=== PATIENT | male | born 1935 | race Native Hawaiian/Other Pacific Islander ===

== ENCOUNTER 2016-07-20 17:07 | Observation (INO) | payer MEDICARE, MEDICAID ==
[~2016-07-20] VITALS: Ht 172.7 cm; Wt 96.9 kg
[~2016-07-20 17:07] MED LIST: AMLO5TAB2 PO; CARB200T PO; CARV12.52 PO; FINA5TAB2 PO; HYDR-3533 PO; HYDR25TA5 PO; ISOS30TA3 PO; LATA0.002 EACH EYE; LISI40TA PO; METF500 PO; PLAV75TA29 PO; ROSU40 PO; SITA1TAB2 PO; TOPI1TAB36 PO; TYLETAB34 PO
[2016-07-20 17:10] VITALS: BP 158/93; PULSE 62; RESP 16; TEMP 97.5; O2SAT 100
[2016-07-20] MEDS ORDERED: SODIUM CHLORIDE 0.9% FLUSH 5 ML FLUSH IVF PRN (18:00)
--- NOTE | 2016-07-20 18:19 | RADHPO ---
EXAM DATE/TIME: 07/20/2016 18:05 [facility] COMPARISON: CHEST SINGLE AP, November 04, 2014, 13:20. INDICATIONS : Syncopal episode, dizziness, weakness starting today MEDICAL HISTORY : Hypertension. Cardiovascular disease. SURGICAL HISTORY : Pacemaker. Stent placement ENCOUNTER: Initial ACUITY: 1 day PAIN SCORE: 0/10 LOCATION: Bilateral chest FINDINGS: A single view of the chest demonstrates the lungs to be symmetrically aerated without evidence of mas s, infiltrate or effusion. The cardiomediastinal contours are unremarkable. Osseous structures are intact. Left-sided pacemaker with intact leads. Right-sided SIGNALLING AND 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 ENGINEER shunt seen. CONCLUSION: No acute disease. Martir Kim MD on July 20, 2016 at 18:17 Board Certified Radiologist. This report was verified electronically.
[2016-07-20 18:21] LABS: BLOOD, URINE TRACE (NEG); GLUCOSE,URINE NEG (NEG); KETONE, URINE NEG (NEG); NITRITE,URINE NEG (NEG)
[2016-07-20 18:25] LABS: AUTOMATED NEUTROPHIL # 5.5 TH/MM3 (1.8-7.7); BASOPHIL % 0.6 % (0.0-2.0); EOSINOPHIL # 0.2 TH/MM3 (0-0.4); EOSINOPHIL % 2.6 % (0.0-4.0); HEMATOCRIT 40.9 % (39.0-51.0); HEMO FLAGS DIFF FINAL; LYMPH % 12.4 % (9.0-44.0); LYMPHOCYTE # 0.9 TH/MM3 (1.0-4.8); MEAN CELL VOLUME 90.6 FL (80.0-100.0); MEAN CORPUSCULAR HEMOGLOBIN 29.4 PG (27.0-34.0); MEAN CORPUSCULAR HGB CONC 32.4 % (32.0-36.0); MONO % 7.2 % (0.0-8.0); NEUT % 77.2 % (16.0-70.0); PLATELET COUNT 214 TH/MM3 (150-450); RED BLOOD COUNT 4.51 MIL/MM3 (4.50-5.90); RED CELL DISTRIBUTION WIDTH 14.6 % (11.6-17.2); WHITE BLOOD COUNT 7.1 TH/MM3 (4.0-11.0)
[2016-07-20 18:26] LABS: METHOD OF COLLECTION CLEAN CATCH; URINE COLOR YELLOW (YELLW/STRAW)
[2016-07-20 18:27] LABS: COMMENT (UR) CULT NOT INDICATED; CULTURE IF INDICATED CULT NOT INDICATED; RBC, URINE 0-3 /hpf (0-3); SQUAMOUS EPITHELIAL CELL URINE 0-5 /hpf (0-5)
[2016-07-20 18:30] VITALS: BP 143/87; PULSE 63; RESP 14; O2SAT 96
[2016-07-20 18:34] LABS: CHLORIDE 113 MEQ/L (98-107); POTASSIUM 4.6 MEQ/L (3.5-5.1); SODIUM (NA) 145 MEQ/L (136-145)
[2016-07-20 18:38] LABS: ANION GAP 9 MEQ/L (5-15); BICARBONATE 23.1 MEQ/L (21.0-32.0); BLOOD UREA NITROGEN 26 MG/DL (7-18); MAGNESIUM 2.5 MG/DL (1.5-2.5)
[2016-07-20 18:41] LABS: ALT (GPT) 32 U/L (12-78); AST (GOT) 18 U/L (15-37); GLOMERULAR FILTRATION RATE 59 ML/MIN (>89)
[2016-07-20 18:43] LABS: TOTAL BILIRUBIN ADULT 0.2 MG/DL (0.2-1.0)
[2016-07-20 18:44] LABS: ALKALINE PHOSPHATASE 140 U/L (45-117)
[2016-07-20 18:57] LABS: APTT (PATIENT) 25.7 SEC (24.3-30.1); PROTHROMBIN TIME - PATIENT 10.8 SEC (9.8-11.6)
--- NOTE | 2016-07-20 19:12 | PD ---
HPI Chief Complaint: Syncope/Near-Syncope Time Seen by Provider: 17:43 Travel History International Travel<30 days: No Contact w/Intl Traveler<30days: No Traveled to known affect area: No History of Present Illness HPI This is a 80-year-old male with a history of 3 MIs with a pacemaker followed by Dr. Alex who presents to the emergency department with an episode earlier today where he was just sitting on the couch and started to feel lightheaded, dizzy like he was going to pass out. His was with him and says he went licea and wasn't responding for a short period of time. She said he looked like he was going to pass out. He denies any chest pain at the time. He denies any shortness of breath. He otherwise has been feeling fine prior to that. This is never happened to him before. PFSH Past Medical History Hx Anticoagulant Therapy: Yes (PLAVIX) Arthritis: Yes Asthma: No Anxiety: No Depression: Yes Heart Rhythm Problems: Yes Cancer: No Cardiac Catheterization: Yes Cardiovascular Problems: Yes (OH x3, HTN, CHOL) High Cholesterol: Yes Chemotherapy: No Chest Pain: Yes Congestive Heart Failure: No COPD: No Cerebrovascular Accident: No Coronary Artery Disease: Yes Diabetes: Yes Patient Takes Glucophage: Yes Diminished Hearing: No Endocrine: Yes Gastrointestinal Disorders: No GERD: No Genitourinary: Yes ("SLOW STARTING") Headaches: Yes Hiatal Hernia: No Hypertension: Yes Immune Disorder: No Implanted Vascular Access Dvce: Yes Kidney Stones: Yes Musculoskeletal: Yes (CHRONIC BACK PAIN) Neurologic: Yes Psychiatric: No Reproductive: No Respiratory: Yes Immunizations Current: Yes Migraines: Yes Myocardial Infarction: Yes (X3) Radiation Therapy: No Renal Failure: No Seizures: Yes Sickle Cell Disease: No Sleep Apnea: Yes Thyroid Disease: No Ulcer: No Past Surgical History AICD: No Arteriovenous Shunt: No Body Medical Devices: "SCREWS AND PLATES" TO LEFT ARM Cardiac Surgery: Yes (PACEMAKER: FEBRUARY 2016) Coronary Stent: Yes (X3) Ear Surgery: No Endocrine Surgery: No Eye Surgery: No Genitourinary Surgery: Yes (RIGHT KIDNEY WHEN YOUNGER, LITHROTRIPSY) Gynecologic Surgery: No Insulin Pump: No Joint Replacement: No Neurologic Surgery: Yes (BRAIN SHUNT) Oral Surgery: No Pacemaker: No Thoracic Surgery: No Other Surgery: Yes Social History Alcohol Use: No Tobacco Use: No Substance Use: No Allergies-Medications (Allergen,Severity, Reaction): Coded Allergies: Morphine (Verified Allergy, Severe, "doctor stated i was unconscious and shaking", 07/20/16) ?SEIZURE Reported Meds & Prescriptions Reported Meds & Active Scripts Active Lortab (Hydrocodone-Acetaminophen) 5-325 Mg Tab 1 Tab PO Q6H PRN Topiramate 50 Mg Tab 50 Mg PO BID Carvedilol 12.5 Mg Tab 12.5 Mg PO BID Reported Latanoprost Opth Drops (Latanoprost) 0.005% Drops 1 Drop EACH EYE HS Refrigerate until opened. Januvia (Sitagliptin Phosphate) 100 Mg Tab 100 Mg PO DAILY Finasteride 5 Mg Tab 5 Mg PO DAILY Do not crush. Isosorbide Mononitrate ER (Isosorbide Mononitrate) 30 Mg Trever 30 Mg PO DAILY Crestor (Rosuvastatin Calcium) 40 Mg Tab 40 Mg PO DAILY Hydrochlorothiazide 25 Mg Tab 25 Mg PO DAILY Tylenol-Codeine #3 (Acetaminophen-Codeine) 300-30 mg Tab 1 Tab PO Q4H PRN Plavix (Clopidogrel Bisulfate) 75 Mg Tab 75 Mg PO DAILY Carbamazepine 200 Mg Tab 200 Mg PO BID Lisinopril 40 Mg Tab 20 Mg PO DAILY Glucophage (Metformin HCl) 500 Mg Tab 1,000 Mg PO BIDPC With meals Amlodipine (Amlodipine Besylate) 5 Mg Tab 10 Mg PO DAILY Review of Systems Except as stated in HPI: all other systems reviewed are Neg Physical Exam Narrative GENERAL: Chronically ill-appearing SKIN: Warm and dry. HEAD: Atraumatic. Normocephalic. EYES: Pupils equal and round. No injection or drainage. ENT: Moist mucous membranes NECK: Trachea midline. CARDIOVASCULAR: Regular rate and rhythm. No murmur appreciated. Swelling of the right lower extremity greater than the left RESPIRATORY: Clear to auscultation. Breath sounds equal bilaterally. GASTROINTESTINAL: Abdomen soft, non-tender, nondistended. MUSCULOSKELETAL: No obvious deformities. NEUROLOGICAL: Awake and alert. No obvious cranial nerve deficits. Moving all extremities. PSYCHIATRIC: Appropriate mood and affect; insight and judgment normal. Data Data Last Documented VS Vital Signs Date Time Temp Pulse Resp B/P Pulse Ox O2 Delivery O2 Flow Rate FiO2 07/20/16 18:30 63 14 143/87 96 07/20/16 17:10 97.5 Orders Complete Blood Count With Diff (07/20/16 17:59) Comprehensive Metabolic Panel (07/20/16 17:59) Magnesium (Mg) (07/20/16 17:59) B-Type Natriuretic Peptide (07/20/16 17:59) Troponin I (07/20/16 17:59) Act Partial Throm Time (Ptt) (07/20/16 17:59) Prothrombin Time / Inr (Pt) (07/20/16 17:59) Urinalysis - C+S If Indicated (07/20/16 17:59) Chest, Single Ap (07/20/16 17:59) Ecg Monitoring (07/20/16 17:59) Iv Access Insert/Monitor (07/20/16 17:59) Oximetry (07/20/16 17:59) Sodium Chloride 0.9% Flush (Ns Flush) (07/20/16 18:00) Admit Order (Ed Use Only) (07/20/16 19:05) Labs Laboratory Tests Test 07/20/16 07/20/16 18:00 18:15 White Blood Count 7.1 TH/MM3 Red Blood Count 4.51 MIL/MM3 Hemoglobin 13.3 GM/DL Hematocrit 40.9 % Mean Corpuscular Volume 90.6 FL Mean Corpuscular Hemoglobin 29.4 PG Mean Corpuscular Hemoglobin 32.4 % Concent Red Cell Distribution Width 14.6 % Platelet Count 214 TH/MM3 Mean Platelet Volume 8.7 FL Neutrophils (%) (Auto) 77.2 % Lymphocytes (%) (Auto) 12.4 % Monocytes (%) (Auto) 7.2 % Eosinophils (%) (Auto) 2.6 % Basophils (%) (Auto) 0.6 % Neutrophils # (Auto) 5.5 TH/MM3 Lymphocytes # (Auto) 0.9 TH/MM3 Monocytes # (Auto) 0.5 TH/MM3 Eosinophils # (Auto) 0.2 TH/MM3 Basophils # (Auto) 0.0 TH/MM3 CBC Comment DIFF FINAL Differential Comment Prothrombin Time 10.8 SEC Prothromb Time International 1.0 RATIO Ratio Activated Partial 25.7 SEC Thromboplast Time Sodium Level 145 MEQ/L Potassium Level 4.6 MEQ/L Chloride Level 113 MEQ/L Carbon Dioxide Level 23.1 MEQ/L Anion Gap 9 MEQ/L Blood Urea Nitrogen 26 MG/DL Creatinine 1.20 MG/DL Estimat Glomerular Filtration 59 ML/MIN Rate Random Glucose 71 MG/DL Calcium Level 8.3 MG/DL Magnesium Level 2.5 MG/DL Total Bilirubin 0.2 MG/DL Aspartate Amino Transf 18 U/L (AST/SGOT) Alanine Aminotransferase 32 U/L (ALT/SGPT) Alkaline Phosphatase 140 U/L Troponin I LESS THAN 0.02 NG/ML Total Protein 7.3 GM/DL Albumin 3.5 GM/DL Urine Collection Type CLEAN CATCH Urine Color YELLOW Urine Turbidity CLEAR Urine pH 6.0 Urine Specific [place] 1.013 Urine Protein NEG mg/dL Urine Glucose (UA) NEG mg/dL Urine Ketones NEG mg/dL Urine Occult Blood TRACE Urine Nitrite NEG Urine Bilirubin NEG Urine Leukocyte Esterase NEG Urine RBC 0-3 /hpf Urine Squamous Epithelial 0-5 /hpf Cells Microscopic Urinalysis Comment CULT NOT INDICATED Urine Collection Time 18:15 [facility] Medical Decision Making Medical Screen Exam Complete: Yes Emergency Medical Condition: Yes Interpretation(s) EKG: Normal sinus rhythm, left axis deviation, right bundle branch block, T- wave inversions in the lateral leads No leukocytosis BUN is slightly elevated Troponin is normal Urinalysis: No infection Chest x-ray: No acute process Differential Diagnosis Arrhythmia, myocardial infarction, vasovagal syncope, dehydration Narrative Course This is a 80-year-old male who presents to the emergency department with a significant cardiac history with an episode of near syncope earlier today. He was placed on a monitor and an IV was established. EKG is similar to prior. Labs were obtained which were reassuring including a normal chest x-ray. Given the patient's significant cardiac history of think the patient should be placed in observation. I did call the [employer] tach who will come and evaluate the patient's pacemaker. Patient also has some right lower extremity swelling and a Doppler ultrasound was ordered Physician Communication Physician Communication Discussed with Dr. Gross Diagnosis Primary Impression: Near syncope Admitting Information Admitting Physician Requests: Observation Margy Covarrubias MD Jul 20, 2016 19:12
[2016-07-20] MEDS ORDERED: NALOXONE HCL 0.4 MG/ML AMP IV PRN (20:00)
[2016-07-20] MEDS ORDERED: SODIUM CHLORIDE 0.9% FLUSH 5 ML FLUSH FLUSH PRN (20:00)
--- NOTE | 2016-07-20 20:56 | RADHPO ---
EXAM DATE/TIME: 07/20/2016 20:24 [facility] COMPARISON: No previous studies available for comparison. INDICATIONS : Right leg swelling. MEDICAL HISTORY : Hypertension. Myocardial infarction. Hypercholesterolemia. Diabetic. Seizure. SURGICAL HISTORY : Pacemaker. Cardiac stent. ENCOUNTER: Initial ACUITY: 1 month PAIN SCORE: 4/10 LOCATION: Right leg. TECHNIQUE: Venous ultrasound of the leg was performed from the inguinal ligament to the proximal calf. Real-kee e, color Doppler and spectral tracing, compression and augmentation techniques were used. FINDINGS: There is normal compressibility of the deep venous system from the inguinal region to the proximal ca lf. No echogenic clot is seen in the lumen of the common femoral, femoral, popliteal, and posterior tibial veins. There is a normal response of the venous system to proximal and distal augmentation an d respiration. CONCLUSION: No DVT in the right leg. Martir Kim MD on July 20, 2016 at 20:54 Board Certified Radiologist. This report was verified electronically.
--- NOTE | 2016-07-20 20:59 | RADHPO ---
EXAM DATE/TIME: 07/20/2016 20:30 [facility] COMPARISON: No previous studies available for comparison. INDICATIONS : Syncope. MEDICAL HISTORY : Hypertension. Hypercholesterolemia. Myocardial infarction. Diabetic. Seizure. SURGICAL HISTORY : Pacemaker. Coronary stent. ENCOUNTER: Initial ACUITY: 1 day PAIN SCORE: 4/10 LOCATION: Bilateral neck PEAK SYSTOLIC VELOCITIES (cm/sec): ICA/CCA RATIO: Right: 0.9 Left: 0.9 ICA: Right: 81 Left: 72 CCA: Right: 87 Left: 97 ECA: Right: 68 Left: 94 VERTEBRAL: Right: 45 antegrade Left: 48 antegrade Elevated flow velocities and ICA/CCA ratios have been found to correlate with increased degrees of vessel stenosis, calculated as percentage of diameter relative to a normal segment of distal ICA/CCA FINDINGS: RIGHT CAROTID: No significant stenosis is visualized. Mild plaque. The waveforms are within normal limits. LEFT CAROTID: No significant stenosis is visualized. Mild plaque. The waveforms are within normal limits. VERTEBRAL ARTERIES: Antegrade flow is seen in both vertebral arteries. MISCELLANEOUS: None. CONCLUSION: No hemodynamically significant stenosis in either carotid artery. Martir Kim MD on July 20, 2016 at 20:57 Board Certified Radiologist. This report was verified electronically.
[2016-07-20 22:23] VITALS: BP 147/78; PULSE 70; RESP 20; TEMP 97.5; O2SAT 97
[2016-07-20] MEDS ORDERED: HYDROmorphone HCL PF 1 MG/ML VIAL IV PUSH ONE (22:30)
[2016-07-20] MEDS: SODIUM CHLORIDE 0.9% FLUSH 5 ML FLUSH FLUSH SCH (22:43)
[2016-07-21] VITALS: BP 162/92; PULSE 60; RESP 18; TEMP 97.7; O2SAT 96
[2016-07-21 00:30] VITALS: PULSE 59
[2016-07-21 04:00] VITALS: BP 150/89; PULSE 60; RESP 18; TEMP 97.2; O2SAT 96
[2016-07-21 06:04] LABS: AUTOMATED NEUTROPHIL # 3.9 TH/MM3 (1.8-7.7); BASOPHIL % 0.7 % (0.0-2.0); EOSINOPHIL # 0.2 TH/MM3 (0-0.4); EOSINOPHIL % 3.3 % (0.0-4.0); HEMATOCRIT 36.4 % (39.0-51.0); HEMO FLAGS DIFF FINAL; LYMPH % 20.1 % (9.0-44.0); LYMPHOCYTE # 1.1 TH/MM3 (1.0-4.8); MEAN CORPUSCULAR HEMOGLOBIN 30.3 PG (27.0-34.0); MEAN CORPUSCULAR HGB CONC 33.7 % (32.0-36.0); MONO % 7.8 % (0.0-8.0); NEUT % 68.1 % (16.0-70.0); PLATELET COUNT 185 TH/MM3 (150-450); RED BLOOD COUNT 4.04 MIL/MM3 (4.50-5.90); RED CELL DISTRIBUTION WIDTH 13.9 % (11.6-17.2); WHITE BLOOD COUNT 5.6 TH/MM3 (4.0-11.0)
[2016-07-21 06:10] LABS: POTASSIUM 4.8 MEQ/L (3.5-5.1)
[2016-07-21 06:13] LABS: BICARBONATE 26.3 MEQ/L (21.0-32.0)
[2016-07-21] MEDS: SODIUM CHLORIDE 0.9% FLUSH 5 ML FLUSH FLUSH SCH (07:49)
[2016-07-21 09:09] VITALS: BP 183/93; PULSE 60; RESP 16; TEMP 96.2; O2SAT 97
[2016-07-21] MEDS ORDERED: FINASTERIDE 5 MG TAB PO SCH (11:00)
[2016-07-21] MEDS ORDERED: CARVEDILOL 12.5 MG TAB PO SCH (11:00)
[2016-07-21] MEDS ORDERED: carBAMazepine 200 MG TAB PO SCH (11:00)
[2016-07-21] MEDS ORDERED: CLOPIDOGREL 75 MG TAB PO SCH (11:00)
[2016-07-21] MEDS ORDERED: LISINOPRIL 20 MG TAB PO SCH (11:00)
[2016-07-21] MEDS ORDERED: ISOSORBIDE MONONITRATE 30 MG TAB PO SCH (11:00)
[2016-07-21] MEDS ORDERED: ACETAMINOPHEN/CODEINE 300 MG/30 MG TAB PO PRN (11:00)
[2016-07-21] MEDS ORDERED: NON-FORMULARY DRUG (Rosuvastatin (Crestor) 40 MG) PO SCH (11:00)
[2016-07-21] MEDS ORDERED: amLODIPine BESYLATE 5 MG TAB PO SCH (11:00)
[2016-07-21] MEDS ORDERED: TOPIRAMATE 25 MG TAB PO SCH (11:00)
[2016-07-21] MEDS ORDERED: HYDROCHLOROTHIAZIDE 25 MG TAB PO SCH (11:00)
--- NOTE | 2016-07-21 11:27 | HHI.DCPOC ---
Discharge Care Plan Goals to Promote Your Health * To prevent worsening of your condition and complications * To maintain your health at the optimal level Directions to Meet Your Goals Take your medications as prescribed Follow your dietary instruction Follow activity as directed Keep your appointments as scheduled Take your immunizations and boosters as scheduled If your symptoms worsen call your PCP, if no PCP go to Urgent Care Center or Emergency Room Smoking is Dangerous to Your Health. Avoid second hand smoke Call the 24-hour hour crisis hotline for domestic abuse at So Carrillo MD Jul 21, 2016 11:27
--- NOTE | 2016-07-21 11:33 | HHI.HP ---
[facility] Service [facility] Primary Care Physician Duong Arguello MD Admission Diagnosis near syncope Diagnoses: Chief Complaint: Near syncopal episode Travel History International Travel<30 Days: No Contact w/Intl Traveler <30 Da: No Traveled to Known Affected Are: No History of Present Illness This patient is a 80-year-old gentleman with a history of coronary disease and a pacemaker who came to the emergency room with an episode of lightheaded feeling associated with dizziness. He did not pass out but felt very clammy. He was brought to the emergency room by his girlfriend. Patient notes no chest pain or shortness of breath prior to this episode. He has not had any nausea or vomiting and denies any recent infectious issues. He has not had any recent change in medications. He last saw his curbstone setter at the end of June and has been in his usual state of health. Here on telemetry he has had no arrhythmias, carotid ultrasounds and other images are unremarkable. Patient has not had any further symptoms. I did speak with Dr. Alex his curbstone setter who recommended patient see him and also further medical management and patient is agreeable to this plan. Review of Systems Constitutional: COMPLAINS OF: Diaphoretic episodes, DENIES: Fatigue, Fever, Weight gain, Weight loss, Chills, Dizziness, Change in appetite, Night Sweats Endocrine: DENIES: Heat/cold intolerance, Polydipsia, Polyuria, Polyphagia Eyes: DENIES: Blurred vision, Diplopia, Eye inflammation, Eye pain, Vision loss , Photosensitivity, Double Vision Ears, nose, mouth, throat: DENIES: Tinnitus, Hearing loss, Vertigo, Nasal discharge, Oral lesions, Throat pain, Hoarseness, Ear Pain, Running Nose, Epistaxis, Sinus Pain, Toothache, Odynophagia Respiratory: DENIES: Apneas, Cough, Snoring, Wheezing, Hemoptysis, Sputum production, Shortness of breath Cardiovascular: DENIES: Chest pain, Palpitations, Syncope, Dyspnea on Exertion , PND, Lower Extremity Edema, Orthopnea, Claudication Gastrointestinal: DENIES: Abdominal pain, Black stools, Bloody stools, Constipation, Diarrhea, Nausea, Vomiting, Difficulty Swallowing, Anorexia Genitourinary: DENIES: Sexual dysfunction, Urinary frequency, Urinary incontinence, Urgency, Hematuria, Dysuria, Nocturia, Penile Discharge, Testicular Pain, Testicular Swelling Musculoskeletal: DENIES: Joint pain, Muscle aches, Stiffness, Joint Swelling, Back pain, Neck pain Hematologic/lymphatic: DENIES: Bruising, Lymphadenopathy Immunologic/allergic: DENIES: Eczema, Urticaria Neurologic: DENIES: Abnormal gait, Headache, Localized weakness, Paresthesias, Seizures, Speech Problems, Tremor, Poor Balance Psychiatric: DENIES: Anxiety, Confusion, Mood changes, Depression, Hallucinations, Agitation, Suicidal Ideation, Homicidal Ideation, Delusions Past Family Social History Past Medical History Pace maker patient Chronic back pain History of seizures Kidney stones Coronary disease with stent 3 Prostate troubles Depression/anxiety Chronic back pain Diabetes and hypertension Past Surgical History Pacemaker placement Cardiac stenting Left arm surgery Brain shunt Reported Medications Reviewed in the medical record Allergies: Coded Allergies: Morphine (Verified Allergy, Severe, "doctor stated i was unconscious and shaking", 07/20/16) ?SEIZURE Active Ordered Medications Reviewed in the medical record Family History Family history of hypertension Social History No current tobacco or alcohol dependency, lives alone but has a girlfriend Physical Exam Vital Signs Vital Signs Date Time Temp Pulse Resp B/P Pulse Ox O2 Delivery O2 Flow Rate FiO2 07/21/16 09:09 96.2 60 16 183/93 97 07/21/16 04:00 97.2 60 18 150/89 96 07/21/16 00:30 59 07/21/16 00:00 97.7 60 18 162/92 96 07/20/16 22:23 97.5 70 20 147/78 97 Room Air 07/20/16 18:30 63 14 143/87 96 07/20/16 17:10 97.5 62 16 158/93 100 Physical Exam GENERAL: This is a well-nourished, well-developed patient, anxious but in no acute distress SKIN: No rashes, ecchymoses or lesions. Cool and dry. HEAD: Atraumatic. Normocephalic. No temporal or scalp tenderness. EYES: Pupils equal round and reactive. Extraocular motions intact. No scleral icterus. No injection or drainage. ENT: Nose without bleeding, purulent drainage or septal hematoma. Throat without erythema, tonsillar hypertrophy or exudate. Uvula midline. Airway patent. NECK: Trachea midline. No JVD or lymphadenopathy. Supple, nontender, no meningeal signs. CARDIOVASCULAR: Regular rate and rhythm without murmurs, gallops, or rubs. RESPIRATORY: Pacemaker palpable, Clear to auscultation. Breath sounds equal bilaterally. No wheezes, rales, or rhonchi. GASTROINTESTINAL: Abdomen soft, non-tender, nondistended. No hepato-splenomegaly , or palpable masses. No guarding. MUSCULOSKELETAL: Extremities without clubbing, cyanosis, or edema. No joint tenderness, effusion, or edema noted. No calf tenderness. Negative Homans sign bilaterally. NEUROLOGICAL: Awake and alert. Cranial nerves II through XII intact. Motor and sensory grossly within normal limits. Five out of 5 muscle strength in all muscle groups. Normal speech. Laboratory Laboratory Tests Test 07/20/16 07/20/16 07/21/16 07/21/16 18:00 18:15 00:10 05:27 White Blood Count 7.1 5.6 Red Blood Count 4.51 4.04 Hemoglobin 13.3 12.3 Hematocrit 40.9 36.4 Mean Corpuscular Volume 90.6 90.0 Mean Corpuscular Hemoglobin 29.4 30.3 Mean Corpuscular Hemoglobin 32.4 33.7 Concent Red Cell Distribution Width 14.6 13.9 Platelet Count 214 185 Mean Platelet Volume 8.7 8.5 Neutrophils (%) (Auto) 77.2 68.1 Lymphocytes (%) (Auto) 12.4 20.1 Monocytes (%) (Auto) 7.2 7.8 Eosinophils (%) (Auto) 2.6 3.3 Basophils (%) (Auto) 0.6 0.7 Neutrophils # (Auto) 5.5 3.9 Lymphocytes # (Auto) 0.9 1.1 Monocytes # (Auto) 0.5 0.4 Eosinophils # (Auto) 0.2 0.2 Basophils # (Auto) 0.0 0.0 CBC Comment DIFF FINAL DIFF FINAL Differential Comment Prothrombin Time 10.8 Prothromb Time International 1.0 Ratio Activated Partial 25.7 Thromboplast Time Sodium Level 145 146 Potassium Level 4.6 4.8 Chloride Level 113 113 Carbon Dioxide Level 23.1 26.3 Anion Gap 9 7 Blood Urea Nitrogen 26 24 Creatinine 1.20 1.20 Estimat Glomerular Filtration 59 59 Rate Random Glucose 71 109 Calcium Level 8.3 8.3 Magnesium Level 2.5 Total Bilirubin 0.2 Aspartate Amino Transf 18 (AST/SGOT) Alanine Aminotransferase 32 (ALT/SGPT) Alkaline Phosphatase 140 Troponin I LESS THAN 0.02 0.02 0.02 B-Type Natriuretic Peptide 39 Total Protein 7.3 Albumin 3.5 Urine Collection Type CLEAN CATCH Urine Color YELLOW Urine Turbidity CLEAR Urine pH 6.0 Urine Specific [place] 1.013 Urine Protein NEG Urine Glucose (UA) NEG Urine Ketones NEG Urine Occult Blood TRACE Urine Nitrite NEG Urine Bilirubin NEG Urine Leukocyte Esterase NEG Urine RBC 0-3 Urine Squamous Epithelial 0-5 Cells Microscopic Urinalysis Comment CULT NOT INDICATED Urine Collection Time 18:15 Total Creatine Kinase 276 258 Result Diagram: 07/21/1652607/21/16526 Imaging Last Impressions Chest X-Ray 07/20/16 1759 Signed Impressions: Service Date/Time: Wednesday, July 20, 2016 18:05 - CONCLUSION: No acute disease. Martir Kim MD Lower Extremity Ultrasound 07/20/16 0000 Signed Impressions: Service Date/Time: Wednesday, July 20, 2016 20:24 - CONCLUSION: No DVT in the right leg. Martir Kim MD Carotid Artery Ultrasound 07/20/16 0000 Signed Impressions: Service Date/Time: Wednesday, July 20, 2016 20:30 - CONCLUSION: No hemodynamically significant stenosis in either carotid artery. Martir Kim MD Assessment and Plan Problem List: (1) Pre-syncope ICD Code: R55 Status: Resolved Plan: Patient did have a near syncopal episode on the sofa which was unprovoked. At this point patient has no acute findings on telemetry, he appears to function well. Labs and images are unremarkable. This point patient will be discharged home to follow-up with his curbstone setter. I spoke with Dr. Alex who agrees with this plan. Patient will continue with his home medications Diabetes, hypertension, cardiac disease appears stable at this time Assessment and Plan Discharge home Activity unrestricted Diet diabetic, heart healthy So Carrillo MD Jul 21, 2016 11:33
--- NOTE | 2016-07-21 11:54 | EKG ---
Date Performed: 07/20/2016 Time Performed: 18:33:56 PTAGE: 80 years EKG: Possible ectopic atrial rhythm. Left axis deviation RBBB with left anterior fascicular bloc k Lateral T wave changes are nonspecific First degree AV block Since previous tracing, no significant change noted Abnormal ECG PREVIOUS TRACING : 07/20/2016 17.15 DOCTOR: Tony Wood Interpretating Date/Time 07/21/2016 11:54:31
--- NOTE | 2016-07-21 11:54 | EKG ---
Date Performed: 07/20/2016 Time Performed: 17:15:56 PTAGE: 80 years EKG: Sinus rhythm Left atrial abnormality Left axis deviation Left anterior fascicular block Left bundle branch block Anterior T wave abnormalities improved since the prior tracing. Abnormal ECGPREVIOUS TRACING : 06/11/2016 05.55 DOCTOR: Tony Wood Interpretating Date/Time 07/21/2016 11:54:15
[2016-07-21] MEDS ORDERED: ATORVASTATIN 40 MG TAB PO SCH (12:00)
[2016-07-21] MEDS ORDERED: ATORVASTATIN 80 MG TAB PO SCH (13:00)
--- NOTE | 2016-07-21 20:33 | EKG ---
Date Performed: 07/20/2016 Time Performed: 23:42:16 PTAGE: 80 years EKG: Atrial paced rhythm Left axis deviation Left anterior fascicular block RBBB Compared to brandon or tracing no significant change Abnormal ECG PREVIOUS TRACING : 07/20/2016 18.33 DOCTOR: Tony Wood Interpretating Date/Time 07/21/2016 20:32:06
--- NOTE | 2016-07-21 20:35 | EKG ---
Date Performed: 07/21/2016 Time Performed: 00:14:52 PTAGE: 80 years EKG: Atrial pacing Left axis deviation Left anterior fascicular block RBBB Compared to prior tra cing no significant change Abnormal ECG PREVIOUS TRACING : 07/20/2016 18.33 DOCTOR: Tony Wood Interpretating Date/Time 07/21/2016 20:37:32
--- NOTE | 2016-07-21 20:37 | EKG ---
Date Performed: 07/21/2016 Time Performed: 06:02:16 PTAGE: 80 years EKG: Atrial pacing Left axis deviation Left anterior fascicular block RBBB Compared to prior tra cing no significant change Abnormal ECG PREVIOUS TRACING : 07/21/2016 00.14 DOCTOR: Tony Wood Interpretating Date/Time 07/21/2016 20:38:27
--- NOTE | 2016-07-22 09:35 | EC ---
Study Study Date:07/21/2016 STUDY CONCLUSIONS SUMMARY - Left ventricle: The cavity size was normal. Wall thickness was normal. Systolic function was normal. The estimated ejection fraction was in the range of 50% to 55%. Wall motion was normal; there were no regional wall motion abnormalities. - Mitral valve: Mild regurgitation. - Tricuspid valve: Mild regurgitation. - Pulmonary arteries: PA peak pressure: 39mm Hg (S). If LV function is below 40, please consider prescribing an ACEI or ARB or document rationale for non-use. PROCEDURE DATA STUDY STATUS: Elective. Procedure: Transthoracic echocardiography. Image quality was good. Scanning was performed from the parasternal, apical, and subcostal acoustic windows. Study completion: The patient tolerated the procedure well. Transthoracic echocardiography. M-mode, complete 2D, complete spectral Doppler, and color Doppler. Patient status: Inpatient. CARDIAC ANATOMY LEFT VENTRICLE: The cavity size was normal. Wall thickness was normal. Systolic function was normal. The estimated ejection fraction was in the range of 50% to 55%. Wall motion was normal; there were no regional wall motion abnormalities. AORTIC VALVE: Trileaflet; normal thickness leaflets. Doppler: Transvalvular velocity was within the normal range. There was no stenosis. No regurgitation. AORTA: Aortic root: The aortic root was normal in size. MITRAL VALVE: Structurally normal valve. Doppler: Transvalvular velocity was within the normal range. There was no evidence for stenosis. Mild regurgitation. LEFT ATRIUM: The atrium was normal in size. RIGHT VENTRICLE: The cavity size was normal. Wall thickness was normal. PULMONIC VALVE: Doppler: Transvalvular velocity was within the normal range. There was no evidence for stenosis. No regurgitation. TRICUSPID VALVE: Structurally normal valve. Doppler: Transvalvular velocity was within the normal range. Mild regurgitation. PULMONARY ARTERY: The main pulmonary artery was normal-sized. Systolic pressure was within the normal range. RIGHT ATRIUM: The atrium was normal in size. PERICARDIUM: There was no pericardial effusion. SYSTEMIC VEINS: Inferior vena cava: The vessel was normal in size. BASIC MEASUREMENTS ADULT Normal Left ventricle LV internal dimension, ED, chordal level, 48.2 mm 43-52 PLAX LV internal dimension, ES, chordal level, 37.2 mm 23-38 PLAX Fractional shortening, chordal level, PLAX *23 % >29 LV posterior wall thickness, ED 14.9 mm IVS/LVPW ratio, ED *1.54 <1.3 Ventricular septum Septal thickness, ED 22.9 mm Aortic valve Leaflet separation 24 mm 15-26 Right ventricle RV internal dimension, ED, PLAX 25.1 mm 19-38 BASIC MEASUREMENTS ADULT Normal Aortic valve Leaflet separation 24 mm 15-26 Aorta Root diameter, ED *41 mm 20-37 Left atrium Anterior-posterior dimension, ES *46 mm 19-40 LA/aortic root ratio 1.12 DOPPLER MEASUREMENTS ADULT Normal Main pulmonary artery Pressure, S *39 mm Hg =30 Tricuspid valve Regurgitant peak velocity 269 cm/s Peak RV-RA gradient, S 29 mm Hg Maximal regurgitant velocity 269 cm/s Systemic veins Estimated CVP 10 mm Hg Right ventricle RV pressure, S *39 mm Hg <30 LEGEND: Mean values are shown as u=mean value. Asterisk (*) coon values outside specified normal range. Prepared and signed by Obi You [id number]
[2016-07-22] MEDS ORDERED: BLOOD GLUCOSE T1 TES (13:11)
[2016-07-22] MEDS ORDERED: LANCETS1 MI1 (13:13)
[2016-08-25] MEDS ORDERED: AMOX125S2 PO (11:12)
[2016-08-25] MEDS ORDERED: BENZ100 PO (11:12)
[2016-08-25] MEDS ORDERED: BLOOD PRESSURE1 M20 (11:24)
[2016-08-25] MEDS ORDERED: LORA10TA PO (11:28)
[2016-08-25] MEDS ORDERED: ALBU0.08 NEB (18:52)
[2016-08-30] MEDS ORDERED: CARB200T PO (15:07)
[2016-08-30] MEDS ORDERED: TAMS0.4C4 PO (15:07)
[2016-08-30] MEDS ORDERED: PLAV75TA29 PO (15:07)
[2016-09-30] MEDS ORDERED: TOPA100T11 PO (13:39)
[2016-11-10] MEDS ORDERED: Insulin Syringe (15:54)
[2016-11-23] MEDS ORDERED: CARV12.52 PO (15:23)
[2016-12-23] MEDS ORDERED: Insulin Syringe (13:28)
[2016-12-28] MEDS ORDERED: AUGM875T3 PO (15:17)
[2016-12-28] MEDS ORDERED: PRED20 PO (15:17)
[2017-01-02] MEDS ORDERED: BLOOD GLUCOSE T1 TES (15:19)
== END 2016-07-21 12:32 | disposition home or self-care (01) ==
LOC: PHED 17:07 → PHEDA 19:06 → PH3B 23:56
PROVIDERS: ADMIT Hospitalist; ATTEND Hospitalist
DX: R55 Syncope and collapse (principal); M79.89 Other specified soft tissue disorders; I10 Essential (primary) hypertension; I25.10 Atherosclerotic heart disease of native coronary artery without angina pectoris; I25.2 Old myocardial infarction; G47.30 Sleep apnea, unspecified; E11.9 Type 2 diabetes mellitus without complications; R94.31 Abnormal electrocardiogram [ECG] [EKG]; E78.00 Pure hypercholesterolemia, unspecified; M19.90 Unspecified osteoarthritis, unspecified site; Z95.0 Presence of cardiac pacemaker; Z95.5 Presence of coronary angioplasty implant and graft; Z87.442 Personal history of urinary calculi
CPT/HCPCS: 71010; 80048; 80053; 81001; 82550; 83735; 83880; 84484; 85025; 85610; 85730; 93005; 93306; 93880; 93971; 97162; 99285; G0378; G8987; G8988; J1170

== ENCOUNTER 2016-07-28 14:24 | Emergency (ER) | payer MEDICARE, MEDICAID ==
[~2016-07-28] VITALS: Ht 172.7 cm; Wt 97.0 kg
[~2016-07-28 14:24] MED LIST changes: +BLOOD GLUCOSE T1 TES; +LANCETS1 MI1
[2016-07-28 14:26] VITALS: BP 143/97; PULSE 79; RESP 24; TEMP 99.2; O2SAT 96
[2016-07-28] MEDS ORDERED: LANTUS2P SQ (14:56)
[2016-07-28] MEDS ORDERED: RESP: ALBUTEROL 2.5 MG/IPRATROPIUM 0.5 MG NEB (SCH) NEB ONE (15:30)
[2016-07-28] MEDS ORDERED: SODIUM CHLORIDE 0.9% FLUSH 5 ML FLUSH IVF PRN (15:30)
[2016-07-28] MEDS ORDERED: BENZONATATE 100 MG CAP PO ONE (15:30)
--- NOTE | 2016-07-28 15:54 | PD ---
HPI Chief Complaint: Respiratory Symptoms Time Seen by Provider: 14:33 Travel History International Travel<30 days: No Contact w/Intl Traveler<30days: No Traveled to known affect area: No History of Present Illness HPI Patient is 80-year-old male presents to emergency department with cough congestion and shortness of breath for the past 5 days. Patient states he recently had a long trip to [place] as well as a long trip to [place]. He started having symptoms in [place] went to an emergency department there and "they didn't do anything for me except a chest x-ray" and then he decided to return to the [facility]. Patient has a recent admission for near syncopal symptoms where he had an echocardiogram showing an EF of 5055%. Chest x-ray that time was negative he was observed overnight and was discharged in the next morning. He has not followed with a primary care physician since. PFSH Past Medical History Hx Anticoagulant Therapy: Yes (PLAVIX) Arthritis: Yes Asthma: No Anxiety: No Depression: Yes Heart Rhythm Problems: Yes Cancer: No Cardiac Catheterization: Yes Cardiovascular Problems: Yes (STENTS, CAD) High Cholesterol: Yes Chemotherapy: No Chest Pain: Yes Congestive Heart Failure: No COPD: No Cerebrovascular Accident: No Coronary Artery Disease: Yes Diabetes: Yes Patient Takes Glucophage: Yes Diminished Hearing: No Endocrine: Yes Gastrointestinal Disorders: No GERD: No Genitourinary: Yes ("SLOW STARTING") Headaches: Yes Hiatal Hernia: No Hypertension: Yes Immune Disorder: No Implanted Vascular Access Dvce: Yes Kidney Stones: Yes Musculoskeletal: Yes (CHRONIC BACK PAIN) Neurologic: Yes Psychiatric: No Reproductive: No Respiratory: Yes (COPD) Immunizations Current: Yes Migraines: Yes Myocardial Infarction: Yes (X3) Radiation Therapy: No Renal Failure: No Seizures: Yes Sickle Cell Disease: No Sleep Apnea: Yes Thyroid Disease: No Ulcer: No Past Surgical History AICD: No Arteriovenous Shunt: No Body Medical Devices: "SCREWS AND PLATES" TO LEFT ARM Cardiac Surgery: Yes (PACEMAKER: FEBRUARY 2016) Coronary Stent: Yes (X3) Ear Surgery: No Endocrine Surgery: No Eye Surgery: No Genitourinary Surgery: Yes (RIGHT KIDNEY WHEN YOUNGER, LITHROTRIPSY) Gynecologic Surgery: No Insulin Pump: No Joint Replacement: No Neurologic Surgery: Yes (BRAIN SHUNT) Oral Surgery: No Pacemaker: No Thoracic Surgery: No Other Surgery: Yes Social History Alcohol Use: No Tobacco Use: No Substance Use: No Allergies-Medications (Allergen,Severity, Reaction): Coded Allergies: Morphine (Verified Allergy, Severe, "doctor stated i was unconscious and shaking", 07/29/16) ?SEIZURE Reported Meds & Prescriptions Reported Meds & Active Scripts Active Nebulizer/Adult Mask (N/A) 1 Kit Kit 1 Kit .ROUTE DIRECTED Albuterol Neb (Albuterol Sulfate) 2.5 Mg/3 Ml Neb 2.5 Mg NEB Q4HR NEB While awake Ventolin Hfa 18 GM Inh (Albuterol Sulfate) 90 Mcg/Act Aer 2 Puff INH Q4-6H PRN Augmentin (Amoxicillin-Clavulanate) 500-125 mg Tab 500 Mg PO Q8H 10 Days Lancets 1 Mis Mis 1 Ea .ROUTE DIRECTED Lancets for Contour Glucometer - check blood glucose twice daily. Dispense: #200 lancets Blood Glucose Test Strips 1 Kaila Kaila 1 Ea .ROUTE DIRECTED Contour Test 100 Strips - check blood glucose twice daily. Dispense: #200 test strips Topiramate 50 Mg Tab 50 Mg PO BID Carvedilol 12.5 Mg Tab 12.5 Mg PO BID Reported Lantus Inj (Insulin Glargine) 1,000 Unit/10 Ml Vial 25 Units SQ HS Latanoprost Opth Drops (Latanoprost) 0.005% Drops 1 Drop EACH EYE HS Refrigerate until opened. Januvia (Sitagliptin Phosphate) 100 Mg Tab 100 Mg PO DAILY Finasteride 5 Mg Tab 5 Mg PO DAILY Do not crush. Isosorbide Mononitrate ER (Isosorbide Mononitrate) 30 Mg Trever 30 Mg PO DAILY Crestor (Rosuvastatin Calcium) 40 Mg Tab 40 Mg PO DAILY Hydrochlorothiazide 25 Mg Tab 25 Mg PO DAILY Plavix (Clopidogrel Bisulfate) 75 Mg Tab 75 Mg PO DAILY Carbamazepine 200 Mg Tab 200 Mg PO BID Lisinopril 40 Mg Tab 20 Mg PO DAILY Glucophage (Metformin HCl) 500 Mg Tab 1,000 Mg PO BIDPC With meals Amlodipine (Amlodipine Besylate) 5 Mg Tab 10 Mg PO DAILY Physical Exam Narrative GENERAL: Well-developed well-nourished no apparent distress SKIN: Warm and dry. HEAD: Atraumatic. Normocephalic. EYES: Pupils equal and round. No scleral icterus. No injection or drainage. ENT: No nasal bleeding or discharge. Mucous membranes pink and moist. NECK: Trachea midline. No JVD. CARDIOVASCULAR: Regular rate and rhythm. No murmur appreciated. RESPIRATORY: No accessory muscle use. Clear to auscultation. Breath sounds equal bilaterally. Mildly tachypneic no increased work of breathing. Scant wheeze and faint rales in the left base. GASTROINTESTINAL: Abdomen soft, non-tender, nondistended. Hepatic and splenic margins not palpable. MUSCULOSKELETAL: No obvious deformities. No clubbing. No cyanosis. No edema. NEUROLOGICAL: Awake and alert. No obvious cranial nerve deficits. Motor grossly within normal limits. Normal speech. PSYCHIATRIC: Appropriate mood and affect; insight and judgment normal. Data Data Last Documented VS Vital Signs Date Time Temp Pulse Resp B/P Pulse Ox O2 Delivery O2 Flow Rate FiO2 07/28/16 18:56 76 16 142/94 95 07/28/16 15:56 Room Air 07/28/16 14:26 99.2 Orders Electrocardiogram (07/28/16 14:45) Chest, Pa & Lat (07/28/16 ) Complete Blood Count With Diff (07/28/16 15:26) Comprehensive Metabolic Panel (07/28/16 15:26) Magnesium (Mg) (07/28/16 15:26) Prothrombin Time / Inr (Pt) (07/28/16 15:26) Act Partial Throm Time (Ptt) (07/28/16 15:26) Troponin I (07/28/16 15:26) Ecg Monitoring (07/28/16 15:26) Bilateral Bp Monitoring (07/28/16 15:26) Iv Access Insert/Monitor (07/28/16 15:26) Oximetry (07/28/16 15:26) Oxygen Administration (07/28/16 15:26) Sodium Chloride 0.9% Flush (Ns Flush) (07/28/16 15:30) Ct Pulmonary Angiogram (07/28/16 15:26) Albuterol-Ipratropium Neb (Duoneb Neb) (07/28/16 15:30) Benzonatate (Tessalon) (07/28/16 15:30) Acetaminophen (Tylenol) (07/28/16 16:00) Iohexol 350 Inj (Omnipaque 350 Inj) (07/28/16 16:53) Ondansetron Inj (Zofran Inj) (07/28/16 17:45) Hydromorphone Pf Inj (Dilaudid Pf Inj) (07/28/16 17:45) Labs Laboratory Tests Test 07/28/16 15:50 White Blood Count 4.9 TH/MM3 Red Blood Count 4.52 MIL/MM3 Hemoglobin 13.2 GM/DL Hematocrit 40.8 % Mean Corpuscular Volume 90.2 FL Mean Corpuscular Hemoglobin 29.2 PG Mean Corpuscular Hemoglobin 32.4 % Concent Red Cell Distribution Width 14.6 % Platelet Count 220 TH/MM3 Mean Platelet Volume 8.5 FL Neutrophils (%) (Auto) 70.2 % Lymphocytes (%) (Auto) 12.0 % Monocytes (%) (Auto) 9.1 % Eosinophils (%) (Auto) 7.1 % Basophils (%) (Auto) 1.6 % Neutrophils # (Auto) 3.5 TH/MM3 Lymphocytes # (Auto) 0.6 TH/MM3 Monocytes # (Auto) 0.4 TH/MM3 Eosinophils # (Auto) 0.3 TH/MM3 Basophils # (Auto) 0.1 TH/MM3 CBC Comment DIFF FINAL Differential Comment Prothrombin Time 10.2 SEC Prothromb Time International 0.9 RATIO Ratio Activated Partial 26.2 SEC Thromboplast Time Sodium Level 145 MEQ/L Potassium Level 4.0 MEQ/L Chloride Level 110 MEQ/L Carbon Dioxide Level 25.5 MEQ/L Anion Gap 10 MEQ/L Blood Urea Nitrogen 23 MG/DL Creatinine 1.20 MG/DL Estimat Glomerular Filtration 59 ML/MIN Rate Random Glucose 58 MG/DL Calcium Level 9.1 MG/DL Magnesium Level 2.4 MG/DL Total Bilirubin 0.3 MG/DL Aspartate Amino Transf 30 U/L (AST/SGOT) Alanine Aminotransferase 41 U/L (ALT/SGPT) Alkaline Phosphatase 126 U/L Troponin I LESS THAN 0.02 NG/ML Total Protein 7.3 GM/DL Albumin 3.4 GM/DL [facility] Medical Decision Making Medical Screen Exam Complete: Yes Emergency Medical Condition: Yes Differential Diagnosis CHF unlikely, pneumonia, PE, URI. Narrative Course Roomed in the emergency department, lab workup and CT PE was ordered, discussed with Dr. Zeng to follow workup and disposition properly. Scripts Nebulizer/Adult Mask 1 Kit Kit #1 KIT .ROUTE DIRECTED Ref 0 Prov:MacMahon,Anselmo MD 07/28/16 Albuterol Neb 2.5 Mg/3 Ml Neb2.5 Mg NEB Q4HR NEB #60 NEBULE Ref 0 While awake Prov:Anselmo Davis MD 07/28/16 Albuterol 18 GM Inh (Ventolin Hfa 18 GM Inh)90 Mcg/Act Aer2 Puff INH Q4-6H PRN ( SHORTNESS OF BREATH) #1 INHALER Ref 0 Prov:Anselmo Davis MD 07/28/16 Amoxicillin-Clavulanate (Augmentin)500-125 mg [id number] Mg PO Q8H 10 Days Ref 0 Prov:Anselmo Davis MD 07/28/16 Bhupinder Feranndez MD Jul 28, 2016 15:54
[2016-07-28 15:56] VITALS: BP 153/96; PULSE 76; RESP 16; RESP 18; O2SAT 95
[2016-07-28 16:00] LABS: AUTOMATED NEUTROPHIL # 3.5 TH/MM3 (1.8-7.7); BASOPHIL # 0.1 TH/MM3 (0-0.2); BASOPHIL % 1.6 % (0.0-2.0); EOSINOPHIL # 0.3 TH/MM3 (0-0.4); EOSINOPHIL % 7.1 % (0.0-4.0); HEMATOCRIT 40.8 % (39.0-51.0); HEMO FLAGS DIFF FINAL; LYMPHOCYTE # 0.6 TH/MM3 (1.0-4.8); MEAN CELL VOLUME 90.2 FL (80.0-100.0); MEAN CORPUSCULAR HEMOGLOBIN 29.2 PG (27.0-34.0); MEAN CORPUSCULAR HGB CONC 32.4 % (32.0-36.0); MONO % 9.1 % (0.0-8.0); NEUT % 70.2 % (16.0-70.0); PLATELET COUNT 220 TH/MM3 (150-450); RED BLOOD COUNT 4.52 MIL/MM3 (4.50-5.90); RED CELL DISTRIBUTION WIDTH 14.6 % (11.6-17.2); WHITE BLOOD COUNT 4.9 TH/MM3 (4.0-11.0)
[2016-07-28] MEDS ORDERED: ACETAMINOPHEN 325 MG TAB PO ONE (16:00)
[2016-07-28 16:06] LABS: CHLORIDE 110 MEQ/L (98-107); SODIUM (NA) 145 MEQ/L (136-145)
[2016-07-28 16:10] LABS: ANION GAP 10 MEQ/L (5-15); BICARBONATE 25.5 MEQ/L (21.0-32.0); BLOOD UREA NITROGEN 23 MG/DL (7-18); MAGNESIUM 2.4 MG/DL (1.5-2.5)
[2016-07-28 16:12] LABS: APTT (PATIENT) 26.2 SEC (24.3-30.1); INTERNATIONAL NORMALIZED RATIO 0.9 RATIO; PROTHROMBIN TIME - PATIENT 10.2 SEC (9.8-11.6)
[2016-07-28 16:13] LABS: ALT (GPT) 41 U/L (12-78); AST (GOT) 30 U/L (15-37); GLOMERULAR FILTRATION RATE 59 ML/MIN (>89)
[2016-07-28 16:15] LABS: TOTAL BILIRUBIN ADULT 0.3 MG/DL (0.2-1.0)
[2016-07-28 16:16] LABS: ALKALINE PHOSPHATASE 126 U/L (45-117)
--- NOTE | 2016-07-28 16:21 | RADHPO ---
EXAM DATE/TIME: 07/28/2016 16:02 [facility] COMPARISON: CHEST PA & LAT, June 11, 2016, 7:04. INDICATIONS : Patient states cough. MEDICAL HISTORY : Hypertension. Diabetes mellitus type II. Cardiovascular disease. SURGICAL HISTORY : Pacemaker. ENCOUNTER: Initial ACUITY: 1 week PAIN SCORE: 0/10 LOCATION: Bilateral chest FINDINGS: PA and lateral views of the chest demonstrate the lungs to be symmetrically aerated without evidence of mass, infiltrate or effusion. The cardiomediastinal contours are unremarkable. There is a left barreto bclavian AV sequential transvenous pacer in place. There is a ventriculoperitoneal shunt catheter pro jected over the right side of the chest. Osseous structures are intact. CONCLUSION: No acute disease. There is no evidence of pneumonia. Anthony Platt MD on July 28, 2016 at 16:16 Board Certified Radiologist. This report was verified electronically.
[2016-07-28 16:33] VITALS: BP_SYST 148; BP_SYST 156; BP_DIAS 90; BP_DIAS 96; PULSE 76
[2016-07-28] MEDS ORDERED: IOHEXOL 350 MG/ML 10 ML VIAL (for RAD DIAG) IV ONE (16:53)
--- NOTE | 2016-07-28 17:12 | RADHPO ---
EXAM DATE/TIME: 07/28/2016 16:36 [facility] COMPARISON: CT PULMONARY ANGIOGRAM, June 11, 2016, 8:25. INDICATIONS : Shortness of breath. Evaluate for pulmonary embolism. IV CONTRAST: 75 cc Omnipaque 350 (iohexol) IV RADIATION DOSE: 18.88 CTDIvol (mGy) MEDICAL HISTORY : Diabetes mellitus type 2. Chronic obstructive pulmonary disease. Cardiovascular disease SURGICAL HISTORY : Pacemaker. Coronary artery stent. ENCOUNTER: Initial ACUITY: 4 - 6 days PAIN SCALE: 9/10 LOCATION: chest TECHNIQUE: Volumetric scanning of the chest was performed using a pulmonary embolism protocol MIP images were re constructed. Using automated exposure control and adjustment of the mA and/or kV according to patien t size, radiation dose was kept as low as reasonably achievable to obtain optimal diagnostic quality images. FINDINGS: PULMONARY ARTERIES: No filling defects are seen in the pulmonary arteries through the segmental level. LUNGS: There is no pneumothorax . There is mild patchy opacity in the right middle lobe seen on images numb ers 73 and 74. There is a calcified granuloma in the left lower lobe. No concerning pulmonary nodule is visualized. PLEURAE: There is no pleural thickening or pleural effusion. MEDIASTINUM: There is good visualization of the great vessels of the middle mediastinum. No evidence of mediastin al or hilar adenopathy/mass. There are coronary artery calcifications there is MUSCULOSKELETAL: Within normal limits for patient age. MISCELLANEOUS: The visualized upper abdominal organs demonstrate no acute abnormality. There is a stable left thyroi d nodule again noted. Postsurgical changes are noted. The right adrenal gland is stable small adenoma . CONCLUSION: 1. No evidence of pulmonary embolism. 2. New small area of patchy opacity in the right middle lobe which could represent early pneumonia. 3. Coronary artery calcifications. 4. Stable appearing left thyroid nodule. Anthony Platt MD on July 28, 2016 at 17:06 Board Certified Radiologist. This report was verified electronically.
[2016-07-28] MEDS ORDERED: AUGM500T7 PO (17:26)
[2016-07-28] MEDS ORDERED: NEBULIZER/ADULT1 KIT (17:26)
[2016-07-28] MEDS ORDERED: ALBU0.08 NEB (17:26)
[2016-07-28] MEDS ORDERED: VENTAER INH (17:26)
--- NOTE | 2016-07-28 17:26 | PD ---
Physical Exam Date Seen by Provider: Jul 28, 2016 Time Seen by Provider: 17:20 Narrative This gentleman has been having cough and congestion for several days. He was seen initially by Dr. Fernandez. His chest x-ray was read as negative. His white count is only 4.9. A CT scan was done to assess for possible. CT is negative for PE but does show small area of pneumonia. He will be placed on Augmentin. He was given a nebulizer treatment here with good response and also prescribed albuterol. Data Data Last Documented VS Vital Signs Date Time Temp Pulse Resp B/P Pulse Ox O2 Delivery O2 Flow Rate FiO2 07/28/16 18:56 76 16 142/94 95 07/28/16 15:56 Room Air 07/28/16 14:26 99.2 Orders Electrocardiogram (07/28/16 14:45) Chest, Pa & Lat (07/28/16 ) Complete Blood Count With Diff (07/28/16 15:26) Comprehensive Metabolic Panel (07/28/16 15:26) Magnesium (Mg) (07/28/16 15:26) Prothrombin Time / Inr (Pt) (07/28/16 15:26) Act Partial Throm Time (Ptt) (07/28/16 15:26) Troponin I (07/28/16 15:26) Ecg Monitoring (07/28/16 15:26) Bilateral Bp Monitoring (07/28/16 15:26) Iv Access Insert/Monitor (07/28/16 15:26) Oximetry (07/28/16 15:26) Oxygen Administration (07/28/16 15:26) Sodium Chloride 0.9% Flush (Ns Flush) (07/28/16 15:30) Ct Pulmonary Angiogram (07/28/16 15:26) Albuterol-Ipratropium Neb (Duoneb Neb) (07/28/16 15:30) Benzonatate (Tessalon) (07/28/16 15:30) Acetaminophen (Tylenol) (07/28/16 16:00) Iohexol 350 Inj (Omnipaque 350 Inj) (07/28/16 16:53) Ondansetron Inj (Zofran Inj) (07/28/16 17:45) Hydromorphone Pf Inj (Dilaudid Pf Inj) (07/28/16 17:45) Labs Laboratory Tests Test 07/28/16 15:50 White Blood Count 4.9 TH/MM3 Red Blood Count 4.52 MIL/MM3 Hemoglobin 13.2 GM/DL Hematocrit 40.8 % Mean Corpuscular Volume 90.2 FL Mean Corpuscular Hemoglobin 29.2 PG Mean Corpuscular Hemoglobin 32.4 % Concent Red Cell Distribution Width 14.6 % Platelet Count 220 TH/MM3 Mean Platelet Volume 8.5 FL Neutrophils (%) (Auto) 70.2 % Lymphocytes (%) (Auto) 12.0 % Monocytes (%) (Auto) 9.1 % Eosinophils (%) (Auto) 7.1 % Basophils (%) (Auto) 1.6 % Neutrophils # (Auto) 3.5 TH/MM3 Lymphocytes # (Auto) 0.6 TH/MM3 Monocytes # (Auto) 0.4 TH/MM3 Eosinophils # (Auto) 0.3 TH/MM3 Basophils # (Auto) 0.1 TH/MM3 CBC Comment DIFF FINAL Differential Comment Prothrombin Time 10.2 SEC Prothromb Time International 0.9 RATIO Ratio Activated Partial 26.2 SEC Thromboplast Time Sodium Level 145 MEQ/L Potassium Level 4.0 MEQ/L Chloride Level 110 MEQ/L Carbon Dioxide Level 25.5 MEQ/L Anion Gap 10 MEQ/L Blood Urea Nitrogen 23 MG/DL Creatinine 1.20 MG/DL Estimat Glomerular Filtration 59 ML/MIN Rate Random Glucose 58 MG/DL Calcium Level 9.1 MG/DL Magnesium Level 2.4 MG/DL Total Bilirubin 0.3 MG/DL Aspartate Amino Transf 30 U/L (AST/SGOT) Alanine Aminotransferase 41 U/L (ALT/SGPT) Alkaline Phosphatase 126 U/L Troponin I LESS THAN 0.02 NG/ML Total Protein 7.3 GM/DL Albumin 3.4 GM/DL [facility] Medical Record Reviewed: Yes Supervised Visit with KHUSHBU: No Differential Diagnosis Differential includes pneumonia, COPD, CHF Narrative Course Patient had a response to albuterol with diminished cough. White count suggests viral infection CT does show pneumonia. He will be treated with Augmentin and albuterol Diagnosis Primary Impression: Pneumonia Qualified Code: J18.1 - Pneumonia of right middle lobe due to infectious organism Scripts Nebulizer/Adult Mask 1 Kit Kit #1 KIT .ROUTE DIRECTED Ref 0 Prov:Anselmo Davis MD 07/28/16 Albuterol Neb 2.5 Mg/3 Ml Neb2.5 Mg NEB Q4HR NEB #60 NEBULE Ref 0 While awake Prov:Anselmo Davis MD 07/28/16 Albuterol 18 GM Inh (Ventolin Hfa 18 GM Inh)90 Mcg/Act Aer2 Puff INH Q4-6H PRN ( SHORTNESS OF BREATH) #1 INHALER Ref 0 Prov:Anselmo Davis MD 07/28/16 Amoxicillin-Clavulanate (Augmentin)500-125 mg [id number] Mg PO Q8H 10 Days Ref 0 Prov:Anselmo Davis MD 07/28/16 Disposition: 01 DISCHARGE HOME Condition: Stable Anselmo Davis MD Jul 28, 2016 17:26
[2016-07-28] MEDS ORDERED: ONDANSETRON HCL 4 MG/2 ML VIAL IV PUSH ONE (17:45)
[2016-07-28] MEDS ORDERED: HYDROmorphone HCL PF 1 MG/ML VIAL IV PUSH ONE (17:45)
[2016-07-28 18:56] VITALS: BP 142/94; RESP 16
--- NOTE | 2016-07-29 22:55 | EKG ---
Date Performed: 07/28/2016 Time Performed: 14:45:08 PTAGE: 80 years EKG: Possible ectopic atrial rhythm Left axis deviation RBBB with left anterior fascicular block Possible septal infarct - age undetermined Abnormal ECG PREVIOUS TRACING : 07/21/2016 06.02 DOCTOR: Jim Arbeu Interpretating Date/Time 07/29/2016 22:49:03
[2016-08-25] MEDS ORDERED: BENZ100 PO (11:12)
[2016-08-25] MEDS ORDERED: AMOX125S2 PO (11:12)
[2016-08-25] MEDS ORDERED: BLOOD PRESSURE1 M20 (11:24)
[2016-08-25] MEDS ORDERED: LORA10TA PO (11:28)
[2016-08-25] MEDS ORDERED: ALBU0.08 NEB (18:52)
[2016-08-30] MEDS ORDERED: CARB200T PO (15:07)
[2016-08-30] MEDS ORDERED: PLAV75TA29 PO (15:07)
[2016-08-30] MEDS ORDERED: TAMS0.4C4 PO (15:07)
[2016-09-30] MEDS ORDERED: TOPA100T11 PO (13:39)
[2016-11-10] MEDS ORDERED: Insulin Syringe (15:54)
[2016-11-23] MEDS ORDERED: CARV12.52 PO (15:23)
[2016-12-23] MEDS ORDERED: Insulin Syringe (13:28)
[2016-12-28] MEDS ORDERED: PRED20 PO (15:17)
[2016-12-28] MEDS ORDERED: AUGM875T3 PO (15:17)
[2017-01-02] MEDS ORDERED: BLOOD GLUCOSE T1 TES (15:19)
== END 2016-07-28 19:03 | disposition home or self-care (01) ==
LOC: PHED 14:24
DX: J18.1 Lobar pneumonia, unspecified organism (principal); R05 Cough; I10 Essential (primary) hypertension; E11.9 Type 2 diabetes mellitus without complications; E78.00 Pure hypercholesterolemia, unspecified; I25.10 Atherosclerotic heart disease of native coronary artery without angina pectoris; R94.31 Abnormal electrocardiogram [ECG] [EKG]; Z79.01 Long term (current) use of anticoagulants
CPT/HCPCS: 71020; 71275; 80053; 83735; 84484; 85025; 85610; 85730; 93005; 94664; 96374; 96375; 99284; J1170; J2405; Q9967

== ENCOUNTER 2016-07-29 19:49 | Inpatient (IN) | payer MEDICARE, MEDICAID ==
[~2016-07-29] VITALS: Ht 172.7 cm; Wt 95.5 kg
[~2016-07-29 19:49] MED LIST changes: +ALBU0.08 NEB; +AUGM500T7 PO; -HYDR-3533 PO; +LANTUS2P SQ; +NEBULIZER/ADULT1 KIT; +VENTAER INH
[2016-07-29 19:51] VITALS: BP 188/89; PULSE 78; RESP 20; TEMP 97.9; O2SAT 94
[2016-07-29] MEDS ORDERED: NITROGLYCERIN 0.4 MG SL 25 TABS/BTL SL ONE (20:30)
[2016-07-29] MEDS ORDERED: cefTRIAXone INJ 1,000 MG in SODIUM CHLORIDE 0.9% INJ 100 ML IV ONE (20:30)
[2016-07-29] MEDS ORDERED: RESP: ALBUTEROL 2.5 MG/IPRATROPIUM 0.5 MG NEB (SCH) NEB ONE ×2 (20:30→21:15)
[2016-07-29] MEDS ORDERED: ASPIRIN 81 MG CHEW TAB CHEW ONE (20:30)
--- NOTE | 2016-07-29 20:33 | PD ---
HPI Chief Complaint: Chest Pain Time Seen by Provider: 20:21 Travel History International Travel<30 days: No Contact w/Intl Traveler<30days: No Traveled to known affect area: No History of Present Illness HPI 80-year-old male presents to the emergency department by private transportation for complaint of shortness of breath cough and chest pain. Patient was recently seen in the emergency department yesterday and diagnosed with an early pneumonia and started on Augmentin. Patient denies any fever or chills or productive cough. Patient also complains of chest pain and has had previous KS 3 with stent placement. Patient describes discomfort as a heaviness and 9/10 rated as intensity. Patient also has noted some lower extremity swelling. Patient denies any previous history of congestive heart failure. Patient does have history of diabetes, seizure disorder, dyslipidemia, atrial fibrillation, hypertension, myocardial infarction cardiac arrest stent placement dyslipidemia cerebral shunt and pacemaker. PFSH Past Medical History Narrative Medical diabetes, seizure disorder, dyslipidemia, atrial fibrillation, hypertension, myocardial infarction cardiac arrest stent placement dyslipidemia cerebral shunt and pacemaker; nursing notes reviewed Hx Anticoagulant Therapy: Yes (PLAVIX) Arthritis: Yes Asthma: No Anxiety: No Depression: Yes Heart Rhythm Problems: Yes Cancer: No Cardiac Catheterization: Yes Cardiovascular Problems: Yes (STENTx3/PACEMAKER/MIx3/CARDIAC ARRESTx2) High Cholesterol: Yes Chemotherapy: No Chest Pain: Yes Congestive Heart Failure: No COPD: No Cerebrovascular Accident: No Coronary Artery Disease: Yes Diabetes: Yes (INSULIN DEPENDENT/METFORMIN) Diminished Hearing: No Endocrine: Yes Gastrointestinal Disorders: No GERD: No Genitourinary: Yes ("SLOW STARTING") Headaches: Yes Hiatal Hernia: No Hypertension: Yes Immune Disorder: No Implanted Vascular Access Dvce: Yes Kidney Stones: Yes Musculoskeletal: Yes (CHRONIC BACK PAIN) Neurologic: Yes Psychiatric: No Reproductive: No Respiratory: Yes (PNA) Immunizations Current: Yes Migraines: Yes Myocardial Infarction: Yes (X3) Radiation Therapy: No Renal Failure: No Seizures: Yes Sickle Cell Disease: No Sleep Apnea: Yes Thyroid Disease: No Ulcer: No Past Surgical History AICD: No Arteriovenous Shunt: No Body Medical Devices: "SCREWS AND PLATES" TO LEFT ARM Cardiac Surgery: Yes (PACEMAKER: FEBRUARY 2016) Coronary Stent: Yes (X3) Ear Surgery: No Endocrine Surgery: No Eye Surgery: No Genitourinary Surgery: Yes (RIGHT KIDNEY WHEN YOUNGER, LITHROTRIPSY) Gynecologic Surgery: No Insulin Pump: No Joint Replacement: No Neurologic Surgery: Yes (since 6:30 was added on) Oral Surgery: No Pacemaker: No Thoracic Surgery: No Other Surgery: Yes Social History Alcohol Use: No Tobacco Use: No Substance Use: No Allergies-Medications (Allergen,Severity, Reaction): Coded Allergies: Morphine (Verified Allergy, Severe, "doctor stated i was unconscious and shaking", 07/29/16) ?SEIZURE Reported Meds & Prescriptions Reported Meds & Active Scripts Active Nebulizer/Adult Mask (N/A) 1 Kit Kit 1 Kit .ROUTE DIRECTED Albuterol Neb (Albuterol Sulfate) 2.5 Mg/3 Ml Neb 2.5 Mg NEB Q4HR NEB While awake Ventolin Hfa 18 GM Inh (Albuterol Sulfate) 90 Mcg/Act Aer 2 Puff INH Q4-6H PRN Augmentin (Amoxicillin-Clavulanate) 500-125 mg Tab 500 Mg PO Q8H 10 Days Lancets 1 Mis Mis 1 Ea .ROUTE DIRECTED Lancets for Contour Glucometer - check blood glucose twice daily. Dispense: #200 lancets Blood Glucose Test Strips 1 Kaila Kaila 1 Ea .ROUTE DIRECTED Contour Test 100 Strips - check blood glucose twice daily. Dispense: #200 test strips Topiramate 50 Mg Tab 50 Mg PO BID Carvedilol 12.5 Mg Tab 12.5 Mg PO BID Reported Lantus Inj (Insulin Glargine) 1,000 Unit/10 Ml Vial 25 Units SQ HS Latanoprost Opth Drops (Latanoprost) 0.005% Drops 1 Drop EACH EYE HS Refrigerate until opened. Januvia (Sitagliptin Phosphate) 100 Mg Tab 100 Mg PO DAILY Finasteride 5 Mg Tab 5 Mg PO DAILY Do not crush. Isosorbide Mononitrate ER (Isosorbide Mononitrate) 30 Mg Trever 30 Mg PO DAILY Crestor (Rosuvastatin Calcium) 40 Mg Tab 40 Mg PO DAILY Hydrochlorothiazide 25 Mg Tab 25 Mg PO DAILY Plavix (Clopidogrel Bisulfate) 75 Mg Tab 75 Mg PO DAILY Carbamazepine 200 Mg Tab 200 Mg PO BID Lisinopril 40 Mg Tab 20 Mg PO DAILY Glucophage (Metformin HCl) 500 Mg Tab 1,000 Mg PO BIDPC With meals Amlodipine (Amlodipine Besylate) 5 Mg Tab 10 Mg PO DAILY Review of Systems Except as stated in HPI: all other systems reviewed are Neg General / Constitutional: No: Fever, Chills HENT: No: Congestion Cardiovascular: Positive: Chest Pain or Discomfort Respiratory: Positive: Cough, Shortness of Breath, Wheezing Gastrointestinal: No: Vomiting, Abdominal Pain Genitourinary: No: Flank Pain Musculoskeletal: Positive: Edema, No: Myalgias, Arthralgias Skin: No Rash Neurologic: No: Weakness Psychiatric: Positive: Anxiety Hematologic/Lymphatic: No: Lymph Node Enlargement Physical Exam Narrative GENERAL: Well-developed well-nourished male in obvious discomfort and extubating some work of breathing with ongoing nonproductive cough; gcs 15 SKIN: Warm and dry. HEAD: Normocephalic. EYES: No scleral icterus. No injection or drainage. NECK: Supple, trachea midline. No JVD or lymphadenopathy. CARDIOVASCULAR: Regular rate and rhythm without murmurs, gallops, or rubs. RESPIRATORY: Breath sounds equal bilaterally diminished breath sounds with expiratory wheezing. No accessory muscle use. GASTROINTESTINAL: Abdomen soft, non-tender, nondistended. MUSCULOSKELETAL: No cyanosis, or edema. Bilateral radial and herself pedis pulses 2+ to palpation BACK: Nontender without obvious deformity. No CVA tenderness. Data Data Last Documented VS Vital Signs Date Time Temp Pulse Resp B/P Pulse Ox O2 Delivery O2 Flow Rate FiO2 07/29/16 21:44 20 152/65 98 Nasal Cannula 3 07/29/16 21:17 77 07/29/16 19:51 97.9 Orders Electrocardiogram (07/29/16 19:59) Complete Blood Count With Diff (07/29/16 19:59) Basic Metabolic Panel (Bmp) (07/29/16 19:59) Ckmb (Isoenzyme) Profile (07/29/16 19:59) Troponin I (07/29/16 19:59) Chest, Single Ap (07/29/16 19:59) Iv Access Insert/Monitor (07/29/16 19:59) Ecg Monitoring (07/29/16 19:59) Oxygen Administration (07/29/16 19:59) Oximetry (07/29/16 19:59) Act Partial Throm Time (Ptt) (07/29/16 19:59) B-Type Natriuretic Peptide (07/29/16 20:21) Blood Culture (07/29/16 20:21) Lactic Acid (07/29/16 20:21) Aspirin Chew (Aspirin Chew) (07/29/16 20:30) Nitroglycerin Sl (Nitrostat Sl) (07/29/16 20:30) Albuterol-Ipratropium Neb (Duoneb Neb) (07/29/16 20:30) Ceftriaxone Inj (Rocephin Inj) (07/29/16 20:30) Albuterol-Ipratropium Neb (Duoneb Neb) (07/29/16 21:15) CKMB (07/29/16 20:51) CKMB% (07/29/16 20:51) Nitroglycerin 2% Oint (Nitroglycerin 2% (07/29/16 22:00) Admit Order (Ed Use Only) (07/29/16 ) ^ Saline Lock (07/29/16 22:45) Resp Oxygen Chung C Titrat 1-4 L (07/29/16 ) ^ Notify Dr: Other (07/29/16 22:45) Sodium Chloride 0.9% Flush (Ns Flush) (07/30/16 09:00) Sodium Chloride 0.9% Flush (Ns Flush) (07/29/16 22:45) Azithromycin Inj (Zithromax Inj) (07/29/16 23:00) Physician Name Changes (07/29/16 22:50) Labs Laboratory Tests Test 07/29/16 20:51 White Blood Count 5.6 TH/MM3 Red Blood Count 4.30 MIL/MM3 Hemoglobin 13.0 GM/DL Hematocrit 38.6 % Mean Corpuscular Volume 89.7 FL Mean Corpuscular Hemoglobin 30.1 PG Mean Corpuscular Hemoglobin 33.6 % Concent Red Cell Distribution Width 14.8 % Platelet Count 205 TH/MM3 Mean Platelet Volume 8.8 FL Neutrophils (%) (Auto) 62.7 % Lymphocytes (%) (Auto) 18.9 % Monocytes (%) (Auto) 10.0 % Eosinophils (%) (Auto) 7.4 % Basophils (%) (Auto) 1.0 % Neutrophils # (Auto) 3.5 TH/MM3 Lymphocytes # (Auto) 1.1 TH/MM3 Monocytes # (Auto) 0.6 TH/MM3 Eosinophils # (Auto) 0.4 TH/MM3 Basophils # (Auto) 0.1 TH/MM3 CBC Comment DIFF FINAL Differential Comment Activated Partial 26.6 SEC Thromboplast Time Sodium Level 140 MEQ/L Potassium Level 4.2 MEQ/L Chloride Level 106 MEQ/L Carbon Dioxide Level 24.8 MEQ/L Anion Gap 9 MEQ/L Blood Urea Nitrogen 25 MG/DL Creatinine 1.45 MG/DL Estimat Glomerular Filtration 47 ML/MIN Rate Random Glucose 119 MG/DL Lactic Acid Level 1.5 mmol/L Calcium Level 8.3 MG/DL Total Creatine Kinase 739 U/L Creatine Kinase MB 10.8 NG/ML Creatine Kinase MB % 1.5 % Troponin I 0.03 NG/ML B-Type Natriuretic Peptide 35 PG/ML MDM Medical Decision Making Medical Screen Exam Complete: Yes Emergency Medical Condition: Yes Medical Record Reviewed: Yes Interpretation(s) Laboratory Tests Test 07/29/16 20:51 White Blood Count 5.6 TH/MM3 Red Blood Count 4.30 MIL/MM3 Hemoglobin 13.0 GM/DL Hematocrit 38.6 % Mean Corpuscular Volume 89.7 FL Mean Corpuscular Hemoglobin 30.1 PG Mean Corpuscular Hemoglobin 33.6 % Concent Red Cell Distribution Width 14.8 % Platelet Count 205 TH/MM3 Mean Platelet Volume 8.8 FL Neutrophils (%) (Auto) 62.7 % Lymphocytes (%) (Auto) 18.9 % Monocytes (%) (Auto) 10.0 % Eosinophils (%) (Auto) 7.4 % Basophils (%) (Auto) 1.0 % Neutrophils # (Auto) 3.5 TH/MM3 Lymphocytes # (Auto) 1.1 TH/MM3 Monocytes # (Auto) 0.6 TH/MM3 Eosinophils # (Auto) 0.4 TH/MM3 Basophils # (Auto) 0.1 TH/MM3 CBC Comment DIFF FINAL Differential Comment Activated Partial 26.6 SEC Thromboplast Time Sodium Level 140 MEQ/L Potassium Level 4.2 MEQ/L Chloride Level 106 MEQ/L Carbon Dioxide Level 24.8 MEQ/L Anion Gap 9 MEQ/L Blood Urea Nitrogen 25 MG/DL Creatinine 1.45 MG/DL Estimat Glomerular Filtration 47 ML/MIN Rate Random Glucose 119 MG/DL Lactic Acid Level 1.5 mmol/L Calcium Level 8.3 MG/DL Total Creatine Kinase 739 U/L Creatine Kinase MB 10.8 NG/ML Creatine Kinase MB % 1.5 % Troponin I 0.03 NG/ML B-Type Natriuretic Peptide 35 PG/ML Last Impressions Chest X-Ray 07/29/161958 Signed Impressions: Service Date/Time: Friday, July 29, 2016 20:15 - CONCLUSION: 1. Minimal basilar atelectasis or scarring. Mild cardiomegaly. Milan Ash MD Differential Diagnosis Dyspnea, pneumonia, COPD, CHF, ACS, KS; patient had CTA pulmonary angiogram yesterday showed no evidence of PE and area of early pneumonia Narrative Course Patient placed on campus monitor IV access obtained specimens collected and sent for resulting EKG performed no acute ST elevation; patient with x-ray wheeze administered DuoNeb updraft 1 patient also complaining of chest tightness and heaviness feels like someone is sitting on him therefore administered aspirin 162 milligrams times one dose along with sublingual nitroglycerin for complaint of 9/10 intensity pain. Patient administered Rocephin 1 g IV piggyback for recent diagnosis of pneumonia after blood cultures and lactic acid obtained. Will add azithromycin for CAP Patient clinically improved after updrafts also notes decreased chest discomfort after ntg plan to arianna for serial cardiac enzymes and ongoing antibiotics and bronchodilator therapy Physician Communication Physician Communication discussed withresident service ---cover for Dr Ba will admit to Dr Elizabeth Diagnosis Primary Impression: Chest pain Additional Impression: Pneumonia Leslie Osorio MD Jul 29, 2016 20:33
[2016-07-29 21:17] VITALS: BP 121/91; PULSE 77; RESP 24; O2SAT 95
[2016-07-29 21:18] VITALS: RESP 22; O2SAT 95
[2016-07-29 21:20] VITALS: O2SAT 96
[2016-07-29 21:20] LABS: APTT (PATIENT) 26.6 SEC (24.3-30.1)
--- NOTE | 2016-07-29 21:38 | RADRPT ---
EXAM DATE/TIME: 07/29/2016 20:15 [facility] COMPARISON: CHEST SINGLE AP, July 20, 2016, 18:05. INDICATIONS : Cough, congestion starting today MEDICAL HISTORY : Hypertension. Cardiovascular disease. SURGICAL HISTORY : Pacemaker. Stent placement ENCOUNTER: Initial ACUITY: 1 day PAIN SCORE: 0/10 LOCATION: Bilateral chest FINDINGS: A single view of the chest demonstrates shunt tubing overlying right hemithorax. Pacer leads in right atrium and right ventricle. Minimal basilar atelectasis or scarring. CONCLUSION: 1. Minimal basilar atelectasis or scarring. Mild cardiomegaly. Milan Ash MD on July 29, 2016 at 21:36 Board Certified Radiologist. This report was verified electronically.
[2016-07-29 21:39] LABS: BICARBONATE 24.8 MEQ/L (21.0-32.0); POTASSIUM 4.2 MEQ/L (3.5-5.1)
[2016-07-29 21:41] VITALS: RESP 20; O2SAT 97
[2016-07-29 21:41] LABS: AUTOMATED NEUTROPHIL # 3.5 TH/MM3 (1.8-7.7); BASOPHIL # 0.1 TH/MM3 (0-0.2); EOSINOPHIL # 0.4 TH/MM3 (0-0.4); EOSINOPHIL % 7.4 % (0.0-4.0); HEMATOCRIT 38.6 % (39.0-51.0); HEMO FLAGS DIFF FINAL; LYMPH % 18.9 % (9.0-44.0); LYMPHOCYTE # 1.1 TH/MM3 (1.0-4.8); MEAN CELL VOLUME 89.7 FL (80.0-100.0); MEAN CORPUSCULAR HEMOGLOBIN 30.1 PG (27.0-34.0); MEAN CORPUSCULAR HGB CONC 33.6 % (32.0-36.0); NEUT % 62.7 % (16.0-70.0); PLATELET COUNT 205 TH/MM3 (150-450); RED CELL DISTRIBUTION WIDTH 14.8 % (11.6-17.2); WHITE BLOOD COUNT 5.6 TH/MM3 (4.0-11.0)
[2016-07-29 21:44] VITALS: BP 152/65; RESP 20; O2SAT 98
[2016-07-29 21:57] LABS: CKMB 10.8 NG/ML (0.5-3.6)
[2016-07-29] MEDS ORDERED: NITROGLYCERIN 2% OINT 1 GM PACKET TOPICAL ONE (22:00)
[2016-07-29] MEDS ORDERED: SODIUM CHLORIDE 0.9% FLUSH 5 ML FLUSH IVF PRN (22:45)
--- NOTE | 2016-07-29 22:47 | HHI.HP ---
[facility] Service Family Medicine Primary Care Physician Duong Arguello MD Admission Diagnosis Diagnoses: International Travel<30 Days: No Contact w/Intl Traveler<30days: No Known Affected Area: No History of Present Illness Patient is a 80-year-old male with a PMH significant for multiple conditions including CAD with stents, pacemaker, and a GREASE AND TALLOW PUMPER shunt. Presented today due to chest pressure that has been present over the last 4 days. The chest pressure is localized in the substernal and associated with SOB. This chest pressure has no radiation to arm or neck and is not associated with exertion. Present continuously with no alleviating or aggravating factors. Was seen in [place] 2 days ago and was diagnosed with pneumonia and treated with Augmentin which patient did take. However due to continued chest pressure and SOB he presented today. Denies nausea or vomiting but does endorse a nonproductive cough, diaphoresis, decreased appetite. No fevers, diarrhea, dysuria, vision changes. Has been having headaches for the last week as well that come and go. The feel like his baseline headaches and he has a history of chronic headaches. Patient also reports that he has been experiencing presyncopal lightheadedness order last 2 days without any active loss of consciousness. He was admitted on 07/21/16 for near syncopal episode at which time carotid ultrasound and echocardiogram were unremarkable. He was discharge shortly after I recommend to follow up with his assistant center director. Troponins were unremarkable at that time as well. Review of Systems Constitutional: COMPLAINS OF: Diaphoretic episodes, Fatigue, Dizziness, Change in appetite, DENIES: Fever Eyes: DENIES: Blurred vision, Diplopia Respiratory: COMPLAINS OF: Cough, Shortness of breath, DENIES: Hemoptysis, Sputum production Cardiovascular: COMPLAINS OF: Chest pain, Dyspnea on Exertion, Orthopnea, DENIES: Syncope, Lower Extremity Edema Gastrointestinal: DENIES: Black stools, Bloody stools, Nausea, Vomiting Genitourinary: DENIES: Hematuria, Dysuria Musculoskeletal: COMPLAINS OF: Neck pain Neurologic: COMPLAINS OF: Headache Past Family Social History Past Medical History CAD s/p stent placement x3 --OK x2 Bradycardia s/p pacemaker placement - Pacemaker placed in [place] in 02/2016 - [employer] implantable cardioverter/defibrillator Diabetes Mellitus type 2 -insulin dependent Hyperlipidemia Hypertension Cerebral aneurysm Brain stem tumor - non-surgical 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 - GREASE AND TALLOW PUMPER shunt placement due to drainage of CSF issues - chronic headaches Chronic back pain - seen by pain management Nephrolithiasis Large lateral abdominal wall hernia Seizures x1 Cardiac arrest (2010) Past Surgical History GREASE AND TALLOW PUMPER Shunt placement - 2009 Nephrolithiasis with right lateral open removal of stone Cardiac catheterization with stent placement - last in 2004 Low back epidural injection - 2014 Pacemaker placed in 02/2016 Reported Medications Reported Meds & Active Scripts Active Nebulizer/Adult Mask (N/A) 1 Kit Kit 1 Kit .ROUTE DIRECTED Albuterol Neb (Albuterol Sulfate) 2.5 Mg/3 Ml Neb 2.5 Mg NEB Q4HR NEB While awake Ventolin Hfa 18 GM Inh (Albuterol Sulfate) 90 Mcg/Act Aer 2 Puff INH Q4-6H PRN Augmentin (Amoxicillin-Clavulanate) 500-125 mg Tab 500 Mg PO Q8H 10 Days Lancets 1 Mis Mis 1 Ea .ROUTE DIRECTED Lancets for Contour Glucometer - check blood glucose twice daily. Dispense: #200 lancets Blood Glucose Test Strips 1 Kaila Kaila 1 Ea .ROUTE DIRECTED Contour Test 100 Strips - check blood glucose twice daily. Dispense: #200 test strips Topiramate 50 Mg Tab 50 Mg PO BID Carvedilol 12.5 Mg Tab 12.5 Mg PO BID Reported Lantus Inj (Insulin Glargine) 1,000 Unit/10 Ml Vial 25 Units SQ HS Latanoprost Opth Drops (Latanoprost) 0.005% Drops 1 Drop EACH EYE HS Refrigerate until opened. Januvia (Sitagliptin Phosphate) 100 Mg Tab 100 Mg PO DAILY Finasteride 5 Mg Tab 5 Mg PO DAILY Do not crush. Isosorbide Mononitrate ER (Isosorbide Mononitrate) 30 Mg Trever 30 Mg PO DAILY Crestor (Rosuvastatin Calcium) 40 Mg Tab 40 Mg PO DAILY Hydrochlorothiazide 25 Mg Tab 25 Mg PO DAILY Plavix (Clopidogrel Bisulfate) 75 Mg Tab 75 Mg PO DAILY Carbamazepine 200 Mg Tab 200 Mg PO BID Lisinopril 40 Mg Tab 20 Mg PO DAILY Glucophage (Metformin HCl) 500 Mg Tab 1,000 Mg PO BIDPC With meals Amlodipine (Amlodipine Besylate) 5 Mg Tab 10 Mg PO DAILY Allergies: Coded Allergies: Morphine (Verified Allergy, Severe, "doctor stated i was unconscious and shaking", 07/29/16) ?SEIZURE Family History Father: healthy Mother: brain tumor - Siblings: sister with breast cancer at age 36 Social History 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 Tobacco: never Alcohol: never Illicit drug use: none Physical Exam Vital Signs Vital Signs Date Time Temp Pulse Resp B/P Pulse Ox O2 Delivery O2 Flow Rate FiO2 07/29/16 21:44 20 152/65 98 Nasal Cannula 3 07/29/16 21:41 20 97 Nasal Cannula 2 07/29/16 21:20 96 Nasal Cannula 3.00 07/29/16 21:18 22 95 Nasal Cannula 2 07/29/16 21:17 77 24 121/91 95 Nasal Cannula 3 07/29/16 20:52 78 24 95 Nasal Cannula 07/29/16 20:43 94 Room Air 07/29/16 19:51 97.9 78 20 188/89 94 Room Air Physical Exam GENERAL: This is an obese male in no apparent distress. SKIN: No rashes, ecchymoses or lesions. Cool and dry. EYES: Pupils equal round and reactive. Extraocular motions intact. No scleral icterus. No injection or drainage. ENT: Nose without bleeding, purulent drainage. Throat without erythema, tonsillar hypertrophy or exudate. Uvula midline. Airway patent. NECK: No lymphadenopathy. Supple, nontender, no meningeal signs. CARDIOVASCULAR: Regular rate and rhythm without murmurs, gallops, or rubs. RESPIRATORY: Clear to auscultation. Breath sounds equal bilaterally. No wheezes , rales, or rhonchi. GASTROINTESTINAL: Abdomen soft, non-tender. No hepato-splenomegaly, or palpable masses. No guarding. MUSCULOSKELETAL: Extremities without clubbing, cyanosis, or edema. No calf tenderness. NEUROLOGICAL: Awake and alert. Motor and sensory grossly within normal limits. Normal speech. Laboratory Laboratory Tests Test 07/29/16 20:51 White Blood Count 5.6 Red Blood Count 4.30 Hemoglobin 13.0 Hematocrit 38.6 Mean Corpuscular Volume 89.7 Mean Corpuscular Hemoglobin 30.1 Mean Corpuscular Hemoglobin 33.6 Concent Red Cell Distribution Width 14.8 Platelet Count 205 Mean Platelet Volume 8.8 Neutrophils (%) (Auto) 62.7 Lymphocytes (%) (Auto) 18.9 Monocytes (%) (Auto) 10.0 Eosinophils (%) (Auto) 7.4 Basophils (%) (Auto) 1.0 Neutrophils # (Auto) 3.5 Lymphocytes # (Auto) 1.1 Monocytes # (Auto) 0.6 Eosinophils # (Auto) 0.4 Basophils # (Auto) 0.1 CBC Comment DIFF FINAL Differential Comment Activated Partial 26.6 Thromboplast Time Sodium Level 140 Potassium Level 4.2 Chloride Level 106 Carbon Dioxide Level 24.8 Anion Gap 9 Blood Urea Nitrogen 25 Creatinine 1.45 Estimat Glomerular Filtration 47 Rate Random Glucose 119 Lactic Acid Level 1.5 Calcium Level 8.3 Total Creatine Kinase 739 Creatine Kinase MB 10.8 Creatine Kinase MB % 1.5 Troponin I 0.03 B-Type Natriuretic Peptide 35 Date/Time Procedure Status Source Growth 07/29/16 20:56 Aerobic Blood Culture Received Blood Peripheral Pending 07/29/16 20:56 Anaerobic Blood Culture Received Blood Peripheral Pending Result Diagram: 07/29/16205007/29/162050 Imaging Last Impressions Chest X-Ray 07/29/161958 Signed Impressions: Service Date/Time: Friday, July 29, 2016 20:15 - CONCLUSION: 1. Minimal basilar atelectasis or scarring. Mild cardiomegaly. Milan Ash MD Assessment and Plan Assessment and Plan 80-year-old male with a significant cardiac history including multiple stents, pacemaker. Admitted for chest pain and suspected pneumonia. Code Status Full Discussed Condition With Dr. Nuñez Problem List: (1) Chest pain Status: Acute Plan: 4 day history of chest pressure and SOB with no aggravating or alleviating factors. Significant cardiac history with stents and a pacemaker present. BNP unremarkable. -EKG shows no pacing spikes but there is a slightly prolonged MO interval consistent with first-degree AV block. Right bundle branch present but this is old. No ST changes. Overall unremarkable -Trend EKG and troponins -Echo from 07/22/2014 showed EF of 50-55%. -Cardiac telemetry Medications: * Aspirin 162 mg daily * Atorvastatin 80 mg daily * Lisinopril 20 mg daily * Imdur 30 mg daily * HCTZ 25 mg daily * Carvedilol 12.5 mg BID * Amlodipine 10 mg (2) Pneumonia Status: Acute Plan: Reports a prior diagnosis of pneumonia that was treated with Augmentin. Continues to be symptomatic with chest pressure, SOB, nonproductive cough. No fevers present. Admission vital signs unremarkable. -No leukocytosis or lactic acidosis -UA ordered but not yet obtained -Chest x-ray is not quite indicative of pneumonia however the x-ray performed today does show improvement in comparison to the x-ray 2 days prior while being on antibiotics. Imaging: * CXR: Minimal basilar atelectasis or scarring. Mild cardiomegaly Medications: * Rocephin 1g 07/29- * Azithromycin 500mg 07/29- * Prednisone 40 mg daily * Albuterol and Duonebs * Mucinex (3) Pre-syncope Status: Acute Plan: Continues to report symptoms of presyncope without LOC. Was admitted on 07/21/2016 which had a negative evaluation for near syncope. -Orthostatics ordered -UA ordered to evaluate for other etiologies (4) Cephalgia Status: Chronic Plan: Reporting continued symptoms of chronic headaches that are similar to his baseline headaches. No meningeal signs on evaluation. Low suspicion for meningitis or complication with GREASE AND TALLOW PUMPER shunt. -Continue to monitor and manage pain with medication and supportive care (5) Diabetes mellitus type 2, insulin dependent Status: Chronic Plan: Patient currently on oral and insulin medications. WIll decrease home long-acting insulin initially due to history of decreased appetite. -Accu-Cheks of low-dose sliding scale -Levemir 10 units bid, will likely need to increase as patient's home dose is Lantus 45 units (6) Nutrition, metabolism, and development symptoms Status: Acute Plan: Diet: Diabetic Fluids: NS at 100 Electrolytes: Unremarkable DVT prophylaxis: Lovenox GI prophylaxis: Protonix Chronic conditions: * BPH: Continue home finasteride * Seizures: Carbamazepine and Topamax * HTN/HLD: See management plan under chest pain Jazzy Costa MD R2 Jul 29, 2016 22:47
[2016-07-29] MEDS ORDERED: AZITHROMYCIN INJ 500 MG in SODIUM CHLOR 0.9% 250 ML INJ 250 ML IV ONE (23:00)
[2016-07-29] MEDS ORDERED: PILL SPLITTER OTHER PRN (23:30)
[2016-07-29] MEDS ORDERED: ENALAPRILAT 1.25 MG/ML VIAL IV PRN (23:45)
[2016-07-29] MEDS ORDERED: ONDANSETRON HCL 4 MG/2 ML VIAL IVP PRN (23:45)
[2016-07-29] MEDS ORDERED: NALOXONE HCL 0.4 MG/ML AMP IV PRN (23:45)
[2016-07-30] VITALS (24 sets, daily range): BP systolic 132–168; BP diastolic 70–91; PULSE 59–82; RESP 18–24; TEMP 97.6–98.7; O2SAT 93–98
[2016-07-30] MEDS ORDERED: DEXTROSE 50% IN WATER 50 ML VIAL(D50) IV PUSH PRN
[2016-07-30] MEDS ORDERED: HYDROmorphone HCL PF 1 MG/ML VIAL IV PUSH ONE
[2016-07-30] MEDS ORDERED: NALOXONE HCL 0.4 MG/ML AMP IV PRN
[2016-07-30] MEDS ORDERED: GLUCAGON 1 MG/ML VIAL OTHER PRN
[2016-07-30] MEDS: ACETAMINOPHEN 325 MG TAB PO PRN ×2 (00:25→10:33)
[2016-07-30] MEDS: RESP: ALBUTEROL 2.5 MG/IPRATROPIUM 0.5 MG NEB (SCH) INH ×7 (00:35→23:58)
[2016-07-30] MEDS: ENOXAPARIN SODIUM 40 MG/0.4 ML SYRINGE SQ SCH ×2 (00:37→22:34)
[2016-07-30] MEDS ORDERED: LORazepam 2 MG/ML VIAL IV PUSH PRN (00:45)
[2016-07-30] MEDS: guaiFENesin E.R. 600 MG TAB PO SCH ×3 (01:03→20:32)
[2016-07-30] MEDS: SODIUM CHLOR 0.9% 1000 ML INJ 1,000 ML IV SCH ×3 (02:53→20:31)
[2016-07-30] MEDS: ACETAMINOPHEN/HYDROcodone 325 MG/10 MG TAB PO PRN ×3 (03:25→20:32)
[2016-07-30] MEDS: INSULIN ASPART SUPPLEMENTAL SCALE SQ SCH ×4 (04:19→20:42)
[2016-07-30] MEDS: HYDROmorphone HCL PF 1 MG/ML VIAL IV PRN ×3 (05:05→20:31)
[2016-07-30] MEDS: SODIUM CHLORIDE 0.9% FLUSH 5 ML FLUSH FLUSH SCH ×2 (09:00→20:30)
[2016-07-30] MEDS ORDERED: SODIUM CHLORIDE 0.9% FLUSH 5 ML FLUSH IVF SCH (09:00)
[2016-07-30] MEDS: TOPIRAMATE 25 MG TAB PO SCH ×2 (09:00→20:32)
[2016-07-30] MEDS ORDERED: ATORVASTATIN 80 MG TAB PO SCH (09:00)
[2016-07-30] MEDS: carBAMazepine 200 MG TAB PO SCH ×2 (09:00→20:32)
[2016-07-30] MEDS: INSULIN DETEMIR 100 UNITS/ML VIAL SQ SCH ×2 (09:13→20:30)
[2016-07-30] MEDS: ACETAMINOPHEN/HYDROcodone 325 MG/5 MG TAB PO PRN (09:13)
[2016-07-30] MEDS: amLODIPine BESYLATE 5 MG TAB PO SCH (09:14)
[2016-07-30] MEDS: HYDROCHLOROTHIAZIDE 25 MG TAB PO SCH (09:14)
[2016-07-30] MEDS: PANTOPRAZOLE SOD 40 MG DELAYED RELEASE TAB PO SCH (09:14)
[2016-07-30] MEDS: LISINOPRIL 20 MG TAB PO SCH (09:14)
[2016-07-30] MEDS: FINASTERIDE 5 MG TAB PO SCH (09:14)
[2016-07-30] MEDS: ASPIRIN 81 MG CHEW TAB PO SCH (09:14)
[2016-07-30] MEDS: ISOSORBIDE MONONITRATE 30 MG TAB PO SCH (09:14)
[2016-07-30] MEDS: CARVEDILOL 12.5 MG TAB PO SCH ×2 (09:14→20:32)
[2016-07-30] MEDS: predniSONE 20 MG TAB PO SCH (09:14)
[2016-07-30 11:02] LABS: CKMB 9.3 NG/ML (0.5-3.6)
--- NOTE | 2016-07-30 11:17 | HHI.HP ---
[facility] Service Family Medicine Primary Care Physician Duong Arguello MD Admission Diagnosis Diagnoses: (1) Chest pain Diagnosis: Principal (2) Pneumonia Diagnosis: Principal (3) Pre-syncope Diagnosis: Principal (4) Cephalgia Diagnosis: Principal (5) Diabetes mellitus type 2, insulin dependent Diagnosis: Principal (6) Nutrition, metabolism, and development symptoms Diagnosis: Principal International Travel<30 Days: No Contact w/Intl Traveler<30days: No Known Affected Area: No History of Present Illness Mr Yousif is a 80-year-old male with a PMH significant for multiple conditions including CAD with stents, pacemaker, and a SLAB POLISHER shunt placed 6 years ago because of increased pressure with a still present benign brain tumor. Presented due to chest pressure that has been present over the last 4 days prior to admission. The chest pressure is localized in the substernal and associated with SOB. This chest pressure has no radiation to arm or neck and is not associated with exertion. Present continuously with no alleviating or aggravating factors but better today. Was [place] in [place] 2 days ago and was diagnosed with pneumonia and treated with Augmentin which patient did take. However due to continued chest pressure and SOB plus headaches he presented here and was admitted. Denies nausea or vomiting but does endorse a nonproductive cough, diaphoresis, decreased appetite. No fevers, diarrhea, dysuria, vision changes. Has been having headaches for the last week as well that come and go. The feel like his baseline headaches and he has a history of chronic headaches. He has severe unrelenting headaches which improved after his shunt was placed but now he feels like these are the same headaches that he had prior to the shunt placement. He says they have been increasing in frequency and severity over the past few months. He has not had an MRI because of his pacemaker and he has not had his shunt checked in almost 2 years. Only dilaudid helps his pain. Patient also reports that he has been experiencing presyncopal lightheadedness over the last 2 days without any active loss of consciousness. He was admitted on 07/21/16 for near syncopal episode at which time carotid ultrasound and echocardiogram were unremarkable. 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 Troponins were unremarkable at that time as well. His troponins have been unremarkable, he reports almost a panic attack at 4 am this am otherwise he feels better with his SOB and chest pain. His headaches are now his main problem. Review of Systems Respiratory: COMPLAINS OF: Shortness of breath, DENIES: Hemoptysis Cardiovascular: COMPLAINS OF: Chest pain Neurologic: COMPLAINS OF: Headache, DENIES: Localized weakness, Seizures, Tremor Other Constitutional: COMPLAINS OF: Diaphoretic episodes, Fatigue, Dizziness, Change in appetite, DENIES: Fever Eyes: DENIES: Blurred vision, Diplopia Respiratory: COMPLAINS OF: Cough, Shortness of breath, DENIES: Hemoptysis, Sputum production Cardiovascular: COMPLAINS OF: Chest pain, Dyspnea on Exertion, Orthopnea, DENIES: Syncope, Lower Extremity Edema Gastrointestinal: DENIES: Black stools, Bloody stools, Nausea, Vomiting Genitourinary: DENIES: Hematuria, Dysuria Musculoskeletal: COMPLAINS OF: Neck pain Neurologic: COMPLAINS OF: Headache Past Family Social History Past Medical History CAD s/p stent placement x3 --[place] x2 Bradycardia s/p pacemaker placement - Pacemaker placed in [place] in 02/2016 - [employer] implantable cardioverter/defibrillator Diabetes Mellitus type 2 -insulin dependent Hyperlipidemia Hypertension Cerebral aneurysm Brain stem tumor - non-surgical 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 - SLAB POLISHER shunt placement due to drainage of CSF issues - chronic headaches but much worse and more frequent now Chronic back pain - seen by pain management Nephrolithiasis Large lateral abdominal wall hernia Seizures x1 Cardiac arrest (2010) Past Surgical History SLAB POLISHER Shunt placement - 2009 Nephrolithiasis with right lateral open removal of stone Cardiac catheterization with stent placement - last in 2004 Low back epidural injection - 2014 Pacemaker placed in 02/2016 Allergies: Coded Allergies: Morphine (Verified Allergy, Severe, "doctor stated i was unconscious and shaking", 07/29/16) ?SEIZURE Family History Father: healthy Mother: brain tumor - Siblings: sister with breast cancer at age 36 Social History 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 Tobacco: never Alcohol: never Illicit drug use: none Physical Exam Vital Signs Vital Signs Date Time Temp Pulse Resp B/P Pulse Ox O2 Delivery O2 Flow Rate FiO2 07/30/16 10:04 68 07/30/16 09:31 97.6 71 20 158/88 96 07/30/16 09:31 71 07/30/16 07:58 98 21 07/30/16 07:30 80 07/30/16 06:00 59 07/30/16 05:00 74 07/30/16 04:00 80 07/30/16 03:00 98.5 78 24 168/91 98 07/30/16 00:45 68 20 148/79 98 Aerosol Mask 07/29/16 21:44 20 152/65 98 Nasal Cannula 3 07/29/16 21:41 20 97 Nasal Cannula 2 07/29/16 21:20 96 Nasal Cannula 3.00 07/29/16 21:18 22 95 Nasal Cannula 2 07/29/16 21:17 77 24 121/91 95 Nasal Cannula 3 07/29/16 20:52 78 24 95 Nasal Cannula 07/29/16 20:43 94 Room Air 07/29/16 19:51 97.9 78 20 188/89 94 Room Air Physical Exam GENERAL: This is an obese male in no apparent distress except for current severe headache. SKIN: No rashes, ecchymoses or lesions. Cool and dry. EYES: Pupils equal round and reactive. Extraocular motions intact. No scleral icterus. No injection or drainage. ENT: Nose without bleeding, purulent drainage. Airway patent. No temporal or tenderness of head on palpation NECK: No lymphadenopathy. Supple, nontender, no meningeal signs. CARDIOVASCULAR: Regular rate and rhythm without murmurs, gallops, or rubs. RESPIRATORY: Clear to auscultation. Breath sounds equal bilaterally. No wheezes , rales, or rhonchi. GASTROINTESTINAL: Abdomen soft, non-tender. No hepato-splenomegaly, or palpable masses. No guarding. MUSCULOSKELETAL: Extremities without clubbing, cyanosis, or edema. No calf tenderness. NEUROLOGICAL: Awake and alert. Motor and sensory grossly within normal limits. Normal speech. Laboratory Laboratory Tests Test 07/29/16 07/30/16 07/30/16 20:51 02:48 10:16 White Blood Count 5.6 Red Blood Count 4.30 Hemoglobin 13.0 Hematocrit 38.6 Mean Corpuscular Volume 89.7 Mean Corpuscular Hemoglobin 30.1 Mean Corpuscular Hemoglobin 33.6 Concent Red Cell Distribution Width 14.8 Platelet Count 205 Mean Platelet Volume 8.8 Neutrophils (%) (Auto) 62.7 Lymphocytes (%) (Auto) 18.9 Monocytes (%) (Auto) 10.0 Eosinophils (%) (Auto) 7.4 Basophils (%) (Auto) 1.0 Neutrophils # (Auto) 3.5 Lymphocytes # (Auto) 1.1 Monocytes # (Auto) 0.6 Eosinophils # (Auto) 0.4 Basophils # (Auto) 0.1 CBC Comment DIFF FINAL Differential Comment Activated Partial 26.6 Thromboplast Time Sodium Level 140 Potassium Level 4.2 Chloride Level 106 Carbon Dioxide Level 24.8 Anion Gap 9 Blood Urea Nitrogen 25 Creatinine 1.45 Estimat Glomerular Filtration 47 Rate Random Glucose 119 Lactic Acid Level 1.5 Calcium Level 8.3 Total Creatine Kinase 739 668 606 Creatine Kinase MB 10.8 10.0 Creatine Kinase MB % 1.5 1.5 Troponin I 0.03 0.03 0.02 B-Type Natriuretic Peptide 35 Date/Time Procedure Status Source Growth 07/29/16 20:56 Aerobic Blood Culture Received Blood Peripheral Pending 07/29/16 20:56 Anaerobic Blood Culture Received Blood Peripheral Pending Result Diagram: 07/29/16205007/29/162050 Imaging Last Impressions Chest X-Ray 07/29/161958 Signed Impressions: Service Date/Time: Friday, July 29, 2016 20:15 - CONCLUSION: 1. Minimal basilar atelectasis or scarring. Mild cardiomegaly. Milan Ash MD Assessment and Plan Assessment and Plan 80-year-old male with a significant cardiac history including multiple stents, pacemaker. Admitted for chest pain and suspected pneumonia. Problem List: (1) Chest pain Status: Acute Plan: 4 day history of chest pressure and SOB with no aggravating or alleviating factors. Significant cardiac history with stents and a pacemaker present. BNP unremarkable. -EKG shows no pacing spikes but there is a slightly prolonged CO interval consistent with first-degree AV block. Right bundle branch present but this is old. No ST changes. Overall unremarkable -Trend EKG and troponins -Echo from 07/22/2014 showed EF of 50-55%. -Cardiac telemetry Medications: * Aspirin 162 mg daily * Atorvastatin 80 mg daily, will hold for a few days as his CPKs are elevated now * Lisinopril 20 mg daily * Imdur 30 mg daily * HCTZ 25 mg daily * Carvedilol 12.5 mg BID * Amlodipine 10 mg (2) Pneumonia Status: Acute Plan: Reports a prior diagnosis of pneumonia that was treated with Augmentin. Continues to be symptomatic with chest pressure, SOB, nonproductive cough. No fevers present. Admission vital signs unremarkable. -No leukocytosis or lactic acidosis -UA ordered but not yet obtained -Chest x-ray is not quite indicative of pneumonia however the x-ray performed today does show improvement in comparison to the x-ray 2 days prior while being on antibiotics. Imaging: * CXR: Minimal basilar atelectasis or scarring. Mild cardiomegaly Medications: * Rocephin 1g 07/29- * Azithromycin 500mg 07/29- * Prednisone 40 mg daily, will give for a few days. he has no history of asthma or COPD so should hopefully not need much prednision * Albuterol and Duonebs * Mucinex (3) Pre-syncope Status: Acute Plan: Continues to report symptoms of presyncope without LOC. Was admitted on 07/21/2016 which had a negative evaluation for near syncope. -Orthostatics ordered -UA ordered to evaluate for other etiologies (4) Cephalgia Status: Chronic Plan: Reporting continued symptoms of chronic headaches that are similar to his baseline headaches. No meningeal signs on evaluation. Low suspicion for meningitis. Could have complication with SLAB POLISHER shunt. Will ask Neurology if they can help evaluate his shunt as he is getting severe and increasing headaches like before he had his shunt placed -Continue to monitor and manage pain with medication and supportive care (5) Diabetes mellitus type 2, insulin dependent Status: Chronic Plan: Patient currently on oral and insulin medications. Will decrease home long-acting insulin initially due to history of decreased appetite. -Accu-Cheks of low-dose sliding scale -Levemir 10 units bid, will likely need to increase as patient's home dose is Lantus 45 units (6) Nutrition, metabolism, and development symptoms Status: Acute Plan: Diet: Diabetic Fluids: NS at 100 Electrolytes: Unremarkable DVT prophylaxis: Lovenox GI prophylaxis: Protonix Chronic conditions: * BPH: Continue home finasteride * Seizures: Carbamazepine and Topamax * HTN/HLD: See management plan under chest pain (7) Increased CPK level Status: Acute Plan: He may have some rhabdo but is getting iv fluids. this could be from his cholesterol meds so will hold them temporarily. (8) Anxiety Status: Chronic Plan: Per pts girlfriend, he has anxiety, near panic attacks at times. unsure if this is contributing to his current sxs but can address if he develops any more problems during this hospitalization Problem Qualifiers (1) Chest pain: Qualified Code: R07.89 - Other chest pain (2) Pneumonia: Qualified Code: J18.1 - Pneumonia of lower lobe due to infectious organism, unspecified laterality (3) Cephalgia: Qualified Code: R51 - Nonintractable episodic headache, unspecified headache type Radha Steele MD Jul 30, 2016 11:17
[2016-07-30] MEDS: cefTRIAXone INJ 1,000 MG in SODIUM CHLORIDE 0.9% INJ 100 ML IV SCH (20:30)
[2016-07-30] MEDS: AZITHROMYCIN 250 MG TAB PO SCH (20:32)
[2016-07-31] VITALS (10 sets, daily range): BP systolic 132–180; BP diastolic 70–84; PULSE 64–79; RESP 17–20; TEMP 96.5–97.7; O2SAT 92–97
[2016-07-31] MEDS: ACETAMINOPHEN/HYDROcodone 325 MG/10 MG TAB PO PRN ×2 (03:37→09:44)
[2016-07-31] MEDS: RESP: ALBUTEROL 2.5 MG/IPRATROPIUM 0.5 MG NEB (SCH) INH ×5 (04:10→21:02)
[2016-07-31] MEDS: SODIUM CHLOR 0.9% 1000 ML INJ 1,000 ML IV SCH (05:37)
[2016-07-31] MEDS: INSULIN ASPART SUPPLEMENTAL SCALE SQ SCH ×4 (05:42→21:21)
[2016-07-31 06:08] LABS: HEMATOCRIT 33.7 % (39.0-51.0); MEAN CELL VOLUME 88.1 FL (80.0-100.0); MEAN CORPUSCULAR HEMOGLOBIN 29.5 PG (27.0-34.0); MEAN CORPUSCULAR HGB CONC 33.5 % (32.0-36.0); PLATELET COUNT 183 TH/MM3 (150-450); RED BLOOD COUNT 3.83 MIL/MM3 (4.50-5.90); RED CELL DISTRIBUTION WIDTH 14.4 % (11.6-17.2); REVIEW FLAG FINAL; WHITE BLOOD COUNT 6.3 TH/MM3 (4.0-11.0)
[2016-07-31 06:16] LABS: BICARBONATE 25.5 MEQ/L (21.0-32.0); POTASSIUM 3.6 MEQ/L (3.5-5.1)
[2016-07-31] MEDS: TOPIRAMATE 25 MG TAB PO SCH ×2 (08:24→21:22)
[2016-07-31] MEDS: HYDROCHLOROTHIAZIDE 25 MG TAB PO SCH (08:24)
[2016-07-31] MEDS: predniSONE 20 MG TAB PO SCH (08:24)
[2016-07-31] MEDS: ASPIRIN 81 MG CHEW TAB PO SCH (08:24)
[2016-07-31] MEDS: carBAMazepine 200 MG TAB PO SCH ×2 (08:24→21:22)
[2016-07-31] MEDS: LISINOPRIL 20 MG TAB PO SCH (08:24)
[2016-07-31] MEDS: guaiFENesin E.R. 600 MG TAB PO SCH ×2 (08:24→21:22)
[2016-07-31] MEDS: FINASTERIDE 5 MG TAB PO SCH (08:24)
[2016-07-31] MEDS: PANTOPRAZOLE SOD 40 MG DELAYED RELEASE TAB PO SCH (08:24)
[2016-07-31] MEDS: CARVEDILOL 12.5 MG TAB PO SCH ×2 (08:24→21:22)
[2016-07-31] MEDS: ISOSORBIDE MONONITRATE 30 MG TAB PO SCH (08:24)
[2016-07-31] MEDS: amLODIPine BESYLATE 5 MG TAB PO SCH (08:24)
[2016-07-31] MEDS: SODIUM CHLORIDE 0.9% FLUSH 5 ML FLUSH FLUSH SCH (08:25)
[2016-07-31] MEDS: INSULIN DETEMIR 100 UNITS/ML VIAL SQ SCH ×2 (08:25→21:21)
--- NOTE | 2016-07-31 08:50 | HHI.FPPN ---
Subjective Remarks Patient seen and examined this morning. Afebrile vital signs stable. Patient reports that last night he had some episodes of severe anxiety. He also continues to complain of severe headache, explained to him that we are concerned that the AV shunt may not be working appropriately, and a consult to neurology has been placed. Explained to the patient there were waiting on neurology's recommendations. Patient is requesting stronger pain medication saying that his headache is nearly intolerable. Have agreed to slightly increase the breakthrough Dilaudid dose. (Kaleb Porter MD R2) Objective Vitals Vital Signs Date Time Temp Pulse Resp B/P Pulse Ox O2 Delivery O2 Flow Rate FiO2 07/31/16 08:00 97 21 07/31/16 04:33 20 07/31/16 04:13 92 21 07/31/16 03:38 96.7 64 20 132/79 94 07/31/16 01:00 65 07/31/16 00:02 94 07/31/16 00:00 67 07/30/16 23:00 65 07/30/16 23:00 98.7 69 18 147/82 93 07/30/16 22:00 77 07/30/16 21:00 77 07/30/16 20:00 76 07/30/16 19:00 75 07/30/16 19:00 98.5 82 18 156/80 93 07/30/16 18:05 74 07/30/16 17:38 98.0 78 18 132/74 98 07/30/16 17:01 72 07/30/16 16:43 68 07/30/16 15:14 94 21 07/30/16 14:44 68 07/30/16 13:23 62 07/30/16 12:32 64 07/30/16 11:43 98.0 64 18 150/70 96 07/30/16 11:04 62 07/30/16 10:04 68 07/30/16 09:31 97.6 71 20 158/88 96 07/30/16 09:31 71 I/O 07/30/16 07/30/16 07/30/16 07/31/16 07/31/16 07/31/16 07:00 15:00 23:00 07:00 15:00 23:00 Intake Total 664 ml 1840 ml 440 ml Output Total 1600 ml Balance 664 ml 240 ml 440 ml Intake Oral 480 ml 840 ml 240 ml IV Total 184 ml 1000 ml 200 ml Output Urine Total 1600 ml # Voids 1 3 2 # Bowel Movements 0 (Kaleb Porter MD R2) Result Diagram: 07/31/1652307/31/16523 Objective Remarks GENERAL: This is an obese male in no apparent distress except for current severe headache. SKIN: No rashes, ecchymoses or lesions. Cool and dry. EYES: Pupils equal round and reactive. Extraocular motions intact. No scleral icterus. No injection or drainage. ENT: Nose without bleeding, purulent drainage. Airway patent. No temporal or tenderness of head on palpation NECK: No lymphadenopathy. Supple, nontender, no meningeal signs. CARDIOVASCULAR: Regular rate and rhythm without murmurs, gallops, or rubs. RESPIRATORY: Clear to auscultation. Breath sounds equal bilaterally. No wheezes , rales, or rhonchi. GASTROINTESTINAL: Abdomen soft, non-tender. No hepato-splenomegaly, or palpable masses. No guarding. MUSCULOSKELETAL: Extremities without clubbing, cyanosis, or edema. No calf tenderness. NEUROLOGICAL: Awake and alert. Motor and sensory grossly within normal limits. Normal speech. Medications and IVs Current Medications Medications (Trade) Dose Ordered Sig/Michael Route Start Time Stop Time Status Last Admin (Norvasc) 10 mg DAILY PO 07/30/16 09:00 07/31/16 08:24 (TEGretol) 200 mg BID PO 07/30/16 09:00 07/31/16 08:24 (Coreg) 12.5 mg BID PO 07/30/16 09:00 07/31/16 08:24 (Proscar) 5 mg DAILY PO 07/30/16 09:00 07/31/16 08:24 (Hydrodiuril) 25 mg DAILY PO 07/30/16 09:00 07/31/16 08:24 (Imdur) 30 mg DAILY PO 07/30/16 09:00 07/31/16 08:24 (Prinivil) 20 mg DAILY PO 07/30/16 09:00 07/31/16 08:24 (Topamax) 50 mg BID PO 07/30/16 09:00 07/31/16 08:24 (Lipitor) 80 mg DAILY PO 07/30/16 09:00 Hold 07/30/16 09:14 (NS Flush) 2 ml UNSCH PRN FLUSH 07/29/16 23:45 (NS Flush) 2 ml BID FLUSH 07/30/16 09:00 07/31/16 08:25 (Zofran Inj) 4 mg Q6H PRN IVP 07/29/16 23:45 (Lovenox Inj) 40 mg Q24H SQ 07/29/16 23:45 07/30/16 22:34 (Vasotec Inj) 1.25 mg Q6H PRN IV 07/29/16 23:45 (D50w (Vial) Inj) 25 ml UNSCH PRN IV PUSH 07/30/16 00:00 (Glucagon Inj) 1 mg UNSCH PRN OTHER 07/30/16 00:00 (Tylenol) 650 mg Q6H PRN PO 07/30/16 00:00 07/30/16 10:33 (Kiln 5-325 Mg) 1 tab Q4H PRN PO 07/30/16 00:00 07/30/16 09:13 (Kiln 10-325 Mg) 1 tab Q4H PRN PO 07/30/16 00:00 07/31/16 03:37 Naloxone HCl 0.4 mg 0.4 mg UNSCH PRN IV 07/30/16 00:00 (NS 1000 ml Inj) 1,000 ml @ 100 mls/hr Q10H IV 07/29/16 23:51 07/30/16 20:31 Prednisone 40 mg 40 mg DAILY PO 07/30/16 09:00 07/31/16 08:24 (Rocephin Inj/NS Inj) 100 ml @ 200 mls/hr Q24H IV 07/30/16 21:00 07/30/16 20:30 (Zithromax) 500 mg Q24H PO 07/30/16 21:00 08/03/16 20:59 07/30/16 20:32 (Mucinex Er) 600 mg BID PO 07/30/16 00:00 07/31/16 08:24 (Levemir Inj) 10 units BID SQ 07/30/16 09:00 07/30/16 20:30 (Aspirin Chew) 162 mg DAILY PO 07/30/16 09:00 1/22/17 08:24 (Protonix) 40 mg DAILY PO 07/30/16 09:00 07/31/16 08:24 (Dilaudid Pf Inj) 1 mg Q4H PRN IV PUSH 07/31/16 09:00 (Ativan) 0.5 mg Q8H PRN PO 07/31/16 09:00 (Kaleb Porter MD R2) A/P Assessment and Plan 80-year-old male with a significant cardiac history including multiple stents, pacemaker. Admitted for chest pain and suspected pneumonia. Discharge Planning To be determined following neurology recommendations (Kaleb Porter MD R2) Attending Attestation Patient seen and examined. Case reviewed and discussed with the resident team. Agree with plan of care as discussed with me and documented in the resident note. Appreciate help Neurology and Neurosurgery (Radha Steele MD) Problem List: (1) Chest pain Status: Acute Plan: 4 day history of chest pressure and SOB with no aggravating or alleviating factors. Significant cardiac history with stents and a pacemaker present. BNP unremarkable. -EKG shows no pacing spikes but there is a slightly prolonged IA interval consistent with first-degree AV block. Right bundle branch present but this is old. No ST changes. Overall unremarkable -Trend EKG wnl -Trended troponin: 0.03, 0.03, 0.02 -Echo from 07/22/2014 showed EF of 50-55%. -Cardiac telemetry Medications: * Aspirin 162 mg daily * Atorvastatin 80 mg daily, will hold for a few days as his CPKs are elevated now * Lisinopril 20 mg daily * Imdur 30 mg daily * HCTZ 25 mg daily * Carvedilol 12.5 mg BID * Amlodipine 10 mg (2) Pneumonia Status: Acute Plan: Reports a prior diagnosis of pneumonia that was treated with Augmentin. Continues to be symptomatic with chest pressure, SOB, nonproductive cough. No fevers present. Admission vital signs unremarkable. -No leukocytosis or lactic acidosis -UA ordered but not yet obtained -Chest x-ray is not quite indicative of pneumonia however the x-ray performed today does show improvement in comparison to the x-ray 2 days prior while being on antibiotics. Imaging: * CXR: Minimal basilar atelectasis or scarring. Mild cardiomegaly Medications: * Rocephin 1g 07/29- * Azithromycin 500mg 07/29- * Prednisone 40 mg daily, will give for a few days. he has no history of asthma or COPD so should hopefully not need much prednision * Albuterol and Duonebs * Mucinex (3) Pre-syncope Status: Acute Plan: Continues to report symptoms of presyncope without LOC. Was admitted on 07/21/2016 which had a negative evaluation for near syncope. -Orthostatics ordered -UA ordered to evaluate for other etiologies (4) Cephalgia Status: Chronic Plan: Reporting continued symptoms of chronic headaches that are similar to his baseline headaches. No meningeal signs on evaluation. Low suspicion for meningitis. Could have complication with CIGAR PATCHER shunt. Will ask Neurology if they can help evaluate his shunt as he is getting severe and increasing headaches like before he had his shunt placed -Neurology consulted recommendation appreciated -Pain control: Kiln 5/325mg pain 1-5 Kiln 10/325mg pain 6-10 Dilaudid 1mg breakthrough pain (5) Diabetes mellitus type 2, insulin dependent Status: Chronic Plan: Patient currently on oral and insulin medications. Will decrease home long-acting insulin initially due to history of decreased appetite. -Accu-Cheks of low-dose sliding scale -Levemir 10 units bid, will likely need to increase as patient's home dose is Lantus 45 units (6) Increased CPK level Status: Acute Plan: He may have some rhabdo but is getting iv fluids. this could be from his cholesterol meds so will hold them temporarily. (7) Anxiety Status: Chronic Plan: Report history of anxiety. Patient reports several panic attacks during the night - Ativan 1mg for anxiety (8) Nutrition, metabolism, and development symptoms Status: Acute Plan: Diet: Diabetic Fluids: NS at 100 Electrolytes: Unremarkable DVT prophylaxis: Lovenox GI prophylaxis: Protonix Chronic conditions: * BPH: Continue home finasteride * Seizures: Carbamazepine and Topamax * HTN/HLD: See management plan under chest pain (Kaleb Porter MD R2) Problem Qualifiers (1) Chest pain: Qualified Code: R07.89 - Other chest pain (2) Pneumonia: Qualified Code: J18.1 - Pneumonia of lower lobe due to infectious organism, unspecified laterality (3) Cephalgia: Qualified Code: R51 - Nonintractable episodic headache, unspecified headache type Kaleb Porter MD R2 Jul 31, 2016 08:50 Radha Steele MD Aug 03, 2016 14:23
[2016-07-31] MEDS: HYDROmorphone HCL PF 1 MG/ML VIAL IV PUSH PRN ×2 (09:44→18:30)
--- NOTE | 2016-07-31 13:11 | PD.CONS ---
HPI Service Neurosurgery Consult Requested By Medicine Reason for Consult shunt clearance, headache Primary Care Physician Duong Arguello MD History of Present Illness 80 yr old gentleman presented with exacerbation of headache after coughing. He was exposed to allergens and has had a dry cough for a week. It is non productive. 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 He was shunted [address] Andersen and the last CT and shunt series from 2014 are intact. He is at his neurologic baseline but his neck and frontal headaches are severe, 04/18. Review of Systems Constitutional: DENIES: Diaphoretic episodes, Fatigue, Fever, Weight gain, Weight loss, Chills, Dizziness, Change in appetite, Night Sweats Endocrine: DENIES: Heat/cold intolerance, Polydipsia, Polyuria, Polyphagia Ears, nose, mouth, throat: DENIES: Tinnitus, Hearing loss, Vertigo, Nasal discharge, Oral lesions, Throat pain, Hoarseness, Ear Pain, Running Nose, Epistaxis, Sinus Pain, Toothache, Odynophagia Respiratory: COMPLAINS OF: Cough, DENIES: Apneas, Snoring, Wheezing, Hemoptysis, Sputum production, Shortness of breath Cardiovascular: COMPLAINS OF: Dyspnea on Exertion, DENIES: Chest pain, Palpitations, Syncope, PND, Lower Extremity Edema, Orthopnea, Claudication Gastrointestinal: DENIES: Abdominal pain, Black stools, Bloody stools, Constipation, Diarrhea, Nausea, Vomiting, Difficulty Swallowing, Anorexia Genitourinary: DENIES: Sexual dysfunction, Urinary frequency, Urinary incontinence, Urgency, Hematuria, Dysuria, Nocturia, Penile Discharge, Testicular Pain, Testicular Swelling Musculoskeletal: COMPLAINS OF: Neck pain Integumentary: DENIES: Abnormal pigmentation, Nail changes, Pruritus, Rash Hematologic/lymphatic: DENIES: Bruising, Lymphadenopathy Immunologic/allergic: DENIES: Eczema, Urticaria Neurologic: DENIES: Abnormal gait, Headache, Localized weakness, Paresthesias, Seizures, Speech Problems, Tremor, Poor Balance Psychiatric: DENIES: Anxiety, Confusion, Mood changes, Depression, Hallucinations, Agitation, Suicidal Ideation, Homicidal Ideation, Delusions Past Family Social History Allergies: Coded Allergies: Morphine (Verified Allergy, Severe, "doctor stated i was unconscious and shaking", 07/29/16) ?SEIZURE Past Medical History Tectal glioma, 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, shunt in right frontal horn [place] x3 w stenting Peripheral edema Past Surgical History Cardiac stents VPS, non programmable, medium pressure Cataract surgery Reported Medications Reported Meds & Active Scripts Active Nebulizer/Adult Mask (N/A) 1 Kit Kit 1 Kit .ROUTE DIRECTED Albuterol Neb (Albuterol Sulfate) 2.5 Mg/3 Ml Neb 2.5 Mg NEB Q4HR NEB While awake Ventolin Hfa 18 GM Inh (Albuterol Sulfate) 90 Mcg/Act Aer 2 Puff INH Q4-6H PRN Augmentin (Amoxicillin-Clavulanate) 500-125 mg Tab 500 Mg PO Q8H 10 Days Lancets 1 Mis Mis 1 Ea .ROUTE DIRECTED Lancets for Contour Glucometer - check blood glucose twice daily. Dispense: #200 lancets Blood Glucose Test Strips 1 Kaila Kaila 1 Ea .ROUTE DIRECTED Contour Test 100 Strips - check blood glucose twice daily. Dispense: #200 test strips Topiramate 50 Mg Tab 50 Mg PO BID Carvedilol 12.5 Mg Tab 12.5 Mg PO BID Reported Lantus Inj (Insulin Glargine) 1,000 Unit/10 Ml Vial 25 Units SQ HS Latanoprost Opth Drops (Latanoprost) 0.005% Drops 1 Drop EACH EYE HS Refrigerate until opened. Januvia (Sitagliptin Phosphate) 100 Mg Tab 100 Mg PO DAILY Finasteride 5 Mg Tab 5 Mg PO DAILY Do not crush. Isosorbide Mononitrate ER (Isosorbide Mononitrate) 30 Mg Trever 30 Mg PO DAILY Crestor (Rosuvastatin Calcium) 40 Mg Tab 40 Mg PO DAILY Hydrochlorothiazide 25 Mg Tab 25 Mg PO DAILY Plavix (Clopidogrel Bisulfate) 75 Mg Tab 75 Mg PO DAILY Carbamazepine 200 Mg Tab 200 Mg PO BID Lisinopril 40 Mg Tab 20 Mg PO DAILY Glucophage (Metformin HCl) 500 Mg Tab 1,000 Mg PO BIDPC With meals Amlodipine (Amlodipine Besylate) 5 Mg Tab 10 Mg PO DAILY Family History Father at age 60, mother had a brain tumor Social History , does not smoke or drink Physical Exam Vital Signs Vital Signs Date Time Temp Pulse Resp B/P Pulse Ox O2 Delivery O2 Flow Rate FiO2 07/31/16 08:00 97 21 07/31/16 04:33 20 07/31/16 04:13 92 21 07/31/16 03:38 96.7 64 20 132/79 94 07/31/16 01:00 65 07/31/16 00:02 94 07/31/16 00:00 67 07/30/16 23:00 65 07/30/16 23:00 98.7 69 18 147/82 93 07/30/16 22:00 77 07/30/16 21:00 77 07/30/16 20:00 76 07/30/16 19:00 75 07/30/16 19:00 98.5 82 18 156/80 93 07/30/16 18:05 74 07/30/16 17:38 98.0 78 18 132/74 98 07/30/16 17:01 72 07/30/16 16:43 68 07/30/16 15:14 94 21 07/30/16 14:44 68 07/30/16 13:23 62 Physical Exam Alert in moderate distress from headache EOMI, pupils reactive with a left afferent pupillary defect, face symmetric, tongue midline No pronator drift, motor 5/5 in the upper and lower extremities, No sensory level, tone nl with no clonus or Babinski Abd soft, non tender. obese nl BS Ext mild peripheral edema but complain od calf swelling left greater than right DP pulses palpable bilaterally Laboratory Laboratory Tests Test 07/31/16 05:24 White Blood Count 6.3 Red Blood Count 3.83 Hemoglobin 11.3 Hematocrit 33.7 Mean Corpuscular Volume 88.1 Mean Corpuscular Hemoglobin 29.5 Mean Corpuscular Hemoglobin 33.5 Concent Red Cell Distribution Width 14.4 Platelet Count 183 Mean Platelet Volume 8.7 Sodium Level 142 Potassium Level 3.6 Chloride Level 108 Carbon Dioxide Level 25.5 Anion Gap 9 Blood Urea Nitrogen 18 Creatinine 1.16 Estimat Glomerular Filtration 61 Rate Random Glucose 90 Calcium Level 8.0 Date/Time Procedure Status Source Growth 07/29/16 20:56 Aerobic Blood Culture - Preliminary Resulted Blood Peripheral NO GROWTH IN 2 DAYS 07/29/16 20:56 Anaerobic Blood Culture - Preliminary Resulted Blood Peripheral NO GROWTH IN 2 DAYS Result Diagram: 07/31/1652307/31/1624 Imaging Last Impressions Chest X-Ray 07/29/161958 Signed Impressions: Service Date/Time: Friday, July 29, 2016 20:15 - CONCLUSION: 1. Minimal basilar atelectasis or scarring. Mild cardiomegaly. Milan Ash MD Assessment and Plan Diagnosis: (1) S/P FASHION EDITOR shunt Plan: The shunt is well connected from the previous shunt series but a new study is pending (2) History of coronary artery stent placement Plan: Plavix is continued (3) Glioma of brainstem Plan: He has never received radiation. He is due for a follow up study. The last MRI was from [address] from 2014. His headache will improve if the coughing improves but we should avoid fluid overload and repeat the MRI of the brain with mauricio if possible. Plan of care will follow the MRI findings. Abelardo Horton Jul 31, 2016 13:11
[2016-07-31] MEDS: CLOPIDOGREL 75 MG TAB PO SCH (14:03)
[2016-07-31] MEDS: ACETAMINOPHEN/HYDROcodone 325 MG/5 MG TAB PO PRN ×2 (14:03→21:47)
--- NOTE | 2016-07-31 14:52 | PD.CONS ---
History of Present Illness Service Neurology Consult Requested By medical Reason for Consult headache Primary Care Physician Duong Arguello MD History of Present Illness 80-year-old male with a PMH significant for multiple conditions including CAD with stents, pacemaker, and a RADIOCHEMICAL TECHNICIAN shunt. Presented today due to chest pressure that has been present over the last 4 days. The chest pressure is localized in the substernal and associated with SOB. also c/o headaches and neuro was consulted. glynn's x 1 week. from occipital region to the frontal. no photo/phonophobia. no temp pain, no jaw claudication. can be throbbing but induced/ worse when he coughs or bears down. has been coughing alot over the past few days. no vision loss, no weakness. speech stable. he is followed in our office. Review of Systems as above and admit hp Past Family Social History Past Medical History CAD s/p stent placement x3 --[place] x2 Bradycardia s/p pacemaker placement - Pacemaker placed in [place] in 02/2016 - [employer] implantable cardioverter/defibrillator Diabetes Mellitus type 2 -insulin dependent Hyperlipidemia Hypertension Cerebral aneurysm Brain stem tumor - non-surgical 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 - RADIOCHEMICAL TECHNICIAN shunt placement due to drainage of CSF issues - chronic headaches Chronic back pain - seen by pain management Nephrolithiasis Large lateral abdominal wall hernia Seizures x1 Cardiac arrest (2010) Past Surgical History RADIOCHEMICAL TECHNICIAN Shunt placement - 2009 Nephrolithiasis with right lateral open removal of stone Cardiac catheterization with stent placement - last in 2004 Low back epidural injection - 2014 Pacemaker placed in 02/2016 Reported Medications Reported Meds & Active Scripts Active Nebulizer/Adult Mask (N/A) 1 Kit Kit 1 Kit .ROUTE DIRECTED Albuterol Neb (Albuterol Sulfate) 2.5 Mg/3 Ml Neb 2.5 Mg NEB Q4HR NEB While awake Ventolin Hfa 18 GM Inh (Albuterol Sulfate) 90 Mcg/Act Aer 2 Puff INH Q4-6H PRN Augmentin (Amoxicillin-Clavulanate) 500-125 mg Tab 500 Mg PO Q8H 10 Days Lancets 1 Mis Mis 1 Ea .ROUTE DIRECTED Lancets for Contour Glucometer - check blood glucose twice daily. Dispense: #200 lancets Blood Glucose Test Strips 1 Kaila Kaila 1 Ea .ROUTE DIRECTED Contour Test 100 Strips - check blood glucose twice daily. Dispense: #200 test strips Topiramate 50 Mg Tab 50 Mg PO BID Carvedilol 12.5 Mg Tab 12.5 Mg PO BID Reported Lantus Inj (Insulin Glargine) 1,000 Unit/10 Ml Vial 25 Units SQ HS Latanoprost Opth Drops (Latanoprost) 0.005% Drops 1 Drop EACH EYE HS Refrigerate until opened. Januvia (Sitagliptin Phosphate) 100 Mg Tab 100 Mg PO DAILY Finasteride 5 Mg Tab 5 Mg PO DAILY Do not crush. Isosorbide Mononitrate ER (Isosorbide Mononitrate) 30 Mg Trever 30 Mg PO DAILY Crestor (Rosuvastatin Calcium) 40 Mg Tab 40 Mg PO DAILY Hydrochlorothiazide 25 Mg Tab 25 Mg PO DAILY Plavix (Clopidogrel Bisulfate) 75 Mg Tab 75 Mg PO DAILY Carbamazepine 200 Mg Tab 200 Mg PO BID Lisinopril 40 Mg Tab 20 Mg PO DAILY Glucophage (Metformin HCl) 500 Mg Tab 1,000 Mg PO BIDPC With meals Amlodipine (Amlodipine Besylate) 5 Mg Tab 10 Mg PO DAILY Allergies: Coded Allergies: Morphine (Verified Allergy, Severe, "doctor stated i was unconscious and shaking", 07/29/16) ?SEIZURE Family History Father: healthy Mother: brain tumor - Siblings: sister with breast cancer at age 36 Social History 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 Tobacco: never Alcohol: never Illicit drug use: none Review of Systems All other ROS: ROS reviewed as documented in chart Past Family Social History Allergies: Coded Allergies: Morphine (Verified Allergy, Severe, "doctor stated i was unconscious and shaking", 07/29/16) ?SEIZURE Active Ordered Medications Current Medications Medications (Trade) Dose Ordered Sig/Michael Route Start Time Stop Time Status Last Admin (Norvasc) 10 mg DAILY PO 07/30/16 09:00 07/31/16 08:24 (TEGretol) 200 mg BID PO 07/30/16 09:00 07/31/16 08:24 (Coreg) 12.5 mg BID PO 07/30/16 09:00 07/31/16 08:24 (Proscar) 5 mg DAILY PO 07/30/16 09:00 07/31/16 08:24 (Hydrodiuril) 25 mg DAILY PO 07/30/16 09:00 07/31/16 08:24 (Imdur) 30 mg DAILY PO 07/30/16 09:00 07/31/16 08:24 (Prinivil) 20 mg DAILY PO 07/30/16 09:00 07/31/16 08:24 (Topamax) 50 mg BID PO 07/30/16 09:00 07/31/16 08:24 (Lipitor) 80 mg DAILY PO 07/30/16 09:00 Hold 07/30/16 09:14 (NS Flush) 2 ml UNSCH PRN FLUSH 07/29/16 23:45 (NS Flush) 2 ml BID FLUSH 07/30/16 09:00 07/31/16 08:25 (Zofran Inj) 4 mg Q6H PRN IVP 07/29/16 23:45 (Lovenox Inj) 40 mg Q24H SQ 07/29/16 23:45 07/30/16 22:34 (Vasotec Inj) 1.25 mg Q6H PRN IV 07/29/16 23:45 (D50w (Vial) Inj) 25 ml UNSCH PRN IV PUSH 07/30/16 00:00 (Glucagon Inj) 1 mg UNSCH PRN OTHER 07/30/16 00:00 (Tylenol) 650 mg Q6H PRN PO 07/30/16 00:00 07/30/16 10:33 ([place] 5-325 Mg) 1 tab Q4H PRN PO 07/30/16 00:00 07/31/16 14:03 (Narcan Inj) 0.4 mg UNSCH PRN IV 07/30/16 00:00 Prednisone 40 mg 40 mg DAILY PO 07/30/16 09:00 07/31/16 08:24 (Rocephin Inj/NS Inj) 100 ml @ 200 mls/hr Q24H IV 07/30/16 21:00 07/30/16 20:30 (Zithromax) 500 mg Q24H PO 07/30/16 21:00 08/03/16 20:59 07/30/16 20:32 (Mucinex Er) 600 mg BID PO 07/30/16 00:00 07/31/16 08:24 (Levemir Inj) 10 units BID SQ 07/30/16 09:00 07/30/16 20:30 (Aspirin Chew) 162 mg DAILY PO 07/30/16 09:00 07/31/16 08:24 (Protonix) 40 mg DAILY PO 07/30/16 09:00 07/31/16 08:24 (Dilaudid Pf Inj) 1 mg Q4H PRN IV PUSH 07/31/16 09:00 07/31/16 09:44 (Ativan) 0.5 mg Q8H PRN PO 07/31/16 09:00 (Roxicodone) 10 mg Q6H PRN PO 07/31/16 12:15 (Plavix) 75 mg DAILY PO 07/31/16 13:15 07/31/16 14:03 Exam I&O / VS 07/30/16 07/30/16 07/31/16 15:00 23:00 07:00 Intake Total 1840 ml 440 ml Output Total 1600 ml Balance 240 ml 440 ml Intake Oral 840 ml 240 ml IV Total 1000 ml 200 ml Output Urine Total 1600 ml # Voids 3 2 # Bowel Movements 0 Vital Signs Date Time Temp Pulse Resp B/P Pulse Ox O2 Delivery O2 Flow Rate FiO2 07/31/16 08:00 97 21 07/31/16 04:33 20 07/31/16 04:13 92 21 07/31/16 03:38 96.7 64 20 132/79 94 07/31/16 01:00 65 07/31/16 00:02 94 07/31/16 00:00 67 07/30/16 23:00 65 07/30/16 23:00 98.7 69 18 147/82 93 07/30/16 22:00 77 07/30/16 21:00 77 07/30/16 20:00 76 07/30/16 19:00 75 07/30/16 19:00 98.5 82 18 156/80 93 07/30/16 18:05 74 07/30/16 17:38 98.0 78 18 132/74 98 07/30/16 17:01 72 07/30/16 16:43 68 07/30/16 15:14 94 21 Exam Comments awake, was sitting up , finished eating, was coughing during interview, eomi, od 2-1, os 4-3mm, vff, no temp tenderness, neck rom full, no focal weakness Review/Management Diagnosis/Plan: (1) S/P RADIOCHEMICAL TECHNICIAN shunt Plan: vp [employer] shunt series- shunt intact suspect his coughing may be precipitating his headaches through meningeal shear/ stretch mri brain pending pain control follow exam tx for uri/cough per medical (2) History of coronary artery stent placement Plan: Plavix is continued (3) Glioma of brainstem Plan: He has never received radiation. He is due for a follow up study. The last MRI was from [address] from 2014. His headache will improve if the coughing improves but we should avoid fluid overload and repeat the MRI of the brain with mauricio if possible. Plan of care will follow the MRI findings. has mri compatible pacemaker from [employer]omon[employer]. Micah Zepeda MD Jul 31, 2016 14:52
--- NOTE | 2016-07-31 15:04 | RADRPT ---
EXAM DATE/TIME: 07/31/2016 14:13 [facility] COMPARISON: SHUNT SERIES, May 06, 2014, 23:56. INDICATIONS : Severe neck pain and migraines. Evaluate shunt patency. MEDICAL HISTORY : Hypertension. Hypercholesterolemia. Myocardial infarction. Diabetic. Seizure. SURGICAL HISTORY : Pacemaker. Coronary artery stent. ENCOUNTER: Initial ACUITY: 1 week PAIN SCORE: 10/10 LOCATION: Shunt. FINDINGS: 8 views of the head, neck, chest, and abdomen documents a right frontal region PRIMARY CARE NURSE shunt in place. Tub ing is intact throughout its course. It courses along the anterior chest wall and the distal tip is i n the right lower quadrant laterally, stable from the prior study. No abnormal mass effect is appreci ated around the tip of the shunt. There are degenerative changes in the cervical spine. No acute cardiopulmonary abnormality is seen. M ultiple cholecystectomy clips are present. CONCLUSION: Intact shunt. Frankie Lehman MD on July 31, 2016 at 15:01 Board Certified Radiologist. This report was verified electronically.
[2016-07-31] MEDS: SODIUM CHLORIDE 0.9% FLUSH 5 ML FLUSH FLUSH PRN (18:31)
--- NOTE | 2016-07-31 19:29 | RADRPT ---
EXAM DATE/TIME: 07/31/2016 18:27 [facility] COMPARISON: No previous studies available for comparison. EXTERNAL COMPARISON : [facility], US LEG, LEFT VENOUS DOPPLER, June 13, 2016 INDICATIONS : Swelling in bilateral lower extremities. MEDICAL HISTORY : Myocardial infarction. Hypercholesterolemia. Arthritis. Head trauma. Dizziness. Migraine. Cardiac arr est x 2. Coronary artery disease. Plavix. Pneumonia. Hypertension. Sleep apnea. Renal disease. Renal calculi. Chronic back pain. Diabetes. 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. Tectal glioma. SURGICAL HISTORY : Pacemaker. Cardiac stent x 3. Lithotripsy, right kidney. Cardiac cath. Left forearm plates and screws . Right frontal horn shunt for hydrocephalus. ENCOUNTER: Subsequent ACUITY: 1 day PAIN SCORE: 0/10 LOCATION: Bilateral legs. TECHNIQUE: Venous ultrasound of the left and right leg was performed from the inguinal ligament to the proximal calf. Real-time, color Doppler and spectral tracing, compression and augmentation techniques were us ed. FINDINGS: RIGHT LEG: There is normal compressibility of the deep venous system from the inguinal region to the proximal ca lf. No echogenic clot is seen in the lumen of the common femoral, femoral, popliteal, and posterior tibial veins. There is a normal response of the venous system to proximal and distal augmentation an d respiration. LEFT LEG: There is normal compressibility of the deep venous system from the inguinal region to the proximal ca lf. No echogenic clot is seen in the lumen of the common femoral, femoral, popliteal, and posterior tibial veins. There is a normal response of the venous system to proximal and distal augmentation an d respiration. CONCLUSION: Negative exam. No sonographic or Doppler findings of deep venous thrombosis in either lower ext remity. Derick Mawxell MD on July 31, 2016 at 19:26 Board Certified Radiologist. This report was verified electronically.
--- NOTE | 2016-07-31 21:02 | MB ---
cc: KAREN CORDOBA M.D. DATE OF CONSULTATION: 07/31/2016. HISTORY OF PRESENT ILLNESS: Sheri is a very pleasant 72-year-old gentleman with a ventriculoperitoneal shunt due to hydrocephalus. I consulted on him remotely due to an episode of ventricular tachycardia postprocedure, did a heart catheterization on him which showed nonobstructive coronary disease. The patient cannot be fully anticoagulated due to his ventriculoperitoneal shunt. Consult is obtained for clearance for MRI of the brain with presence of a pacemaker. The patient complains of nonproductive cough, upper airway congestion, sinus congestion and he also notes some mild chest pain. He otherwise denies any GI or bleeding, paroxysmal nocturnal dyspnea, orthopnea, syncope or dizziness. PAST MEDICAL HISTORY: His past medical history is as per the history of present illness. 1. He is also status post percutaneous coronary intervention. 2. He has a history of diabetes. 3. Seizure disorder. 4. Dyslipidemia. 5. Atrial fibrillation. 6. Hypertension. 7. Myocardial infarction. 8. Cardiac arrest. 9. Dyslipidemia. 10. He has chronic back pain. 11. Myocardial infarction x3. 12. Seizure disorder. 13. Cardiac arrest. 14. Sleep apnea. 15. Screws and plate in the left arm. 16. Pacemaker placed in February of 2016. 17. Percutaneous coronary intervention of the coronaries x3. 18. Right kidney surgery, lithotripsy. SOCIAL HISTORY: Denies tobacco or alcohol use. ALLERGIES: Morphine. MEDICATIONS PRIOR TO ADMISSION: 1. Nebulizer albuterol. 2. Ventolin. 3. Augmentin. 4. Linzess. 5. Topiramate. 6. Carvedilol 12.5 twice a day. 7. Lantus. 8. Pantoprazole. 9. Januvia. 10. Finasteride. 11. Isosorbide mononitrate 30 daily. 12. Crestor 40 daily. 13. Hydrochlorothiazide 25 daily. 14. Plavix 75 daily. 15. Carbamazepine 200 twice a day. 16. Lisinopril 40 daily. 17. Glucophage 1000 twice a day. 18. Amlodipine 10 milligrams daily. PHYSICAL EXAMINATION: VITAL SIGNS: Blood pressure 132/79, pulse 64, respiratory rate 20, temperature 96.7. GENERAL: He is alert and oriented times three and in no acute distress. NECK: The neck is supple. No jugular venous distention. No bruits. CARDIOVASCULAR EXAM: S1 and S2. No murmurs, rubs or gallops. LUNGS: Clear to auscultation bilaterally. ABDOMEN: The abdomen is soft, nontender and nondistended with positive bowel sounds. EXTREMITIES: No lower extremity edema. IMAGING STUDIES: Chest x-ray shows minimal basilar atelectasis or scarring and mild cardiomegaly. LABORATORY DATA: White count 6.3, hemoglobin 11.3, hematocrit 33.7, platelet count 183,000. Sodium 142, potassium 3.6, chloride 108, bicarbonate 25.5, BUN 18, creatinine 1.16. Troponin is 0.03 and 0.02. BNP is 35. INR is 26.6. EKGS: EKG shows normal sinus rhythm with first-degree block, right bundle-branch block, left anterior fascicular block, poor R-wave progression, nonspecific ST-T wave changes and prolonged corrected Q-T interval. DIAGNOSIS: He has the following diagnoses: 1. Coronary artery disease. 2. Chest pain. 3. Bronchitis. 4. Ventriculoperitoneal shunt. 5. Seizure disorder. 6. Diabetes. 7. Hypertension. 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 10. History of cardiac arrest. 11. Anemia. 12. Pacemaker. DISCUSSION: At this point in time, will be an electrophysiology evaluation with Dr. Abreu to determine the risks and benefits of MRI of the head with pacemaker in place. Regarding the patient's chest pain, he has no objective evidence of ischemia by EKG or cardiac enzymes. He is not a candidate for anticoagulation; therefore, percutaneous coronary intervention does not appear to be an option. He is on optimum medical therapy. Would continue Plavix, Crestor 40, carvedilol 12.5 twice a day, amlodipine 10 milligrams daily, hydrochlorothiazide 25 daily, Imdur 30 daily, lisinopril 20 daily, aspirin 162 milligrams daily. Could consider increasing the Imdur and Coreg; however, his pain is not related to exertion and it is not correlated with any ischemic changes on the EKG or cardiac enzymes and therefore I doubt that his pain is ischemic in etiology. Again, nevertheless could consider increasing those medications PRN. MD CHRIS Lopez/FRANTZ /2:28 PM /8:46 PM
[2016-07-31] MEDS: AZITHROMYCIN 250 MG TAB PO SCH (21:22)
[2016-07-31] MEDS: cefTRIAXone INJ 1,000 MG in SODIUM CHLORIDE 0.9% INJ 100 ML IV SCH (21:27)
[2016-07-31] MEDS: LORazepam 0.5 MG TAB PO PRN (21:46)
[2016-08-01] VITALS (10 sets, daily range): BP systolic 104–172; BP diastolic 69–95; PULSE 65–91; RESP 16–24; TEMP 95.8–98.5; O2SAT 90–96
[2016-08-01] MEDS: RESP: ALBUTEROL 2.5 MG/IPRATROPIUM 0.5 MG NEB (SCH) INH ×3 (00:01→09:15)
[2016-08-01 06:50] LABS: AUTOMATED NEUTROPHIL # 4.2 TH/MM3 (1.8-7.7); BASOPHIL # 0.1 TH/MM3 (0-0.2); BASOPHIL % 1.2 % (0.0-2.0); EOSINOPHIL # 0.3 TH/MM3 (0-0.4); EOSINOPHIL % 5.4 % (0.0-4.0); HEMATOCRIT 35.3 % (39.0-51.0); HEMO FLAGS DIFF FINAL; LYMPH % 20.3 % (9.0-44.0); LYMPHOCYTE # 1.3 TH/MM3 (1.0-4.8); MEAN CELL VOLUME 89.2 FL (80.0-100.0); MEAN CORPUSCULAR HEMOGLOBIN 29.7 PG (27.0-34.0); MEAN CORPUSCULAR HGB CONC 33.3 % (32.0-36.0); MONO % 7.3 % (0.0-8.0); NEUT % 65.8 % (16.0-70.0); PLATELET COUNT 210 TH/MM3 (150-450); RED BLOOD COUNT 3.95 MIL/MM3 (4.50-5.90); RED CELL DISTRIBUTION WIDTH 14.1 % (11.6-17.2); WHITE BLOOD COUNT 6.4 TH/MM3 (4.0-11.0)
[2016-08-01] MEDS: INSULIN ASPART SUPPLEMENTAL SCALE SQ SCH ×4 (06:56→21:00)
[2016-08-01] MEDS: ACETAMINOPHEN/HYDROcodone 325 MG/5 MG TAB PO PRN ×3 (06:59→21:41)
[2016-08-01 07:11] LABS: BICARBONATE 28.1 MEQ/L (21.0-32.0); POTASSIUM 3.5 MEQ/L (3.5-5.1)
--- NOTE | 2016-08-01 08:25 | HHI.PR ---
Review/Management Diagnosis/Plan: (1) S/P DIGITAL MANAGER shunt Plan: vp data shunt series- shunt intact suspect his coughing may be precipitating his headaches through meningeal shear/ stretch mri brain pending pain control follow exam tx for uri/cough per medical; ? 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 He is due for a follow up study. The last MRI was from [address] from 2014. His headache will improve if the coughing improves but we should avoid fluid overload and repeat the MRI of the brain with mauricio if possible. Plan of care will follow the MRI findings. has mri compatible pacemaker from [employer]. [employer]. Subjective Subjective Comments No acute events reported frequent coughing followed by headache sitting up waiting for breakfast Active Medications Current Medications Medications (Trade) Dose Ordered Sig/Michael Route Start Time Stop Time Status Last Admin (Norvasc) 10 mg DAILY PO 07/30/16 09:00 07/31/16 08:24 (TEGretol) 200 mg BID PO 07/30/16 09:00 07/31/16 21:22 (Coreg) 12.5 mg BID PO 07/30/16 09:00 07/31/16 21:22 (Proscar) 5 mg DAILY PO 07/30/16 09:00 07/31/16 08:24 (Hydrodiuril) 25 mg DAILY PO 07/30/16 09:00 07/31/16 08:24 (Imdur) 30 mg DAILY PO 07/30/16 09:00 07/31/16 08:24 (Prinivil) 20 mg DAILY PO 07/30/16 09:00 07/31/16 08:24 (Topamax) 50 mg BID PO 07/30/16 09:00 07/31/16 21:22 (Lipitor) 80 mg DAILY PO 07/30/16 09:00 Hold 07/30/16 09:14 (NS Flush) 2 ml UNSCH PRN FLUSH 07/29/16 23:45 07/31/16 18:31 (NS Flush) 2 ml BID FLUSH 07/30/16 09:00 07/31/16 08:25 (Zofran Inj) 4 mg Q6H PRN IVP 07/29/16 23:45 (Lovenox Inj) 40 mg Q24H SQ 07/29/16 23:45 07/30/16 22:34 (Vasotec Inj) 1.25 mg Q6H PRN IV 07/29/16 23:45 (D50w (Vial) Inj) 25 ml UNSCH PRN IV PUSH 07/30/16 00:00 (Glucagon Inj) 1 mg UNSCH PRN OTHER 07/30/16 00:00 (Tylenol) 650 mg Q6H PRN PO 07/30/16 00:00 07/30/16 10:33 ([place] 5-325 Mg) 1 tab Q4H PRN PO 07/30/16 00:00 08/01/16 06:59 (Narcan Inj) 0.4 mg UNSCH PRN IV 07/30/16 00:00 Prednisone 40 mg 40 mg DAILY PO 07/30/16 09:00 07/31/16 08:24 (Rocephin Inj/NS Inj) 100 ml @ 200 mls/hr Q24H IV 07/30/16 21:00 07/31/16 21:27 (Zithromax) 500 mg Q24H PO 07/30/16 21:00 08/03/16 20:59 07/31/16 21:22 (Mucinex Er) 600 mg BID PO 07/30/16 00:00 07/31/16 21:22 (Levemir Inj) 10 units BID SQ 07/30/16 09:00 07/31/16 21:21 (Aspirin Chew) 162 mg DAILY PO 07/30/16 09:00 07/31/16 08:24 (Protonix) 40 mg DAILY PO 07/30/16 09:00 07/31/16 08:24 (Dilaudid Pf Inj) 1 mg Q4H PRN IV PUSH 07/31/16 09:00 07/31/16 18:30 (Ativan) 0.5 mg Q8H PRN PO 07/31/16 09:00 07/31/16 21:46 (Roxicodone) 10 mg Q6H PRN PO 07/31/16 12:15 (Plavix) 75 mg DAILY PO 07/31/16 13:15 07/31/16 14:03 (Catapres) 0.1 mg Q8HR PO 08/01/16 08:15 UNV (Roxicodone) 10 mg Q8H PO 08/01/16 08:15 UNV Allergies Allergies Coded Allergies Morphine (Verified Allergy, Severe, "doctor stated i was unconscious and shaking", 07/29/16) Review of Systems All other ROS: ROS reviewed as documented in chart Exam I&O / VS 07/31/16 07/31/16 08/01/16 15:00 23:00 07:00 Intake Total 1320 ml 340 ml 240 ml Balance 1320 ml 340 ml 240 ml Intake Oral 720 ml 240 ml 240 ml IV Total 600 ml 100 ml # Voids 3 2 1 # Bowel Movements 0 0 Vital Signs Date Time Temp Pulse Resp B/P Pulse Ox O2 Delivery O2 Flow Rate FiO2 08/01/16 04:00 96.4 91 19 160/93 94 08/01/16 00:06 95 08/01/16 00:00 96.7 65 18 144/77 94 07/31/16 20:00 97.6 74 18 155/80 94 07/31/16 16:49 97.6 72 17 153/81 94 07/31/16 13:30 96.5 79 18 146/70 94 Exam Comments awake, was sitting up, no aphasia, articulate, coughing during interview, eomi, od 2-1, os 4-3mm, vff, no temp tenderness, neck rom full, no focal weakness Objective Micro and Labs Laboratory Tests Test 07/31/16 08/01/16 08/01/16 16:42 06:14 06:16 Erythrocyte Sedimentation Rate 25 C-Reactive Protein 1.30 Vitamin B12 Level 417 Thyroid Stimulating Hormone 0.488 3rd Gen Carbamazepine (Tegretol) Level 6.5 Sodium Level 142 Potassium Level 3.5 Chloride Level 107 Carbon Dioxide Level 28.1 Anion Gap 7 Blood Urea Nitrogen 19 Creatinine 1.23 Estimat Glomerular Filtration 57 Rate Random Glucose 130 Calcium Level 8.5 White Blood Count 6.4 Red Blood Count 3.95 Hemoglobin 11.8 Hematocrit 35.3 Mean Corpuscular Volume 89.2 Mean Corpuscular Hemoglobin 29.7 Mean Corpuscular Hemoglobin 33.3 Concent Red Cell Distribution Width 14.1 Platelet Count 210 Mean Platelet Volume 8.4 Neutrophils (%) (Auto) 65.8 Lymphocytes (%) (Auto) 20.3 Monocytes (%) (Auto) 7.3 Eosinophils (%) (Auto) 5.4 Basophils (%) (Auto) 1.2 Neutrophils # (Auto) 4.2 Lymphocytes # (Auto) 1.3 Monocytes # (Auto) 0.5 Eosinophils # (Auto) 0.3 Basophils # (Auto) 0.1 CBC Comment DIFF FINAL Differential Comment Date/Time Procedure Status Source Growth 07/29/16 20:56 Aerobic Blood Culture - Preliminary Resulted Blood Peripheral NO GROWTH IN 2 DAYS 07/29/16 20:56 Anaerobic Blood Culture - Preliminary Resulted Blood Peripheral NO GROWTH IN 2 DAYS Micah Zepeda MD Aug 01, 2016 08:25
--- NOTE | 2016-08-01 08:58 | HHI.FPPN ---
Subjective Remarks Patient seen this morning. No acute events overnight. SBP up to the 160s this morning. Otherwise vitals are WNL. Main complaint this AM is of continued CANALES and coughing. He feels there is congestion in his lungs he can't clear, despite mucinex. CANALES starts in the back of his head then moves forward. No new numbness/ tingling or weakness in the extremities. Does not feel ready to go home until sxs better controlled. (Terrance Tiwari MD R3) Objective Vitals Vital Signs Date Time Temp Pulse Resp B/P Pulse Ox O2 Delivery O2 Flow Rate FiO2 08/01/16 04:00 96.4 91 19 160/93 94 08/01/16 00:06 95 08/01/16 00:00 96.7 65 18 144/77 94 07/31/16 20:00 97.6 74 18 155/80 94 07/31/16 16:49 97.6 72 17 153/81 94 07/31/16 13:30 96.5 79 18 146/70 94 I/O 07/31/16 07/31/16 07/31/16 08/01/16 08/01/16 08/01/16 07:00 15:00 23:00 07:00 15:00 23:00 Intake Total 440 ml 1320 ml 340 ml 240 ml Balance 440 ml 1320 ml 340 ml 240 ml Intake Oral 240 ml 720 ml 240 ml 240 ml IV Total 200 ml 600 ml 100 ml # Voids 2 3 2 1 # Bowel Movements 0 0 0 (Terrance Tiwari MD R3) Result Diagram: 08/01/16 0616 08/01/16 0614 Objective Remarks GENERAL: This is an obese male in mild distress 2/2 CANALES. Wet-sounding cough throughout exam. SKIN: No rashes, ecchymoses or lesions. Cool and dry. EYES: Pupils equal round and reactive. Extraocular motions intact. No scleral icterus. No injection or drainage. ENT: Nose without bleeding, purulent drainage. Airway patent. Sinuses non-TTP. NECK: No lymphadenopathy. Supple, nontender, no meningeal signs. CARDIOVASCULAR: Regular rate and rhythm without murmurs, gallops, or rubs. RESPIRATORY: non-labored. Rales that clear with coughing. No other adventitious sounds. GASTROINTESTINAL: Abdomen soft, non-tender. No hepato-splenomegaly, or palpable masses. No guarding. MUSCULOSKELETAL: Extremities without clubbing, cyanosis, or edema. No calf tenderness. NEUROLOGICAL: Awake and alert. Motor and sensory grossly within normal limits. Normal speech. (Terrance Tiwari MD R3) A/P Assessment and Plan 80-year-old male with a significant cardiac history including multiple stents, pacemaker. Admitted for chest pain and suspected pneumonia. Now with worsening CANALES and cough. Discharge Planning Likely DC in 1-2 days. Per neuro, DC once symptoms better controlled. May have MRI as outpatient, if needed. Will discuss with Dr. Steele (Terrance Tiwari MD R3) Attending Attestation Patient seen and examined. Case reviewed and discussed with the resident team. Agree with plan of care as discussed with me and documented in the resident note. Dr Arguello is his regular Primary care Dr and will be seeing Mr Yousif this week (Radha Steele MD) Problem List: (1) Pneumonia Status: Acute Plan: Reports a prior diagnosis of pneumonia that was treated with Augmentin. Continues to be symptomatic with chest pressure, SOB, nonproductive cough. No fevers present. Admission vital signs unremarkable. -No leukocytosis or lactic acidosis -UA ordered but not yet obtained -Chest x-ray is not quite indicative of pneumonia however the x-ray performed today does show improvement in comparison to the x-ray 2 days prior while being on antibiotics. Imaging: * CXR: Minimal basilar atelectasis or scarring. Mild cardiomegaly Medications: * Rocephin 1g 07/29- * Azithromycin 500mg 07/29- * Change prednisone to decadron. Will give decadron 8mg IV x1 today, then 4mg PO daily. May help if CANALES from increased icp. * Continue q4 Duoneb with PRN albuterol * Mucinex * Add robitussin AC and benadryl for cough * Add CPT to help clear secretions (2) Cephalgia Status: Chronic Plan: Reporting continued symptoms of chronic headaches that are similar to his baseline headaches. Likely related to cough. -shunt study 07/31 negative -Neurology consulted recommendation appreciated -Pain control: [place] 5/325mg pain 1-5 [place] 10/325mg pain 6-10 Dilaudid 1mg breakthrough pain (3) Diabetes mellitus type 2, insulin dependent Status: Chronic Plan: Patient currently on oral and insulin medications. Will decrease home long-acting insulin initially due to history of decreased appetite. -Accu-Cheks of low-dose sliding scale. 8 u ss requirement over the past 24 hours. Fasting sugar in the 120s this AM. -Levemir 10 units bid (4) Increased CPK level Status: Acute Plan: CPK in the 600s. Possibly 2/2 some dehydration. Re-check with tomorrow's labs. Hold statin for now. (5) Anxiety Status: Chronic Plan: Report history of anxiety. - Ativan 1mg for anxiety (6) Nutrition, metabolism, and development symptoms Status: Acute Plan: Diet: Diabetic Fluids: NS at 100 Electrolytes: Unremarkable DVT prophylaxis: Lovenox GI prophylaxis: Protonix Chronic conditions: * BPH: Continue home finasteride * Seizures: Carbamazepine and Topamax * HTN/HLD: See management plan under chest pain (Terrance Tiwari MD R3) Problem Qualifiers (1) Pneumonia: Qualified Code: J18.1 - Pneumonia of lower lobe due to infectious organism, unspecified laterality (2) Cephalgia: Qualified Code: R51 - Nonintractable episodic headache, unspecified headache type Terrance Tiwari MD R3 Aug 01, 2016 08:58 Radha Steele MD Aug 03, 2016 14:24
[2016-08-01] MEDS ORDERED: guaiFENesin/CODEINE SYRUP 200 MG/20 MG/10 ML CUP PO PRN (09:00)
[2016-08-01] MEDS: carBAMazepine 200 MG TAB PO SCH ×2 (09:00→20:59)
[2016-08-01] MEDS: SODIUM CHLORIDE 0.9% FLUSH 5 ML FLUSH FLUSH SCH ×2 (09:00→20:59)
[2016-08-01] MEDS ORDERED: diphenhydrAMINE HCL 25 MG CAP PO PRN (09:00)
[2016-08-01] MEDS: CARVEDILOL 12.5 MG TAB PO SCH ×2 (09:56→20:59)
[2016-08-01] MEDS: ISOSORBIDE MONONITRATE 30 MG TAB PO SCH (09:56)
[2016-08-01] MEDS: FINASTERIDE 5 MG TAB PO SCH (09:56)
[2016-08-01] MEDS: INSULIN DETEMIR 100 UNITS/ML VIAL SQ SCH ×2 (09:56→21:32)
[2016-08-01] MEDS: HYDROCHLOROTHIAZIDE 25 MG TAB PO SCH (09:56)
[2016-08-01] MEDS: guaiFENesin E.R. 600 MG TAB PO SCH (09:56)
[2016-08-01] MEDS: CLOPIDOGREL 75 MG TAB PO SCH (09:56)
[2016-08-01] MEDS: ASPIRIN 81 MG CHEW TAB PO SCH (09:57)
[2016-08-01] MEDS: PANTOPRAZOLE SOD 40 MG DELAYED RELEASE TAB PO SCH (09:57)
[2016-08-01] MEDS: LISINOPRIL 20 MG TAB PO SCH (09:57)
[2016-08-01] MEDS: amLODIPine BESYLATE 5 MG TAB PO SCH (09:57)
[2016-08-01] MEDS: cloNIDine HCL 0.1 MG TAB PO SCH ×3 (09:59→21:43)
[2016-08-01] MEDS: TOPIRAMATE 25 MG TAB PO SCH ×2 (09:59→21:31)
[2016-08-01] MEDS ORDERED: DEXAMETHASONE SOD PHOS 4 MG/ML VIAL IV PUSH ONE (10:00)
[2016-08-01] MEDS: RESP: ALBUTEROL 2.5 MG/IPRATROPIUM 0.5 MG NEB (SCH) NEB ×2 (12:26→20:00)
[2016-08-01] MEDS ORDERED: guaiFENesin/CODEINE SYRUP 200 MG/20 MG/10 ML CUP PO SCH (12:57)
[2016-08-01] MEDS ORDERED: HYDROcodone 5 MG/HOMATROPINE 1.5 MG SYRUP 5 ML CUP PO SCH (13:00)
[2016-08-01] MEDS: guaiFENesin/CODEINE SYRUP 200 MG/20 MG/10 ML CUP PO SCH ×2 (13:46→18:47)
--- NOTE | 2016-08-01 14:57 | PD.CARD.PN ---
Subjective Subjective Remarks alert in nad Objective Vital Signs / I&O Vital Signs Date Time Temp Pulse Resp B/P Pulse Ox O2 Delivery O2 Flow Rate FiO2 08/01/16 09:16 96 21 08/01/16 08:00 95.8 67 20 172/95 93 08/01/16 04:00 96.4 91 19 160/93 94 08/01/16 00:06 95 08/01/16 00:00 96.7 65 18 144/77 94 07/31/16 20:00 97.6 74 18 155/80 94 07/31/16 16:49 97.6 72 17 153/81 94 I/O 07/31/16 07/31/16 07/31/16 08/01/16 08/01/16 08/01/16 07:00 15:00 23:00 07:00 15:00 23:00 Intake Total 440 ml 1320 ml 340 ml 240 ml Balance 440 ml 1320 ml 340 ml 240 ml Intake Oral 240 ml 720 ml 240 ml 240 ml IV Total 200 ml 600 ml 100 ml # Voids 2 3 2 1 # Bowel Movements 0 0 0 Laboratory GENERAL: SKIN: Warm and dry. HEAD: Normocephalic. EYES: No scleral icterus. No injection or drainage. NECK: Supple, trachea midline. No JVD or lymphadenopathy. CARDIOVASCULAR: Regular rate and rhythm without murmurs, gallops, or rubs. RESPIRATORY: Breath sounds equal bilaterally. No accessory muscle use. GASTROINTESTINAL: Abdomen soft, non-tender, nondistended. MUSCULOSKELETAL: No cyanosis, or edema. BACK: Nontender without obvious deformity. No CVA tenderness. Laboratory Tests Test 07/31/16 08/01/16 08/01/16 16:42 06:14 06:16 Erythrocyte Sedimentation Rate 25 mm/hr C-Reactive Protein 1.30 MG/DL Vitamin B12 Level 417 PG/ML Thyroid Stimulating Hormone 0.488 uIU/ML 3rd Gen Carbamazepine (Tegretol) Level 6.5 MCG/ML Sodium Level 142 MEQ/L Potassium Level 3.5 MEQ/L Chloride Level 107 MEQ/L Carbon Dioxide Level 28.1 MEQ/L Anion Gap 7 MEQ/L Blood Urea Nitrogen 19 MG/DL Creatinine 1.23 MG/DL Estimat Glomerular Filtration 57 ML/MIN Rate Random Glucose 130 MG/DL Calcium Level 8.5 MG/DL White Blood Count 6.4 TH/MM3 Red Blood Count 3.95 MIL/MM3 Hemoglobin 11.8 GM/DL Hematocrit 35.3 % Mean Corpuscular Volume 89.2 FL Mean Corpuscular Hemoglobin 29.7 PG Mean Corpuscular Hemoglobin 33.3 % Concent Red Cell Distribution Width 14.1 % Platelet Count 210 TH/MM3 Mean Platelet Volume 8.4 FL Neutrophils (%) (Auto) 65.8 % Lymphocytes (%) (Auto) 20.3 % Monocytes (%) (Auto) 7.3 % Eosinophils (%) (Auto) 5.4 % Basophils (%) (Auto) 1.2 % Neutrophils # (Auto) 4.2 TH/MM3 Lymphocytes # (Auto) 1.3 TH/MM3 Monocytes # (Auto) 0.5 TH/MM3 Eosinophils # (Auto) 0.3 TH/MM3 Basophils # (Auto) 0.1 TH/MM3 CBC Comment DIFF FINAL Differential Comment Assessment and Plan Problem List: (1) Cardiac pacemaker in situ (2) Chest pain (3) Coronary artery disease (4) Hyperlipidemia (5) Seizure disorder (6) Diabetes mellitus type 2, insulin dependent (7) S/P CHEF UNDER shunt (8) History of coronary artery stent placement Assessment and Plan 1.) PPM - awaiting Dr Alexys lafleur for risks/benefits of mri of head Problem Qualifiers (1) Chest pain: Qualified Code: R07.89 - Other chest pain Vincenzo Alex MD Aug 01, 2016 14:57
[2016-08-01] MEDS: RESP: ALBUTEROL 2.5 MG/3 ML NEB (PRN) INH ×2 (15:24→23:25)
[2016-08-01] MEDS: AZITHROMYCIN 250 MG TAB PO SCH (20:59)
[2016-08-01] MEDS: cefTRIAXone INJ 1,000 MG in SODIUM CHLORIDE 0.9% INJ 100 ML IV SCH (20:59)
[2016-08-01] MEDS: ENOXAPARIN SODIUM 40 MG/0.4 ML SYRINGE SQ SCH (21:03)
--- NOTE | 2016-08-01 22:08 | EKG ---
Date Performed: 07/30/2016 Time Performed: 06:35:44 PTAGE: 80 years EKG: Probable sinus bradycardia Left axis deviation RBBB with left anterior fascicular block Pos sible septal infarct - age undetermined Lateral T wave changes are nonspecific Abnormal ECG PREVIOUS TRACING : 07/29/2016 20.07 Compared to prior tracing no significant change DOCTOR: Morgan Landry Interpretating Date/Time 08/01/2016 22:07:39
--- NOTE | 2016-08-01 22:27 | EKG ---
Date Performed: 07/30/2016 Time Performed: 00:53:02 PTAGE: 80 years EKG: Sinus rhythm RIGHT BUNDLE BRANCH BLOCK LEFT ANTERIOR FASCICULAR BLOCK SEPTAL MYOCARDIAL INFARCTION ABNORMAL ECG C ompared to the PREVIOUS TRACING from 07/29/16, no significant changes noted DOCTOR: Morgan Landry Interpretating Date/Time 08/01/2016 22:26:34
--- NOTE | 2016-08-01 22:41 | EKG ---
Date Performed: 07/29/2016 Time Performed: 20:07:17 PTAGE: 80 years EKG: Sinus rhythm WITH FIRST DEGREE AV BLOCK RIGHT BUNDLE BRANCH BLOCK LEFT ANTERIOR FASCICULAR BLOCK SEPTAL MYOCARDIA L INFARCTION ABNORMAL ECG PREVIOUS TRACING : 07/28/2016 14.45 Compared to prior tracing no significant change DOCTOR: Morgan Landry Interpretating Date/Time 08/01/2016 22:40:48
[2016-08-02] VITALS (8 sets, daily range): BP systolic 107–140; BP diastolic 68–74; PULSE 60–72; RESP 16; TEMP 95.9–97.5; O2SAT 93–96
[2016-08-02] MEDS: guaiFENesin/CODEINE SYRUP 200 MG/20 MG/10 ML CUP PO SCH ×4 (00:16→18:24)
[2016-08-02] MEDS: ACETAMINOPHEN/HYDROcodone 325 MG/5 MG TAB PO PRN ×3 (03:53→18:23)
[2016-08-02] MEDS: RESP: ALBUTEROL 2.5 MG/3 ML NEB (PRN) INH ×2 (03:56→17:42)
[2016-08-02] MEDS: cloNIDine HCL 0.1 MG TAB PO SCH ×3 (05:56→22:27)
[2016-08-02] MEDS: INSULIN ASPART SUPPLEMENTAL SCALE SQ SCH ×4 (06:03→20:09)
[2016-08-02 06:12] LABS: AUTOMATED NEUTROPHIL # 5.8 TH/MM3 (1.8-7.7); BASOPHIL # 0.1 TH/MM3 (0-0.2); EOSINOPHIL # 0.5 TH/MM3 (0-0.4); EOSINOPHIL % 5.1 % (0.0-4.0); HEMATOCRIT 39.5 % (39.0-51.0); HEMO FLAGS DIFF FINAL; LYMPH % 23.3 % (9.0-44.0); LYMPHOCYTE # 2.1 TH/MM3 (1.0-4.8); MEAN CELL VOLUME 89.4 FL (80.0-100.0); MEAN CORPUSCULAR HEMOGLOBIN 29.7 PG (27.0-34.0); MEAN CORPUSCULAR HGB CONC 33.3 % (32.0-36.0); MONO % 7.2 % (0.0-8.0); NEUT % 63.4 % (16.0-70.0); PLATELET COUNT 244 TH/MM3 (150-450); RED BLOOD COUNT 4.42 MIL/MM3 (4.50-5.90); RED CELL DISTRIBUTION WIDTH 14.6 % (11.6-17.2); WHITE BLOOD COUNT 9.1 TH/MM3 (4.0-11.0)
[2016-08-02 06:36] LABS: POTASSIUM 4.2 MEQ/L (3.5-5.1)
--- NOTE | 2016-08-02 06:42 | HHI.FPPN ---
Subjective Remarks Patient seen this morning. No acute events overnight. Vitals essentially WNL. Patient reports CANALES and cough significantly improved compared to yesterday. Still feels he is not ready for discharge. Wants MRI to "know what is going on with my tumor and why I started getting headaches all of the sudden". No other complaints this morning. Ambulating well. Appetite is good. No N/V. (Terrance Tiwari MD R3) Objective Vitals Vital Signs Date Time Temp Pulse Resp B/P Pulse Ox O2 Delivery O2 Flow Rate FiO2 08/02/16 04:00 96.8 68 16 140/72 95 08/02/16 00:00 97.5 69 16 132/69 94 08/01/16 20:01 92 Nasal Cannula 08/01/16 20:00 97.2 74 16 119/71 93 08/01/16 17:22 69 08/01/16 16:00 98.5 74 24 104/69 90 08/01/16 12:00 97.8 78 20 112/72 95 08/01/16 09:16 96 21 08/01/16 08:00 95.8 67 20 172/95 93 I/O 08/01/16 08/01/16 08/01/16 08/02/16 08/02/16 08/02/16 07:00 15:00 23:00 07:00 15:00 23:00 Intake Total 240 ml 720 ml 240 ml 480 ml Output Total 800 ml 600 ml Balance 240 ml -80 ml 240 ml -120 ml Intake Oral 240 ml 720 ml 240 ml 480 ml Output Urine Total 800 ml 600 ml # Voids 1 3 1 # Bowel Movements 0 0 0 (Terrance Tiwari MD R3) Result Diagram: 08/02/16 0543 08/01/16 0614 Objective Remarks GENERAL: This is well appearing elderly male. In NAD. Sitting up in bed this AM. SKIN: No rashes, ecchymoses or lesions. Cool and dry. EYES: Pupils equal round and reactive. Extraocular motions intact. No scleral icterus. No injection or drainage. CARDIOVASCULAR: Regular rate and rhythm without murmurs, gallops, or rubs. RESPIRATORY: non-labored. CTAB. No adventitious sounds. GASTROINTESTINAL: Abdomen soft, non-tender. No hepato-splenomegaly, or palpable masses. No guarding. MUSCULOSKELETAL: Extremities without clubbing, cyanosis, or edema. No calf tenderness. NEUROLOGICAL: Awake and alert. Motor and sensory grossly within normal limits. Normal speech. (Terrance Tiwari MD R3) A/P Assessment and Plan 80-year-old male with a significant cardiac history including multiple stents, pacemaker. Admitted with c/o chest pain and new CANALES. Now with improving cough and CANALES. Discharge Planning Likely DC in 1-2 days. Will check with cards to see if patient can have EP study. Ideally, he would like MRI while here in the hospital. Per neuro, may DC once symptoms better controlled. May have MRI as outpatient, if needed. Will discuss with Dr. Arguello (Terrance Tiwari MD R3) Attending Attestation Pt. examined and case discussed with resident physicians I have read the above note and agree with the assessment/plan as discussed with me I was involved in all medical decision making for this patient Duong Arguello MD (Duong Arguello MD) Problem List: (1) Pneumonia Status: Acute Plan: Improving. Cough and SOB much better today. Imaging: * CXR: Minimal basilar atelectasis or scarring. Mild cardiomegaly Medications: * Rocephin 1g 07/29- (plan 7 day course) * Azithromycin 500mg 07/30- (plan 5 day course) * Decadron 8 mg IV x1 given yesterday. Continue with Decadron 4mg PO daily. May help if CANALES from increased icp. * Continue q4 Duoneb with PRN albuterol * Mucinex * Robitussin AC and benadryl for cough * CPT to help clear secretions (2) Cephalgia Status: Chronic Plan: Improving. Reporting continued symptoms of chronic headaches that are similar to his baseline headaches. Likely related to cough. -shunt study 07/31 negative -Neurology consulted recommendation appreciated -Pain control: [place] 5/325mg pain 1-5 [place] 10/325mg pain 6-10 DC breakthrough Dilaudid (has not required over the past 24 hours) in anticipation of DC (3) Diabetes mellitus type 2, insulin dependent Status: Chronic Plan: Patient currently on oral and insulin medications. Will decrease home long-acting insulin initially due to history of decreased appetite. -Accu-Cheks of low-dose sliding scale. 3 u ss requirement over the past 24 hours. Fasting sugar in the 330s this AM. -Increase Levemir 20 units bid, given elevated fasting sugar on decadron (4) Increased CPK level Status: Acute Plan: CPK in the 600s. Possibly 2/2 some dehydration. Awaiting CPK level this morning. Hold statin for now. (5) Anxiety Status: Chronic Plan: Report history of anxiety. - Ativan 1mg for anxiety (6) Nutrition, metabolism, and development symptoms Status: Acute Plan: Diet: Diabetic Fluids: SLIV Electrolytes: Unremarkable DVT prophylaxis: Lovenox GI prophylaxis: Protonix Chronic conditions: * BPH: Continue home finasteride * Seizures: Carbamazepine and Topamax (Terrance Tiwari MD R3) Problem Qualifiers (1) Pneumonia: Qualified Code: J18.1 - Pneumonia of lower lobe due to infectious organism, unspecified laterality (2) Cephalgia: Qualified Code: R51 - Nonintractable episodic headache, unspecified headache type Terrance Tiwari MD R3 Aug 02, 2016 06:42 Duong Arguello MD Aug 02, 2016 20:19
[2016-08-02 06:58] LABS: CKMB 5.4 NG/ML (0.5-3.6)
[2016-08-02] MEDS: RESP: ALBUTEROL 2.5 MG/IPRATROPIUM 0.5 MG NEB (SCH) NEB ×3 (07:53→20:26)
[2016-08-02] MEDS ORDERED: GUAI100S5 PO (08:32)
[2016-08-02] MEDS ORDERED: DIPH25CA PO (08:32)
[2016-08-02] MEDS ORDERED: DEXA1TAB PO (08:32)
[2016-08-02] MEDS: amLODIPine BESYLATE 5 MG TAB PO SCH (09:38)
[2016-08-02] MEDS: ISOSORBIDE MONONITRATE 30 MG TAB PO SCH (09:38)
[2016-08-02] MEDS: FINASTERIDE 5 MG TAB PO SCH (09:38)
[2016-08-02] MEDS: TOPIRAMATE 25 MG TAB PO SCH ×2 (09:38→20:09)
[2016-08-02] MEDS: HYDROCHLOROTHIAZIDE 25 MG TAB PO SCH (09:38)
[2016-08-02] MEDS: CLOPIDOGREL 75 MG TAB PO SCH (09:39)
[2016-08-02] MEDS: CARVEDILOL 12.5 MG TAB PO SCH ×2 (09:39→20:09)
[2016-08-02] MEDS: LISINOPRIL 20 MG TAB PO SCH (09:39)
[2016-08-02] MEDS: carBAMazepine 200 MG TAB PO SCH ×2 (09:39→20:09)
[2016-08-02] MEDS: ASPIRIN 81 MG CHEW TAB PO SCH (09:40)
[2016-08-02] MEDS: PANTOPRAZOLE SOD 40 MG DELAYED RELEASE TAB PO SCH (09:40)
[2016-08-02] MEDS: DEXAMETHASONE 4 MG TAB PO SCH (09:40)
[2016-08-02] MEDS: SODIUM CHLORIDE 0.9% FLUSH 5 ML FLUSH FLUSH SCH ×2 (09:40→20:10)
[2016-08-02] MEDS: INSULIN DETEMIR 100 UNITS/ML VIAL SQ SCH ×2 (09:42→20:09)
[2016-08-02] MEDS ORDERED: NORC5TAB PO (11:21)
--- NOTE | 2016-08-02 14:45 | PD.CARD.PN ---
Subjective Subjective Remarks asleep in nad Objective Vital Signs / I&O Vital Signs Date Time Temp Pulse Resp B/P Pulse Ox O2 Delivery O2 Flow Rate FiO2 08/02/16 14:10 109/70 08/02/16 12:37 96.4 68 16 129/70 96 08/02/16 11:22 17 08/02/16 10:38 17 08/02/16 08:10 95.9 60 16 120/68 95 08/02/16 04:00 96.8 68 16 140/72 95 08/02/16 00:00 97.5 69 16 132/69 94 08/01/16 20:01 92 Nasal Cannula 08/01/16 20:00 97.2 74 16 119/71 93 08/01/16 17:22 69 08/01/16 16:00 98.5 74 24 104/69 90 I/O 08/01/16 08/01/16 08/01/16 08/02/16 08/02/16 08/02/16 07:00 15:00 23:00 07:00 15:00 23:00 Intake Total 240 ml 720 ml 240 ml 480 ml Output Total 800 ml 600 ml Balance 240 ml -80 ml 240 ml -120 ml Intake Oral 240 ml 720 ml 240 ml 480 ml Output Urine Total 800 ml 600 ml # Voids 1 3 1 # Bowel Movements 0 0 0 Laboratory Laboratory Tests Test 08/02/16 05:43 White Blood Count 9.1 TH/MM3 Red Blood Count 4.42 MIL/MM3 Hemoglobin 13.2 GM/DL Hematocrit 39.5 % Mean Corpuscular Volume 89.4 FL Mean Corpuscular Hemoglobin 29.7 PG Mean Corpuscular Hemoglobin 33.3 % Concent Red Cell Distribution Width 14.6 % Platelet Count 244 TH/MM3 Mean Platelet Volume 8.5 FL Neutrophils (%) (Auto) 63.4 % Lymphocytes (%) (Auto) 23.3 % Monocytes (%) (Auto) 7.2 % Eosinophils (%) (Auto) 5.1 % Basophils (%) (Auto) 1.0 % Neutrophils # (Auto) 5.8 TH/MM3 Lymphocytes # (Auto) 2.1 TH/MM3 Monocytes # (Auto) 0.7 TH/MM3 Eosinophils # (Auto) 0.5 TH/MM3 Basophils # (Auto) 0.1 TH/MM3 CBC Comment DIFF FINAL Differential Comment Sodium Level 140 MEQ/L Potassium Level 4.2 MEQ/L Chloride Level 103 MEQ/L Carbon Dioxide Level 29.0 MEQ/L Anion Gap 8 MEQ/L Blood Urea Nitrogen 22 MG/DL Creatinine 1.34 MG/DL Estimat Glomerular Filtration 52 ML/MIN Rate Random Glucose 150 MG/DL Calcium Level 8.8 MG/DL Total Creatine Kinase 330 U/L Creatine Kinase MB 5.4 NG/ML Creatine Kinase MB % 1.6 % Imaging GENERAL: SKIN: Warm and dry. HEAD: Normocephalic. EYES: No scleral icterus. No injection or drainage. NECK: Supple, trachea midline. No JVD or lymphadenopathy. CARDIOVASCULAR: Regular rate and rhythm without murmurs, gallops, or rubs. RESPIRATORY: Breath sounds equal bilaterally. No accessory muscle use. GASTROINTESTINAL: Abdomen soft, non-tender, nondistended. MUSCULOSKELETAL: No cyanosis, or edema. BACK: Nontender without obvious deformity. No CVA tenderness. Assessment and Plan Problem List: (1) Cardiac pacemaker in situ (2) Chest pain (3) Coronary artery disease (4) Hyperlipidemia (5) Seizure disorder (6) Diabetes mellitus type 2, insulin dependent (7) S/P CATTLE BRANDER shunt (8) History of coronary artery stent placement Assessment and Plan 1.) PPM - i have reviewed [employer] rep eval of ppm and signed form confirming recent findings and parameters and faxed to radiology, awaiting Dr Alexys lafleur for risks/benefits of mri of head Problem Qualifiers (1) Chest pain: Qualified Code: R07.89 - Other chest pain Vincenzo Alex MD Aug 02, 2016 14:45
[2016-08-02] MEDS ORDERED: GADODIAMIDE PF 287 MG/ML 20 ML VIAL (for RAD MRI) IV ONE (15:31)
[2016-08-02] MEDS: LORazepam 0.5 MG TAB PO PRN (15:56)
--- NOTE | 2016-08-02 16:19 | RADRPT ---
EXAM DATE/TIME: 08/02/2016 15:04 [facility] COMPARISON: MRI BRAIN W & W/O CONTRAST, May 28, 2011, 20:39. CT BRAIN W/O CONTRAST, December 28, 2014, 21:17. SHUNT SERIES, July 31, 2016, 14:13. INDICATIONS : Cephalgia. CONTRAST: 18 cc Omniscan (gadodiamide) IV MEDICAL HISTORY : Hypertension. Diabetes mellitus type 2. Seizures. SURGICAL HISTORY : Cardiac stents, pacemaker, shunt, kidney stone removed ENCOUNTER: Subsequent ACUITY: 4-6 days PAIN SCORE: 4/10 LOCATION: cranial TECHNIQUE: Multiplanar, multisequence MRI of the brain was performed both prior to and following the administrat ion of paramagnetic contrast. FINDINGS: CEREBRUM: The ventricles are normal for age. No evidence of midline shift, mass lesion, hemorrhage or acute in farction. No extraaxial fluid collections are seen. The pituitary gland and suprasellar cistern are normal in configuration. Right frontal entrance ventriculostomy catheter remains in place with encep halomalacia around this proceeding into the foramen region. WHITE MATTER: No significant signal abnormalities are seen in the white matter. POSTERIOR FOSSA: The cerebellum and brainstem are intact. The 4th ventricle is midline. The cerebellopontine angle is unremarkable. The cerebellar tonsils are normal in position. Abnormal area of T2-weighted flair abn ormality midbrain is unchanged. DIFFUSION IMAGING: No focal areas of restricted diffusion are seen. No evidence of acute infarction. EXTRACRANIAL: The visualized portions of the orbits and paranasal sinuses are unremarkable. POST-CONTRAST: No abnormal areas of parenchymal or dural enhancement. No evidence of blood-brain barrier breakdown. CONCLUSION: Stable findings relative to remote CT scans and MRI with no acute intracranial abnormality Carrington Dave MD on August 02, 2016 at 16:13 Board Certified Radiologist. This report was verified electronically.
--- NOTE | 2016-08-02 16:20 | HHI.NSPN ---
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 The lesion is in the periaqueductal licea matter. The shunt series shows an intact shunt. He is on tegretol but the pain remains severe. Decadron in the past 2 day seems to help his headaches but the coughing is also improving. The head CT shows a stable lesion in the tectum left greater than right. The MRI shows a non enhancing flair abnormality in the tectum and periaqueductal region. Unfortunately there is also corpus callosum flair abnormality. He does complain of progressive memory loss in addition to the pain. Review of Systems General: Negative for: fever, chills, insomnia Respiratory: Positive for: cough (improving), Negative for: shortness of breath, sputum Cardiovascular: Negative for: chest pain, palpitations, orthopnea Gastrointestinal: Negative for: nausea, vomitting, diarrhea, constipation Exam Results Vital Signs Date Time Temp Pulse Resp B/P Pulse Ox O2 Delivery O2 Flow Rate FiO2 08/02/16 14:10 109/70 08/02/16 12:37 96.4 68 16 96 08/01/16 20:01 Nasal Cannula 08/01/16 09:16 21 07/29/16 21:44 3 Intake and Output 08/01/16 08/01/16 08/02/16 08:00 16:00 00:00 Intake Total 240 ml 720 ml 240 ml Output Total 800 ml Balance 240 ml -80 ml 240 ml Physical Examination Alert, more comfortable today, speech fluent, attention good, EOMI, no Parinaud symptoms, Motor dexterity good in both hands, no pronator drift, No Parker sign Lab, Micro, Other Results MRI of the brain shows a periaqueductal and left tectal flair abnormality consistent with a low grade glioma. There is additional flair abnormality in the right frontal lobe and corpus callosum. There is atrophy but no hydrocephalus. Medical Decision Making Impression and Plan 1- Tectal glioma, grossly stable in size since 2014. 2- Extensive flair abnormality extending to the corpus callosum, looks very non specific and may be related to his co mordid small vessel disease and DM. 3- Severe headaches are improving with improved pneumonia and coughing. Radiation oncology consult for the tectal glioma.11-14 gy can be a good option with the risk of radiation necrosis and cyst formation. Because of his DM and home bound status, he may be best served by resuming his fentanyl patch and follow up with his neurologist Dr Mus[place]fa. Total Minutes: 10 Abelardo Horton Aug 02, 2016 16:20
[2016-08-02] MEDS: SODIUM CHLORIDE 0.9% FLUSH 5 ML FLUSH FLUSH PRN (20:08)
[2016-08-02] MEDS: AZITHROMYCIN 250 MG TAB PO SCH (20:09)
[2016-08-02] MEDS: cefTRIAXone INJ 1,000 MG in SODIUM CHLORIDE 0.9% INJ 100 ML IV SCH (20:10)
[2016-08-02] MEDS: ENOXAPARIN SODIUM 40 MG/0.4 ML SYRINGE SQ SCH (22:26)
[2016-08-03] VITALS (8 sets, daily range): BP systolic 121–165; BP diastolic 64–87; PULSE 59–81; RESP 18–19; TEMP 95.5–96.8; O2SAT 90–96
[2016-08-03] MEDS: guaiFENesin/CODEINE SYRUP 200 MG/20 MG/10 ML CUP PO SCH ×4 (01:00→22:14)
[2016-08-03] MEDS: ACETAMINOPHEN/HYDROcodone 325 MG/5 MG TAB PO PRN (05:15)
[2016-08-03] MEDS: cloNIDine HCL 0.1 MG TAB PO SCH ×3 (05:15→21:48)
[2016-08-03] MEDS: INSULIN ASPART SUPPLEMENTAL SCALE SQ SCH ×4 (05:21→22:15)
[2016-08-03] MEDS: LORazepam 0.5 MG TAB PO PRN (05:36)
[2016-08-03] MEDS: RESP: ALBUTEROL 2.5 MG/3 ML NEB (PRN) INH ×2 (05:47→12:39)
--- NOTE | 2016-08-03 07:39 | HHI.PR ---
Review/Management Diagnosis/Plan: (1) S/P TALENT ACQUISITION ASSOCIATE shunt Plan: vp director of creative strategy shunt series- shunt intact suspect his coughing may be precipitating his headaches through meningeal shear/ stretch mri brain- stable recs stable ok to d/c from neuro and outpatient f/u with Dr. Cabral in our office (2) History of coronary artery stent placement Plan: Plavix is continued (3) Glioma of brainstem Plan: He has never received radiation. He is due for a follow up study. The last MRI was from [address] from 2014. His headache will improve if the coughing improves but we should avoid fluid overload and repeat the MRI of the brain with mauricio if possible. Plan of care will follow the MRI findings. has mri compatible pacemaker from [employer]. Subjective Subjective Comments No acute events reported No headache meghan po less cough Active Medications Current Medications Medications (Trade) Dose Ordered Sig/Michael Route Start Time Stop Time Status Last Admin (Norvasc) 10 mg DAILY PO 07/30/16 09:00 08/02/16 09:38 (TEGretol) 200 mg BID PO 07/30/16 09:00 08/02/16 20:09 (Coreg) 12.5 mg BID PO 07/30/16 09:00 08/02/16 20:09 (Proscar) 5 mg DAILY PO 07/30/16 09:00 08/02/16 09:38 (Hydrodiuril) 25 mg DAILY PO 07/30/16 09:00 08/02/16 09:38 (Imdur) 30 mg DAILY PO 07/30/16 09:00 08/02/16 09:38 (Prinivil) 20 mg DAILY PO 07/30/16 09:00 08/02/16 09:39 (Topamax) 50 mg BID PO 07/30/16 09:00 08/02/16 20:09 (Lipitor) 80 mg DAILY PO 07/30/16 09:00 Hold 07/30/16 09:14 (NS Flush) 2 ml UNSCH PRN FLUSH 07/29/16 23:45 08/02/16 20:08 (NS Flush) 2 ml BID FLUSH 07/30/16 09:00 08/02/16 20:10 (Zofran Inj) 4 mg Q6H PRN IVP 07/29/16 23:45 (Lovenox Inj) 40 mg Q24H SQ 07/29/16 23:45 08/02/16 22:26 (Vasotec Inj) 1.25 mg Q6H PRN IV 07/29/16 23:45 (D50w (Vial) Inj) 25 ml UNSCH PRN IV PUSH 07/30/16 00:00 (Glucagon Inj) 1 mg UNSCH PRN OTHER 07/30/16 00:00 (Tylenol) 650 mg Q6H PRN PO 07/30/16 00:00 07/30/16 10:33 ([place] 5-325 Mg) 1 tab Q4H PRN PO 07/30/16 00:00 08/03/16 05:15 Naloxone HCl 0.4 mg 0.4 mg UNSCH PRN IV 07/30/16 00:00 (Rocephin Inj/NS Inj) 100 ml @ 200 mls/hr Q24H IV 07/30/16 21:00 08/02/16 20:10 (Zithromax) 500 mg Q24H PO 07/30/16 21:00 08/03/16 20:59 08/02/16 20:09 (Aspirin Chew) 162 mg DAILY PO 07/30/16 09:00 08/02/16 09:40 (Protonix) 40 mg DAILY PO 07/30/16 09:00 08/02/16 09:40 (Ativan) 0.5 mg Q8H PRN PO 07/31/16 09:00 08/03/16 05:36 (Roxicodone) 10 mg Q6H PRN PO 07/31/16 12:15 (Plavix) 75 mg DAILY PO 07/31/16 13:15 08/02/16 09:39 (Catapres) 0.1 mg Q8HR PO 08/01/16 08:15 08/03/16 05:15 (Roxicodone) 10 mg Q8H PO 08/01/16 09:00 08/02/16 16:38 (Decadron) 4 mg DAILY PO 08/02/16 09:00 08/02/16 09:40 (Benadryl) 25 mg Q4H PRN PO 08/01/16 09:00 (Robitussin Ac 200-20 Mg/10 ml Liq) 10 ml Q6H PO 08/01/16 13:00 08/03/16 05:15 (Levemir Inj) 15 units BID SQ 08/02/16 09:00 08/02/16 20:09 Allergies Allergies Coded Allergies Morphine (Verified Allergy, Severe, "doctor stated i was unconscious and shaking", 07/29/16) Review of Systems All other ROS: ROS reviewed as documented in chart Exam I&O / VS 08/02/16 08/02/16 08/03/16 15:00 23:00 07:00 Intake Total 980 ml 360 ml 240 ml Balance 980 ml 360 ml 240 ml Intake Oral 980 ml 360 ml 240 ml # Voids 4 2 2 # Bowel Movements 0 0 Vital Signs Date Time Temp Pulse Resp B/P Pulse Ox O2 Delivery O2 Flow Rate FiO2 08/03/16 05:50 90 21 08/02/16 20:00 96.7 66 16 124/70 94 08/02/16 17:42 95 21 08/02/16 16:10 97.4 72 16 107/74 93 08/02/16 14:10 109/70 08/02/16 12:37 96.4 68 16 129/70 96 08/02/16 11:22 17 08/02/16 10:38 17 08/02/16 08:10 95.9 60 16 120/68 95 Exam Comments awakeox 3, no cough, eomi, od 2-1, os 4-3mm, vff, no temp tenderness, neck rom full, no focal weakness, wide based gait Objective Micro and Labs Date/Time Procedure Status Source Growth 07/29/16 20:56 Aerobic Blood Culture - Preliminary Resulted Blood Peripheral NO GROWTH IN 4 DAYS 07/29/16 20:56 Anaerobic Blood Culture - Preliminary Resulted Blood Peripheral NO GROWTH IN 4 DAYS Micah Zepeda MD Aug 03, 2016 07:39
[2016-08-03] MEDS: SODIUM CHLORIDE 0.9% FLUSH 5 ML FLUSH FLUSH SCH ×2 (08:33→21:46)
[2016-08-03] MEDS: ASPIRIN 81 MG CHEW TAB PO SCH (08:37)
[2016-08-03] MEDS: FINASTERIDE 5 MG TAB PO SCH (08:38)
[2016-08-03] MEDS: CLOPIDOGREL 75 MG TAB PO SCH (08:38)
[2016-08-03] MEDS: PANTOPRAZOLE SOD 40 MG DELAYED RELEASE TAB PO SCH (08:39)
[2016-08-03] MEDS: ISOSORBIDE MONONITRATE 30 MG TAB PO SCH (08:39)
[2016-08-03] MEDS: LISINOPRIL 20 MG TAB PO SCH (08:39)
[2016-08-03] MEDS: amLODIPine BESYLATE 5 MG TAB PO SCH (08:39)
[2016-08-03] MEDS: carBAMazepine 200 MG TAB PO SCH ×2 (08:40→21:48)
[2016-08-03] MEDS: HYDROCHLOROTHIAZIDE 25 MG TAB PO SCH (08:40)
[2016-08-03] MEDS: CARVEDILOL 12.5 MG TAB PO SCH ×2 (08:40→21:47)
[2016-08-03] MEDS: DEXAMETHASONE 4 MG TAB PO SCH (08:41)
[2016-08-03] MEDS ORDERED: ACETAMINOPHEN/HYDROcodone 325 MG/5 MG TAB PO PRN (08:45)
--- NOTE | 2016-08-03 08:50 | HHI.FPPN ---
Subjective Remarks Patient seen this morning. No acute events overnight. Intermittently desaturating to low 90s this AM, otherwise vitals essentially WNL. Not requiring O2 at this point. His main complaint this AM is of continued SOB. [place] more dizzy and weak this AM. [place] so SOB he "almost passed out". No CP at this time. Cough improved. Still has mild CANALES, but significantly improved. He has no other complaints this AM. He has been moving to and from bathroom, but otherwise not ambulating. Appetite good. No N/V. No fever. (Terrance Tiwari MD R3 ) Objective Vitals Vital Signs Date Time Temp Pulse Resp B/P Pulse Ox O2 Delivery O2 Flow Rate FiO2 08/03/16 05:50 90 21 08/02/16 20:00 96.7 66 16 124/70 94 08/02/16 17:42 95 21 08/02/16 16:10 97.4 72 16 107/74 93 08/02/16 14:10 109/70 08/02/16 12:37 96.4 68 16 129/70 96 08/02/16 11:22 17 08/02/16 10:38 17 I/O 08/02/16 08/02/16 08/02/16 08/03/16 08/03/16 08/03/16 07:00 15:00 23:00 07:00 15:00 23:00 Intake Total 480 ml 980 ml 360 ml 240 ml Output Total 600 ml Balance -120 ml 980 ml 360 ml 240 ml Intake Oral 480 ml 980 ml 360 ml 240 ml Output Urine Total 600 ml # Voids 4 2 2 # Bowel Movements 0 0 0 (Terrance Tiwari MD R3) Result Diagram: 08/02/1643 08/02/16 0543 Objective Remarks GENERAL: This is well appearing elderly male. In NAD. Sitting up in bed this AM. SKIN: No rashes, ecchymoses or lesions. Cool and dry. EYES: Pupils equal round and reactive. Extraocular motions intact. No scleral icterus. No injection or drainage. CARDIOVASCULAR: Regular rate and rhythm without murmurs, gallops, or rubs. RESPIRATORY: non-labored. Expiratory wheezing at bases bilaterally. No other adventitious sounds. GASTROINTESTINAL: Abdomen soft, non-tender. No hepato-splenomegaly, or palpable masses. No guarding. MUSCULOSKELETAL: Extremities without clubbing, cyanosis, or edema. No calf tenderness. NEUROLOGICAL: Awake and alert. Motor and sensory grossly within normal limits. Normal speech. (Terrance Tiwari MD R3) A/P Assessment and Plan 80-year-old male with a significant cardiac history including multiple stents, pacemaker. Admitted with c/o chest pain and new CANALES. Now c/o continued SOB with improving cough and CANALES. Discharge Planning Likely DC home today, given negative MRI brain. I will have PT evaluate and respiratory do walking O2 test, given his complaint of worsening SOB. I will also order repeat CXR to be done this AM. Discussed with Dr. Arguello (Terrance Tiwari MD R3) Attending Attestation Pt. examined and case discussed with resident physician I have read the above note and agree with the assessment/plan as discussed with me I was involved in all medical decision making for this patient Duong Arguello MD (Duong Arguello MD) Problem List: (1) Pneumonia Status: Acute Plan: Cough improved but still SOB. -Repeat CXR this morning -PT eval -Respiratory walking O2 test Imaging: * CXR: Minimal basilar atelectasis or scarring. Mild cardiomegaly Medications: * Rocephin 1g 07/29- (plan 7 day course) * Azithromycin 500mg 07/30- (plan 5 day course). DC after today's dose. * Decadron 4mg PO daily. May help if CANALES from increased icp. * Continue q4 Duoneb with PRN albuterol * Mucinex * Robitussin AC and benadryl for cough * CPT to help clear secretions (2) Cephalgia Status: Chronic Plan: Improving. Reporting continued symptoms of chronic headaches that are similar to his baseline headaches. Likely related to cough. -shunt study 07/31 negative -Neurology consulted recommendation appreciated -Pain control: Tylenol for pain scale 1-5/10 Change [place] to q4 PRN for pain scale 6-10/10 DC PRN Roxicodone DC Roxicodone q8 JESSICA (patient has refused this medication) (3) Diabetes mellitus type 2, insulin dependent Status: Chronic Plan: Patient currently on oral and insulin medications. Will decrease home long-acting insulin initially due to history of decreased appetite. -Accu-Cheks of low-dose sliding scale. 8 u ss requirement over the past 24 hours. Fasting sugar improved to the 140s this AM. -Cont Levemir 20 units bid, given elevated fasting sugar on decadron (4) Increased CPK level Status: Acute Plan: CPK in the 600s on admission. Trended down to 300s 08/02. Possibly 2/2 some dehydration. Hold statin for now. (5) Anxiety Status: Chronic Plan: Report history of anxiety. I believe anxiety contributing significantly to SOB. -start q8 ativan 1 mg -cont PRN ativan for severe anxiety (6) Nutrition, metabolism, and development symptoms Status: Acute Plan: Diet: Diabetic Fluids: SLIV Electrolytes: Unremarkable DVT prophylaxis: Lovenox GI prophylaxis: Protonix Chronic conditions: * BPH: Continue home finasteride * Seizures: Carbamazepine and Topamax (Terrance Tiwari MD R3) Problem Qualifiers (1) Pneumonia: Qualified Code: J18.1 - Pneumonia of lower lobe due to infectious organism, unspecified laterality (2) Cephalgia: Qualified Code: R51 - Nonintractable episodic headache, unspecified headache type Terrance Tiwari MD R3 Aug 03, 2016 08:50 Duong Arguello MD Aug 03, 2016 19:11
[2016-08-03] MEDS: RESP: ALBUTEROL 2.5 MG/IPRATROPIUM 0.5 MG NEB (SCH) NEB ×3 (08:55→20:05)
[2016-08-03] MEDS: LORazepam 1 MG TAB PO SCH ×3 (09:00→21:47)
[2016-08-03] MEDS: TOPIRAMATE 25 MG TAB PO SCH ×2 (09:00→21:49)
--- NOTE | 2016-08-03 09:32 | RADRPT ---
EXAM DATE/TIME: 08/03/2016 08:38 [facility] COMPARISON: CHEST SINGLE AP, July 29, 2016, 20:15. INDICATIONS : Chest pain. Short of breath. Cough. MEDICAL HISTORY : Hypertension. Diabetes mellitus type II. Siezures. SURGICAL HISTORY : Cardiac stents, pacemaker, shunt, kidney stone removed ENCOUNTER: Subsequent ACUITY: 1 week PAIN SCORE: 4/10 LOCATION: Left middle chest FINDINGS: Bipolar pacemaker overlies left hemithorax unchanged with atherosclerotic changes of the aorta. Lung walsh appear clear with no acute cardiopulmonary process. Minimal thin linear area of scarring is no roc in the left base and costophrenic angle. CONCLUSION: Stable chest Carrington Dave MD on August 03, 2016 at 9:30 Board Certified Radiologist. This report was verified electronically.
[2016-08-03] MEDS: INSULIN DETEMIR 100 UNITS/ML VIAL SQ SCH ×2 (11:11→22:15)
[2016-08-03] MEDS ORDERED: MISC-274 (16:04)
--- NOTE | 2016-08-03 16:07 | HHI.FF ---
Face to Face Verification Diagnosis: (1) Congestive heart failure (2) Pneumonia (3) Physical deconditioning Physical Therapy Order: Evaluate and Treat Home Health Nursing Order: Medical education Signs/symptoms of disease process CHF education Nursing assessment with vital signs Instructions: History of CHF. Now recovering from recent PNA. Check vitals with pulse ox daily. Auscultate lungs. Provide education regarding treatment of SOB. I have seen patient Sheri Yousif on 08/03/16. My clinical findings support the need for the requested home health care services because: Ltd mobility - disease progression Patient has SOB Deconditioned w/ increased weakness Med compliance is questionable Limited ability to care for self High risk of falls I certify that my clinical findings support that this patient is homebound because: Unsteady gait/balance Poor cardiac reserve Terrance Tiwari MD R3 Aug 03, 2016 16:07
--- NOTE | 2016-08-03 16:45 | PD.CARD.PN ---
Subjective Subjective Remarks alert in nad Objective Vital Signs / I&O Vital Signs Date Time Temp Pulse Resp B/P Pulse Ox O2 Delivery O2 Flow Rate FiO2 08/03/16 12:00 96.7 81 18 133/64 93 08/03/16 08:59 96 21 08/03/16 08:00 96.6 60 18 121/66 96 08/03/16 05:50 90 21 08/02/16 20:00 96.7 66 16 124/70 94 08/02/16 17:42 95 21 I/O 08/02/16 08/02/16 08/02/16 08/03/16 08/03/16 08/03/16 07:00 15:00 23:00 07:00 15:00 23:00 Intake Total 480 ml 980 ml 360 ml 240 ml Output Total 600 ml Balance -120 ml 980 ml 360 ml 240 ml Intake Oral 480 ml 980 ml 360 ml 240 ml Output Urine Total 600 ml # Voids 4 2 2 # Bowel Movements 0 0 0 Physical Exam GENERAL: SKIN: Warm and dry. HEAD: Normocephalic. EYES: No scleral icterus. No injection or drainage. NECK: Supple, trachea midline. No JVD or lymphadenopathy. CARDIOVASCULAR: Regular rate and rhythm without murmurs, gallops, or rubs. RESPIRATORY: Breath sounds equal bilaterally. No accessory muscle use. GASTROINTESTINAL: Abdomen soft, non-tender, nondistended. MUSCULOSKELETAL: No cyanosis, or edema. BACK: Nontender without obvious deformity. No CVA tenderness. 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
[2016-08-03] MEDS: cefTRIAXone INJ 1,000 MG in SODIUM CHLORIDE 0.9% INJ 100 ML IV SCH (21:47)
[2016-08-04 00:45] VITALS: BP 113/69; PULSE 61; RESP 18; TEMP 97.9; O2SAT 92
[2016-08-04] MEDS: ENOXAPARIN SODIUM 40 MG/0.4 ML SYRINGE SQ SCH (00:48)
[2016-08-04] MEDS: guaiFENesin/CODEINE SYRUP 200 MG/20 MG/10 ML CUP PO SCH ×3 (01:00→12:02)
[2016-08-04 04:05] VITALS: BP 113/66; PULSE 60; RESP 19; TEMP 96.3; O2SAT 92
[2016-08-04] MEDS: LORazepam 1 MG TAB PO SCH (05:27)
[2016-08-04] MEDS: cloNIDine HCL 0.1 MG TAB PO SCH (05:27)
[2016-08-04] MEDS: INSULIN ASPART SUPPLEMENTAL SCALE SQ SCH ×2 (05:31→12:02)
[2016-08-04 08:00] VITALS: BP 106/66; PULSE 60; RESP 18; TEMP 95.8; O2SAT 92
--- NOTE | 2016-08-04 08:04 | HHI.FPPN ---
Subjective Remarks Patient seen this morning. No acute events overnight. Vitals essentially WNL. Mr. Yousif reports SOB mildly improved compared to yesterday. He still states he is uncomfortable with discharge home. Feels SOB all the time. Worried he will pass out at home. Feels like he "can only get a spoonfull of air at a time ". CANALES and cough are both improving. No other complaints. No F/C or N/V. Objective Vitals Vital Signs Date Time Temp Pulse Resp B/P Pulse Ox O2 Delivery O2 Flow Rate FiO2 08/04/16 04:05 96.3 60 19 113/66 92 08/04/16 00:45 97.9 61 18 113/69 92 08/03/16 20:05 93 21 08/03/16 20:00 96.8 69 19 150/74 94 08/03/16 16:00 95.5 69 18 165/87 91 08/03/16 12:00 96.7 81 18 133/64 93 08/03/16 08:59 96 21 08/03/16 08:20 59 08/03/16 08:00 96.6 60 18 121/66 96 I/O 08/03/16 08/03/16 08/03/16 08/04/16 08/04/16 08/04/16 07:00 15:00 23:00 07:00 15:00 23:00 Intake Total 240 ml 960 ml 720 ml 411 ml Balance 240 ml 960 ml 720 ml 411 ml Intake Oral 240 ml 960 ml 720 ml 240 ml IV Total 171 ml # Voids 2 3 5 2 # Bowel Movements 0 0 0 0 Result Diagram: 08/02/1643 08/02/16 0543 Objective Remarks GENERAL: This is well appearing elderly male. In NAD. Sitting up in bed this AM. SKIN: No rashes, ecchymoses or lesions. Cool and dry. EYES: Pupils equal round and reactive. Extraocular motions intact. No scleral icterus. No injection or drainage. CARDIOVASCULAR: Regular rate and rhythm without murmurs, gallops, or rubs. RESPIRATORY: non-labored. Faint rales at bases that clear with coughing. No other adventitious sounds. GASTROINTESTINAL: Abdomen soft, non-tender. No hepato-splenomegaly, or palpable masses. No guarding. MUSCULOSKELETAL: Extremities without clubbing, cyanosis, or edema. No calf tenderness. NEUROLOGICAL: Awake and alert. Motor and sensory grossly within normal limits. Normal speech. A/P Assessment and Plan 80-year-old male with a significant cardiac history including multiple stents, pacemaker. Admitted with c/o chest pain and new CANALES. Now c/o continued SOB with improving cough and CANALES. Discharge Planning Plan for DC to rehab today. Order also in for HH with PT. Will discuss with Dr. Arguello Problem List: (1) Pneumonia Status: Acute Plan: Cough improved but still SOB. -Repeat CXR 08/03 showed no change from prior -PT recommends home without PT -Passed walking O2 test 08/03 Imaging: * CXR: Minimal basilar atelectasis or scarring. Mild cardiomegaly Medications: * Rocephin 1g 07/29- (plan 7 day course). DC after today's dose. * Azithromycin 500mg 07/30-08/03 (plan 5 day course). DC. * Decadron 4mg PO daily. May help if CANALES from increased icp. * Continue q4 Duoneb with PRN albuterol * Mucinex * Robitussin AC and benadryl for cough * CPT to help clear secretions (2) Cephalgia Status: Chronic Plan: Improving. Reporting continued symptoms of chronic headaches that are similar to his baseline headaches. Likely related to cough. -shunt study 07/31 negative -Neurology consulted recommendation appreciated -Pain control: Tylenol for pain scale 1-5/10 [place] q4 PRN for pain scale 6-10/10 (3) Diabetes mellitus type 2, insulin dependent Status: Chronic Plan: Patient currently on oral and insulin medications. Will decrease home long-acting insulin initially due to history of decreased appetite. -Accu-Cheks of low-dose sliding scale. 17 u ss requirement over the past 24 hours. Fasting sugar improved to the 140s this AM. -Cont Levemir 20 units bid, given elevated fasting sugar on decadron (4) Increased CPK level Status: Acute Plan: CPK in the 600s on admission. Trended down to 300s 08/02. Possibly 2/2 some dehydration. Hold statin for now. (5) Anxiety Status: Chronic Plan: Report history of anxiety. I believe anxiety contributing significantly to SOB. -ativan 1 mg q8 -cont PRN ativan for severe anxiety (6) Nutrition, metabolism, and development symptoms Status: Acute Plan: Diet: Diabetic Fluids: SLIV Electrolytes: Unremarkable DVT prophylaxis: Lovenox GI prophylaxis: Protonix Per nursing, last BM 08/02. Will make sure this is documented in the chart. Will give offer milk of Mg today. Chronic conditions: * BPH: Continue home finasteride * Seizures: Carbamazepine and Topamax Problem Qualifiers (1) Pneumonia: Qualified Code: J18.1 - Pneumonia of lower lobe due to infectious organism, unspecified laterality (2) Cephalgia: Qualified Code: R51 - Nonintractable episodic headache, unspecified headache type Terrance Tiwari MD R3 Aug 04, 2016 08:04
[2016-08-04] MEDS: RESP: ALBUTEROL 2.5 MG/IPRATROPIUM 0.5 MG NEB (SCH) NEB ×2 (08:07→13:46)
[2016-08-04] MEDS ORDERED: IPRASOL INH (08:08)
[2016-08-04] MEDS ORDERED: NEBULIZER1 MI1 (08:08)
--- NOTE | 2016-08-04 08:58 | PD.CARD.PN ---
Subjective Subjective Remarks asleep in nad Objective Vital Signs / I&O Vital Signs Date Time Temp Pulse Resp B/P Pulse Ox O2 Delivery O2 Flow Rate FiO2 08/04/16 08:00 95.8 60 18 106/66 92 08/04/16 04:05 96.3 60 19 113/66 92 08/04/16 00:45 97.9 61 18 113/69 92 08/03/16 20:05 93 21 08/03/16 20:00 96.8 69 19 150/74 94 08/03/16 16:00 95.5 69 18 165/87 91 08/03/16 12:00 96.7 81 18 133/64 93 08/03/16 08:59 96 21 I/O 08/03/16 08/03/16 08/03/16 08/04/16 08/04/16 08/04/16 07:00 15:00 23:00 07:00 15:00 23:00 Intake Total 240 ml 960 ml 720 ml 411 ml Balance 240 ml 960 ml 720 ml 411 ml Intake Oral 240 ml 960 ml 720 ml 240 ml IV Total 171 ml # Voids 2 3 5 2 # Bowel Movements 0 0 0 0 Physical Exam GENERAL: SKIN: Warm and dry. HEAD: Normocephalic. EYES: No scleral icterus. No injection or drainage. NECK: Supple, trachea midline. No JVD or lymphadenopathy. CARDIOVASCULAR: Regular rate and rhythm without murmurs, gallops, or rubs. RESPIRATORY: Breath sounds equal bilaterally. No accessory muscle use. GASTROINTESTINAL: Abdomen soft, non-tender, nondistended. MUSCULOSKELETAL: No cyanosis, or edema. BACK: Nontender without obvious deformity. No CVA tenderness. 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 d/w patient and his significant other Problem Qualifiers (1) Chest pain: Qualified Code: R07.89 - Other chest pain Vincenzo Alex MD Aug 04, 2016 08:58
[2016-08-04] MEDS ORDERED: MAGNESIUM HYDROXIDE SUSP 30 ML CUP PO ONE (09:00)
[2016-08-04] MEDS ORDERED: cefTRIAXone INJ 1,000 MG in SODIUM CHLORIDE 0.9% INJ 100 ML IV ONE (09:00)
[2016-08-04] MEDS: SODIUM CHLORIDE 0.9% FLUSH 5 ML FLUSH FLUSH SCH (09:55)
[2016-08-04] MEDS: carBAMazepine 200 MG TAB PO SCH (09:56)
[2016-08-04] MEDS: CLOPIDOGREL 75 MG TAB PO SCH (09:56)
[2016-08-04] MEDS: ASPIRIN 81 MG CHEW TAB PO SCH (09:56)
[2016-08-04] MEDS: PANTOPRAZOLE SOD 40 MG DELAYED RELEASE TAB PO SCH (09:56)
[2016-08-04] MEDS: ISOSORBIDE MONONITRATE 30 MG TAB PO SCH (09:56)
[2016-08-04] MEDS: TOPIRAMATE 25 MG TAB PO SCH (09:56)
[2016-08-04] MEDS: DEXAMETHASONE 4 MG TAB PO SCH (09:56)
[2016-08-04] MEDS: FINASTERIDE 5 MG TAB PO SCH (09:57)
[2016-08-04] MEDS: HYDROCHLOROTHIAZIDE 25 MG TAB PO SCH (09:57)
[2016-08-04] MEDS: CARVEDILOL 12.5 MG TAB PO SCH (09:57)
[2016-08-04] MEDS: amLODIPine BESYLATE 5 MG TAB PO SCH (09:57)
[2016-08-04] MEDS: LISINOPRIL 20 MG TAB PO SCH (09:57)
[2016-08-04] MEDS: INSULIN DETEMIR 100 UNITS/ML VIAL SQ SCH (09:58)
[2016-08-04 10:24] VITALS: O2SAT 94
[2016-08-04] MEDS: RESP: ALBUTEROL 2.5 MG/3 ML NEB (PRN) INH (10:24)
[2016-08-04 12:00] VITALS: BP 107/57; PULSE 67; RESP 18; TEMP 97.5; O2SAT 93
[2016-08-04] MEDS: ACETAMINOPHEN/HYDROcodone 325 MG/5 MG TAB PO PRN (14:08)
[2016-08-25] MEDS ORDERED: BENZ100 PO (11:12)
[2016-08-25] MEDS ORDERED: AMOX125S2 PO (11:12)
[2016-08-25] MEDS ORDERED: BLOOD PRESSURE1 M20 (11:24)
[2016-08-25] MEDS ORDERED: LORA10TA PO (11:28)
[2016-08-25] MEDS ORDERED: ALBU0.08 NEB (18:52)
[2016-08-30] MEDS ORDERED: PLAV75TA29 PO (15:07)
[2016-08-30] MEDS ORDERED: CARB200T PO (15:07)
[2016-08-30] MEDS ORDERED: TAMS0.4C4 PO (15:07)
--- NOTE | 2016-09-21 16:01 | HHI.DS ---
Discharge Summary Admission Date Jul 29, 2016 at 22:55 Discharge Date: Aug 04, 2016 Admitting Diagnosis (1) Pneumonia Diagnosis: Principal Plan: Cough improved but still SOB. -Repeat CXR 08/03 showed no change from prior -PT recommends home without PT -Passed walking O2 test 08/03 Imaging: * CXR: Minimal basilar atelectasis or scarring. Mild cardiomegaly Medications: * Rocephin 1g 07/29- (plan 7 day course). DC after today's dose. * Azithromycin 500mg 07/30-08/03 (plan 5 day course). DC. * Decadron 4mg PO daily. May help if CANALES from increased icp. * Continue q4 Duoneb with PRN albuterol * Mucinex * Robitussin AC and benadryl for cough * CPT to help clear secretions (2) Cephalgia Diagnosis: Secondary Plan: Improving. Reporting continued symptoms of chronic headaches that are similar to his baseline headaches. Likely related to cough. -shunt study 07/31 negative -Neurology consulted recommendation appreciated -Pain control: Tylenol for pain scale 1-5/10 Harrison q4 PRN for pain scale 6-10/10 (3) Diabetes mellitus type 2, insulin dependent Diagnosis: Secondary Plan: Patient currently on oral and insulin medications. Will decrease home long-acting insulin initially due to history of decreased appetite. -Accu-Cheks of low-dose sliding scale. 17 u ss requirement over the past 24 hours. Fasting sugar improved to the 140s this AM. -Cont Levemir 20 units bid, given elevated fasting sugar on decadron (4) Increased CPK level Diagnosis: Secondary Plan: CPK in the 600s on admission. Trended down to 300s 08/02. Possibly 2/2 some dehydration. Hold statin for now. (5) Anxiety Diagnosis: Secondary Plan: Report history of anxiety. I believe anxiety contributing significantly to SOB. -ativan 1 mg q8 -cont PRN ativan for severe anxiety (6) Nutrition, metabolism, and development symptoms Diagnosis: Secondary Plan: Diet: Diabetic Fluids: SLIV Electrolytes: Unremarkable DVT prophylaxis: Lovenox GI prophylaxis: Protonix Per nursing, last BM 08/02. Will make sure this is documented in the chart. Will give offer milk of Mg today. 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 Presented due to chest pressure that has been present over the last 4 days prior to admission. The chest pressure is localized in the substernal and associated with SOB. This chest pressure has no radiation to arm or neck and is not associated with exertion. Present continuously with no alleviating or aggravating factors but better today. Was seen in [place] 2 days ago and was diagnosed with pneumonia and treated with Augmentin which patient did take. However due to continued chest pressure and SOB plus headaches he presented here and was admitted. Denies nausea or vomiting but does endorse a nonproductive cough, diaphoresis, decreased appetite. No fevers, diarrhea, dysuria, vision changes. Has been having headaches for the last week as well that come and go. The feel like his baseline headaches and he has a history of chronic headaches. He has severe unrelenting headaches which improved after his shunt was placed but now he feels like these are the same headaches that he had prior to the shunt placement. He says they have been increasing in frequency and severity over the past few months. He has not had an MRI because of his pacemaker and he has not had his shunt checked in almost 2 years. Only dilaudid helps his pain. Patient also reports that he has been experiencing presyncopal lightheadedness over the last 2 days without any active loss of consciousness. He was admitted on 07/21/16 for near syncopal episode at which time carotid ultrasound and echocardiogram were unremarkable. He was discharged shortly after he was recommended to follow up with his chief of field operations. Troponins were unremarkable at that time as well. His troponins have been unremarkable, he reports almost a panic attack at 4 am this am otherwise he feels better with his SOB and chest pain. His headaches are now his main problem. PE at Discharge GENERAL: This is well appearing elderly male. In NAD. Sitting up in bed this AM. SKIN: No rashes, ecchymoses or lesions. Cool and dry. EYES: Pupils equal round and reactive. Extraocular motions intact. No scleral icterus. No injection or drainage. CARDIOVASCULAR: Regular rate and rhythm without murmurs, gallops, or rubs. RESPIRATORY: non-labored. Faint rales at bases that clear with coughing. No other adventitious sounds. GASTROINTESTINAL: Abdomen soft, non-tender. No hepato-splenomegaly, or palpable masses. No guarding. MUSCULOSKELETAL: Extremities without clubbing, cyanosis, or edema. No calf tenderness. NEUROLOGICAL: Awake and alert. Motor and sensory grossly within normal limits. Normal speech. Hospital Course 80 year old male with h/o hydrocephalus s/p RESEARCH ASSISTANT PROFESSOR shunt placement and CAD s/p PCI with stent in place admitted with cephalgia. Initially concern for shunt malfunction. Shunt study was WNL. Neurology was consulted. Recommended MRI. Cards was consulted to evaluate for MRI, given stent in place. Cards surgery was consulted and cleared for MRI, as patient had MRI-approved stent. He was started on pain medication and steroids for cephalgia. He c/o cough on admission , as well, and was started on anti-tussives. He was previously started on antibiotics as an outpatient for PNA. These were continued. Brain MRI was negative compared to previous study. Cephalgia continued to improve throughout his course. He complete 7 days treatment with antibiotics, however, he still c/ o [id number] dyspnea. Walking O2 test passed. Initially recommended home with for discharge, however, decision made to send to cardiopulmonary rehab after patient c/o continue dyspnea. He will need to follow up with PCP in 2 weeks. Pt Condition on Discharge: Stable Discharge Disposition: Discharge to SNF Discharge Instructions DIET: Follow Instructions for: Heart Healthy Diet, Diabetic Diet Activities you can perform: Weight Bearing as Terrance Renae MD R3 Sep 21, 2016 16:01
[2016-09-30] MEDS ORDERED: TOPA100T11 PO (13:39)
[2016-11-10] MEDS ORDERED: Insulin Syringe (15:54)
[2016-11-23] MEDS ORDERED: CARV12.52 PO (15:23)
[2016-12-23] MEDS ORDERED: Insulin Syringe (13:28)
[2016-12-28] MEDS ORDERED: AUGM875T3 PO (15:17)
[2016-12-28] MEDS ORDERED: PRED20 PO (15:17)
[2017-01-02] MEDS ORDERED: BLOOD GLUCOSE T1 TES (15:19)
== END 2016-08-04 14:16 | DRG 194 ==
LOC: NEPC 19:49 → NEDA 22:55 → HCIS 07-30 03:07 → N06A 07-31 02:57
PROVIDERS: ADMIT Family Medicine; ATTEND Family Medicine
DX: J18.9 Pneumonia, unspecified organism (principal); I45.2 Bifascicular block; G91.9 Hydrocephalus, unspecified; C71.7 Malignant neoplasm of brain stem; Z86.74 Personal history of sudden cardiac arrest; I11.9 Hypertensive heart disease without heart failure; I48.91 Unspecified atrial fibrillation; R55 Syncope and collapse; E11.9 Type 2 diabetes mellitus without complications; D64.9 Anemia, unspecified; J98.11 Atelectasis; E78.5 Hyperlipidemia, unspecified; I25.10 Atherosclerotic heart disease of native coronary artery without angina pectoris; I44.0 Atrioventricular block, first degree; G40.909 Epilepsy, unspecified, not intractable, without status epilepticus; M19.90 Unspecified osteoarthritis, unspecified site; M54.9 Dorsalgia, unspecified; G89.29 Other chronic pain; G47.30 Sleep apnea, unspecified; N40.0 Benign prostatic hyperplasia without lower urinary tract symptoms; I45.10 Unspecified right bundle-branch block; I25.2 Old myocardial infarction; F32.9 Major depressive disorder, single episode, unspecified; F41.0 Panic disorder [episodic paroxysmal anxiety]; Z79.4 Long term (current) use of insulin; Z88.5 Allergy status to narcotic agent; Z95.0 Presence of cardiac pacemaker; Z95.5 Presence of coronary angioplasty implant and graft; Z98.2 Presence of cerebrospinal fluid drainage device
CPT/HCPCS: 70250; 70553; 71010; 71020; 71275; 72040; 74000; 80048; 80053; 80156; 82550; 82552; 82607; 82948; 83605; 83735; 83880; 84443; 84484; 85025; 85027; 85610; 85652; 85730; 86140; 87040; 93005; 93970; 94150; 94620; 94640; 94664; 96374; 96375; A9579; J0456; J0696; J1100; J1170; J1650; J1815; J2405; J7030; J7050; J7512; J7613; J8540; Q9967

== ENCOUNTER 2016-08-06 05:46 | Observation (INO) | payer MEDICARE, MEDICAID ==
[~2016-08-06] VITALS: Ht 172.7 cm; Wt 96.3 kg
[2016-08-06] VITALS (11 sets, daily range): BP systolic 143–191; BP diastolic 70–102; PULSE 60–84; RESP 17–20; TEMP 96.2–98.5; O2SAT 91–98
[~2016-08-06 05:46] MED LIST changes: -AUGM500T7 PO; +DEXA1TAB PO; +DIPH25CA PO; +GUAI100S5 PO; +IPRASOL INH; +MISC-274; +NEBULIZER1 MI1; +NORC5TAB PO; -TYLETAB34 PO
[2016-08-06] MEDS ORDERED: methylPREDNISolone SOD SUCC 125 MG/2 ML VIAL IV PUSH ONE (06:00)
[2016-08-06] MEDS ORDERED: RESP: ALBUTEROL 2.5 MG/IPRATROPIUM 0.5 MG NEB (SCH) NEB ONE (06:00)
[2016-08-06] MEDS ORDERED: LORA-392 PO (06:06)
[2016-08-06] MEDS ORDERED: ACET325T PO (06:06)
[2016-08-06] MEDS ORDERED: TOPA100T11 PO (06:06)
[2016-08-06] MEDS ORDERED: CARVEDILOL 12.5 MG TAB PO ONE (06:15)
--- NOTE | 2016-08-06 06:23 | PD ---
HPI Chief Complaint: Respiratory Distress Time Seen by Provider: 05:51 Travel History International Travel<30 days: No Contact w/Intl Traveler<30days: No Traveled to known affect area: No History of Present Illness HPI This is a 80-year-old female who presents to the emergency department with shortness of breath and productive cough with white and yellow sputum that's been present for 2 days ever since he was discharged from the hospital. He was treated in the hospital for pneumonia with antibiotics, prednisone and bronchodilators. He does have a history of congestive heart failure for which she follows with Dr. Alex. He says he said some chest tightness mostly with coughing. He primarily feels like he is just not getting better at the rehabilitation. PFSH Past Medical History Hx Anticoagulant Therapy: Yes (PLAVIX) Arthritis: Yes Asthma: No Anxiety: No Depression: Yes Heart Rhythm Problems: Yes Cancer: No Cardiac Catheterization: Yes Cardiovascular Problems: Yes (STENTx3/PACEMAKER/MIx3/CARDIAC ARRESTx2) High Cholesterol: Yes Chemotherapy: No Chest Pain: Yes Congestive Heart Failure: No COPD: No Cerebrovascular Accident: No Coronary Artery Disease: Yes Diabetes: Yes (INSULIN DEPENDENT/METFORMIN) Patient Takes Glucophage: Yes Diminished Hearing: No Endocrine: Yes Gastrointestinal Disorders: No GERD: No Genitourinary: Yes ("SLOW STARTING") Headaches: Yes Hiatal Hernia: No Heparin Induced Thrombocytopen: No Hypertension: Yes Immune Disorder: No Implanted Vascular Access Dvce: Yes Kidney Stones: Yes Musculoskeletal: Yes (CHRONIC BACK PAIN) Neurologic: Yes Psychiatric: No Reproductive: No Respiratory: Yes (PNA) Immunizations Current: Yes Migraines: Yes Myocardial Infarction: Yes (X3) Radiation Therapy: No Renal Failure: No Seizures: Yes Sickle Cell Disease: No Sleep Apnea: Yes Thyroid Disease: No Ulcer: No Past Surgical History AICD: No Arteriovenous Shunt: No Body Medical Devices: "SCREWS AND PLATES" TO LEFT ARM Cardiac Surgery: Yes (PACEMAKER: FEBRUARY 2016) Coronary Stent: Yes (X3) Ear Surgery: No Endocrine Surgery: No Eye Surgery: No Genitourinary Surgery: Yes (RIGHT KIDNEY WHEN YOUNGER, LITHROTRIPSY) Gynecologic Surgery: No Insulin Pump: No Joint Replacement: No Neurologic Surgery: Yes (since 6:30 was added on) Oral Surgery: No Pacemaker: No Thoracic Surgery: No Other Surgery: Yes Social History Alcohol Use: No Tobacco Use: No Substance Use: No Allergies-Medications (Allergen,Severity, Reaction): Coded Allergies: Morphine (Verified Allergy, Severe, "doctor stated i was unconscious and shaking", 07/29/16) ?SEIZURE Reported Meds & Prescriptions Reported Meds & Active Scripts Active Nebulizer 1 Mis Mis 1 Ea .ROUTE DIRECTED Duoneb (Ipratropium-Albuterol Neb) 0.5-2.5 Mg/3 Ml Neb 1 Nebule INH Q4HR NEB Folding Walker/5" Wheels (Device) 1 Mis Mis 1 Ea .ROUTE DIRECTED [place] (Hydrocodone-Acetaminophen) 5-325 mg Tab 1-2 Tab PO Q6H PRN Dexamethasone 1 Mg Tab 1 Mg PO DAILY Take 2 tab daily x3 days, then take 1 tab daily x4 days Guaifenesin-Codeine Liq 100-10 Mg/5 Ml Soln 10 Ml PO Q6H Diphenhydramine (Diphenhydramine HCl) 25 Mg Cap 25 Mg PO Q4H PRN Nebulizer/Adult Mask (N/A) 1 Kit Kit 1 Kit .ROUTE DIRECTED Albuterol Neb (Albuterol Sulfate) 2.5 Mg/3 Ml Neb 2.5 Mg NEB Q4HR NEB While awake Ventolin Hfa 18 GM Inh (Albuterol Sulfate) 90 Mcg/Act Aer 2 Puff INH Q4-6H PRN Lancets 1 Mis Mis 1 Ea .ROUTE DIRECTED Lancets for Contour Glucometer - check blood glucose twice daily. Dispense: #200 lancets Blood Glucose Test Strips 1 Kaila Kaila 1 Ea .ROUTE DIRECTED Contour Test 100 Strips - check blood glucose twice daily. Dispense: #200 test strips Carvedilol 12.5 Mg Tab 12.5 Mg PO BID Reported Topamax (Topiramate) 100 Mg Tab 100 Mg PO BID Ativan (Lorazepam) 0.5 Mg Tab 0.5 Mg PO Q8H PRN Acetaminophen 325 Mg Tab 650 Mg PO Q4-6H PRN Acetaminophen 325 Mg Tab 650 Mg PO Q4-6H PRN Lantus Inj (Insulin Glargine) 1,000 Unit/10 Ml Vial 25 Units SQ HS Latanoprost Opth Drops (Latanoprost) 0.005% Drops 1 Drop EACH EYE HS Refrigerate until opened. Januvia (Sitagliptin Phosphate) 100 Mg Tab 100 Mg PO DAILY Finasteride 5 Mg Tab 5 Mg PO DAILY Do not crush. Crestor (Rosuvastatin Calcium) 40 Mg Tab 40 Mg PO DAILY Hydrochlorothiazide 25 Mg Tab 25 Mg PO DAILY Plavix (Clopidogrel Bisulfate) 75 Mg Tab 75 Mg PO DAILY Carbamazepine 200 Mg Tab 200 Mg PO BID Lisinopril 40 Mg Tab 20 Mg PO DAILY Glucophage (Metformin HCl) 500 Mg Tab 1,000 Mg PO BIDPC With meals Amlodipine (Amlodipine Besylate) 5 Mg Tab 10 Mg PO DAILY Review of Systems Except as stated in HPI: all other systems reviewed are Neg Physical Exam Narrative GENERAL:Well appearing, no acute distress SKIN: Warm and dry. HEAD: Atraumatic. Normocephalic. EYES: Pupils equal and round. No injection or drainage. ENT: Moist mucous membranes NECK: Trachea midline. CARDIOVASCULAR: Regular rate and rhythm. No murmur appreciated. RESPIRATORY: Scant Rales in the bilateral lung bases. GASTROINTESTINAL: Abdomen soft, non-tender, nondistended. MUSCULOSKELETAL: No obvious deformities. NEUROLOGICAL: Awake and alert. No obvious cranial nerve deficits. Moving all extremities. PSYCHIATRIC: Appropriate mood and affect; insight and judgment normal. Data Data Last Documented VS Vital Signs Date Time Temp Pulse Resp B/P Pulse Ox O2 Delivery O2 Flow Rate FiO2 08/06/16 06:03 79 18 186/88 95 Room Air 08/06/16 05:50 98.5 Orders Electrocardiogram (08/06/16 05:54) B-Type Natriuretic Peptide (08/06/16 05:54) Complete Blood Count With Diff (08/06/16 05:54) Chest, Single Ap (08/06/16 05:54) Albuterol-Ipratropium Neb (Duoneb Neb) (08/06/16 06:00) Methylprednisolone So Succ Inj (Solumedr (08/06/16 06:00) Troponin I (08/06/16 05:55) Amlodipine (Norvasc) (08/06/16 06:15) Carvedilol (Coreg) (08/06/16 06:15) Comprehensive Metabolic Panel (08/06/16 06:00) Labs Laboratory Tests Test 08/06/16 06:00 White Blood Count 9.1 TH/MM3 Red Blood Count 4.13 MIL/MM3 Hemoglobin 12.5 GM/DL Hematocrit 37.1 % Mean Corpuscular Volume 89.9 FL Mean Corpuscular Hemoglobin 30.4 PG Mean Corpuscular Hemoglobin 33.8 % Concent Red Cell Distribution Width 14.3 % Platelet Count 252 TH/MM3 Mean Platelet Volume 8.7 FL Neutrophils (%) (Auto) 70.0 % Lymphocytes (%) (Auto) 17.7 % Monocytes (%) (Auto) 5.0 % Eosinophils (%) (Auto) 6.5 % Basophils (%) (Auto) 0.8 % Neutrophils # (Auto) 6.4 TH/MM3 Lymphocytes # (Auto) 1.6 TH/MM3 Monocytes # (Auto) 0.5 TH/MM3 Eosinophils # (Auto) 0.6 TH/MM3 Basophils # (Auto) 0.1 TH/MM3 CBC Comment AUTO DIFF Sodium Level 138 MEQ/L Potassium Level 3.7 MEQ/L Chloride Level 103 MEQ/L Carbon Dioxide Level 29.2 MEQ/L Anion Gap 6 MEQ/L Blood Urea Nitrogen 20 MG/DL Creatinine 1.34 MG/DL Estimat Glomerular Filtration 52 ML/MIN Rate Random Glucose 185 MG/DL Calcium Level 8.3 MG/DL Total Bilirubin 0.2 MG/DL Aspartate Amino Transf 15 U/L (AST/SGOT) Alanine Aminotransferase 37 U/L (ALT/SGPT) Alkaline Phosphatase 140 U/L Troponin I 0.02 NG/ML B-Type Natriuretic Peptide 30 PG/ML Total Protein 7.2 GM/DL Albumin 3.3 GM/DL MDM Medical Decision Making Medical Screen Exam Complete: Yes Emergency Medical Condition: Yes Differential Diagnosis Pneumonia, congestive heart failure, viral syndrome, influenza Narrative Course This is a 80-year-old male who presents the emergency department with persistent shortness of breath and cough after being recently hospitalized for pneumonia. He is not hypoxic on arrival. He is not in any distress. He has a benign exam. Labs were obtained including a BNP and a chest x-ray was obtained. If these are reassuring at think the patient can be discharged back to his rehabilitation facility and be evaluated by his primary care physician. Margy Covarrubias MD Aug 06, 2016 06:23
[2016-08-06 06:32] LABS: AUTOMATED NEUTROPHIL # 6.4 TH/MM3 (1.8-7.7); BASOPHIL # 0.1 TH/MM3 (0-0.2); BASOPHIL % 0.8 % (0.0-2.0); EOSINOPHIL # 0.6 TH/MM3 (0-0.4); EOSINOPHIL % 6.5 % (0.0-4.0); HEMATOCRIT 37.1 % (39.0-51.0); LYMPH % 17.7 % (9.0-44.0); LYMPHOCYTE # 1.6 TH/MM3 (1.0-4.8); MEAN CELL VOLUME 89.9 FL (80.0-100.0); MEAN CORPUSCULAR HEMOGLOBIN 30.4 PG (27.0-34.0); MEAN CORPUSCULAR HGB CONC 33.8 % (32.0-36.0); PLATELET COUNT 252 TH/MM3 (150-450); RED BLOOD COUNT 4.13 MIL/MM3 (4.50-5.90); RED CELL DISTRIBUTION WIDTH 14.3 % (11.6-17.2); WHITE BLOOD COUNT 9.1 TH/MM3 (4.0-11.0)
[2016-08-06 06:40] LABS: HEMO FLAGS AUTO DIFF
--- NOTE | 2016-08-06 06:42 | RADRPT ---
EXAM DATE/TIME: 08/06/2016 06:05 [facility] COMPARISON: CHEST SINGLE AP, August 03, 2016, 8:38. INDICATIONS : Shortness of breath. MEDICAL HISTORY : Hypertension. Diabetes mellitus type II. Seizures SURGICAL HISTORY : Coronary artery stent. Pacemaker. ENCOUNTER: Initial ACUITY: 1 day PAIN SCORE: 0/10 LOCATION: Bilateral chest FINDINGS: Cardiome megaly. Clear lungs. Dual-lead pacer device from a left subclavian transvenous approach note d. Shunt catheter tubing overlies right chest. CONCLUSION: No acute disease. Juliocesar Zimmer MD on August 06, 2016 at 6:40 Board Certified Radiologist. This report was verified electronically.
[2016-08-06 06:44] LABS: ANION GAP 6 MEQ/L (5-15); BICARBONATE 29.2 MEQ/L (21.0-32.0); BLOOD UREA NITROGEN 20 MG/DL (7-18); CHLORIDE 103 MEQ/L (98-107); GLOMERULAR FILTRATION RATE 52 ML/MIN (>89); POTASSIUM 3.7 MEQ/L (3.5-5.1); SODIUM (NA) 138 MEQ/L (136-145)
[2016-08-06 06:48] LABS: ALKALINE PHOSPHATASE 140 U/L (45-117); ALT (GPT) 37 U/L (12-78); AST (GOT) 15 U/L (15-37); TOTAL BILIRUBIN ADULT 0.2 MG/DL (0.2-1.0)
[2016-08-06 07:55] LABS: BANDS 1 % (0-6); BASOPHILS 1 % (0-2); EOSINOPHILS 12 % (0-4); POLYS (SEG NEUTROPHILS) 65 % (16-70); WBC DIFF SAMPLE 100
[2016-08-06 07:56] LABS: PLATELET ESTIMATE SMEAR NORMAL (NORMAL); PLATELET MORPHOLOGY NORMAL (NORMAL); SCAN/DIFF FINAL DIFF MANUAL
--- NOTE | 2016-08-06 08:25 | PD ---
Physical Exam Date Seen by Provider: Aug 06, 2016 Data Data Last Documented VS Vital Signs Date Time Temp Pulse Resp B/P Pulse Ox O2 Delivery O2 Flow Rate FiO2 08/06/16 08:28 68 18 144/70 91 Room Air 08/06/16 07:11 2 08/06/16 05:50 98.5 Orders Electrocardiogram (08/06/16 05:54) B-Type Natriuretic Peptide (08/06/16 05:54) Complete Blood Count With Diff (08/06/16 05:54) Chest, Single Ap (08/06/16 05:54) Albuterol-Ipratropium Neb (Duoneb Neb) (08/06/16 06:00) Methylprednisolone So Succ Inj (Solumedr (08/06/16 06:00) Troponin I (08/06/16 05:55) Amlodipine (Norvasc) (08/06/16 06:15) Carvedilol (Coreg) (08/06/16 06:15) Comprehensive Metabolic Panel (08/06/16 06:00) Arterial Blood Gas (Abg) (08/06/16 08:03) Electrocardiogram (08/06/16 ) Ct Pulmonary Angiogram (08/06/16 08:27) Ckmb (Isoenzyme) Profile (08/06/16 08:41) Troponin I (08/06/16 08:41) Iohexol 350 Inj (Omnipaque 350 Inj) (08/06/16 09:16) Labs Laboratory Tests Test 08/06/16 08/06/16 06:00 08:28 White Blood Count 9.1 TH/MM3 Red Blood Count 4.13 MIL/MM3 Hemoglobin 12.5 GM/DL Hematocrit 37.1 % Mean Corpuscular Volume 89.9 FL Mean Corpuscular Hemoglobin 30.4 PG Mean Corpuscular Hemoglobin 33.8 % Concent Red Cell Distribution Width 14.3 % Platelet Count 252 TH/MM3 Mean Platelet Volume 8.7 FL Neutrophils (%) (Auto) 70.0 % Lymphocytes (%) (Auto) 17.7 % Monocytes (%) (Auto) 5.0 % Eosinophils (%) (Auto) 6.5 % Basophils (%) (Auto) 0.8 % Neutrophils # (Auto) 6.4 TH/MM3 Lymphocytes # (Auto) 1.6 TH/MM3 Monocytes # (Auto) 0.5 TH/MM3 Eosinophils # (Auto) 0.6 TH/MM3 Basophils # (Auto) 0.1 TH/MM3 CBC Comment AUTO DIFF Differential Total Cells 100 Counted Neutrophils % (Manual) 65 % Band Neutrophils % 1 % Lymphocytes % 17 % Monocytes % 4 % Eosinophils % 12 % Basophils % 1 % Neutrophils # (Manual) 6.0 TH/MM3 Differential Comment FINAL DIFF MANUAL Platelet Estimate NORMAL Platelet Morphology Comment NORMAL Red Cell Morphology Comment NORMAL Sodium Level 138 MEQ/L Potassium Level 3.7 MEQ/L Chloride Level 103 MEQ/L Carbon Dioxide Level 29.2 MEQ/L Anion Gap 6 MEQ/L Blood Urea Nitrogen 20 MG/DL Creatinine 1.34 MG/DL Estimat Glomerular Filtration 52 ML/MIN Rate Random Glucose 185 MG/DL Calcium Level 8.3 MG/DL Total Bilirubin 0.2 MG/DL Aspartate Amino Transf 15 U/L (AST/SGOT) Alanine Aminotransferase 37 U/L (ALT/SGPT) Alkaline Phosphatase 140 U/L Troponin I 0.02 NG/ML B-Type Natriuretic Peptide 30 PG/ML Total Protein 7.2 GM/DL Albumin 3.3 GM/DL Blood Gas Puncture Site RT RADIAL Blood Gas Patient Temperature 98.6 Blood Gas HCO3 27 mmol/L Blood Gas Base Excess 1.5 mmol/L Blood Gas Oxygen Saturation 88 % Arterial Blood pH 7.35 Arterial Blood Partial 50 mmHg Pressure CO2 Arterial Blood Partial 63 mmHG Pressure O2 Arterial Blood Oxygen Content 15.7 Vol % Arterial Blood 1.7 % Carboxyhemoglobin Arterial Blood Methemoglobin 2.0 % Blood Gas Hemoglobin 12.8 G/DL Oxygen Delivery Device ROOM AIR Blood Gas Inspired Oxygen 21 % [facility] Medical Record Reviewed: Yes Supervised Visit with KHUSHBU: Yes Interpretation(s) EKG: NSR at 64bpm, qt/qtc: 467/477, 1st degree av block, no acute st or t wave changes Vital Signs Date Time Temp Pulse Resp B/P Pulse Ox O2 Delivery O2 Flow Rate FiO2 08/06/16 07:13 60 18 154/76 95 Nasal Cannula 08/06/16 07:11 60 18 95 Nasal Cannula 2 08/06/16 06:03 79 18 186/88 95 Room Air 08/06/16 05:54 95 Room Air 08/06/16 05:50 98.5 82 18 191/102 95 CBC & BMP Diagram 08/06/16 06:00 Last Impressions Chest X-Ray 08/06/16 0554 Signed Impressions: Service Date/Time: Saturday, August 06, 2016 06:05 - CONCLUSION: No acute disease. Juliocesar Zimmer MD Narrative Course Patient was signed out to me by Dr. Covarrubias, pending labs and dispo Patient is a 80-year-old male who returns to the ER from [facility] for evaluation of cough/sob. Patient reports that he was recently admitted to the hospital for a few days with c/o of shortness of breath and discharged with diagnosis of pneumonia and CHF. Patient reports that he has been at the rehabilitation center for the past 2 days, reports that he was discharged with CHF and pneumonia and does follow with Dr. Alex as outpatient. Patient reports that since his discharge, he has not been feeling any better. Patient reports that he is persistently short of breath and has been wheezing and coughing. Patient reports that when he coughs, he can't stop coughing. Patient reports that he feels the same as when he was admitted to the hospital recently. Patient with no chest pain at this time, reports only shortness of breath. CBC wbc: 9.1 hgb: 12/5 hct: 37.1 platelet: 252 BMP Sodium 138 Potassium 3.7 CO2 29.2 BUN 20 Creatinine 1.34 Troponin 0.02 BNP 30 Chest x-ray: No acute disease Patient does not use home O2, patient currently 91% on room air I did review patient's previous inpatient admission, patient did have a CT pulmonary angiogram for evaluation of possible PE on July 28, 2016. On the study, there was no evidence of PE but there was new small area of patchy opacity in the right middle lobe which could represent early pneumonia. Plan to re-image patient ab% on Room air, pH 7.3, PCO2 49.7, pO2 62.5 pt is not on home oxygen, will require admission for further workup of hypoxia case reviewed with Dr Mota who accepts pt to service Diagnosis Primary Impression: Hypoxia Admitting Information Admitting Physician Requests: Admit Ruma Duke DO Aug 06, 2016 08:24
[2016-08-06 08:38] LABS: BLOOD GAS BASE EXCESS 1.5 mmol/L (-2-2); BLOOD GAS CARBOXYHEMOGLOBIN 1.7 % (0-4); BLOOD GAS HCO3 27 mmol/L (22-26); BLOOD GAS O2 HGB SATURATION 88 % (90-100); BLOOD GAS OXYGEN CONTENT 15.7 Vol % (12.0-20.0); BLOOD GAS PCO2 50 mmHg (38-42); BLOOD GAS PO2 63 mmHG (61-120); BLOOD GAS TOTAL HGB 12.8 G/DL (12.0-16.0); TEMP CORR TO 98.6
[2016-08-06 08:39] LABS: CRITICAL VALUE YES; DRAW SITE RT RADIAL; FIO2 21 %; NUMBER OF ARTERIAL PUNCTURES 1; OXYGEN DEVICE ROOM AIR; STAT YES
[2016-08-06] MEDS ORDERED: IOHEXOL 350 MG/ML 10 ML VIAL (for RAD DIAG) IV ONE (09:16)
--- NOTE | 2016-08-06 09:25 | RADRPT ---
EXAM DATE/TIME: 08/06/2016 08:51 [facility] COMPARISON: CT PULMONARY ANGIOGRAM, July 28, 2016, 16:36. INDICATIONS : Shortness of breath; chest pain, cough. IV CONTRAST: 90 cc Omnipaque 350 (iohexol) IV RADIATION DOSE: 23.17 CTDIvol (mGy) MEDICAL HISTORY : Cardiovascular disease. Seizures. Hypertension. SURGICAL HISTORY : Pacemaker. cardiac stents. ENCOUNTER: Initial ACUITY: 1 day PAIN SCALE: 4/10 LOCATION: Bilateral chest TECHNIQUE: Volumetric scanning of the chest was performed using a pulmonary embolism protocol MIP images were re constructed. Using automated exposure control and adjustment of the mA and/or kV according to patien t size, radiation dose was kept as low as reasonably achievable to obtain optimal diagnostic quality images. There is breathing artifact which degrades multiple images. FINDINGS: PULMONARY ARTERIES: No filling defects are seen in the pulmonary arteries through the segmental level. LUNGS: There is no consolidation or pneumothorax . No concerning pulmonary nodule is visualized. There is b reathing artifact throughout both lung walsh. PLEURAE: There is no pleural thickening or pleural effusion. MEDIASTINUM: There is good visualization of the great vessels of the middle mediastinum. No evidence of mediastin al or hilar adenopathy/mass. The heart size is enlarged but stable. MUSCULOSKELETAL: Within normal limits for patient age. MISCELLANEOUS: Stable nodule left lobe thyroid. No significant change compared to the prior study. CONCLUSION: 1. No evidence of PE. 2. No acute pulmonary infiltrates. 3. No significant change compared to the prior study. Duong Herring MD on August 06, 2016 at 9:19 Board Certified Radiologist. This report was verified electronically.
--- NOTE | 2016-08-06 09:33 | HHI.HP ---
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 Patient was recently admitted here on 07/29 and discharged on 08/04. He was treated for pneumonia with a 7-day course Rocephin and 5-day course of Azithromycin. Patient was then discharged to a SNF for pulmonary rehab. Patient states since being at the SNF his SOB and cough have progressively worsened. He states his cough had previously been productive for about a day and a half during his last hospital stay here however his cough has since primarily been dry. The patient had a severe coughing spell last night and again this morning prompting him to present to the ED. Denies any fevers recently. Denies any sick contacts at home. His girlfriend states she feels his symptoms have worsened since visiting friends in [place] who had a cat. Patient denies N/V or diarrhea. Denies orthopnea. Girlfriend also states the patient about two months ago was on a 9-hour train ride to visit a relative and subsequently developed left calf pain and swelling that seems to have since resolved. She states now his right leg seems to be slightly swollen but not painful. (Dwain Maldonado MD R1) Review of Systems Constitutional: DENIES: Fever, Chills, Change in appetite Eyes: DENIES: Blurred vision, Diplopia Respiratory: COMPLAINS OF: Cough, Shortness of breath, DENIES: Sputum production Cardiovascular: COMPLAINS OF: Lower Extremity Edema, DENIES: Chest pain, Dyspnea on Exertion, Orthopnea Gastrointestinal: COMPLAINS OF: Constipation, DENIES: Abdominal pain, Black stools, Bloody stools, Diarrhea, Nausea, Vomiting Neurologic: COMPLAINS OF: Headache (Dwain Maldonado MD R1) Past Family Social History Past Medical History CAD s/p stent placement x 3 [place] x 2 Bradycardia s/p pacemaker placement - Pacemaker placed in [place] in 02/2016 - Medtronic implantable cardioverter/defibrillator T2DM, insulin dependent HTN HLD Cerebral aneurysm Brainstem tumor - non-surgical 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 - MANAGER FI[employer] shunt placement due to drainage of CSF issues - chronic headaches but much worse and more frequent now Chronic back pain - seen by pain management Nephrolithiasis Large lateral abdominal wall hernia Cardiac arrest in 2010 Past Surgical History MANAGER FI[employer] SAL[employer] shunt placement 2009 Nephrolithiasis with right lateral open removal of stone Cardiac catheterization with stent placement - last in 2004 Pacemaker placed in 02/2016 Reported Medications Reported Meds & Active Scripts Active Nebulizer 1 Mis Mis 1 Ea .ROUTE DIRECTED Duoneb (Ipratropium-Albuterol Neb) 0.5-2.5 Mg/3 Ml Neb 1 Nebule INH Q4HR NEB Folding Walker/5" Wheels (Device) 1 Mis Mis 1 Ea .ROUTE DIRECTED [place] (Hydrocodone-Acetaminophen) 5-325 mg Tab 1-2 Tab PO Q6H PRN Dexamethasone 1 Mg Tab 1 Mg PO DAILY Take 2 tab daily x3 days, then take 1 tab daily x4 days Guaifenesin-Codeine Liq 100-10 Mg/5 Ml Soln 10 Ml PO Q6H Diphenhydramine (Diphenhydramine HCl) 25 Mg Cap 25 Mg PO Q4H PRN Nebulizer/Adult Mask (N/A) 1 Kit Kit 1 Kit .ROUTE DIRECTED Albuterol Neb (Albuterol Sulfate) 2.5 Mg/3 Ml Neb 2.5 Mg NEB Q4HR NEB While awake Ventolin Hfa 18 GM Inh (Albuterol Sulfate) 90 Mcg/Act Aer 2 Puff INH Q4-6H PRN Lancets 1 Mis Mis 1 Ea .ROUTE DIRECTED Lancets for Contour Glucometer - check blood glucose twice daily. Dispense: #200 lancets Blood Glucose Test Strips 1 Kaila Kaila 1 Ea .ROUTE DIRECTED Contour Test 100 Strips - check blood glucose twice daily. Dispense: #200 test strips Carvedilol 12.5 Mg Tab 12.5 Mg PO BID Reported Topamax (Topiramate) 100 Mg Tab 100 Mg PO BID Ativan (Lorazepam) 0.5 Mg Tab 0.5 Mg PO Q8H PRN Acetaminophen 325 Mg Tab 650 Mg PO Q4-6H PRN Acetaminophen 325 Mg Tab 650 Mg PO Q4-6H PRN Lantus Inj (Insulin Glargine) 1,000 Unit/10 Ml Vial 25 Units SQ HS Latanoprost Opth Drops (Latanoprost) 0.005% Drops 1 Drop EACH EYE HS Refrigerate until opened. Januvia (Sitagliptin Phosphate) 100 Mg Tab 100 Mg PO DAILY Finasteride 5 Mg Tab 5 Mg PO DAILY Do not crush. Crestor (Rosuvastatin Calcium) 40 Mg Tab 40 Mg PO DAILY Hydrochlorothiazide 25 Mg Tab 25 Mg PO DAILY Plavix (Clopidogrel Bisulfate) 75 Mg Tab 75 Mg PO DAILY Carbamazepine 200 Mg Tab 200 Mg PO BID Lisinopril 40 Mg Tab 20 Mg PO DAILY Glucophage (Metformin HCl) 500 Mg Tab 1,000 Mg PO BIDPC With meals Amlodipine (Amlodipine Besylate) 5 Mg Tab 10 Mg PO DAILY (Dwain Maldonado MD R1) Allergies: Coded Allergies: Morphine (Verified Allergy, Severe, "doctor stated i was unconscious and shaking", 07/29/16) ?SEIZURE Family History Father: healthy Mother: brain tumor - Siblings: sister with breast cancer at age 36 Social History 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 Normal speech. 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 MAEW. SKIN: Warm and dry. Ecchymotic areas both upper extremities. HEAD: Normocephalic. Atraumatic. EYES: PERRL. EOMI. No scleral icterus. No injection or drainage. ENT: No nasal drainage. Moist mucous membranes. No oral ulcers or lesions. NECK: Supple. No JVD or lymphadenopathy. No carotid bruits. CARDIOVASCULAR: Distant heart sounds. Regular rate and rhythm, no appreciable murmur. Peripheral pulses 2+. Capillary refill < 2 seconds. RESPIRATORY: Breath sounds equal bilaterally, faint rales posterior right lower lung field, otherwise clear without rales, wheezes, or rhonchi. No accessory muscle use. GASTROINTESTINAL: Abdomen soft, slightly tender in RUQ, protuberant, normal BS. Unable to appreciable for organomegaly or masses due to protuberance. No rebound tenderness. No guarding. MUSCULOSKELETAL: Nonpitting pretibial edema of right lower extremity. No edema of left lower extremity. Both calves are nontender to palpation and soft. Laboratory Laboratory Tests Test 08/06/16 08/06/16 06:00 08:28 White Blood Count 9.1 Red Blood Count 4.13 Hemoglobin 12.5 Hematocrit 37.1 Mean Corpuscular Volume 89.9 Mean Corpuscular Hemoglobin 30.4 Mean Corpuscular Hemoglobin 33.8 Concent Red Cell Distribution Width 14.3 Platelet Count 252 Mean Platelet Volume 8.7 Neutrophils (%) (Auto) 70.0 Lymphocytes (%) (Auto) 17.7 Monocytes (%) (Auto) 5.0 Eosinophils (%) (Auto) 6.5 Basophils (%) (Auto) 0.8 Neutrophils # (Auto) 6.4 Lymphocytes # (Auto) 1.6 Monocytes # (Auto) 0.5 Eosinophils # (Auto) 0.6 Basophils # (Auto) 0.1 CBC Comment AUTO DIFF Differential Total Cells 100 Counted Neutrophils % (Manual) 65 Band Neutrophils % 1 Lymphocytes % 17 Monocytes % 4 Eosinophils % 12 Basophils % 1 Neutrophils # (Manual) 6.0 Differential Comment FINAL DIFF MANUAL Platelet Estimate NORMAL Platelet Morphology Comment NORMAL Red Cell Morphology Comment NORMAL Sodium Level 138 Potassium Level 3.7 Chloride Level 103 Carbon Dioxide Level 29.2 Anion Gap 6 Blood Urea Nitrogen 20 Creatinine 1.34 Estimat Glomerular Filtration 52 Rate Random Glucose 185 Calcium Level 8.3 Total Bilirubin 0.2 Aspartate Amino Transf 15 (AST/SGOT) Alanine Aminotransferase 37 (ALT/SGPT) Alkaline Phosphatase 140 Troponin I 0.02 B-Type Natriuretic Peptide 30 Total Protein 7.2 Albumin 3.3 Blood Gas Puncture Site RT RADIAL Blood Gas Patient Temperature 98.6 Blood Gas HCO3 27 Blood Gas Base Excess 1.5 Blood Gas Oxygen Saturation 88 Arterial Blood pH 7.35 Arterial Blood Partial 50 Pressure CO2 Arterial Blood Partial 63 Pressure O2 Arterial Blood Oxygen Content 15.7 Arterial Blood 1.7 Carboxyhemoglobin Arterial Blood Methemoglobin 2.0 Blood Gas Hemoglobin 12.8 Oxygen Delivery Device ROOM AIR Blood Gas Inspired Oxygen 21 (Dwain Maldonado MD R1) Result Diagram: 08/06/16 0600 08/06/16 0600 Imaging Last [address] Angiography 08/06/16 0827 Signed Impressions: Service Date/Time: Saturday, August 06, 2016 08:51 - CONCLUSION: 1. No evidence of PE. 2. No acute pulmonary infiltrates. 3. No significant change compared to the prior study. Duong Herring MD Chest X-Ray 08/06/16 0554 Signed Impressions: Service Date/Time: Saturday, August 06, 2016 06:05 - CONCLUSION: No acute disease. Juliocesar Zimmer MD (Dwain Maldonado MD R1) Septic Shock Reassessment Heart: Regular rate and rhythm Lungs: Clear Skin: Warm, Dry Peripheral Pulses: Bounding Right Radial Bounding Left Radial Bounding Right Dorsalis Pedis Bounding Left Dorsalis Pedis Bounding Right Posterior Tibial Bounding Left Posterior Tibial Capillary Refill: <2 seconds (Dwain Maldonado MD R1) Assessment and Plan Assessment and Plan 80 year old male with PMH significant for CAD s/p stent placement x 3 and pacemaker placement, HTN, insulin-dependent DM presents to the ED due to ongoing and worsening shortness of breath and nonproductive cough. He will be admitted and managed for the following: Code Status Full code Discussed Condition With Dr. Jos Costa (Dwain Maldonado MD R1) Attending Attestation THIS CASE WAS DISCUSSED WITH THE RESIDENT PHYSICIANS. I HAVE REVIEWED THE RECORD AND AGREE WITH THE ABOVE NOTE AND PLAN OF CARE WAS DISCUSSED. I HAVE AUTHORIZED THE ORDER FOR ADMISSION TO AN IN-PATIENT STATUS. (Duong Arguello MD) Problem List: (1) Bronchitis Status: Acute Plan: - Etiology for patient's cough at this time is either acute bronchitis, post-infectious cough, or medication-related adverse effects particularly due to his ODILIA-I - No systemic symptoms present - Afebrile, vitals wnls, no leukocytosis - Lungs are CTAB with exception of faint right basilar rales - Cough sounds nonproductive - ABG shows mild respiratory acidosis with O2 sat of 88 - CXR no acute disease - CTA no evidence of PE, no acute pulmonary infiltrates - Duonebs 1 amp q6h scheduled - Albuterol nebs q2h prn SOB/wheezing - Flovent 110 mcg 1 puff BID - Suppress cough for symptom mgmt with Robitussin AC 200/20 10mL po q6h prn - Discontinue ODILIA-Is - Physical therapy - O2 via NC if needed, wean as tolerated to keep O2 sats > 92% - Respiratory walk test tomorrow AM - CM consult to assist if patient needs inpatient rehab (2) HTN (hypertension) Status: Chronic Plan: - BP 191/102 on admission - Patient had not taken his morning medications - BPs now within normal range for his age - Continue home Amlodipine, Coreg, and HCTZ - Discontinue lisinopril; start Losartan - Vitals q4h (3) Diabetes mellitus type 2, insulin dependent Status: Chronic Plan: Hold home regimen: - 25 units of Lantus hs - Metformin 1000 mg po BID - Januvia 100 mg po daily While inpatient: - Accuchecks ACHS - Levemir 10 units hs - Low-dose ISS - Increase basal if needed (4) BALDOMERO (acute kidney injury) Status: Acute Plan: - Cr 1.34 on admission; baseline ~1.20 - Encourage adequate oral hydration - Continue to monitor renal function (5) Cephalgia Status: Chronic Plan: He reports continued symptoms of chronic headaches that are similar to his baseline headaches. No meningeal signs on evaluation. Low suspicion for complication with [employer]NA[employer] shunt at this time. Pain control: - Tylenol 650 mg po q4h prn headache - [place] 5/325 1 tab po q6h prn pain 9-10 (6) Seizure disorder Status: Chronic Plan: Continue home Keppra and carbamazepine (7) Nutrition, metabolism, and development symptoms Status: Acute Plan: Fluids: none Electrolytes: WNLs Nutrition: Diabetic diet DVT PPX: SCDs. Will add chemical anticoagulation if anticipating a longer hospital stay HLD: Continue Lipitor S/p stent placement: Continue Plavix BPH: Continue Finasteride (Dwain Maldonado MD R1) Physician Certification 2 Midnight Certification Type: Admission for Inpatient Services Order for Inpatient Services The services are ordered in accordance with Medicare regulations or non- Medicare payer requirements, as applicable. In the case of services not specified as inpatient-only, they are appropriately provided as inpatient services in accordance with the 2-midnight benchmark. Estimated LOS (days): 1 days is the estimated time the patient will need to remain in the hospital, assuming treatment plan goals are met and no additional complications. Post-Hospital Plan: Not yet determined (Dwain Maldonado MD R1) Dwain Maldonado MD R1 Aug 06, 2016 09:33 Duong Arguello MD Aug 06, 2016 20:41
[2016-08-06] MEDS ORDERED: NALOXONE HCL 0.4 MG/ML AMP IV PRN (10:30)
[2016-08-06] MEDS: carBAMazepine 200 MG TAB PO SCH ×2 (10:30→19:39)
[2016-08-06] MEDS ORDERED: RESP: ALBUTEROL 2.5 MG/3 ML NEB (PRN) NEB (10:30)
[2016-08-06] MEDS ORDERED: SODIUM CHLORIDE 0.9% FLUSH 5 ML FLUSH FLUSH PRN (10:30)
[2016-08-06] MEDS: SODIUM CHLORIDE 0.9% FLUSH 5 ML FLUSH FLUSH SCH ×2 (10:30→19:40)
[2016-08-06] MEDS: RESP: ALBUTEROL 2.5 MG/IPRATROPIUM 0.5 MG NEB (SCH) NEB ×3 (11:14→21:58)
[2016-08-06] MEDS ORDERED: ACETAMINOPHEN 325 MG TAB PO ONE (11:15)
[2016-08-06] MEDS: CLOPIDOGREL 75 MG TAB PO SCH (11:25)
[2016-08-06] MEDS: INSULIN ASPART SUPPLEMENTAL SCALE SQ SCH ×3 (11:29→19:38)
[2016-08-06] MEDS: FLUTICASONE PROPIONATE 110 MCG/ACT 12 GM INHALER INH SCH ×2 (12:06→19:40)
[2016-08-06] MEDS: TOPIRAMATE 100 MG TAB PO SCH ×2 (12:06→19:38)
[2016-08-06] MEDS: FINASTERIDE 5 MG TAB PO SCH (12:06)
[2016-08-06] MEDS: ATORVASTATIN 80 MG TAB PO SCH (12:06)
--- NOTE | 2016-08-06 12:27 | EKG ---
Date Performed: 08/06/2016 Time Performed: 06:32:21 PTAGE: 80 years EKG: Sinus rhythm WITH FIRST DEGREE AV BLOCK RIGHT BUNDLE BRANCH BLOCK LEFT ANTERIOR FASCICULAR BLOCK MINIMAL VOLTAGE CRITERIA FOR LVH, CONSIDER NORMAL VARIANT ABNORMAL ECG PREVIOUS TRACING 07/30/2016 @06.35.44 DOCTOR: Ezequiel Mota Interpretating Date/Time 08/06/2016 12:26:09
[2016-08-06] MEDS: guaiFENesin/CODEINE SYRUP 200 MG/20 MG/10 ML CUP PO PRN ×2 (16:43→22:47)
[2016-08-06 16:56] LABS: CREATINE KINASE 298 U/L (39-308)
[2016-08-06 16:57] LABS: CKMB 4.6 NG/ML (0.5-3.6)
[2016-08-06] MEDS: ACETAMINOPHEN/HYDROcodone 325 MG/5 MG TAB PO PRN (18:03)
[2016-08-06] MEDS: ACETAMINOPHEN 325 MG TAB PO PRN (19:38)
[2016-08-06] MEDS: CARVEDILOL 12.5 MG TAB PO SCH (19:39)
--- NOTE | 2016-08-06 20:40 | HHI.HP ---
[facility] Service Family Medicine Primary Care Physician Duong Arguello MD Admission Diagnosis Hypoxia Diagnoses: (1) Bronchitis (2) HTN (hypertension) (3) Diabetes mellitus type 2, insulin dependent (4) BALDOMERO (acute kidney injury) (5) Cephalgia (6) Seizure disorder (7) Nutrition, metabolism, and development symptoms International Travel<30 Days: No Contact w/Intl Traveler<30days: No Known Affected Area: No History of Present Illness 80 yo M presenting to the ED with shortness of breath and cough progressive x3 days. He was recently hospitalized at [place] and treated for pneumonia as well as had a neurological evaluation of his shunt and known brain stem tumor ( stable). He was treated with IV antibiotics and was discharged on 08/04 to pulmonary rehab on room air. While at the rehab facility, he began to have a worsening cough and felt short of breath with worsening headache. He was brought to the ED and found to have an O2 saturation of 88% on ABG. He had a CXR that was clear and CTA to rule out PE (negative). He denies fevers or chills, denies nausea/vomiting, denies chest pain, denies palpitations He endorses headache, cough that has become productive of clear sputum. Review of Systems Constitutional: COMPLAINS OF: Fatigue, Dizziness, DENIES: Fever, Chills Eyes: DENIES: Blurred vision Respiratory: COMPLAINS OF: Cough, Sputum production, Shortness of breath, DENIES: Wheezing Cardiovascular: DENIES: Chest pain, Palpitations Gastrointestinal: COMPLAINS OF: Abdominal pain, DENIES: Constipation, Diarrhea , Nausea, Vomiting Musculoskeletal: COMPLAINS OF: Joint pain Past Family Social History Past Medical History CAD s/p stent placement x 3 [place] x 2 Bradycardia s/p pacemaker placement - Pacemaker placed in [place] in 02/2016 - Medtronic implantable cardioverter/defibrillator T2DM, insulin dependent HTN HLD Cerebral aneurysm Brainstem tumor - non-surgical 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 - 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 STRATEGIST shunt placement due to drainage of CSF issues - chronic headaches but much worse and more frequent now Chronic back pain - seen by pain management Nephrolithiasis Large lateral abdominal wall hernia Cardiac arrest in 2010 Past Surgical History 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 STRATEGIST shunt placement 2009 Nephrolithiasis with right lateral open removal of stone Cardiac catheterization with stent placement - last in 2004 Pacemaker placed in 02/2016 Allergies: Coded Allergies: Morphine (Verified Allergy, Severe, "doctor stated i was unconscious and shaking", 1/20/17) ?SEIZURE Family History Father: healthy Mother: brain tumor - Siblings: sister with breast cancer at age 36 Social History 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 Tobacco: never Etoh: never Illicit drug use: none Physical Exam Vital Signs Vital Signs Date Time Temp Pulse Resp B/P Pulse Ox O2 Delivery O2 Flow Rate FiO2 08/06/16 16:00 97.1 84 19 157/78 95 08/06/16 12:00 78 20 143/73 98 Nasal Cannula 08/06/16 11:14 95 Nasal Cannula 2.00 08/06/16 09:30 61 18 156/81 94 Nasal Cannula 08/06/16 08:28 68 18 144/70 91 Room Air 08/06/16 07:13 60 18 154/76 95 Nasal Cannula 08/06/16 07:11 60 18 95 Nasal Cannula 2 08/06/16 06:03 79 18 186/88 95 Room Air 08/06/16 05:54 95 Room Air 08/06/16 05:50 98.5 82 18 191/102 95 Physical Exam GENERAL: NAD, falls asleep easily NEURO: AOx3. Normal speech. 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 SKIN: Warm and dry. Ecchymotic areas both upper extremities. HEAD: Normocephalic. Atraumatic. EYES: PERRL. EOMI. No scleral icterus. No injection or drainage. NECK: Supple. No JVD or lymphadenopathy. No carotid bruits. CARDIOVASCULAR: Distant heart sounds. Regular rate and rhythm, no appreciable murmur. Peripheral pulses 2+. Capillary refill < 2 seconds. RESPIRATORY: Breath sounds equal bilaterally, faint rales posterior right lower lung field, otherwise clear without rales, wheezes, or rhonchi. No accessory muscle use. GASTROINTESTINAL: Abdomen soft, slightly tender in RUQ, protuberant, normal BS. Unable to appreciable for organomegaly or masses due to protuberance. No rebound tenderness. No guarding. MUSCULOSKELETAL: Nonpitting pretibial edema of right lower extremity. No edema of left lower extremity. Both calves are nontender to palpation and soft. Laboratory Laboratory Tests Test 08/06/16 08/06/16 08/06/16 06:00 08:28 15:37 White Blood Count 9.1 Red Blood Count 4.13 Hemoglobin 12.5 Hematocrit 37.1 Mean Corpuscular Volume 89.9 Mean Corpuscular Hemoglobin 30.4 Mean Corpuscular Hemoglobin 33.8 Concent Red Cell Distribution Width 14.3 Platelet Count 252 Mean Platelet Volume 8.7 Neutrophils (%) (Auto) 70.0 Lymphocytes (%) (Auto) 17.7 Monocytes (%) (Auto) 5.0 Eosinophils (%) (Auto) 6.5 Basophils (%) (Auto) 0.8 Neutrophils # (Auto) 6.4 Lymphocytes # (Auto) 1.6 Monocytes # (Auto) 0.5 Eosinophils # (Auto) 0.6 Basophils # (Auto) 0.1 CBC Comment AUTO DIFF Differential Total Cells 100 Counted Neutrophils % (Manual) 65 Band Neutrophils % 1 Lymphocytes % 17 Monocytes % 4 Eosinophils % 12 Basophils % 1 Neutrophils # (Manual) 6.0 Differential Comment FINAL DIFF MANUAL Platelet Estimate NORMAL Platelet Morphology Comment NORMAL Red Cell Morphology Comment NORMAL Sodium Level 138 Potassium Level 3.7 Chloride Level 103 Carbon Dioxide Level 29.2 Anion Gap 6 Blood Urea Nitrogen 20 Creatinine 1.34 Estimat Glomerular Filtration 52 Rate Random Glucose 185 Calcium Level 8.3 Total Bilirubin 0.2 Aspartate Amino Transf 15 (AST/SGOT) Alanine Aminotransferase 37 (ALT/SGPT) Alkaline Phosphatase 140 Troponin I 0.02 LESS THAN 0.02 B-Type Natriuretic Peptide 30 Total Protein 7.2 Albumin 3.3 Blood Gas Puncture Site RT RADIAL Blood Gas Patient Temperature 98.6 Blood Gas HCO3 27 Blood Gas Base Excess 1.5 Blood Gas Oxygen Saturation 88 Arterial Blood pH 7.35 Arterial Blood Partial 50 Pressure CO2 Arterial Blood Partial 63 Pressure O2 Arterial Blood Oxygen Content 15.7 Arterial Blood 1.7 Carboxyhemoglobin Arterial Blood Methemoglobin 2.0 Blood Gas Hemoglobin 12.8 Oxygen Delivery Device ROOM AIR Blood Gas Inspired Oxygen 21 Total Creatine Kinase 298 Creatine Kinase MB 4.6 Result Diagram: 08/06/16 0600 08/06/16 06 Imaging Last [address] Angiography 08/06/16 08 Signed Impressions: Service Date/Time: Saturday, August 06, 2016 08:51 - CONCLUSION: 1. No evidence of PE. 2. No acute pulmonary infiltrates. 3. No significant change compared to the prior study. Duong Herring MD Chest X-Ray 08/06/16 0564 Signed Impressions: Service Date/Time: Saturday, August 06, 2016 06:05 - CONCLUSION: No acute disease. Juliocesar Zimmer MD Assessment and Plan Assessment and Plan 80 year old male with PMH significant for CAD s/p stent placement x 3 and pacemaker placement, HTN, insulin-dependent DM presents to the ED due to ongoing and worsening shortness of breath and nonproductive cough. He will be admitted and managed for the following: Problem List: (1) Bronchitis Status: Acute Plan: No evidence of pneumonia (no leukocytosis, afebrile, CT chest without infiltrate, negative CXR) Likely chronic bronchitis vs. post-infectious cough, or medication-related adverse effects particularly due to his ODILIA-I - ABG shows mild respiratory acidosis with O2 sat of 88 - CXR no acute disease - CTA no evidence of PE, no acute pulmonary infiltrates - Duonebs 1 amp q6h scheduled - Albuterol nebs q2h prn SOB/wheezing - Flovent 110 mcg 1 puff BID - Suppress cough for symptom mgmt with Robitussin AC 200/20 10mL po q6h prn - Discontinue ODILIA-Is - Physical therapy - O2 via NC if needed, wean as tolerated to keep O2 sats > 92% - Respiratory walk test tomorrow AM - CM consult to assist if patient needs inpatient rehab (2) HTN (hypertension) Status: Chronic Plan: - BP 191/102 on admission - Patient had not taken his morning medications - BPs now within normal range for his age - Continue home Amlodipine, Coreg, and HCTZ - Discontinue lisinopril; start Losartan - Vitals q4h (3) Diabetes mellitus type 2, insulin dependent Status: Chronic Plan: Hold home regimen: - 25 units of Lantus hs - Metformin 1000 mg po BID - Januvia 100 mg po daily While inpatient: - Accuchecks ACHS - Levemir 10 units hs - Low-dose ISS - Increase basal if needed (4) BALDOMERO (acute kidney injury) Status: Acute Plan: - Cr 1.34 on admission; baseline ~1.20 - Encourage adequate oral hydration - Continue to monitor renal function (5) Cephalgia Status: Chronic Plan: He reports continued symptoms of chronic headaches that are similar to his baseline headaches. No meningeal signs on evaluation. Low suspicion for complication with 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 STRATEGIST shunt at this time. Pain control: - Tylenol 650 mg po q4h prn headache - [place] 5/325 1 tab po q6h prn pain 9-10 (6) Seizure disorder Status: Chronic Plan: Continue home Keppra and carbamazepine (7) Nutrition, metabolism, and development symptoms Status: Acute Plan: Fluids: none Electrolytes: WNLs Nutrition: Diabetic diet DVT PPX: SCDs. Will add chemical anticoagulation if anticipating a longer hospital stay HLD: Continue Lipitor S/p stent placement: Continue Plavix BPH: Continue Finasteride Physician Certification 2 Midnight Certification Type: Admission for Inpatient Services Order for Inpatient Services The services are ordered in accordance with Medicare regulations or non- Medicare payer requirements, as applicable. In the case of services not specified as inpatient-only, they are appropriately provided as inpatient services in accordance with the 2-midnight benchmark. Estimated LOS (days): 2 2 days is the estimated time the patient will need to remain in the hospital, assuming treatment plan goals are met and no additional complications. Post-Hospital Plan: Not yet determined Duong Arguello MD Aug 06, 2016 20:40
[2016-08-06] MEDS ORDERED: INSULIN DETEMIR 100 UNITS/ML VIAL SQ SCH (21:00)
[2016-08-06] MEDS ORDERED: LATANOPROST 0.005% OPHT SOLN 2.5 ML BTL EACH EYE SCH (21:00)
[2016-08-07 04:00] VITALS: BP 158/77; PULSE 62; RESP 17; TEMP 96.1; O2SAT 94
[2016-08-07] MEDS: RESP: ALBUTEROL 2.5 MG/IPRATROPIUM 0.5 MG NEB (SCH) NEB ×3 (04:24→15:28)
[2016-08-07 04:46] LABS: AUTOMATED NEUTROPHIL # 6.8 TH/MM3 (1.8-7.7); BASOPHIL % 0.3 % (0.0-2.0); EOSINOPHIL # 0.4 TH/MM3 (0-0.4); EOSINOPHIL % 4.9 % (0.0-4.0); HEMATOCRIT 34.9 % (39.0-51.0); HEMO FLAGS DIFF FINAL; LYMPH % 13.8 % (9.0-44.0); LYMPHOCYTE # 1.2 TH/MM3 (1.0-4.8); MEAN CELL VOLUME 89.1 FL (80.0-100.0); MEAN CORPUSCULAR HEMOGLOBIN 30.1 PG (27.0-34.0); MEAN CORPUSCULAR HGB CONC 33.7 % (32.0-36.0); PLATELET COUNT 241 TH/MM3 (150-450); RED BLOOD COUNT 3.91 MIL/MM3 (4.50-5.90); RED CELL DISTRIBUTION WIDTH 14.3 % (11.6-17.2)
[2016-08-07 05:08] LABS: BICARBONATE 27.6 MEQ/L (21.0-32.0); POTASSIUM 3.9 MEQ/L (3.5-5.1)
[2016-08-07] MEDS: INSULIN ASPART SUPPLEMENTAL SCALE SQ SCH ×3 (06:34→16:00)
[2016-08-07 08:00] VITALS: BP 148/82; PULSE 63; RESP 17; TEMP 96.8; O2SAT 93
[2016-08-07] MEDS ORDERED: COZA25TA PO (08:52)
[2016-08-07] MEDS: ATORVASTATIN 80 MG TAB PO SCH (08:53)
[2016-08-07] MEDS: FINASTERIDE 5 MG TAB PO SCH (08:53)
[2016-08-07] MEDS: SODIUM CHLORIDE 0.9% FLUSH 5 ML FLUSH FLUSH SCH (08:54)
[2016-08-07] MEDS: CARVEDILOL 12.5 MG TAB PO SCH (08:54)
[2016-08-07] MEDS: TOPIRAMATE 100 MG TAB PO SCH (08:54)
[2016-08-07] MEDS: CLOPIDOGREL 75 MG TAB PO SCH (08:54)
[2016-08-07] MEDS: carBAMazepine 200 MG TAB PO SCH (08:54)
--- NOTE | 2016-08-07 08:54 | HHI.DCPOC ---
Discharge Care Plan Diagnosis: (1) Hypoxia (2) VF (ventricular fibrillation) (3) Bronchitis Goals to Promote Your Health * To prevent worsening of your condition and complications * To maintain your health at the optimal level Directions to Meet Your Goals Take your medications as prescribed Follow your dietary instruction Follow activity as directed Keep your appointments as scheduled Take your immunizations and boosters as scheduled If your symptoms worsen call your PCP, if no PCP go to Urgent Care Center or Emergency Room Smoking is Dangerous to Your Health. Avoid second hand smoke Call the 24-hour hour crisis hotline for domestic abuse at Flor Turner MD R3 Aug 07, 2016 08:54
[2016-08-07] MEDS: FLUTICASONE PROPIONATE 110 MCG/ACT 12 GM INHALER INH SCH (08:55)
[2016-08-07] MEDS: ACETAMINOPHEN/HYDROcodone 325 MG/5 MG TAB PO PRN (08:57)
[2016-08-07] MEDS ORDERED: predniSONE 20 MG TAB PO SCH (09:00)
[2016-08-07] MEDS ORDERED: HYDROCHLOROTHIAZIDE 25 MG TAB PO SCH (09:00)
[2016-08-07] MEDS ORDERED: LOSARTAN 25 MG TAB PO SCH (09:00)
[2016-08-07 09:31] VITALS: O2SAT 95
--- NOTE | 2016-08-07 10:11 | HHI.FPPN ---
Subjective Remarks Patient seen and examined this am. No overnight events. Required oxygen overnight, but not currently on nasal canula. He reports cough, that improves with cough syrup. Had CANALES this am. Some SOB when he coughs. Overall feels better. Does not want to go to pulmonary rehab, reports no one takes care of him at night. When he coughs, it is overwhelming, he gets very anxious during his cough feeling like hes dying, this makes his cough worse. (Flor Turner MD R3) Objective Vitals Vital Signs Date Time Temp Pulse Resp B/P Pulse Ox O2 Delivery O2 Flow Rate FiO2 08/07/16 09:31 95 Nasal Cannula 2.00 08/07/16 08:00 96.8 63 17 148/82 93 08/07/16 04:00 96.1 62 17 158/77 94 08/06/16 23:55 96.2 65 17 145/75 95 08/06/16 21:58 95 Nasal Cannula 2.00 08/06/16 19:37 95 Nasal Cannula 2.00 08/06/16 19:30 96.8 70 17 164/83 95 08/06/16 16:00 97.1 84 19 157/78 95 08/06/16 12:00 78 20 143/73 98 Nasal Cannula 08/06/16 11:14 95 Nasal Cannula 2.00 I/O 08/06/16 08/06/16 08/06/16 08/07/16 08/07/16 08/07/16 07:00 15:00 23:00 07:00 15:00 23:00 Intake Total 480 ml 480 ml Balance 480 ml 480 ml Intake Oral 480 ml 480 ml # Voids 2 2 # Bowel Movements 0 0 (Flor Turner MD R3) Result Diagram: 08/07/16 0355 08/07/16 [address] Angiography 08/06/16826 Signed Impressions: Service Date/Time: Saturday, August 06, 2016 08:51 - CONCLUSION: 1. No evidence of PE. 2. No acute pulmonary infiltrates. 3. No significant change compared to the prior study. Duong Herring MD Chest X-Ray 08/06/16 0557 Signed Impressions: Service Date/Time: Saturday, August 06, 2016 06:05 - CONCLUSION: No acute disease. Juliocesar Zimmer MD Objective Remarks GENERAL: NAD, sitting comfortably in bed NEURO: AOx3. Normal speech. information technology professor grossly intact. SKIN: Warm and dry. Ecchymotic areas both upper extremities. HEAD: Normocephalic. Atraumatic. EYES: PERRL. EOMI. No scleral icterus. No injection or drainage. NECK: Supple. No JVD or lymphadenopathy. No carotid bruits. CARDIOVASCULAR: Distant heart sounds. Regular rate and rhythm, no appreciable murmur. Peripheral pulses 2+. Capillary refill < 2 seconds. RESPIRATORY: Breath sounds equal bilaterally, clear without rales, wheezes, or rhonchi. No accessory muscle use. GASTROINTESTINAL: Abdomen soft, slightly tender in RUQ, protuberant, normal BS. Unable to appreciable for organomegaly or masses due to protuberance. No rebound tenderness. No guarding. MUSCULOSKELETAL: Nonpitting pretibial edema of right lower extremity. No edema of left lower extremity. Both calves are nontender to palpation and soft. ( Flor Turner MD R3) A/P Assessment and Plan 80 year old male with PMH significant for CAD s/p stent placement x 3 and pacemaker placement, HTN, insulin-dependent DM presents to the ED due to ongoing and worsening shortness of breath and nonproductive cough. He will be admitted and managed for the following: Discharge Planning d/c this afternoon after oxygen walk test. Attending Attestation Case seen and discussed with Igor Gaviria, Joel (Flor Turner MD R3) Attending Attestation Patient examined and case discussed with resident physicians I have read the above note and agree with the assessment/plan as discussed with me I was involved in all medical decision making for this patient Duong Arguello M.D. (Duong Arguello MD) Problem List: (1) Bronchitis Status: Acute Plan: No evidence of pneumonia (no leukocytosis, afebrile, CT chest without infiltrate , negative CXR) Likely chronic bronchitis vs. post-infectious cough, &/or medication-related adverse effects particularly due to his ODILIA-I - ABG shows mild respiratory acidosis with O2 sat of 88 - CXR no acute disease - CTA no evidence of PE, no acute pulmonary infiltrates - Duonebs 1 amp q6h scheduled - Albuterol nebs q2h prn SOB/wheezing - Flovent 110 mcg 1 puff BID - Suppress cough for symptom mgmt with Robitussin AC 200/20 10mL po q6h prn, alternate with tessalon pearls - Discontinue ODILIA-Is - Physical therapy - O2 via NC if needed, wean as tolerated to keep O2 sats > 92% - Respiratory walk test pending - Patient does not want pulm rehab, strongly encouraged (2) HTN (hypertension) Status: Chronic Plan: - BPs now within normal range for his age - Continue home Amlodipine, Coreg, and HCTZ - Discontinue lisinopril; started Losartan - Vitals q4h (3) Diabetes mellitus type 2, insulin dependent Status: Chronic Plan: Hold home regimen: - 25 units of Lantus hs - Metformin 1000 mg po BID - Januvia 100 mg po daily While inpatient: - Accuchecks ACHS - Levemir 10 units hs - Low-dose ISS - Increase basal if needed (4) BALDOMERO (acute kidney injury) Status: Acute Plan: - Cr 1.34 on admission, improved today; baseline ~1.20 - Encourage adequate oral hydration - Continue to monitor renal function (5) Cephalgia Status: Chronic Plan: He reports continued symptoms of chronic headaches that are similar to his baseline headaches. No meningeal signs on evaluation. Low suspicion for complication with MECHANICAL FACILITIES TECHNICIAN shunt at this time. Pain control: - Tylenol 650 mg po q4h prn headache - [place] 5/325 1 tab po q6h prn pain 9-10 (6) Seizure disorder Status: Chronic Plan: Continue home Keppra and carbamazepine (7) Nutrition, metabolism, and development symptoms Status: Acute Plan: Fluids: none Electrolytes: WNLs Nutrition: Diabetic diet DVT PPX: SCDs. Will add chemical anticoagulation if anticipating a longer hospital stay HLD: Continue Lipitor S/p stent placement: Continue Plavix BPH: Continue Finasteride (Flor Turner MD R3) Flor Turner MD R3 Aug 07, 2016 10:11 Duong Arguello MD Aug 07, 2016 13:15
[2016-08-07] MEDS: ACETAMINOPHEN 325 MG TAB PO PRN (11:47)
[2016-08-07] MEDS: BENZONATATE 100 MG CAP PO SCH ×2 (11:47→17:43)
[2016-08-07 12:00] VITALS: BP 120/63; PULSE 74; RESP 17; TEMP 97.6; O2SAT 95
--- NOTE | 2016-08-07 13:15 | EKG ---
Date Performed: 08/06/2016 Time Performed: 08:41:49 PTAGE: 80 years EKG: Sinus rhythm WITH FIRST DEGREE AV BLOCK RIGHT BUNDLE BRANCH BLOCK LEFT ANTERIOR FASCICULAR BLOCK ABNORMAL ECG Com pared to prior tracing no significant change PREVIOUS TRACING : 08/06/2016 06.32 DOCTOR: Ezequiel Mota Interpretating Date/Time 08/07/2016 13:12:51
[2016-08-07] MEDS ORDERED: GUAI100S5 PO (15:43)
[2016-08-07] MEDS ORDERED: PRED10 PO (15:43)
[2016-08-07] MEDS ORDERED: LORA-392 PO (15:46)
[2016-08-07] MEDS ORDERED: HYDR-3516 PO (15:46)
[2016-08-07] MEDS ORDERED: BENZ100 PO (15:46)
[2016-08-07] MEDS ORDERED: IPRASOL NEB (15:46)
[2016-08-07 16:00] VITALS: BP 115/60; PULSE 69; RESP 18; TEMP 97.7; O2SAT 93
[2016-08-25] MEDS ORDERED: AMOX125S2 PO (11:12)
[2016-08-25] MEDS ORDERED: BENZ100 PO (11:12)
[2016-08-25] MEDS ORDERED: BLOOD PRESSURE1 M20 (11:24)
[2016-08-25] MEDS ORDERED: LORA10TA PO (11:28)
[2016-08-25] MEDS ORDERED: ALBU0.08 NEB (18:52)
[2016-08-30] MEDS ORDERED: CARB200T PO (15:07)
[2016-08-30] MEDS ORDERED: TAMS0.4C4 PO (15:07)
[2016-08-30] MEDS ORDERED: PLAV75TA29 PO (15:07)
[2016-09-30] MEDS ORDERED: TOPA100T11 PO (13:39)
[2016-11-10] MEDS ORDERED: Insulin Syringe (15:54)
[2016-11-23] MEDS ORDERED: CARV12.52 PO (15:23)
[2016-12-23] MEDS ORDERED: Insulin Syringe (13:28)
[2016-12-28] MEDS ORDERED: AUGM875T3 PO (15:17)
[2016-12-28] MEDS ORDERED: PRED20 PO (15:17)
[2017-01-02] MEDS ORDERED: BLOOD GLUCOSE T1 TES (15:19)
== END 2016-08-07 17:52 ==
LOC: NEPC 05:46 → NEDA 09:28 → INTOOBSV 09:28 → N06B 13:28
PROVIDERS: ADMIT Family Medicine; ATTEND Family Medicine
DX: J20.9 Acute bronchitis, unspecified (principal); R09.02 Hypoxemia; I49.01 Ventricular fibrillation; I25.10 Atherosclerotic heart disease of native coronary artery without angina pectoris; I10 Essential (primary) hypertension; I50.9 Heart failure, unspecified; I25.2 Old myocardial infarction; G47.30 Sleep apnea, unspecified; G40.909 Epilepsy, unspecified, not intractable, without status epilepticus; E11.9 Type 2 diabetes mellitus without complications; G91.9 Hydrocephalus, unspecified; E87.2 Acidosis; E78.5 Hyperlipidemia, unspecified; E78.00 Pure hypercholesterolemia, unspecified; N17.9 Acute kidney failure, unspecified; Z79.4 Long term (current) use of insulin; N40.0 Benign prostatic hyperplasia without lower urinary tract symptoms; Z87.01 Personal history of pneumonia (recurrent); Z86.74 Personal history of sudden cardiac arrest; Z95.0 Presence of cardiac pacemaker; Z95.5 Presence of coronary angioplasty implant and graft; Z98.2 Presence of cerebrospinal fluid drainage device; Z87.442 Personal history of urinary calculi; M54.9 Dorsalgia, unspecified; G89.29 Other chronic pain
CPT/HCPCS: 36600; 71010; 71275; 80048; 80053; 82550; 82552; 82805; 82948; 83880; 84484; 85007; 85025; 85027; 93005; 94620; 94640; 94664; 96374; 97162; 99285; G0378; J1815; J2930; J7512; J7613; Q9967

== ENCOUNTER 2016-08-19 11:37 | Emergency (ER) | payer MEDICARE, MEDICAID ==
[~2016-08-19] VITALS: Ht 172.7 cm; Wt 94.5 kg
[~2016-08-19 11:37] MED LIST changes: +BENZ100 PO; +COZA25TA PO; -DEXA1TAB PO; +HYDR-3516 PO; -IPRASOL INH; +IPRASOL NEB; -ISOS30TA3 PO; -LISI40TA PO; +LORA-392 PO; -NORC5TAB PO; +PRED10 PO; +TOPA100T11 PO; -TOPI1TAB36 PO; -VENTAER INH
[2016-08-19 11:40] VITALS: BP 141/79; PULSE 71; RESP 18; TEMP 97.8; O2SAT 96
[2016-08-19] MEDS ORDERED: SODIUM CHLORIDE 0.9% FLUSH 5 ML FLUSH IVF PRN (12:00)
[2016-08-19] MEDS ORDERED: RESP: ALBUTEROL 2.5 MG/IPRATROPIUM 0.5 MG NEB (SCH) INH ONE (12:00)
--- NOTE | 2016-08-19 12:00 | PD ---
HPI Chief Complaint: General Weakness Time Seen by Provider: 11:54 Travel History International Travel<30 days: No Contact w/Intl Traveler<30days: No Traveled to known affect area: No History of Present Illness HPI The patient is a 80-year-old male who presents emergency department multiple complaints. The patient complains of shortness of breath for last 5 days with "wheezing ", cough in the morning that is associated with wheezing that is mostly dry nonproductive. The patient also complains of decreased energy, generalized weakness, decreased appetite over the last month. The patient states he has lost approximately 5-8 pounds over the last month and was hospitalized 3 times in the month of July for similar symptoms. The patient had a workup that included CT pulmonary injury gram was negative, echocardiogram , and was seen by his primary physician, Dr. Duong Arguello, as well as his rim fire priming operator, Dr. Alex. The patient does note generalized weakness which has been progressing, decreased appetite, and mild shortness of breath. He denies any acute chest, nausea, vomiting, diarrhea, or abdominal pain. PFSH Past Medical History Hx Anticoagulant Therapy: Yes (PLAVIX) Arthritis: Yes Asthma: No Anxiety: No Depression: Yes Heart Rhythm Problems: Yes Cancer: No Cardiac Catheterization: Yes Cardiovascular Problems: Yes (AR'S TIMES 3, HTN, CHOL) High Cholesterol: Yes Chemotherapy: No Chest Pain: Yes Congestive Heart Failure: No COPD: No Cerebrovascular Accident: No Coronary Artery Disease: Yes Diabetes: Yes Diminished Hearing: No Endocrine: Yes Gastrointestinal Disorders: No GERD: No Genitourinary: Yes ("SLOW STARTING") Headaches: Yes Hiatal Hernia: No Heparin Induced Thrombocytopen: No Hypertension: Yes Immune Disorder: No Implanted Vascular Access Dvce: Yes Kidney Stones: Yes Musculoskeletal: Yes (CHRONIC BACK PAIN) Neurologic: Yes Psychiatric: No Reproductive: No Respiratory: Yes (BRONCHITIS) Immunizations Current: Yes Migraines: Yes Myocardial Infarction: Yes (X3) Radiation Therapy: No Renal Failure: No Seizures: Yes Sickle Cell Disease: No Sleep Apnea: Yes Thyroid Disease: No Ulcer: No Past Surgical History AICD: No Arteriovenous Shunt: No Body Medical Devices: "SCREWS AND PLATES" TO LEFT ARM Cardiac Surgery: Yes (PACEMAKER: FEBRUARY 2016) Coronary Stent: Yes (X3) Ear Surgery: No Endocrine Surgery: No Eye Surgery: No Genitourinary Surgery: Yes (RIGHT KIDNEY WHEN YOUNGER, LITHROTRIPSY) Gynecologic Surgery: No Insulin Pump: No Joint Replacement: No Neurologic Surgery: Yes (since 6:30 was added on) Oral Surgery: No Pacemaker: No Thoracic Surgery: No Other Surgery: Yes Social History Alcohol Use: No Tobacco Use: No Substance Use: No Allergies-Medications (Allergen,Severity, Reaction): Coded Allergies: Morphine (Verified Allergy, Severe, "doctor stated i was unconscious and shaking", 08/19/16) ?SEIZURE Reported Meds & Prescriptions Reported Meds & Active Scripts Active Duoneb (Ipratropium-Albuterol Neb) 0.5-2.5 Mg/3 Ml Neb 1 Ampule NEB Q6HR NEB Have the patient received this scheduled every 6 hours. Tessalon Perles (Benzonatate) 100 Mg Cap 200 Mg PO TID PRN Alternate with Robitussin AC. Cozaar (Losartan Potassium) 25 Mg Tab 25 Mg PO DAILY Nebulizer 1 Mis Mis 1 Ea .ROUTE DIRECTED Folding Walker/5" Wheels (Device) 1 Mis Mis 1 Ea .ROUTE DIRECTED Nebulizer/Adult Mask (N/A) 1 Kit Kit 1 Kit .ROUTE DIRECTED Albuterol Neb (Albuterol Sulfate) 2.5 Mg/3 Ml Neb 2.5 Mg NEB Q4HR NEB While awake Lancets 1 Mis Mis 1 Ea .ROUTE DIRECTED Lancets for Contour Glucometer - check blood glucose twice daily. Dispense: #200 lancets Blood Glucose Test Strips 1 Kaila Kaila 1 Ea .ROUTE DIRECTED Contour Test 100 Strips - check blood glucose twice daily. Dispense: #200 test strips Carvedilol 12.5 Mg Tab 12.5 Mg PO BID Reported Topamax (Topiramate) 100 Mg Tab 100 Mg PO BID Lantus Inj (Insulin Glargine) 1,000 Unit/10 Ml Vial 25 Units SQ HS Latanoprost Opth Drops (Latanoprost) 0.005% Drops 1 Drop EACH EYE HS Refrigerate until opened. Januvia (Sitagliptin Phosphate) 100 Mg Tab 100 Mg PO DAILY Finasteride 5 Mg Tab 5 Mg PO DAILY Do not crush. Crestor (Rosuvastatin Calcium) 40 Mg Tab 40 Mg PO DAILY Hydrochlorothiazide 25 Mg Tab 25 Mg PO DAILY Plavix (Clopidogrel Bisulfate) 75 Mg Tab 75 Mg PO DAILY Carbamazepine 200 Mg Tab 200 Mg PO BID Glucophage (Metformin HCl) 500 Mg Tab 1,000 Mg PO BIDPC With meals Amlodipine (Amlodipine Besylate) 5 Mg Tab 10 Mg PO DAILY Review of Systems Except as stated in HPI: all other systems reviewed are Neg General / Constitutional: No: Fever HENT: No: Lightheadedness Cardiovascular: No: Chest Pain or Discomfort Respiratory: Positive: Cough, Shortness of Breath, Wheezing Gastrointestinal: No: Nausea, Vomiting, Diarrhea, Abdominal Pain Musculoskeletal: Positive: Weakness, No: Myalgias Neurologic: Positive: Dizziness Physical Exam Narrative GENERAL: Awake, alert, nontoxic-appearing 80-year-old male who appears his stated age and is in no acute respiratory distress. SKIN: Warm and dry. HEAD: Atraumatic. Normocephalic. EYES: No injection or drainage. ENT: No nasal bleeding or discharge. Mucous membranes pink and moist. NECK: Trachea midline. No JVD. CARDIOVASCULAR: Regular rate and rhythm. No murmur appreciated. Pacemaker in place. RESPIRATORY: No accessory muscle use. Clear to auscultation. Breath sounds equal bilaterally. GASTROINTESTINAL: Abdomen soft, slightly obese, no rebound tenderness. MUSCULOSKELETAL: No obvious deformities. No clubbing. No cyanosis. No edema. NEUROLOGICAL: Awake and alert. No obvious cranial nerve deficits. Motor grossly within normal limits. Normal speech. Nonfocal. Oriented 4. Follows commands without difficulty. PSYCHIATRIC: Appropriate mood and affect; insight and judgment normal. Data Data Last Documented VS Vital Signs Date Time Temp Pulse Resp B/P Pulse Ox O2 Delivery O2 Flow Rate FiO2 08/19/16 13:27 64 18 132/78 97 Room Air 08/19/16 11:40 97.8 Orders Complete Blood Count With Diff (08/19/16 11:56) Comprehensive Metabolic Panel (08/19/16 11:56) B-Type Natriuretic Peptide (08/19/16 11:56) Magnesium (Mg) (08/19/16 11:56) Ckmb (Isoenzyme) Profile (08/19/16 11:56) Troponin I (08/19/16 11:56) Iv Access Insert/Monitor (08/19/16 11:56) Electrocardiogram (08/19/16 11:56) Ecg Monitoring (08/19/16 11:56) Oximetry (08/19/16 11:56) Oxygen Administration (08/19/16 11:56) Chest, Single Ap (08/19/16 11:56) Sodium Chloride 0.9% Flush (Ns Flush) (08/19/16 12:00) Albuterol-Ipratropium Neb (Duoneb Neb) (08/19/16 12:00) Carbamazepine (Tegretol) (08/19/16 11:56) Thyroid Stimulating Hormone (08/19/16 11:56) CKMB (08/19/16 12:40) CKMB% (08/19/16 12:40) Sodium Chlorid 0.9% 500 Ml Inj (Ns 500 M (08/19/16 13:30) Labs Laboratory Tests Test 08/19/16 12:40 White Blood Count 6.5 TH/MM3 Red Blood Count 4.06 MIL/MM3 Hemoglobin 12.0 GM/DL Hematocrit 36.4 % Mean Corpuscular Volume 89.6 FL Mean Corpuscular Hemoglobin 29.5 PG Mean Corpuscular Hemoglobin 32.9 % Concent Red Cell Distribution Width 13.9 % Platelet Count 178 TH/MM3 Mean Platelet Volume 8.4 FL Neutrophils (%) (Auto) 73.8 % Lymphocytes (%) (Auto) 14.9 % Monocytes (%) (Auto) 4.4 % Eosinophils (%) (Auto) 5.8 % Basophils (%) (Auto) 1.1 % Neutrophils # (Auto) 4.7 TH/MM3 Lymphocytes # (Auto) 1.0 TH/MM3 Monocytes # (Auto) 0.3 TH/MM3 Eosinophils # (Auto) 0.4 TH/MM3 Basophils # (Auto) 0.1 TH/MM3 CBC Comment DIFF FINAL Differential Comment Sodium Level 145 MEQ/L Potassium Level 4.3 MEQ/L Chloride Level 110 MEQ/L Carbon Dioxide Level 24.3 MEQ/L Anion Gap 11 MEQ/L Blood Urea Nitrogen 40 MG/DL Creatinine 1.80 MG/DL Estimat Glomerular Filtration 37 ML/MIN Rate Random Glucose 130 MG/DL Calcium Level 8.1 MG/DL Magnesium Level 2.3 MG/DL Total Bilirubin 0.1 MG/DL Aspartate Amino Transf 20 U/L (AST/SGOT) Alanine Aminotransferase 36 U/L (ALT/SGPT) Alkaline Phosphatase 100 U/L Total Creatine Kinase 232 U/L Creatine Kinase MB 5.4 NG/ML Troponin I LESS THAN 0.02 NG/ML B-Type Natriuretic Peptide 67 PG/ML Total Protein 6.7 GM/DL Albumin 3.2 GM/DL Thyroid Stimulating Hormone 0.606 uIU/ML 3rd Gen [facility] Medical Decision Making Medical Screen Exam Complete: Yes Emergency Medical Condition: Yes Medical Record Reviewed: Yes Interpretation(s) EKG reveals normal sinus rhythm with PAC. Borderline first-degree heart block. Right bundle-branch block with left anterior fascicular block. No significant changes compared to EKG performed August 06, 2016. Last Impressions Chest X-Ray 08/19/16 1156 Signed Impressions: Service Date/Time: Friday, August 19, 2016 12:02 - CONCLUSION: 1. Cardiomegaly. No acute pulmonary disease. Ezequiel Tamayo MD Laboratory Tests Test 08/19/16 12:40 White Blood Count 6.5 TH/MM3 Red Blood Count 4.06 MIL/MM3 Hemoglobin 12.0 GM/DL Hematocrit 36.4 % Mean Corpuscular Volume 89.6 FL Mean Corpuscular Hemoglobin 29.5 PG Mean Corpuscular Hemoglobin 32.9 % Concent Red Cell Distribution Width 13.9 % Platelet Count 178 TH/MM3 Mean Platelet Volume 8.4 FL Neutrophils (%) (Auto) 73.8 % Lymphocytes (%) (Auto) 14.9 % Monocytes (%) (Auto) 4.4 % Eosinophils (%) (Auto) 5.8 % Basophils (%) (Auto) 1.1 % Neutrophils # (Auto) 4.7 TH/MM3 Lymphocytes # (Auto) 1.0 TH/MM3 Monocytes # (Auto) 0.3 TH/MM3 Eosinophils # (Auto) 0.4 TH/MM3 Basophils # (Auto) 0.1 TH/MM3 CBC Comment DIFF FINAL Differential Comment Sodium Level 145 MEQ/L Potassium Level 4.3 MEQ/L Chloride Level 110 MEQ/L Carbon Dioxide Level 24.3 MEQ/L Anion Gap 11 MEQ/L Blood Urea Nitrogen 40 MG/DL Creatinine 1.80 MG/DL Estimat Glomerular Filtration 37 ML/MIN Rate Random Glucose 130 MG/DL Calcium Level 8.1 MG/DL Magnesium Level 2.3 MG/DL Total Bilirubin 0.1 MG/DL Aspartate Amino Transf 20 U/L (AST/SGOT) Alanine Aminotransferase 36 U/L (ALT/SGPT) Alkaline Phosphatase 100 U/L Total Creatine Kinase 232 U/L Creatine Kinase MB 5.4 NG/ML Troponin I LESS THAN 0.02 NG/ML B-Type Natriuretic Peptide 67 PG/ML Total Protein 6.7 GM/DL Albumin 3.2 GM/DL Thyroid Stimulating Hormone 0.606 uIU/ML 3rd Gen Differential Diagnosis Differential diagnosis includes congestive heart failure, pleural effusion, pulmonary embolism, acute coronary syndrome, bronchitis, pneumonia, deconditioning, Narrative Course IV was established, labs are drawn and sent, and the patient was placed on cardiac telemetry monitoring and continuous pulse oximetry monitoring. EKG was ordered and interpreted. Chest x-ray was ordered. I reviewed the patient's EMR , he had 223 hour observation someone admission in the month of July. The patient was seen by his doctor, Dr. Arguello, as well as his rim fire priming operator, Dr. Robison. The patient had an echocardiogram performed on July 21, 2016 which revealed ejection fraction of 50-55%. The patient underwent CT pulmonary angiogram that was negative for PE and a chest x-ray that revealed no significant changes. The patient's laboratory evaluation is unremarkable except for mild kidney injury which resolved. The patient may have deconditioning, there is no obvious source of patient's shortness of breath. Chest x-ray reveals cardiomegaly but no acute changes. Hemoglobin is at baseline 12.0. BUN and creatinine are mildly elevated consistent with dehydration, therefore, patient was administered 500 cc normal saline bolus. BNP was normal at 67. Troponin is less than 0.02. Patient recently had normal echocardiogram. The patient is advised to drink fluids to stay hydrated, monitor caffeine intake, to follow-up with his primary physician, Dr. Arguello next week as scheduled. Return if symptoms worsen or progress. Diagnosis Primary Impression: BALDOMERO (acute kidney injury) Additional Impressions: Dehydration Generalized weakness Patient Instructions: General Instructions Additional Instructions: Follow-up with your primary physician next week as scheduled and to review your Tegretol level. Please provide the patient a copy of his chest x-ray results and lab results at discharge. Med/Other Pt SpecificInfo: No Change to Meds Disposition: 01 DISCHARGE HOME Condition: Stable Angelo Tanner MD Aug 19, 2016 12:00
--- NOTE | 2016-08-19 12:34 | RADHPO ---
EXAM DATE/TIME: 08/19/2016 12:02 [place] COMPARISON: CHEST SINGLE AP, August 06, 2016, 6:05. INDICATIONS : Shortness of breath. MEDICAL HISTORY : Hypertension. Diabetes mellitus type II. Seizures SURGICAL HISTORY : Pacemaker. Coronary artery stent. ENCOUNTER: Initial ACUITY: 1 day PAIN SCORE: 10 LOCATION: Bilateral chest FINDINGS: The cardiac silhouette is enlarged in transverse diameter. A bipolar pacemaker is in place via a righ t sided approach. The lungs are free of acute parenchymal opacity. No effusions are identified. Shunt catheters traversing the right hemithorax anteriorly. CONCLUSION: 1. Cardiomegaly. No acute pulmonary disease. Ezequiel Tamayo MD on August 19, 2016 at 12:31 Board Certified Radiologist. This report was verified electronically.
[2016-08-19 12:58] LABS: AUTOMATED NEUTROPHIL # 4.7 TH/MM3 (1.8-7.7); BASOPHIL # 0.1 TH/MM3 (0-0.2); BASOPHIL % 1.1 % (0.0-2.0); EOSINOPHIL # 0.4 TH/MM3 (0-0.4); EOSINOPHIL % 5.8 % (0.0-4.0); HEMATOCRIT 36.4 % (39.0-51.0); HEMO FLAGS DIFF FINAL; LYMPH % 14.9 % (9.0-44.0); MEAN CELL VOLUME 89.6 FL (80.0-100.0); MEAN CORPUSCULAR HEMOGLOBIN 29.5 PG (27.0-34.0); MEAN CORPUSCULAR HGB CONC 32.9 % (32.0-36.0); MONO % 4.4 % (0.0-8.0); NEUT % 73.8 % (16.0-70.0); PLATELET COUNT 178 TH/MM3 (150-450); RED BLOOD COUNT 4.06 MIL/MM3 (4.50-5.90); RED CELL DISTRIBUTION WIDTH 13.9 % (11.6-17.2); WHITE BLOOD COUNT 6.5 TH/MM3 (4.0-11.0)
[2016-08-19 13:04] VITALS: RESP 16; O2SAT 96
[2016-08-19 13:07] LABS: CHLORIDE 110 MEQ/L (98-107); POTASSIUM 4.3 MEQ/L (3.5-5.1); SODIUM (NA) 145 MEQ/L (136-145)
[2016-08-19 13:12] LABS: ANION GAP 11 MEQ/L (5-15); BICARBONATE 24.3 MEQ/L (21.0-32.0); BLOOD UREA NITROGEN 40 MG/DL (7-18); MAGNESIUM 2.3 MG/DL (1.5-2.5)
[2016-08-19 13:15] LABS: ALT (GPT) 36 U/L (12-78); AST (GOT) 20 U/L (15-37); GLOMERULAR FILTRATION RATE 37 ML/MIN (>89)
[2016-08-19 13:17] LABS: TOTAL BILIRUBIN ADULT 0.1 MG/DL (0.2-1.0)
[2016-08-19 13:18] LABS: ALKALINE PHOSPHATASE 100 U/L (45-117); CREATINE KINASE 232 U/L (39-308)
[2016-08-19 13:27] VITALS: BP 132/78; PULSE 64; RESP 18; O2SAT 97
[2016-08-19 13:30] LABS: CKMB 5.4 NG/ML (0.5-3.6)
[2016-08-19] MEDS ORDERED: SODIUM CHLORID 0.9% 500 ML INJ 500 ML IV ONE (13:30)
[2016-08-19] MEDS ORDERED: GUAI100S5 PO (14:17)
--- NOTE | 2016-08-20 13:12 | EKG ---
Date Performed: 08/19/2016 Time Performed: 12:02:42 PTAGE: 80 years EKG: Sinus rhythm with PAC(s) with borderline 1st degree A-V block Left axis deviation RBBB with left anterior fascicu lar block Possible anterior infarct - age undetermined Compared to prior tracing no significant gore e Abnormal ECG PREVIOUS TRACING : 08/06/2016 08.41 DOCTOR: Kaleb Cisneros Interpretating Date/Time 08/20/2016 13:10:44
[2016-08-25] MEDS ORDERED: BENZ100 PO (11:12)
[2016-08-25] MEDS ORDERED: AMOX125S2 PO (11:12)
[2016-08-25] MEDS ORDERED: BLOOD PRESSURE1 M20 (11:24)
[2016-08-25] MEDS ORDERED: LORA10TA PO (11:28)
[2016-08-25] MEDS ORDERED: ALBU0.08 NEB (18:52)
[2016-08-30] MEDS ORDERED: TAMS0.4C4 PO (15:07)
[2016-08-30] MEDS ORDERED: CARB200T PO (15:07)
[2016-08-30] MEDS ORDERED: PLAV75TA29 PO (15:07)
[2016-09-30] MEDS ORDERED: TOPA100T11 PO (13:39)
[2016-11-10] MEDS ORDERED: Insulin Syringe (15:54)
[2016-11-23] MEDS ORDERED: CARV12.52 PO (15:23)
[2016-12-23] MEDS ORDERED: Insulin Syringe (13:28)
[2016-12-28] MEDS ORDERED: PRED20 PO (15:17)
[2016-12-28] MEDS ORDERED: AUGM875T3 PO (15:17)
[2017-01-02] MEDS ORDERED: BLOOD GLUCOSE T1 TES (15:19)
== END 2016-08-19 14:25 | disposition home or self-care (01) ==
LOC: PHED 11:37
DX: N17.9 Acute kidney failure, unspecified (principal); E86.0 Dehydration; R53.1 Weakness; I45.2 Bifascicular block; I49.1 Atrial premature depolarization; R06.02 Shortness of breath; Z79.01 Long term (current) use of anticoagulants; I10 Essential (primary) hypertension; I25.2 Old myocardial infarction; E78.00 Pure hypercholesterolemia, unspecified; I25.10 Atherosclerotic heart disease of native coronary artery without angina pectoris; E11.9 Type 2 diabetes mellitus without complications
CPT/HCPCS: 71010; 80053; 80156; 82550; 82552; 83735; 83880; 84443; 84484; 85025; 93005; 94664; 99285; J7040

== ENCOUNTER 2017-01-08 12:43 | Emergency (ER) | payer MEDICARE, MEDICAID ==
[~2017-01-08] VITALS: Ht 172.7 cm; Wt 95.0 kg
[~2017-01-08 12:43] MED LIST changes: +AMOX125S2 PO; +AUGM875T3 PO; +BLOOD PRESSURE1 M20; -DIPH25CA PO; -HYDR-3516 PO; +Insulin Syringe; -LORA-392 PO; +LORA10TA PO; -PRED10 PO; +PRED20 PO; +TAMS0.4C4 PO
[2017-01-08 13:00] VITALS: BP 130/75; PULSE 76; RESP 18; TEMP 98.3; O2SAT 96
[2017-01-08] MEDS ORDERED: ONDANSETRON HCL 4 MG/2 ML VIAL IVP ONE (13:45)
[2017-01-08] MEDS ORDERED: SODIUM CHLORIDE 0.9% FLUSH 10 ML FLUSH IVF PRN (13:45)
[2017-01-08] MEDS ORDERED: HYDROmorphone HCL PF 1 MG/ML VIAL IVS ONE (13:45)
[2017-01-08 13:55] VITALS: O2SAT 95
[2017-01-08 13:58] VITALS: BP 114/62; PULSE 64; O2SAT 95
[2017-01-08 14:01] LABS: AUTOMATED NEUTROPHIL # 7.4 TH/MM3 (1.8-7.7); BASOPHIL % 0.4 % (0.0-2.0); EOSINOPHIL # 0.1 TH/MM3 (0-0.4); MEAN CELL VOLUME 90.8 FL (80.0-100.0); MEAN CORPUSCULAR HEMOGLOBIN 30.3 PG (27.0-34.0); MEAN CORPUSCULAR HGB CONC 33.3 % (32.0-36.0); MONO % 5.9 % (0.0-8.0); NEUT % 81.7 % (16.0-70.0); PLATELET COUNT 164 TH/MM3 (150-450); RED BLOOD COUNT 4.19 MIL/MM3 (4.50-5.90); RED CELL DISTRIBUTION WIDTH 13.3 % (11.6-17.2)
[2017-01-08 14:17] LABS: POTASSIUM 4.1 MEQ/L (3.5-5.1)
[2017-01-08 14:20] LABS: BICARBONATE 24.1 MEQ/L (21.0-32.0)
[2017-01-08 14:21] LABS: HEMO FLAGS DIFF FINAL
--- NOTE | 2017-01-08 14:46 | PD ---
HPI Chief Complaint: Musculoskeletal Complaint Time Seen by Provider: 13:39 Travel History International Travel<30 days: No Contact w/Intl Traveler<30days: No Traveled to known affect area: No History of Present Illness HPI The patient 81 years old. He complains of 5 days of pain in the region of the right parietal scalp just behind the ear and into the region of the right supraclavicular fossa. He has a history of a ventriculoperitoneal shunt placed [address] Andersen. He has no numbness tingling weakness loss of consciousness or generalized headache. He tried painkillers multiple times without any pain relief. He's had no vomiting. He's had no fever. He states the pain is constant. His reports the patient recently completed a course of antibiotics for otitis media and pharyngitis. PFSH Past Medical History Hx Anticoagulant Therapy: Yes (WARFARIN) Arthritis: Yes Asthma: No Anxiety: No Depression: Yes Heart Rhythm Problems: Yes Cancer: No Cardiac Catheterization: Yes Cardiovascular Problems: Yes High Cholesterol: Yes Chemotherapy: No Chest Pain: Yes Congestive Heart Failure: No COPD: No Coronary Artery Disease: Yes Diabetes: Yes Patient Takes Glucophage: Yes Diminished Hearing: No Endocrine: Yes Gastrointestinal Disorders: No GERD: No Genitourinary: Yes ("SLOW STARTING") Headaches: Yes Hiatal Hernia: No Heparin Induced Thrombocytopen: No Hypertension: Yes Immune Disorder: No Implanted Vascular Access Dvce: Yes Kidney Stones: Yes Musculoskeletal: Yes (CHRONIC BACK PAIN) Neurologic: Yes Psychiatric: No Reproductive: No Respiratory: Yes (BRONCHITIS) Immunizations Current: Yes Migraines: Yes Myocardial Infarction: Yes (X3) Radiation Therapy: No Renal Failure: No Seizures: Yes Sickle Cell Disease: No Sleep Apnea: Yes Thyroid Disease: No Ulcer: No ?: Not Past Surgical History AICD: No Arteriovenous Shunt: No Body Medical Devices: "SCREWS AND PLATES" TO LEFT ARM Cardiac Surgery: Yes (PACEMAKER: FEBRUARY 2016) Coronary Stent: Yes (X3) Ear Surgery: No Endocrine Surgery: No Eye Surgery: No Genitourinary Surgery: Yes (RIGHT KIDNEY WHEN YOUNGER, LITHROTRIPSY) Gynecologic Surgery: No Insulin Pump: No Joint Replacement: No Neurologic Surgery: Yes (since 6:30 was added on) Oral Surgery: No Pacemaker: No Thoracic Surgery: No Other Surgery: Yes Social History Alcohol Use: No Tobacco Use: No Substance Use: No Allergies-Medications (Allergen,Severity, Reaction): Coded Allergies: Morphine (Verified Allergy, Severe, "doctor stated i was unconscious and shaking", 01/08/17) ?SEIZURE Reported Meds & Prescriptions Reported Meds & Active Scripts Active Percocet (Oxycodone-Acetaminophen) 5-325 mg Tab 1-2 Tab PO Q6H PRN Blood Glucose Test Strips 1 Kaila Kaila 1 Ea .ROUTE DIRECTED Contour Test 100 Strips - check blood glucose twice daily. Dispense: #200 test strips Prednisone 20 Mg Tab 20 Mg PO DAILY Augmentin (Amoxicillin-Clavulanate) 875-125 Mg Tab 1 Tab PO BID [Insulin Syringe] 1 Unit .XX DIRECTED Ulticare Insulin Syringe 1ml, 30G x 1/2" Carvedilol 12.5 Mg Tab 12.5 Mg PO BID Tamsulosin (Tamsulosin HCl) 0.4 Mg Cap 0.4 Mg PO HS Plavix (Clopidogrel Bisulfate) 75 Mg Tab 75 Mg PO DAILY Carbamazepine 200 Mg Tab 200 Mg PO BID Albuterol Neb (Albuterol Sulfate) 2.5 Mg/3 Ml Neb 2.5 Mg NEB Q4HR NEB While awake Blood Pressure Kit/Arm Cuff 1 Mis Mis 1 Ea .ROUTE DIRECTED Amoxicillin Liq (Amoxicillin) 125 Mg/5 Ml Susp 125 Mg PO TID 7 Days 125 mg (5 mL). Take for 10 days. Duoneb (Ipratropium-Albuterol Neb) 0.5-2.5 Mg/3 Ml Neb 1 Ampule NEB Q6HR NEB Have the patient received this scheduled every 6 hours. Cozaar (Losartan Potassium) 25 Mg Tab 25 Mg PO DAILY Nebulizer 1 Mis Mis 1 Ea .ROUTE DIRECTED Nebulizer/Adult Mask (N/A) 1 Kit Kit 1 Kit .ROUTE DIRECTED Lancets 1 Mis Mis 1 Ea .ROUTE DIRECTED Lancets for Contour Glucometer - check blood glucose twice daily. Dispense: #200 lancets Reported Lantus Inj (Insulin Glargine) 1,000 Unit/10 Ml Vial 25 Units SQ HS Januvia (Sitagliptin Phosphate) 100 Mg Tab 100 Mg PO DAILY Finasteride 5 Mg Tab 5 Mg PO DAILY Do not crush. Crestor (Rosuvastatin Calcium) 40 Mg Tab 40 Mg PO DAILY Hydrochlorothiazide 25 Mg Tab 25 Mg PO DAILY Glucophage (Metformin HCl) 500 Mg Tab 1,000 Mg PO BIDPC With meals Amlodipine (Amlodipine Besylate) 5 Mg Tab 10 Mg PO DAILY Review of Systems Except as stated in HPI: all other systems reviewed are Neg Physical Exam Narrative GENERAL: 81 -year-old male pleasant well-nourished well-developed SKIN: Focused skin assessment warm/dry. HEAD: Atraumatic. Normocephalic. Patient has ventriculoperitoneal shunt on the right side. There is no warmth or erythema or tenderness about the shunt. EYES: Pupils equal and round. No scleral icterus. No injection or drainage. ENT: No nasal bleeding or discharge. Mucous membranes pink and moist. No mastoid tenderness. Bilateral middle ear effusion present. No otitis media. NECK: Trachea midline. No JVD. normal ROM of neck. CARDIOVASCULAR: Regular rate and rhythm. No murmur appreciated. RESPIRATORY: No accessory muscle use. Clear to auscultation. Breath sounds equal bilaterally. GASTROINTESTINAL: Abdomen soft, non-tender, nondistended. Hepatic and splenic margins not palpable. MUSCULOSKELETAL: No obvious deformities. No clubbing. No cyanosis. No edema. NEUROLOGICAL: Awake and alert. No obvious cranial nerve deficits. Motor grossly within normal limits. Normal speech. PSYCHIATRIC: Appropriate mood and affect; insight and judgment normal. Data Data Last Documented VS Vital Signs Date Time Temp Pulse Resp B/P Pulse Ox O2 Delivery O2 Flow Rate FiO2 01/08/17 16:13 60 123/63 96 01/08/17 13:00 98.3 18 Vital signs reviewed Orders Complete Blood Count With Diff (01/08/17 13:39) Basic Metabolic Panel (Bmp) (01/08/17 13:39) Ct Brain W/O Iv Contrast(Rout) (01/08/17 13:39) Ecg Monitoring (01/08/17 13:39) Iv Access Insert/Monitor (01/08/17 13:39) Oximetry (01/08/17 13:39) Sodium Chloride 0.9% Flush (Ns Flush) (01/08/17 13:45) Ondansetron Inj (Zofran Inj) (01/08/17 13:45) Hydromorphone Pf Inj (Dilaudid Pf Inj) (01/08/17 13:45) Labs Laboratory Tests Test 01/08/17 13:50 White Blood Count 9.0 TH/MM3 Red Blood Count 4.19 MIL/MM3 Hemoglobin 12.7 GM/DL Hematocrit 38.0 % Mean Corpuscular Volume 90.8 FL Mean Corpuscular Hemoglobin 30.3 PG Mean Corpuscular Hemoglobin 33.3 % Concent Red Cell Distribution Width 13.3 % Platelet Count 164 TH/MM3 Mean Platelet Volume 8.2 FL Neutrophils (%) (Auto) 81.7 % Lymphocytes (%) (Auto) 11.0 % Monocytes (%) (Auto) 5.9 % Eosinophils (%) (Auto) 1.0 % Basophils (%) (Auto) 0.4 % Neutrophils # (Auto) 7.4 TH/MM3 Lymphocytes # (Auto) 1.0 TH/MM3 Monocytes # (Auto) 0.5 TH/MM3 Eosinophils # (Auto) 0.1 TH/MM3 Basophils # (Auto) 0.0 TH/MM3 CBC Comment DIFF FINAL Differential Comment Sodium Level 144 MEQ/L Potassium Level 4.1 MEQ/L Chloride Level 112 MEQ/L Carbon Dioxide Level 24.1 MEQ/L Anion Gap 8 MEQ/L Blood Urea Nitrogen 22 MG/DL Creatinine 1.30 MG/DL Estimat Glomerular Filtration 53 ML/MIN Rate Random Glucose 145 MG/DL Calcium Level 8.1 MG/DL MDM Medical Decision Making Medical Screen Exam Complete: Yes Emergency Medical Condition: Yes Medical Record Reviewed: Yes Differential Diagnosis Shunt infection, shunt obstruction, neck pain, hydrocephalus, sepsis Narrative Course CBC & BMP Diagram 01/08/17 13:50 Last [address] 01/08/17 1339 Signed Impressions: Service Date/Time: Sunday, January 08, 2017 14:41 - CONCLUSION: 1. No acute findings. Stable CT appearance of right frontal ventriculostomy tube with some right frontal encephalomalacia. Milan Ash MD Pt reassessed at 1630. Complete resolution of pain reported. He was given the options of an overnight stay for neurosurgery evaluation. He elected to head home. No erythema/warmth/induration overlying ENGLISH DRAWER shunt. Return precautions discussed in detail. Pt has verbalized understanding. He is ready discharge. Follow up with Dr Andersen this week. Diagnosis Primary Impression: Pain of scalp Referrals: Chance Andersen MD 1 day Duong Arguello MD 1 day Additional Instructions: You have a choice when it comes to health care, and we are glad that you chose [facility]. Hopefully, we have met your expectations on today's visit. You are welcome to return to [facility] at any time, as we are committed to meeting the health care needs of our community. Med/Other Pt SpecificInfo: Prescription(s) given Scripts Oxycodone-Acetaminophen (Percocet)5-325 mg Tab1-2 Tab PO Q6H PRN (PAIN SCALE 6 TO 10) #12 TAB Ref 0 Prov:Asher Landry MD 01/08/17 Disposition: 01 DISCHARGE HOME Condition: Stable Asher Landry MD Jan 08, 2017 14:46
[2017-01-08 15:13] VITALS: BP 113/68; PULSE 60; O2SAT 95
--- NOTE | 2017-01-08 15:38 | RADRPT ---
EXAM DATE/TIME: 01/08/2017 14:41 [facility] COMPARISON: CT BRAIN W/O CONTRAST, December 28, 2014, 21:17. INDICATIONS : right sided head pain radiating down right side of neck. RADIATION DOSE: 59.28 CTDIvol (mGy) MEDICAL HISTORY : Cerebrovascular disease. Seizures. Cardiovascular disease SURGICAL HISTORY : Pacemaker. Coronary artery stent.Shunt. ENCOUNTER: Initial ACUITY: 4 - 6 days PAIN SCALE: 5/10 LOCATION: Right cranial TECHNIQUE: Multiple contiguous axial images were obtained of the head. Using automated exposure control and adj ustment of the mA and/or kV according to patient size, radiation dose was kept as low as reasonably a chievable to obtain optimal diagnostic quality images. DICOM format image data is available electro nically for review and comparison. FINDINGS: Compared to 15. Again seen is a right frontal ventriculostomy tube. There is encephalomalacia along t he course of the ventriculostomy similar to prior exam. No new mass, shift or hemorrhage. No hydrocep halus. No acute bony abnormality. CONCLUSION: 1. No acute findings. Stable CT appearance of right frontal ventriculostomy tube with some right fron caryl encephalomalacia. Milan Ash MD on January 08, 2017 at 15:32 Board Certified Radiologist. This report was verified electronically.
[2017-01-08 16:13] VITALS: BP 123/63; PULSE 60; O2SAT 96
[2017-01-08] MEDS ORDERED: PERC5TAB12 PO (16:27)
== END 2017-01-08 16:50 | disposition home or self-care (01) ==
LOC: PHED 12:43
DX: R51 Headache (principal); E11.9 Type 2 diabetes mellitus without complications; I10 Essential (primary) hypertension; E78.00 Pure hypercholesterolemia, unspecified; G47.30 Sleep apnea, unspecified; I25.2 Old myocardial infarction; Z79.01 Long term (current) use of anticoagulants; Z79.4 Long term (current) use of insulin; Z86.69 Personal history of other diseases of the nervous system and sense organs; Z87.39 Personal history of other diseases of the musculoskeletal system and connective tissue; Z86.79 Personal history of other diseases of the circulatory system; Z87.448 Personal history of other diseases of urinary system
CPT/HCPCS: 70450; 80048; 85025; 96374; 96375; 99285; J1170; J2405

== ENCOUNTER 2017-01-17 11:17 | Emergency (ER) | payer MEDICARE, MEDICAID ==
[~2017-01-17] VITALS: Ht 172.7 cm; Wt 95.5 kg
[~2017-01-17 11:17] MED LIST changes: -BENZ100 PO; -GUAI100S5 PO; -LATA0.002 EACH EYE; -LORA10TA PO; -MISC-274; +PERC5TAB12 PO; -TOPA100T11 PO
[2017-01-17 11:20] VITALS: BP 156/72; PULSE 62; RESP 18; TEMP 97.7; O2SAT 98
--- NOTE | 2017-01-17 11:27 | PD ---
Physical Exam Time Seen by Provider: 11:25 Narrative 81 y/o male with hx of vp organizational development shunt presents for evaluation of one week duration R sided neck pain, worse since yesterday. Seen by Dr. Landry for this issue on 01/08, symptoms have worsened since then. Seen [address] Cabral's office last week and reportedly outpatient neck imaging was ordered but this has not been performed yet. Vital signs reviewed. Seen at triage desk. Awaiting bed placement. Data Data Last Documented VS Vital Signs Date Time Temp Pulse Resp B/P Pulse Ox O2 Delivery O2 Flow Rate FiO2 01/17/17 11:20 97.7 62 18 156/72 98 Room Air [facility] Medical Record Reviewed: No Supervised Visit with KHUSHBU: Will Pitt Jan 17, 2017 11:26
--- NOTE | 2017-01-17 12:00 | PD ---
HPI Chief Complaint: Pain: Acute or Chronic Time Seen by Provider: 12:00 Travel History International Travel<30 days: No Contact w/Intl Traveler<30days: No Traveled to known affect area: No History of Present Illness HPI 81 year old male with history of CVA, shunt placement, CAD, HTN, presents to the emergency department evaluation of right sided neck pain, that has been ongoing for the last several weeks. Patient denies any trauma. He has been seen by his primary care provider for this. Outpatient ultrasound has been ordered. Patient is given pain control, however he states he has not taken this because "it does not work." He tells me that "Dilaudid is the only thing that works for him." Patient recalls no injury. No difficulty swallowing. States the pain is severe,"14/10" constant. No recent illnesses, fever, or chills. No focal deficits or weakness. He has no other symptoms to report. PFSH Past Medical History Hx Anticoagulant Therapy: Yes Arthritis: Yes Asthma: No Anxiety: No Depression: Yes Heart Rhythm Problems: Yes Cancer: No Cardiac Catheterization: Yes Cardiovascular Problems: Yes (3 STENTS) High Cholesterol: Yes Chemotherapy: No Chest Pain: Yes Congestive Heart Failure: No COPD: No Coronary Artery Disease: Yes Diabetes: Yes (METFORMIN 01/17/17 0800) Diminished Hearing: No Endocrine: Yes Gastrointestinal Disorders: No GERD: No Genitourinary: Yes ("SLOW STARTING") Headaches: Yes Hiatal Hernia: No Heparin Induced Thrombocytopen: No Hypertension: Yes Immune Disorder: No Implanted Vascular Access Dvce: Yes Kidney Stones: Yes Musculoskeletal: Yes (CHRONIC BACK PAIN) Neurologic: Yes Psychiatric: No Reproductive: No Respiratory: Yes (BRONCHITIS) Immunizations Current: Yes Migraines: Yes Myocardial Infarction: Yes (X3) Radiation Therapy: No Renal Failure: No Seizures: Yes Sickle Cell Disease: No Sleep Apnea: Yes Thyroid Disease: No Ulcer: No Past Surgical History AICD: No Arteriovenous Shunt: No Body Medical Devices: "SCREWS AND PLATES" TO LEFT ARM Cardiac Surgery: Yes (PACEMAKER: FEBRUARY 2016) Coronary Stent: Yes (X3) Ear Surgery: No Endocrine Surgery: No Eye Surgery: No Genitourinary Surgery: Yes (RIGHT KIDNEY WHEN YOUNGER, LITHROTRIPSY) Gynecologic Surgery: No Insulin Pump: No Joint Replacement: No Neurologic Surgery: Yes (since 6:30 was added on) Oral Surgery: No Pacemaker: No Thoracic Surgery: No Other Surgery: Yes Social History Alcohol Use: No Tobacco Use: No Substance Use: No Allergies-Medications (Allergen,Severity, Reaction): Coded Allergies: Morphine (Verified Allergy, Severe, "doctor stated i was unconscious and shaking", 01/17/17) ?SEIZURE Reported Meds & Prescriptions Reported Meds & Active Scripts Active Percocet (Oxycodone-Acetaminophen) 5-325 mg Tab 1-2 Tab PO Q6H PRN Blood Glucose Test Strips 1 Kaila Kaila 1 Ea .ROUTE DIRECTED Contour Test 100 Strips - check blood glucose twice daily. Dispense: #200 test strips Prednisone 20 Mg Tab 20 Mg PO DAILY [Insulin Syringe] 1 Unit .XX DIRECTED Ulticare Insulin Syringe 1ml, 30G x 1/2" Carvedilol 12.5 Mg Tab 12.5 Mg PO BID Tamsulosin (Tamsulosin HCl) 0.4 Mg Cap 0.4 Mg PO HS Plavix (Clopidogrel Bisulfate) 75 Mg Tab 75 Mg PO DAILY Carbamazepine 200 Mg Tab 200 Mg PO BID Albuterol Neb (Albuterol Sulfate) 2.5 Mg/3 Ml Neb 2.5 Mg NEB Q4HR NEB While awake Blood Pressure Kit/Arm Cuff 1 Mis Mis 1 Ea .ROUTE DIRECTED Cozaar (Losartan Potassium) 25 Mg Tab 25 Mg PO DAILY Lancets 1 Mis Mis 1 Ea .ROUTE DIRECTED Lancets for Contour Glucometer - check blood glucose twice daily. Dispense: #200 lancets Reported Lantus Inj (Insulin Glargine) 1,000 Unit/10 Ml Vial 25 Units SQ HS Januvia (Sitagliptin Phosphate) 100 Mg Tab 100 Mg PO DAILY Finasteride 5 Mg Tab 5 Mg PO DAILY Do not crush. Crestor (Rosuvastatin Calcium) 40 Mg Tab 40 Mg PO DAILY Hydrochlorothiazide 25 Mg Tab 25 Mg PO DAILY Glucophage (Metformin HCl) 500 Mg Tab 1,000 Mg PO BIDPC With meals Amlodipine (Amlodipine Besylate) 5 Mg Tab 10 Mg PO DAILY Review of Systems Except as stated in HPI: all other systems reviewed are Neg Physical Exam Narrative GENERAL: Well-nourished male patient, ambulatory no acute distress SKIN: Focused skin assessment warm/dry. HEAD: Atraumatic. Normocephalic. Shunt is noted in place on the right ventral parietal scalp. EYES: Pupils equal and round. No scleral icterus. No injection or drainage. ENT: No nasal bleeding or discharge. Mucous membranes pink and moist. NECK: Trachea midline. No JVD. No tenderness elicited to palpation of cervical spine. I'm unable to palpate any masses. The patient is pointing right along his right sternocleidomastoid where the pain is. Me palpating it does not make it any worse or better. CARDIOVASCULAR: Regular rate and rhythm. RESPIRATORY: No accessory muscle use. Clear to auscultation. Breath sounds equal bilaterally. GASTROINTESTINAL: Abdomen soft, non-tender, nondistended. Hepatic and splenic margins not palpable. MUSCULOSKELETAL: No obvious deformities. No clubbing. No cyanosis. No edema. NEUROLOGICAL: Awake and alert. No obvious cranial nerve deficits. Motor grossly within normal limits. Normal speech. Data Data Last Documented VS Vital Signs Date Time Temp Pulse Resp B/P Pulse Ox O2 Delivery O2 Flow Rate FiO2 01/17/17 14:58 15 01/17/17 11:20 97.7 62 156/72 98 Room Air Orders Iv Access Insert/Monitor (01/17/17 12:15) Complete Blood Count With Diff (01/17/17 12:16) Basic Metabolic Panel (Bmp) (01/17/17 12:16) Ketorolac Inj (Toradol Inj) (01/17/17 12:30) Sodium Chlorid 0.9% 500 Ml Inj (Ns 500 M (01/17/17 12:30) Labs Laboratory Tests Test 01/17/17 12:30 White Blood Count 6.0 TH/MM3 Red Blood Count 4.30 MIL/MM3 Hemoglobin 12.6 GM/DL Hematocrit 39.3 % Mean Corpuscular Volume 91.4 FL Mean Corpuscular Hemoglobin 29.3 PG Mean Corpuscular Hemoglobin 32.1 % Concent Red Cell Distribution Width 14.2 % Platelet Count 195 TH/MM3 Mean Platelet Volume 8.4 FL Neutrophils (%) (Auto) 72.6 % Lymphocytes (%) (Auto) 17.4 % Monocytes (%) (Auto) 6.6 % Eosinophils (%) (Auto) 2.6 % Basophils (%) (Auto) 0.8 % Neutrophils # (Auto) 4.3 TH/MM3 Lymphocytes # (Auto) 1.0 TH/MM3 Monocytes # (Auto) 0.4 TH/MM3 Eosinophils # (Auto) 0.2 TH/MM3 Basophils # (Auto) 0.0 TH/MM3 CBC Comment DIFF FINAL Differential Comment Sodium Level 143 MEQ/L Potassium Level 4.8 MEQ/L Chloride Level 111 MEQ/L Carbon Dioxide Level 23.5 MEQ/L Anion Gap 9 MEQ/L Blood Urea Nitrogen 26 MG/DL Creatinine 1.52 MG/DL Estimat Glomerular Filtration 44 ML/MIN Rate Random Glucose 100 MG/DL Calcium Level 8.9 MG/DL MDM Medical Decision Making Medical Screen Exam Complete: Yes Emergency Medical Condition: Yes Medical Record Reviewed: Yes Differential Diagnosis Muscle spasm versus strain versus discogenic pain versus herpetic pre-drome versus mass versus neuralgia Narrative Course 81-year-old male presents to emergency department for evaluation right sided neck pain, described as severe. Patient has no focal deficits or weakness. His vital signs are stable. Lab work is ordered with no acute abnormality. Patient does have renal insufficiency. Patient is requesting IV Dilaudid, however I will not be giving him this in the emergency department as he has not tried anything for pain control today. I have ordered a CT of the neck for further evaluation of patient's pain however the patient does not want to wait for this to be completed. Upon reassessment and waiting for CT to be done, patient states his pain has resolved and he would like to leave. There is no indication for the patient to be emergently worked up further. He will follow- up with his primary care provider. He agrees to return immediately with any acute worsening symptoms. Diagnosis Primary Impression: Neck pain on right side Referrals: Primary Care Physician Patient Instructions: General Instructions, Neck Pain (DC) Additional Instructions: Ice and/or warm ice may help alleviate symptoms Follow-up with a primary care provider Continue pain medication as already prescribed Return immediately with any acute worsening of symptoms Med/Other Pt SpecificInfo: No Change to Meds Disposition: 01 DISCHARGE HOME Condition: Stable Loida Peters ZACHARY Jan 17, 2017 12:00
[2017-01-17] MEDS ORDERED: KETOROLAC TROMETHAMINE 30 MG/ML (IVP) VIAL IV PUSH ONE (12:30)
[2017-01-17] MEDS ORDERED: SODIUM CHLORID 0.9% 500 ML INJ 500 ML IV ONE (12:30)
[2017-01-17 12:48] LABS: AUTOMATED NEUTROPHIL # 4.3 TH/MM3 (1.8-7.7); BASOPHIL % 0.8 % (0.0-2.0); EOSINOPHIL # 0.2 TH/MM3 (0-0.4); EOSINOPHIL % 2.6 % (0.0-4.0); HEMATOCRIT 39.3 % (39.0-51.0); HEMO FLAGS DIFF FINAL; LYMPH % 17.4 % (9.0-44.0); MEAN CELL VOLUME 91.4 FL (80.0-100.0); MEAN CORPUSCULAR HEMOGLOBIN 29.3 PG (27.0-34.0); MEAN CORPUSCULAR HGB CONC 32.1 % (32.0-36.0); MONO % 6.6 % (0.0-8.0); NEUT % 72.6 % (16.0-70.0); PLATELET COUNT 195 TH/MM3 (150-450); RED CELL DISTRIBUTION WIDTH 14.2 % (11.6-17.2)
[2017-01-17 13:07] LABS: BICARBONATE 23.5 MEQ/L (21.0-32.0); POTASSIUM 4.8 MEQ/L (3.5-5.1)
[2017-01-17 14:58] VITALS: RESP 15
== END 2017-01-17 15:05 | disposition home or self-care (01) ==
LOC: NEPC 11:17
DX: M54.2 Cervicalgia (principal)
CPT/HCPCS: 80048; 85025; 96361; 96374; 99284; J1885; J7040

== ENCOUNTER 2017-01-20 12:52 | Emergency (ER) | payer MEDICARE, MEDICAID ==
[~2017-01-20] VITALS: Ht 172.7 cm; Wt 96.7 kg
[~2017-01-20 12:52] MED LIST changes: -AMOX125S2 PO; -AUGM875T3 PO; -IPRASOL NEB; -NEBULIZER/ADULT1 KIT; -NEBULIZER1 MI1
[2017-01-20 12:58] VITALS: BP 164/86; PULSE 66; RESP 16; TEMP 98; O2SAT 97
[2017-01-20] MEDS ORDERED: HYDR-2374 PO (13:11)
[2017-01-20] MEDS ORDERED: HYDROmorphone HCL 2 MG TAB PO ONE (14:00)
--- NOTE | 2017-01-20 14:15 | PD ---
HPI Chief Complaint: Back/ Neck Pain or Injury Time Seen by Provider: 13:11 Travel History International Travel<30 days: No Contact w/Intl Traveler<30days: No Traveled to known affect area: No History of Present Illness HPI Patient is a 81-year-old male presents emergency department right-sided neck pain. This is his third presentations emergency department this month for the same complaint. Patient states he followed up with his neurologist Dr. Cabral who ordered a shunt series examination but the patient has not received results of yet. He states he's continued to have neck pain right over the shunt on the right side, no radiation, no headache. Patient workup in the emergency department included a CT of the head. Patient states pain is 14 out of 10, his interjects that "Dilaudid IV seems to be the only thing that works for him ". Patient denies any focalized weakness denies any radiation down his arm denies any neck pain denies any chest pain shortness of breath or abdominal pain. PFSH Past Medical History Hx Anticoagulant Therapy: Yes Arthritis: Yes Asthma: No Anxiety: No Depression: Yes Heart Rhythm Problems: Yes (pacemaker) Cancer: No Cardiac Catheterization: Yes Cardiovascular Problems: Yes (3 STENTS) High Cholesterol: Yes Chemotherapy: No Chest Pain: Yes Congestive Heart Failure: No COPD: No Coronary Artery Disease: Yes Diabetes: Yes Patient Takes Glucophage: Yes (1000 01-20-17) Diminished Hearing: No Endocrine: Yes Gastrointestinal Disorders: No GERD: No Genitourinary: Yes ("SLOW STARTING") Headaches: Yes Hiatal Hernia: No Heparin Induced Thrombocytopen: No Hypertension: Yes Immune Disorder: No Implanted Vascular Access Dvce: Yes Kidney Stones: Yes Musculoskeletal: Yes (CHRONIC BACK PAIN) Neurologic: Yes Psychiatric: No Reproductive: No Respiratory: Yes (BRONCHITIS) Immunizations Current: Yes Migraines: Yes Myocardial Infarction: Yes Radiation Therapy: No Renal Failure: No Seizures: Yes Sickle Cell Disease: No Sleep Apnea: Yes Thyroid Disease: No Ulcer: No Tetanus Vaccination: < 5 Years Influenza Vaccination: Yes Past Surgical History AICD: No Arteriovenous Shunt: No Body Medical Devices: "SCREWS AND PLATES" TO LEFT ARM Cardiac Surgery: Yes (PACEMAKER: FEBRUARY 2016 possible defib) Coronary Stent: Yes Ear Surgery: No Endocrine Surgery: No Eye Surgery: No Genitourinary Surgery: Yes (RIGHT KIDNEY WHEN YOUNGER, LITHROTRIPSY) Gynecologic Surgery: No Insulin Pump: No Joint Replacement: No Neurologic Surgery: Yes (since 6:30 was added on) Oral Surgery: No Pacemaker: Yes Thoracic Surgery: No Other Surgery: Yes (shunt placed Rt side of neck) Social History Alcohol Use: No Tobacco Use: No Substance Use: No Allergies-Medications (Allergen,Severity, Reaction): Coded Allergies: Morphine (Verified Allergy, Severe, "doctor stated i was unconscious and shaking", 01/20/17) ?SEIZURE Reported Meds & Prescriptions Reported Meds & Active Scripts Active Carvedilol 12.5 Mg Tab 12.5 Mg PO BID Tamsulosin (Tamsulosin HCl) 0.4 Mg Cap 0.4 Mg PO HS Plavix (Clopidogrel Bisulfate) 75 Mg Tab 75 Mg PO DAILY Carbamazepine 200 Mg Tab 200 Mg PO BID Albuterol Neb (Albuterol Sulfate) 2.5 Mg/3 Ml Neb 2.5 Mg NEB Q4HR NEB While awake Cozaar (Losartan Potassium) 25 Mg Tab 25 Mg PO DAILY Reported Hydrocodone-Acetaminophen 10-300 Tab 1 Tab PO Q4H PRN Lantus Inj (Insulin Glargine) 1,000 Unit/10 Ml Vial 25 Units SQ HS Januvia (Sitagliptin Phosphate) 100 Mg Tab 100 Mg PO DAILY Finasteride 5 Mg Tab 5 Mg PO DAILY Do not crush. Crestor (Rosuvastatin Calcium) 40 Mg Tab 40 Mg PO DAILY Hydrochlorothiazide 25 Mg Tab 25 Mg PO DAILY Glucophage (Metformin HCl) 500 Mg Tab 1,000 Mg PO BIDPC With meals Amlodipine (Amlodipine Besylate) 5 Mg Tab 10 Mg PO DAILY Review of Systems Except as stated in HPI: all other systems reviewed are Neg Physical Exam Narrative GENERAL: Well-developed well-nourished in obvious distress. Sitting comfortably stretcher with eyes closed. SKIN: Focused skin assessment warm/dry. HEAD: Atraumatic. Normocephalic. EYES: Pupils equal and round. No scleral icterus. No injection or drainage. ENT: No nasal bleeding or discharge. Mucous membranes pink and moist. NECK: Trachea midline. No JVD. The shunt tubing is easily palpable in the right neck, he does demonstrate full nontender range of motion in his neck, no focal tenderness spot is appreciated. No midline C-spine tenderness, no step- off. CARDIOVASCULAR: Regular rate and rhythm. No murmur appreciated. RESPIRATORY: No accessory muscle use. Clear to auscultation. Breath sounds equal bilaterally. GASTROINTESTINAL: Abdomen soft, non-tender, nondistended. Hepatic and splenic margins not palpable. MUSCULOSKELETAL: No obvious deformities. No clubbing. No cyanosis. No edema. NEUROLOGICAL: Awake and alert. Cranial nerves II through XII are grossly intact , 5 out of 5 strength in all 4 extremities. Cerebellar testing negative. PSYCHIATRIC: Appropriate mood and affect; insight and judgment normal. Data Data Last Documented VS Vital Signs Date Time Temp Pulse Resp B/P Pulse Ox O2 Delivery O2 Flow Rate FiO2 01/20/17 15:25 60 14 141/79 96 Room Air 01/20/17 12:58 98.0 Orders Hydromorphone (Dilaudid) (01/20/17 14:00) Ct Soft Tiss Neck W/O Iv Cont (01/20/17 ) MDM Medical Decision Making Medical Screen Exam Complete: Yes Emergency Medical Condition: Yes Differential Diagnosis Neck pain, neck mass, shunt malfunction seems highly unlikely. Narrative Course Patient was roomed emergency department, appears quite comfortable but complaining of 14/10 pain. Patient was given Dilaudid 2 mg by mouth although he does appear quite comfortable. He has been taking oxycodone at home states this only helps for about an hour. Given the patient not having any neurologic findings no headaches no visual changes he is already had a CAT scan of the head this month as well as shunt examination series I highly doubt the patient has shunt malfunction. CT neck was performed, this was actually recommended to him a previous ER visit and he declined. I would've preferred to have IV contrast that reviewing his creatinines in the past to think the risks outweigh the possible benefits. Last [address] 01/20/17 0000 Signed Impressions: Service Date/Time: Friday, January 20, 2017 14:32 - CONCLUSION: Unremarkable study except for stable left thyroid nodule. Shira Mendez MD Results were discussed with patient and recommended continuing follow-up with Dr. Mustafa and his primary care physician Dr. Arguello. Diagnosis Primary Impression: Neck pain Referrals: Sharda Cabral MD Disposition: 01 DISCHARGE HOME Condition: Stable Bhupinder Fernandez MD Jan 20, 2017 14:15
--- NOTE | 2017-01-20 14:59 | RADRPT ---
EXAM DATE/TIME: 01/20/2017 14:32 [facility] COMPARISON: CT PULMONARY ANGIOGRAM, June 02, 2014, 8:58. INDICATIONS : Neck pain. RADIATION DOSE: 13.01 CTDIvol (mGy) MEDICAL HISTORY : Cardiovascular disease. Stroke SURGICAL HISTORY : Pacemaker. Shunt ENCOUNTER: Initial ACUITY: 1 day PAIN SCORE: 9/10 LOCATION: Right neck TECHNIQUE: Volumetric scanning of the neck was performed. Using automated exposure control and adjustment of th e mA and/or kV according to patient size, radiation dose was kept as low as reasonably achievable to obtain optimal diagnostic quality images. DICOM format image data is available electronically for re view and comparison. FINDINGS: There is no evidence for any appreciable pathological adenopathy in the patient's neck. The parotid glands, submandibular glands appear intact. The visceral compartment is grossly intact without infil trating mass. The visualized sinuses are clear. Approximate 1.8 cm solid mass is present within the left thyroid gland not significantly changed since the prior CT angiogram of the chest from 05/2014 m ost likely benign. CONCLUSION: Unremarkable study except for stable left thyroid nodule. Shira Mendez MD on January 20, 2017 at 14:52 Board Certified Radiologist. This report was verified electronically.
[2017-01-20 15:25] VITALS: BP 141/79; PULSE 60; RESP 14; O2SAT 96
== END 2017-01-20 15:30 | disposition home or self-care (01) ==
LOC: PHED 12:52
DX: M54.2 Cervicalgia (principal); E11.9 Type 2 diabetes mellitus without complications; I10 Essential (primary) hypertension; G89.29 Other chronic pain; M54.9 Dorsalgia, unspecified; Z95.0 Presence of cardiac pacemaker; Z87.442 Personal history of urinary calculi; I25.2 Old myocardial infarction
CPT/HCPCS: 70490; 99284

== ENCOUNTER 2017-01-21 11:17 | Emergency (ER) | payer MEDICARE, MEDICAID ==
[~2017-01-21] VITALS: Ht 172.7 cm; Wt 96.1 kg
[~2017-01-21 11:17] MED LIST changes: -BLOOD GLUCOSE T1 TES; -BLOOD PRESSURE1 M20; +HYDR-2374 PO; -Insulin Syringe; -LANCETS1 MI1; -PERC5TAB12 PO; -PRED20 PO
[2017-01-21 11:18] VITALS: BP 152/86; PULSE 69; RESP 17; TEMP 98.7; O2SAT 98
--- NOTE | 2017-01-21 11:47 | PD ---
HPI Chief Complaint: Back/ Neck Pain or Injury Time Seen by Provider: 11:29 Travel History International Travel<30 days: No Contact w/Intl Traveler<30days: No Traveled to known affect area: No PFSH Past Medical History Hx Anticoagulant Therapy: Yes Arthritis: Yes Asthma: No Anxiety: No Depression: Yes Heart Rhythm Problems: Yes (pacemaker) Cancer: No Cardiac Catheterization: Yes Cardiovascular Problems: Yes (3 STENTS) High Cholesterol: Yes Chemotherapy: No Chest Pain: Yes Congestive Heart Failure: No COPD: No Coronary Artery Disease: Yes Diabetes: Yes Patient Takes Glucophage: Yes Diminished Hearing: No Endocrine: Yes Gastrointestinal Disorders: No GERD: No Genitourinary: Yes ("SLOW STARTING") Headaches: Yes Hiatal Hernia: No Heparin Induced Thrombocytopen: No Hypertension: Yes Immune Disorder: No Implanted Vascular Access Dvce: Yes Kidney Stones: Yes Musculoskeletal: Yes (CHRONIC BACK PAIN) Neurologic: Yes Psychiatric: No Reproductive: No Respiratory: Yes (BRONCHITIS) Immunizations Current: Yes Migraines: Yes Myocardial Infarction: Yes Radiation Therapy: No Renal Failure: No Seizures: Yes Sickle Cell Disease: No Sleep Apnea: Yes Thyroid Disease: No Ulcer: No Tetanus Vaccination: < 5 Years Influenza Vaccination: Yes ?: Not Past Surgical History AICD: No Arteriovenous Shunt: No Body Medical Devices: "SCREWS AND PLATES" TO LEFT ARM Cardiac Surgery: Yes (PACEMAKER: FEBRUARY 2016 possible defib) Coronary Stent: Yes Ear Surgery: No Endocrine Surgery: No Eye Surgery: No Genitourinary Surgery: Yes (RIGHT KIDNEY WHEN YOUNGER, LITHROTRIPSY) Gynecologic Surgery: No Insulin Pump: No Joint Replacement: No Neurologic Surgery: Yes (since 6:30 was added on) Oral Surgery: No Pacemaker: Yes Thoracic Surgery: No Other Surgery: Yes (shunt placed Rt side of neck) Social History Alcohol Use: No Tobacco Use: No Substance Use: No Allergies-Medications (Allergen,Severity, Reaction): Coded Allergies: Morphine (Verified Allergy, Severe, "doctor stated i was unconscious and shaking", 01/21/17) ?SEIZURE Reported Meds & Prescriptions Reported Meds & Active Scripts Active Carvedilol 12.5 Mg Tab 12.5 Mg PO BID Tamsulosin (Tamsulosin HCl) 0.4 Mg Cap 0.4 Mg PO HS Plavix (Clopidogrel Bisulfate) 75 Mg Tab 75 Mg PO DAILY Carbamazepine 200 Mg Tab 200 Mg PO BID Albuterol Neb (Albuterol Sulfate) 2.5 Mg/3 Ml Neb 2.5 Mg NEB Q4HR NEB While awake Cozaar (Losartan Potassium) 25 Mg Tab 25 Mg PO DAILY Reported Hydrocodone-Acetaminophen 10-300 Tab 1 Tab PO Q4H PRN Lantus Inj (Insulin Glargine) 1,000 Unit/10 Ml Vial 25 Units SQ HS Januvia (Sitagliptin Phosphate) 100 Mg Tab 100 Mg PO DAILY Finasteride 5 Mg Tab 5 Mg PO DAILY Do not crush. Crestor (Rosuvastatin Calcium) 40 Mg Tab 40 Mg PO DAILY Hydrochlorothiazide 25 Mg Tab 25 Mg PO DAILY Glucophage (Metformin HCl) 500 Mg Tab 1,000 Mg PO BIDPC With meals Amlodipine (Amlodipine Besylate) 5 Mg Tab 10 Mg PO DAILY Data Data Last Documented VS Vital Signs Date Time Temp Pulse Resp B/P Pulse Ox O2 Delivery O2 Flow Rate FiO2 01/21/17 11:46 20 01/21/17 11:18 98.7 69 152/86 98 Bhupinder Fernandez MD Jan 21, 2017 11:47
--- NOTE | 2017-01-21 11:48 | PD ---
Data Data Last Documented VS Vital Signs Date Time Temp Pulse Resp B/P Pulse Ox O2 Delivery O2 Flow Rate FiO2 01/21/17 13:01 150/80 01/21/17 12:09 66 18 98 01/21/17 11:18 98.7 Orders Acetaminophen (Tylenol) (01/21/17 12:00) Oxycodone (Roxicodone) (01/21/17 12:30) MDM Supervised Visit with [facility]: Yes Narrative Course I, Dr. Fernandez, have reviewed the advance practice practitioner's documentation and am in agreement, met with the patient face to face, made the diagnosis, and the medical decision making was done by me. *My assessment and Findings: Patient 81-year-old male seen and examined by me today, I saw him yesterday for right-sided neck pain. 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 Again his primary history includes the worst pain of his life on his right neck, his interjected to Elva booker PA that IV Dilaudid is the only thing that works for him. This is his fourth ER visit this month for the same, he is still has no headache no visual disturbance no focalized weakness. The patient was discussed with Dr. Pepper who is on-call for Dr. Mustafa and recommends at least discussing the patient with neurosurgery. I have discussed the patient with a Chance Andersen who knows the patient quite well and states that his chronic right-sided neck pain and headaches are not from the shunt has been evaluated multiple times and they had recommended that he follow up with neurology for his chronic headaches. Dr. Andersen is satisfied at this time the shunt does not need to be tapped. I agree with Dr. Andersen that a tap is very low yield in this patient given his symptomology. I think the risks probably outweigh the benefits. The patient will be discharged with strict instructions to follow-up with his neurologist. Pain medicine was given in the emergency department. He is stable for discharge. No further workup is indicated at this time. Disposition: 01 DISCHARGE HOME Condition: Stable Bhupinder Fernandez MD Jan 21, 2017 11:48
--- NOTE | 2017-01-21 11:53 | PD ---
HPI Chief Complaint: Back/ Neck Pain or Injury Time Seen by Provider: 11:40 Travel History International Travel<30 days: No Contact w/Intl Traveler<30days: No Traveled to known affect area: No History of Present Illness HPI The patient is a 81 years old male. He complains of 2 week history of pain in the region of the right parietal scalp just behind the ear and into the region of the right supraclavicular fossa. He has a history of a ventriculoperitoneal shunt placed [address] Andersen. He has no numbness, tingling, weakness loss, of consciousness or generalized headache. He tried painkillers multiple times without any pain relief. He's had no vomiting. He's had no fever. He states the pain is constant. PFSH Past Medical History Hx Anticoagulant Therapy: Yes Arthritis: Yes Asthma: No Anxiety: No Depression: Yes Heart Rhythm Problems: Yes (pacemaker) Cancer: No Cardiac Catheterization: Yes Cardiovascular Problems: Yes (3 STENTS) High Cholesterol: Yes Chemotherapy: No Chest Pain: Yes Congestive Heart Failure: No COPD: No Coronary Artery Disease: Yes Diabetes: Yes Patient Takes Glucophage: Yes Diminished Hearing: No Endocrine: Yes Gastrointestinal Disorders: No GERD: No Genitourinary: Yes ("SLOW STARTING") Headaches: Yes Hiatal Hernia: No Heparin Induced Thrombocytopen: No Hypertension: Yes Immune Disorder: No Implanted Vascular Access Dvce: Yes Kidney Stones: Yes Musculoskeletal: Yes (CHRONIC BACK PAIN) Neurologic: Yes Psychiatric: No Reproductive: No Respiratory: Yes (BRONCHITIS) Immunizations Current: Yes Migraines: Yes Myocardial Infarction: Yes Radiation Therapy: No Renal Failure: No Seizures: Yes Sickle Cell Disease: No Sleep Apnea: Yes Thyroid Disease: No Ulcer: No Tetanus Vaccination: < 5 Years Influenza Vaccination: Yes ?: Not Past Surgical History AICD: No Arteriovenous Shunt: No Body Medical Devices: "SCREWS AND PLATES" TO LEFT ARM Cardiac Surgery: Yes (PACEMAKER: FEBRUARY 2016 possible defib) Coronary Stent: Yes Ear Surgery: No Endocrine Surgery: No Eye Surgery: No Genitourinary Surgery: Yes (RIGHT KIDNEY WHEN YOUNGER, LITHROTRIPSY) Gynecologic Surgery: No Insulin Pump: No Joint Replacement: No Neurologic Surgery: Yes (since 6:30 was added on) Oral Surgery: No Pacemaker: Yes Thoracic Surgery: No Other Surgery: Yes (shunt placed Rt side of neck) Social History Alcohol Use: No Tobacco Use: No Substance Use: No Allergies-Medications (Allergen,Severity, Reaction): Coded Allergies: Morphine (Verified Allergy, Severe, "doctor stated i was unconscious and shaking", 01/21/17) ?SEIZURE Reported Meds & Prescriptions Reported Meds & Active Scripts Active Carvedilol 12.5 Mg Tab 12.5 Mg PO BID Tamsulosin (Tamsulosin HCl) 0.4 Mg Cap 0.4 Mg PO HS Plavix (Clopidogrel Bisulfate) 75 Mg Tab 75 Mg PO DAILY Carbamazepine 200 Mg Tab 200 Mg PO BID Albuterol Neb (Albuterol Sulfate) 2.5 Mg/3 Ml Neb 2.5 Mg NEB Q4HR NEB While awake Cozaar (Losartan Potassium) 25 Mg Tab 25 Mg PO DAILY Reported Hydrocodone-Acetaminophen 10-300 Tab 1 Tab PO Q4H PRN Lantus Inj (Insulin Glargine) 1,000 Unit/10 Ml Vial 25 Units SQ HS Januvia (Sitagliptin Phosphate) 100 Mg Tab 100 Mg PO DAILY Finasteride 5 Mg Tab 5 Mg PO DAILY Do not crush. Crestor (Rosuvastatin Calcium) 40 Mg Tab 40 Mg PO DAILY Hydrochlorothiazide 25 Mg Tab 25 Mg PO DAILY Glucophage (Metformin HCl) 500 Mg Tab 1,000 Mg PO BIDPC With meals Amlodipine (Amlodipine Besylate) 5 Mg Tab 10 Mg PO DAILY Review of Systems Except as stated in HPI: all other systems reviewed are Neg General / Constitutional: No: Fever Eyes: No: Visual changes HENT: No: Headaches Cardiovascular: No: Chest Pain or Discomfort Respiratory: No: Shortness of Breath Gastrointestinal: No: Abdominal Pain Skin: No Rash Neurologic: No: Weakness Physical Exam Narrative GENERAL: Well-developed well-nourished in obvious distress. Sitting comfortably stretcher with eyes closed. SKIN: Focused skin assessment warm/dry. HEAD: Atraumatic. Normocephalic. EYES: Pupils equal and round. No scleral icterus. No injection or drainage. ENT: No nasal bleeding or discharge. Mucous membranes pink and moist. NECK: Trachea midline. No JVD. The shunt tubing is easily palpable in the right neck, he does demonstrate full nontender range of motion in his neck, no focal tenderness spot is appreciated. No overlying erythema. No midline C- spine tenderness. CARDIOVASCULAR: Regular rate and rhythm. No murmur appreciated. RESPIRATORY: No accessory muscle use. Clear to auscultation. Breath sounds equal bilaterally. GASTROINTESTINAL: Abdomen soft, non-tender, nondistended. Hepatic and splenic margins not palpable. MUSCULOSKELETAL: No obvious deformities. No clubbing. No cyanosis. No edema. NEUROLOGICAL: Awake and alert. Cranial nerves II through XII are grossly intact , 5 out of 5 strength in all 4 extremities. Cerebellar testing negative. PSYCHIATRIC: Appropriate mood and affect; insight and judgment normal. Data Data Last Documented VS Vital Signs Date Time Temp Pulse Resp B/P Pulse Ox O2 Delivery O2 Flow Rate FiO2 01/21/17 12:09 66 18 179/93 98 01/21/17 11:18 98.7 Orders Acetaminophen (Tylenol) (01/21/17 12:00) Oxycodone (Roxicodone) (01/21/17 12:30) [facility] Medical Decision Making Medical Screen Exam Complete: Yes Emergency Medical Condition: Yes Differential Diagnosis Chronic neck pain, shunt malfunction appears highly unlikely Narrative Course 81-year-old male with chief complaint of right-sided neck pain 2 weeks. Patient has been seen in the emergency department for times for the same complaint. He has had CT scan of the brain and neck as well as outpatient shunt study series. There is no indication of shunt malfunction. Patient denies fever, headache, visual changes, nausea, vomiting, altered mental status. He appears quite comfortable lying on the stretcher. His repeatedly asks for "IV Dilaudid". The case was discussed with my attending physician Dr. Fernandez who has treated the patient twice in the last 2 weeks. He spoke with Dr. Kelley the on-call neurosurgeon who recommends having the patient follow up with doctor for Fullop in office on Monday. The patient and family was spoken to at length regarding today's plan of care which would include one dose of oral oxycodone. Patient is to follow-up with his neurosurgeon on Monday. Return precautions discussed. They agree to plan Diagnosis Primary Impression: Pain of scalp Referrals: Sharda Cabral MD Additional Instructions: Take your pain medication as prescribed. Make an appointment for follow-up with the neurosurgeon on Monday. Disposition: DISCHARGE HOME Condition: Stable Elva Licea Jan 21, 2017 11:53
[2017-01-21] MEDS ORDERED: ACETAMINOPHEN 325 MG TAB PO ONE (12:00)
[2017-01-21 12:09] VITALS: BP 179/93; PULSE 66; RESP 18; O2SAT 98
[2017-01-21 13:01] VITALS: BP 150/80
== END 2017-01-21 13:09 | disposition home or self-care (01) ==
LOC: PHEFT 11:17
DX: M54.2 Cervicalgia (principal); Z98.2 Presence of cerebrospinal fluid drainage device
CPT/HCPCS: 99283

== ENCOUNTER 2017-03-10 09:04 | Emergency (ER) | payer MEDICARE, MEDICAID ==
[~2017-03-10] VITALS: Ht 172.7 cm; Wt 93.0 kg
[2017-03-10 09:11] VITALS: BP 152/77; PULSE 75; RESP 16; TEMP 99.5; O2SAT 96
[2017-03-10] MEDS ORDERED: LISI40TA PO (09:29)
[2017-03-10] MEDS ORDERED: TOPI1TAB97 PO (09:29)
[2017-03-10] MEDS ORDERED: GLIP5TAB8 PO (09:29)
[2017-03-10] MEDS ORDERED: NATE60TA PO (09:29)
[2017-03-10] MEDS ORDERED: DONE5TAB7 PO (09:29)
[2017-03-10] MEDS ORDERED: MAPA500T13 PO (09:43)
[2017-03-10] MEDS ORDERED: VALT1TAB PO (09:43)
[2017-03-10] MEDS ORDERED: OXYC1CAP PO (09:43)
--- NOTE | 2017-03-10 09:44 | PD ---
HPI Chief Complaint: Skin Problem Time Seen by Provider: 09:16 Travel History International Travel<30 days: No Contact w/Intl Traveler<30days: No Traveled to known affect area: No History of Present Illness HPI 81-year-old man who presents to the emergency department complaining of pain and burning redness and rash on one buttock and part of his perineum and half his scrotum. Symptoms started about 2 days ago. He is a lot of itching and burning. Some pain. No history of previous similar symptoms. No other complaints. PFSH Past Medical History Hx Anticoagulant Therapy: Yes Arthritis: Yes Asthma: No Anxiety: No Depression: Yes Heart Rhythm Problems: Yes (pacemaker) Cancer: No Cardiac Catheterization: Yes Cardiovascular Problems: Yes (3 STENTS) High Cholesterol: Yes Chemotherapy: No Chest Pain: Yes Congestive Heart Failure: No COPD: No Coronary Artery Disease: Yes Diabetes: Yes Patient Takes Glucophage: Yes Diminished Hearing: No Endocrine: Yes Gastrointestinal Disorders: No GERD: No Genitourinary: Yes ("SLOW STARTING") Headaches: Yes Hiatal Hernia: No Heparin Induced Thrombocytopen: No Hypertension: Yes Immune Disorder: No Implanted Vascular Access Dvce: Yes Kidney Stones: Yes Musculoskeletal: Yes (CHRONIC BACK PAIN) Neurologic: Yes Psychiatric: No Reproductive: No Respiratory: Yes (BRONCHITIS) Immunizations Current: Yes Migraines: Yes Myocardial Infarction: Yes Radiation Therapy: No Renal Failure: No Seizures: Yes Sickle Cell Disease: No Sleep Apnea: Yes Thyroid Disease: No Ulcer: No Past Surgical History AICD: No Arteriovenous Shunt: No Body Medical Devices: "SCREWS AND PLATES" TO LEFT ARM Cardiac Surgery: Yes (PACEMAKER: FEBRUARY 2016 possible defib) Coronary Stent: Yes Ear Surgery: No Endocrine Surgery: No Eye Surgery: No Genitourinary Surgery: Yes (RIGHT KIDNEY WHEN YOUNGER, LITHROTRIPSY) Gynecologic Surgery: No Insulin Pump: No Joint Replacement: No Neurologic Surgery: Yes (since 6:30 was added on) Oral Surgery: No Pacemaker: Yes Thoracic Surgery: No Other Surgery: Yes (shunt placed Rt side of neck) Social History Alcohol Use: No Tobacco Use: No Substance Use: No Allergies-Medications (Allergen,Severity, Reaction): Coded Allergies: morphine (Unverified Allergy, Severe, "doctor stated i was unconscious and shaking", 03/10/17) ?SEIZURE Reported Meds & Prescriptions Reported Meds & Active Scripts Active Carvedilol 12.5 Mg Tab 12.5 Mg PO BID Plavix (Clopidogrel Bisulfate) 75 Mg Tab 75 Mg PO DAILY Carbamazepine 200 Mg Tab 200 Mg PO BID Albuterol Neb (Albuterol Sulfate) 2.5 Mg/3 Ml Neb 2.5 Mg NEB Q4HR NEB While awake Reported Lisinopril 40 Mg Tab 40 Mg PO DAILY Glipizide 5 Mg Tab 5 Mg PO DAILY Take 30 minutes before a meal Donepezil 5 Mg Tab 5 Mg PO HS Nateglinide 60 Mg Tab 60 Mg PO TIDAC Topiramate 25 Mg Tab 25 Mg PO BID Januvia (Sitagliptin Phosphate) 100 Mg Tab 100 Mg PO DAILY Finasteride 5 Mg Tab 5 Mg PO DAILY Do not crush. Crestor (Rosuvastatin Calcium) 40 Mg Tab 40 Mg PO DAILY Glucophage (Metformin HCl) 500 Mg Tab 1,000 Mg PO BIDPC With meals Amlodipine (Amlodipine Besylate) 5 Mg Tab 10 Mg PO DAILY Review of Systems Except as stated in HPI: all other systems reviewed are Neg Physical Exam Narrative GENERAL: 81 YEAR-OLD WOMAN, NO ACUTE DISTRESS. SKIN: Warm and dry. CARDIOVASCULAR: Warm and well perfused. RESPIRATORY: Normal rate and effort. /rectal: On his right buttock toward the midline, and the perineum on just the right side, and on the right hemiscrotum, there is erythematous rash any zoster formed distribution with scattered areas of vesicles. Is no swelling or fluctuance. The area is mildly tender with some allodynia. NEUROLOGICAL: Awake and alert. No gross deficits. Data Data Last Documented VS Vital Signs Date Time Temp Pulse Resp B/P (MAP) Pulse Ox O2 Delivery O2 Flow Rate FiO2 03/10/17 09:11 99.5 75 16 152/77 (102) 96 Orders Orders Valacyclovir (Valtrex) (03/10/17 09:45) Acetaminophen (Tylenol) (03/10/17 09:45) Tramadol (Ultram) (03/10/17 09:45) MDM Medical Decision Making Medical Screen Exam Complete: Yes Emergency Medical Condition: Yes Differential Diagnosis Zoster, cellulitis, superficial skin infection, impetigo, other Narrative Course Medical decision making This 81-year-old man with zoster in his buttock compared him. We'll treat. Counseled regarding zoster. Diagnosis Primary Impression: Shingles Additional Instructions: Take Valtrex as prescribed. Take 1000 mg of Tylenol 3 times daily to help with pain. Use oxycodone sparingly as needed for severe pain. Keep the rash covered if possible to prevent transmission. Avoid women , people who have not had chickenpox or been vaccinated for chickenpox, infants, or people with compromised immune system or receiving chemotherapy. You can consider using a capsaicin cream 4 times daily. Often patient experience some initial burning with the use of the cream. Consisting use reduces the initial burning. Med/Other Pt SpecificInfo: Prescription(s) given Scripts Valacyclovir (Valtrex) 1,000 Mg Tab 1000 MG PO TID for Mgmt Viral Infection for 7 Days, #90 TAB 0 Refills Prov: Mando Hu MD 03/10/17 Acetaminophen (Mapap Extra Strength) 500 Mg Tab 1000 MG PO Q8HR Y for PAIN, #21 TAB 0 Refills Prov: Mando Hu MD 03/10/17 Oxycodone (Oxycodone) 5 Mg Cap 5 MG PO Q8H Y for PAIN, #15 CAP 0 Refills Prov: Mando Hu MD 03/10/17 Disposition: 01 DISCHARGE HOME Condition: Stable Mando Hu MD Mar 10, 2017 09:43
[2017-03-10] MEDS ORDERED: ACETAMINOPHEN 500 MG CPLT PO ONE (09:45)
[2017-03-10] MEDS ORDERED: traMADol HCL 50 MG TAB PO ONE (09:45)
[2017-03-10] MEDS ORDERED: valACYclovir HCL 500 MG TAB PO ONE (09:45)
[2017-03-11] MEDS ORDERED: PERC10TA27 PO (21:26)
[2017-04-19] MEDS ORDERED: TAMS5CAP PO (11:08)
== END 2017-03-10 10:18 | disposition home or self-care (01) ==
LOC: PHED 09:04
DX: B02.9 Zoster without complications (principal); E11.9 Type 2 diabetes mellitus without complications; I10 Essential (primary) hypertension; E78.00 Pure hypercholesterolemia, unspecified; G47.30 Sleep apnea, unspecified; I25.2 Old myocardial infarction; Z79.01 Long term (current) use of anticoagulants; Z79.84 Long term (current) use of oral hypoglycemic drugs; Z87.39 Personal history of other diseases of the musculoskeletal system and connective tissue; Z86.79 Personal history of other diseases of the circulatory system; Z87.448 Personal history of other diseases of urinary system; Z87.09 Personal history of other diseases of the respiratory system; Z86.69 Personal history of other diseases of the nervous system and sense organs; R55 Syncope and collapse; R52 Pain, unspecified; R94.31 Abnormal electrocardiogram [ECG] [EKG]
CPT/HCPCS: 99284

== ENCOUNTER 2017-03-10 16:49 | Emergency (ER) | payer MEDICARE, MEDICAID ==
[~2017-03-10 16:49] MED LIST changes: +DONE5TAB7 PO; +GLIP5TAB8 PO; +LISI40TA PO; +MAPA500T13 PO; +NATE60TA PO; +OXYC1CAP PO; +TOPI1TAB97 PO; +VALT1TAB PO
[2017-03-10 16:57] VITALS: BP 121/68; PULSE 77; RESP 18; TEMP 98.5; O2SAT 95
[2017-03-10] MEDS ORDERED: ACETAMINOPHEN/HYDROcodone 325 MG/5 MG TAB PO ONE (18:45)
[2017-03-10] MEDS ORDERED: SODIUM CHLORIDE 0.9% FLUSH 10 ML FLUSH IVF PRN (18:45)
--- NOTE | 2017-03-10 18:48 | PD ---
HPI Chief Complaint: Skin Problem Time Seen by Provider: 18:28 Travel History International Travel<30 days: No Contact w/Intl Traveler<30days: No Traveled to known affect area: No History of Present Illness HPI Patient comes in complaining of a near syncopal episode that occurred shortly after placing topical medication to his shingles rash that began yesterday. Patient states that after applying the cream he felt like this fireant's over the area that was applied. Patient states he became diaphoretic, lightheaded, and dizzy. Patient states he called 911 because he thought he might pass out. Patient denies any actual syncope. Denies any chest pain, shortness of breath, nausea, vomiting, numbness tingling or, loss or change in bowel or bladder. Patient denies anything like this in the past. Patient denies anything making it better or worse. Denies taking any pain medication for this. PFSH Past Medical History Hx Anticoagulant Therapy: Yes Arthritis: Yes Asthma: No Anxiety: No Depression: Yes Heart Rhythm Problems: Yes (pacemaker) Cancer: No Cardiac Catheterization: Yes Cardiovascular Problems: Yes High Cholesterol: Yes Chemotherapy: No Chest Pain: Yes Congestive Heart Failure: No COPD: No Coronary Artery Disease: Yes Diabetes: Yes Patient Takes Glucophage: Yes Diminished Hearing: No Endocrine: Yes Gastrointestinal Disorders: No GERD: No Genitourinary: Yes ("SLOW STARTING") Headaches: Yes Hiatal Hernia: No Heparin Induced Thrombocytopen: No Hypertension: Yes Immune Disorder: No Implanted Vascular Access Dvce: Yes Kidney Stones: Yes Musculoskeletal: Yes (CHRONIC BACK PAIN) Neurologic: Yes Psychiatric: No Reproductive: No Respiratory: Yes (BRONCHITIS) Immunizations Current: Yes Migraines: Yes Myocardial Infarction: Yes Radiation Therapy: No Renal Failure: No Seizures: Yes Sickle Cell Disease: No Sleep Apnea: Yes Thyroid Disease: No Ulcer: No Past Surgical History AICD: No Arteriovenous Shunt: No Body Medical Devices: "SCREWS AND PLATES" TO LEFT ARM Cardiac Surgery: Yes (PACEMAKER: FEBRUARY 2016 possible defib) Coronary Stent: Yes Ear Surgery: No Endocrine Surgery: No Eye Surgery: No Genitourinary Surgery: Yes (RIGHT KIDNEY WHEN YOUNGER, LITHROTRIPSY) Gynecologic Surgery: No Insulin Pump: No Joint Replacement: No Neurologic Surgery: Yes (since 6:30 was added on) Oral Surgery: No Pacemaker: Yes Thoracic Surgery: No Other Surgery: Yes (shunt placed Rt side of neck) Social History Alcohol Use: No Tobacco Use: No Substance Use: No Allergies-Medications (Allergen,Severity, Reaction): Coded Allergies: morphine (Unverified Allergy, Severe, "doctor stated i was unconscious and shaking", 03/10/17) ?SEIZURE Reported Meds & Prescriptions Reported Meds & Active Scripts Active Valtrex (Valacyclovir HCl) 1,000 Mg Tab 1,000 Mg PO TID 7 Days Mapap Extra Strength (Acetaminophen) 500 Mg Tab 1,000 Mg PO Q8HR PRN Oxycodone (Oxycodone HCl) 5 Mg Cap 5 Mg PO Q8H PRN Carvedilol 12.5 Mg Tab 12.5 Mg PO BID Plavix (Clopidogrel Bisulfate) 75 Mg Tab 75 Mg PO DAILY Carbamazepine 200 Mg Tab 200 Mg PO BID Albuterol Neb (Albuterol Sulfate) 2.5 Mg/3 Ml Neb 2.5 Mg NEB Q4HR NEB While awake Reported Lisinopril 40 Mg Tab 40 Mg PO DAILY Glipizide 5 Mg Tab 5 Mg PO DAILY Take 30 minutes before a meal Donepezil 5 Mg Tab 5 Mg PO HS Nateglinide 60 Mg Tab 60 Mg PO TIDAC Topiramate 25 Mg Tab 25 Mg PO BID Januvia (Sitagliptin Phosphate) 100 Mg Tab 100 Mg PO DAILY Finasteride 5 Mg Tab 5 Mg PO DAILY Do not crush. Crestor (Rosuvastatin Calcium) 40 Mg Tab 40 Mg PO DAILY Glucophage (Metformin HCl) 500 Mg Tab 1,000 Mg PO BIDPC With meals Amlodipine (Amlodipine Besylate) 5 Mg Tab 10 Mg PO DAILY Review of Systems Except as stated in HPI: all other systems reviewed are Neg Physical Exam Narrative GENERAL: Well-developed, well nourished, in no acute distress, and non-ill appearing. SKIN: Shingles rash noted over right buttocks and scrotum approximately S2-S3 distribution. HEAD: Atraumatic. Normocephalic. EYES: Pupils equal and round. EOMI. No scleral icterus. No injection or drainage. ENT: No nasal bleeding or discharge. Mucous membranes pink and moist. NECK: Trachea midline. Supple. No nuclear rigidity. CARDIOVASCULAR: Regular rate and rhythm. No murmur appreciated. RESPIRATORY: No accessory muscle use. No respiratory distress. Clear to auscultation. Breath sounds equal bilaterally. GASTROINTESTINAL: Abdomen soft, non-tender, nondistended, and no guarding. Hepatic and splenic margins not palpable. No pulsatile mass. MUSCULOSKELETAL: No obvious deformities. No clubbing. No cyanosis. No edema. Full range of motion. NEUROLOGICAL: Awake and alert. No obvious cranial nerve deficits. Motor grossly within normal limits. Normal speech. PSYCHIATRIC: Appropriate mood and affect; insight and judgment normal. Data Data Last Documented VS Vital Signs Date Time Temp Pulse Resp B/P (MAP) Pulse Ox O2 Delivery O2 Flow Rate FiO2 03/10/17 19:58 18 03/10/17 16:57 98.5 77 121/68 (85) 95 Orders Orders Electrocardiogram (03/10/17 17:22) Complete Blood Count With Diff (03/10/17 17:22) Iv Access Insert/Monitor (03/10/17 17:22) Electrocardiogram (03/10/17 18:37) Ckmb (Isoenzyme) Profile (03/10/17 18:37) Troponin I (03/10/17 18:37) Act Partial Throm Time (Ptt) (03/10/17 18:37) Prothrombin Time / Inr (Pt) (03/10/17 18:37) Chest, Single Ap (03/10/17 18:37) Ecg Monitoring (03/10/17 18:37) Oximetry (03/10/17 18:37) Sodium Chloride 0.9% Flush (Ns Flush) (03/10/17 18:45) Acetamin-Hydrocod 325-5 Mg ([place] 5-325 (03/10/17 18:45) Basic Metabolic Panel (Bmp) (03/10/17 18:23) CKMB (03/10/17 18:23) CKMB% (03/10/17 18:23) Hydromorphone Pf Inj (Dilaudid Pf Inj) (03/10/17 20:00) Labs Laboratory Tests Test 03/10/17 18:23 03/10/17 18:53 White Blood Count 9.4 TH/MM3 Red Blood Count 4.26 MIL/MM3 Hemoglobin 13.0 GM/DL Hematocrit 39.9 % Mean Corpuscular Volume 93.8 FL Mean Corpuscular Hemoglobin 30.4 PG Mean Corpuscular Hemoglobin Concent 32.4 % Red Cell Distribution Width 14.7 % Platelet Count 167 TH/MM3 Mean Platelet Volume 8.6 FL Neutrophils (%) (Auto) 84.4 % Lymphocytes (%) (Auto) 6.9 % Monocytes (%) (Auto) 6.1 % Eosinophils (%) (Auto) 2.0 % Basophils (%) (Auto) 0.6 % Neutrophils # (Auto) 8.0 TH/MM3 Lymphocytes # (Auto) 0.7 TH/MM3 Monocytes # (Auto) 0.6 TH/MM3 Eosinophils # (Auto) 0.2 TH/MM3 Basophils # (Auto) 0.1 TH/MM3 CBC Comment DIFF FINAL Differential Comment Blood Urea Nitrogen 27 MG/DL Creatinine 1.40 MG/DL Random Glucose 52 MG/DL Calcium Level 7.8 MG/DL Sodium Level 144 MEQ/L Potassium Level 4.1 MEQ/L Chloride Level 112 MEQ/L Carbon Dioxide Level 24.3 MEQ/L Anion Gap 8 MEQ/L Estimat Glomerular Filtration Rate 49 ML/MIN Total Creatine Kinase 112 U/L Creatine Kinase MB 2.6 NG/ML Troponin I LESS THAN 0.02 NG/ML Prothrombin Time 10.7 SEC Prothromb Time International Ratio 1.0 RATIO Activated Partial Thromboplast Time 24.3 SEC MDM Medical Decision Making Medical Screen Exam Complete: Yes Emergency Medical Condition: Yes Interpretation(s) EKG reviewed by Dr. Landry shows sinus rhythm with ventricular rate is 72. No STEMI. Differential Diagnosis Arrhythmia, electrolyte abnormality, syncope, near syncope, vasovagal syncope, acute coronary syndrome, shingles, other Narrative Course Patient was seen and examined. Initial endocrinological studies were ordered. Patient is given Lortab for pain. After the patient's labs reviewed patient was feed secondary to low blood sugar. Chest x-ray pending. Discussed patient with Dr. Landry who saw and evaluated the patient and discharged the patient. Please see his documentation for final diagnosis and disposition. Anup Medellin Mar 10, 2017 18:48
[2017-03-10 18:57] LABS: BASOPHIL # 0.1 TH/MM3 (0-0.2); BASOPHIL % 0.6 % (0.0-2.0); EOSINOPHIL # 0.2 TH/MM3 (0-0.4); HEMATOCRIT 39.9 % (39.0-51.0); HEMO FLAGS DIFF FINAL; LYMPH % 6.9 % (9.0-44.0); LYMPHOCYTE # 0.7 TH/MM3 (1.0-4.8); MEAN CELL VOLUME 93.8 FL (80.0-100.0); MEAN CORPUSCULAR HEMOGLOBIN 30.4 PG (27.0-34.0); MEAN CORPUSCULAR HGB CONC 32.4 % (32.0-36.0); MONO % 6.1 % (0.0-8.0); NEUT % 84.4 % (16.0-70.0); PLATELET COUNT 167 TH/MM3 (150-450); RED BLOOD COUNT 4.26 MIL/MM3 (4.50-5.90); RED CELL DISTRIBUTION WIDTH 14.7 % (11.6-17.2); WHITE BLOOD COUNT 9.4 TH/MM3 (4.0-11.0)
[2017-03-10 19:20] LABS: APTT (PATIENT) 24.3 SEC (24.3-30.1); PROTHROMBIN TIME - PATIENT 10.7 SEC (9.8-11.6)
[2017-03-10 19:25] LABS: ANION GAP 8 MEQ/L (5-15); BICARBONATE 24.3 MEQ/L (21.0-32.0); BLOOD UREA NITROGEN 27 MG/DL (7-18); CHLORIDE 112 MEQ/L (98-107); GLOMERULAR FILTRATION RATE 49 ML/MIN (>89); POTASSIUM 4.1 MEQ/L (3.5-5.1); SODIUM (NA) 144 MEQ/L (136-145)
[2017-03-10 19:29] LABS: CREATINE KINASE 112 U/L (39-308)
[2017-03-10 19:41] LABS: CKMB 2.6 NG/ML (0.5-3.6)
[2017-03-10 19:58] VITALS: RESP 18
[2017-03-10] MEDS ORDERED: HYDROmorphone HCL PF 1 MG/ML VIAL IV PUSH ONE (20:00)
--- NOTE | 2017-03-10 20:11 | PD ---
Data Data Last Documented VS Vital Signs Date Time Temp Pulse Resp B/P (MAP) Pulse Ox O2 Delivery O2 Flow Rate FiO2 03/10/17 19:58 18 03/10/17 16:57 98.5 77 121/68 (85) 95 Orders Orders Electrocardiogram (03/10/17 17:22) Complete Blood Count With Diff (03/10/17 17:22) Iv Access Insert/Monitor (03/10/17 17:22) Ckmb (Isoenzyme) Profile (03/10/17 18:37) Troponin I (03/10/17 18:37) Act Partial Throm Time (Ptt) (03/10/17 18:37) Prothrombin Time / Inr (Pt) (03/10/17 18:37) Chest, Single Ap (03/10/17 18:37) Ecg Monitoring (03/10/17 18:37) Oximetry (03/10/17 18:37) Sodium Chloride 0.9% Flush (Ns Flush) (03/10/17 18:45) Acetamin-Hydrocod 325-5 Mg ([place] 5-325 (03/10/17 18:45) Basic Metabolic Panel (Bmp) (03/10/17 18:23) CKMB (03/10/17 18:23) CKMB% (03/10/17 18:23) Hydromorphone Pf Inj (Dilaudid Pf Inj) (03/10/17 20:00) Labs Laboratory Tests Test 03/10/17 18:23 03/10/17 18:53 White Blood Count 9.4 TH/MM3 Red Blood Count 4.26 MIL/MM3 Hemoglobin 13.0 GM/DL Hematocrit 39.9 % Mean Corpuscular Volume 93.8 FL Mean Corpuscular Hemoglobin 30.4 PG Mean Corpuscular Hemoglobin Concent 32.4 % Red Cell Distribution Width 14.7 % Platelet Count 167 TH/MM3 Mean Platelet Volume 8.6 FL Neutrophils (%) (Auto) 84.4 % Lymphocytes (%) (Auto) 6.9 % Monocytes (%) (Auto) 6.1 % Eosinophils (%) (Auto) 2.0 % Basophils (%) (Auto) 0.6 % Neutrophils # (Auto) 8.0 TH/MM3 Lymphocytes # (Auto) 0.7 TH/MM3 Monocytes # (Auto) 0.6 TH/MM3 Eosinophils # (Auto) 0.2 TH/MM3 Basophils # (Auto) 0.1 TH/MM3 CBC Comment DIFF FINAL Differential Comment Blood Urea Nitrogen 27 MG/DL Creatinine 1.40 MG/DL Random Glucose 52 MG/DL Calcium Level 7.8 MG/DL Sodium Level 144 MEQ/L Potassium Level 4.1 MEQ/L Chloride Level 112 MEQ/L Carbon Dioxide Level 24.3 MEQ/L Anion Gap 8 MEQ/L Estimat Glomerular Filtration Rate 49 ML/MIN Total Creatine Kinase 112 U/L Creatine Kinase MB 2.6 NG/ML Troponin I LESS THAN 0.02 NG/ML Prothrombin Time 10.7 SEC Prothromb Time International Ratio 1.0 RATIO Activated Partial Thromboplast Time 24.3 SEC [facility] Medical Record Reviewed: Yes Supervised Visit with KHUSHBU: Yes Narrative Course EKG reveals a left bundle branch block with a right bundle-branch block pattern , stable I, Dr. Landry, have reviewed the advance practice practitioner's documentation and am in agreement, met with the patient face to face, made the diagnosis, and the medical decision making was done by me. *My assessment and Findings: Patient had a near syncope episode at home. Similar episodes have occurred previously. Workup here reveals the following CBC & BMP Diagram 03/10/17 18:23 Calcium Level 7.8 L Troponin undetectable At time of reassessment, 8 PM, the patient complains of pain, severe, constant in the region of the rash. Pain became much worse after applying a capsaicin cream leading to ER evaluation. Patient's main concern is time pain control. We discussed the use of the oxycodone at home. We'll control pain here. The patient will be discharged. Diagnosis Primary Impression: Pre-syncope Additional Impressions: Zoster Qualified Codes: B02.8 - Zoster with other complications Pain Referrals: Primary Care Physician 2 days Additional Instruction: PLEASE FOLLOW UP WITH PRIMARY PHYSICIAN ON MONDAY. IF RASH ABOUT BUTTOCKS AND SCROTUM WORSENS, PLEASE RETURN TO THE ER ADMISSION MAY BE REQUIRED. PLEASE USE OXYCODONE NEEDED FOR SEVERE PAIN. PLEASE TAKE NO MORE THAN SIX EXTRA STRENGTH ACETAMINOPHEN TABLETS PER DAY. Med/Other Pt SpecificInfo: No Meds Exist/No RX given Disposition: DISCHARGE HOME Condition: Stable Asher Landry MD Mar 10, 2017 20:11
--- NOTE | 2017-03-10 21:17 | RADRPT ---
EXAM DATE/TIME: 03/10/2017 19:50 [place] COMPARISON: CHEST SINGLE AP, August 19, 2016, 12:02. INDICATIONS : Syncopal episodes. MEDICAL HISTORY : Hypertension. Diabetes mellitus type II. Seizures SURGICAL HISTORY : Pacemaker. Coronary artery stent. ENCOUNTER: Initial ACUITY: 1 day PAIN SCORE: Non-responsive. LOCATION: chest FINDINGS: A single view of the chest demonstrates the lungs to be symmetrically aerated without evidence of mas s, infiltrate or effusion. The cardiomediastinal contours are unremarkable. There is a bi-lead paci ng device in place from the left subclavian approach. Shunt tubing is seen over the right chest. Osse ous structures are intact. CONCLUSION: No acute disease. Frankie Knutson MD on March 10, 2017 at 21:15 Board Certified Radiologist. This report was verified electronically.
--- NOTE | 2017-03-11 09:42 | EKG ---
Date Performed: 03/10/2017 Time Performed: 17:30:44 PTAGE: 81 years EKG: Sinus rhythm RIGHT BUNDLE BRANCH BLOCK LEFT ANTERIOR FASCICULAR BLOCK ABNORMAL ECG PREVIOUS TRACING : 08/19/2016 12.02 DOCTOR: Mando Luna Interpretating Date/Time 03/11/2017 09:42:03
[2017-03-11] MEDS ORDERED: PERC10TA27 PO (21:26)
[2017-04-19] MEDS ORDERED: TAMS5CAP PO (11:08)
== END 2017-03-10 21:21 | disposition home or self-care (01) ==
LOC: NEPE 16:49
DX: R55 Syncope and collapse (principal); B02.8 Zoster with other complications; R52 Pain, unspecified; R94.31 Abnormal electrocardiogram [ECG] [EKG]; E11.9 Type 2 diabetes mellitus without complications; I10 Essential (primary) hypertension; E78.00 Pure hypercholesterolemia, unspecified; I25.2 Old myocardial infarction; G47.30 Sleep apnea, unspecified; Z79.01 Long term (current) use of anticoagulants; Z79.84 Long term (current) use of oral hypoglycemic drugs; Z95.0 Presence of cardiac pacemaker; Z86.69 Personal history of other diseases of the nervous system and sense organs; Z87.39 Personal history of other diseases of the musculoskeletal system and connective tissue; Z86.59 Personal history of other mental and behavioral disorders; Z86.79 Personal history of other diseases of the circulatory system; Z87.448 Personal history of other diseases of urinary system; Z87.09 Personal history of other diseases of the respiratory system
CPT/HCPCS: 71010; 80048; 82550; 82552; 84484; 85025; 85610; 85730; 93005; 96374; 99285; J1170; 99284

== ENCOUNTER 2017-03-11 20:29 | Emergency (ER) | payer MEDICARE, MEDICAID ==
[~2017-03-11] VITALS: Ht 172.7 cm; Wt 93.0 kg
[~2017-03-11 20:29] MED LIST changes: -COZA25TA PO; -HYDR-2374 PO; -HYDR25TA5 PO; -LANTUS2P SQ; -TAMS0.4C4 PO
[2017-03-11 21:00] VITALS: BP 101/58; PULSE 94; RESP 16; O2SAT 96
[2017-03-11] MEDS ORDERED: LIDOCAINE 2% JELLY 30 ML TUBE TOPICAL ONE (21:00)
[2017-03-11 21:18] LABS: BLOOD, URINE NEG (NEG); GLUCOSE,URINE 100 mg/dL (NEG); KETONE, URINE NEG (NEG); NITRITE,URINE NEG (NEG); PH, URINE 5.5 (5.0-8.5)
[2017-03-11 21:26] LABS: URINE COLOR YELLOW (YELLW/STRAW)
[2017-03-11] MEDS ORDERED: PERC10TA27 PO (21:26)
--- NOTE | 2017-03-11 21:26 | PD ---
HPI Chief Complaint: Pain: Acute or Chronic Time Seen by Provider: 20:48 Travel History International Travel<30 days: No Contact w/Intl Traveler<30days: No Traveled to known affect area: No History of Present Illness HPI This 81-year-old male is complaining of severe pain in the buttock and inguinal area. He was seen yesterday on 2 occasions. He has been having a rash for 2-3 days and yesterday was diagnosed as shingles. He was started on Valtrex and was given oxycodone 5 mg for pain. The oxycodone is not helping the pain. Yesterday he applied some capsaicin to the rash and the pain became much more severe. He was seen later in the day yesterday after a near syncopal episode and lab work was done then which was unremarkable. He says he has not been able to urinate today. He does take finasteride PFSH Past Medical History Hx Anticoagulant Therapy: Yes Arthritis: Yes Asthma: No Anxiety: No Depression: Yes Heart Rhythm Problems: Yes (pacemaker) Cancer: No Cardiac Catheterization: Yes Cardiovascular Problems: Yes High Cholesterol: Yes Chemotherapy: No Chest Pain: Yes Congestive Heart Failure: No COPD: No Coronary Artery Disease: Yes Diabetes: Yes Diminished Hearing: No Endocrine: Yes Gastrointestinal Disorders: No GERD: No Genitourinary: Yes ("SLOW STARTING") Headaches: Yes Hiatal Hernia: No Heparin Induced Thrombocytopen: No Hypertension: Yes Immune Disorder: No Implanted Vascular Access Dvce: Yes Kidney Stones: Yes Musculoskeletal: Yes (CHRONIC BACK PAIN) Neurologic: Yes Psychiatric: No Reproductive: No Respiratory: Yes (BRONCHITIS) Immunizations Current: Yes Migraines: Yes Myocardial Infarction: Yes Radiation Therapy: No Renal Failure: No Seizures: Yes Sickle Cell Disease: No Sleep Apnea: Yes Thyroid Disease: No Ulcer: No Past Surgical History AICD: No Arteriovenous Shunt: No Body Medical Devices: "SCREWS AND PLATES" TO LEFT ARM Cardiac Surgery: Yes (PACEMAKER: FEBRUARY 2016 possible defib) Coronary Stent: Yes Ear Surgery: No Endocrine Surgery: No Eye Surgery: No Genitourinary Surgery: Yes (RIGHT KIDNEY WHEN YOUNGER, LITHROTRIPSY) Gynecologic Surgery: No Insulin Pump: No Joint Replacement: No Neurologic Surgery: Yes (since 6:30 was added on) Oral Surgery: No Pacemaker: Yes Thoracic Surgery: No Other Surgery: Yes (shunt placed Rt side of neck) Social History Alcohol Use: No Tobacco Use: No Substance Use: No Allergies-Medications (Allergen,Severity, Reaction): Coded Allergies: morphine (Unverified Allergy, Severe, "doctor stated i was unconscious and shaking", 03/10/17) ?SEIZURE Reported Meds & Prescriptions Reported Meds & Active Scripts Active Valtrex (Valacyclovir HCl) 1,000 Mg Tab 1,000 Mg PO TID 7 Days Mapap Extra Strength (Acetaminophen) 500 Mg Tab 1,000 Mg PO Q8HR PRN Oxycodone (Oxycodone HCl) 5 Mg Cap 5 Mg PO Q8H PRN Carvedilol 12.5 Mg Tab 12.5 Mg PO BID Plavix (Clopidogrel Bisulfate) 75 Mg Tab 75 Mg PO DAILY Carbamazepine 200 Mg Tab 200 Mg PO BID Albuterol Neb (Albuterol Sulfate) 2.5 Mg/3 Ml Neb 2.5 Mg NEB Q4HR NEB While awake Reported Lisinopril 40 Mg Tab 40 Mg PO DAILY Glipizide 5 Mg Tab 5 Mg PO DAILY Take 30 minutes before a meal Donepezil 5 Mg Tab 5 Mg PO HS Nateglinide 60 Mg Tab 60 Mg PO TIDAC Topiramate 25 Mg Tab 25 Mg PO BID Januvia (Sitagliptin Phosphate) 100 Mg Tab 100 Mg PO DAILY Finasteride 5 Mg Tab 5 Mg PO DAILY Do not crush. Crestor (Rosuvastatin Calcium) 40 Mg Tab 40 Mg PO DAILY Glucophage (Metformin HCl) 500 Mg Tab 1,000 Mg PO BIDPC With meals Amlodipine (Amlodipine Besylate) 5 Mg Tab 10 Mg PO DAILY Review of Systems General / Constitutional: No: Fever, Chills Eyes: No: Diploplia, Blurred Vision HENT: No: Headaches, Vertigo Cardiovascular: No: Chest Pain or Discomfort, Palpitations Respiratory: No: Cough, Shortness of Breath Gastrointestinal: No: Nausea, Vomiting Genitourinary: Positive: Decreased Urinary Output Skin: Positive Rash Neurologic: No: Weakness Physical Exam Narrative GENERAL: Well-developed male SKIN: Focused skin assessment warm/dry. There is a rash typical of shingles involving the medial aspect of the right buttock and the right inguinal area HEAD: Atraumatic. Normocephalic. EYES: Pupils equal and round. No scleral icterus. No injection or drainage. ENT: No nasal bleeding or discharge. Mucous membranes pink and moist. NECK: Trachea midline. No JVD. GASTROINTESTINAL: Abdomen soft, non-tender, nondistended. Hepatic and splenic margins not palpable. MUSCULOSKELETAL: No obvious deformities. No clubbing. No cyanosis. No edema. NEUROLOGICAL: Awake and alert. No obvious cranial nerve deficits. Motor grossly within normal limits. Normal speech. PSYCHIATRIC: Appropriate mood and affect; insight and judgment normal. Data Data Orders Orders Urinary Catheter Insert/Apply (03/11/17 20:59) Urinalysis - C+S If Indicated (03/11/17 20:59) Lidocaine 2% Jelly (Xylocaine 2% Jelly) (03/11/17 21:00) [facility] Medical Decision Making Medical Screen Exam Complete: Yes Emergency Medical Condition: Yes Medical Record Reviewed: Yes Differential Diagnosis Differential includes acute shingles outbreak, pain secondary to shingles Narrative Course Patient is having acute pain due to his shingles. He is on Valtrex. He is on oxycodone 5 mg which is not helping. I will increase the oxycodone 10 mg, cautioned him and his that this may make him quite sleepy and unsteady on his feet but his pain is quite severe. Consideration was given to a Lidoderm patch however this can only be used on intact skin and is not appropriate for an acute outbreak. He was complaining of inability to void. A Keen catheter was inserted and there was about 300 cc residual. We will check for infection. I thought he might benefit from an indwelling catheter however he is insistent that it be removed as his father had an indwelling catheter and ended up dying Diagnosis Primary Impression: Herpes zoster Scripts Oxycodone-Acetaminophen (Percocet) 10-325 mg Tab 1 TAB PO Q4H Y for PAIN for 28 Days, TAB 0 Refills Prov: Anselmo Davis MD 03/11/17 Disposition: 01 DISCHARGE HOME Condition: Stable Anselmo Davis MD Mar 11, 2017 21:26
[2017-03-11 21:27] LABS: COMMENT (UR) CULT NOT INDICATED; CULTURE IF INDICATED CULT NOT INDICATED; RBC, URINE 0-2 /hpf (0-3); SQUAMOUS EPITHELIAL CELL URINE 0-5 /hpf (0-5); WBC, URINE 0-2 /hpf (0-5)
[2017-03-11 22:16] VITALS: BP 124/72
[2017-04-19] MEDS ORDERED: TAMS5CAP PO (11:08)
== END 2017-03-11 22:29 | disposition home or self-care (01) ==
LOC: PHED 20:29
DX: B02.9 Zoster without complications (principal); R33.9 Retention of urine, unspecified; E11.9 Type 2 diabetes mellitus without complications; I10 Essential (primary) hypertension; E78.00 Pure hypercholesterolemia, unspecified; G47.30 Sleep apnea, unspecified; I25.2 Old myocardial infarction; Z79.01 Long term (current) use of anticoagulants; Z79.84 Long term (current) use of oral hypoglycemic drugs; Z95.0 Presence of cardiac pacemaker; Z87.39 Personal history of other diseases of the musculoskeletal system and connective tissue; Z86.59 Personal history of other mental and behavioral disorders; Z86.79 Personal history of other diseases of the circulatory system; Z87.448 Personal history of other diseases of urinary system; Z86.69 Personal history of other diseases of the nervous system and sense organs
CPT/HCPCS: 51702; 81001

== ENCOUNTER 2017-03-12 08:51 | Emergency (ER) | payer MEDICARE, MEDICAID ==
[~2017-03-12] VITALS: Ht 172.7 cm; Wt 94.0 kg
[~2017-03-12 08:51] MED LIST changes: +PERC10TA27 PO
[2017-03-12 09:01] VITALS: BP 122/69; PULSE 72; RESP 16; TEMP 98.5; O2SAT 96
--- NOTE | 2017-03-12 09:38 | PD ---
HPI Chief Complaint: Complaint Time Seen by Provider: 09:26 Travel History International Travel<30 days: No Contact w/Intl Traveler<30days: No Traveled to known affect area: No History of Present Illness HPI This patient complains of inability to urinate. Last time he urinated was last night while he was here in the emergency room. He had a catheter placed for retention but he refused to keep it in. He demanded to be removed before he left. He has not been able to urinate since. He feels suprapubic pain and distention. He also has pain from his known shingles. Symptoms severity is moderate. Duration one day. No alleviating factors PFSH Past Medical History Hx Anticoagulant Therapy: Yes (plavix) Arthritis: Yes Asthma: No Anxiety: No Depression: Yes Heart Rhythm Problems: Yes (pacemaker) Cancer: No Cardiac Catheterization: Yes Cardiovascular Problems: Yes (htn on meds, pacemaker, [place] x 3 with stents) High Cholesterol: Yes Chemotherapy: No Chest Pain: Yes Congestive Heart Failure: No COPD: No Coronary Artery Disease: Yes Diabetes: Yes (type 1) Patient Takes Glucophage: Yes Diminished Hearing: No Endocrine: Yes Gastrointestinal Disorders: No GERD: No Genitourinary: Yes ("SLOW STARTING") Headaches: Yes Hiatal Hernia: No Heparin Induced Thrombocytopen: No Hypertension: Yes Immune Disorder: No Implanted Vascular Access Dvce: Yes Kidney Stones: Yes Musculoskeletal: Yes (CHRONIC BACK PAIN) Neurologic: Yes Psychiatric: No Reproductive: No Respiratory: Yes (BRONCHITIS) Immunizations Current: Yes Migraines: Yes Myocardial Infarction: Yes Radiation Therapy: No Renal Failure: No Seizures: Yes Sickle Cell Disease: No Sleep Apnea: Yes Thyroid Disease: No Ulcer: No Past Surgical History AICD: No Arteriovenous Shunt: No Body Medical Devices: "SCREWS AND PLATES" TO LEFT ARM Cardiac Surgery: Yes (PACEMAKER: FEBRUARY 2016 possible defib) Coronary Stent: Yes Ear Surgery: No Endocrine Surgery: No Eye Surgery: No Genitourinary Surgery: Yes (RIGHT KIDNEY WHEN YOUNGER, LITHROTRIPSY) Gynecologic Surgery: No Insulin Pump: No Joint Replacement: No Neurologic Surgery: Yes (since 6:30 was added on) Oral Surgery: No Pacemaker: Yes Thoracic Surgery: No Other Surgery: Yes (shunt placed Rt side of neck) Social History Alcohol Use: No Tobacco Use: No Substance Use: No Allergies-Medications (Allergen,Severity, Reaction): Coded Allergies: morphine (Unverified Allergy, Severe, "doctor stated i was unconscious and shaking", 03/12/17) ?SEIZURE Reported Meds & Prescriptions Reported Meds & Active Scripts Active Percocet (Oxycodone-Acetaminophen) 10-325 mg Tab 1 Tab PO Q4H PRN 28 Days Valtrex (Valacyclovir HCl) 1,000 Mg Tab 1,000 Mg PO TID 7 Days Mapap Extra Strength (Acetaminophen) 500 Mg Tab 1,000 Mg PO Q8HR PRN Oxycodone (Oxycodone HCl) 5 Mg Cap 5 Mg PO Q8H PRN Carvedilol 12.5 Mg Tab 12.5 Mg PO BID Plavix (Clopidogrel Bisulfate) 75 Mg Tab 75 Mg PO DAILY Carbamazepine 200 Mg Tab 200 Mg PO BID Albuterol Neb (Albuterol Sulfate) 2.5 Mg/3 Ml Neb 2.5 Mg NEB Q4HR NEB While awake Reported Lisinopril 40 Mg Tab 40 Mg PO DAILY Glipizide 5 Mg Tab 5 Mg PO DAILY Take 30 minutes before a meal Donepezil 5 Mg Tab 5 Mg PO HS Nateglinide 60 Mg Tab 60 Mg PO TIDAC Topiramate 25 Mg Tab 25 Mg PO BID Januvia (Sitagliptin Phosphate) 100 Mg Tab 100 Mg PO DAILY Finasteride 5 Mg Tab 5 Mg PO DAILY Do not crush. Crestor (Rosuvastatin Calcium) 40 Mg Tab 40 Mg PO DAILY Glucophage (Metformin HCl) 500 Mg Tab 1,000 Mg PO BIDPC With meals Amlodipine (Amlodipine Besylate) 5 Mg Tab 10 Mg PO DAILY Review of Systems General / Constitutional: No: Fever Eyes: No: Visual changes HENT: No: Headaches Cardiovascular: No: Chest Pain or Discomfort Respiratory: No: Shortness of Breath Gastrointestinal: No: Abdominal Pain Genitourinary: Positive: Decreased Urinary Output, No: Dysuria Musculoskeletal: Positive: Pain Skin: Positive Rash Neurologic: No: Weakness Psychiatric: No: Depression Endocrine: No: Polydipsia Hematologic/Lymphatic: No: Easy Bruising Physical Exam Narrative GENERAL: Well-nourished, well-developed patient in no apparent distress. SKIN: Focused skin assessment reveals that he has a vesicular shingles rash on the right side buttock and perineal region and scrotum. Skin is Warm and dry. HEAD: Atraumatic. Normocephalic. EYES: Pupils equal and round. No scleral icterus. No injection or drainage. ENT: No nasal bleeding or discharge. Mucous membranes pink and moist. NECK: Trachea midline. No JVD. CARDIOVASCULAR: Regular rate and rhythm. No murmur appreciated. RESPIRATORY: No accessory muscle use. Clear to auscultation. Breath sounds equal bilaterally. GASTROINTESTINAL: Abdomen soft, central lower quadrant is tender with some distention. Hepatic and splenic margins not palpable. MUSCULOSKELETAL: No obvious deformities. No clubbing. No cyanosis. No edema. NEUROLOGICAL: Awake and alert. No obvious cranial nerve deficits. Motor grossly within normal limits. Normal speech. PSYCHIATRIC: Appropriate mood and affect; insight and judgment normal. Data Data Last Documented VS Vital Signs Date Time Temp Pulse Resp B/P (MAP) Pulse Ox O2 Delivery O2 Flow Rate FiO2 03/12/17 10:37 67 18 142/79 (100) 94 Room Air 03/12/17 09:01 98.5 Orders Orders Urinary Catheter Insert/Apply (03/12/17 09:33) [facility] Medical Decision Making Medical Screen Exam Complete: Yes Emergency Medical Condition: Yes Medical Record Reviewed: Yes Differential Diagnosis Urinary retention, BPH, urethral stricture Narrative Course I have reviewed the patient's electronic medical record. Reviewed his visit from last night and Dr. Zeng's dictation Keen catheter placed Put out 1300 cc of clear yellow urine He felt much better right afterwards We are going to switch him to a leg bag Will follow with urology Diagnosis Primary Impression: Acute urinary retention Additional Impression: Shingles Qualified Codes: B02.8 - Zoster with other complications Additional Instructions: Follow-up with urology Med/Other Pt SpecificInfo: Other Disposition: 01 DISCHARGE HOME Condition: Stable Jose Chen MD Mar 12, 2017 09:38
[2017-03-12 10:37] VITALS: BP 142/79; PULSE 67; RESP 18; O2SAT 94
[2017-03-12 12:01] VITALS: BP 140/82; TEMP 99.4
[2017-04-19] MEDS ORDERED: TAMS5CAP PO (11:08)
== END 2017-03-12 12:05 | disposition home or self-care (01) ==
LOC: PHED 08:51
DX: R33.8 Other retention of urine (principal); B02.8 Zoster with other complications; I10 Essential (primary) hypertension; I25.2 Old myocardial infarction; I25.10 Atherosclerotic heart disease of native coronary artery without angina pectoris; E11.9 Type 2 diabetes mellitus without complications; Z79.01 Long term (current) use of anticoagulants
CPT/HCPCS: 51702

== ENCOUNTER 2017-03-17 18:56 | Emergency (ER) | payer MEDICARE, MEDICAID ==
[~2017-03-17] VITALS: Ht 172.7 cm; Wt 93.3 kg
[2017-03-17 19:02] VITALS: BP 118/64; PULSE 68; RESP 16; TEMP 98.5; O2SAT 97
[2017-03-17 19:33] VITALS: BP 118/64; PULSE 68; RESP 18; TEMP 98.5; O2SAT 97
--- NOTE | 2017-03-17 19:42 | PD ---
HPI Chief Complaint: Skin Problem Time Seen by Provider: 19:27 Travel History International Travel<30 days: No Contact w/Intl Traveler<30days: No Traveled to known affect area: No History of Present Illness HPI 81-year-old male presents to the emergency department for complaint of pain associated with shingles. Patient was diagnosed with shingles to the buttock and groin area on 03/10/17. Patient was placed on Valtrex and Percocet. Patient presents again for complaint of ongoing pain. Patient is also visited in the interim for urinary retention and has an indwelling Keen catheter. No reported fever chills nausea vomiting or decreased urine output. Patient denies other concerns or complaints. Patient complains of pain to the right buttock cleft. Patient has been tolerating his medications well. Patient has had no drainage from his shingles vesicles. No purulent drainage. 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 LEAD shunt lithotripsy no tobacco use nursing notes reviewed Hx Anticoagulant Therapy: Yes (plavix) Arthritis: Yes Asthma: No Anxiety: No Depression: Yes Heart Rhythm Problems: Yes (pacemaker) Cancer: No Cardiac Catheterization: Yes Cardiovascular Problems: Yes (htn on meds, pacemaker, [place] x 3 with stents) High Cholesterol: Yes Chemotherapy: No Chest Pain: Yes Congestive Heart Failure: No COPD: No Coronary Artery Disease: Yes Diabetes: Yes (type 1) Diminished Hearing: No Endocrine: Yes Gastrointestinal Disorders: No GERD: No Genitourinary: Yes ("SLOW STARTING") Headaches: Yes Hiatal Hernia: No Heparin Induced Thrombocytopen: No Hypertension: Yes Immune Disorder: No Implanted Vascular Access Dvce: Yes Kidney Stones: Yes Musculoskeletal: Yes (CHRONIC BACK PAIN) Neurologic: Yes Psychiatric: No Reproductive: No Respiratory: Yes (BRONCHITIS) Immunizations Current: Yes Migraines: Yes Myocardial Infarction: Yes Radiation Therapy: No Renal Failure: No Seizures: Yes Sickle Cell Disease: No Sleep Apnea: Yes Thyroid Disease: No Ulcer: No Past Surgical History AICD: No Arteriovenous Shunt: No Body Medical Devices: "SCREWS AND PLATES" TO LEFT ARM Cardiac Surgery: Yes (PACEMAKER: FEBRUARY 2016 possible defib) Coronary Stent: Yes Ear Surgery: No Endocrine Surgery: No Eye Surgery: No Genitourinary Surgery: Yes (RIGHT KIDNEY WHEN YOUNGER, LITHROTRIPSY) Gynecologic Surgery: No Insulin Pump: No Joint Replacement: No Neurologic Surgery: Yes (since 6:30 was added on) Oral Surgery: No Pacemaker: Yes Thoracic Surgery: No Other Surgery: Yes (shunt placed Rt side of neck) Social History Alcohol Use: No Tobacco Use: No Substance Use: No Allergies-Medications (Allergen,Severity, Reaction): Coded Allergies: morphine (Unverified Allergy, Severe, "doctor stated i was unconscious and shaking", 03/17/17) ?SEIZURE Reported Meds & Prescriptions Reported Meds & Active Scripts Active Valtrex (Valacyclovir HCl) 1,000 Mg Tab 1,000 Mg PO TID 7 Days Mapap Extra Strength (Acetaminophen) 500 Mg Tab 1,000 Mg PO Q8HR PRN Oxycodone (Oxycodone HCl) 5 Mg Cap 5 Mg PO Q8H PRN Carvedilol 12.5 Mg Tab 12.5 Mg PO BID Plavix (Clopidogrel Bisulfate) 75 Mg Tab 75 Mg PO DAILY Carbamazepine 200 Mg Tab 200 Mg PO BID Albuterol Neb (Albuterol Sulfate) 2.5 Mg/3 Ml Neb 2.5 Mg NEB Q4HR NEB While awake Reported Lisinopril 40 Mg Tab 40 Mg PO DAILY Glipizide 5 Mg Tab 5 Mg PO DAILY Take 30 minutes before a meal Donepezil 5 Mg Tab 5 Mg PO HS Nateglinide 60 Mg Tab 60 Mg PO TIDAC Topiramate 25 Mg Tab 25 Mg PO BID Januvia (Sitagliptin Phosphate) 100 Mg Tab 100 Mg PO DAILY Finasteride 5 Mg Tab 5 Mg PO DAILY Do not crush. Crestor (Rosuvastatin Calcium) 40 Mg Tab 40 Mg PO DAILY Glucophage (Metformin HCl) 500 Mg Tab 1,000 Mg PO BIDPC With meals Amlodipine (Amlodipine Besylate) 5 Mg Tab 10 Mg PO DAILY Review of Systems Except as stated in HPI: all other systems reviewed are Neg General / Constitutional: No: Fever, Chills HENT: No: Congestion Cardiovascular: No: Chest Pain or Discomfort Gastrointestinal: No: Vomiting, Abdominal Pain Genitourinary: Positive: Other (indwelling urinary catheter), No: Dysuria Musculoskeletal: No: Myalgias, Arthralgias Skin: Positive Rash (healing vesicular rash -scrotum skin breakdown right buttock cleft; no pustiles), No Itching Neurologic: No: Weakness Psychiatric: Positive: Anxiety Hematologic/Lymphatic: No: Lymph Node Enlargement Physical Exam Narrative GENERAL: Well-developed well-nourished obese male in no acute distress no respiratory distress SKIN: Warm and dry. Attention focused exam to the groin and buttock region identifies right groin scrotum and right buttock cleft with healing vesicular lesions consistent with history of shingles however right buttock left eye shows some skin breakdown without drainage without purulent drainage and without exposed ulceration. No induration no fluctuance. HEAD: Normocephalic. EYES: No scleral icterus. No injection or drainage. NECK: Supple, trachea midline. No JVD or lymphadenopathy. CARDIOVASCULAR: Regular rate and rhythm without murmurs, gallops, or rubs. RESPIRATORY: Breath sounds equal bilaterally. No accessory muscle use. GASTROINTESTINAL: Abdomen soft, non-tender, nondistended. : Indwelling urinary catheter no purulent drainage at the urethral meatus good urine output MUSCULOSKELETAL: No cyanosis, or edema. BACK: Nontender without obvious deformity. No CVA tenderness. Data Data Last Documented VS Vital Signs Date Time Temp Pulse Resp B/P (MAP) Pulse Ox O2 Delivery O2 Flow Rate FiO2 03/17/17 20:25 66 18 97 03/17/17 20:23 Room Air 03/17/17 19:33 98.5 MDM Medical Decision Making Medical Screen Exam Complete: Yes Emergency Medical Condition: Yes Medical Record Reviewed: Yes Differential Diagnosis Postherpetic neuralgia, shingles rash, cellulitis, UTI Narrative Course Patient with partially healing herpetic vesicular rash with some scabbing noted no fresh vesicles area of excoriation and some skin breakdown no purulent drainage; wound care with skin protectant and gauze pads applied. Symptom relief after skin protectant applied. Diagnosis Primary Impression: Shingles rash Qualified Codes: B02.8 - Zoster with other complications Additional Impressions: Herpes zoster dermatitis Contact dermatitis Qualified Codes: L24.4 - Irritant contact dermatitis due to drugs in contact with skin Referrals: Primary Care Physician call for appointment Patient Instructions: General Instructions Additional Instructions: Apply Desitin topical ointment to area of affected skin on the buttock daily and change dressing as needed if contaminated Avoid prolong sitting on the buttock rest on side relieving pressure on buttock cheek Follow-up with primary care provider call office for appointment early next week Return to the emergency department for fever change in blood sugar or any concerns Continue chronic medications as presently chronically prescribed Disposition: 01 DISCHARGE HOME Condition: Stable Leslie Osorio MD Mar 17, 2017 19:42
[2017-03-17 20:23] VITALS: BP 120/66; PULSE 66; RESP 18; O2SAT 97
[2017-03-18] MEDS ORDERED: PERC5TAB12 PO (13:53)
[2017-03-18] MEDS ORDERED: GABA100C4 PO (13:53)
[2017-03-18] MEDS ORDERED: SENN8.8L PO (13:53)
[2017-04-19] MEDS ORDERED: TAMS5CAP PO (11:08)
== END 2017-03-17 20:26 | disposition home or self-care (01) ==
LOC: PHED 18:56
DX: B02.8 Zoster with other complications (principal); L25.9 Unspecified contact dermatitis, unspecified cause; E10.9 Type 1 diabetes mellitus without complications; Z79.84 Long term (current) use of oral hypoglycemic drugs
CPT/HCPCS: 99282

== ENCOUNTER 2017-03-18 13:22 | Inpatient (IN) | payer MEDICARE, MEDICAID ==
[~2017-03-18] VITALS: Ht 172.7 cm; Wt 96.6 kg
[~2017-03-18 13:22] MED LIST changes: -PERC10TA27 PO
[2017-03-18 13:37] VITALS: BP 121/65; PULSE 71; RESP 16; TEMP 98.3; O2SAT 94
[2017-03-18] MEDS ORDERED: SENN8.8L PO (13:53)
[2017-03-18] MEDS ORDERED: PERC5TAB12 PO (13:53)
[2017-03-18] MEDS ORDERED: GABA100C4 PO (13:53)
[2017-03-18 14:29] LABS: BLOOD, URINE MOD (NEG); GLUCOSE,URINE 100 mg/dL (NEG); KETONE, URINE NEG (NEG); NITRITE,URINE NEG (NEG); PH, URINE 5.5 (5.0-8.5)
[2017-03-18 14:30] LABS: AUTOMATED NEUTROPHIL # 6.2 TH/MM3 (1.8-7.7); BASOPHIL % 0.4 % (0.0-2.0); EOSINOPHIL # 0.2 TH/MM3 (0-0.4); EOSINOPHIL % 2.6 % (0.0-4.0); HEMATOCRIT 35.8 % (39.0-51.0); HEMO FLAGS DIFF FINAL; LYMPH % 11.4 % (9.0-44.0); LYMPHOCYTE # 0.8 TH/MM3 (1.0-4.8); MEAN CELL VOLUME 92.6 FL (80.0-100.0); MEAN CORPUSCULAR HEMOGLOBIN 30.3 PG (27.0-34.0); MEAN CORPUSCULAR HGB CONC 32.8 % (32.0-36.0); MONO % 3.3 % (0.0-8.0); NEUT % 82.3 % (16.0-70.0); PLATELET COUNT 210 TH/MM3 (150-450); RED BLOOD COUNT 3.87 MIL/MM3 (4.50-5.90); RED CELL DISTRIBUTION WIDTH 14.1 % (11.6-17.2); WHITE BLOOD COUNT 7.4 TH/MM3 (4.0-11.0)
--- NOTE | 2017-03-18 14:32 | PD ---
HPI Chief Complaint: Dizziness Time Seen by Provider: 13:45 Travel History International Travel<30 days: No Contact w/Intl Traveler<30days: No Traveled to known affect area: No History of Present Illness HPI This patient is complaining of feeling lightheaded and dizzy. He is weak and tired. Patient complains of shingles pain in the genitals. Patient has been on [id number] narcotics for over a week. He denies intentional overdose or overuse. He has been taking hydrocodone or oxycodone every 6 hours. Denies fever or chest pain or syncope. He was here yesterday evening. This is a sixth visit in 9 days. He is also seen his primary and received a prescription for 120 oxycodone. Symptoms severity is moderate. No alleviating factors. Duration 3 days PFSH Past Medical History Hx Anticoagulant Therapy: Yes Arthritis: Yes Asthma: No Anxiety: No Depression: Yes Heart Rhythm Problems: Yes (pacemaker) Cancer: No Cardiac Catheterization: Yes Cardiovascular Problems: Yes High Cholesterol: Yes Chemotherapy: No Chest Pain: Yes Congestive Heart Failure: No COPD: No Coronary Artery Disease: Yes Diabetes: Yes Patient Takes Glucophage: No Diminished Hearing: No Endocrine: Yes Gastrointestinal Disorders: No GERD: No Genitourinary: Yes ("SLOW STARTING") Headaches: Yes Hiatal Hernia: No Heparin Induced Thrombocytopen: No Hypertension: Yes Immune Disorder: No Implanted Vascular Access Dvce: Yes Kidney Stones: Yes Musculoskeletal: Yes (CHRONIC BACK PAIN) Neurologic: Yes Psychiatric: No Reproductive: No Respiratory: Yes Immunizations Current: Yes Migraines: Yes Myocardial Infarction: Yes Radiation Therapy: No Renal Failure: No Seizures: Yes Sickle Cell Disease: No Sleep Apnea: Yes Thyroid Disease: No Ulcer: No Influenza Vaccination: Yes Past Surgical History AICD: No Arteriovenous Shunt: No Body Medical Devices: "SCREWS AND PLATES" TO LEFT ARM Cardiac Surgery: Yes (PACEMAKER: FEBRUARY 2016 possible defib) Coronary Stent: Yes Ear Surgery: No Endocrine Surgery: No Eye Surgery: No Genitourinary Surgery: Yes (RIGHT KIDNEY WHEN YOUNGER, LITHROTRIPSY) Gynecologic Surgery: No Insulin Pump: No Joint Replacement: No Neurologic Surgery: Yes (since 6:30 was added on) Oral Surgery: No Pacemaker: Yes Thoracic Surgery: No Other Surgery: Yes (shunt placed Rt side of neck) Social History Alcohol Use: No Tobacco Use: No Substance Use: No Allergies-Medications (Allergen,Severity, Reaction): Coded Allergies: morphine (Unverified Allergy, Severe, "doctor stated i was unconscious and shaking", 03/17/17) ?SEIZURE Reported Meds & Prescriptions Reported Meds & Active Scripts Active Valtrex (Valacyclovir HCl) 1,000 Mg Tab 1,000 Mg PO TID 7 Days Mapap Extra Strength (Acetaminophen) 500 Mg Tab 1,000 Mg PO Q8HR PRN Carvedilol 12.5 Mg Tab 12.5 Mg PO BID Plavix (Clopidogrel Bisulfate) 75 Mg Tab 75 Mg PO DAILY Carbamazepine 200 Mg Tab 200 Mg PO BID Albuterol Neb (Albuterol Sulfate) 2.5 Mg/3 Ml Neb 2.5 Mg NEB Q4HR NEB While awake Reported Senexon Liq (Sennosides) 8.8 Mg/5 Ml Liq 2 Tab PO BID Gabapentin 100 Mg Cap 200 Mg PO TID Percocet (Oxycodone-Acetaminophen) 5-325 mg Tab 1 Tab PO Q6H PRN Lisinopril 40 Mg Tab 40 Mg PO DAILY Glipizide 5 Mg Tab 5 Mg PO DAILY Take 30 minutes before a meal Donepezil 5 Mg Tab 5 Mg PO HS Nateglinide 60 Mg Tab 60 Mg PO TIDAC Topiramate 25 Mg Tab 25 Mg PO BID Januvia (Sitagliptin Phosphate) 100 Mg Tab 100 Mg PO DAILY Finasteride 5 Mg Tab 5 Mg PO DAILY Do not crush. Crestor (Rosuvastatin Calcium) 40 Mg Tab 40 Mg PO DAILY Glucophage (Metformin HCl) 500 Mg Tab 500 Mg PO BIDPC With meals Amlodipine (Amlodipine Besylate) 5 Mg Tab 10 Mg PO DAILY Review of Systems General / Constitutional: No: Fever Eyes: No: Visual changes HENT: Positive: Lightheadedness, No: Headaches Cardiovascular: No: Chest Pain or Discomfort Respiratory: No: Shortness of Breath Gastrointestinal: No: Abdominal Pain Genitourinary: No: Dysuria Musculoskeletal: Positive: Weakness, Pain Skin: No Rash Neurologic: Positive: Weakness, Dizziness Psychiatric: No: Depression Endocrine: No: Polydipsia Hematologic/Lymphatic: No: Easy Bruising Physical Exam Narrative GENERAL: Well-nourished, well-developed patient in no apparent distress. SKIN: Focused skin assessment reveals no rash and nodules. Skin is Warm and dry. HEAD: Atraumatic. Normocephalic. EYES: Pupils equal and round. No scleral icterus. No injection or drainage. ENT: No nasal bleeding or discharge. Mucous membranes pink and moist. NECK: Trachea midline. No JVD. CARDIOVASCULAR: Regular rate and rhythm. No murmur appreciated. RESPIRATORY: No accessory muscle use. Clear to auscultation. Breath sounds equal bilaterally. GASTROINTESTINAL: Abdomen soft, non-tender, nondistended. Hepatic and splenic margins not palpable. MUSCULOSKELETAL: No obvious deformities. No clubbing. No cyanosis. No edema. NEUROLOGICAL: Awake but seems confused. No obvious cranial nerve deficits. Motor grossly within normal limits. Normal speech. PSYCHIATRIC: Lethargic and child like mood and affect; insight and judgment seems a bit off . : Shingles lesions are drying up and looked improved from prior Data Data Last Documented VS Vital Signs Date Time Temp Pulse Resp B/P (MAP) Pulse Ox O2 Delivery O2 Flow Rate FiO2 03/18/17 13:37 98.3 71 16 121/65 (83) 94 Orders Orders Iv Access Insert/Monitor (03/18/17 14:10) Complete Blood Count With Diff (03/18/17 14:10) Comprehensive Metabolic Panel (03/18/17 14:10) Urinalysis - C+S If Indicated (03/18/17 14:10) Drug Screen, Random Urine (03/18/17 14:32) Alcohol (Ethanol) (03/18/17 14:32) Admit Order (Ed Use Only) (03/18/17 15:57) Labs Laboratory Tests Test 03/18/17 14:20 White Blood Count 7.4 TH/MM3 Red Blood Count 3.87 MIL/MM3 Hemoglobin 11.8 GM/DL Hematocrit 35.8 % Mean Corpuscular Volume 92.6 FL Mean Corpuscular Hemoglobin 30.3 PG Mean Corpuscular Hemoglobin Concent 32.8 % Red Cell Distribution Width 14.1 % Platelet Count 210 TH/MM3 Mean Platelet Volume 7.9 FL Neutrophils (%) (Auto) 82.3 % Lymphocytes (%) (Auto) 11.4 % Monocytes (%) (Auto) 3.3 % Eosinophils (%) (Auto) 2.6 % Basophils (%) (Auto) 0.4 % Neutrophils # (Auto) 6.2 TH/MM3 Lymphocytes # (Auto) 0.8 TH/MM3 Monocytes # (Auto) 0.2 TH/MM3 Eosinophils # (Auto) 0.2 TH/MM3 Basophils # (Auto) 0.0 TH/MM3 CBC Comment DIFF FINAL Differential Comment Urine Collection Type CLEAN CATCH Urine Color YELLOW Urine Turbidity CLEAR Urine pH 5.5 Urine Specific [place] 1.015 Urine Protein 30 mg/dL Urine Glucose (UA) 100 mg/dL Urine Ketones NEG mg/dL Urine Occult Blood MOD Urine Nitrite NEG Urine Bilirubin NEG Urine Leukocyte Esterase NEG Urine RBC 15-19 /hpf Urine Squamous Epithelial Cells 0-5 /hpf Microscopic Urinalysis Comment CULT NOT INDICATED Urine Collection Time 14:20 Blood Urea Nitrogen 25 MG/DL Creatinine 1.40 MG/DL Random Glucose 243 MG/DL Total Protein 6.7 GM/DL Albumin 3.0 GM/DL Calcium Level 7.8 MG/DL Alkaline Phosphatase 113 U/L Aspartate Amino Transf (AST/SGOT) 16 U/L Alanine Aminotransferase (ALT/SGPT) 26 U/L Total Bilirubin 0.2 MG/DL Sodium Level 137 MEQ/L Potassium Level 4.0 MEQ/L Chloride Level 105 MEQ/L Carbon Dioxide Level 24.4 MEQ/L Anion Gap 8 MEQ/L Estimat Glomerular Filtration Rate 49 ML/MIN Urine Barbiturates Screen NEG Urine Amphetamines Screen NEG Urine Benzodiazepines Screen NEG Urine Cocaine Screen NEG Urine Cannabinoids Screen NEG Ethyl Alcohol Level LESS THAN 5 MG/DL MDM Medical Decision Making Medical Screen Exam Complete: Yes Emergency Medical Condition: Yes Medical Record Reviewed: Yes Differential Diagnosis Overmedication, overdose, medication side effect, hyponatremia, UTI Narrative Course I have reviewed the patient's electronic medical record. Patient's been here 6 times in the last 9 days IV placed CBC essentially normal Metabolic profile shows mild renal insufficiency improved from prior and hyperglycemia of 243 LFTs are normal Urinalysis shows a few red cells but no infection Urine drug screen does not show anything unexpected, negative except for opiates which is pending but he is been taking them [id number] Alcohol is negative I believe this patient is significantly overmedicated. I can't think of any other obvious reason for his presentation of confusion or lethargy and generalized weakness. He is not able to walk at all. I tried to ambulate him in the department and that was a failure and he will certainly fall over if sent home. Even using a cane with 2 helpers he was very unsteady. He will require 23 hour observation for his altered mental status due to overmedication. I have added brain CT given his history of ECHOCARDIOGRAPHER shunt and will discuss with the attending physician who I paged. He does not have headache or focal neurologic deficit. He has global symptoms. Diagnosis Primary Impression: Altered mental status Qualified Codes: R41.0 - Disorientation, unspecified Additional Impressions: S/P ECHOCARDIOGRAPHER shunt Medication side effects Qualified Codes: T88.7XXA - Unspecified adverse effect of drug or medicament, initial encounter Generalized weakness Admitting Information Admitting Physician Requests: Observation Jose Chen MD Mar 18, 2017 14:32
[2017-03-18 14:37] LABS: CHLORIDE 105 MEQ/L (98-107); SODIUM (NA) 137 MEQ/L (136-145)
[2017-03-18 14:38] LABS: COMMENT (UR) CULT NOT INDICATED; CULTURE IF INDICATED CULT NOT INDICATED; METHOD OF COLLECTION CLEAN CATCH; RBC, URINE 15-19 /hpf (0-3); SQUAMOUS EPITHELIAL CELL URINE 0-5 /hpf (0-5); URINE COLOR YELLOW (YELLW/STRAW)
[2017-03-18 14:41] LABS: ANION GAP 8 MEQ/L (5-15); BICARBONATE 24.4 MEQ/L (21.0-32.0); BLOOD UREA NITROGEN 25 MG/DL (7-18)
[2017-03-18 14:44] LABS: ALT (GPT) 26 U/L (12-78); AST (GOT) 16 U/L (15-37); GLOMERULAR FILTRATION RATE 49 ML/MIN (>89)
[2017-03-18 14:46] LABS: TOTAL BILIRUBIN ADULT 0.2 MG/DL (0.2-1.0)
[2017-03-18 14:47] LABS: ALKALINE PHOSPHATASE 113 U/L (45-117)
[2017-03-18] MEDS: SODIUM CHLOR 0.9% 1000 ML INJ 1,000 ML IV SCH (16:09)
[2017-03-18] MEDS ORDERED: SODIUM CHLORIDE 0.9% FLUSH 10 ML FLUSH IV FLUSH PRN (16:15)
[2017-03-18] MEDS ORDERED: SENNOSIDES 8.6 MG TAB PO PRN (16:15)
[2017-03-18] MEDS ORDERED: LACTULOSE SYRUP 20 GM/30 ML CUP PO PRN (16:15)
[2017-03-18] MEDS ORDERED: ONDANSETRON HCL 4 MG/2 ML VIAL IVP PRN (16:15)
[2017-03-18] MEDS ORDERED: NALOXONE HCL 0.4 MG/ML AMP IV PRN (16:15)
--- NOTE | 2017-03-18 16:24 | HHI.HP ---
HPI Service [facility] Primary Care Physician No Primary Care Physician Admission Diagnosis AMS from overmedication Diagnoses: Travel History International Travel<30 Days: No Contact w/Intl Traveler <30 Da: No Traveled to Known Affected Are: No History of Present Illness Mr. Yousif is a 81-year-old male. He is lethargic when seen and history is limited. He is mostly reporting and perseverating about genital pain related to shingles. He was brought in secondary to altered mental status. His altered mental status is related to lethargy which is thought to be secondary to narcotic effect. He's been using narcotics to try to help treat his pain from genital shingles. Some pain control is present but he had a graduated decline in his mental state so the monitor narcotics is been using is likely too much. CT of the brain shows stability without evidence of bleed, ischemia, or other pathology. Patient denies any chest pain. No other complaints. Review of Systems ROS Limitations: Intoxication, Altered Mental Status, Poor Historian Genitourinary: COMPLAINS OF: Testicular Pain Past Family Social History Past Medical History Osteoarthritis Depression Cardiac arrhythmia Coronary artery disease Old myocardial infarction Hyperlipidemia Back pain BPH Sleep apnea History of migraine headaches Diabetes mellitus type 2 Past Surgical History Pacemaker placement in 2016 Coronary stents Lithotripsy Reported Medications Reported Meds & Active Scripts Active Valtrex (Valacyclovir HCl) 1,000 Mg Tab 1,000 Mg PO TID 7 Days Mapap Extra Strength (Acetaminophen) 500 Mg Tab 1,000 Mg PO Q8HR PRN Carvedilol 12.5 Mg Tab 12.5 Mg PO BID Plavix (Clopidogrel Bisulfate) 75 Mg Tab 75 Mg PO DAILY Carbamazepine 200 Mg Tab 200 Mg PO BID Albuterol Neb (Albuterol Sulfate) 2.5 Mg/3 Ml Neb 2.5 Mg NEB Q4HR NEB While awake Reported Senexon Liq (Sennosides) 8.8 Mg/5 Ml Liq 2 Tab PO BID Gabapentin 100 Mg Cap 200 Mg PO TID Percocet (Oxycodone-Acetaminophen) 5-325 mg Tab 1 Tab PO Q6H PRN Lisinopril 40 Mg Tab 40 Mg PO DAILY Glipizide 5 Mg Tab 5 Mg PO DAILY Take 30 minutes before a meal Donepezil 5 Mg Tab 5 Mg PO HS Nateglinide 60 Mg Tab 60 Mg PO TIDAC Topiramate 25 Mg Tab 25 Mg PO BID Januvia (Sitagliptin Phosphate) 100 Mg Tab 100 Mg PO DAILY Finasteride 5 Mg Tab 5 Mg PO DAILY Do not crush. Crestor (Rosuvastatin Calcium) 40 Mg Tab 40 Mg PO DAILY Glucophage (Metformin HCl) 500 Mg Tab 500 Mg PO BIDPC With meals Amlodipine (Amlodipine Besylate) 5 Mg Tab 10 Mg PO DAILY Allergies: Coded Allergies: morphine (Unverified Allergy, Severe, "doctor stated i was unconscious and shaking", 03/17/17) ?SEIZURE Family History Patient unable to provide his family history given his lethargic state Social History No smoking No alcohol abuse No illicit drug abuse Physical Exam Vital Signs Vital Signs Date Time Temp Pulse Resp B/P (MAP) Pulse Ox O2 Delivery O2 Flow Rate FiO2 03/18/17 13:37 98.3 71 16 121/65 (83) 94 Physical Exam GENERAL: NAD, A&Ox0 HEAD: Normocephalic. NECK: Supple, trachea midline. No lymphadenopathy. EYES: No scleral icterus. No injection or drainage. CARDIOVASCULAR: Regular rate and rhythm without murmurs, gallops, or rubs. RESPIRATORY: Breath sounds equal bilaterally. No accessory muscle use. GASTROINTESTINAL: Abdomen soft, non-tender, nondistended. MUSCULOSKELETAL: No cyanosis, or edema. SKIN: Warm and dry. Shingles lesions at genitals. NEURO: No focal neurological deficitis. Laboratory Laboratory Tests Test 03/18/17 14:20 White Blood Count 7.4 Red Blood Count 3.87 Hemoglobin 11.8 Hematocrit 35.8 Mean Corpuscular Volume 92.6 Mean Corpuscular Hemoglobin 30.3 Mean Corpuscular Hemoglobin Concent 32.8 Red Cell Distribution Width 14.1 Platelet Count 210 Mean Platelet Volume 7.9 Neutrophils (%) (Auto) 82.3 Lymphocytes (%) (Auto) 11.4 Monocytes (%) (Auto) 3.3 Eosinophils (%) (Auto) 2.6 Basophils (%) (Auto) 0.4 Neutrophils # (Auto) 6.2 Lymphocytes # (Auto) 0.8 Monocytes # (Auto) 0.2 Eosinophils # (Auto) 0.2 Basophils # (Auto) 0.0 CBC Comment DIFF FINAL Differential Comment Urine Collection Type CLEAN CATCH Urine Color YELLOW Urine Turbidity CLEAR Urine pH 5.5 Urine Specific [place] 1.015 Urine Protein 30 Urine Glucose (UA) 100 Urine Ketones NEG Urine Occult Blood MOD Urine Nitrite NEG Urine Bilirubin NEG Urine Leukocyte Esterase NEG Urine RBC 15-19 Urine Squamous Epithelial Cells 0-5 Microscopic Urinalysis Comment CULT NOT INDICATED Urine Collection Time 14:20 Blood Urea Nitrogen 25 Creatinine 1.40 Random Glucose 243 Total Protein 6.7 Albumin 3.0 Calcium Level 7.8 Alkaline Phosphatase 113 Aspartate Amino Transf (AST/SGOT) 16 Alanine Aminotransferase (ALT/SGPT) 26 Total Bilirubin 0.2 Sodium Level 137 Potassium Level 4.0 Chloride Level 105 Carbon Dioxide Level 24.4 Anion Gap 8 Estimat Glomerular Filtration Rate 49 Urine Barbiturates Screen NEG Urine Amphetamines Screen NEG Urine Benzodiazepines Screen NEG Urine Cocaine Screen NEG Urine Cannabinoids Screen NEG Ethyl Alcohol Level LESS THAN 5 Result Diagram: 03/18/17 1420 03/18/17 1420 Caprini VTE Risk Assessment Caprini VTE Risk Assessment: No/Low Risk (score <= 1) Caprini Risk Assessment Model Point Value = 1 Point Value = 2 Point Value = 3 Point Value = 5 Age 41-60 Minor surgery BMI > 25 kg/m2 Swollen legs Varicose veins or History of unexplained or recurrent spontaneous Oral contraceptives or hormone replacement Sepsis (< 1 month) Serious lung disease, including pneumonia (< 1 month) Abnormal pulmonary function Acute myocardial infarction Congestive heart failure (< 1 month) History of inflammatory bowel disease Medical patient at bed rest Age 61-74 Arthroscopic surgery Major open surgery (> 45 min) Laparoscopic surgery (> 45 min) Malignancy Confined to bed (> 72 hours) Immobilizing plaster cast Central venous access Age >= 75 History of VTE Family history of VTE Factor V Leiden Prothrombin [id number] Lupus anticoagulant Anticardiolipin antibodies Elevated serum homocysteine Heparin-induced thrombocytopenia Other congenital or acquired thrombophilia Stroke (< 1 month) Elective arthroplasty Hip, pelvis, or leg fracture Acute spinal cord injury (< 1 month) Prophylaxis Regimen Total Risk Factor Score Risk Level Prophylaxis Regimen 0-1 Low Early ambulation 2 Moderate Order ONE of the following: *Sequential Compression Device (SCD) *Heparin 5000 units SQ BID 3-4 Higher Order ONE of the following medications: *Heparin 5000 units SQ TID *Enoxaparin/Lovenox 40 mg SQ daily (WT < 150 kg, CrCl > 30 mL/min) *Enoxaparin/Lovenox 30 mg SQ daily (WT < 150 kg, CrCl > 10-29 mL/min) *Enoxaparin/Lovenox 30 mg SQ BID (WT < 150 kg, CrCl > 30 mL/min) AND/OR *Sequential Compression Device (SCD) 5 or more Highest Order ONE of the following medications: *Heparin 5000 units SQ TID (Preferred with Epidurals) *Enoxaparin/Lovenox 40 mg SQ daily (WT < 150 kg, CrCl > 30 mL/min) *Enoxaparin/Lovenox 30 mg SQ daily (WT < 150 kg, CrCl > 10-29 mL/min) *Enoxaparin/Lovenox 30 mg SQ BID (WT < 150 kg, CrCl > 30 mL/min) AND *Sequential Compression Device (SCD) Assessment and Plan Problem List: (1) Acute delirium ICD Code: R41.0 - Disorientation, unspecified Assessment and Plan Assessment and plan 81-year-old male admitted secondary to acute delirium Acute delirium Likely secondary to narcotic use Involuntary overdose Narcotics held, the patient is in pain Start lower dose pain treatment, tramadol for now May consider low-dose [place] if patient's mental state improves NSAIDs for treatment could be considered if renal function improves CT of brain pending Follow clinically for improvement Once his clinical status improves he may be discharged He should use less narcotics at time of discharge Shingles Genital location Pain management Cardiac arrhythmia Coronary artery disease Old myocardial infarction Follow on telemetry Pacemaker is present Hyperlipidemia No change to baseline treatment Follows in outpatient Back pain Holding narcotics for now Follow clinically BPH Acute kidney injury [place] I may be secondary to dehydration but BPH could accentuate this issue Monitor for adequate urine output Follow renal function Sleep apnea Oxygen at night Diabetes mellitus type 2 Follow blood sugars Insulin sliding scale Diabetic diet Osteoarthritis Depression History of migraine headaches Follow clinically DVT prophylaxis SCDs Hold blood thinners for now until brain scan to determine Asher Hopper MD Mar 18, 2017 16:24
[2017-03-18 16:45] VITALS: BP 125/73
--- NOTE | 2017-03-18 16:49 | RADRPT ---
EXAM DATE/TIME: 03/18/2017 16:20 [facility] COMPARISON: MRI BRAIN W & W/O CONTRAST, August 02, 2016, 15:04. CT BRAIN W/O CONTRAST, January 08, 2017, 14:41. INDICATIONS : Dizziness, altered mental status. RADIATION DOSE: 59.87 CTDIvol (mGy) MEDICAL HISTORY : Cardiovascular disease. SURGICAL HISTORY : Pace maker, Shunt. ENCOUNTER: Initial ACUITY: 2 days PAIN SCALE: 0/10 LOCATION: cranial TECHNIQUE: Multiple contiguous axial images were obtained of the head. Using automated exposure control and adj ustment of the mA and/or kV according to patient size, radiation dose was kept as low as reasonably a chievable to obtain optimal diagnostic quality images. DICOM format image data is available electro nically for review and comparison. FINDINGS: The brain is stable in appearance. Right frontal ventriculostomy is noted with tip overlying frontal horn right lateral ventricle. Gliosis is present along the ventriculostomy tract. There is hypodensit y asymmetric to the left in the tectum. There is no evidence of intracranial hemorrhage. Findings sug gest acute infarction. Cranial structures are stable and benign. CONCLUSION: Stable brain appearance. Frankie Hilton MD on March 18, 2017 at 16:44 Board Certified Radiologist. This report was verified electronically.
[2017-03-18 18:00] VITALS: BP 125/77; PULSE 60; RESP 18; TEMP 97.5; O2SAT 97
[2017-03-18] MEDS: SODIUM CHLORIDE 0.9% FLUSH 10 ML FLUSH IV FLUSH SCH (19:56)
[2017-03-18] MEDS: traMADol HCL 50 MG TAB PO PRN ×2 (19:56→23:46)
[2017-03-18 20:00] VITALS: BP 142/85; PULSE 69; RESP 18; TEMP 97.9; O2SAT 95
[2017-03-18] MEDS ORDERED: ACETAMINOPHEN/HYDROcodone 325 MG/5 MG TAB PO ONE (22:30)
[2017-03-18 23:00] VITALS: PULSE 68
[2017-03-19] VITALS (8 sets, daily range): BP systolic 130–174; BP diastolic 70–104; PULSE 59–74; RESP 18–20; TEMP 96.2–98.7; O2SAT 94–100
[2017-03-19] MEDS ORDERED: ZOLPIDEM TARTRATE 5 MG TAB PO ONE
[2017-03-19] MEDS ORDERED: ACETAMINOPHEN 325 MG TAB PO ONE
[2017-03-19] MEDS ORDERED: LIDOCAINE-PRILOCAIN 2.5% CREAM 5 GM TUBE TOPICAL ONE
[2017-03-19] MEDS: SODIUM CHLOR 0.9% 1000 ML INJ 1,000 ML IV SCH ×3 (03:33→22:16)
[2017-03-19] MEDS: traMADol HCL 50 MG TAB PO PRN ×2 (03:33→07:55)
[2017-03-19 06:47] LABS: AUTOMATED NEUTROPHIL # 4.5 TH/MM3 (1.8-7.7); BASOPHIL % 0.6 % (0.0-2.0); EOSINOPHIL # 0.2 TH/MM3 (0-0.4); EOSINOPHIL % 3.4 % (0.0-4.0); HEMO FLAGS DIFF FINAL; LYMPH % 17.7 % (9.0-44.0); LYMPHOCYTE # 1.1 TH/MM3 (1.0-4.8); MEAN CORPUSCULAR HEMOGLOBIN 30.3 PG (27.0-34.0); MEAN CORPUSCULAR HGB CONC 32.9 % (32.0-36.0); MONO % 5.4 % (0.0-8.0); NEUT % 72.9 % (16.0-70.0); PLATELET COUNT 200 TH/MM3 (150-450); RED CELL DISTRIBUTION WIDTH 14.1 % (11.6-17.2); WHITE BLOOD COUNT 6.1 TH/MM3 (4.0-11.0)
[2017-03-19] MEDS ORDERED: ACETAMINOPHEN 500 MG CPLT PO PRN (08:15)
[2017-03-19] MEDS ORDERED: valACYclovir HCL 500 MG TAB PO SCH (09:00)
[2017-03-19] MEDS ORDERED: ATORVASTATIN 80 MG TAB PO SCH (09:00)
[2017-03-19] MEDS: SODIUM CHLORIDE 0.9% FLUSH 10 ML FLUSH IV FLUSH SCH ×2 (09:00→21:00)
[2017-03-19] MEDS ORDERED: ACETAMINOPHEN/HYDROcodone 325 MG/5 MG TAB PO PRN (09:30)
[2017-03-19] MEDS: metFORMIN HCL 500 MG TAB PO SCH ×2 (09:44→17:39)
[2017-03-19] MEDS: GABAPENTIN 100 MG CAP PO SCH ×3 (09:44→17:38)
[2017-03-19] MEDS: ACETAMINOPHEN/HYDROcodone 325 MG/10 MG TAB PO PRN ×4 (09:45→22:15)
[2017-03-19] MEDS: glipiZIDE 5 MG TAB PO SCH (09:45)
[2017-03-19] MEDS: TOPIRAMATE 25 MG TAB PO SCH ×2 (09:45→22:15)
[2017-03-19] MEDS: LISINOPRIL 20 MG TAB PO SCH (09:45)
[2017-03-19] MEDS: CLOPIDOGREL 75 MG TAB PO SCH (09:46)
[2017-03-19] MEDS: CARVEDILOL 12.5 MG TAB PO SCH ×2 (09:46→22:15)
[2017-03-19] MEDS: carBAMazepine 200 MG TAB PO SCH ×2 (09:46→22:14)
[2017-03-19] MEDS: FINASTERIDE 5 MG TAB PO SCH (09:46)
[2017-03-19] MEDS: SENNOSIDES SYRUP 8.8 MG/5 ML CUP PO SCH ×2 (10:00→22:14)
[2017-03-19] MEDS: ATORVASTATIN 40 MG TAB PO SCH (10:04)
--- NOTE | 2017-03-19 10:44 | HHI.PR ---
Subjective Remarks Mental status has returned to prior baseline. However, his pain level is severe and not controlled with tramadol. No other complaints today. His had problems with morphine in the past and now has a problem with Percocet causing confusion. We discussed [place] as a trial option. Objective Vital Signs Date Time Temp Pulse Resp B/P (MAP) Pulse Ox O2 Delivery O2 Flow Rate FiO2 03/19/17 08:55 18 03/19/17 08:00 96.7 62 20 174/104 (127) 97 03/19/17 04:00 96.6 61 18 169/93 (118) 96 03/19/17 00:00 97.6 69 18 159/98 (118) 94 03/18/17 23:00 68 03/18/17 20:00 97.9 69 18 142/85 (104) 95 03/18/17 18:00 97.5 60 18 125/77 (93) 97 03/18/17 16:45 78 16 125/73 (90) 96 03/18/17 13:37 98.3 71 16 121/65 (83) 94 I/O 03/18/17 03/18/17 03/18/17 03/19/17 03/19/17 03/19/17 07:00 15:00 23:00 07:00 15:00 23:00 Intake Total 1480 ml Output Total 1100 ml 1000 ml Balance -1100 ml 480 ml Intake Oral 480 ml IV Total 1000 ml Output Urine Total 1100 ml 1000 ml # Voids 1 # Bowel Movements 1 Result Diagram: 03/19/17 0623 03/18/17 1420 Objective Remarks GENERAL: NAD, A&Ox3 HEAD: Normocephalic. NECK: Supple, trachea midline. No lymphadenopathy. EYES: No scleral icterus. No injection or drainage. CARDIOVASCULAR: Regular rate and rhythm without murmurs, gallops, or rubs. RESPIRATORY: Breath sounds equal bilaterally. No accessory muscle use. GASTROINTESTINAL: Abdomen soft, non-tender, nondistended. MUSCULOSKELETAL: No cyanosis, or edema. SKIN: Warm and dry. Shingles lesions of the genitals, catheter in place. NEURO: No focal neurological deficitis. A/P Problem List: (1) Altered mental status ICD Code: R41.82 - Altered mental status, unspecified Status: Acute (2) Medication side effects ICD Code: T88.7XXA - Unspecified adverse effect of drug or medicament, initial encounter Status: Acute (3) Acute delirium ICD Code: R41.0 - Disorientation, unspecified Assessment and Plan Assessment and plan 81-year-old male admitted secondary to acute delirium. Delirium improved with cessation of Percocet. Pain is not controlled off narcotics. Trial of [place] provided today. If this works patient can be discharged once pharmacies reopen. Acute delirium Likely secondary to narcotic use Involuntary overdose [place] provided as a pain treatment starting today Monitor for any worsening of mental status Tramadol discontinued, it did not work for pain control NSAIDs for treatment could be considered if renal function improves CT of brain completed and shows no pathology Follow clinically for improvement Once his clinical status improves he may be discharged [place] works as a treatment without inducing confusion pharmacies will have to be opened prior to his ability to obtain this at discharge Shingles Genital location Pain management Cardiac arrhythmia Coronary artery disease Old myocardial infarction Follow on telemetry Pacemaker is present Hyperlipidemia No change to baseline treatment Follows in outpatient Back pain Holding narcotics for now Follow clinically BPH Acute kidney injury [place] I may be secondary to dehydration but BPH could accentuate this issue Monitor for adequate urine output Follow renal function Sleep apnea Oxygen at night Diabetes mellitus type 2 Follow blood sugars Insulin sliding scale Diabetic diet History of spinal tumor 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
[2017-03-19] MEDS: RESP: ALBUTEROL 2.5 MG/3 ML NEB (SCH) NEB ×4 (11:13→22:53)
[2017-03-19] MEDS ORDERED: NATEGLINIDE 60 MG PO SCH (12:00)
[2017-03-19] MEDS: ACYCLOVIR 800 MG TAB PO SCH ×3 (13:10→22:15)
[2017-03-19] MEDS: DONEPEZIL HCL 5 MG TAB PO SCH (22:15)
[2017-03-20] VITALS (7 sets, daily range): BP systolic 106–157; BP diastolic 70–86; PULSE 58–89; RESP 16–20; TEMP 96.8–98.3; O2SAT 94–100
[2017-03-20] MEDS: RESP: ALBUTEROL 2.5 MG/3 ML NEB (SCH) NEB ×6 (03:54→23:36)
[2017-03-20] MEDS: ACYCLOVIR 800 MG TAB PO SCH ×5 (04:11→21:44)
[2017-03-20] MEDS: ACETAMINOPHEN/HYDROcodone 325 MG/10 MG TAB PO PRN ×5 (04:11→21:43)
[2017-03-20] MEDS: SODIUM CHLOR 0.9% 1000 ML INJ 1,000 ML IV SCH (08:40)
[2017-03-20] MEDS: metFORMIN HCL 500 MG TAB PO SCH ×2 (08:40→17:21)
[2017-03-20] MEDS: SENNOSIDES SYRUP 8.8 MG/5 ML CUP PO SCH ×2 (08:42→21:43)
[2017-03-20] MEDS: ATORVASTATIN 40 MG TAB PO SCH (08:42)
[2017-03-20] MEDS: TOPIRAMATE 25 MG TAB PO SCH ×2 (08:42→21:44)
[2017-03-20] MEDS: LISINOPRIL 20 MG TAB PO SCH (08:42)
[2017-03-20] MEDS: FINASTERIDE 5 MG TAB PO SCH (08:43)
[2017-03-20] MEDS: GABAPENTIN 100 MG CAP PO SCH ×3 (08:43→17:22)
[2017-03-20] MEDS: CLOPIDOGREL 75 MG TAB PO SCH (08:43)
[2017-03-20] MEDS: carBAMazepine 200 MG TAB PO SCH ×2 (08:43→21:44)
[2017-03-20] MEDS: glipiZIDE 5 MG TAB PO SCH (08:43)
[2017-03-20] MEDS: SODIUM CHLORIDE 0.9% FLUSH 10 ML FLUSH IV FLUSH SCH ×2 (08:44→21:44)
[2017-03-20 10:20] LABS: POTASSIUM 3.7 MEQ/L (3.5-5.1)
[2017-03-20 10:23] LABS: BICARBONATE 23.6 MEQ/L (21.0-32.0)
[2017-03-20] MEDS: CARVEDILOL 12.5 MG TAB PO SCH ×2 (12:56→21:44)
--- NOTE | 2017-03-20 13:55 | HHI.PR ---
Subjective Remarks Patient is complaining of 14 out of 10 pain in his scrotum and right lower back/ buttock due to the shingles. He denies any confusion. Objective Vitals Vital Signs Date Time Temp Pulse Resp B/P (MAP) Pulse Ox O2 Delivery O2 Flow Rate FiO2 03/20/17 11:59 96.8 71 20 157/86 (109) 97 03/20/17 09:42 18 03/20/17 08:09 58 03/20/17 08:00 97.1 60 18 135/70 (91) 94 03/20/17 04:27 98.0 62 16 136/82 (100) 99 03/20/17 01:03 98.3 69 18 143/80 (101) 96 03/19/17 20:56 98.7 74 20 151/89 (109) 98 03/19/17 20:00 73 03/19/17 16:00 96.2 62 18 130/70 (90) 100 I/O 03/19/17 03/19/17 03/19/17 03/20/17 03/20/17 03/20/17 07:00 15:00 23:00 07:00 15:00 23:00 Intake Total 1480 ml 540 ml 1130 ml Output Total 1000 ml 1250 ml 600 ml 1800 ml 950 ml Balance 480 ml -710 ml 530 ml -1800 ml -950 ml Intake Oral 480 ml 540 ml 300 ml IV Total 1000 ml 830 ml Output Urine Total 1000 ml 1250 ml 600 ml 1800 ml 950 ml # Voids 0 # Bowel Movements 1 1 Result Diagram: 03/19/17 0623 03/20/17 0937 Objective Remarks GENERAL: Well-nourished, well-developed pleasant elderly male patient in no significant distress. SKIN: Warm and dry. Dry shingles lesions over right scrotum and right gluteal cleft. HEAD: Normocephalic. EYES: No scleral icterus. No injection or drainage. NECK: Supple, trachea midline. No JVD or lymphadenopathy. CARDIOVASCULAR: Regular rate and rhythm without murmurs, gallops, or rubs. RESPIRATORY: Breath sounds equal bilaterally. No accessory muscle use. GASTROINTESTINAL: Abdomen soft, non-tender, nondistended. EXTREMITIES: No cyanosis, or edema. NEUROLOGICAL: Awake, alert, and oriented x 3. Non-focal. A/P Problem List: (1) Physical deconditioning ICD Code: R53.81 - Other malaise Status: Acute (2) Medication side effects ICD Code: T88.7XXA - Unspecified adverse effect of drug or medicament, initial encounter Status: Acute (3) Acute delirium ICD Code: R41.0 - Disorientation, unspecified (4) Altered mental status ICD Code: R41.82 - Altered mental status, unspecified Status: Acute Assessment and Plan 81-year-old male admitted secondary to acute delirium. Delirium improved with cessation of Percocet. Pain is not controlled off narcotics. Trial of [place] provided today. If this works patient can be discharged once pharmacies reopen. Acute delirium - resolved. Likely secondary to narcotic use Involuntary overdose [place] provided as a pain treatment Lidoderm patch to be added to right lower back Monitor for any worsening of mental status Tramadol discontinued, it did not work for pain control NSAIDs for treatment could be considered if renal function improves CT of brain completed and shows no pathology Follow clinically for improvement Once his clinical status improves he may be discharged [place] works as a treatment without inducing confusion pharmacies will have to be opened prior to his ability to obtain this at discharge Shingles Genital location Pain management Cardiac arrhythmia Coronary artery disease Old myocardial infarction Follow on telemetry Pacemaker is present Hyperlipidemia No change to baseline treatment Follows in outpatient Back pain Holding narcotics for now Follow clinically BPH Acute kidney injury [place] I may be secondary to dehydration but BPH could accentuate this issue Improved Sleep apnea Oxygen at night Diabetes mellitus type 2 Follow blood sugars Insulin sliding scale Diabetic diet History of spinal tumor 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 Problem Qualifiers (1) Medication side effects: Qualified Codes: T88.7XXA - Unspecified adverse effect of drug or medicament, initial encounter (2) Altered mental status: Qualified Codes: R41.0 - Disorientation, unspecified Sonia Paredes MD Mar 20, 2017 13:55
[2017-03-20] MEDS: LIDOCAINE HCL 5% PATCH T-DERMAL SCH (16:19)
[2017-03-20] MEDS: DONEPEZIL HCL 5 MG TAB PO SCH (21:43)
[2017-03-21] VITALS (7 sets, daily range): BP systolic 130–155; BP diastolic 74–93; PULSE 60–79; RESP 16–20; TEMP 96.9–98.7; O2SAT 92–98
[2017-03-21] MEDS: ACETAMINOPHEN/HYDROcodone 325 MG/10 MG TAB PO PRN ×6 (01:50→22:12)
[2017-03-21] MEDS: RESP: ALBUTEROL 2.5 MG/3 ML NEB (SCH) NEB ×5 (03:30→21:37)
[2017-03-21] MEDS: ACYCLOVIR 800 MG TAB PO SCH ×5 (05:41→22:11)
[2017-03-21 07:34] LABS: POTASSIUM 3.8 MEQ/L (3.5-5.1)
[2017-03-21 07:37] LABS: BICARBONATE 23.7 MEQ/L (21.0-32.0)
[2017-03-21] MEDS: REMOVE OLD PATCH T-DERMAL SCH (09:00)
--- NOTE | 2017-03-21 09:46 | HHI.FF ---
Face to Face Verification Diagnosis: (1) Shingles (2) Right flank pain (3) Acute delirium (4) Physical deconditioning Physical Therapy Order: Evaluate and Treat Home Health Nursing Order: Medical education I have seen patient Sheri Yousif on 03/21/17. My clinical findings support the need for the requested home health care services because: Need for psychosocial assistance I certify that my clinical findings support that this patient is homebound because: Unsteady gait/balance Need for psychosocial assistance Sonia Paredes MD Mar 21, 2017 09:46
[2017-03-21] MEDS: LISINOPRIL 20 MG TAB PO SCH (09:59)
[2017-03-21] MEDS: LIDOCAINE HCL 5% PATCH T-DERMAL SCH (09:59)
[2017-03-21] MEDS: ATORVASTATIN 40 MG TAB PO SCH (10:00)
[2017-03-21] MEDS: GABAPENTIN 100 MG CAP PO SCH ×3 (10:00→18:06)
[2017-03-21] MEDS: CLOPIDOGREL 75 MG TAB PO SCH (10:00)
[2017-03-21] MEDS: TOPIRAMATE 25 MG TAB PO SCH ×2 (10:00→20:37)
[2017-03-21] MEDS: metFORMIN HCL 500 MG TAB PO SCH ×2 (10:01→18:06)
[2017-03-21] MEDS: CARVEDILOL 12.5 MG TAB PO SCH ×2 (10:01→20:37)
[2017-03-21] MEDS: FINASTERIDE 5 MG TAB PO SCH (10:01)
[2017-03-21] MEDS: glipiZIDE 5 MG TAB PO SCH (10:01)
[2017-03-21] MEDS: carBAMazepine 200 MG TAB PO SCH ×2 (10:01→20:37)
[2017-03-21] MEDS: SENNOSIDES SYRUP 8.8 MG/5 ML CUP PO SCH ×2 (10:02→20:38)
[2017-03-21] MEDS: SODIUM CHLORIDE 0.9% FLUSH 10 ML FLUSH IV FLUSH SCH ×2 (10:03→20:38)
[2017-03-21] MEDS ORDERED: TAMSULOSIN HCL 0.4 MG CAP PO ONE (12:30)
--- NOTE | 2017-03-21 12:47 | HHI.PR ---
Subjective Remarks Patient continues to have exquisite pain in his scrotum and right buttock. States pain is 14 out of 10, no relief with Lidoderm patch. He is ambulating very slowly with physical therapy. Objective Vitals Vital Signs Date Time Temp Pulse Resp B/P (MAP) Pulse Ox O2 Delivery O2 Flow Rate FiO2 03/21/17 09:53 97.6 67 18 155/93 (113) 92 03/21/17 04:03 96.9 60 16 132/87 (102) 96 03/21/17 01:10 97.4 67 20 130/80 (97) 98 03/20/17 21:37 97.9 89 18 142/81 (101) 100 03/20/17 18:22 18 03/20/17 16:00 97.1 65 20 106/71 (83) 96 I/O 03/20/17 03/20/17 03/20/17 03/21/17 03/21/17 03/21/17 07:00 15:00 23:00 07:00 15:00 23:00 Intake Total 1011 ml Output Total 1800 ml 1675 ml 2300 ml 850 ml Balance -1800 ml -664 ml -2300 ml -850 ml Intake Oral 430 ml IV Total 581 ml Output Urine Total 1800 ml 1675 ml 2300 ml 850 ml # Bowel Movements 1 0 1 1 1 Result Diagram: 03/19/17 0623 03/21/17 0645 Objective Remarks GENERAL: Well-nourished, well-developed pleasant elderly male patient in no significant distress. SKIN: Warm and dry. Dry shingles lesions over right scrotum and right gluteal cleft. HEAD: Normocephalic. EYES: No scleral icterus. No injection or drainage. NECK: Supple, trachea midline. No JVD or lymphadenopathy. CARDIOVASCULAR: Regular rate and rhythm without murmurs, gallops, or rubs. RESPIRATORY: Breath sounds equal bilaterally. No accessory muscle use. GASTROINTESTINAL: Abdomen soft, non-tender, nondistended. EXTREMITIES: No cyanosis, or edema. NEUROLOGICAL: Awake, alert, and oriented x 3. Non-focal. A/P Problem List: (1) Physical deconditioning ICD Code: R53.81 - Other malaise Status: Acute (2) Medication side effects ICD Code: T88.7XXA - Unspecified adverse effect of drug or medicament, initial encounter Status: Acute (3) Acute delirium ICD Code: R41.0 - Disorientation, unspecified (4) Altered mental status ICD Code: R41.82 - Altered mental status, unspecified Status: Acute (5) Shingles ICD Code: B02.9 - Zoster without complications (6) Right flank pain ICD Code: R10.9 - Unspecified abdominal pain Status: Acute (7) Chronic back pain ICD Code: G89.29 - Other chronic pain; M54.9 - Chronic back pain Status: Acute Assessment and Plan 81-year-old male admitted secondary to acute delirium. Delirium improved with cessation of Percocet. Pain is not controlled off narcotics. Trial of [place] provided today. If this works patient can be discharged once pharmacies reopen. Acute delirium - resolved. Likely secondary to narcotic use Involuntary overdose [place] provided as a pain treatment Lidoderm patch to be added to right lower back Monitor for any worsening of mental status Tramadol discontinued, it did not work for pain control Renal function improves, start naproxen. CT of brain completed and shows no pathology Follow clinically for improvement Once his clinical status improves he may be discharged Shingles Genital and right buttock location Pain management Urinary retention Trial of [place] today. Start Flomax. 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 Patient is prone to confusion and forgetfulness. Home health care ordered. He lives by himself, he does have a girlfriend. Problem Qualifiers (1) Medication side effects: Qualified Codes: T88.7XXA - Unspecified adverse effect of drug or medicament, initial encounter (2) Altered mental status: Qualified Codes: R41.0 - Disorientation, unspecified Sonia Paredes MD Mar 21, 2017 12:47
[2017-03-21] MEDS ORDERED: WALKER WHEELS/F1 MIS (12:49)
[2017-03-21] MEDS: NAPROXEN 250 MG TAB PO SCH ×2 (14:01→20:37)
[2017-03-21] MEDS: DONEPEZIL HCL 5 MG TAB PO SCH (20:38)
[2017-03-22] VITALS (7 sets, daily range): BP systolic 129–157; BP diastolic 72–98; PULSE 60–80; RESP 15–20; TEMP 96.3–98.2; O2SAT 92–99
[2017-03-22] MEDS: RESP: ALBUTEROL 2.5 MG/3 ML NEB (SCH) NEB ×7 (00:23→23:59)
[2017-03-22] MEDS: ACETAMINOPHEN/HYDROcodone 325 MG/10 MG TAB PO PRN ×4 (03:39→17:41)
[2017-03-22] MEDS: ACYCLOVIR 800 MG TAB PO SCH ×5 (05:43→20:39)
[2017-03-22] MEDS: GABAPENTIN 100 MG CAP PO SCH ×3 (08:34→17:40)
[2017-03-22] MEDS: REMOVE OLD PATCH T-DERMAL SCH ×2 (08:34→20:40)
[2017-03-22] MEDS: LIDOCAINE HCL 5% PATCH T-DERMAL SCH (08:34)
[2017-03-22] MEDS: glipiZIDE 5 MG TAB PO SCH (08:35)
[2017-03-22] MEDS: TAMSULOSIN HCL 0.4 MG CAP PO SCH (08:35)
[2017-03-22] MEDS: CLOPIDOGREL 75 MG TAB PO SCH (08:35)
[2017-03-22] MEDS: NAPROXEN 250 MG TAB PO SCH ×2 (08:35→20:38)
[2017-03-22] MEDS: FINASTERIDE 5 MG TAB PO SCH (08:35)
[2017-03-22] MEDS: TOPIRAMATE 25 MG TAB PO SCH ×2 (08:36→20:38)
[2017-03-22] MEDS: CARVEDILOL 12.5 MG TAB PO SCH ×2 (08:36→20:39)
[2017-03-22] MEDS: LISINOPRIL 20 MG TAB PO SCH (08:36)
[2017-03-22] MEDS: carBAMazepine 200 MG TAB PO SCH ×2 (08:36→20:38)
[2017-03-22] MEDS: ATORVASTATIN 40 MG TAB PO SCH (08:37)
[2017-03-22] MEDS: SENNOSIDES SYRUP 8.8 MG/5 ML CUP PO SCH ×2 (08:38→20:38)
[2017-03-22] MEDS: metFORMIN HCL 500 MG TAB PO SCH ×2 (08:38→17:40)
[2017-03-22] MEDS: SODIUM CHLORIDE 0.9% FLUSH 10 ML FLUSH IV FLUSH SCH ×2 (08:38→20:37)
[2017-03-22] MEDS ORDERED: HYDROmorphone HCL PF 1 MG/ML VIAL IV PUSH ONE (10:45)
[2017-03-22] MEDS: oxyCODONE HCL 10 MG CONTROLLED RELEASE TAB PO SCH ×2 (11:53→20:39)
--- NOTE | 2017-03-22 12:10 | HHI.PR ---
Subjective Remarks Still c/o pain 10/10 in right buttock and scrotum RN states has some open wounds in right buttock and scrotum. Also urinating well Objective Vitals Vital Signs Date Time Temp Pulse Resp B/P (MAP) Pulse Ox O2 Delivery O2 Flow Rate FiO2 03/22/17 08:40 71 03/22/17 08:35 96.3 63 15 152/98 (116) 95 03/22/17 04:00 97.6 60 18 129/83 (98) 93 03/22/17 00:00 98.2 64 18 131/72 (91) 92 03/21/17 22:00 72 03/21/17 20:00 98.7 79 20 152/83 (106) 92 03/21/17 17:15 97.2 70 20 133/74 (93) 92 03/21/17 13:00 97.2 70 18 133/74 (93) 92 I/O 03/21/17 03/21/17 03/21/17 03/22/17 03/22/17 03/22/17 07:00 15:00 23:00 07:00 15:00 23:00 Intake Total 120 ml Output Total 2300 ml 1100 ml 100 ml 250 ml Balance -2300 ml -1100 ml -100 ml -130 ml Intake Oral 120 ml Output Urine Total 2300 ml 1100 ml 100 ml 250 ml Bladder Scan Volume Amount 406 ml # Voids 1 # Bowel Movements 1 1 1 Result Diagram: 03/19/17 0623 03/21/17 0645 Imaging Last Impressions Head CT 03/18/17 0000 Signed Impressions: Service Date/Time: Saturday, March 18, 2017 16:20 - CONCLUSION: Stable brain appearance. Frankie Hilton MD Objective Remarks AAOx3, moderate distress due to pain Cleart lungs BL There are some open vesicles in the right buttock and scrotum S1S2 RRR, no MRG abdomen soft, nt, nd Procedures None Medications and IVs Current Medications Medications (Trade) Dose Ordered Sig/Michael Route Start Time Stop Time Status Last Admin (NS Flush) 2 ml UNSCH PRN IV FLUSH 03/18/17 16:15 (NS Flush) 2 ml BID IV FLUSH 03/18/17 21:00 03/22/17 08:38 (Zofran Inj) 4 mg Q6H PRN IVP 03/18/17 16:15 (Narcan Inj) 0.4 mg UNSCH PRN IV 03/18/17 16:15 (Senokot) 17.2 mg Q12H PRN PO 03/18/17 16:15 03/19/17 10:04 (Lactulose Liq) 30 ml DAILY PRN PO 03/18/17 16:15 (Tylenol) 1,000 mg Q8H PRN PO 03/19/17 08:15 (Albuterol Neb) 2.5 mg Q4HR NEB NEB 03/19/17 12:00 03/22/17 11:51 (Norvasc) 10 mg DAILY PO 03/19/17 09:00 03/22/17 08:36 (TEGretol) 200 mg BID PO 03/19/17 09:00 03/22/17 08:36 (Coreg) 12.5 mg BID PO 03/19/17 09:00 03/22/17 08:36 (Plavix) 75 mg DAILY PO 03/19/17 09:00 03/22/17 08:35 (Aricept) 5 mg HS PO 03/19/17 21:00 03/21/17 20:38 (Proscar) 5 mg DAILY PO 03/19/17 09:00 03/22/17 08:35 (Glucotrol) 5 mg DAILY PO 03/19/17 09:00 03/22/17 08:35 (Glucophage) 500 mg BIDPC PO 03/19/17 09:00 03/22/17 08:38 (Senna Liq) 17.6 mg BID PO 03/19/17 10:00 03/22/17 08:38 (Januvia) 100 mg DAILY PO 03/19/17 10:00 03/22/17 08:36 (Topamax) 25 mg BID PO 03/19/17 09:00 03/22/17 08:36 (Prinivil) 40 mg DAILY PO 03/19/17 09:00 03/22/17 08:36 Patient Own Medication PT OWN MED: NATEGLIN... TIDAC PO 03/19/17 12:00 Future Hold (Lipitor) 80 mg DAILY PO 03/19/17 10:00 03/22/17 08:37 ([place] 10-325 Mg) 1 tab Q4H PRN PO 03/19/17 09:30 03/22/17 08:38 ([place] 5-325 Mg) 1 tab Q4H PRN PO 03/19/17 09:30 (Zovirax) 800 mg 5 TIMES A DAY PO 03/19/17 14:00 03/22/17 08:35 (Lidoderm 5% Patch.12 Hr) 1 patch DAILY T-DERMAL 03/20/17 14:00 03/22/17 08:34 (Flomax) 0.4 mg DAILY PO 03/22/17 09:00 03/22/17 08:35 (Naprosyn) 250 mg Q12HR PO 03/21/17 13:00 03/22/17 08:35 (Dilaudid Pf Inj) 0.5 mg Q4H PRN IV PUSH 03/22/17 10:45 (Neurontin) 300 mg TID PO 03/22/17 13:00 (OxyCONTIN CR) 10 mg Q12HR PO 03/22/17 10:45 Miscellaneous Information 1 HS T-DERMAL 03/22/17 21:00 Urinary Catheter: No Vascular Central Line Catheter: No A/P Problem List: (1) Physical deconditioning ICD Code: R53.81 - Other malaise Status: Acute (2) Medication side effects ICD Code: T88.7XXA - Unspecified adverse effect of drug or medicament, initial encounter Status: Acute (3) Acute delirium ICD Code: R41.0 - Disorientation, unspecified (4) Altered mental status ICD Code: R41.82 - Altered mental status, unspecified Status: Acute (5) Shingles ICD Code: B02.9 - [place] without complications (6) Right flank pain ICD Code: R10.9 - Unspecified abdominal pain Status: Acute (7) Chronic back pain ICD Code: G89.29 - Other chronic pain; M54.9 - Chronic back pain Status: Acute Assessment and Plan 81-year-old male admitted secondary to acute delirium. Delirium improved with cessation of Percocet. Pain is not controlled off narcotics. Trial of [place] provided today. If this works patient can be discharged once pharmacies reopen. Acute delirium - resolved. Likely secondary to narcotic use Involuntary overdose [place] provided as a pain treatment Lidoderm patch to be added to right lower back Monitor for any worsening of mental status Tramadol discontinued, it did not work for pain control Patient started on Naproxen after renal function improved. CT of brain completed and shows no pathology Follow clinically for improvement Shingles Genital and right buttock location 03/22 Pain still uncontrolled- Will DC Naproxen. Pain is likely neuropathic in origin secondary to herpes zoster infection. Continue acyclovir 800 mg by mouth 5 times a day. I will start the patient on long-acting oxycodone, continue Lortab and will start on Dilaudid 0.5 mg IV for breakthrough pain. I will consult wound care. Urinary retention 03/22 Patient had successful voiding trials. Continue Flomax. Urinary retention resolved. Cardiac arrhythmia Coronary artery disease Old myocardial infarction Follow on telemetry Pacemaker is present Hyperlipidemia No change to baseline treatment Follows in outpatient BPH Acute kidney injury Possibly secondary to prerenal azotemia. Improving after IV fluid administration. 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 The patient seems to be stable as well as osteoarthritis. DVT prophylaxis SCDs Discharge Planning Patient still with uncontrolled pain. Patient will need to be discharged home with home health PT as per PT recommendations once pain is controlled. Problem Qualifiers (1) Medication side effects: Qualified Codes: T88.7XXA - Unspecified adverse effect of drug or medicament, initial encounter (2) Altered mental status: Qualified Codes: R41.0 - Disorientation, unspecified (3) Shingles: Qualified Codes: B02.9 - Zoster without complications Marlo Blum MD Mar 22, 2017 12:10
[2017-03-22] MEDS ORDERED: DEXTROSE 50% IN WATER 50 ML VIAL(D50) IV PRN (13:00)
[2017-03-22] MEDS ORDERED: GLUCAGON 1 MG/ML VIAL OTHER PRN (13:00)
[2017-03-22] MEDS: HYDROmorphone HCL PF 1 MG/ML VIAL IV PUSH PRN ×2 (14:45→21:34)
--- NOTE | 2017-03-22 16:25 | PD.WCN.NOT ---
Wound Consult Description: Received consult from Doctor Franki for wound management of R buttock, scrotum. Open lesions due to shingles Communicated with: JENNIE Amaya [facility] 3rd floor and Doctor Doan Recommendation: Please apply cold compresses PRN to buttock and scrotal area. Cleanse open lesions to R buttock and scrotum with normal saline and pat dry. Apply Calazime barrier cream and leave open to air Additional Information: Patient seen on 3rd floor [facility] for evaluation of open lesions due to shingles on R buttock and scrotum.Patient able to stand for wound assessment. Diffuse lesions noted to R buttock and scrotal areas.Most lesions on R buttock are presenting as dry with white colored crust. Lesions to R lower buttock and scrotal areas present as open with ~70% pink tissue and ~30% thin yellow tissue. Wounds are dry and non draining without odor. Applied saline soaked gauze over all lesions, then removed and pat dry. Changed Ultrasorb pad under patient. Monqiue SCHNEIDER 3rd floor [facility] to apply Calazime barrier cream and continue to leave lesions open to air. Tanya Jackson [facility] Mar 22, 2017 16:25
[2017-03-22] MEDS: INSULIN ASPART SUPPLEMENTAL SCALE SQ SCH ×2 (17:00→20:40)
[2017-03-22] MEDS: DONEPEZIL HCL 5 MG TAB PO SCH (20:39)
[2017-03-23] VITALS (7 sets, daily range): BP systolic 136–153; BP diastolic 80–108; PULSE 57–70; RESP 16–24; TEMP 96.8–98.3; O2SAT 92–98
[2017-03-23] MEDS: ACETAMINOPHEN/HYDROcodone 325 MG/10 MG TAB PO PRN ×2 (02:37→12:52)
[2017-03-23] MEDS: RESP: ALBUTEROL 2.5 MG/3 ML NEB (SCH) NEB ×3 (03:50→11:47)
[2017-03-23] MEDS: ACYCLOVIR 800 MG TAB PO SCH ×5 (06:07→21:44)
[2017-03-23] MEDS: INSULIN ASPART SUPPLEMENTAL SCALE SQ SCH ×4 (08:00→21:00)
[2017-03-23] MEDS: LIDOCAINE HCL 5% PATCH T-DERMAL SCH (08:19)
[2017-03-23] MEDS: CARVEDILOL 12.5 MG TAB PO SCH ×2 (08:19→21:44)
[2017-03-23] MEDS: GABAPENTIN 100 MG CAP PO SCH (08:19)
[2017-03-23] MEDS: SENNOSIDES SYRUP 8.8 MG/5 ML CUP PO SCH ×2 (08:19→21:44)
[2017-03-23] MEDS: glipiZIDE 5 MG TAB PO SCH (08:20)
[2017-03-23] MEDS: ATORVASTATIN 40 MG TAB PO SCH (08:20)
[2017-03-23] MEDS: FINASTERIDE 5 MG TAB PO SCH (08:20)
[2017-03-23] MEDS: carBAMazepine 200 MG TAB PO SCH ×2 (08:20→21:44)
[2017-03-23] MEDS: TOPIRAMATE 25 MG TAB PO SCH ×2 (08:20→21:44)
[2017-03-23] MEDS: oxyCODONE HCL 10 MG CONTROLLED RELEASE TAB PO SCH ×2 (08:21→21:45)
[2017-03-23] MEDS: LISINOPRIL 20 MG TAB PO SCH (08:21)
[2017-03-23] MEDS: NAPROXEN 250 MG TAB PO SCH ×2 (08:21→21:44)
[2017-03-23] MEDS: TAMSULOSIN HCL 0.4 MG CAP PO SCH (08:21)
[2017-03-23] MEDS: metFORMIN HCL 500 MG TAB PO SCH ×2 (08:21→17:07)
[2017-03-23] MEDS: SODIUM CHLORIDE 0.9% FLUSH 10 ML FLUSH IV FLUSH SCH ×2 (08:22→21:45)
[2017-03-23] MEDS: CLOPIDOGREL 75 MG TAB PO SCH (08:22)
[2017-03-23] MEDS: GABAPENTIN 300 MG CAP PO SCH ×2 (12:52→17:07)
--- NOTE | 2017-03-23 15:11 | HHI.PR ---
Subjective Remarks Deferred entry - patient seen at 11:50 am Patient still with intense pain in buttock and scrotum rates pain as 04/18 denies cp/sob Objective Vitals Vital Signs Date Time Temp Pulse Resp B/P (MAP) Pulse Ox O2 Delivery O2 Flow Rate FiO2 03/23/17 12:00 97.4 59 20 140/82 (101) 97 03/23/17 09:00 60 03/23/17 08:00 97.3 57 20 147/85 (105) 97 03/23/17 04:00 98.3 70 16 151/108 (122) 98 03/23/17 03:51 20 03/23/17 00:00 98.2 70 18 136/80 (98) 97 03/22/17 22:08 18 03/22/17 21:43 20 03/22/17 20:00 80 03/22/17 20:00 97.6 71 16 154/93 (113) 99 03/22/17 18:00 97.6 66 18 157/87 (110) 99 I/O 03/22/17 03/22/17 03/22/17 03/23/17 03/23/17 03/23/17 07:00 15:00 23:00 07:00 15:00 23:00 Intake Total 120 ml 680 ml Output Total 250 ml 450 ml 550 ml 1125 ml Balance -130 ml -450 ml 130 ml -1125 ml Intake Oral 120 ml 680 ml Output Urine Total 250 ml 450 ml 550 ml 1125 ml Bladder Scan Volume Amount 569 ml 859 ml # Voids 1 1 7 Result Diagram: 03/19/17 0623 03/21/17 0645 Imaging Last Impressions Head CT 03/18/17 0000 Signed Impressions: Service Date/Time: Saturday, March 18, 2017 16:20 - CONCLUSION: Stable brain appearance. Frankie Hilton MD Objective Remarks AAOx3, moderate distress due to pain Cleart lungs BL There are some open vesicles in the right buttock and scrotum S1S2 RRR, no MRG abdomen soft, nt, nd Procedures None Medications and IVs Current Medications Medications (Trade) Dose Ordered Sig/Michael Route Start Time Stop Time Status Last Admin (NS Flush) 2 ml UNSCH PRN IV FLUSH 03/18/17 16:15 (NS Flush) 2 ml BID IV FLUSH 03/18/17 21:00 03/23/17 08:22 (Zofran Inj) 4 mg Q6H PRN IVP 03/18/17 16:15 (Narcan Inj) 0.4 mg UNSCH PRN IV 03/18/17 16:15 (Senokot) 17.2 mg Q12H PRN PO 03/18/17 16:15 03/19/17 10:04 (Lactulose Liq) 30 ml DAILY PRN PO 03/18/17 16:15 (Tylenol) 1,000 mg Q8H PRN PO 03/19/17 08:15 (Norvasc) 10 mg DAILY PO 03/19/17 09:00 03/23/17 08:20 (TEGretol) 200 mg BID PO 03/19/17 09:00 03/23/17 08:20 (Coreg) 12.5 mg BID PO 03/19/17 09:00 03/23/17 08:19 (Plavix) 75 mg DAILY PO 03/19/17 09:00 03/23/17 08:22 (Aricept) 5 mg HS PO 03/19/17 21:00 03/22/17 20:39 (Proscar) 5 mg DAILY PO 03/19/17 09:00 03/23/17 08:20 (Glucotrol) 5 mg DAILY PO 03/19/17 09:00 03/23/17 08:20 (Glucophage) 500 mg BIDPC PO 03/19/17 09:00 03/23/17 08:21 (Senna Liq) 17.6 mg BID PO 03/19/17 10:00 03/23/17 08:19 (Januvia) 100 mg DAILY PO 03/19/17 10:00 03/23/17 08:20 (Topamax) 25 mg BID PO 03/19/17 09:00 03/23/17 08:20 (Prinivil) 40 mg DAILY PO 03/19/17 09:00 03/23/17 08:21 Patient Own Medication PT OWN MED: NATEGLIN... TIDAC PO 03/19/17 12:00 Future Hold (Lipitor) 80 mg DAILY PO 03/19/17 10:00 03/23/17 08:20 ([place] 10-325 Mg) 1 tab Q4H PRN PO 03/19/17 09:30 03/23/17 12:52 ([place] 5-325 Mg) 1 tab Q4H PRN PO 03/19/17 09:30 (Zovirax) 800 mg 5 TIMES A DAY PO 03/19/17 14:00 03/23/17 12:52 (Lidoderm 5% Patch.12 Hr) 1 patch DAILY T-DERMAL 03/20/17 14:00 03/23/17 08:19 (Flomax) 0.4 mg DAILY PO 03/22/17 09:00 03/23/17 08:21 (Naprosyn) 250 mg Q12HR PO 03/21/17 13:00 03/23/17 08:21 (Dilaudid Pf Inj) 0.5 mg Q4H PRN IV PUSH 03/22/17 10:45 03/22/17 21:34 (OxyCONTIN CR) 10 mg Q12HR PO 03/22/17 10:45 03/23/17 08:21 Miscellaneous Information 1 HS T-DERMAL 03/22/17 21:00 03/22/17 20:40 (D50w (Vial) Inj) 50 ml UNSCH PRN IV 03/22/17 13:00 (Glucagon Inj) 1 mg UNSCH PRN OTHER 03/22/17 13:00 (NovoLOG SUPPLEMENTAL SCALE) 1 ACHS SLIDING SCALE SQ 03/22/17 17:00 03/22/17 20:40 (Neurontin) 600 mg TID PO 03/23/17 13:00 03/23/17 12:52 Urinary Catheter: No Vascular Central Line Catheter: No A/P Problem List: (1) Physical deconditioning ICD Code: R53.81 - Other malaise Status: Acute (2) Medication side effects ICD Code: T88.7XXA - Unspecified adverse effect of drug or medicament, initial encounter Status: Acute (3) Acute delirium ICD Code: R41.0 - Disorientation, unspecified (4) Altered mental status ICD Code: R41.82 - Altered mental status, unspecified Status: Acute (5) Shingles ICD Code: B02.9 - [place] without complications (6) Right flank pain ICD Code: R10.9 - Unspecified abdominal pain Status: Acute (7) Chronic back pain ICD Code: G89.29 - Other chronic pain; M54.9 - Chronic back pain Status: Acute Assessment and Plan 81-year-old male admitted secondary to acute delirium. Delirium improved with cessation of Percocet. Pain is not controlled off narcotics. Trial of [place] provided today. If this works patient can be discharged once pharmacies reopen. Acute delirium - resolved. Likely secondary to narcotic use Involuntary overdose [place] provided as a pain treatment Lidoderm patch to be added to right lower back Monitor for any worsening of mental status Tramadol discontinued, it did not work for pain control Patient started on Naproxen after renal function improved which has been discontinued CT of brain completed and shows no pathology Follow clinically for improvement Shingles Genital and right buttock location 03/22 Pain still uncontrolled- Will DC Naproxen. Pain is likely neuropathic in origin secondary to herpes zoster infection. Continue acyclovir 800 mg by mouth 5 times a day. I will start the patient on long-acting oxycodone, continue Lortab and will start on Dilaudid 0.5 mg IV for breakthrough pain. I will consult wound care. 03/23 Wound care consulted. appreciate recommendations. Continue long-acting oxycodone and Lortab. I will increase the dose of gabapentin to 600 mg by mouth 3 times a day. Urinary retention 03/22 Patient had successful voiding trials. Continue Flomax. Urinary retention resolved. Cardiac arrhythmia Coronary artery disease Old myocardial infarction Follow on telemetry Pacemaker is present Hyperlipidemia No change to baseline treatment Follows in outpatient BPH Acute kidney injury Possibly secondary to prerenal azotemia. Improving after IV fluid administration. 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 The patient seems to be stable as well as osteoarthritis. DVT prophylaxis SCDs Discharge Planning Patient still with uncontrolled pain. Patient will need to be discharged home with home health PT as per PT recommendations once pain is controlled. Problem Qualifiers (1) Medication side effects: Qualified Codes: T88.7XXA - Unspecified adverse effect of drug or medicament, initial encounter (2) Altered mental status: Qualified Codes: R41.0 - Disorientation, unspecified (3) Shingles: Qualified Codes: B02.9 - Zoster without complications Marlo Blum MD 14, 2017 15:11
[2017-03-23] MEDS: HYDROmorphone HCL PF 1 MG/ML VIAL IV PUSH PRN (17:08)
[2017-03-23] MEDS: REMOVE OLD PATCH T-DERMAL SCH (21:00)
[2017-03-23] MEDS: DONEPEZIL HCL 5 MG TAB PO SCH (21:44)
[2017-03-24] VITALS (9 sets, daily range): BP systolic 126–174; BP diastolic 54–93; PULSE 63–91; RESP 18–24; TEMP 95.4–98.8; O2SAT 92–100
[2017-03-24] MEDS: ACETAMINOPHEN/HYDROcodone 325 MG/10 MG TAB PO PRN ×3 (04:15→18:53)
[2017-03-24] MEDS: ACYCLOVIR 800 MG TAB PO SCH ×5 (05:56→22:02)
[2017-03-24] MEDS: GABAPENTIN 300 MG CAP PO SCH ×2 (09:46→12:16)
[2017-03-24] MEDS: SENNOSIDES SYRUP 8.8 MG/5 ML CUP PO SCH ×2 (09:47→22:02)
[2017-03-24] MEDS: oxyCODONE HCL 10 MG CONTROLLED RELEASE TAB PO SCH (09:47)
[2017-03-24] MEDS: carBAMazepine 200 MG TAB PO SCH ×2 (09:48→22:03)
[2017-03-24] MEDS: CLOPIDOGREL 75 MG TAB PO SCH (09:48)
[2017-03-24] MEDS: FINASTERIDE 5 MG TAB PO SCH (09:49)
[2017-03-24] MEDS: LISINOPRIL 20 MG TAB PO SCH (09:49)
[2017-03-24] MEDS: ATORVASTATIN 40 MG TAB PO SCH (09:49)
[2017-03-24] MEDS: metFORMIN HCL 500 MG TAB PO SCH ×2 (09:49→16:52)
[2017-03-24] MEDS: glipiZIDE 5 MG TAB PO SCH (09:50)
[2017-03-24] MEDS: CARVEDILOL 12.5 MG TAB PO SCH ×2 (09:50→22:04)
[2017-03-24] MEDS: TAMSULOSIN HCL 0.4 MG CAP PO SCH (09:50)
[2017-03-24] MEDS: LIDOCAINE HCL 5% PATCH T-DERMAL SCH (09:51)
[2017-03-24] MEDS: SODIUM CHLORIDE 0.9% FLUSH 10 ML FLUSH IV FLUSH SCH ×2 (09:52→22:02)
[2017-03-24] MEDS: INSULIN ASPART SUPPLEMENTAL SCALE SQ SCH ×4 (09:53→21:00)
[2017-03-24] MEDS: TOPIRAMATE 25 MG TAB PO SCH ×2 (10:03→22:02)
[2017-03-24] MEDS: NAPROXEN 250 MG TAB PO SCH ×2 (10:04→22:02)
[2017-03-24] MEDS: HYDROmorphone HCL PF 1 MG/ML VIAL IV PUSH PRN (14:07)
--- NOTE | 2017-03-24 14:11 | HHI.PR ---
Subjective Remarks still c/o of severe pain in buttocks and scrotum. Denies fevers or chills. States pain is a 4/10 in intensity, improving when compared to previous days. Objective Vitals Vital Signs Date Time Temp Pulse Resp B/P (MAP) Pulse Ox O2 Delivery O2 Flow Rate FiO2 03/24/17 12:08 97.2 71 18 126/82 (97) 98 03/24/17 08:20 98.0 72 18 134/73 (93) 100 03/24/17 05:15 20 03/24/17 04:00 95.4 85 24 140/54 (82) 94 03/24/17 00:00 96.2 84 20 158/93 (114) 94 03/23/17 22:45 20 03/23/17 20:00 67 03/23/17 20:00 96.8 66 24 153/86 (108) 92 03/23/17 20:00 67 03/23/17 19:20 20 03/23/17 16:00 97.0 59 20 140/81 (100) 97 I/O 03/23/17 03/23/17 03/23/17 03/24/17 03/24/17 03/24/17 07:00 15:00 23:00 07:00 15:00 23:00 Intake Total 480 ml 480 ml 100 ml Output Total 1125 ml 600 ml 900 ml Balance -1125 ml -120 ml -420 ml 100 ml Intake Oral 480 ml 480 ml 100 ml Output Urine Total 1125 ml 600 ml 900 ml Bladder Scan Volume Amount 859 ml # Bowel Movements 2 3 Result Diagram: 03/21/17 0645 Imaging Last Impressions Head CT 03/18/17 0000 Signed Impressions: Service Date/Time: Saturday, March 18, 2017 16:20 - CONCLUSION: Stable brain appearance. Frankie Hilton MD Objective Remarks AAOx3, moderate distress due to pain Cleart lungs BL There are some open vesicles in the right buttock and scrotum S1S2 RRR, no MRG abdomen soft, nt, nd Procedures None Medications and IVs Current Medications Medications (Trade) Dose Ordered Sig/Michael Route Start Time Stop Time Status Last Admin (NS Flush) 2 ml UNSCH PRN IV FLUSH 03/18/17 16:15 (NS Flush) 2 ml BID IV FLUSH 03/18/17 21:00 03/24/17 09:52 (Zofran Inj) 4 mg Q6H PRN IVP 03/18/17 16:15 (Narcan Inj) 0.4 mg UNSCH PRN IV 03/18/17 16:15 (Senokot) 17.2 mg Q12H PRN PO 03/18/17 16:15 03/19/17 10:04 (Lactulose Liq) 30 ml DAILY PRN PO 03/18/17 16:15 (Tylenol) 1,000 mg Q8H PRN PO 03/19/17 08:15 (Norvasc) 10 mg DAILY PO 03/19/17 09:00 03/24/17 09:49 (TEGretol) 200 mg BID PO 03/19/17 09:00 03/24/17 09:48 (Coreg) 12.5 mg BID PO 03/19/17 09:00 03/24/17 09:50 (Plavix) 75 mg DAILY PO 03/19/17 09:00 03/24/17 09:48 (Aricept) 5 mg HS PO 03/19/17 21:00 03/23/17 21:44 (Proscar) 5 mg DAILY PO 03/19/17 09:00 03/24/17 09:49 (Glucotrol) 5 mg DAILY PO 03/19/17 09:00 03/24/17 09:50 (Glucophage) 500 mg BIDPC PO 03/19/17 09:00 03/24/17 09:49 (Senna Liq) 17.6 mg BID PO 03/19/17 10:00 03/24/17 09:47 (Januvia) 100 mg DAILY PO 03/19/17 10:00 03/24/17 10:04 (Topamax) 25 mg BID PO 03/19/17 09:00 03/24/17 10:03 (Prinivil) 40 mg DAILY PO 03/19/17 09:00 03/24/17 09:49 Patient Own Medication PT OWN MED: NATEGLIN... TIDAC PO 03/19/17 12:00 Future Hold (Lipitor) 80 mg DAILY PO 03/19/17 10:00 03/24/17 09:49 ([place] 10-325 Mg) 1 tab Q4H PRN PO 03/19/17 09:30 03/24/17 12:21 ([place] 5-325 Mg) 1 tab Q4H PRN PO 03/19/17 09:30 (Zovirax) 800 mg 5 TIMES A DAY PO 03/19/17 14:00 03/24/17 12:16 (Lidoderm 5% Patch.12 Hr) 1 patch DAILY T-DERMAL 03/20/17 14:00 03/24/17 09:51 (Flomax) 0.4 mg DAILY PO 03/22/17 09:00 03/24/17 09:50 (Naprosyn) 250 mg Q12HR PO 03/21/17 13:00 03/24/17 10:04 (Dilaudid Pf Inj) 0.5 mg Q4H PRN IV PUSH 03/22/17 10:45 03/23/17 17:08 (OxyCONTIN CR) 10 mg Q12HR PO 03/22/17 10:45 03/24/17 09:47 Miscellaneous Information 1 HS T-DERMAL 03/22/17 21:00 03/23/17 21:00 (D50w (Vial) Inj) 50 ml UNSCH PRN IV 03/22/17 13:00 (Glucagon Inj) 1 mg UNSCH PRN OTHER 03/22/17 13:00 (NovoLOG SUPPLEMENTAL SCALE) 1 ACHS SLIDING SCALE SQ 03/22/17 17:00 03/24/17 12:18 (Neurontin) 600 mg TID PO 03/23/17 13:00 03/24/17 12:16 A/P Problem List: (1) Physical deconditioning ICD Code: R53.81 - Other malaise Status: Acute (2) Medication side effects ICD Code: T88.7XXA - Unspecified adverse effect of drug or medicament, initial encounter Status: Acute (3) Acute delirium ICD Code: R41.0 - Disorientation, unspecified (4) Altered mental status ICD Code: R41.82 - Altered mental status, unspecified Status: Acute (5) Shingles ICD Code: B02.9 - Zoster without complications (6) Right flank pain ICD Code: R10.9 - Unspecified abdominal pain Status: Acute (7) Chronic back pain ICD Code: G89.29 - Other chronic pain; M54.9 - Chronic back pain Status: Acute Assessment and Plan 81-year-old male admitted secondary to acute delirium. Delirium improved with cessation of Percocet. Pain is not controlled off narcotics. Trial of [place] provided today. If this works patient can be discharged once pharmacies reopen. Acute delirium - resolved. Likely secondary to narcotic use Involuntary overdose [place] provided as a pain treatment Lidoderm patch to be added to right lower back Monitor for any worsening of mental status Tramadol discontinued, it did not work for pain control Patient started on Naproxen after renal function improved which has been discontinued CT of brain completed and shows no pathology Follow clinically for improvement Shingles Genital and right buttock location 03/22 Pain still uncontrolled- Will DC Naproxen. Pain is likely neuropathic in origin secondary to herpes zoster infection. Continue acyclovir 800 mg by mouth 5 times a day. I will start the patient on long-acting oxycodone, continue Lortab and will start on Dilaudid 0.5 mg IV for breakthrough pain. I will consult wound care. 03/23 Wound care consulted. appreciate recommendations. Continue long-acting oxycodone and Lortab. I will increase the dose of gabapentin to 600 mg by mouth 3 times a day. 03/24 continue wound care. Patient still with severe pain in buttocks and scrotum. Likely due to neuropathic pain. I will increase the long-acting oxycodone from 10 mg by mouth every 12 hours to 20 mg by mouth every 12 hours and continue Lortab as needed. I will also increase the dose of gabapentin to 900 mg by mouth 3 times a day. The patient will need outpatient referral to pain management. Urinary retention 03/22 Patient had successful voiding trials. Continue Flomax. Urinary retention resolved. Cardiac arrhythmia Coronary artery disease Old myocardial infarction Follow on telemetry Pacemaker is present Hyperlipidemia No change to baseline treatment Follows in outpatient BPH Acute kidney injury CKDstage III Likely due to prerenal azotemia. Resolved after IV fluid administration. Upon review of records the patient has had some increased creatinine with a baseline of 1.1 since 2016. Likely secondary to chronic kidney disease stage III. 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 The patient seems to be stable as well as osteoarthritis. DVT prophylaxis SCDs Discharge Planning Patient still with uncontrolled pain. Patient will need to be discharged home with home health PT as per PT recommendations once pain is controlled. Problem Qualifiers (1) Medication side effects: Qualified Codes: T88.7XXA - Unspecified adverse effect of drug or medicament, initial encounter (2) Altered mental status: Qualified Codes: R41.0 - Disorientation, unspecified (3) Shingles: Qualified Codes: B02.9 - Zoster without complications Marlo Blum MD Mar 24, 2017 14:11
[2017-03-24] MEDS: GABAPENTIN 400 MG CAP PO SCH (16:51)
[2017-03-24] MEDS: REMOVE OLD PATCH T-DERMAL SCH (21:00)
[2017-03-24] MEDS: DONEPEZIL HCL 5 MG TAB PO SCH (22:03)
[2017-03-24] MEDS: oxyCODONE HCL 20 MG CONTROLLED RELEASE TAB PO SCH (22:03)
[2017-03-25] VITALS (7 sets, daily range): BP systolic 112–144; BP diastolic 68–89; PULSE 56–88; RESP 16–22; TEMP 96.9–98.3; O2SAT 90–100
[2017-03-25] MEDS: ACYCLOVIR 800 MG TAB PO SCH ×5 (05:25→22:34)
[2017-03-25] MEDS: ACETAMINOPHEN/HYDROcodone 325 MG/10 MG TAB PO PRN ×4 (05:30→22:34)
[2017-03-25] MEDS: INSULIN ASPART SUPPLEMENTAL SCALE SQ SCH ×4 (08:00→21:00)
[2017-03-25] MEDS: SENNOSIDES SYRUP 8.8 MG/5 ML CUP PO SCH ×2 (08:38→21:00)
[2017-03-25] MEDS: LIDOCAINE HCL 5% PATCH T-DERMAL SCH (08:38)
[2017-03-25] MEDS: glipiZIDE 5 MG TAB PO SCH (08:38)
[2017-03-25] MEDS: GABAPENTIN 400 MG CAP PO SCH ×3 (08:39→15:40)
[2017-03-25] MEDS: oxyCODONE HCL 20 MG CONTROLLED RELEASE TAB PO SCH ×2 (08:39→20:02)
[2017-03-25] MEDS: NAPROXEN 250 MG TAB PO SCH (08:39)
[2017-03-25] MEDS: ATORVASTATIN 40 MG TAB PO SCH (08:39)
[2017-03-25] MEDS: CARVEDILOL 12.5 MG TAB PO SCH ×2 (08:40→20:00)
[2017-03-25] MEDS: carBAMazepine 200 MG TAB PO SCH ×2 (08:40→20:01)
[2017-03-25] MEDS: CLOPIDOGREL 75 MG TAB PO SCH (08:40)
[2017-03-25] MEDS: TOPIRAMATE 25 MG TAB PO SCH ×2 (08:40→20:00)
[2017-03-25] MEDS: metFORMIN HCL 500 MG TAB PO SCH ×2 (08:40→15:40)
[2017-03-25] MEDS: FINASTERIDE 5 MG TAB PO SCH (08:40)
[2017-03-25] MEDS: TAMSULOSIN HCL 0.4 MG CAP PO SCH (08:40)
[2017-03-25] MEDS: LISINOPRIL 20 MG TAB PO SCH (08:40)
[2017-03-25] MEDS: SODIUM CHLORIDE 0.9% FLUSH 10 ML FLUSH IV FLUSH SCH ×2 (08:41→21:00)
--- NOTE | 2017-03-25 18:49 | HHI.PR ---
Subjective Remarks Patient still c/o pain 8/10 in buttocks and scrotum Objective Vitals Vital Signs Date Time Temp Pulse Resp B/P (MAP) Pulse Ox O2 Delivery O2 Flow Rate FiO2 03/25/17 16:10 98.2 67 16 142/84 (103) 100 03/25/17 11:58 97.8 66 20 120/76 (91) 98 03/25/17 08:54 97.6 56 16 112/68 (83) 97 03/25/17 07:41 88 03/25/17 04:00 96.9 60 20 125/77 (93) 90 03/25/17 00:00 97.9 61 16 130/79 (96) 90 03/24/17 20:00 98.2 72 20 160/88 (112) 92 03/24/17 20:00 76 I/O 03/24/17 03/24/17 03/24/17 03/25/17 03/25/17 03/25/17 07:00 15:00 23:00 07:00 15:00 23:00 Intake Total 480 ml 100 ml 480 ml 480 ml 1200 ml Output Total 900 ml 800 ml 650 ml Balance -420 ml 100 ml -320 ml -170 ml 1200 ml Intake Oral 480 ml 100 ml 480 ml 480 ml 1200 ml Output Urine Total 900 ml 800 ml 650 ml # Voids 2 1 # Bowel Movements 3 0 1 Result Diagram: 03/21/17 0645 Imaging Last Impressions Head CT 03/18/17 0000 Signed Impressions: Service Date/Time: Saturday, March 18, 2017 16:20 - CONCLUSION: Stable brain appearance. Frankie Hilton MD Objective Remarks AAOx3, moderate distress due to pain Cleart lungs BL There are some open vesicles in the right buttock and scrotum S1S2 RRR, no MRG abdomen soft, nt, nd Procedures None Medications and IVs Current Medications Medications (Trade) Dose Ordered Sig/Michael Route Start Time Stop Time Status Last Admin (NS Flush) 2 ml UNSCH PRN IV FLUSH 03/18/17 16:15 (NS Flush) 2 ml BID IV FLUSH 03/18/17 21:00 03/25/17 21:00 (Zofran Inj) 4 mg Q6H PRN IVP 03/18/17 16:15 (Narcan Inj) 0.4 mg UNSCH PRN IV 9/9/17 16:15 (Senokot) 17.2 mg Q12H PRN PO 03/18/17 16:15 03/19/17 10:04 (Lactulose Liq) 30 ml DAILY PRN PO 03/18/17 16:15 (Tylenol) 1,000 mg Q8H PRN PO 03/19/17 08:15 (Norvasc) 10 mg DAILY PO 03/19/17 09:00 03/25/17 08:39 (Coreg) 12.5 mg BID PO 03/19/17 09:00 03/25/17 20:00 (Plavix) 75 mg DAILY PO 03/19/17 09:00 03/25/17 08:40 (Aricept) 5 mg HS PO 03/19/17 21:00 03/25/17 20:01 (Proscar) 5 mg DAILY PO 03/19/17 09:00 03/25/17 08:40 (Glucotrol) 5 mg DAILY PO 03/19/17 09:00 03/25/17 08:38 (Glucophage) 500 mg BIDPC PO 03/19/17 09:00 03/25/17 15:40 (Senna Liq) 17.6 mg BID PO 03/19/17 10:00 03/25/17 08:38 (Januvia) 100 mg DAILY PO 03/19/17 10:00 03/25/17 08:40 (Topamax) 25 mg BID PO 03/19/17 09:00 03/25/17 20:00 (Prinivil) 40 mg DAILY PO 03/19/17 09:00 03/25/17 08:40 Patient Own Medication PT OWN MED: NATEGLIN... TIDAC PO 03/19/17 12:00 Future Hold (Lipitor) 80 mg DAILY PO 03/19/17 10:00 03/25/17 08:39 ([place] 10-325 Mg) 1 tab Q4H PRN PO 03/19/17 09:30 03/25/17 22:34 ([place] 5-325 Mg) 1 tab Q4H PRN PO 03/19/17 09:30 (Zovirax) 800 mg 5 TIMES A DAY PO 03/19/17 14:00 03/25/17 22:34 (Lidoderm 5% Patch.12 Hr) 1 patch DAILY T-DERMAL 03/20/17 14:00 03/25/17 08:38 (Flomax) 0.4 mg DAILY PO 03/22/17 09:00 03/25/17 08:40 (Dilaudid Pf Inj) 0.5 mg Q4H PRN IV PUSH 03/22/17 10:45 03/24/17 14:07 Miscellaneous Information 1 HS T-DERMAL 03/22/17 21:00 03/25/17 21:00 (D50w (Vial) Inj) 50 ml UNSCH PRN IV 03/22/17 13:00 (Glucagon Inj) 1 mg UNSCH PRN OTHER 03/22/17 13:00 (NovoLOG SUPPLEMENTAL SCALE) 1 ACHS SLIDING SCALE SQ 03/22/17 17:00 03/24/17 12:18 (Neurontin) 400 mg TID PO 03/24/17 18:00 03/25/17 15:40 (TEGretol) 400 mg BID PO 03/25/17 21:00 03/25/17 20:01 (OxyCONTIN CR) 20 mg Q12HR PO 03/25/17 21:00 03/25/17 20:02 (OxyCONTIN CR) 10 mg Q12HR PO 03/25/17 21:00 03/25/17 20:01 A/P Problem List: (1) Physical deconditioning ICD Code: R53.81 - Other malaise Status: Acute (2) Medication side effects ICD Code: T88.7XXA - Unspecified adverse effect of drug or medicament, initial encounter Status: Acute (3) Acute delirium ICD Code: R41.0 - Disorientation, unspecified (4) Altered mental status ICD Code: R41.82 - Altered mental status, unspecified Status: Acute (5) Shingles ICD Code: B02.9 - Zoster without complications (6) Right flank pain ICD Code: R10.9 - Unspecified abdominal pain Status: Acute (7) Chronic back pain ICD Code: G89.29 - Other chronic pain; M54.9 - Chronic back pain Status: Acute Assessment and Plan 81-year-old male admitted secondary to acute delirium. Delirium improved with cessation of Percocet. Pain is not controlled off narcotics. Trial of [place] provided today. If this works patient can be discharged once pharmacies reopen. Acute delirium - resolved. Likely secondary to narcotic use Involuntary overdose [place] provided as a pain treatment Lidoderm patch to be added to right lower back Monitor for any worsening of mental status Tramadol discontinued, it did not work for pain control Patient started on Naproxen after renal function improved which has been discontinued CT of brain completed and shows no pathology Follow clinically for improvement Shingles Genital and right buttock location 03/22 Pain still uncontrolled- Will DC Naproxen. Pain is likely neuropathic in origin secondary to herpes zoster infection. Continue acyclovir 800 mg by mouth 5 times a day. I will start the patient on long-acting oxycodone, continue Lortab and will start on Dilaudid 0.5 mg IV for breakthrough pain. I will consult wound care. 03/23 Wound care consulted. appreciate recommendations. Continue long-acting oxycodone and Lortab. I will increase the dose of gabapentin to 600 mg by mouth 3 times a day. 03/24 continue wound care. Patient still with severe pain in buttocks and scrotum. Likely due to neuropathic pain. I will increase the long-acting oxycodone from 10 mg by mouth every 12 hours to 20 mg by mouth every 12 hours and continue Lortab as needed. I will also increase the dose of gabapentin to 900 mg by mouth 3 times a day. The patient will need outpatient referral to pain management. 03/25 Still c/o of significant pain. Increase Carbamazepine dose. Will also increase Oxycodone ER to 30 mg po every 12 hours. Increase gabapentin dose to 400 mg po TID. Urinary retention 03/22 Patient had successful voiding trials. Continue Flomax. Urinary retention resolved. 03/25 Keen catheter was reinserted on 03/23. On Flomax, will do voiding trials in am. Cardiac arrhythmia Coronary artery disease Old myocardial infarction Follow on telemetry Pacemaker is present Hyperlipidemia No change to baseline treatment Follows in outpatient BPH Acute kidney injury CKDstage III Likely due to prerenal azotemia. Resolved after IV fluid administration. Upon review of records the patient has had some increased creatinine with a baseline of 1.1 since 2016. Likely secondary to chronic kidney disease stage III. 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 The patient seems to be stable as well as osteoarthritis. DVT prophylaxis SCDs Discharge Planning Patient still with uncontrolled pain. Patient will need to be discharged home with home health PT as per PT recommendations once pain is controlled. Problem Qualifiers (1) Medication side effects: Qualified Codes: T88.7XXA - Unspecified adverse effect of drug or medicament, initial encounter (2) Altered mental status: Qualified Codes: R41.0 - Disorientation, unspecified (3) Shingles: Qualified Codes: B02.9 - Zoster without complications Marlo Blum MD Mar 25, 2017 18:49
[2017-03-25] MEDS: DONEPEZIL HCL 5 MG TAB PO SCH (20:01)
[2017-03-25] MEDS: oxyCODONE HCL 10 MG CONTROLLED RELEASE TAB PO SCH (20:01)
[2017-03-25] MEDS: REMOVE OLD PATCH T-DERMAL SCH (21:00)
[2017-03-26] VITALS: BP 133/78; PULSE 67; RESP 22; TEMP 98.4; O2SAT 99
[2017-03-26] MEDS: HYDROmorphone HCL PF 1 MG/ML VIAL IV PUSH PRN ×2 (05:28→20:33)
[2017-03-26] MEDS: ACYCLOVIR 800 MG TAB PO SCH ×5 (05:28→21:59)
[2017-03-26] MEDS: ACETAMINOPHEN/HYDROcodone 325 MG/10 MG TAB PO PRN ×4 (06:39→22:00)
[2017-03-26 08:00] VITALS: BP 136/82; PULSE 66; RESP 20; TEMP 96.7; O2SAT 95
[2017-03-26] MEDS: INSULIN ASPART SUPPLEMENTAL SCALE SQ SCH ×4 (08:00→20:33)
[2017-03-26] MEDS: SODIUM CHLORIDE 0.9% FLUSH 10 ML FLUSH IV FLUSH SCH ×2 (09:52→20:18)
[2017-03-26] MEDS: TOPIRAMATE 25 MG TAB PO SCH ×2 (09:52→20:17)
[2017-03-26] MEDS: metFORMIN HCL 500 MG TAB PO SCH ×2 (09:52→16:58)
[2017-03-26] MEDS: TAMSULOSIN HCL 0.4 MG CAP PO SCH (09:53)
[2017-03-26] MEDS: FINASTERIDE 5 MG TAB PO SCH (09:53)
[2017-03-26] MEDS: ATORVASTATIN 40 MG TAB PO SCH (09:53)
[2017-03-26] MEDS: carBAMazepine 200 MG TAB PO SCH ×2 (09:53→20:18)
[2017-03-26] MEDS: GABAPENTIN 400 MG CAP PO SCH (09:54)
[2017-03-26] MEDS: LISINOPRIL 20 MG TAB PO SCH (09:54)
[2017-03-26] MEDS: SENNOSIDES SYRUP 8.8 MG/5 ML CUP PO SCH ×2 (09:54→20:18)
[2017-03-26] MEDS: CARVEDILOL 12.5 MG TAB PO SCH ×2 (09:54→20:17)
[2017-03-26] MEDS: CLOPIDOGREL 75 MG TAB PO SCH (09:55)
[2017-03-26] MEDS: glipiZIDE 5 MG TAB PO SCH (09:55)
[2017-03-26] MEDS: oxyCODONE HCL 10 MG CONTROLLED RELEASE TAB PO SCH (09:55)
[2017-03-26] MEDS: oxyCODONE HCL 20 MG CONTROLLED RELEASE TAB PO SCH (09:56)
[2017-03-26] MEDS: LIDOCAINE HCL 5% PATCH T-DERMAL SCH (09:56)
--- NOTE | 2017-03-26 13:52 | HHI.PR ---
Subjective Remarks PAtient still c/o severe pain and burning in the scrotum and buttocks. Objective Vitals Vital Signs Date Time Temp Pulse Resp B/P (MAP) Pulse Ox O2 Delivery O2 Flow Rate FiO2 03/26/17 10:55 18 03/26/17 10:55 18 03/26/17 08:00 96.7 66 20 136/82 (100) 95 03/26/17 07:39 18 03/26/17 00:00 98.4 67 22 133/78 (96) 99 03/25/17 20:00 98.3 70 22 144/89 (107) 99 03/25/17 16:10 98.2 67 16 142/84 (103) 100 I/O 03/25/17 03/25/17 03/25/17 03/26/17 03/26/17 03/26/17 07:00 15:00 23:00 07:00 15:00 23:00 Intake Total 480 ml 1200 ml 240 ml Output Total 650 ml 1200 ml 1100 ml 600 ml Balance -170 ml 0 ml -860 ml -600 ml Intake Oral 480 ml 1200 ml 240 ml Output Urine Total 650 ml 1200 ml 1100 ml 600 ml # Voids 1 # Bowel Movements 1 Imaging Last Impressions Head CT 03/18/17 0000 Signed Impressions: Service Date/Time: Saturday, March 18, 2017 16:20 - CONCLUSION: Stable brain appearance. Frankie Hilton MD Objective Remarks AAOx3, mild to moderate distress due to pain Cleart lungs BL There are somedry vesicles in the right buttock and scrotum S1S2 RRR, no MRG abdomen soft, nt, nd Procedures None Medications and IVs Current Medications Medications (Trade) Dose Ordered Sig/Michael Route Start Time Stop Time Status Last Admin (NS Flush) 2 ml UNSCH PRN IV FLUSH 03/18/17 16:15 (NS Flush) 2 ml BID IV FLUSH 03/18/17 21:00 03/26/17 09:52 (Zofran Inj) 4 mg Q6H PRN IVP 03/18/17 16:15 (Narcan Inj) 0.4 mg UNSCH PRN IV 03/18/17 16:15 (Senokot) 17.2 mg Q12H PRN PO 03/18/17 16:15 03/19/17 10:04 (Lactulose Liq) 30 ml DAILY PRN PO 03/18/17 16:15 (Tylenol) 1,000 mg Q8H PRN PO 03/19/17 08:15 (Norvasc) 10 mg DAILY PO 03/19/17 09:00 03/26/17 09:55 (Coreg) 12.5 mg BID PO 03/19/17 09:00 03/26/17 09:54 (Plavix) 75 mg DAILY PO 03/19/17 09:00 03/26/17 09:55 (Aricept) 5 mg HS PO 03/19/17 21:00 03/25/17 20:01 (Proscar) 5 mg DAILY PO 03/19/17 09:00 03/26/17 09:53 (Glucotrol) 5 mg DAILY PO 03/19/17 09:00 03/26/17 09:55 (Glucophage) 500 mg BIDPC PO 03/19/17 09:00 03/26/17 16:58 (Senna Liq) 17.6 mg BID PO 03/19/17 10:00 03/26/17 09:54 (Januvia) 100 mg DAILY PO 03/19/17 10:00 03/26/17 09:55 (Topamax) 25 mg BID PO 03/19/17 09:00 03/26/17 09:52 (Prinivil) 40 mg DAILY PO 03/19/17 09:00 03/26/17 09:54 Patient Own Medication PT OWN MED: NATEGLIN... TIDAC PO 03/19/17 12:00 Future Hold (Lipitor) 80 mg DAILY PO 03/19/17 10:00 03/26/17 09:53 ([place] 10-325 Mg) 1 tab Q4H PRN PO 03/19/17 09:30 03/26/17 17:56 ([place] 5-325 Mg) 1 tab Q4H PRN PO 03/19/17 09:30 (Zovirax) 800 mg 5 TIMES A DAY PO 03/19/17 14:00 03/26/17 16:58 (Lidoderm 5% Patch.12 Hr) 1 patch DAILY T-DERMAL 03/20/17 14:00 03/26/17 09:56 (Flomax) 0.4 mg DAILY PO 03/22/17 09:00 03/26/17 09:53 (Dilaudid Pf Inj) 0.5 mg Q4H PRN IV PUSH 03/22/17 10:45 03/26/17 05:28 Miscellaneous Information 1 HS T-DERMAL 03/22/17 21:00 03/25/17 21:00 (D50w (Vial) Inj) 50 ml UNSCH PRN IV 03/22/17 13:00 (Glucagon Inj) 1 mg UNSCH PRN OTHER 03/22/17 13:00 (NovoLOG SUPPLEMENTAL SCALE) 1 ACHS SLIDING SCALE SQ 03/22/17 17:00 03/26/17 12:25 (TEGretol) 400 mg BID PO 03/25/17 21:00 03/26/17 09:53 (Neurontin) 600 mg TID PO 03/26/17 18:00 03/26/17 16:58 (Duragesic 25 Mcg Patch.72 Hr) 1 patch Q3D T-DERMAL 03/26/17 15:00 03/26/17 14:59 Miscellaneous Information 1 Q3D T-DERMAL 03/29/17 15:00 A/P Problem List: (1) Physical deconditioning ICD Code: R53.81 - Other malaise Status: Acute (2) Medication side effects ICD Code: T88.7XXA - Unspecified adverse effect of drug or medicament, initial encounter Status: Acute (3) Acute delirium ICD Code: R41.0 - Disorientation, unspecified (4) Altered mental status ICD Code: R41.82 - Altered mental status, unspecified Status: Acute (5) Shingles ICD Code: B02.9 - Zoster without complications (6) Right flank pain ICD Code: R10.9 - Unspecified abdominal pain Status: Acute (7) Chronic back pain ICD Code: G89.29 - Other chronic pain; M54.9 - Chronic back pain Status: Acute Assessment and Plan 81-year-old male admitted secondary to acute delirium. Delirium improved with cessation of Percocet. Pain is not controlled off narcotics. Trial of [place] provided today. If this works patient can be discharged once pharmacies reopen. Encephalopathy CT of the brain did not show any acute pathology. The metabolic encephalopathy due to narcotic use and overdose. Pain control initially provided with [place] and let them patch. Tramadol discontinued since it did not work for pain control. Afterwards the patient was started on naproxen after renal function improved and discontinued later. Delirium resolved. Likely secondary to narcotic use Shingles Genital and right buttock location. The patient started on oral opiates initially. Trauma will discontinue. Basic neuropathic in origin secondary to zoster infection. Patient's on acyclovir 800 mg by mouth 4 times a day. Patient started on long- acting oxycodone on 03/22 as well as Dilaudid 0.5 mg IV for breakthrough pain. Wound care consulted to provide recommendations on how to treat the patient's open vesicles. Patient with persistent pain despite being on long-acting oxycodone and going up on the dose up to 30 mg by mouth every 12 hours and been on Lortab. He has been getting IV Dilaudid for breakthrough pain. Patient was also started on carbamazepine. 03/26 I will discontinue him acting oxycodone and place the patient on a fentanyl patch. Continue IV Dilaudid for breakthrough pain as well as carbamazepine and Lortab. Urinary retention Patient with urinary retention and successful voiding trials. Started on Flomax which will be continued. However the patient had the Major catheter reinserted for persistent urinary retention on 03/23. Will give an extra dose of Flomax prior to removing major catheter. Voiding trials. Cardiac arrhythmia Coronary artery disease Old myocardial infarction Follow on telemetry Pacemaker is present No events observed on telemetry. Hyperlipidemia No change to baseline treatment Follows in outpatient BPH Acute kidney injury CKDstage III Likely due to prerenal azotemia. Resolved after IV fluid administration. Upon review of records the patient has had some increased creatinine with a baseline of 1.1 since 2016. Likely secondary to chronic kidney disease stage III. 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 The patient seems to be stable as well as osteoarthritis. DVT prophylaxis SCDs Discharge Planning Patient still with uncontrolled pain. Patient will need to be discharged home with home health PT as per PT recommendations once pain is controlled. Problem Qualifiers (1) Medication side effects: Qualified Codes: T88.7XXA - Unspecified adverse effect of drug or medicament, initial encounter (2) Altered mental status: Qualified Codes: R41.0 - Disorientation, unspecified (3) Shingles: Qualified Codes: B02.9 - Zoster without complications Marlo Blum MD Mar 26, 2017 13:52
[2017-03-26] MEDS ORDERED: fentaNYL 25 MCG/HR PATCH T-DERMAL SCH (15:00)
[2017-03-26 16:00] VITALS: BP 143/84; PULSE 62; RESP 20; TEMP 97.2; O2SAT 97
[2017-03-26] MEDS: GABAPENTIN 300 MG CAP PO SCH (16:58)
[2017-03-26] MEDS ORDERED: TAMSULOSIN HCL 0.4 MG CAP PO ONE (19:30)
[2017-03-26 20:00] VITALS: BP 148/80; PULSE 64; RESP 20; TEMP 96.4; O2SAT 94
[2017-03-26] MEDS: DONEPEZIL HCL 5 MG TAB PO SCH (20:17)
[2017-03-26] MEDS: REMOVE OLD PATCH T-DERMAL SCH (20:47)
[2017-03-27] VITALS (7 sets, daily range): BP systolic 119–184; BP diastolic 65–96; PULSE 60–95; RESP 18–20; TEMP 96.3–97.9; O2SAT 91–95
[2017-03-27 02:20] LABS: BLOOD, URINE SMALL (NEG); GLUCOSE,URINE NEG (NEG); KETONE, URINE NEG (NEG); NITRITE,URINE NEG (NEG); PH, URINE 5.5 (5.0-8.5)
[2017-03-27 02:37] LABS: METHOD OF COLLECTION VOIDED; URINE COLOR STRAW (YELLW/STRAW)
[2017-03-27 02:38] LABS: BACTERIA, URINE RARE /hpf; COMMENT (UR) CULTURE INDICATED; CULTURE IF INDICATED CULTURE INDICATED; SQUAMOUS EPITHELIAL CELL URINE 0-2 /hpf (0-5); WBC, URINE 0-2 /hpf (0-5)
[2017-03-27] MEDS: ACYCLOVIR 800 MG TAB PO SCH ×5 (05:25→21:17)
[2017-03-27] MEDS: ACETAMINOPHEN/HYDROcodone 325 MG/10 MG TAB PO PRN ×2 (05:25→13:41)
[2017-03-27] MEDS: INSULIN ASPART SUPPLEMENTAL SCALE SQ SCH ×4 (08:00→21:18)
[2017-03-27] MEDS: LIDOCAINE HCL 5% PATCH T-DERMAL SCH (10:38)
[2017-03-27] MEDS: SENNOSIDES SYRUP 8.8 MG/5 ML CUP PO SCH ×2 (10:40→21:17)
[2017-03-27] MEDS: TAMSULOSIN HCL 0.4 MG CAP PO SCH (10:40)
[2017-03-27] MEDS: CARVEDILOL 12.5 MG TAB PO SCH ×2 (10:41→21:17)
[2017-03-27] MEDS: TOPIRAMATE 25 MG TAB PO SCH ×2 (10:41→21:18)
[2017-03-27] MEDS: GABAPENTIN 300 MG CAP PO SCH ×3 (10:41→18:14)
[2017-03-27] MEDS: metFORMIN HCL 500 MG TAB PO SCH ×2 (10:41→18:14)
[2017-03-27] MEDS: glipiZIDE 5 MG TAB PO SCH (10:41)
[2017-03-27] MEDS: ATORVASTATIN 40 MG TAB PO SCH (10:42)
[2017-03-27] MEDS: LISINOPRIL 20 MG TAB PO SCH (10:42)
[2017-03-27] MEDS: FINASTERIDE 5 MG TAB PO SCH (10:42)
[2017-03-27] MEDS: carBAMazepine 200 MG TAB PO SCH ×2 (10:43→21:18)
[2017-03-27] MEDS: SODIUM CHLORIDE 0.9% FLUSH 10 ML FLUSH IV FLUSH SCH ×2 (10:43→21:19)
[2017-03-27] MEDS: CLOPIDOGREL 75 MG TAB PO SCH (10:43)
[2017-03-27] MEDS: cefTRIAXone INJ 2,000 MG in SODIUM CHLORIDE 0.9% INJ 100 ML IV SCH (12:14)
--- NOTE | 2017-03-27 17:03 | HHI.PR ---
Subjective Remarks Discussed overnight events with RN. As per RN the patient got bladder scan twice, urinalysis was sent by overnight team which came positive. The patient's significant other is at bedside and states the patient is weaker and groggy The patient initially is sleeping when I worked in the room, wakes up easily, however he states that his pain is 8/10 in intensity Objective Vitals Vital Signs Date Time Temp Pulse Resp B/P (MAP) Pulse Ox O2 Delivery O2 Flow Rate FiO2 03/27/17 16:00 96.5 65 20 138/77 (97) 91 03/27/17 12:00 96.3 75 18 148/87 (107) 92 03/27/17 08:00 97.1 60 20 147/83 (104) 91 03/27/17 04:00 97.5 63 20 119/65 (83) 95 03/27/17 00:00 97.2 60 20 133/77 (95) 92 03/26/17 20:00 96.4 64 20 148/80 (102) 94 I/O 03/26/17 03/26/17 03/26/17 03/27/17 03/27/17 03/27/17 07:00 15:00 23:00 07:00 15:00 23:00 Intake Total 240 ml 480 ml 220 ml 460 ml Output Total 1100 ml 600 ml 700 ml 450 ml 375 ml Balance -860 ml -600 ml -220 ml -230 ml 85 ml Intake Oral 240 ml 480 ml 220 ml 360 ml IV Total 100 ml Output Urine Total 1100 ml 600 ml 700 ml 450 ml 375 ml Bladder Scan Volume Amount 371 ml # Voids 2 # Bowel Movements 0 0 0 Imaging Last Impressions Head CT 03/18/17 0000 Signed Impressions: Service Date/Time: Saturday, March 18, 2017 16:20 - CONCLUSION: Stable brain appearance. Frankie Hilton MD Objective Remarks lethargic, not in pain distress Cleart lungs BL There are somedry vesicles in the right buttock and scrotum S1S2 RRR, no MRG abdomen soft, there is some tenderness on palpation of the hypogastrium and bladder distention. Bowel sounds present. Procedures None Medications and IVs Current Medications Medications (Trade) Dose Ordered Sig/Michael Route Start Time Stop Time Status Last Admin (NS Flush) 2 ml UNSCH PRN IV FLUSH 03/18/17 16:15 (NS Flush) 2 ml BID IV FLUSH 03/18/17 21:00 03/27/17 10:43 (Zofran Inj) 4 mg Q6H PRN IVP 03/18/17 16:15 (Narcan Inj) 0.4 mg UNSCH PRN IV 03/18/17 16:15 (Senokot) 17.2 mg Q12H PRN PO 03/18/17 16:15 03/19/17 10:04 (Lactulose Liq) 30 ml DAILY PRN PO 03/18/17 16:15 (Tylenol) 1,000 mg Q8H PRN PO 03/19/17 08:15 (Norvasc) 10 mg DAILY PO 03/19/17 09:00 03/27/17 10:43 (Coreg) 12.5 mg BID PO 03/19/17 09:00 03/27/17 10:41 (Plavix) 75 mg DAILY PO 03/19/17 09:00 03/27/17 10:43 (Aricept) 5 mg HS PO 03/19/17 21:00 03/26/17 20:17 (Proscar) 5 mg DAILY PO 03/19/17 09:00 03/27/17 10:42 (Glucotrol) 5 mg DAILY PO 03/19/17 09:00 03/27/17 10:41 (Glucophage) 500 mg BIDPC PO 03/19/17 09:00 03/27/17 10:41 (Senna Liq) 17.6 mg BID PO 03/19/17 10:00 03/27/17 10:40 (Januvia) 100 mg DAILY PO 03/19/17 10:00 03/27/17 10:41 (Topamax) 25 mg BID PO 03/19/17 09:00 03/27/17 10:41 (Prinivil) 40 mg DAILY PO 03/19/17 09:00 03/27/17 10:42 Patient Own Medication PT OWN MED: NATEGLIN... TIDAC PO 03/19/17 12:00 Future Hold (Lipitor) 80 mg DAILY PO 03/19/17 10:00 03/27/17 10:42 ([place] 10-325 Mg) 1 tab Q4H PRN PO 03/19/17 09:30 03/27/17 13:41 ([place] 5-325 Mg) 1 tab Q4H PRN PO 03/19/17 09:30 (Zovirax) 800 mg 5 TIMES A DAY PO 03/19/17 14:00 03/27/17 13:41 (Lidoderm 5% Patch.12 Hr) 1 patch DAILY T-DERMAL 03/20/17 14:00 03/27/17 10:38 (Flomax) 0.4 mg DAILY PO 03/22/17 09:00 03/27/17 10:40 (Dilaudid Pf Inj) 0.5 mg Q4H PRN IV PUSH 03/22/17 10:45 03/26/17 20:33 (D50w (Vial) Inj) 50 ml UNSCH PRN IV 03/22/17 13:00 (Glucagon Inj) 1 mg UNSCH PRN OTHER 03/22/17 13:00 (NovoLOG SUPPLEMENTAL SCALE) 1 ACHS SLIDING SCALE SQ 03/22/17 17:00 03/26/17 20:33 (TEGretol) 400 mg BID PO 03/25/17 21:00 03/27/17 10:43 (Neurontin) 600 mg TID PO 03/26/17 18:00 03/27/17 13:41 Ceftriaxone Sodium 2000 mg/ Sodium Chloride 100 ml @ 200 mls/hr Q24H IV 03/27/17 11:00 03/27/17 12:14 A/P Problem List: (1) Physical deconditioning ICD Code: R53.81 - Other malaise Status: Acute (2) Medication side effects ICD Code: T88.7XXA - Unspecified adverse effect of drug or medicament, initial encounter Status: Acute (3) Acute delirium ICD Code: R41.0 - Disorientation, unspecified (4) Altered mental status ICD Code: R41.82 - Altered mental status, unspecified Status: Acute (5) Shingles ICD Code: B02.9 - Zoster without complications (6) Right flank pain ICD Code: R10.9 - Unspecified abdominal pain Status: Acute (7) Chronic back pain ICD Code: G89.29 - Other chronic pain; M54.9 - Chronic back pain Status: Acute Assessment and Plan 81-year-old male admitted secondary to acute delirium. Delirium improved with cessation of Percocet. Pain is not controlled off narcotics. Trial of [place] provided today. If this works patient can be discharged once pharmacies reopen. Encephalopathy CT of the brain did not show any acute pathology. The metabolic encephalopathy due to narcotic use and overdose. Pain control initially provided with [place] and let them patch. Tramadol discontinued since it did not work for pain control. Afterwards the patient was started on naproxen after renal function improved and discontinued later. Delirium resolved. Likely secondary to narcotic use 03/27 patient seems to be lethargic and groggy. Likely toxic encephalopathy due to recently described fentanyl patch. I will discontinue fentanyl patch. Shingles/neuropathic pain Genital and right buttock location. The patient started on oral opiates initially. Trauma will discontinue. Basic neuropathic in origin secondary to zoster infection. Patient's on acyclovir 800 mg by mouth 4 times a day. Patient started on long- acting oxycodone on 03/22 as well as Dilaudid 0.5 mg IV for breakthrough pain. Wound care consulted to provide recommendations on how to treat the patient's open vesicles. Patient with persistent pain despite being on long-acting oxycodone and going up on the dose up to 30 mg by mouth every 12 hours and been on Lortab. He has been getting IV Dilaudid for breakthrough pain. Patient was also started on carbamazepine. 03/26 I will discontinue him acting oxycodone and place the patient on a fentanyl patch. Continue IV Dilaudid for breakthrough pain as well as carbamazepine and Lortab. 03/27 the patient is very lethargic. Suspect secondary to fentanyl patch. I will discontinue fentanyl patch for now. I will consult neurology for any further recommendations regarding pain control of neuropathic pain. Continue carbamazepine and Lortab as well as IV Dilaudid for breakthrough pain. Urinary retention Patient with urinary retention and successful voiding trials. Started on Flomax which will be continued. However the patient had the Major catheter reinserted for persistent urinary retention on 03/23. Will give an extra dose of Flomax prior to removing major catheter. Voiding trials. 03/27 patient seems to be retaining, on exam patient has a distended bladder. I will order postvoid residual bladder scan and if the patient is retaining more than 200 MLS of urine then ordered a Major catheter to be inserted. Then we'll consult urology. Cardiac arrhythmia Coronary artery disease Old myocardial infarction Follow on telemetry Pacemaker is present No events observed on telemetry. Hyperlipidemia No change to baseline treatment Follows in outpatient BPH Acute kidney injury CKDstage III Likely due to prerenal azotemia. Resolved after IV fluid administration. Upon review of records the patient has had some increased creatinine with a baseline of 1.1 since 2016. Likely secondary to chronic kidney disease stage III. 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 The patient seems to be stable as well as osteoarthritis. DVT prophylaxis SCDs Discharge Planning Patient still with uncontrolled pain. Patient will need to be discharged home with home health PT as per PT recommendations once pain is controlled. Pending neurology relation. Problem Qualifiers (1) Medication side effects: Qualified Codes: T88.7XXA - Unspecified adverse effect of drug or medicament, initial encounter (2) Altered mental status: Qualified Codes: R41.0 - Disorientation, unspecified (3) Shingles: Qualified Codes: B02.9 - Zoster without complications Marlo Blum MD Mar 27, 2017 17:03
[2017-03-27] MEDS: REMOVE OLD PATCH T-DERMAL SCH (17:35)
[2017-03-27] MEDS: DONEPEZIL HCL 5 MG TAB PO SCH (21:18)
[2017-03-28] VITALS: BP 178/86; PULSE 9; RESP 18; TEMP 100.8; O2SAT 91
[2017-03-28 04:00] VITALS: BP 140/78; PULSE 80; RESP 18; TEMP 99.7; O2SAT 96
[2017-03-28] MEDS: ACYCLOVIR 800 MG TAB PO SCH ×5 (05:16→21:05)
[2017-03-28] MEDS: INSULIN ASPART SUPPLEMENTAL SCALE SQ SCH ×4 (08:00→21:00)
[2017-03-28] MEDS: LIDOCAINE HCL 5% PATCH T-DERMAL SCH (09:15)
[2017-03-28] MEDS: SENNOSIDES SYRUP 8.8 MG/5 ML CUP PO SCH ×2 (09:15→21:05)
[2017-03-28] MEDS: carBAMazepine 200 MG TAB PO SCH (09:16)
[2017-03-28] MEDS: GABAPENTIN 300 MG CAP PO SCH ×2 (09:16→12:59)
[2017-03-28] MEDS: metFORMIN HCL 500 MG TAB PO SCH ×2 (09:16→17:38)
[2017-03-28] MEDS: LISINOPRIL 20 MG TAB PO SCH (09:16)
[2017-03-28] MEDS: glipiZIDE 5 MG TAB PO SCH (09:17)
[2017-03-28] MEDS: TOPIRAMATE 25 MG TAB PO SCH ×2 (09:17→21:05)
[2017-03-28] MEDS: CLOPIDOGREL 75 MG TAB PO SCH (09:17)
[2017-03-28] MEDS: FINASTERIDE 5 MG TAB PO SCH (09:17)
[2017-03-28] MEDS: CARVEDILOL 12.5 MG TAB PO SCH ×2 (09:17→21:05)
[2017-03-28] MEDS: TAMSULOSIN HCL 0.4 MG CAP PO SCH (09:17)
[2017-03-28] MEDS: ATORVASTATIN 40 MG TAB PO SCH (09:17)
[2017-03-28] MEDS: SODIUM CHLORIDE 0.9% FLUSH 10 ML FLUSH IV FLUSH SCH ×2 (09:18→21:04)
[2017-03-28 09:20] VITALS: BP 144/77; PULSE 67; RESP 16; TEMP 97.2; O2SAT 97
[2017-03-28] MEDS: cefTRIAXone INJ 2,000 MG in SODIUM CHLORIDE 0.9% INJ 100 ML IV SCH (10:03)
[2017-03-28] MEDS ORDERED: VANCOMYCIN INJ 1,000 MG in SODIUM CHLOR 0.9% 250 ML INJ 250 ML IV SCH (12:00)
[2017-03-28 12:22] LABS: AUTOMATED NEUTROPHIL # 10.3 TH/MM3 (1.8-7.7); BASOPHIL # 0.2 TH/MM3 (0-0.2); BASOPHIL % 1.5 % (0.0-2.0); EOSINOPHIL # 0.1 TH/MM3 (0-0.4); EOSINOPHIL % 1.1 % (0.0-4.0); HEMATOCRIT 35.2 % (39.0-51.0); HEMO FLAGS DIFF FINAL; LYMPH % 5.8 % (9.0-44.0); LYMPHOCYTE # 0.7 TH/MM3 (1.0-4.8); MEAN CELL VOLUME 93.2 FL (80.0-100.0); MEAN CORPUSCULAR HEMOGLOBIN 30.9 PG (27.0-34.0); MEAN CORPUSCULAR HGB CONC 33.1 % (32.0-36.0); MONO % 5.6 % (0.0-8.0); PLATELET COUNT 210 TH/MM3 (150-450); RED BLOOD COUNT 3.78 MIL/MM3 (4.50-5.90); RED CELL DISTRIBUTION WIDTH 14.5 % (11.6-17.2)
[2017-03-28 12:30] LABS: CHLORIDE 103 MEQ/L (98-107); SODIUM (NA) 139 MEQ/L (136-145)
[2017-03-28 12:34] LABS: ANION GAP 5 MEQ/L (5-15); BICARBONATE 30.9 MEQ/L (21.0-32.0); BLOOD UREA NITROGEN 22 MG/DL (7-18); MAGNESIUM 2.1 MG/DL (1.5-2.5)
[2017-03-28 12:37] LABS: ALT (GPT) 25 U/L (12-78); AST (GOT) 11 U/L (15-37); GLOMERULAR FILTRATION RATE 65 ML/MIN (>89)
[2017-03-28 12:38] LABS: TOTAL BILIRUBIN ADULT 0.2 MG/DL (0.2-1.0)
[2017-03-28 12:40] LABS: ALKALINE PHOSPHATASE 112 U/L (45-117)
[2017-03-28] MEDS ORDERED: Vancomycin Consult Pharmacy 1 EA OTHER SCH ×2 (13:45→17:00)
[2017-03-28] MEDS: SODIUM CHLOR 0.9% 1000 ML INJ 1,000 ML IV SCH (15:00)
[2017-03-28 15:04] VITALS: BP 139/73; PULSE 73; RESP 20; TEMP 98.3; O2SAT 97
--- NOTE | 2017-03-28 16:02 | HHI.PR ---
Subjective Remarks As per RN very lethargic patient opens eyes and has difficulty answering questions able to respond with head and some words nodded no when asked for pain. Objective Vitals Vital Signs Date Time Temp Pulse Resp B/P (MAP) Pulse Ox O2 Delivery O2 Flow Rate FiO2 03/28/17 15:04 98.3 73 20 139/73 (95) 97 03/28/17 09:20 97.2 67 16 144/77 (99) 97 03/28/17 04:00 99.7 80 18 140/78 (98) 96 03/28/17 00:00 100.8 9 18 178/86 (116) 91 03/27/17 23:41 Nasal Cannula 2.00 03/27/17 23:40 91 21 03/27/17 20:00 97.9 95 18 184/96 (125) 94 03/27/17 16:00 96.5 65 20 138/77 (97) 91 I/O 03/27/17 03/27/17 03/27/17 03/28/17 03/28/17 03/28/17 06:59 14:59 22:59 06:59 14:59 22:59 Intake Total 220 ml 460 ml 100 ml Output Total 450 ml 375 ml 600 ml 2100 ml Balance -230 ml 85 ml -600 ml -2100 ml 100 ml Intake Oral 220 ml 360 ml 100 ml IV Total 100 ml Output Urine Total 450 ml 375 ml 600 ml 2100 ml Bladder Scan Volume Amount 632 ml # Voids 2 # Bowel Movements 0 0 1 Result Diagram: 03/28/17 1210 03/28/17 1210 Imaging Last Impressions Head CT 03/18/17 0000 Signed Impressions: Service Date/Time: Saturday, March 18, 2017 16:20 - CONCLUSION: Stable brain appearance. Frankie Hilton MD Objective Remarks lethargic, not in pain distress Cleart lungs BL There are somedry vesicles in the right buttock and scrotum S1S2 RRR, no MRG abdomen soft, there is some tenderness on palpation of the hypogastrium and bladder distention. Bowel sounds present. patient awakens when talked to, slurred speech. Does not follow commands. Procedures None Medications and IVs Current Medications Medications (Trade) Dose Ordered Sig/Michael Route Start Time Stop Time Status Last Admin (NS Flush) 2 ml UNSCH PRN IV FLUSH 03/18/17 16:15 (NS Flush) 2 ml BID IV FLUSH 03/18/17 21:00 03/28/17 09:18 (Zofran Inj) 4 mg Q6H PRN IVP 03/18/17 16:15 (Narcan Inj) 0.4 mg UNSCH PRN IV 03/18/17 16:15 (Senokot) 17.2 mg Q12H PRN PO 03/18/17 16:15 03/19/17 10:04 (Lactulose Liq) 30 ml DAILY PRN PO 03/18/17 16:15 (Tylenol) 1,000 mg Q8H PRN PO 03/19/17 08:15 (Norvasc) 10 mg DAILY PO 03/19/17 09:00 03/28/17 09:17 (Coreg) 12.5 mg BID PO 03/19/17 09:00 03/28/17 09:17 (Plavix) 75 mg DAILY PO 03/19/17 09:00 03/28/17 09:17 (Aricept) 5 mg HS PO 03/19/17 21:00 03/27/17 21:18 (Proscar) 5 mg DAILY PO 03/19/17 09:00 03/28/17 09:17 (Glucotrol) 5 mg DAILY PO 03/19/17 09:00 03/28/17 09:17 (Glucophage) 500 mg BIDPC PO 03/19/17 09:00 03/28/17 09:16 (Senna Liq) 17.6 mg BID PO 03/19/17 10:00 03/28/17 09:15 (Januvia) 100 mg DAILY PO 03/19/17 10:00 03/28/17 09:15 (Topamax) 25 mg BID PO 03/19/17 09:00 03/28/17 09:17 (Prinivil) 40 mg DAILY PO 03/19/17 09:00 03/28/17 09:16 Patient Own Medication PT OWN MED: NATEGLIN... TIDAC PO 03/19/17 12:00 Future Hold (Lipitor) 80 mg DAILY PO 03/19/17 10:00 03/28/17 09:17 ([place] 10-325 Mg) 1 tab Q4H PRN PO 03/19/17 09:30 03/27/17 13:41 ([place] 5-325 Mg) 1 tab Q4H PRN PO 03/19/17 09:30 (Zovirax) 800 mg 5 TIMES A DAY PO 03/19/17 14:00 03/28/17 12:59 (Lidoderm 5% Patch.12 Hr) 1 patch DAILY T-DERMAL 03/20/17 14:00 03/28/17 09:15 (Dilaudid Pf Inj) 0.5 mg Q4H PRN IV PUSH 03/22/17 10:45 03/26/17 20:33 (D50w (Vial) Inj) 50 ml UNSCH PRN IV 03/22/17 13:00 (Glucagon Inj) 1 mg UNSCH PRN OTHER 03/22/17 13:00 (NovoLOG SUPPLEMENTAL SCALE) 1 ACHS SLIDING SCALE SQ 03/22/17 17:00 03/28/17 12:59 (TEGretol) 400 mg BID PO 03/25/17 21:00 03/28/17 09:16 (Neurontin) 600 mg TID PO 03/26/17 18:00 03/28/17 12:59 Ceftriaxone Sodium 2000 mg/ Sodium Chloride 100 ml @ 200 mls/hr Q24H IV 03/27/17 11:00 03/28/17 10:03 Vancomycin HCl 1000 mg/Sodium Chloride 250 ml @ 250 mls/hr Q12H IV 03/28/17 12:00 03/28/17 12:58 (Flomax) 0.4 mg DAILY PO 03/29/17 09:00 Sodium Chloride 1,000 ml @ 100 mls/hr Q10H IV 03/28/17 15:00 03/28/17 15:00 Pharmacy Profile Note 0 ml @ 0 mls/hr UNSCH OTHER 03/28/17 13:45 Urinary Catheter: No Vascular Central Line Catheter: No A/P Problem List: (1) Physical deconditioning ICD Code: R53.81 - Other malaise Status: Acute (2) Medication side effects ICD Code: T88.7XXA - Unspecified adverse effect of drug or medicament, initial encounter Status: Acute (3) Acute delirium ICD Code: R41.0 - Disorientation, unspecified (4) Altered mental status ICD Code: R41.82 - Altered mental status, unspecified Status: Acute (5) Shingles ICD Code: B02.9 - Zoster without complications (6) Right flank pain ICD Code: R10.9 - Unspecified abdominal pain Status: Acute (7) Chronic back pain ICD Code: G89.29 - Other chronic pain; M54.9 - Chronic back pain Status: Acute (8) Sepsis ICD Code: A41.9 - Sepsis, unspecified organism Plan: She now meets sepsis criteria with leukocytosis of 12 K and a low-grade fever with a MAXIMUM TEMPERATURE 100.8. Patient with positive urinalysis and urine culture growing Staphylococcus aureus. I will start the patient IV vancomycin and follow-up urine cultures. Obtain blood cultures, place on normal saline. Assessment and Plan 81-year-old male admitted secondary to acute delirium. Delirium improved with cessation of Percocet. Pain is not controlled off narcotics. Trial of [place] provided today. If this works patient can be discharged once pharmacies reopen. Encephalopathy CT of the brain did not show any acute pathology. The metabolic encephalopathy due to narcotic use and overdose. Pain control initially provided with [place] and let them patch. Tramadol discontinued since it did not work for pain control. Afterwards the patient was started on naproxen after renal function improved and discontinued later. Delirium resolved. Initially, however on the patient seemed to be more lethargic and groggy, therefore fentanyl patch discontinued. 03/28 Patient still lethargic, suspect due to metabolic/toxic encephalopathy due to fentanyl patch and concur UTI. Continue to monitor neurological status. I will order a CT scan of the brain to rule out any other pathology. I will also place nothing by mouth, start IV fluids and order speech therapy evaluation for safety while swallowing Check ABG as well. . Shingles/neuropathic pain Genital and right buttock location. The patient started on oral opiates initially. Trauma will discontinue. Basic neuropathic in origin secondary to zoster infection. Patient's on acyclovir 800 mg by mouth 4 times a day. Patient started on long- acting oxycodone on 03/22 as well as Dilaudid 0.5 mg IV for breakthrough pain. Wound care consulted to provide recommendations on how to treat the patient's open vesicles. Patient with persistent pain despite being on long-acting oxycodone and going up on the dose up to 30 mg by mouth every 12 hours and been on Lortab. He has been getting IV Dilaudid for breakthrough pain. Patient was also started on carbamazepine. 03/26 I will discontinue him acting oxycodone and place the patient on a fentanyl patch. Continue IV Dilaudid for breakthrough pain as well as carbamazepine and Lortab. 03/27 the patient is very lethargic. Suspect secondary to fentanyl patch. I will discontinue fentanyl patch for now. I will consult neurology for any further recommendations regarding pain control of neuropathic pain. Continue carbamazepine and Lortab as well as IV Dilaudid for breakthrough pain. 03/28 Due to encephalopathy I will hold narcotic pain medications as well as carbamazepine and gabapentin. Urinary retention Patient with urinary retention and successful voiding trials. Started on Flomax which will be continued. However the patient had the Major catheter reinserted for persistent urinary retention on 03/23. Will give an extra dose of Flomax prior to removing major catheter. Voiding trials. 03/27 patient seems to be retaining, on exam patient has a distended bladder. I will order postvoid residual bladder scan and if the patient is retaining more than 200 MLS of urine then ordered a Major catheter to be inserted. Then we'll consult urology. 03/28 patient still retaining urine, Major catheter reinserted. I will consult urology. Continue Flomax. Cardiac arrhythmia Coronary artery disease Old myocardial infarction Follow on telemetry Pacemaker is present No events observed on telemetry. Hyperlipidemia No change to baseline treatment Follows in outpatient BPH Acute kidney injury CKDstage III Likely due to prerenal azotemia. Resolved after IV fluid administration. Upon review of records the patient has had some increased creatinine with a baseline of 1.1 since 2016. Likely secondary to chronic kidney disease stage III. 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 The patient seems to be stable as well as osteoarthritis. DVT prophylaxis SCDs Discharge Planning Patient now lethargic. Patient will need to be discharged home with home health PT as per PT recommendations once pain is controlled. Pending neurology relation. Problem Qualifiers (1) Medication side effects: Qualified Codes: T88.7XXA - Unspecified adverse effect of drug or medicament, initial encounter (2) Altered mental status: Qualified Codes: R41.0 - Disorientation, unspecified (3) Shingles: Qualified Codes: B02.9 - Zoster without complications Marlo Blum MD Mar 28, 2017 16:02
--- NOTE | 2017-03-28 16:49 | RADRPT ---
EXAM DATE/TIME: 03/28/2017 16:27 [facility] COMPARISON: CT BRAIN W/O CONTRAST, March 18, 2017, 16:20. INDICATIONS : Altered mental status. Dizziness. RADIATION DOSE: 58.05 CTDIvol (mGy) MEDICAL HISTORY : Cardiovascular disease. SURGICAL HISTORY : Pacemaker. Shunt ENCOUNTER: Initial ACUITY: 1 day PAIN SCALE: 0/10 LOCATION: cranial TECHNIQUE: Multiple contiguous axial images were obtained of the head. Using automated exposure control and adj ustment of the mA and/or kV according to patient size, radiation dose was kept as low as reasonably a chievable to obtain optimal diagnostic quality images. DICOM format image data is available electro nically for review and comparison. FINDINGS: Right frontal ventriculostomy is present. Ventricular size is stable. There is some encephalomalacia around the ventriculostomy tube. The acute intracranial hemorrhage, mass effect or shift. No acute fly [place] abnormality. CONCLUSION: 1. No acute findings. Stable right frontal ventriculostomy tube compared with March 18. Milan Ash MD on March 28, 2017 at 16:43 Board Certified Radiologist. This report was verified electronically.
--- NOTE | 2017-03-28 17:11 | PQ ---
Physician Query Response Document PATIENT: LUIGI MARIA : 1935 ADMIT DATE: 03/24/2017 4:35 PM DISCH DATE: RESPONDING PROVIDER #: [email or web address] QUERY TEXT: Cause and Effect Relationship Please clarify in documentation the relationship, if any, between ___foley cath and__staph aur eus urine culture____ Such as: -- Conditions are due to or associated -- Unrelated to each other -- Other, please specify Based on your medical judgment, can you further clarify whether this term is intended to indicate: UTI Other Specify Unable to determine (please explain) The patient's Clinical Indicators include: RESULTED 03/27 URINE CULTURE CLEAN CATCH STAPHLYCOCCUS AUREUS Urinary Catheter Mar 14, 2017 Indwelling - Single Catheter Present Prior to Admission Yes Catheter Discontinue Date Mar 27, 2017 Query created by: Annelise Haji on 03/28/2017 1:32 PM RESPONSE TEXT: Conditions are likely associated and possibly the UTI is due to Keen catheter Electronically signed by: Marlo Beasley MD 03/28/2017 5:06 PM
[2017-03-28 19:52] VITALS: BP 159/86; PULSE 73; RESP 15; TEMP 99; O2SAT 98
[2017-03-28 20:00] VITALS: BP 166/87; PULSE 81; RESP 20; TEMP 100.2; O2SAT 96; O2SAT 97
[2017-03-28] MEDS: ACETAMINOPHEN/HYDROcodone 325 MG/10 MG TAB PO PRN (21:05)
[2017-03-29] VITALS (8 sets, daily range): BP systolic 112–163; BP diastolic 68–95; PULSE 56–87; RESP 16–20; TEMP 96.7–99.3; O2SAT 94–98
[2017-03-29] MEDS: SODIUM CHLOR 0.9% 1000 ML INJ 1,000 ML IV SCH ×3 (00:18→20:35)
[2017-03-29] MEDS: VANCOMYCIN INJ 1,600 MG in SODIUM CHLORID 0.9% 500 ML INJ 500 ML IV SCH ×2 (00:18→18:10)
[2017-03-29] MEDS: ACETAMINOPHEN/HYDROcodone 325 MG/10 MG TAB PO PRN ×4 (05:36→20:36)
[2017-03-29] MEDS: ACYCLOVIR 800 MG TAB PO SCH ×5 (05:36→20:36)
[2017-03-29] MEDS: SODIUM CHLORIDE 0.9% FLUSH 10 ML FLUSH IV FLUSH SCH ×2 (09:00→20:35)
[2017-03-29 09:48] LABS: AUTOMATED NEUTROPHIL # 11.1 TH/MM3 (1.8-7.7); BASOPHIL # 0.1 TH/MM3 (0-0.2); BASOPHIL % 0.4 % (0.0-2.0); EOSINOPHIL # 0.1 TH/MM3 (0-0.4); HEMATOCRIT 34.6 % (39.0-51.0); LYMPH % 8.4 % (9.0-44.0); LYMPHOCYTE # 1.1 TH/MM3 (1.0-4.8); MEAN CORPUSCULAR HEMOGLOBIN 31.6 PG (27.0-34.0); MEAN CORPUSCULAR HGB CONC 33.3 % (32.0-36.0); NEUT % 85.2 % (16.0-70.0); PLATELET COUNT 192 TH/MM3 (150-450); RED BLOOD COUNT 3.64 MIL/MM3 (4.50-5.90); RED CELL DISTRIBUTION WIDTH 15.1 % (11.6-17.2)
[2017-03-29 09:53] LABS: HEMO FLAGS DIFF FINAL
[2017-03-29 09:55] LABS: CHLORIDE 107 MEQ/L (98-107); POTASSIUM 3.9 MEQ/L (3.5-5.1); SODIUM (NA) 143 MEQ/L (136-145)
[2017-03-29 09:57] LABS: ANION GAP 8 MEQ/L (5-15); BICARBONATE 28.3 MEQ/L (21.0-32.0); BLOOD UREA NITROGEN 16 MG/DL (7-18); MAGNESIUM 2.2 MG/DL (1.5-2.5)
[2017-03-29 10:00] LABS: GLOMERULAR FILTRATION RATE 75 ML/MIN (>89)
[2017-03-29 10:02] LABS: TOTAL BILIRUBIN ADULT 0.3 MG/DL (0.2-1.0)
[2017-03-29 10:03] LABS: ALKALINE PHOSPHATASE 110 U/L (45-117)
[2017-03-29 10:04] LABS: ALT (GPT) 27 U/L (12-78)
[2017-03-29] MEDS: INSULIN ASPART SUPPLEMENTAL SCALE SQ SCH ×4 (10:07→20:37)
[2017-03-29] MEDS: CARVEDILOL 12.5 MG TAB PO SCH ×2 (10:07→20:36)
[2017-03-29] MEDS: FINASTERIDE 5 MG TAB PO SCH (10:07)
[2017-03-29] MEDS: metFORMIN HCL 500 MG TAB PO SCH ×2 (10:08→18:10)
[2017-03-29] MEDS: LISINOPRIL 20 MG TAB PO SCH (10:08)
[2017-03-29] MEDS: CLOPIDOGREL 75 MG TAB PO SCH (10:08)
[2017-03-29] MEDS: TAMSULOSIN HCL 0.4 MG CAP PO SCH (10:08)
[2017-03-29] MEDS: glipiZIDE 5 MG TAB PO SCH (10:08)
[2017-03-29] MEDS: TOPIRAMATE 25 MG TAB PO SCH ×2 (10:08→20:36)
[2017-03-29 10:09] LABS: AST (GOT) 15 U/L (15-37)
[2017-03-29] MEDS: LIDOCAINE HCL 5% PATCH T-DERMAL SCH (10:09)
[2017-03-29] MEDS: ATORVASTATIN 40 MG TAB PO SCH (10:09)
--- NOTE | 2017-03-29 10:39 | MB ---
cc: SANYA EID MD DATE OF CONSULTATION: 03/28/2017 REASON FOR CONSULTATION 1. Urinary retention. 2. History of BPH. HISTORY OF PRESENT ILLNESS The patient is a 81-year-old male who was admitted on 03/28/2017 with altered mental status. At the time he was complaining of general pain related to an acute episode of shingles. Over the course of hospital stay he started voiding in small amounts and bladder scan was done which showed greater than 600. He had intermittent catheterization several times and with large amounts achieved each time. Over the course of the evening he continued to get large amounts with catheterization, was able to urinate so indwelling catheter was placed and urology was consulted. Most of the history is from his as the patient seems to be lethargic and not completely with it. states he does have some issues urinating including nocturia two to three times a night and a weaker stream. She denies any history of hematuria or dysuria or kidney stones or urinary tract infections in the past. She is not sure if he has seen a urologist in the past but she states that he has never had surgery on his prostate or his bladder. Also denies any family history of prostate cancer. Currently in waking the patient up he denies any abdominal pain or flank pain at this time or fevers or chills. He also feels constipated and has not had a bowel movement in several days. PAST MEDICAL HISTORY 1. Osteoarthritis. 2. Depression. 3. Cardiac arrhythmia. 4. Coronary artery disease. 5. Hyperlipidemia. 6. Back pain. 7. BPH. 8. Sleep apnea. 9. History of migraines. 10. Diabetes type II. PAST SURGICAL HISTORY Pacemaker placement in the past, coronary stents. MEDICATIONS Home medications include: 1. Valtrex. 2. Carvedilol. 3. Plavix. 4. Carbamazepine. 5. Albuterol. 6. Gabapentin. 7. Lisinopril. 8. Glipizide. 9. Topamax. 10. Finasteride. 11. Glucophage. ALLERGIES MORPHINE. FAMILY HISTORY Denies urolithiasis, genitourinary malignancy. SOCIAL HISTORY Denies smoking, alcohol or illicit drugs. He is . REVIEW OF SYSTEMS See HPI, otherwise all systems reviewed otherwise are negative. PHYSICAL EXAMINATION VITAL SIGNS: Temperature 96.7, pulse 60, respirations 16, BP 112/68, sating 96% on room air. GENERAL: He is arousable but lethargic. Does not appear in any acute distress, appears older than his stated age. HEAD: Normocephalic, atraumatic. SKIN: No ulcers or rashes, pink and moist. EYES: No scleral icterus. Extraocular muscles intact. NECK: No JVD, supple. Trachea is midline. LUNGS: Clear to auscultation bilaterally. No wheezes, rales or rhonchi. HEART: Regular rhythm. No murmurs, gallops or rubs. ABDOMEN: Soft but obese, nontender, slightly tympanic and distended. GENITOURINARY: No CVA tenderness bilaterally. His penis is circumcised. Testes descended bilaterally, normal size and consistency. RECTAL EXAM: Not indicated at this time. EXTREMITIES: Nontender. No clubbing, cyanosis or edema. PSYCHE: Flat affect. NEUROLOGIC: Cranial II-XII intact. Strength 4/5 in all four extremities. LABORATORY DATA White count 12.0, hemoglobin 11.6, hematocrit 35.2, platelet count 210. Sodium 139, potassium 4.0, chloride 103, bicarb 38.9, BUN 22, creatinine 1.10, glucose 202. Urine was moderate blood with 15-19 red blood cells. Urine culture grew staph aureus. IMAGING STUDIES No relevant imaging. ASSESSMENT The patient is a 81-year-old male with history of BPH, admitted with altered mental status with acute outbreak of shingles, presents with acute urinary retention. PLAN Recommend continuing indwelling Keen catheter. Will start the patient on Flomax 0.4 mg daily and he can then be void trial as an outpatient and continue antibiotics for treatment of UTI. Thank you for this consult. Sanya Eid MD EMSonja/DENG /9:52 AM /10:00 AM
[2017-03-29] MEDS: SENNOSIDES SYRUP 8.8 MG/5 ML CUP PO SCH ×2 (11:59→20:36)
--- NOTE | 2017-03-29 12:27 | RADRPT ---
EXAM DATE/TIME: 03/29/2017 11:29 [facility] COMPARISON: MRI BRAIN W & W/O CONTRAST, August 02, 2016, 15:04. INDICATIONS : Seizures. MEDICAL HISTORY : Hypertension. Diabetes mellitus type 2. Seizures. SURGICAL HISTORY : Pacemaker. Coronary artery stent. Shunt in brain. ENCOUNTER: Initial ACUITY: 2 day PAIN SCORE: 0/10 LOCATION: head TECHNIQUE: Multiplanar, multisequence MRI of the brain was performed without contrast. FINDINGS: CEREBRUM: The ventricles are normal for age. Shunt is in place. Moderate periventricular white matter changes are evident along shunt track adjacent to the lateral ventricles. No evidence of midline shift, mas s lesion, hemorrhage or acute infarction. No extraaxial fluid collections are seen. The pituitary g land and suprasellar cistern are normal in configuration. . POSTERIOR FOSSA: Focal high signal is seen in the brainstem midline adjacent to the cerebral aqueduct stable in the in terval. Fourth ventricle is appropriate. EXTRACRANIAL: The visualized portions of the orbits and paranasal sinuses are unremarkable. CONCLUSION: Stable MRI of the brain. There is strong clinical concern for inflammatory or neoplastic process MRI with contrast is suggested. Previous contrasted study 08/02/2016 showed no evidence for mass. Dm Coley MD FACR on March 29, 2017 at 12:18 Board Certified Radiologist. This report was verified electronically.
[2017-03-29] MEDS ORDERED: REMOVE OLD DURAGESIC (FENTANYL) PATCH T-DERMAL SCH (15:00)
--- NOTE | 2017-03-29 15:24 | HHI.PR ---
Subjective Remarks Patient seen in follow up for AMS/encephalopathy, etiology unclear. Medication v. infection causes being ruled out Empiric vanco/ceftriaxone started yesterday fever 100.8 yesterday leukocytes trended up discussed with patient and spouse Objective Vitals Vital Signs Date Time Temp Pulse Resp B/P (MAP) Pulse Ox O2 Delivery O2 Flow Rate FiO2 03/29/17 13:37 97.8 56 17 126/72 (90) 97 03/29/17 11:51 18 03/29/17 08:48 96.7 68 16 112/68 (83) 96 03/29/17 08:00 94 Nasal Cannula 2.00 03/29/17 04:00 99.3 87 20 155/81 (105) 94 03/29/17 00:00 97.3 79 20 142/84 (103) 96 03/28/17 20:00 100.2 81 20 166/87 (113) 97 03/28/17 20:00 96 Nasal Cannula 2.00 03/28/17 19:52 99.0 73 15 159/86 (110) 98 I/O 03/28/17 03/28/17 03/28/17 03/29/17 03/29/17 03/29/17 07:00 15:00 23:00 07:00 15:00 23:00 Intake Total 100 ml 440 ml 0 ml 1000 ml Output Total 2100 ml 1000 ml 2700 ml Balance -2100 ml 100 ml -560 ml -2700 ml 1000 ml Intake Oral 100 ml 440 ml 0 ml IV Total 1000 ml Output Urine Total 2100 ml 1000 ml 2700 ml Result Diagram: 03/29/17 0910 03/29/17 0910 Imaging Last Impressions Brain MRI 03/29/17 0000 Signed Impressions: Service Date/Time: Wednesday, March 29, 2017 11:29 - CONCLUSION: Stable MRI of the brain. There is strong clinical concern for inflammatory or neoplastic process MRI with contrast is suggested. Previous contrasted study 08/02/2016 showed no evidence for mass. Dm Coley MD FACR Head CT 03/28/17 0000 Signed Impressions: Service Date/Time: Tuesday, March 28, 2017 16:27 - CONCLUSION: 1. No acute findings. Stable right frontal ventriculostomy tube compared with March 18. Milan Ash MD Objective Remarks GENERAL: This is a well-nourished, well-developed patient, in no apparent distress. CARDIOVASCULAR: Regular rate and rhythm without murmurs, gallops, or rubs. RESPIRATORY: Clear to auscultation. Breath sounds equal bilaterally. No wheezes , rales, or rhonchi. GASTROINTESTINAL: Abdomen soft, non-tender, nondistended. Normal active bowel sounds MUSCULOSKELETAL: Extremities without clubbing, cyanosis, or edema. NEURO:calm awake Procedures None A/P Problem List: (1) Metabolic encephalopathy ICD Code: G93.41 - Metabolic encephalopathy Plan: improved likely multifactorial follow up MRI looks about the same as prior MRI this year Neuro (sees Dr Cabral) /ID eval pending hold narcotics (2) Urinary retention ICD Code: R33.9 - Retention of urine, unspecified Plan: catheter/flomax Discharge Planning [facility] So Black MD Mar 29, 2017 15:24
--- NOTE | 2017-03-29 17:19 | MG ---
cc: PALOMO BERGERON M.D. Lab No: Date: 03/29/2017 Age: Sex: M Race: REQUESTING PHYSICIAN Dr. Doan. INTRODUCTION An EEG was obtained on this 81-year-old patient being lethargic. DESCRIPTION The EEG shows a lot of generalized slowing that seems to correlate at least in part with sleep. There are theta and delta rhythms. There is beta activity. Occasionally there is some brief awakening in the background that is reactive and there is limited amount of alpha activity. Photic stimulation showed no change. INTERPRETATION Abnormal EEG because of a moderately severe diffuse slowing consistent with a diffuse disturbance of cerebral function. No epileptiform features are present. Palomo Bergeron MD OFC/KK /4:56 PM /5:04 PM
--- NOTE | 2017-03-29 18:39 | PD.CONS ---
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 HE WAS CONFUSED ON ADMISSION. FOUND TO HAVE SHINGLES OUT BREAK AND WAS STARTED ON ANTIVIRALS. HE HAD A BAD RASH AND HAS BEEN SEEN BY WOUND CARE. HE HAD BEEN IMPROVING HOWEVER HE STARTED TO RUN LOW GRADE FEVERS THE LAST 24-48HR AND ID IS CONSULTED. HE HAD A POSITIVE UA MSSA ON 03/27. HE IS ON VANCOMYCIN. HE DENIES ANY DYSURIA AND IS MOSTLY TALKING ABOUT PAIN FROM HIS SHINGLES OUT BREAK. THE RASH IS HEALING HOWEVER HE STILL GETS VERY SHARP PAIN ACUTELY. Review of Systems Constitutional: COMPLAINS OF: Fever Integumentary: COMPLAINS OF: Rash (FROM HIS SACRAL AREA TO HIS SCROTUM BUT IS DRY AND PEELING ) Hematologic/lymphatic: DENIES: Bruising Immunologic/allergic: DENIES: Urticaria Neurologic: COMPLAINS OF: Localized weakness Psychiatric: DENIES: Depression Past Family Social History Allergies: Coded Allergies: morphine (Unverified Allergy, Severe, "doctor stated i was unconscious and shaking", 03/17/17) ?SEIZURE Past Medical History Past Family Social History Past Medical History Osteoarthritis Depression Cardiac arrhythmia Coronary artery disease Old myocardial infarction Hyperlipidemia Back pain BPH Sleep apnea History of migraine headaches Diabetes mellitus type 2 Past Surgical History Past Surgical History Pacemaker placement in 2016 Coronary stents Lithotripsy Reported Medications Reported Medications Reported Meds & Active Scripts Active Valtrex (Valacyclovir HCl) 1,000 Mg Tab 1,000 Mg PO TID 7 Days Mapap Extra Strength (Acetaminophen) 500 Mg Tab 1,000 Mg PO Q8HR PRN Carvedilol 12.5 Mg Tab 12.5 Mg PO BID Plavix (Clopidogrel Bisulfate) 75 Mg Tab 75 Mg PO DAILY Carbamazepine 200 Mg Tab 200 Mg PO BID Albuterol Neb (Albuterol Sulfate) 2.5 Mg/3 Ml Neb 2.5 Mg NEB Q4HR NEB While awake Reported Senexon Liq (Sennosides) 8.8 Mg/5 Ml Liq 2 Tab PO BID Gabapentin 100 Mg Cap 200 Mg PO TID Percocet (Oxycodone-Acetaminophen) 5-325 mg Tab 1 Tab PO Q6H PRN Lisinopril 40 Mg Tab 40 Mg PO DAILY Glipizide 5 Mg Tab 5 Mg PO DAILY Take 30 minutes before a meal Donepezil 5 Mg Tab 5 Mg PO HS Nateglinide 60 Mg Tab 60 Mg PO TIDAC Topiramate 25 Mg Tab 25 Mg PO BID Januvia (Sitagliptin Phosphate) 100 Mg Tab 100 Mg PO DAILY Finasteride 5 Mg Tab 5 Mg PO DAILY Do not crush. Crestor (Rosuvastatin Calcium) 40 Mg Tab 40 Mg PO DAILY Glucophage (Metformin HCl) 500 Mg Tab 500 Mg PO BIDPC With meals Amlodipine (Amlodipine Besylate) 5 Mg Tab 10 Mg PO DAILY Family History Family History Patient unable to provide his family history given he is a poor historian Social History Social History No smoking No alcohol abuse No illicit drug abuse Physical Exam Vital Signs Vital Signs Date Time Temp Pulse Resp B/P (MAP) Pulse Ox O2 Delivery O2 Flow Rate FiO2 03/29/17 17:20 18 03/29/17 16:53 97.7 78 16 157/91 (113) 98 03/29/17 13:37 97.8 56 17 126/72 (90) 97 03/29/17 08:48 96.7 68 16 112/68 (83) 96 03/29/17 08:00 94 Nasal Cannula 2.00 03/29/17 04:00 99.3 87 20 155/81 (105) 94 03/29/17 00:00 97.3 79 20 142/84 (103) 96 03/28/17 20:00 100.2 81 20 166/87 (113) 97 03/28/17 20:00 96 Nasal Cannula 2.00 03/28/17 19:52 99.0 73 15 159/86 (110) 98 Physical Exam GENERAL: This is a well-nourished, well-developed patient, in no apparent distress. SKIN: He has a healing rash from sacral to scrotum dry flaky and peeling no open wounds, no ecchymoses or lesions. Cool and dry. HEAD: Atraumatic. Normocephalic. No temporal or scalp tenderness. EYES: Pupils equal round and reactive. Extraocular motions intact. No scleral icterus. No injection or drainage. NECK: Trachea midline. No JVD or lymphadenopathy. Supple, nontender, no meningeal signs. CARDIOVASCULAR: Regular rate and rhythm without murmurs, gallops, or rubs. RESPIRATORY: Clear to auscultation. Breath sounds equal bilaterally. No wheezes , rales, or rhonchi. GASTROINTESTINAL: Abdomen soft, non-tender, nondistended. No hepato-splenomegaly , or palpable masses. No guarding. MUSCULOSKELETAL: Extremities without clubbing, cyanosis, or edema. No joint tenderness, effusion, or edema noted. No calf tenderness. Negative Homans sign bilaterally. NEUROLOGICAL: Awake and alert. Cranial nerves II through XII intact. Motor and sensory grossly within normal limits. Four out of 5 muscle strength in all muscle groups. Normal speech. Laboratory Laboratory Tests Test 03/29/17 09:10 White Blood Count 13.0 Red Blood Count 3.64 Hemoglobin 11.5 Hematocrit 34.6 Mean Corpuscular Volume 95.0 Mean Corpuscular Hemoglobin 31.6 Mean Corpuscular Hemoglobin Concent 33.3 Red Cell Distribution Width 15.1 Platelet Count 192 Mean Platelet Volume 8.3 Neutrophils (%) (Auto) 85.2 Lymphocytes (%) (Auto) 8.4 Monocytes (%) (Auto) 5.0 Eosinophils (%) (Auto) 1.0 Basophils (%) (Auto) 0.4 Neutrophils # (Auto) 11.1 Lymphocytes # (Auto) 1.1 Monocytes # (Auto) 0.6 Eosinophils # (Auto) 0.1 Basophils # (Auto) 0.1 CBC Comment DIFF FINAL Differential Comment Blood Urea Nitrogen 16 Creatinine 0.97 Random Glucose 169 Total Protein 6.1 Albumin 2.6 Calcium Level 8.1 Phosphorus Level 2.2 Magnesium Level 2.2 Alkaline Phosphatase 110 Aspartate Amino Transf (AST/SGOT) 15 Alanine Aminotransferase (ALT/SGPT) 27 Total Bilirubin 0.3 Sodium Level 143 Potassium Level 3.9 Chloride Level 107 Carbon Dioxide Level 28.3 Anion Gap 8 Estimat Glomerular Filtration Rate 75 Date/Time Source Procedure Growth Status 03/28/17 17:25 Blood Peripheral Aerobic Blood Culture - Preliminary NO GROWTH IN 1 DAY Resulted 03/28/17 17:25 Blood Peripheral Anaerobic Blood Culture - Preliminary NO GROWTH IN 1 DAY Resulted 03/27/17 02:00 Urine Clean Catch Urine Culture - Final Staphylococcus Aureus Complete Result Diagram: 03/29/17 0910 03/29/17 0910 Assessment and Plan Problem List: (1) UTI (urinary tract infection) ICD Codes: N39.0 - Urinary tract infection, site not specified Plan: PT WITH STAPH AUREUS IN THE URINE ITS MSSA STOP VANCOMYCIN AND START ANCEF WILL REPEAT UAC WILL MONITOR AND FU BC NEGATIVE (2) Fever ICD Codes: R50.9 - Fever, unspecified Status: Resolved (3) Sciatic nerve pain ICD Codes: M54.30 - Sciatica, unspecified side Status: Acute (4) Nutrition, metabolism, and development symptoms ICD Codes: R63.8 - Other symptoms and signs concerning food and fluid intake Status: Acute (5) Congestive heart failure ICD Codes: I50.9 - Heart failure, unspecified Status: Acute Problem Qualifiers (1) UTI (urinary tract infection): (2) Fever: Vidhya Olivo Mar 29, 2017 18:39
[2017-03-29] MEDS: ceFAZolin 1,000 MG/NS 100 ML IV SCH ×2 (20:35)
[2017-03-30] VITALS: BP 134/79; PULSE 63; RESP 20; TEMP 97.2; O2SAT 95
[2017-03-30] MEDS: SODIUM CHLOR 0.9% 1000 ML INJ 1,000 ML IV SCH ×2 (04:44→17:00)
[2017-03-30] MEDS: ACYCLOVIR 800 MG TAB PO SCH ×5 (04:45→21:03)
[2017-03-30] MEDS: ceFAZolin 1,000 MG/NS 100 ML IV SCH ×6 (04:45→20:00)
[2017-03-30 08:00] VITALS: BP 150/94; PULSE 67; RESP 20; TEMP 98.1; O2SAT 96; O2SAT 97
[2017-03-30] MEDS: INSULIN ASPART SUPPLEMENTAL SCALE SQ SCH ×4 (08:00→21:00)
--- NOTE | 2017-03-30 08:39 | MB ---
cc: NARA ROUSE MD DATE OF CONSULTATION 03/29/17 REASON FOR CONSULTATION (Neuropathic pain/tremors of the upper extremity). HISTORY OF PRESENT ILLNESS Mr. Yousif is a 81-year-old male who presented to the [facility] on March 18, 2017 because of being lethargic with altered mental status. Around that time was diagnosed with genital singles and he was on high doses of narcotics for his pain. Head CT scan did not show any evidence of an acute pathology. Neurology is consulted because of the pain. The patient complains of hand tremor in both hands. The patient denies headache, double vision, blurred vision, slurred speech, weakness, specific weakness of an extremity or seizures. There is no family history of convulsions. The patient states that a shunt was placed in his head because of his chronic headache, unaware of other what could have caused that. REVIEW OF SYSTEMS 12-point review of systems was negative except for what is stated in the HPI. PAST MEDICAL HISTORY Cardiac arrhythmia, coronary artery disease, remote VA, hyperlipidemia, chronic back pain, benign prostatic hypertrophy, sleep apnea, migraine headaches, arthritis. PAST SURGICAL HISTORY Pacemaker 2016, coronary stent. Lithotripsy, right ventriculoperitoneal shunt. On review of the medical records revealed that he was seen 2014 by neurology several times for headache but there is no documentation about the FAIRGROUND OPERATOR shunt. MEDICATIONS 1. Gabapentin. 2. Percocet. 3. Lisinopril. 4. Glipizide. 5. Donepezil. 6. Nateglinide. 7. Topiramite. 8. Januvia. 9. Finasteride. 10. Crestor. 11. Glucophage. 12. Amlodipine. ALLERGIES MORPHINE. FAMILY HISTORY Noncontributory SOCIAL HISTORY No smoking. No alcohol. No illicit drug abuse. PHYSICAL EXAMINATION GENERAL: Sits on a chair, awake, good historian, not in apparent distress. HEENT: Atraumatic, right FAIRGROUND OPERATOR shunt is visible through the cranium. No signs of meningeal irritation. NECK: Supple neck. No carotid bruit. CARDIOVASCULAR: Regular rate and rhythm. EYES/EARS: intact hearing. Intact vision. RESPIRATORY: Clear to auscultation. No wheezes. GASTROINTESTINAL: Soft, nontender. MUSCULOSKELETAL: Moves extremities. No cyanosis. No edema. NEURO: Awake, alert, oriented to person, place, but had some delay in time 2019 and then 2016, unaware of the weekday. He knows it is March. Intact repetition. Intact reading. Intact judgment. Intact comprehension. No dysarthria. No dysphasia. Cranial nerves II-XII are grossly intact. Motor system examination upper and lower extremity was grossly intact with intact normal sensation. There was no visible hand tremor. Lower extremity weak with limited exam due to pain. Reflexes 1+ bilateral symmetrical. Plantars are bilaterally downgoing. [id number] examination is intact. PSYCHIATRY: Normal mood and behavior. No hallucinations. DIAGNOSTIC STUDIES LABORATORY DATA White blood cells 13, hemoglobin 11.5, MCV 95, sodium 143, potassium 3.9, BUN 16 , creatinine 0.97, random glucose 168, calcium 8.1, phosphorus 2.2, total protein 6.1. Urine tox negative. Ethyl alcohol less than 5. DIAGNOSTIC IMAGING - Head CT scan on 03/18/2017 stable appearance of the brain. Right frontal ventriculostomy is noted with tip overlying frontal horn, right lateral ventricle. Gliosis is present along the ventriculostomy tract. There is hypodensity asymmetric to the left in the tectum. There is no evidence o intracranial hemorrhage. Findings suggest acute infarction. Cranial structures are stable and benign. - CT brain on 03/28 no acute finding. Stable right frontal ventriculostomy tube compared to the previous CT scan. Brain MRI 03/29/17 brain MRI without contrast revealed stable MRI of the brain but there is strong clinical concern for inflammatory or neoplastic process and MRI with contrast is suggested. - EEG was abnormal because of moderate severe diffuse slowing consistent with diffuse disturbance of cerebral function. No epileptiform features are present. DIAGNOSTIC IMPRESSION 1. Encephalopathy, resolving Possible etiology infectious/metabolic/polypharmacy narcotics and Tegretol. 2. Genital shingles. 3. History of FAIRGROUND OPERATOR shunt placement. 4. Rule out possible shunt stump infection. 5. Chronic headache. PLAN 1. Neuro checks q. four hourly. 2. MRI brain with and without contrast as per the radiology recommendation for an unclear lesion in the brain. 3. EEG. 4. Obtain Tegretol level. 5. Continue Tegretol. 6. PT/OT recommendations are appreciated. 7. Continue supportive medical therapy. 8. Fall precautions. 9. DVT prophylaxis. Thank you for the ability to participate in the care of your patient. MD TANMAY Fuller /9:38 PM /8:24 AM KRISTYN
[2017-03-30] MEDS: FINASTERIDE 5 MG TAB PO SCH (09:00)
[2017-03-30] MEDS: SODIUM CHLORIDE 0.9% FLUSH 10 ML FLUSH IV FLUSH SCH ×2 (09:33→21:03)
[2017-03-30] MEDS: ACETAMINOPHEN/HYDROcodone 325 MG/10 MG TAB PO PRN ×3 (09:33→23:06)
[2017-03-30] MEDS: CARVEDILOL 12.5 MG TAB PO SCH ×2 (09:34→21:03)
[2017-03-30] MEDS: LISINOPRIL 20 MG TAB PO SCH (09:34)
[2017-03-30] MEDS: TOPIRAMATE 25 MG TAB PO SCH ×2 (09:34→21:03)
[2017-03-30] MEDS: TAMSULOSIN HCL 0.4 MG CAP PO SCH (09:34)
[2017-03-30] MEDS: LIDOCAINE HCL 5% PATCH T-DERMAL SCH (09:35)
[2017-03-30] MEDS: CLOPIDOGREL 75 MG TAB PO SCH (09:35)
[2017-03-30] MEDS: ATORVASTATIN 40 MG TAB PO SCH (09:35)
[2017-03-30] MEDS: metFORMIN HCL 500 MG TAB PO SCH ×2 (09:35→17:54)
[2017-03-30] MEDS: glipiZIDE 5 MG TAB PO SCH (09:35)
[2017-03-30] MEDS: SENNOSIDES SYRUP 8.8 MG/5 ML CUP PO SCH ×2 (09:35→21:00)
[2017-03-30] MEDS: HYDROmorphone HCL PF 1 MG/ML VIAL IV PUSH PRN ×3 (10:37→21:14)
--- NOTE | 2017-03-30 12:56 | HHI.PR ---
Subjective Remarks Patient seen today in follow-up for encephalopathy. Mental status appears improved again today. Patient complaining of groin pain around his zoster scars. Objective Vitals Vital Signs Date Time Temp Pulse Resp B/P (MAP) Pulse Ox O2 Delivery O2 Flow Rate FiO2 03/30/17 11:16 18 03/30/17 10:40 18 03/30/17 08:00 96 Nasal Cannula 1.50 03/30/17 08:00 98.1 67 20 150/94 (112) 97 03/30/17 00:00 97.2 63 20 134/79 (97) 95 03/29/17 20:00 98.2 75 20 163/95 (117) 97 03/29/17 19:25 95 Nasal Cannula 2.00 03/29/17 16:53 97.7 78 16 157/91 (113) 98 03/29/17 13:37 97.8 56 17 126/72 (90) 97 I/O 03/29/17 03/29/17 03/29/17 03/30/17 03/30/17 03/30/17 07:00 15:00 23:00 07:00 15:00 23:00 Intake Total 0 ml 1000 ml 764 ml 1522 ml Output Total 2700 ml 2000 ml 2250 ml Balance -2700 ml 1000 ml -1236 ml -728 ml Intake Oral 0 ml 480 ml IV Total 1000 ml 764 ml 1042 ml Output Urine Total 2700 ml 2000 ml 2250 ml # Bowel Movements 1 Result Diagram: 03/29/17 0910 03/29/17 0910 Objective Remarks Old zoster scars around the scrotum and into the buttocks GENERAL: This is a well-nourished, well-developed patient, in no apparent distress. CARDIOVASCULAR: Regular rate and rhythm without murmurs, gallops, or rubs. RESPIRATORY: Clear to auscultation. Breath sounds equal bilaterally. No wheezes , rales, or rhonchi. GASTROINTESTINAL: Abdomen soft, non-tender, nondistended. Normal active bowel sounds MUSCULOSKELETAL: Extremities without clubbing, cyanosis, or edema. NEURO:calm awake, alert and oriented 3 Procedures None A/P Problem List: (1) Metabolic encephalopathy ICD Code: G93.41 - Metabolic encephalopathy Plan: Resolving likely multifactorial follow up MRI looks about the same as prior MRI this year but this is without contrast and we will follow-up repeat with contrast Neuro consult appreciated hold narcotics (2) Urinary retention ICD Code: R33.9 - Retention of urine, unspecified Plan: catheter/flomax (3) Shingles ICD Code: B02.9 - Zoster without complications Plan: Patient on acyclovir, add diclofenac and avoid narcotics Discharge Planning [facility] eval Problem Qualifiers (1) Shingles: Qualified Codes: B02.9 - Zoster without complications So Carrillo MD Mar 30, 2017 12:56
[2017-03-30] MEDS: DICLOFENAC SODIUM 50 MG DELAYED RELEASE TAB PO SCH ×2 (14:00→21:03)
[2017-03-30] MEDS ORDERED: GADODIAMIDE PF 287 MG/ML 20 ML VIAL (for RAD MRI) IVCONTRAST ONE (14:13)
[2017-03-30] MEDS: GABAPENTIN 300 MG CAP PO SCH ×2 (14:39→21:03)
[2017-03-30 16:00] VITALS: BP 149/79; PULSE 104; RESP 16; TEMP 97.6; O2SAT 96
--- NOTE | 2017-03-30 16:35 | RADRPT ---
EXAM DATE/TIME: 03/30/2017 13:54 [facility] COMPARISON: No previous studies available for comparison. INDICATIONS : Encephalitis. Seizures and headache. CONTRAST: 18 cc Omniscan (gadodiamide) IV MEDICAL HISTORY : Hypertension. Renal insufficiency. Myocardial infarction. Coronary artery disease, stroke and seizure s. SURGICAL HISTORY : Pacemaker. Coronary artery stent. Shunt and screws in left arm. ENCOUNTER: Subsequent ACUITY: 4-6 days PAIN SCORE: 6/10 LOCATION: Head. TECHNIQUE: Multiplanar, multisequence MRI of the brain was performed both prior to and following the administrat ion of paramagnetic contrast. FINDINGS: Comparison is August 02. Right-sided shunt is present. There is some encephalomalacia around the golden nt and white matter ischemic changes that are relatively stable. There is abnormal signal in the post erior brain stem predominantly around the tectum, also stable. This does not enhance postcontrast. No enhancing lesions are seen in the brain or brain stem post contrast. Posterior fossa is stable in ap pearance. Focal encephalomalacia left cerebellar hemisphere is stable. CONCLUSION: 1. Essentially stable MRI of brain since August 02. 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 No abnormal enhancing lesions. Right frontal shunt stable. Stable ventricular size. No acute infarct. Milan Ash MD on March 30, 2017 at 16:25 Board Certified Radiologist. This report was verified electronically.
[2017-03-30 20:00] VITALS: BP 152/82; PULSE 68; RESP 16; TEMP 98.4; O2SAT 95
[2017-03-30 21:57] VITALS: O2SAT 96
[2017-03-31] VITALS: BP 176/92; PULSE 79; RESP 24; TEMP 98.2; O2SAT 97
[2017-03-31] MEDS: ceFAZolin 1,000 MG/NS 100 ML IV SCH ×2 (04:00)
[2017-03-31] MEDS: ACETAMINOPHEN/HYDROcodone 325 MG/10 MG TAB PO PRN (04:18)
[2017-03-31] MEDS ORDERED: PHARMACY ORDERED LAB ONE (05:45)
[2017-03-31 06:00] VITALS: BP 133/83; PULSE 60; RESP 20; TEMP 97.5; O2SAT 100
[2017-03-31] MEDS: ACYCLOVIR 800 MG TAB PO SCH ×3 (06:00→09:38)
[2017-03-31 06:21] LABS: BLOOD, URINE TRACE (NEG); GLUCOSE,URINE NEG (NEG); KETONE, URINE NEG (NEG); NITRITE,URINE NEG (NEG)
[2017-03-31 06:23] LABS: URINE COLOR STRAW (YELLW/STRAW)
[2017-03-31 06:25] LABS: RBC, URINE 0-2 /hpf (0-3)
[2017-03-31 06:26] LABS: COMMENT (UR) CULT NOT INDICATED; CULTURE IF INDICATED CULT NOT INDICATED; SQUAMOUS EPITHELIAL CELL URINE 0-5 /hpf (0-5)
[2017-03-31 08:00] VITALS: BP 175/94; PULSE 59; RESP 18; TEMP 95.1; O2SAT 95; O2SAT 98
[2017-03-31] MEDS: INSULIN ASPART SUPPLEMENTAL SCALE SQ SCH ×2 (08:00→12:00)
[2017-03-31] MEDS: TAMSULOSIN HCL 0.4 MG CAP PO SCH (09:22)
[2017-03-31] MEDS: FINASTERIDE 5 MG TAB PO SCH (09:22)
[2017-03-31] MEDS: metFORMIN HCL 500 MG TAB PO SCH (09:22)
[2017-03-31] MEDS: glipiZIDE 5 MG TAB PO SCH (09:22)
[2017-03-31] MEDS: CARVEDILOL 12.5 MG TAB PO SCH (09:22)
[2017-03-31] MEDS: ATORVASTATIN 40 MG TAB PO SCH (09:22)
[2017-03-31] MEDS: DICLOFENAC SODIUM 50 MG DELAYED RELEASE TAB PO SCH (09:23)
[2017-03-31] MEDS: SENNOSIDES SYRUP 8.8 MG/5 ML CUP PO SCH (09:23)
[2017-03-31] MEDS: LISINOPRIL 20 MG TAB PO SCH (09:23)
[2017-03-31] MEDS: GABAPENTIN 300 MG CAP PO SCH (09:23)
[2017-03-31] MEDS: TOPIRAMATE 25 MG TAB PO SCH ×2 (09:31→09:38)
[2017-03-31] MEDS: SODIUM CHLORIDE 0.9% FLUSH 10 ML FLUSH IV FLUSH SCH (09:31)
[2017-03-31] MEDS: LIDOCAINE HCL 5% PATCH T-DERMAL SCH (09:32)
[2017-03-31] MEDS: CLOPIDOGREL 75 MG TAB PO SCH (09:38)
--- NOTE | 2017-03-31 10:48 | HHI.PR ---
Subjective Remarks Patient seen today in follow-up for encephalopathy which appears to be improving. Patient's pain is better controlled. Patient would like to evaluate for rehabilitation placement. Plan discussed with patient, case management and the patient's brother. MRI stable Objective Vitals Vital Signs Date Time Temp Pulse Resp B/P (MAP) Pulse Ox O2 Delivery O2 Flow Rate FiO2 03/31/17 08:00 98 Nasal Cannula 2.00 03/31/17 08:00 95.1 59 18 175/94 (121) 95 03/31/17 06:00 97.5 60 20 133/83 (100) 100 03/31/17 00:00 98.2 79 24 176/92 (120) 97 03/30/17 21:57 96 Nasal Cannula 1.50 03/30/17 20:00 98.4 68 16 152/82 (105) 95 03/30/17 19:01 18 03/30/17 16:00 97.6 104 16 149/79 (102) 96 03/30/17 15:58 18 I/O 03/30/17 03/30/17 03/30/17 03/31/17 03/31/17 03/31/17 07:00 15:00 23:00 07:00 15:00 23:00 Intake Total 1522 ml 1970 ml 220 ml Output Total 2250 ml 1000 ml 350 ml Balance -728 ml 970 ml -130 ml Intake Oral 480 ml 730 ml 220 ml Oral Supplement 240 ml IV Total 1042 ml 1000 ml Output Urine Total 2250 ml 1000 ml 350 ml Bladder Scan Volume Amount 632 ml # Bowel Movements 0 0 Result Diagram: 03/29/1710 03/29/1710 Imaging Last Impressions Brain MRI 03/30/17 0000 Signed Impressions: Service Date/Time: March 13:54 - CONCLUSION: 1. Essentially stable MRI of brain since August 02. 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 No abnormal enhancing lesions. Right frontal shunt stable. Stable ventricular size. No acute infarct. Milan Ash MD Head CT 03/28/17 0000 Signed Impressions: Service Date/Time: Tuesday, March 28, 2017 16:27 - CONCLUSION: 1. No acute findings. Stable right frontal ventriculostomy tube compared with March 18. Milan Ash MD Objective Remarks Old zoster scars around the scrotum and into the buttocks GENERAL: This is a well-nourished, well-developed patient, in no apparent distress. CARDIOVASCULAR: Regular rate and rhythm without murmurs, gallops, or rubs. RESPIRATORY: Clear to auscultation. Breath sounds equal bilaterally. No wheezes , rales, or rhonchi. GASTROINTESTINAL: Abdomen soft, non-tender, nondistended. Normal active bowel sounds MUSCULOSKELETAL: Extremities without clubbing, cyanosis, or edema. NEURO:calm awake, alert and oriented 3 Procedures None A/P Problem List: (1) Metabolic encephalopathy ICD Code: G93.41 - Metabolic encephalopathy Plan: Resolving likely multifactorial follow up MRI looks about the same as prior MRI this year but this is without contrast and we will follow-up repeat with contrast Neuro consult appreciated hold narcotics (2) Urinary retention ICD Code: R33.9 - Retention of urine, unspecified Plan: catheter/flomax/finasteride (3) Shingles ICD Code: B02.9 - Zoster without complications Plan: Patient on acyclovir, pain improved with diclofenac and avoid narcotics due to encephalopathy (4) HTN (hypertension) ICD Code: I10 - Hypertension Status: Chronic Plan: uncontrolled titrate norvasc, coreg, (5) Seizure disorder ICD Code: G40.909 - Seizure disorder Status: Chronic Plan: cont AED neurontin and topamax (6) UTI (urinary tract infection) ICD Code: N39.0 - Urinary tract infection, site not specified Plan: MSSA, Ancef (7) DM2 (diabetes mellitus, type 2) ICD Code: E11.9 - Type 2 diabetes mellitus without complications Plan: metformin, glipizide Januvia, SSi ADA diet Discharge Planning rehab eval Problem Qualifiers (1) Shingles: Qualified Codes: B02.9 - Zoster without complications (2) UTI (urinary tract infection): So Carrillo MD Mar 31, 2017 10:48
[2017-03-31 12:00] VITALS: BP 152/78; PULSE 58; RESP 18; TEMP 96.1; O2SAT 96
--- NOTE | 2017-03-31 12:17 | HHI.FF ---
Face to Face Verification Diagnosis: (1) Anxiety (2) Diabetes mellitus type 2, insulin dependent (3) HTN (hypertension) (4) Seizure disorder Physical Therapy Order: Evaluate and Treat, Improve ambulation, Strength and gait training Speech Therapy Order: To Improve: Speech and communication skills, Cognitive skills Home Health Nursing Order: Medical education Medication education-adverse effect Surgical Aide Order: To Evaluate: Living conditions/environment Order: To Provide: Long range planning I have seen patient Sheri Yousif on 03/31/17. My clinical findings support the need for the requested home health care services because: Ltd mobility - disease progression Impaired cognition/judgement High risk of falls I certify that my clinical findings support that this patient is homebound because: Unsteady gait/balance So Carrillo MD Mar 31, 2017 12:17
[2017-03-31] MEDS ORDERED: DICL50TA3 PO (12:21)
[2017-03-31] MEDS ORDERED: ACYC800T PO (12:21)
--- NOTE | 2017-03-31 12:23 | HHI.IDPN ---
Subjective Subjective Remarks Doing better No fever for 48 hrs Pain controlled Antibiotics Cefazolin Lines Peripheral IV line Past Medical History Osteoarthritis Depression Cardiac arrhythmia Coronary artery disease Old myocardial infarction Hyperlipidemia Back pain BPH Sleep apnea History of migraine headaches Diabetes mellitus type 2 Past Surgical History Pacemaker placement in 2016 Coronary stents Lithotripsy Allergies: Coded Allergies: morphine (Unverified Allergy, Severe, "doctor stated i was unconscious and shaking", 03/17/17) ?SEIZURE Review of Systems Constitutional Constitutional Remarks No fevers Objective . Vital Signs Date Time Temp Pulse Resp B/P (MAP) Pulse Ox O2 Delivery O2 Flow Rate FiO2 03/31/17 08:00 98 Nasal Cannula 2.00 03/31/17 08:00 95.1 59 18 175/94 (121) 95 03/31/17 06:00 97.5 60 20 133/83 (100) 100 03/31/17 00:00 98.2 79 24 176/92 (120) 97 03/30/17 21:57 96 Nasal Cannula 1.50 03/30/17 20:00 98.4 68 16 152/82 (105) 95 03/30/17 19:01 18 03/30/17 16:00 97.6 104 16 149/79 (102) 96 03/30/17 15:58 18 03/31/17 03/31/17 04/01/17 15:00 23:00 07:00 Output Total 1000 ml Balance -1000 ml Output Urine Total 1000 ml . Microbiology Date/Time Source Procedure Growth Status 03/28/17 17:25 Blood Peripheral Aerobic Blood Culture - Preliminary NO GROWTH IN 3 DAYS Resulted 03/28/17 17:25 Blood Peripheral Anaerobic Blood Culture - Preliminary NO GROWTH IN 3 DAYS Resulted 03/28/17 17:25 Blood Peripheral Aerobic Blood Culture - Preliminary NO GROWTH IN 3 DAYS Resulted 03/28/17 17:25 Blood Peripheral Anaerobic Blood Culture - Preliminary NO GROWTH IN 3 DAYS Resulted Physical Exam GENERAL: This is a chronically ill patient, in no apparent distress answering all questions appropriately SKIN: Healing zoster HEAD: Atraumatic. Normocephalic. No temporal or scalp tenderness. EYES: Pupils equal round and reactive. Extraocular motions intact. No scleral icterus. No injection or drainage. ENT: Nose without bleeding, purulent drainage or septal hematoma. Throat without erythema, tonsillar hypertrophy or exudate. Uvula midline. Airway patent. NECK: Trachea midline. No JVD or lymphadenopathy. Supple, nontender, no meningeal signs. CARDIOVASCULAR: Regular rate and rhythm without murmurs, gallops, or rubs. RESPIRATORY: Clear to auscultation. Breath sounds equal bilaterally. No wheezes , rales, or rhonchi. GASTROINTESTINAL: Abdomen soft, non-tender, nondistended. No hepato-splenomegaly , or palpable masses. No guarding. MUSCULOSKELETAL: Extremities without clubbing, cyanosis, or edema. No joint tenderness, effusion, or edema noted. No calf tenderness. Negative Homans sign bilaterally. NEUROLOGICAL: Awake and alert. Cranial nerves II through XII intact. Motor and sensory grossly within normal limits. Five out of 5 muscle strength in all muscle groups. Slow to respond Assessment & Plan Diagnosis: (1) UTI (urinary tract infection) ICD Codes: N39.0 - Urinary tract infection, site not specified Plan: Repeat UA negative Stop IV Cefazolin Start Cephalexin 500 mg po tid x 7 days (2) Fever ICD Codes: R50.9 - Fever, unspecified Status: Resolved (3) Metabolic encephalopathy ICD Codes: G93.41 - Metabolic encephalopathy Plan: Improved Problem Qualifiers (1) UTI (urinary tract infection): (2) Fever: Samaria Sweeney MD Mar 31, 2017 12:23
[2017-03-31] MEDS ORDERED: CEPHALEXIN MONOHYDRATE 500 MG CAP PO SCH (14:00)
[2017-03-31 16:00] VITALS: BP 157/87; PULSE 68; RESP 20; TEMP 97.9; O2SAT 97
[2017-03-31] MEDS ORDERED: CEPH-460 PO (17:32)
--- NOTE | 2017-03-31 17:34 | HHI.DS ---
Discharge Summary Admission Date Mar 24, 2017 at 16:35 Discharge Date: Mar 31, 2017 Admitting Diagnosis AMS from overmedication (1) Metabolic encephalopathy ICD Code: G93.41 - Metabolic encephalopathy (2) Urinary retention ICD Code: R33.9 - Retention of urine, unspecified (3) Shingles ICD Code: B02.9 - Zoster without complications (4) HTN (hypertension) ICD Code: I10 - Hypertension Status: Chronic (5) Seizure disorder ICD Code: G40.909 - Seizure disorder Status: Chronic (6) UTI (urinary tract infection) ICD Code: N39.0 - Urinary tract infection, site not specified (7) DM2 (diabetes mellitus, type 2) ICD Code: E11.9 - Type 2 diabetes mellitus without complications Procedures None Brief History - From Admission Mr. Yousif is a 81-year-old male. He is lethargic when seen and history is limited. He is mostly reporting and perseverating about genital pain related to shingles. He was brought in secondary to altered mental status. His altered mental status is related to lethargy which is thought to be secondary to narcotic effect. He's been using narcotics to try to help treat his pain from genital shingles. Some pain control is present but he had a graduated decline in his mental state so the monitor narcotics is been using is likely too much. CT of the brain shows stability without evidence of bleed, ischemia, or other pathology. Patient denies any chest pain. No other complaints. CBC/BMP: 03/29/17 0910 03/29/17 0910 Significant Findings Laboratory Tests Test 03/29/17 09:10 03/31/17 06:00 White Blood Count 13.0 TH/MM3 (4.0-11.0) Red Blood Count 3.64 MIL/MM3 (4.50-5.90) Hemoglobin 11.5 GM/DL (13.0-17.0) Hematocrit 34.6 % (39.0-51.0) Neutrophils (%) (Auto) 85.2 % (16.0-70.0) Lymphocytes (%) (Auto) 8.4 % (9.0-44.0) Neutrophils # (Auto) 11.1 TH/MM3 (1.8-7.7) Random Glucose 169 MG/DL (74-106) Total Protein 6.1 GM/DL (6.4-8.2) Albumin 2.6 GM/DL (3.4-5.0) Calcium Level 8.1 MG/DL (8.5-10.1) Phosphorus Level 2.2 MG/DL (2.5-4.9) Estimat Glomerular Filtration Rate 75 ML/MIN (>89) Urine Leukocyte Esterase SMALL (NEG) Imaging Last Impressions Brain MRI 03/30/17 0000 Signed Impressions: Service Date/Time: March 13:54 - CONCLUSION: 1. Essentially stable MRI of brain since August 02. 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 No abnormal enhancing lesions. Right frontal shunt stable. Stable ventricular size. No acute infarct. Milan Ash MD Head CT 03/28/17 0000 Signed Impressions: Service Date/Time: Tuesday, March 28, 2017 16:27 - CONCLUSION: 1. No acute findings. Stable right frontal ventriculostomy tube compared with March 18. Milan Ash MD PE at Discharge Old zoster scars around the scrotum and into the buttocks GENERAL: This is a well-nourished, well-developed patient, in no apparent distress. CARDIOVASCULAR: Regular rate and rhythm without murmurs, gallops, or rubs. RESPIRATORY: Clear to auscultation. Breath sounds equal bilaterally. No wheezes , rales, or rhonchi. GASTROINTESTINAL: Abdomen soft, non-tender, nondistended. Normal active bowel sounds MUSCULOSKELETAL: Extremities without clubbing, cyanosis, or edema. NEURO:calm awake, alert and oriented 3 Hospital Course Patient is a 81-year-old gentleman who is admitted and evaluated for metabolic and toxic encephalopathy. He had some improvement after his narcotics were held. Patient also had EEGs which showed some chronic changes as well as encephalopathy. Patient was taking quite a bit of pain medicine for shingles which was severe on his scrotum and his Botox. Patient was started on acyclovir and his rash improved. He was seen by neurology as well as infectious disease team for his issues. Patient had diabetes which is well controlled and his blood pressure continued to require medical management. Patient required physical occupational therapy and was recommended for rehabilitation. Patient also developed urinary retention for which urology was consulted. Patient was continued on Flomax with indwelling catheter. He will need to have that reevaluated once he more mobile. Pt Condition on Discharge: Good Discharge Disposition: Discharge to SNF Discharge Time: > 30 minutes Discharge Instructions DIET: Follow Instructions for: Diabetic Diet Speech Therapy-Diet Recommends: Regular Activities you can perform: Regular-No Restrictions Follow up Referrals: PCP Follow-up - 1 Week New Medications: Cephalexin (Keflex) 500 Mg Cap 500 MG PO Q8H for Infection for 7 Days, #21 CAP 0 Refills Walker with Front Wheels (Walker with Front Wheels) 1 Mis Mis EA .ROUTE DIRECTED, #1 0 Refills Acyclovir (Acyclovir) 800 Mg Tab 800 MG PO 5 TIMES A DAY for virus, #[address] (Diclofenac Sodium DR) 50 Mg Tabdr 50 MG PO Q12HR for Pain Management, #60 TAB Continued Medications: Albuterol Neb (Albuterol Neb) 2.5 Mg/3 Ml Neb 2.5 MG NEB Q4HR NEB for Breathing Treatment, #60 NEBULE 0 Refills While awake Amlodipine (Amlodipine) 5 Mg Tab 10 MG PO DAILY for Blood Pressure Management, #135 TAB 0 Refills Carbamazepine (Carbamazepine) 200 Mg Tab 200 MG PO BID, #180 TAB 1 Refill Carvedilol (Carvedilol) 12.5 Mg Tab 12.5 MG PO BID, #180 TAB 1 Refill Clopidogrel (Plavix) 75 Mg Tab 75 MG PO DAILY for Blood Clot Prevention, #90 TAB 1 Refill Donepezil (Donepezil) 5 Mg Tab 5 MG PO HS for Dementia, #30 TAB 0 Refills Finasteride (Finasteride) 5 Mg Tab 5 MG PO DAILY for Manage Prostate Problems, #30 TAB 0 Refills Do not crush. Gabapentin (Gabapentin) 100 Mg Cap 200 MG PO TID, #90 CAP 0 Refills Glipizide (Glipizide) 5 Mg Tab 5 MG PO DAILY for Blood Sugar Management, #30 TAB 0 Refills Take 30 minutes before a meal Lisinopril (Lisinopril) 40 Mg Tab 40 MG PO DAILY for Blood Pressure Management, #30 TAB 0 Refills Metformin (Glucophage) 500 Mg Tab 500 MG PO BIDPC for Blood Sugar Management, #180 TAB 0 Refills With meals Nateglinide (Nateglinide) 60 Mg Tab 60 MG PO TIDAC for Blood Sugar Management, #90 TAB 0 Refills Rosuvastatin (Crestor) 40 Mg Tab 40 MG PO DAILY for Cholesterol Management, #30 TAB 0 Refills Sennosides Liq (Senexon Liq) 8.8 Mg/5 Ml Liq 2 TAB PO BID for Constipation, ML 0 Refills Sitagliptin (Januvia) 100 Mg Tab 100 MG PO DAILY for Blood Sugar Management, #30 TAB 0 Refills Topiramate (Topiramate) 25 Mg Tab 25 MG PO BID for Control Seizures, #60 TAB 0 Refills Valacyclovir (Valtrex) 1,000 Mg Tab 1000 MG PO TID for Mgmt Viral Infection for 7 Days, #90 TAB 0 Refills Discontinued Medications: Acetaminophen (Mapap Extra Strength) 500 Mg Tab 1000 MG PO Q8HR PRN for PAIN, #21 TAB 0 Refills Oxycodone-Acetaminophen (Percocet) 5-325 mg Tab 1 TAB PO Q6H PRN for PAIN, TAB 0 Refills So Carrillo MD Mar 31, 2017 17:34
[2017-04-19] MEDS ORDERED: TAMS5CAP PO (11:08)
== END 2017-03-31 17:27 | DRG 917 ==
LOC: PHED 13:22 → PHEDA 15:59 → PH3B 16:48 → PH5A 03-23 17:47 → OBSVTOIN 03-24 16:35
PROVIDERS: ADMIT Hospitalist; ATTEND Hospitalist
DX: T40.601A Poisoning by unspecified narcotics, accidental (unintentional), initial encounter (principal); G92 Toxic encephalopathy; N17.9 Acute kidney failure, unspecified; B02.9 Zoster without complications; I12.9 Hypertensive chronic kidney disease with stage 1 through stage 4 chronic kidney disease, or unspecified chronic kidney disease; E11.9 Type 2 diabetes mellitus without complications; B95.61 Methicillin susceptible Staphylococcus aureus infection as the cause of diseases classified elsewhere; T83.511A Infection and inflammatory reaction due to indwelling urethral catheter, initial encounter; N39.0 Urinary tract infection, site not specified; N18.3 Chronic kidney disease, stage 3 (moderate); R33.9 Retention of urine, unspecified; M19.90 Unspecified osteoarthritis, unspecified site; F32.9 Major depressive disorder, single episode, unspecified; I25.10 Atherosclerotic heart disease of native coronary artery without angina pectoris; I25.2 Old myocardial infarction; Z95.5 Presence of coronary angioplasty implant and graft; E78.5 Hyperlipidemia, unspecified; G47.30 Sleep apnea, unspecified; Z95.0 Presence of cardiac pacemaker; Z79.84 Long term (current) use of oral hypoglycemic drugs; I49.9 Cardiac arrhythmia, unspecified; M54.9 Dorsalgia, unspecified; Z98.2 Presence of cerebrospinal fluid drainage device
CPT/HCPCS: 70450; 70551; 70553; 80048; 80053; 80156; 80307; 81001; 82550; 82948; 83735; 84100; 85025; 86403; 87040; 87086; 87147; 87186; 94640; 94664; 95819; 96361; 96372; 96374; 96376; A9579; G0378; G8987-GP; G8988-GP; J0690; J0696; J1170; J1815; J3370; J7030; J7040; J7050; J7613

== ENCOUNTER 2017-11-28 13:13 | Emergency (ER) | payer MEDICARE, OTHER ==
[~2017-11-28] VITALS: Ht 172.7 cm; Wt 91.0 kg
[~2017-11-28 13:13] MED LIST changes: +GABA100C4 PO; -MAPA500T13 PO; -OXYC1CAP PO; +TAMS5CAP PO; -TOPI1TAB97 PO; +TOPI25TA7 PO; -VALT1TAB PO; +WALKER WHEELS/F1 MIS
[2017-11-28 13:20] VITALS: BP 143/67; PULSE 68; RESP 17; TEMP 98.1; O2SAT 96
[2017-11-28] MEDS ORDERED: SODIUM CHLOR 0.9% 1000 ML INJ 1,000 ML IV SCH (13:33)
[2017-11-28] MEDS ORDERED: ESCI10TA PO (13:41)
[2017-11-28] MEDS ORDERED: SODIUM CHLORIDE 0.9% FLUSH 10 ML FLUSH IV FLUSH PRN (13:45)
[2017-11-28] MEDS ORDERED: KETOROLAC TROMETHAMINE 30 MG/ML (IVP) VIAL IV PUSH ONE (13:45)
--- NOTE | 2017-11-28 13:56 | PD ---
HPI Chief Complaint: Hip Injury Time Seen by Provider: 13:24 Travel History International Travel<30 days: No Contact w/Intl Traveler<30days: No Traveled to known affect area: No History of Present Illness HPI Patient is a 81-year-old male who presents the emergency room with complaints of left-sided flank pain. Patient reports that he has been having left-sided flank pain which is ongoing for the past 4 days, reports that pain has been constant, nonradiating in nature. Patient reports that nothing makes the pain better or worse. Patient denies any dysuria, urinary urgency or frequency, denies any hematuria. Patient reports history of kidney stones in the past - his last kidney stone was 8 years ago and did require urological intervention. Patient reports that pain feels more severe than 8 years ago. Patient denies any trauma to the flank, denies any fall. Patient denies any fevers or chills, denies any nausea or vomiting, patient with no other complaints at this time. PFSH Past Medical History Hx Anticoagulant Therapy: Yes Arthritis: Yes Asthma: No Autoimmune Disease: No Anxiety: No Depression: Yes Heart Rhythm Problems: Yes (pacemaker) Cancer: No Cardiac Catheterization: Yes Cardiovascular Problems: Yes High Cholesterol: Yes Chemotherapy: No Chest Pain: Yes Congestive Heart Failure: No COPD: No Coronary Artery Disease: Yes Diabetes: Yes Patient Takes Glucophage: No Diminished Hearing: No Endocrine: Yes Gastrointestinal Disorders: No GERD: No Genitourinary: Yes ("SLOW STARTING") Headaches: Yes Hiatal Hernia: No Heparin Induced Thrombocytopen: No Hypertension: Yes Immune Disorder: No Implanted Vascular Access Dvce: Yes Kidney Stones: Yes Musculoskeletal: Yes (CHRONIC BACK PAIN) Neurologic: Yes Psychiatric: No Reproductive: No Respiratory: Yes Immunizations Current: Yes Migraines: Yes Myocardial Infarction: Yes Radiation Therapy: No Renal Failure: No Seizures: Yes Sickle Cell Disease: No Sleep Apnea: Yes Thyroid Disease: No Ulcer: No Past Surgical History AICD: No Arteriovenous Shunt: No Body Medical Devices: "SCREWS AND PLATES" TO LEFT ARM Cardiac Surgery: Yes (PACEMAKER: FEBRUARY 2016 possible defib) Coronary Stent: Yes Ear Surgery: No Endocrine Surgery: No Eye Surgery: No Genitourinary Surgery: Yes (RIGHT KIDNEY WHEN YOUNGER, LITHROTRIPSY) Gynecologic Surgery: No Insulin Pump: No Joint Replacement: No Neurologic Surgery: Yes (since 6:30 was added on) Oral Surgery: No Pacemaker: Yes Thoracic Surgery: No Other Surgery: Yes (shunt placed Rt side of neck) Social History Alcohol Use: No Tobacco Use: No Substance Use: No Allergies-Medications (Allergen,Severity, Reaction): Coded Allergies: morphine (Verified Allergy, Severe, "doctor stated i was unconscious and shaking", 11/28/17) ?SEIZURE Reported Meds & Prescriptions Reported Meds & Active Scripts Active Flomax (Tamsulosin HCl) 0.4 Mg Cap 0.4 Mg PO HS Walker with Front Wheels (Device) 1 Mis Mis Ea .ROUTE DIRECTED Carvedilol 12.5 Mg Tab 12.5 Mg PO BID Plavix (Clopidogrel Bisulfate) 75 Mg Tab 75 Mg PO DAILY Carbamazepine 200 Mg Tab 200 Mg PO BID Albuterol Neb (Albuterol Sulfate) 2.5 Mg/3 Ml Neb 2.5 Mg NEB Q4HR NEB While awake Reported Escitalopram (Escitalopram Oxalate) 10 Mg Tab 10 Mg PO DAILY Lisinopril 40 Mg Tab 40 Mg PO DAILY Glipizide 5 Mg Tab 5 Mg PO DAILY Take 30 minutes before a meal Donepezil 5 Mg Tab 10 Mg PO HS Nateglinide 60 Mg Tab 60 Mg PO TIDAC Topiramate 25 Mg Tab 25 Mg PO BID Januvia (Sitagliptin Phosphate) 100 Mg Tab 100 Mg PO DAILY Finasteride 5 Mg Tab 5 Mg PO DAILY Do not crush. Crestor (Rosuvastatin Calcium) 40 Mg Tab 40 Mg PO DAILY Glucophage (Metformin HCl) 500 Mg Tab 500 Mg PO BIDPC With meals Amlodipine (Amlodipine Besylate) 5 Mg Tab 5 Mg PO DAILY Review of Systems General / Constitutional: No: Fever Eyes: No: Visual changes HENT: No: Headaches Cardiovascular: No: Chest Pain or Discomfort Respiratory: No: Shortness of Breath Gastrointestinal: No: Abdominal Pain Genitourinary: Positive: Flank Pain, No: Urgency, Frequency, Dysuria, Hematuria Musculoskeletal: No: Pain Skin: No Rash Neurologic: No: Weakness Psychiatric: No: Depression Endocrine: No: Polydipsia Hematologic/Lymphatic: No: Easy Bruising Physical Exam Narrative GENERAL: Moderate distress SKIN: Focused skin assessment warm/dry. HEAD: Atraumatic. Normocephalic. EYES: Pupils equal and round. No scleral icterus. No injection or drainage. ENT: No nasal bleeding or discharge. Mucous membranes pink and moist. NECK: Trachea midline. No JVD. CARDIOVASCULAR: Regular rate and rhythm. No murmur appreciated. RESPIRATORY: No accessory muscle use. Clear to auscultation. Breath sounds equal bilaterally. GASTROINTESTINAL: Abdomen soft, non-tender, nondistended. Hepatic and splenic margins not palpable. MUSCULOSKELETAL: No obvious deformities. No clubbing. No cyanosis. No edema. Patient with left sided flank pain exam NEUROLOGICAL: Awake and alert. No obvious cranial nerve deficits. Motor grossly within normal limits. Normal speech. PSYCHIATRIC: Appropriate mood and affect; insight and judgment normal. Data Data Last Documented VS Vital Signs Date Time Temp Pulse Resp B/P (MAP) Pulse Ox O2 Delivery O2 Flow Rate FiO2 11/28/17 17:00 65 16 130/62 (84) 99 Room Air 11/28/17 13:20 98.1 Orders Orders Complete Blood Count With Diff (11/28/17 13:33) Comprehensive Metabolic Panel (11/28/17 13:33) Lipase (11/28/17 13:33) Prothrombin Time / Inr (Pt) (11/28/17 13:33) Act Partial Throm Time (Ptt) (11/28/17 13:33) Urinalysis - C+S If Indicated (11/28/17 13:33) Ct Abd/Pel W/O Iv Contrast (11/28/17 13:33) Iv Access Insert/Monitor (11/28/17 13:33) Ecg Monitoring (11/28/17 13:33) Oximetry (11/28/17 13:33) Sodium Chlor 0.9% 1000 Ml Inj (Ns 1000 M (11/28/17 13:33) Sodium Chloride 0.9% Flush (Ns Flush) (11/28/17 13:45) Ketorolac Inj (Toradol Inj) (11/28/17 13:45) Blood Glucose (11/28/17 15:25) Labs Laboratory Tests Test 11/28/17 13:54 11/28/17 15:58 White Blood Count 6.3 TH/MM3 Red Blood Count 4.26 MIL/MM3 Hemoglobin 13.2 GM/DL Hematocrit 39.5 % Mean Corpuscular Volume 92.8 FL Mean Corpuscular Hemoglobin 30.9 PG Mean Corpuscular Hemoglobin Concent 33.3 % Red Cell Distribution Width 14.6 % Platelet Count 203 TH/MM3 Mean Platelet Volume 8.8 FL Neutrophils (%) (Auto) 77.9 % Lymphocytes (%) (Auto) 14.6 % Monocytes (%) (Auto) 5.2 % Eosinophils (%) (Auto) 1.5 % Basophils (%) (Auto) 0.8 % Neutrophils # (Auto) 4.9 TH/MM3 Lymphocytes # (Auto) 0.9 TH/MM3 Monocytes # (Auto) 0.3 TH/MM3 Eosinophils # (Auto) 0.1 TH/MM3 Basophils # (Auto) 0.1 TH/MM3 CBC Comment DIFF FINAL Differential Comment Prothrombin Time 11.1 SEC Prothromb Time International Ratio 1.1 RATIO Activated Partial Thromboplast Time 22.9 SEC Blood Urea Nitrogen 24 MG/DL Creatinine 1.39 MG/DL Random Glucose 251 MG/DL Total Protein 7.0 GM/DL Albumin 3.5 GM/DL Calcium Level 8.2 MG/DL Alkaline Phosphatase 133 U/L Aspartate Amino Transf (AST/SGOT) 25 U/L Alanine Aminotransferase (ALT/SGPT) 33 U/L Total Bilirubin 0.3 MG/DL Sodium Level 143 MEQ/L Potassium Level 4.2 MEQ/L Chloride Level 112 MEQ/L Carbon Dioxide Level 22.4 MEQ/L Anion Gap 9 MEQ/L Estimat Glomerular Filtration Rate 49 ML/MIN Lipase 133 U/L Urine Color YELLOW Urine Turbidity CLEAR Urine pH 5.5 Urine Specific [place] 1.014 Urine Protein 30 mg/dL Urine Glucose (UA) 300 mg/dL Urine Ketones NEG mg/dL Urine Occult Blood NEG Urine Nitrite NEG Urine Bilirubin NEG Urine Urobilinogen LESS THAN 2.0 MG/DL Urine Leukocyte Esterase NEG Urine WBC LESS THAN 1 /hpf Urine Mucus FEW /lpf Microscopic Urinalysis Comment CULT NOT INDICATED MDM Medical Decision Making Medical Screen Exam Complete: Yes Emergency Medical Condition: Yes Medical Record Reviewed: Yes Interpretation(s) Vital Signs Date Time Temp Pulse Resp B/P (MAP) Pulse Ox O2 Delivery O2 Flow Rate FiO2 11/28/17 13:20 98.1 68 17 143/67 (92) 96 Differential Diagnosis Kidney stone, UTI, pyelonephritis, muscle skeletal pain Narrative Course Patient is a 81-year-old male who presents to emergency room with complaints of left sided flank pain which is been ongoing for the past 4 days. Patient with history of kidney stones in the past. During the course of the patients emergency department visit, the patients history, examination, and differential diagnosis were reviewed with the patient. The patient was placed on a teletypesetter monitor with oximetry and frequent blood pressure monitoring. The patient had an IV access obtained and blood work sent for analysis. The patient was initially provided IV fluids as well as IV Toradol for pain. The patients laboratory studies were reviewed and remarkable for Laboratory Tests Test 11/28/17 13:54 11/28/17 15:58 White Blood Count 6.3 TH/MM3 (4.0-11.0) Red Blood Count 4.26 MIL/MM3 (4.50-5.90) Hemoglobin 13.2 GM/DL (13.0-17.0) Hematocrit 39.5 % (39.0-51.0) Mean Corpuscular Volume 92.8 FL (80.0-100.0) Mean Corpuscular Hemoglobin 30.9 PG (27.0-34.0) Mean Corpuscular Hemoglobin Concent 33.3 % (32.0-36.0) Red Cell Distribution Width 14.6 % (11.6-17.2) Platelet Count 203 TH/MM3 (150-450) Mean Platelet Volume 8.8 FL (7.0-11.0) Neutrophils (%) (Auto) 77.9 % (16.0-70.0) Lymphocytes (%) (Auto) 14.6 % (9.0-44.0) Monocytes (%) (Auto) 5.2 % (0.0-8.0) Eosinophils (%) (Auto) 1.5 % (0.0-4.0) Basophils (%) (Auto) 0.8 % (0.0-2.0) Neutrophils # (Auto) 4.9 TH/MM3 (1.8-7.7) Lymphocytes # (Auto) 0.9 TH/MM3 (1.0-4.8) Monocytes # (Auto) 0.3 TH/MM3 (0-0.9) Eosinophils # (Auto) 0.1 TH/MM3 (0-0.4) Basophils # (Auto) 0.1 TH/MM3 (0-0.2) CBC Comment DIFF FINAL Differential Comment Prothrombin Time 11.1 SEC (9.8-11.6) Prothromb Time International Ratio 1.1 RATIO Activated Partial Thromboplast Time 22.9 SEC (24.3-30.1) Blood Urea Nitrogen 24 MG/DL (7-18) Creatinine 1.39 MG/DL (0.60-1.30) Random Glucose 251 MG/DL (74-106) Total Protein 7.0 GM/DL (6.4-8.2) Albumin 3.5 GM/DL (3.4-5.0) Calcium Level 8.2 MG/DL (8.5-10.1) Alkaline Phosphatase 133 U/L (45-117) Aspartate Amino Transf (AST/SGOT) 25 U/L (15-37) Alanine Aminotransferase (ALT/SGPT) 33 U/L (12-78) Total Bilirubin 0.3 MG/DL (0.2-1.0) Sodium Level 143 MEQ/L (136-145) Potassium Level 4.2 MEQ/L (3.5-5.1) Chloride Level 112 MEQ/L (98-107) Carbon Dioxide Level 22.4 MEQ/L (21.0-32.0) Anion Gap 9 MEQ/L (5-15) Estimat Glomerular Filtration Rate 49 ML/MIN (>89) Lipase 133 U/L (73-393) Urine Color YELLOW (YELLW/STRAW) Urine Turbidity CLEAR (CLEAR) Urine pH 5.5 (5.0-8.5) Urine Specific [place] 1.014 (1.002-1.035) Urine Protein 30 mg/dL (NEG-TRACE) Urine Glucose (UA) 300 mg/dL (NEG) Urine Ketones NEG mg/dL (NEG) Urine Occult Blood NEG (NEG) Urine Nitrite NEG (NEG) Urine Bilirubin NEG (NEG) Urine Urobilinogen LESS THAN 2.0 MG/DL (LESS Urine Leukocyte Esterase NEG (NEG) Urine WBC LESS THAN 1 /hpf (0-5) Urine Mucus FEW /lpf (OCC) Microscopic Urinalysis Comment CULT NOT INDICATED Radiology studies were reviewed and remarkable for CT of the abdomen and pelvis with no acute findings CBC: WNL BMP: Sodium 143, potassium 4.2, BUN 24, creatinine 1.39, glucose 251 UA: 300 glucose, 30 protein, few mucus, less than 1 white blood cell, negative leuk esterase Patient with no acute findings on the CAT scan, patient with most likely musculoskeletal chest pain. Patient will be discharged to home. Signs and symptoms of when to return to the ER was reviewed with patient in detail Diagnosis Primary Impression: Left flank pain Additional Impressions: Hyperglycemia Renal insufficiency Patient Instructions: General Instructions Additional Instructions: Please provide patient with a copy of their lab work and studies at discharge* * Please follow up with your primary care doctor in 2-3 days Return to the ER if symptoms worsen or progress Return to the ER as needed Med/Other Pt SpecificInfo: Prescription(s) given Scripts Ibuprofen (Ibuprofen) 600 Mg Tab 600 MG PO Q6H Y for Pain/Inflammation, #40 TAB 0 Refills Prov: Ruma Duke DO 11/28/17 Disposition: 01 DISCHARGE HOME Condition: Stable Ruma Duke DO November 28, 2017 13:56
[2017-11-28 14:07] LABS: AUTOMATED NEUTROPHIL # 4.9 TH/MM3 (1.8-7.7); BASOPHIL # 0.1 TH/MM3 (0-0.2); BASOPHIL % 0.8 % (0.0-2.0); EOSINOPHIL # 0.1 TH/MM3 (0-0.4); EOSINOPHIL % 1.5 % (0.0-4.0); HEMATOCRIT 39.5 % (39.0-51.0); HEMOGLOBIN 13.2 GM/DL (13.0-17.0); LYMPH % 14.6 % (9.0-44.0); LYMPHOCYTE # 0.9 TH/MM3 (1.0-4.8); MEAN CELL VOLUME 92.8 FL (80.0-100.0); MEAN CORPUSCULAR HEMOGLOBIN 30.9 PG (27.0-34.0); MEAN CORPUSCULAR HGB CONC 33.3 % (32.0-36.0); MEAN PLATELET VOLUME 8.8 FL (7.0-11.0); MONO % 5.2 % (0.0-8.0); MONOCYTE # 0.3 TH/MM3 (0-0.9); NEUT % 77.9 % (16.0-70.0); PLATELET COUNT 203 TH/MM3 (150-450); RED BLOOD COUNT 4.26 MIL/MM3 (4.50-5.90); RED CELL DISTRIBUTION WIDTH 14.6 % (11.6-17.2); WHITE BLOOD COUNT 6.3 TH/MM3 (4.0-11.0)
[2017-11-28 14:18] LABS: INTERNATIONAL NORMALIZED RATIO 1.1 RATIO; PROTHROMBIN TIME - PATIENT 11.1 SEC (9.8-11.6)
[2017-11-28 14:55] LABS: ALKALINE PHOSPHATASE 133 U/L (45-117); TOTAL BILIRUBIN ADULT 0.3 MG/DL (0.2-1.0)
[2017-11-28 14:57] LABS: ALBUMIN 3.5 GM/DL (3.4-5.0); ALT (GPT) 33 U/L (12-78); AST (GOT) 25 U/L (15-37); BICARBONATE 22.4 MEQ/L (21.0-32.0); BLOOD UREA NITROGEN 24 MG/DL (7-18); CALCIUM 8.2 MG/DL (8.5-10.1); CHLORIDE 112 MEQ/L (98-107); CREATININE 1.39 MG/DL (0.60-1.30); GLOMERULAR FILTRATION RATE 49 ML/MIN (>89); GLUCOSE,RANDOM 251 MG/DL (74-106); SODIUM (NA) 143 MEQ/L (136-145)
--- NOTE | 2017-11-28 15:11 | RADRPT ---
EXAM DATE: 11/28/2017 2:54 PM EDT AGE/SEX: 81 years / Male INDICATIONS: Left sided pain worsening over past 4 days. CLINICAL DATA: This is the patient's initial encounter. Patient reports that signs and symptoms have been present for 4 - 6 days and indicates a pain score of 10/10. MEDICAL/SURGICAL HISTORY: Cerebrovascular disease. Cardiovascular disease. Diabetes mellitus type II. Seizure. Hypertension. None. RADIATION DOSE: 13.57 CTDI (mGy) COMPARISON: [facility], CT ABDOMEN AND PELVIS W AND W/O CONTRAST, 04/05/2016. . TECHNIQUE: Multiple contiguous axial images were obtained through the abdomen. Images were obtained using multiple row detector helical technique. Using dose reduction techniques, radiation dose was ke pt as low as reasonably achievable to obtain optimal diagnostic quality images. FINDINGS: Visualized portions of the liver grossly unremarkable. The spleen, pancreas, adrenals and right kidney are unremarkable. There is a stable large cyst emanating from the lower pole of the left kidney. There is no evidence of kidney stone or hydronephrosis. No stones along the course of the ur eters. The bowel structures are normal in caliber without evidence of focal inflammatory changes or wall thi ckening. There are occasional distal colonic diverticula. The aorta is notable for dense atherosclerotic calcification. No evidence of aneurysm. There is no ev idence of retroperitoneal adenopathy. In the pelvis, no mass, adenopathy or free fluid is identified. The urinary bladder is unremarkable. There is no evidence of iliac or inguinal lymphadenopathy. Prominent degenerative changes noted in the lumbosacral spine. CONCLUSION: No acute CT findings in the abdomen or pelvis. Electronically signed by: Frankie Hilton MD 11/28/2017 3:10 PM EDT
[2017-11-28 15:30] VITALS: BP 130/62; PULSE 59; RESP 14; O2SAT 95; O2SAT 97
[2017-11-28 16:26] LABS: BILIRUBIN, URINE NEG (NEG); BLOOD, URINE NEG (NEG); GLUCOSE,URINE 300 mg/dL (NEG); KETONE, URINE NEG (NEG); MUCUS URINE FEW /lpf (OCC); NITRITE,URINE NEG (NEG); PH, URINE 5.5 (5.0-8.5); URINE COLOR YELLOW (YELLW/STRAW); URINE LEUKOCYTE ESTERASE NEG (NEG)
[2017-11-28 17:00] VITALS: BP 130/62; PULSE 65; RESP 16; O2SAT 99
[2017-11-28] MEDS ORDERED: IBUP-232 PO (17:38)
[2017-11-28 18:24] VITALS: BP 130/62
== END 2017-11-28 18:25 | disposition home or self-care (01) ==
LOC: NEPE 13:13
DX: R10.9 Unspecified abdominal pain (principal); E11.65 Type 2 diabetes mellitus with hyperglycemia; N28.9 Disorder of kidney and ureter, unspecified; E78.00 Pure hypercholesterolemia, unspecified; I10 Essential (primary) hypertension; I25.10 Atherosclerotic heart disease of native coronary artery without angina pectoris; Z79.02 Long term (current) use of antithrombotics/antiplatelets; Z79.84 Long term (current) use of oral hypoglycemic drugs
CPT/HCPCS: 74176; 80053; 81001; 83690; 85025; 85610; 85730; 96361; 96374; 99284; J1885; J7030

== ENCOUNTER 2017-12-29 10:28 | Emergency (ER) | payer MEDICARE, OTHER ==
[~2017-12-29] VITALS: Ht 172.7 cm; Wt 96.0 kg
[~2017-12-29 10:28] MED LIST changes: +ESCI10TA PO; -GABA100C4 PO; +IBUP-232 PO
[2017-12-29 10:32] VITALS: BP 146/66; PULSE 75; RESP 16; TEMP 97.4; O2SAT 96
[2017-12-29] MEDS ORDERED: SODIUM CHLORIDE 0.9% FLUSH 10 ML FLUSH IV FLUSH PRN (11:00)
[2017-12-29] MEDS ORDERED: SODIUM CHLOR 0.9% 1000 ML INJ 1,000 ML IV ONE (11:00)
[2017-12-29] MEDS ORDERED: oxyCODONE/ACETAMINOPHEN 5 MG/325 MG TAB PO ONE (11:00)
[2017-12-29 11:23] LABS: AUTOMATED NEUTROPHIL # 4.2 TH/MM3 (1.8-7.7); BASOPHIL % 0.8 % (0.0-2.0); EOSINOPHIL # 0.1 TH/MM3 (0-0.4); EOSINOPHIL % 2.4 % (0.0-4.0); LYMPH % 14.2 % (9.0-44.0); LYMPHOCYTE # 0.8 TH/MM3 (1.0-4.8); MEAN CELL VOLUME 93.7 FL (80.0-100.0); MEAN CORPUSCULAR HEMOGLOBIN 30.4 PG (27.0-34.0); MEAN CORPUSCULAR HGB CONC 32.4 % (32.0-36.0); MEAN PLATELET VOLUME 8.3 FL (7.0-11.0); MONO % 4.7 % (0.0-8.0); MONOCYTE # 0.3 TH/MM3 (0-0.9); NEUT % 77.9 % (16.0-70.0); PLATELET COUNT 182 TH/MM3 (150-450); RED BLOOD COUNT 4.27 MIL/MM3 (4.50-5.90); RED CELL DISTRIBUTION WIDTH 13.6 % (11.6-17.2); WHITE BLOOD COUNT 5.4 TH/MM3 (4.0-11.0)
[2017-12-29 11:25] LABS: BILIRUBIN, URINE NEG (NEG); BLOOD, URINE NEG (NEG); GLUCOSE,URINE NEG (NEG); KETONE, URINE NEG (NEG); NITRITE,URINE NEG (NEG); PH, URINE 5.5 (5.0-8.5); URINE COLOR YELLOW (YELLW/STRAW); URINE LEUKOCYTE ESTERASE NEG (NEG)
[2017-12-29 11:30] LABS: CHLORIDE 110 MEQ/L (98-107); SODIUM (NA) 144 MEQ/L (136-145)
[2017-12-29 11:32] LABS: SQUAMOUS EPITHELIAL CELL URINE 0-5 /hpf (0-5)
[2017-12-29 11:33] LABS: CALCIUM 8.1 MG/DL (8.5-10.1)
[2017-12-29 11:34] LABS: ALBUMIN 3.3 GM/DL (3.4-5.0); BICARBONATE 26.8 MEQ/L (21.0-32.0); BLOOD UREA NITROGEN 21 MG/DL (7-18); GLUCOSE,RANDOM 185 MG/DL (74-106)
[2017-12-29 11:37] LABS: ALT (GPT) 32 U/L (12-78); AST (GOT) 13 U/L (15-37); GLOMERULAR FILTRATION RATE 49 ML/MIN (>89)
[2017-12-29 11:39] LABS: TOTAL BILIRUBIN ADULT 0.2 MG/DL (0.2-1.0); TOTAL PROTEIN 6.8 GM/DL (6.4-8.2)
[2017-12-29 11:40] LABS: ALKALINE PHOSPHATASE 138 U/L (45-117)
--- NOTE | 2017-12-29 12:10 | RADRPT ---
EXAM DATE: 12/29/2017 11:27 AM EDT AGE/SEX: 82 years / Male INDICATIONS: Right flank pain. CLINICAL DATA: This is the patient's initial encounter. Patient reports that signs and symptoms have been present for 3 days and indicates a pain score of 10/10. MEDICAL/SURGICAL HISTORY: Cerebrovascular disease. Renal calculi. Diabetes. Hypertension. M yocardial infarction. Seizures. Pacemaker. Lithotripsy. Surgery to remove right renal calculi. RADIATION DOSE: 20.55 CTDI (mGy) COMPARISON: [facility], CT ABDOMEN AND PELVIS W AND W/O CONTRAST, 04/05/2016. . TECHNIQUE: Multiple contiguous axial images were obtained through the abdomen. Images were obtained using multiple row detector helical technique. Using automated exposure control and adjustment of the mA and/or kV according to patient size, radiation dose was kept as low as reasonably achievable to o btain optimal diagnostic quality images. DICOM format image data is available electronically for rev iew and comparison. FINDINGS: Right kidney/ureter: The right kidney is somewhat posterior in location. There are surgical clips in the anterior pararenal space. There is no hydronephrosis. No stones are identified within the right k idney. The right ureter is followed throughout its course and is unremarkable. Left kidney/ureter: The left kidney is normal in size. There is a 5.4 x 6.0 cm cyst projecting off th e lower pole. No stones are seen. There is no hydronephrosis. The left ureter is followed throughout its course no stones are seen. CT source data: The limited portion of lung base visualized is clear. The portions of liver visualize d are unremarkable by noncontrast imaging. The spleen, pancreas and adrenal glands are intact. The ab dominal aorta is normal in caliber. There is no retroperitoneal adenopathy. No free air or free fluid is seen. There is subtle stranding of the mesentery suggesting a possible mild mesenteritis. There a re some punctate nodes within this measuring 1 cm in size. The loops of small and large bowel are unr emarkable. Note is made of the tip of a ventriculoperitoneal shunt. There is no free fluid within the pelvis. No iliac or inguinal adenopathy is seen. The patient is post ventral hernia repair. There ar e degenerative changes throughout the lumbar spine. CONCLUSION: 1. No stone seen within either kidney. 2. 5.4 x 6.0 cm cyst in the left kidney which is relatively stable compared back to previous dated . 3. There is some subtle stranding of the root of the mesentery with some small nodes which could sug gest a mild mesenteritis. 4. Incidental tubing from a ventriculoperitoneal shunt. Electronically signed by: Asher Coley MD 12/29/2017 12:09 PM EDT
[2017-12-29 12:18] VITALS: BP 155/77; PULSE 67; RESP 18; O2SAT 97
[2017-12-29 12:42] LABS: PROTHROMBIN TIME - PATIENT 10.5 SEC (9.8-11.6)
--- NOTE | 2017-12-29 13:00 | PD ---
HPI Chief Complaint: Flank/Kidney Pain Time Seen by Provider: 10:44 Travel History International Travel<30 days: No Contact w/Intl Traveler<30days: No Traveled to known affect area: No History of Present Illness HPI Patient is an 82-year-old male who comes in complaining of right side pain. He is here frequently for this pain. Does have history of kidney stones in the past. He also says he has had surgery in this area and that causes him pain. He says he has had the pain for a few days, got worse last night he could not sleep. He denies nausea or vomiting. He denies urinary sent. Denies fever chills. He took a Lortab last night without relief of his symptoms. Severity is mild to moderate. PFSH Past Medical History Hx Anticoagulant Therapy: Yes Arthritis: Yes Asthma: No Autoimmune Disease: No Anxiety: No Depression: Yes Heart Rhythm Problems: Yes (pacemaker) Cancer: No Cardiac Catheterization: Yes Cardiovascular Problems: Yes High Cholesterol: Yes Chemotherapy: No Chest Pain: Yes Congestive Heart Failure: No COPD: No Coronary Artery Disease: Yes Diabetes: Yes Patient Takes Glucophage: Yes Diminished Hearing: No Endocrine: Yes Gastrointestinal Disorders: No GERD: No Genitourinary: Yes ("SLOW STARTING") Headaches: Yes Hiatal Hernia: No Heparin Induced Thrombocytopen: No Hypertension: Yes Immune Disorder: No Implanted Vascular Access Dvce: Yes Kidney Stones: Yes Musculoskeletal: Yes (CHRONIC BACK PAIN) Neurologic: Yes Psychiatric: No Reproductive: No Respiratory: Yes Immunizations Current: Yes Migraines: Yes Myocardial Infarction: Yes Radiation Therapy: No Renal Failure: No Seizures: Yes Sickle Cell Disease: No Sleep Apnea: Yes Thyroid Disease: No Ulcer: No Past Surgical History AICD: No Arteriovenous Shunt: No Body Medical Devices: "SCREWS AND PLATES" TO LEFT ARM Cardiac Surgery: Yes (PACEMAKER: FEBRUARY 2016 possible defib) Coronary Stent: Yes Ear Surgery: No Endocrine Surgery: No Eye Surgery: No Genitourinary Surgery: Yes (RIGHT KIDNEY WHEN YOUNGER, LITHROTRIPSY) Gynecologic Surgery: No Insulin Pump: No Joint Replacement: No Neurologic Surgery: Yes (since 6:30 was added on) Oral Surgery: No Pacemaker: Yes Thoracic Surgery: No Other Surgery: Yes (shunt placed Rt side of neck) Social History Alcohol Use: No Tobacco Use: No Substance Use: No Allergies-Medications (Allergen,Severity, Reaction): Coded Allergies: morphine (Verified Allergy, Severe, "doctor stated i was unconscious and shaking", 12/29/17) ?SEIZURE Reported Meds & Prescriptions Reported Meds & Active Scripts Active Ibuprofen 600 Mg Tab 600 Mg PO Q6H PRN Flomax (Tamsulosin HCl) 0.4 Mg Cap 0.4 Mg PO HS Walker with Front Wheels (Device) 1 Mis Mis Ea .ROUTE DIRECTED Carvedilol 12.5 Mg Tab 12.5 Mg PO BID Plavix (Clopidogrel Bisulfate) 75 Mg Tab 75 Mg PO DAILY Carbamazepine 200 Mg Tab 200 Mg PO BID Albuterol Neb (Albuterol Sulfate) 2.5 Mg/3 Ml Neb 2.5 Mg NEB Q4HR NEB While awake Reported Escitalopram (Escitalopram Oxalate) 10 Mg Tab 10 Mg PO DAILY Lisinopril 40 Mg Tab 40 Mg PO DAILY Glipizide 5 Mg Tab 5 Mg PO DAILY Take 30 minutes before a meal Donepezil 5 Mg Tab 10 Mg PO HS Nateglinide 60 Mg Tab 60 Mg PO TIDAC Topiramate 25 Mg Tab 25 Mg PO BID Januvia (Sitagliptin Phosphate) 100 Mg Tab 100 Mg PO DAILY Finasteride 5 Mg Tab 5 Mg PO DAILY Do not crush. Crestor (Rosuvastatin Calcium) 40 Mg Tab 40 Mg PO DAILY Glucophage (Metformin HCl) 500 Mg Tab 500 Mg PO BIDPC With meals Amlodipine (Amlodipine Besylate) 5 Mg Tab 5 Mg PO DAILY Review of Systems Except as stated in HPI: all other systems reviewed are Neg General / Constitutional: No: Fever, Chills HENT: No: Headaches, Lightheadedness Cardiovascular: No: Chest Pain or Discomfort Respiratory: No: Shortness of Breath Gastrointestinal: No: Nausea, Vomiting Genitourinary: Positive: Flank Pain Musculoskeletal: No: Edema Skin: No Rash, No Change in Pigmentation Neurologic: No: Weakness, Dizziness Physical Exam Narrative GENERAL: Awake and alert, in no acute distress. SKIN: Focused skin assessment warm/dry. HEAD: Atraumatic. Normocephalic. EYES: Pupils equal and round. No scleral icterus. ENT: Mucous membranes pink and moist. NECK: Trachea midline. No JVD. CARDIOVASCULAR: Regular rate and rhythm. No murmur appreciated. RESPIRATORY: No accessory muscle use. Clear to auscultation. Breath sounds equal bilaterally. GASTROINTESTINAL: Abdomen soft, nondistended. No CVA tenderness, mild right pelvis tenderness. No rebound or guarding. MUSCULOSKELETAL: No obvious deformities. No clubbing. No cyanosis. No edema. NEUROLOGICAL: Awake and alert. No obvious cranial nerve deficits. Motor grossly within normal limits. Normal speech. PSYCHIATRIC: Appropriate mood and affect; insight and judgment normal. Data Data Last Documented VS Vital Signs Date Time Temp Pulse Resp B/P (MAP) Pulse Ox O2 Delivery O2 Flow Rate FiO2 12/29/17 13:07 18 12/29/17 13:03 68 159/87 (111) 96 Room Air 12/29/17 10:32 97.4 Orders Orders Complete Blood Count With Diff (12/29/17 10:55) Comprehensive Metabolic Panel (12/29/17 10:55) Prothrombin Time / Inr (Pt) (12/29/17 10:55) Act Partial Throm Time (Ptt) (12/29/17 10:55) Urinalysis - C+S If Indicated (12/29/17 10:55) Ct Abd/Pel W/O Iv Contrast (12/29/17 10:55) Iv Access Insert/Monitor (12/29/17 10:55) Ecg Monitoring (12/29/17 10:55) Oximetry (12/29/17 10:55) Sodium Chloride 0.9% Flush (Ns Flush) (12/29/17 11:00) Sodium Chlor 0.9% 1000 Ml Inj (Ns 1000 M (12/29/17 11:00) Oxycodone-Acetamin 5-325 Mg (Percocet (12/29/17 11:00) Ed Discharge Order (12/29/17 13:00) Labs Laboratory Tests Test 12/29/17 11:00 12/29/17 11:10 12/29/17 12:15 Urine Color YELLOW Urine Turbidity CLEAR Urine pH 5.5 Urine Specific [place] 1.025 Urine Protein 30 mg/dL Urine Glucose (UA) NEG mg/dL Urine Ketones NEG mg/dL Urine Occult Blood NEG Urine Nitrite NEG Urine Bilirubin NEG Urine Urobilinogen 0.2 MG/DL Urine Leukocyte Esterase NEG Urine Squamous Epithelial Cells 0-5 /hpf Microscopic Urinalysis Comment CULT NOT INDICATED White Blood Count 5.4 TH/MM3 Red Blood Count 4.27 MIL/MM3 Hemoglobin 13.0 GM/DL Hematocrit 40.0 % Mean Corpuscular Volume 93.7 FL Mean Corpuscular Hemoglobin 30.4 PG Mean Corpuscular Hemoglobin Concent 32.4 % Red Cell Distribution Width 13.6 % Platelet Count 182 TH/MM3 Mean Platelet Volume 8.3 FL Neutrophils (%) (Auto) 77.9 % Lymphocytes (%) (Auto) 14.2 % Monocytes (%) (Auto) 4.7 % Eosinophils (%) (Auto) 2.4 % Basophils (%) (Auto) 0.8 % Neutrophils # (Auto) 4.2 TH/MM3 Lymphocytes # (Auto) 0.8 TH/MM3 Monocytes # (Auto) 0.3 TH/MM3 Eosinophils # (Auto) 0.1 TH/MM3 Basophils # (Auto) 0.0 TH/MM3 CBC Comment DIFF FINAL Differential Comment Blood Urea Nitrogen 21 MG/DL Creatinine 1.40 MG/DL Random Glucose 185 MG/DL Total Protein 6.8 GM/DL Albumin 3.3 GM/DL Calcium Level 8.1 MG/DL Alkaline Phosphatase 138 U/L Aspartate Amino Transf (AST/SGOT) 13 U/L Alanine Aminotransferase (ALT/SGPT) 32 U/L Total Bilirubin 0.2 MG/DL Sodium Level 144 MEQ/L Potassium Level 3.9 MEQ/L Chloride Level 110 MEQ/L Carbon Dioxide Level 26.8 MEQ/L Anion Gap 7 MEQ/L Estimat Glomerular Filtration Rate 49 ML/MIN Prothrombin Time 10.5 SEC Prothromb Time International Ratio 1.0 RATIO Activated Partial Thromboplast Time 24.9 SEC [facility] [place] Medical Decision Making Medical Screen Exam Complete: Yes Emergency Medical Condition: Yes Medical Record Reviewed: Yes Differential Diagnosis Renal stone versus musculoskeletal pain versus chronic pain versus UTI Narrative Course Patient is a 82-year-old male complaining of right side pain. Exam shows tenderness to the right side. IV established, labs sent. Labs show no acute abnormalities. CT abdomen pelvis performed shows no acute abnormalities. Last 24 hours Impressions Abdomen/Pelvis CT 12/29/17 1055 Signed Impressions: CONCLUSION: 1. No stone seen within either kidney. 2. 5.4 x 6.0 cm cyst in the left kidney which is relatively stable compared ba ck to previous dated 04/05/2016. 3. There is some subtle stranding of the root of the mesentery with some small nodes which could suggest a mild mesenteritis. 4. Incidental tubing from a ventriculoperitoneal shunt. Patient given pain medicine. He is feeling better. He is advised follow-up with his doctor. Advised return as needed for any worsening symptoms. Diagnosis Primary Impression: Flank pain Patient Instructions: Flank Pain (ED), General Instructions Additional Instructions: Take Tylenol as needed for pain. Follow-up with your doctor. Return to the ED as needed for any worsening symptoms. Scripts Hydrocodone-Acetaminophen ([place]) 5 Mg-325 Mg Tab 1 TAB PO Q6H Y for PAIN, #3 TAB 0 Refills Prov: Yuliana Churchill MD 12/29/17 Disposition: 01 DISCHARGE HOME Condition: Stable Yuliana Churchill MD Dec 29, 2017 13:00
[2017-12-29 13:03] VITALS: BP 159/87; PULSE 68; RESP 18; O2SAT 96
[2017-12-29 13:07] VITALS: RESP 18
[2017-12-29] MEDS ORDERED: NORC5TAB PO (13:17)
== END 2017-12-29 13:27 | disposition home or self-care (01) ==
LOC: PHED 10:28
DX: R10.9 Unspecified abdominal pain (principal); N28.1 Cyst of kidney, acquired; I10 Essential (primary) hypertension; E78.00 Pure hypercholesterolemia, unspecified; E11.9 Type 2 diabetes mellitus without complications; I25.10 Atherosclerotic heart disease of native coronary artery without angina pectoris; I25.2 Old myocardial infarction; M19.90 Unspecified osteoarthritis, unspecified site; F32.9 Major depressive disorder, single episode, unspecified; Z87.442 Personal history of urinary calculi; Z95.0 Presence of cardiac pacemaker; Z88.5 Allergy status to narcotic agent; Z79.84 Long term (current) use of oral hypoglycemic drugs; Z79.899 Other long term (current) drug therapy
CPT/HCPCS: 74176; 80053; 81001; 85025; 85610; 85730; 96360; 99284; J7030

== ENCOUNTER 2018-01-23 08:36 | Inpatient (IN) ==
--- NOTE | 2018-01-23 09:23 | XR ---
EXAM DATE: 01/23/2018 9:19 AM EDT AGE/SEX: 82 years / Male INDICATIONS: . Cough, congestion, short of breath, chest pain. CLINICAL DATA: This is the patient's initial encounter. Patient reports that signs and symptoms have been present for 3 days and indicates a pain score of 10/10. MEDICAL/SURGICAL HISTORY: . Cerebrovascular disease. Renal calculi. Diabetes. Hypertension. Jonatan cardial infarction. Pacemaker. Lithotripsy. Surgery to remove right renal calculi. COMPARISON: [facility] [place], CHEST SINGLE AP, 03/10/2017. . FINDINGS: The heart is normal in size. There is a transvenous pacer in place. The mediastinal contours are with in normal limits. There are mild chronic interstitial changes within the pulmonary parenchyma. This i s unchanged compared to previous study dated 03/10/2017. The lungs are otherwise clear. The visualize d bony structures are grossly intact. Incidental note is made of tubing from a ventriculoperitoneal shunt overlying the right chest. CONCLUSION: Chronic appearing interstitial changes. No acute abnormality. Unchanged from previous of 03/10/2017. Electronically signed by: Asher Coley MD 01/23/2018 9:22 AM EDT
[2018-01-23 09:45] LABS: Baso % (Auto) 0.4 % (0.0-2.0); Eos # (Auto) 0.1 th/mm3 (0.0-0.4); Eos % (Auto) 1.6 % (0.0-4.0); Hematocrit 40.9 % (39.0-51.0); Hemoglobin 13.3 gm/dL (13.0-17.0); Lymph # (Auto) 1.2 th/mm3 (1.0-4.8); Lymph % (Auto) 13.6 % (9.0-44.0); Mean Corpuscular HGB Conc 32.5 % (32.0-36.0); Mean Corpuscular Hemoglobin 30.7 pg (27.0-34.0); Mean Corpuscular Volume 94.4 fL (80.0-100.0); Mean Platelet Volume 8.7 fL (7.0-11.0); Mono # (Auto) 0.6 th/mm3 (0.0-0.9); Mono % (Auto) 6.6 % (0.0-8.0); Neut # (Auto) 6.7 th/mm3 (1.8-7.7); Neut % (Auto) 77.8 % (16.0-70.0); Platelet Count 177 th/mm3 (150-450); Red Blood Count 4.33 mil/mm3 (4.50-5.90); Red Cell Distribution Width 13.3 % (11.6-17.2); White Blood Count 8.6 th/mm3 (4.0-11.0)
[2018-01-23 09:46] LABS: Prothrombin Time 10.4 sec (9.8-11.6)
[2018-01-23] MEDS ORDERED: Sod Chloride 0.9% Inj 1,000 ML IV.SIG ONE (09:51)
[2018-01-23 09:53] LABS: Calcium 8.4 mg/dL (8.5-10.1)
[2018-01-23 09:54] LABS: Albumin 3.5 g/dL (3.4-5.0); Carbon Dioxide 26.6 meq/L (21.0-32.0); Glucose,Random 219 mg/dL (74-106); Magnesium 1.9 mg/dL (1.5-2.5)
[2018-01-23 09:56] LABS: Blood Urea Nitrogen 21 mg/dL (7-18)
--- NOTE | 2018-01-23 09:56 | ED ---
HPI General Chief complaint: Respiratory Symptoms Stated complaint: Cough/congestion x 3 days Time Seen by Provider: 01/23/18 08:57 Source: patient and RN notes reviewed Mode of arrival: ambulatory History of Present Illness HPI narrative: 82yM presenting with cough, fever, and chest pain. The patient states that he's had a cough for the past 2 days, was seen by his PMD yesterday and started on augmentin. He states that overnight he began to have substernal chest "pressure" which is constant, non-radiating, not made better or worse by anything, associated with diaphoresis and dyspnea. He reports cough productive of green sputum and tactile fevers. He has a history of CAD s/p stents and pacemaker implant. Family history non-contributory. Related Data Home Medications Medication Instructions Recorded Confirmed amlodipine 7.5 mg PO DAILY 01/11/18 01/11/18 carbamazepine 200 mg PO BID 01/11/18 01/11/18 carvedilol 12.5 mg PO BID 01/11/18 01/11/18 clopidogrel [Plavix] 75 mg PO DAILY 01/11/18 01/11/18 escitalopram oxalate [Lexapro] 10 mg PO DAILY 01/11/18 01/11/18 lisinopril 40 mg PO DAILY 01/11/18 01/11/18 metformin 500 mg BID 01/11/18 01/11/18 nateglinide 60 mg PO TID 01/11/18 01/11/18 sitagliptin [Januvia] 100 mg PO DAILY 01/11/18 01/11/18 topiramate [Topamax] 25 mg PO DAILY 01/11/18 01/11/18 Allergies Allergy/AdvReac Type Severity Reaction Status Date / Time morphine AdvReac Severe "doctor Verified 01/23/18 08:50 stated i was unconscious and shaking" Review of Systems Except as stated in HPI: all other systems reviewed are negative Constitutional Reports fever(s) Eyes Denies blurry vision ENT Reports nasal congestion Cardiovascular Reports chest pain Respiratory Reports cough and Reports dyspnea Gastrointestinal Denies nausea Genitourinary Denies dysuria Musculoskeletal Denies back pain Neurologic Denies confusion Psychiatric Denies confusion PMFSH History History Provided By: Patient Medical History Medical History Chest pain (Acute) Diabetes (Acute) High cholesterol (Acute) Hypertension (Acute) Kidney stone (Acute) Surgical History Surgical History AICD (automatic cardioverter/defibrillator) present (Acute) Hx of cardiac cath (Acute) Social History Social History Substance History: No History of Abuse Second Hand Smoke Exposure: No Smoking Status: Never smoker How Often Do You Have a Drink Containing Alcohol: Never Immunization History Tetanus Immunization: Unsure Hx Influenza Vaccine This Season: No Exam Const Other: Ill-appearing, coughing throughout exam HENMT Head: normocephalic and atraumatic Face and sinus: normal facial exam Eyes General: appearance normal, both eyes and all related structures Pupils: PERRL Chest Chest: normal inspection of the chest Resp Other: Speaking in complete sentences, coughing throughout exam, O2 sats 90% on room air Course breath sounds with expiratory wheeze bilaterally Cardio Rate: regular rate Rhythm: regular rhythm GI Inspection: non-distended Palpation: soft and nontender Skin General: no rashes or lesions noted Neuro General: alert, awake, oriented x3 and no focal motor deficits Extrem Other: No lower extremity edema Psych Affect: normal affect Course Initial Documented Vital Signs Temperature 99.1 F 01/23/18 08:44 Pulse Rate 92 H 01/23/18 08:44 Respiratory Rate 24 01/23/18 08:44 Blood Pressure 140/67 01/23/18 08:44 Pulse Oximetry 91 L 01/23/18 08:44 Last Documented Vital Signs Temperature 99.1 F 01/23/18 08:44 Pulse Rate 88 01/23/18 11:00 Respiratory Rate 16 01/23/18 11:00 Blood Pressure 176/89 H 01/23/18 11:00 Pulse Oximetry 94 L 01/23/18 11:00 Clinical Decision Support HEART Score Questions History: Moderately suspicious EKG: Non-specific repolarization disturbance Age: 65 years+ Risk Factors: 1-2 Risk Factors Initial Troponin: Normal Limit Heart Score HEART Score: 5 Medical Decision Making MDM Narrative Medical decision making narrative: Assessment: 82yM presenting with cough, fever, dyspnea, chest pain Plan: EKG and monitor Labs, including blood cultures and lactate CXR Nebs Gentle IV hydration (patient reports history of CHF and is already in mild respiratory distress) Antibiotics Reassess Addendum: Patient's workup shows mild BALDOMERO and hyperglycemia without anion gap, lactate elevated. Patient's CXR showed no focal consolidation but clinically patient appears to have pneumonia (productive cough, dyspnea, wheezing). This patient will need IV antibiotics, cardiac monitoring, serial troponin measurements, and re-evaluation at frequent intervals. I discussed the results of all labs and imaging with the patient as well as plan of care; he understands and agrees. Case discussed with Dr. Carrillo of internal medicine team. Differential Diagnosis Differential Diagnosis: Differential diagnosis includes, but is not limited to: pneumonia, CHF exacerbation, ACS, bronchitis/ URI, UTI, sepsis Lab Data Result diagrams: 01/23/18 09:00 01/23/18 09:00 Lab Results 01/23/18 01/23/18 01/23/18 Range/Units 09:00 09:00 09:00 CBC w Diff Auto diff final WBC 8.6 (4.0-11.0) th/mm3 RBC 4.33 L (4.50-5.90) mil/mm3 Hgb 13.3 (13.0-17.0) gm/dL Hct 40.9 (39.0-51.0) % MCV 94.4 (80.0-100.0) fL MCH 30.7 (27.0-34.0) pg MCHC 32.5 (32.0-36.0) % RDW 13.3 (11.6-17.2) % Plt Count 177 (150-450) th/mm3 MPV 8.7 (7.0-11.0) fL Neut % (Auto) 77.8 H (16.0-70.0) % Lymph % (Auto) 13.6 (9.0-44.0) % Andrews % (Auto) 6.6 (0.0-8.0) % Eos % (Auto) 1.6 (0.0-4.0) % Baso % (Auto) 0.4 (0.0-2.0) % Neut # (Auto) 6.7 (1.8-7.7) th/mm3 Lymph # (Auto) 1.2 (1.0-4.8) th/mm3 Andrews # (Auto) 0.6 (0.0-0.9) th/mm3 Eos # (Auto) 0.1 (0.0-0.4) th/mm3 Baso # (Auto) 0.0 (0.0-0.2) th/mm3 WBC Differential . Differential Comment . PT 10.4 (9.8-11.6) sec INR 1.0 Ratio Sodium 142 (136-145) meq/L Potassium 4.0 (3.5-5.1) meq/L Chloride 107 (98-107) meq/L Carbon Dioxide 26.6 (21.0-32.0) meq/L Anion Gap 8 (5-15) meq/L BUN 21 H (7-18) mg/dL Creatinine 1.60 H (0.60-1.30) mg/dL Estimated GFR 42 L (>89) mL/min POC Glucose (68-110) mg/dl Random Glucose 219 H (74-106) mg/dL Lactic Acid (0.4-2.0) mmol/L Calcium 8.4 L (8.5-10.1) mg/dL Magnesium 1.9 (1.5-2.5) mg/dL Total Bilirubin 0.3 (0.2-1.0) mg/dL AST 20 (15-37) U/L ALT 33 (12-78) U/L Alkaline Phosphatase 140 H (45-117) U/L Troponin I Less than 0.02 L (0.02-0.05) ng/mL Total Protein 7.5 (6.4-8.2) g/dL Albumin 3.5 (3.4-5.0) g/dL Ur Collection Type Urine Color (Yellw/Straw) Urine Clarity (Clear) Urine pH (5.0-8.5) Ur Specific [place] (1.002-1.035) Urine Protein (Neg-Trace) mg/dL Urine Glucose (UA) (Negative) mg/dL Urine Ketones (Negative) mg/dL Urine Occult Blood (Negative) Urine Nitrate (Negative) Urine Bilirubin (Negative) Urine Urobilinogen (Less than 2) mg/dL Ur Leukocyte Esterase (Negative) Urine RBC (0-3) /hpf Ur Squamous Epith Cells (0-5) /hpf Micro UA Comment Urine Culture Comments 01/23/18 01/23/18 01/23/18 Range/Units 09:00 09:25 11:56 CBC w Diff WBC (4.0-11.0) th/mm3 RBC (4.50-5.90) mil/mm3 Hgb (13.0-17.0) gm/dL Hct (39.0-51.0) % MCV (80.0-100.0) fL MCH (27.0-34.0) pg MCHC (32.0-36.0) % RDW (11.6-17.2) % Plt Count (150-450) th/mm3 MPV (7.0-11.0) fL Neut % (Auto) (16.0-70.0) % Lymph % (Auto) (9.0-44.0) % Andrews % (Auto) (0.0-8.0) % Eos % (Auto) (0.0-4.0) % Baso % (Auto) (0.0-2.0) % Neut # (Auto) (1.8-7.7) th/mm3 Lymph # (Auto) (1.0-4.8) th/mm3 Andrews # (Auto) (0.0-0.9) th/mm3 Eos # (Auto) (0.0-0.4) th/mm3 Baso # (Auto) (0.0-0.2) th/mm3 WBC Differential Differential Comment PT (9.8-11.6) sec INR Ratio Sodium (136-145) meq/L Potassium (3.5-5.1) meq/L Chloride (98-107) meq/L Carbon Dioxide (21.0-32.0) meq/L Anion Gap (5-15) meq/L BUN (7-18) mg/dL Creatinine (0.60-1.30) mg/dL Estimated GFR (>89) mL/min POC Glucose 198 H (68-110) mg/dl Random Glucose (74-106) mg/dL Lactic Acid 2.5 H (0.4-2.0) mmol/L Calcium (8.5-10.1) mg/dL Magnesium (1.5-2.5) mg/dL Total Bilirubin (0.2-1.0) mg/dL AST (15-37) U/L ALT (12-78) U/L Alkaline Phosphatase (45-117) U/L Troponin I (0.02-0.05) ng/mL Total Protein (6.4-8.2) g/dL Albumin (3.4-5.0) g/dL Ur Collection Type Clean catch Urine Color Yellow (Yellw/Straw) Urine Clarity Clear (Clear) Urine pH 6.0 (5.0-8.5) Ur Specific [place] 1.025 (1.002-1.035) Urine Protein 100 H (Neg-Trace) mg/dL Urine Glucose (UA) Negative (Negative) mg/dL Urine Ketones Negative (Negative) mg/dL Urine Occult Blood Small H (Negative) Urine Nitrate Negative (Negative) Urine Bilirubin Negative (Negative) Urine Urobilinogen 0.2 (Less than 2) mg/dL Ur Leukocyte Esterase Negative (Negative) Urine RBC 0-3 (0-3) /hpf Ur Squamous Epith Cells 0-5 (0-5) /hpf Micro UA Comment Culture not ind Urine Culture Comments Culture not ind Imaging Data Radiologist's impression: Chest X-Ray 01/23/18 09:07 CONCLUSION: Chronic appearing interstitial changes. No acute abnormality. Unchanged from previous of 03/10/2017. ECG Data Interpretation: Rate: 84 BPM Rhythm: Sinus [place]: Normal Intervals: RBBB, QTc 465 ms Q waves: III, aVF, V2 T waves: Inverted in V2 ST segments: No elevations or depressions Impression: Non-specific EKG, RBBB, no changes as compared to EKG from 2016. Discharge Plan Physicians Team ED Provider: Maryam Larry Primary Care Provider: NON STAFF,PROVIDER Rxs /Orders / Referrals /Forms Prescriptions: No Action amlodipine 5 mg Tablet 7.5 mg PO DAILY RF: 0 carvedilol 12.5 mg Tablet 12.5 mg PO BID RF: 0 carbamazepine 200 mg Capsule, Er Multiphase 12 Hr 200 mg PO BID RF: 0 metformin 500 mg Tablet 500 mg BID RF: 0 clopidogrel [Plavix] 75 mg Tablet 75 mg PO DAILY RF: 0 lisinopril 40 mg Tablet 40 mg PO DAILY RF: 0 escitalopram oxalate [Lexapro] 10 mg Tablet 10 mg PO DAILY RF: 0 sitagliptin [Januvia] 100 mg Tablet 100 mg PO DAILY RF: 0 topiramate [Topamax] 25 mg Tablet 25 mg PO DAILY RF: 0 nateglinide 60 mg Tablet 60 mg PO TID RF: 0 Discharge Interventions Interventions: Vital Signs Last Done: 01/23/18 11:00 Status ED Status: With Doctor
[2018-01-23 09:59] LABS: Anion Gap 8 meq/L (5-15); Chloride 107 meq/L (98-107); Sodium 142 meq/L (136-145); Total Protein 7.5 g/dL (6.4-8.2)
[2018-01-23 10:00] LABS: Alanine Aminotransferase 33 U/L (12-78); Alkaline Phosphatase 140 U/L (45-117); Aspartate Aminotransferase 20 U/L (15-37); Glomerular Filtration Rate 42 mL/min (>89)
[2018-01-23] MEDS ORDERED: Azithromycin Inj 500 MG in Sodium Chlor 0.9% Inj 250 ML IV.SIG ONE (10:04)
[2018-01-23 12:09] LABS: Bilirubin,Urine Negative (Negative); Clarity,Urine Clear (Clear); Color,Urine Yellow (Yellw/Straw); Glucose,Urine (UA) Negative (Negative); Leukocyte Esterase,Urine Negative (Negative); Nitrite,Urine Negative (Negative); Specific Gravity,Urine 1.025 (1.002-1.035); Urobilinogen,Urine 0.2 mg/dL (Less than 2)
[2018-01-23 12:21] LABS: RBC,Urine 0-3 /hpf (0-3); Squamous Epithelial Cell,Urine 0-5 /hpf (0-5)
[2018-01-23] MEDS ORDERED: Bisacodyl 10 MG Supp RECTAL PRN (12:30)
[2018-01-23] MEDS ORDERED: Dextrose 50% in Water 50 ML Vial IV.PUSH PRN (13:54)
[2018-01-23] MEDS: MethylPREDNISolone Sod Succinate Inj 40 MG/ML Vial IV.PUSH SCH ×2 (14:30→21:57)
[2018-01-23] MEDS: Heparin - SQ 10,000 UNITS/ML Vial SQ SCH ×2 (14:30→22:07)
--- NOTE | 2018-01-23 14:53 | P.HPIM ---
History of Present Illness Primary Care Physician: PROVIDER NON STAFF Chief Complaint: Shortness of breath and cough History of Present Illness: This patient is an 82-year-old gentleman was primary care doctor and was given antibiotics (Augmentin, Tessalon and handheld inhaler) he did not have any improvement so he came to the emergency room. He has been quite dyspneic here in coughing and unable to take deep breaths. He reports chest pain with deep breathing. On exam he has increase breath sounds and has shortness of breath. He has not had any fevers or chills. Patient reports he has no medical history but review of records that show he has a history of diabetes and and has a history of coronary disease with stents - Diagnosis (1) Diabetes mellitus type 2 in nonobese (2) Hypertension (3) Pneumonia Inpatient Certification: I certify that the inpatient services were ordered in accordance with Medicare regulations governing the order. This includes certification that hospital inpatient services are reasonable and necessary and in the case of services not specified as inpatient-only under 42 CFR 419.22(n), that they are appropriately provided as inpatient services in accordance to with the 2-midnight benchmark under 43 CFR 412.3(e) Estimated Total Length of Stay (Days): 4 Plans for Post Hospital Care: Not yet determined Review of Systems All other systems reviewed negative except as stated in HPI Respiratory: Reports chest congestion, Reports cough, Reports excessive phlegm production, Reports pain on inspiration PMFSH - History History Provided By: Patient - Medical History Medical History: Medical History (Last Reviewed 01/23/18 @ 14:17 by Monique Lomas RN) Chest pain Diabetes High cholesterol Hypertension Kidney stone - Surgical History Surgical History: Surgical History (Last Reviewed 01/23/18 @ 14:18 by Monique Lomas RN) AICD (automatic cardioverter/defibrillator) present Hx of cardiac cath - Tobacco History Second Hand Smoke Exposure: No Smoking Status: Never smoker - Alcohol History How Often Do You Have a Drink Containing Alcohol: Never - Substance Use History Substance History: No History of Abuse - Immunization History Tetanus Immunization: Unsure Hx Influenza Vaccine This Season: Yes Medications and Allergies Active Medications: Active Medications Albuterol (Duoneb Neb (Michael)) 1 ampul NEB Q6HR WHILE AWAKE NEB MICHAEL Last Admin: 01/23/18 14:31 Dose: 1 ampul Albuterol (Duoneb Neb (Prn)) 1 ampul NEB Q2HR NEB PRN PRN Reason: DYSPNEA Amlodipine Besylate (Norvasc) 7.5 mg PO DAILY [facility] Bisacodyl (Dulcolax Supp) 10 mg RECTAL DAILY PRN PRN Reason: SEVERE CONSITIPATION Carbamazepine (Tegretol) 200 mg PO BID [facility] Carvedilol (Coreg) 12.5 mg PO BID [facility] Dextrose (D50w Vial) 50 ml IV.PUSH UNSCH PRN PRN Reason: PER HYPOGLYCEMIA PROTOCOL Escitalopram Oxalate (Lexapro) 10 mg PO DAILY [facility] Glucagon (Glucagon Inj) 1 mg OTHER PRN PRN PRN Reason: for Hypoglycemia Protocol Heparin Sodium (Porcine) (Heparin Inj) 5,000 units SQ DAILY@1100,2300 [facility] Last Admin: 01/23/18 14:30 Dose: 5,000 units Azithromycin 500 mg/ Sodium (Chloride) 250 mls @ 250 mls/hr IV.SIG Q24H MICHAEL Ceftriaxone Sodium 1,000 mg/ (Sodium Chloride) 100 mls @ 200 mls/hr IV.SIG Q24H MICHAEL Lactated Ringer's (Lr 1000 Ml Inj) 1,000 mls @ 100 mls/hr IV.CONT .Q10H [facility] Last Admin: 01/23/18 14:30 Dose: 100 mls/hr Insulin Aspart (Novolog Insulin Correctional Sugar Inj) 0 unit SQ ACHS AND 3AM MICHAEL; Protocol Lactulose (Lactulose Liq) 30 ml PO DAILY PRN PRN Reason: SEVERE CONSITIPATION Lisinopril (Prinivil) 40 mg PO DAILY [facility] Methylprednisolone Sodium Succinate (Solumedrol Inj) 40 mg IV.PUSH Q8HR [facility] Last Admin: 01/23/18 14:30 Dose: 40 mg Patient Own: ( Nateglinide [ Nateglinide] 60 Mg) 0 each PO TID [facility] Temazepam (Restoril) 15 mg PO HS PRN PRN Reason: INSOMNIA Topiramate (Topamax) 25 mg PO DAILY [facility] Allergies Allergy/AdvReac Type Severity Reaction Status Date / Time morphine AdvReac Severe "doctor Verified 01/23/18 08:50 stated i was unconscious and shaking" Home Medications Medication Instructions Recorded Confirmed Type amlodipine 7.5 mg PO DAILY 01/11/18 01/23/18 History carbamazepine 200 mg PO BID 01/11/18 01/23/18 History carvedilol 12.5 mg PO BID 01/11/18 01/23/18 History escitalopram oxalate [Lexapro] 10 mg PO DAILY 01/11/18 01/23/18 History lisinopril 40 mg PO DAILY 01/11/18 01/23/18 History metformin 500 mg BID 01/11/18 01/23/18 History nateglinide 60 mg PO TID 01/11/18 01/23/18 History sitagliptin [Januvia] 100 mg PO DAILY 01/11/18 01/23/18 History topiramate [Topamax] 25 mg PO DAILY 01/11/18 01/23/18 History Exam Vital signs: Vital Signs 01/23/18 08:44 01/23/18 08:50 01/23/18 09:17 Temperature 99.1 F Pulse Rate 92 H 81 85 Respiratory Rate 24 21 Blood Pressure 140/67 Pulse Oximetry 91 L 97 94 L 01/23/18 10:01 01/23/18 11:00 01/23/18 11:30 Temperature Pulse Rate 78 88 84 Respiratory Rate 16 16 20 Blood Pressure 154/82 H 176/89 H 174/89 H Pulse Oximetry 94 L 94 L 94 L 01/23/18 12:00 01/23/18 13:00 01/23/18 13:39 Temperature Pulse Rate 87 92 H Respiratory Rate 16 20 Blood Pressure 176/89 H 163/87 H Pulse Oximetry 94 L 94 L 95 01/23/18 14:12 Temperature 97.7 F Pulse Rate 93 H Respiratory Rate 20 Blood Pressure 194/103 H Pulse Oximetry 94 L Intake & Output 01/22/18 01/23/18 01/23/18 18:59 06:59 18:59 Intake Total 450 / 450 Balance 450 / 450 Weight 92.2 kg Intake: IV 450 / 450 Azithromycin Inj 500 MG In NS 250 / 250 Inj 250 ML @ 250 mls/hr IV.SIG ONCE ONE Rx#:[id number] NS Inj 1,000 ML @ Wide Open IV. 100 / 100 SIG BOLUS ONE Rx#:[id number] Rocephin Inj 1,000 MG In NS Inj 100 / 100 100 ML @ 200 mls/hr IV.SIG ONCE ONE Rx#:[id number] Other: Weight On Admission 92.2 kg Narrative: GENERAL: Patient coughing and short of breath with dyspnea with minimal exertion SKIN: Warm and dry. No rashes or ecchymotic injuries EYES: Pupils equal and round. No scleral icterus. No injection or drainage. ENT: External ear exam normal. No acute nasal bleeding or discharge. Mucous membranes pink and moist. CARDIOVASCULAR: Regular rate and rhythm. No murmurs gallops or rubs appreciated RESPIRATORY: Increased work of breathing and crackles with rhonchorous breath sounds bilaterally. GASTROINTESTINAL: Abdomen soft, non-tender, nondistended. Hepatic and splenic margins not palpable. MUSCULOSKELETAL: Extremities without clubbing, cyanosis, or edema. No obvious deformities. NEUROLOGICAL: Awake and alert. No obvious cranial nerve deficits. Motor grossly within normal limits. Five out of 5 muscle strength in the arms and legs. Normal speech. Results - Labs CBC & Chem 7: 01/23/18 09:00 01/23/18 09:00 Labs: Short CBC 01/23/18 Range/Units 09:00 WBC 8.6 (4.0-11.0) th/mm3 Hgb 13.3 (13.0-17.0) gm/dL Hct 40.9 (39.0-51.0) % Plt Count 177 (150-450) th/mm3 BMP 01/23/18 09:00 Sodium 142 Potassium 4.0 Chloride 107 Carbon Dioxide 26.6 BUN 21 H Creatinine 1.60 H Calcium 8.4 L Cardiac Enzymes 01/23/18 01/23/18 Range/Units 09:00 11:56 Troponin I Less than 0.02 L Less than 0.02 L (0.02-0.05) ng/mL Liver Function 01/23/18 Range/Units 09:00 Total Bilirubin 0.3 (0.2-1.0) mg/dL AST 20 (15-37) U/L ALT 33 (12-78) U/L Alkaline Phosphatase 140 H (45-117) U/L Albumin 3.5 (3.4-5.0) g/dL Urine 01/23/18 Range/Units 11:56 Urine Color Yellow (Yellw/Straw) Urine Clarity Clear (Clear) Urine pH 6.0 (5.0-8.5) Ur Specific [place] 1.025 (1.002-1.035) Urine Protein 100 H (Neg-Trace) mg/dL Urine Glucose (UA) Negative (Negative) mg/dL - Imaging Impressions Chest X-Ray 01/23/18 09:07 CONCLUSION: Chronic appearing interstitial changes. No acute abnormality. Unchanged from previous of 03/10/2017. Caprini VTE Risk Assessment Caprini VTE Risk Assessment: Moderate/High Risk (score >= 2) Caprini Risk Assessment Model: Point Value = 1 Point Value = 2 Point Value = 3 Point Value = 5 Age 41-60 Minor surgery BMI > 25 kg/m2 Swollen legs Varicose veins or History of unexplained or recurrent spontaneous Oral contraceptives or hormone replacement Sepsis (< 1 month) Serious lung disease, including pneumonia (< 1 month) Abnormal pulmonary function Acute myocardial infarction Congestive heart failure (< 1 month) History of inflammatory bowel disease Medical patient at bed rest Age 61-74 Arthroscopic surgery Major open surgery (> 45 min) Laparoscopic surgery (> 45 min) Malignancy Confined to bed (> 72 hours) Immobilizing plaster cast Central venous access Age >= 75 History of VTE Family history of VTE Factor V Leiden Prothrombin [id number] Lupus anticoagulant Anticardiolipin antibodies Elevated serum homocysteine Heparin-induced thrombocytopenia Other congenital or acquired thrombophilia Stroke (< 1 month) Elective arthroplasty Hip, pelvis, or leg fracture Acute spinal cord injury (< 1 month) Prophylaxis Regimen: Total Risk Factor Score Risk Level Prophylaxis Regimen 0-1 Low Early ambulation 2 Moderate Order ONE of the following: *Sequential Compression Device (SCD) *Heparin 5000 units SQ BID 3-4 Higher Order ONE of the following medications: *Heparin 5000 units SQ TID *Enoxaparin/Lovenox 40 mg SQ daily (WT < 150 kg, CrCl > 30 mL/min) *Enoxaparin/Lovenox 30 mg SQ daily (WT < 150 kg, CrCl > 10-29 mL/min) *Enoxaparin/Lovenox 30 mg SQ BID (WT < 150 kg, CrCl > 30 mL/min) AND/OR *Sequential Compression Device (SCD) 5 or more Highest Order ONE of the following medications: *Heparin 5000 units SQ TID (Preferred with Epidurals) *Enoxaparin/Lovenox 40 mg SQ daily (WT < 150 kg, CrCl > 30 mL/min) *Enoxaparin/Lovenox 30 mg SQ daily (WT < 150 kg, CrCl > 10-29 mL/min) *Enoxaparin/Lovenox 30 mg SQ BID (WT < 150 kg, CrCl > 30 mL/min) AND *Sequential Compression Device (SCD) Assessment and Plan - Assessment (1) Diabetes mellitus type 2 in nonobese Code(s): E11.9 - Type 2 diabetes mellitus without complications Status: Acute Plan: Stable on home medications, we will hold metformin while inpatient, he was sliding scale and ADA diet (2) Hypertension Code(s): I10 - Essential (primary) hypertension Status: Acute Plan: Currently controlled with lisinopril and amlodipine which we will continue, also continue carvedilol t (3) Pneumonia Code(s): J18.9 - Pneumonia, unspecified organism Status: Acute Plan: Patient appears to be and hypoxemic respiratory failure patient 91% on room air and tachypnea Patient x-ray appears normal at this time however patient does act quite suspiciously for immediate heart pneumonia which we will treat. With IV antibiotics, bronchodilators and IV steroids given his symptoms. Patient also admits he had some cough after eating and a swallow eval is pending H&P: Quality - VTE Deep Vein Thrombosis/Pulmonary Embolism Present on Admission: No
[2018-01-23] MEDS: Insulin NovoLOG Aspart Correctional Sugar Inj SQ SCH ×2 (16:23→22:01)
[2018-01-23] MEDS ORDERED: NATEGLINIDE 60 MG PO SCH (18:00)
--- NOTE | 2018-01-23 20:22 | ECG ---
Date Performed: 01/23/2018 Time Performed: 09:20:40 PTAGE: 82 years EKG: Sinus rhythm WITH OCCASIONAL SUPRAVENTRICULAR PREMATURE COMPLEXES RIGHT BUNDLE BRANCH BLOCK LEFT ANTERIOR FASCICU LAR BLOCK SEPTAL MYOCARDIAL INFARCTION ABNORMAL ECG PREVIOUS TRACING : 03/10/2017 17.30 No significant change DOCTOR: Andrew Trotter Interpretating Date/Time 01/23/2018 20:20:02
[2018-01-23] MEDS: Carvedilol 12.5 MG Tablet PO SCH (21:59)
[2018-01-23] MEDS: carBAMazepine 200 MG Tablet PO SCH (22:06)
[2018-01-23] MEDS ORDERED: Benzonatate 100 MG Capsule PO ONE (22:40)
[2018-01-23] MEDS: Acetaminophen 325 MG Tablet PO PRN (23:25)
[2018-01-24] MEDS: Temazepam 15 MG Capsule PO PRN (01:07)
[2018-01-24] MEDS: Insulin NovoLOG Aspart Correctional Sugar Inj SQ SCH ×5 (05:27→22:44)
[2018-01-24] MEDS: MethylPREDNISolone Sod Succinate Inj 40 MG/ML Vial IV.PUSH SCH (05:34)
[2018-01-24] MEDS: Acetaminophen 325 MG Tablet PO PRN ×2 (05:38→20:01)
[2018-01-24] MEDS ORDERED: Benzonatate 100 MG Capsule PO PRN (07:28)
[2018-01-24] MEDS: Escitalopram 10 MG Tablet PO SCH (08:17)
[2018-01-24] MEDS: Lisinopril 20 MG Tablet PO SCH (08:17)
[2018-01-24] MEDS: amLODIPine 5 MG Tablet PO SCH (08:17)
[2018-01-24] MEDS: carBAMazepine 200 MG Tablet PO SCH ×2 (08:17→22:34)
[2018-01-24] MEDS: Topiramate 25 MG Tablet PO SCH (08:18)
[2018-01-24] MEDS: Carvedilol 12.5 MG Tablet PO SCH ×2 (08:18→22:34)
--- NOTE | 2018-01-24 10:46 | P.PN ---
Subjective Interval history: Pt is resting comfortably in hospital bed. Reports 5/10 constant pressure like CP that does not radiate. Graciela diaphoresis, N/V. States that SOB has gotten better. Pt is currently 95% on 2 L O2. Physical Exam Vital signs: Vital Signs 01/23/18 11:00 01/23/18 11:30 01/23/18 12:00 Temperature Pulse Rate 88 84 87 Respiratory Rate 16 20 16 Blood Pressure 176/89 H 174/89 H 176/89 H Pulse Oximetry 94 L 94 L 94 L 01/23/18 13:00 01/23/18 13:39 01/23/18 14:12 Temperature 97.7 F Pulse Rate 92 H 93 H Respiratory Rate 20 20 Blood Pressure 163/87 H 194/103 H Pulse Oximetry 94 L 95 94 L 01/23/18 16:00 01/23/18 19:00 01/23/18 20:00 Temperature 98.5 F 96.6 F L Pulse Rate 69 88 Respiratory Rate 22 18 Blood Pressure 130/68 153/77 H Pulse Oximetry 99 93 L 94 L 01/23/18 20:50 01/23/18 22:00 01/24/18 00:00 Temperature 97.5 F L Pulse Rate 84 80 Respiratory Rate 20 18 Blood Pressure 171/81 H Pulse Oximetry 94 L 96 94 L 01/24/18 04:00 01/24/18 06:34 01/24/18 07:45 Temperature 97.4 F L Pulse Rate 77 74 Respiratory Rate 18 24 Blood Pressure 124/75 Pulse Oximetry 95 95 01/24/18 07:48 01/24/18 08:00 01/24/18 09:32 Temperature 96.2 F L Pulse Rate 74 76 Respiratory Rate 18 Blood Pressure 163/92 H Pulse Oximetry 92 L 95 Intake & Output 01/23/18 01/24/18 01/24/18 18:59 06:59 18:59 Intake Total 915 / 915 595 / 595 Output Total 600 / 600 Balance 915 / 915 -5 / -5 Weight 92.2 kg 92.2 kg Intake: IV 915 / 915 235 / 235 LR 1000 mL Inj 1,000 ML @ 100 465 / 465 235 / 235 mls/hr IV.CONT .Q10H [facility] Rx#: [id number] Azithromycin Inj 500 MG In NS 250 / 250 Inj 250 ML @ 250 mls/hr IV.SIG ONCE ONE Rx#:[id number] NS Inj 1,000 ML @ Wide Open IV. 100 / 100 SIG BOLUS ONE Rx#:[id number] Rocephin Inj 1,000 MG In NS Inj 100 / 100 100 ML @ 200 mls/hr IV.SIG ONCE ONE Rx#:[id number] Oral 360 / 360 Output: Urine 600 / 600 Other: # Voids 2 Weight On Admission 92.2 kg Results - Labs CBC & Chem 7: 01/23/18 09:00 01/23/18 09:00 Laboratory Results - last 24 hr 01/23/18 01/23/18 01/23/18 11:56 11:56 13:17 POC Glucose Lactic Acid 2.8 H Troponin I Less than 0.02 L Ur Collection Type Clean catch Urine Color Yellow Urine Clarity Clear Urine pH 6.0 Ur Specific [place] 1.025 Urine Protein 100 H Urine Glucose (UA) Negative Urine Ketones Negative Urine Occult Blood Small H Urine Nitrate Negative Urine Bilirubin Negative Urine Urobilinogen 0.2 Ur Leukocyte Esterase Negative Urine RBC 0-3 Ur Squamous Epith Cells 0-5 Micro UA Comment Culture not ind Urine Culture Comments Culture not ind 01/23/18 01/23/18 01/24/18 16:17 21:40 03:24 POC Glucose 209 H 253 H 166 H Lactic Acid Troponin I Ur Collection Type Urine Color Urine Clarity Urine pH Ur Specific [place] Urine Protein Urine Glucose (UA) Urine Ketones Urine Occult Blood Urine Nitrate Urine Bilirubin Urine Urobilinogen Ur Leukocyte Esterase Urine RBC Ur Squamous Epith Cells Micro UA Comment Urine Culture Comments Assessment and Plan - Plan Pneumonia: managed with bronchodilators. pt is currently on ceftriaxone 1000 mg IV, and Azithromycin inj 500 mg. pt is breathing comfortably. O2 level is 95% on 2 L oxygen. cultures are pending Chest pain: obtain serial Troponin obtain EKG Diabetes Mellitus: monitor with ADA diet and sliding scale. Metformin has been withheld monitor BG levels Hypertension:chronic continue home medication in addition to carvedilol
[2018-01-24] MEDS: MethylPREDNISolone Sod Succinate Inj 125 MG/2 ML Vial IV.PUSH SCH ×2 (11:13→16:22)
[2018-01-24] MEDS: Heparin - SQ 10,000 UNITS/ML Vial SQ SCH ×2 (11:14→22:45)
[2018-01-24] MEDS: Azithromycin Inj 500 MG in Sodium Chlor 0.9% Inj 250 ML IV.SIG SCH (11:15)
[2018-01-24 11:46] LABS: Chloride 105 meq/L (98-107); Potassium 4.3 meq/L (3.5-5.1); Sodium 138 meq/L (136-145)
[2018-01-24 11:49] LABS: Anion Gap 8 meq/L (5-15); Calcium 8.4 mg/dL (8.5-10.1); Carbon Dioxide 25.1 meq/L (21.0-32.0)
[2018-01-24 11:50] LABS: Blood Urea Nitrogen 19 mg/dL (7-18); Glucose,Random 256 mg/dL (74-106)
[2018-01-24 11:53] LABS: Glomerular Filtration Rate 49 mL/min (>89)
[2018-01-24 13:13] LABS: ABG Base Excess -1.7 mmol/L (-2-2); ABG PCO2 44 mmHg (38-42); ABG PO2 72 mmHg (61-120)
[2018-01-24] MEDS: guaiFENesin/Dextromethorphan 200 MG/20 MG 10 ML UDC PO PRN ×2 (16:22→20:02)
--- NOTE | 2018-01-24 17:43 | CT ---
EXAM DATE: 01/24/2018 5:06 PM EDT AGE/SEX: 82 years / Male INDICATIONS: Short of breath. Cough. Chest pain with deep breaths. CLINICAL DATA: This is the patient's initial encounter. Patient reports that signs and symptoms have been present for 4 - 6 days and indicates a pain score of 4/10. MEDICAL/SURGICAL HISTORY: Diabetes. Renal calculi. Cardiovascular disease. Hypertension. Pacema ker. RADIATION DOSE: 14.90 CTDI (mGy) COMPARISON: [facility] [place], CT PULMONARY ANGIOGRAM, 08/06/2016. . TECHNIQUE: Multiple contiguous axial images were obtained through the chest without contrast. Image s were obtained in suspended respiration using multiple row detector helical technique. Using automa roc exposure control and adjustment of the mA and/or kV according to patient size, radiation dose was kept as low as reasonably achievable to obtain optimal diagnostic quality images. DICOM format imag e data is available electronically for review and comparison. FINDINGS: Lungs: There are 2 tiny 4 mm pulmonary nodules in the left midlung. Otherwise, the lungs are grossly clear. No acute pulmonary infiltrates are demonstrated. Mediastinum: There is good visualization of the great vessels of the middle mediastinum. No evidenc e of mediastinal or hilar adenopathy/mass. Pleurae: No evidence of focal thickening or pleural effusion. Axillae: Unremarkable. Bony Structures: Primary bony degenerative changes. Miscellaneous: The examination was extended to include the upper abdomen, and both adrenal glands ar e normal in size and configuration. CONCLUSION: 1. No acute pulmonary infiltrates. 2. There are 2 tiny 4 mm pulmonary nodule left midlung. Recommend a follow-up noncontrast CT thorax in 6 months to check stability. Electronically signed by: Duong Herring MD 01/24/2018 5:42 PM EDT
[2018-01-24] MEDS ORDERED: guaiFENesin/Dextromethorphan 200 MG/20 MG 10 ML UDC PO ONE (21:15)
[2018-01-24] MEDS ORDERED: guaiFENesin/Codeine Syrup 200 MG/20 MG 10 ML UDC PO ONE (22:30)
[2018-01-25] MEDS: MethylPREDNISolone Sod Succinate Inj 125 MG/2 ML Vial IV.PUSH SCH ×6 (00:52→19:23)
[2018-01-25] MEDS: Temazepam 15 MG Capsule PO PRN ×2 (00:54→23:56)
[2018-01-25] MEDS: Insulin NovoLOG Aspart Correctional Sugar Inj SQ SCH ×5 (04:02→21:34)
[2018-01-25] MEDS: Lisinopril 20 MG Tablet PO SCH (08:44)
[2018-01-25] MEDS: Escitalopram 10 MG Tablet PO SCH (08:44)
[2018-01-25] MEDS: amLODIPine 5 MG Tablet PO SCH (08:45)
[2018-01-25] MEDS: Topiramate 25 MG Tablet PO SCH (08:45)
[2018-01-25] MEDS: Carvedilol 12.5 MG Tablet PO SCH ×2 (08:45→21:18)
[2018-01-25] MEDS: carBAMazepine 200 MG Tablet PO SCH ×2 (08:45→21:18)
[2018-01-25] MEDS: guaiFENesin/Dextromethorphan 200 MG/20 MG 10 ML UDC PO PRN (10:12)
[2018-01-25] MEDS: Azithromycin Inj 500 MG in Sodium Chlor 0.9% Inj 250 ML IV.SIG SCH (10:12)
[2018-01-25] MEDS: Heparin - SQ 10,000 UNITS/ML Vial SQ SCH ×2 (10:16→23:15)
[2018-01-25] MEDS: Acetaminophen 325 MG Tablet PO PRN ×2 (11:04→17:59)
--- NOTE | 2018-01-25 11:25 | XR ---
EXAM DATE: 01/25/2018 11:18 AM EDT AGE/SEX: 82 years / Male INDICATIONS: Cough and shortness of breath. CLINICAL DATA: This is the patient's subsequent encounter. Patient reports that signs and symptoms h ave been present for 4 - 6 days and indicates a pain score of 0/10. MEDICAL/SURGICAL HISTORY: Congestive heart failure. Diabetes mellitus type II. Cerebrovascular disease. Renal calculi. Diabetes. Hypertension. Myocardial infarction. Pacemaker. Cardiac stent. COMPARISON: [facility], CHEST 1V SINGLE AP, 01/23/2018. . FINDINGS: Mild diffuse interstitial prominence. No new focal pleural or parenchymal opacities. Right-sided shun t tubing again noted. Stable dual lead pacemaker. The cardiomediastinal contours are stable. Osseous structures are intact. CONCLUSION: 1. No acute abnormality or significant interval change. Electronically signed by: Beto Walker MD 01/25/2018 11:24 AM EDT
[2018-01-25] MEDS: guaiFENesin/Codeine Syrup 200 MG/20 MG 10 ML UDC PO PRN (14:21)
--- NOTE | 2018-01-25 15:00 | P.DCO ---
- Physical Therapy Order: Evaluate and treat, Improve ambulation, Strength and gait training - Occupational Therapy Order: Evaluate and treat, Improve ADL, Gross motor coordination - Home Health Nursing Order: Medical education, Signs/symptoms of disease process, Diabetic education , Nursing assessment with vital signs - Certification I have seen patient Sheri Yousif on 01/25/18. My clinical findings support the need for the requested home health care services because: Patient has SOB I certify that my clinical findings support that this patient is homebound because: Hx COPD - exertion dyspnea/weakness, Unsteady gait/balance
--- NOTE | 2018-01-25 17:38 | P.PN ---
Subjective Interval history: 82-year-old male with pneumonia. Today he complains of coughing and shortness of breath which is not worse but seems to not be improving. She denies fevers. Physical Exam Vital signs: Vital Signs 01/24/18 17:36 01/24/18 19:19 01/24/18 20:00 Temperature 97.8 F Pulse Rate 86 91 H 84 Respiratory Rate 22 22 18 Blood Pressure 181/86 H Pulse Oximetry 94 L 93 L 01/24/18 22:35 01/24/18 22:54 01/25/18 00:00 Temperature 97.4 F L Pulse Rate 82 82 Respiratory Rate 5 L 17 18 Blood Pressure 147/82 H Pulse Oximetry 95 01/25/18 04:00 01/25/18 07:25 01/25/18 08:00 Temperature 97.6 F 98.4 F Pulse Rate 60 79 84 Respiratory Rate 18 18 19 Blood Pressure 169/90 H 189/101 H Pulse Oximetry 96 94 L 95 01/25/18 09:12 01/25/18 12:00 01/25/18 15:08 Temperature 98.0 F Pulse Rate 76 86 72 Respiratory Rate 19 18 Blood Pressure 146/89 H Pulse Oximetry 94 L 01/25/18 16:00 01/25/18 16:40 Temperature 98.0 F Pulse Rate 65 Respiratory Rate 20 Blood Pressure 175/87 H 158/98 H Pulse Oximetry 96 Intake & Output 01/24/18 01/25/18 01/25/18 18:59 06:59 18:59 Intake Total 2200 / 2200 2830 / 2830 1350 / 1350 Output Total 1200 / 1200 1000 / 1000 Balance 1000 / 1000 1830 / 1830 1350 / 1350 Weight 92.3 kg Intake: IV 1000 / 1000 2350 / 2350 1350 / 1350 LR 1000 mL Inj 1,000 ML @ 100 1000 / 1000 2000 / 2000 1000 / 1000 mls/hr IV.CONT .Q10H [facility] Rx#: [id number] Azithromycin Inj 500 MG In NS 250 / 250 250 / 250 Inj 250 ML @ 250 mls/hr IV.SIG Q24H [facility] Rx#:[id number] Rocephin Inj 1,000 MG In NS Inj 100 / 100 100 / 100 100 ML @ 200 mls/hr IV.SIG Q24H [facility] Rx#:[id number] Oral 1200 / 1200 480 / 480 Output: Urine 1200 / 1200 1000 / 1000 Other: Date of Last Bowel Movement 01/24/18 01/24/18 # Bowel Movements 1 Narrative: GENERAL: Alert and oriented 3, constantly coughing SKIN: Warm and dry. HEAD: Normocephalic. EYES: No scleral icterus. No injection or drainage. NECK: Supple, trachea midline. No JVD or lymphadenopathy. CARDIOVASCULAR: Regular rate and rhythm without murmurs, gallops, or rubs. RESPIRATORY: Congestive sounds and poor air exchange throughout lungs. Constant nonproductive cough GASTROINTESTINAL: Abdomen soft, non-tender, nondistended. MUSCULOSKELETAL: No cyanosis, or edema. BACK: Nontender without obvious deformity. No CVA tenderness. Results - Labs CBC & Chem 7: 01/23/18 09:00 01/24/18 11:25 Laboratory Results - last 24 hr 01/24/18 01/25/18 01/25/18 22:05 02:49 10:49 POC Glucose 360 H 95 349 H 01/25/18 16:25 POC Glucose 471 H* Microbiology 01/23/18 09:05 Blood - Peripheral Aerobic Blood Culture - Preliminary No growth in 2 days 01/23/18 09:05 Blood - Peripheral Anaerobic Blood Culture - Preliminary No growth in 2 days 01/23/18 09:00 Blood - Peripheral Aerobic Blood Culture - Preliminary No growth in 2 days 01/23/18 09:00 Blood - Peripheral Anaerobic Blood Culture - Preliminary No growth in 2 days - Imaging Impressions Chest CT 01/24/18 00:00 CONCLUSION: 1. No acute pulmonary infiltrates. 2. There are 2 tiny 4 mm pulmonary nodule left midlung. Recommend a follow-up noncontrast CT thorax in 6 months to check stability. Chest X-Ray 01/25/18 00:00 CONCLUSION: 1. No acute abnormality or significant interval change. Assessment and Plan - Assessment (1) Pneumonia Code(s): J18.9 - Pneumonia, unspecified organism Status: Acute Plan: Patient appears to be and hypoxemic respiratory failure patient 91% on room air and tachypnea Patient x-ray appears normal at this time however patient does act quite suspiciously for immediate heart pneumonia which we will treat. With IV antibiotics, bronchodilators and IV steroids given his symptoms. Patient also admits he had some cough after eating and a swallow eval is pending (2) Diabetes mellitus type 2 in nonobese Code(s): E11.9 - Type 2 diabetes mellitus without complications Status: Acute Plan: Stable on home medications, we will hold metformin while inpatient, he was sliding scale and ADA diet - Plan Pneumonia Slow improvement after 2 days DuoNeb's increased to every 4 hours scheduled, budesonide nebs added Continue with IV Solu-Medrol 60 mg every 6 hours Robitussin changed to Robitussin with codeine IV fluids stopped Type 2 diabetes with hyperglycemia Steroid effect has increased his sugars to the 400s Increase sliding scale insulin for more adequate coverage Continue with diabetic diet h/o hypertension Continue carvedilol home dose
[2018-01-25] MEDS ORDERED: Dextrose 50% in Water 50 ML Vial IV.PUSH PRN (18:01)
--- NOTE | 2018-01-25 19:17 | ECG ---
Date Performed: 01/24/2018 Time Performed: 11:30:16 PTAGE: 82 years EKG: Sinus rhythm RIGHT BUNDLE BRANCH BLOCK LEFT ANTERIOR FASCICULAR BLOCK ABNORMAL ECG PREVIOUS TRACING : 01/23/2018 09.20 Since the previous tracing, no significant change noted DOCTOR: Tony Wood Interpretating Date/Time 01/25/2018 19:16:19
[2018-01-26] MEDS: MethylPREDNISolone Sod Succinate Inj 125 MG/2 ML Vial IV.PUSH SCH ×4 (00:44→19:00)
[2018-01-26] MEDS: Insulin NovoLOG Aspart Correctional Sugar Inj SQ SCH ×5 (01:05→22:28)
[2018-01-26] MEDS: amLODIPine 5 MG Tablet PO SCH (08:49)
[2018-01-26] MEDS: Lisinopril 20 MG Tablet PO SCH (08:49)
[2018-01-26] MEDS: Topiramate 25 MG Tablet PO SCH (08:51)
[2018-01-26] MEDS: carBAMazepine 200 MG Tablet PO SCH ×2 (08:51→20:39)
[2018-01-26] MEDS: Escitalopram 10 MG Tablet PO SCH (08:51)
[2018-01-26] MEDS: Carvedilol 12.5 MG Tablet PO SCH ×2 (08:51→20:38)
[2018-01-26] MEDS: Azithromycin Inj 500 MG in Sodium Chlor 0.9% Inj 250 ML IV.SIG SCH (10:20)
[2018-01-26] MEDS: guaiFENesin/Codeine Syrup 200 MG/20 MG 10 ML UDC PO PRN (10:46)
[2018-01-26] MEDS: Acetaminophen 325 MG Tablet PO PRN ×2 (10:46→20:03)
[2018-01-26] MEDS: Heparin - SQ 10,000 UNITS/ML Vial SQ SCH ×2 (13:20→22:29)
--- NOTE | 2018-01-26 17:40 | P.PN ---
Subjective Interval history: Patient reports that he rested more comfortably overnight, his cough is better controlled and he is breathing with less effort. Physical Exam Vital signs: Vital Signs 01/25/18 19:00 01/25/18 20:00 01/25/18 20:10 Temperature 96.7 F L Pulse Rate 82 80 Respiratory Rate 18 20 Blood Pressure 179/88 H Pulse Oximetry 95 95 01/25/18 21:14 01/25/18 23:39 01/26/18 00:00 Temperature 96.6 F L Pulse Rate 68 60 Respiratory Rate 18 18 Blood Pressure 174/91 H Pulse Oximetry 95 94 L 01/26/18 03:59 01/26/18 04:00 01/26/18 07:28 Temperature 96.3 F L Pulse Rate 60 61 68 Respiratory Rate 18 18 18 Blood Pressure 190/93 H Pulse Oximetry 95 95 01/26/18 08:00 01/26/18 11:00 01/26/18 12:00 Temperature 96.3 F L 96.8 F L Pulse Rate 70 76 65 Respiratory Rate 20 18 20 Blood Pressure 187/95 H 151/72 H Pulse Oximetry 92 L 95 01/26/18 15:00 01/26/18 16:00 Temperature 96.5 F L Pulse Rate 65 62 Respiratory Rate 18 21 Blood Pressure 189/95 H Pulse Oximetry 95 Intake & Output 01/25/18 01/26/18 01/26/18 18:59 06:59 18:59 Intake Total 2310 / 2310 240 / 240 Output Total 1400 / 1400 450 / 450 Balance 910 / 910 -210 / -210 Weight 92.2 kg Intake: IV 1350 / 1350 LR 1000 mL Inj 1,000 ML @ 100 1000 / 1000 mls/hr IV.CONT .Q10H [facility] Rx#: [id number] Azithromycin Inj 500 MG In NS 250 / 250 Inj 250 ML @ 250 mls/hr IV.SIG Q24H [facility] Rx#:[id number] Rocephin Inj 1,000 MG In NS Inj 100 / 100 100 ML @ 200 mls/hr IV.SIG Q24H [facility] Rx#:[id number] Oral 960 / 960 240 / 240 Output: Urine 1400 / 1400 450 / 450 Other: Date of Last Bowel Movement 01/24/18 # Bowel Movements 3 Narrative: GENERAL: Alert and oriented 3, constantly coughing SKIN: Warm and dry. HEAD: Normocephalic. EYES: No scleral icterus. No injection or drainage. NECK: Supple, trachea midline. No JVD or lymphadenopathy. CARDIOVASCULAR: Regular rate and rhythm without murmurs, gallops, or rubs. RESPIRATORY: Congestive sounds and poor air exchange is about 20% improved compared to yesterday. GASTROINTESTINAL: Abdomen soft, non-tender, nondistended. MUSCULOSKELETAL: No cyanosis, or edema. BACK: Nontender without obvious deformity. No CVA tenderness. Results - Labs CBC & Chem 7: 01/23/18 09:00 01/24/18 11:25 Laboratory Results - last 24 hr 01/25/18 01/26/18 01/26/18 21:17 03:00 08:13 POC Glucose 231 H 206 H 241 H 01/26/18 13:27 POC Glucose 358 H Microbiology 01/23/18 09:05 Blood - Peripheral Aerobic Blood Culture - Preliminary No growth in 3 days 01/23/18 09:05 Blood - Peripheral Anaerobic Blood Culture - Preliminary No growth in 3 days 01/23/18 09:00 Blood - Peripheral Aerobic Blood Culture - Preliminary No growth in 3 days 01/23/18 09:00 Blood - Peripheral Anaerobic Blood Culture - Preliminary No growth in 3 days Assessment and Plan - Assessment (1) Pneumonia Code(s): J18.9 - Pneumonia, unspecified organism Status: Acute Plan: Patient appears to be and hypoxemic respiratory failure patient 91% on room air and tachypnea Patient x-ray appears normal at this time however patient does act quite suspiciously for immediate heart pneumonia which we will treat. With IV antibiotics, bronchodilators and IV steroids given his symptoms. Patient also admits he had some cough after eating and a swallow eval is pending (2) Diabetes mellitus type 2 in nonobese Code(s): E11.9 - Type 2 diabetes mellitus without complications Status: Acute Plan: Stable on home medications, we will hold metformin while inpatient, he was sliding scale and ADA diet - Plan Pneumonia Slow and gradual improvement Continue DuoNeb's every 4 hours Continue budesonide nebs twice daily Continue with IV Solu-Medrol 60 mg every 6 hours Continue Robitussin with codeine IV fluids stopped Type 2 diabetes with hyperglycemia Steroid effect has increased his sugars to the 400s Increase sliding scale insulin for more adequate coverage Continue with diabetic diet h/o hypertension Continue carvedilol home dose
[2018-01-27] MEDS: MethylPREDNISolone Sod Succinate Inj 125 MG/2 ML Vial IV.PUSH SCH ×5 (00:07→23:22)
[2018-01-27] MEDS: guaiFENesin/Codeine Syrup 200 MG/20 MG 10 ML UDC PO PRN (05:15)
[2018-01-27 06:29] LABS: Hematocrit 40.3 % (39.0-51.0); Hemoglobin 13.2 gm/dL (13.0-17.0); Mean Corpuscular HGB Conc 32.8 % (32.0-36.0); Mean Corpuscular Hemoglobin 31.3 pg (27.0-34.0); Mean Corpuscular Volume 95.5 fL (80.0-100.0); Mean Platelet Volume 8.6 fL (7.0-11.0); Platelet Count 210 th/mm3 (150-450); Red Blood Count 4.23 mil/mm3 (4.50-5.90); Red Cell Distribution Width 13.6 % (11.6-17.2)
[2018-01-27 06:36] LABS: Potassium 4.5 meq/L (3.5-5.1)
[2018-01-27 06:39] LABS: Calcium 8.5 mg/dL (8.5-10.1)
[2018-01-27 06:40] LABS: Carbon Dioxide 32.2 meq/L (21.0-32.0)
[2018-01-27] MEDS: Insulin NovoLOG Aspart Correctional Sugar Inj SQ SCH ×4 (08:30→20:23)
[2018-01-27] MEDS: Carvedilol 12.5 MG Tablet PO SCH ×2 (08:43→20:23)
[2018-01-27] MEDS: Escitalopram 10 MG Tablet PO SCH (08:43)
[2018-01-27] MEDS: carBAMazepine 200 MG Tablet PO SCH ×2 (08:44→20:23)
[2018-01-27] MEDS: amLODIPine 5 MG Tablet PO SCH (08:44)
[2018-01-27] MEDS: Topiramate 25 MG Tablet PO SCH (08:44)
[2018-01-27] MEDS: Lisinopril 20 MG Tablet PO SCH (08:45)
[2018-01-27] MEDS: Azithromycin Inj 500 MG in Sodium Chlor 0.9% Inj 250 ML IV.SIG SCH (09:43)
--- NOTE | 2018-01-27 11:50 | P.PN ---
Subjective Interval history: Patient states he is breathing much easier today. He still experiences shortness of breath with ambulating short distances. He is no longer needing oxygen while sitting at rest. Physical Exam Vital signs: Vital Signs 01/26/18 12:00 01/26/18 15:00 01/26/18 16:00 Temperature 96.8 F L 96.5 F L Pulse Rate 65 65 62 Respiratory Rate 20 18 21 Blood Pressure 151/72 H 189/95 H Pulse Oximetry 95 95 01/26/18 19:19 01/26/18 20:22 01/26/18 23:33 Temperature 97.0 F L Pulse Rate 65 69 58 L Respiratory Rate 18 18 16 Blood Pressure 178/90 H Pulse Oximetry 92 L 94 L 01/27/18 00:00 01/27/18 03:14 01/27/18 03:30 Temperature 97.4 F L Pulse Rate 64 Respiratory Rate 18 Blood Pressure 166/86 H Pulse Oximetry 92 L 87 L 94 L 01/27/18 03:59 01/27/18 04:02 01/27/18 07:25 Temperature 96.5 F L Pulse Rate 62 79 Respiratory Rate 16 20 Blood Pressure 174/88 H Pulse Oximetry 95 93 L 01/27/18 07:28 01/27/18 11:29 Temperature 97.2 F L Pulse Rate 65 66 Respiratory Rate 19 20 Blood Pressure 155/86 H Pulse Oximetry 92 L 92 L Intake & Output 01/26/18 01/27/18 01/27/18 18:59 06:59 18:59 Intake Total 960 / 960 590 / 590 Output Total 1600 / 1600 450 / 450 Balance -640 / -640 140 / 140 Weight 92.2 kg Intake: IV 350 / 350 Azithromycin Inj 500 MG In NS 250 / 250 Inj 250 ML @ 250 mls/hr IV.SIG Q24H [facility] Rx#:[id number] Rocephin Inj 1,000 MG In NS Inj 100 / 100 100 ML @ 200 mls/hr IV.SIG Q24H [facility] Rx#:[id number] Oral 960 / 960 240 / 240 Output: Urine 1600 / 1600 450 / 450 Other: Date of Last Bowel Movement 01/26/18 # Bowel Movements 0 Narrative: GENERAL: Alert and oriented 3, no longer coughing constantly SKIN: Warm and dry. HEAD: Normocephalic. EYES: No scleral icterus. No injection or drainage. NECK: Supple, trachea midline. No JVD or lymphadenopathy. CARDIOVASCULAR: Regular rate and rhythm without murmurs, gallops, or rubs. RESPIRATORY: Mostly clear lungs today, scattered crackles, no wheezing, no more excessive work of breathing GASTROINTESTINAL: Abdomen soft, non-tender, nondistended. MUSCULOSKELETAL: No cyanosis, or edema. BACK: Nontender without obvious deformity. No CVA tenderness. Results - Labs CBC & Chem 7: 01/27/18 06:00 01/27/18 06:00 Laboratory Results - last 24 hr 01/26/18 01/26/18 01/26/18 13:27 18:44 22:13 WBC RBC Hgb Hct MCV MCH MCHC RDW Plt Count MPV Sodium Potassium Chloride Carbon Dioxide Anion Gap BUN Creatinine Estimated GFR POC Glucose 358 H 261 H 224 H Random Glucose Calcium 01/27/18 01/27/18 01/27/18 03:08 06:00 06:00 WBC 8.0 RBC 4.23 L Hgb 13.2 Hct 40.3 MCV 95.5 MCH 31.3 MCHC 32.8 RDW 13.6 Plt Count 210 MPV 8.6 Sodium 140 Potassium 4.5 Chloride 103 Carbon Dioxide 32.2 H Anion Gap 5 BUN 28 H Creatinine 1.30 Estimated GFR 53 L POC Glucose 224 H Random Glucose 294 H Calcium 8.5 01/27/18 08:18 WBC RBC Hgb Hct MCV MCH MCHC RDW Plt Count MPV Sodium Potassium Chloride Carbon Dioxide Anion Gap BUN Creatinine Estimated GFR POC Glucose 318 H Random Glucose Calcium Microbiology 01/23/18 09:05 Blood - Peripheral Aerobic Blood Culture - Preliminary No growth in 4 days 01/23/18 09:05 Blood - Peripheral Anaerobic Blood Culture - Preliminary No growth in 4 days 01/23/18 09:00 Blood - Peripheral Aerobic Blood Culture - Preliminary No growth in 4 days 01/23/18 09:00 Blood - Peripheral Anaerobic Blood Culture - Preliminary No growth in 4 days Assessment and Plan - Assessment (1) Pneumonia Code(s): J18.9 - Pneumonia, unspecified organism Status: Acute Plan: Patient appears to be and hypoxemic respiratory failure patient 91% on room air and tachypnea Patient x-ray appears normal at this time however patient does act quite suspiciously for immediate heart pneumonia which we will treat. With IV antibiotics, bronchodilators and IV steroids given his symptoms. Patient also admits he had some cough after eating and a swallow eval is pending (2) Diabetes mellitus type 2 in nonobese Code(s): E11.9 - Type 2 diabetes mellitus without complications Status: Acute Plan: Stable on home medications, we will hold metformin while inpatient, he was sliding scale and ADA diet - Plan Pneumonia Lungs are greatly improved today, congestive sounds reduced approximately 80% Continue DuoNeb's every 4 hours Continue budesonide nebs twice daily Continue with IV Solu-Medrol 60 mg every 6 hours Replaced Robitussin with codeine, with Tessalon Perles IV fluids stopped BPH Patient is experiencing dribbling of urine which is exacerbated by his codeine Will replace codeine cough syrup with Tessalon Perles Check PSA in the morning Type 2 diabetes with hyperglycemia Steroid effect has increased his sugars Increase sliding scale insulin for more adequate coverage Continue with diabetic diet h/o hypertension Continue carvedilol home dose
[2018-01-27] MEDS: Heparin - SQ 10,000 UNITS/ML Vial SQ SCH ×2 (12:24→23:23)
[2018-01-28] MEDS: Acetaminophen 325 MG Tablet PO PRN ×2 (01:57→14:56)
[2018-01-28] MEDS: Temazepam 15 MG Capsule PO PRN ×2 (02:09→20:16)
[2018-01-28] MEDS: Insulin NovoLOG Aspart Correctional Sugar Inj SQ SCH ×5 (04:20→20:17)
[2018-01-28] MEDS: MethylPREDNISolone Sod Succinate Inj 125 MG/2 ML Vial IV.PUSH SCH ×3 (05:09→20:16)
[2018-01-28] MEDS: Benzonatate 100 MG Capsule PO PRN (06:27)
[2018-01-28] MEDS: amLODIPine 5 MG Tablet PO SCH (08:56)
[2018-01-28] MEDS: Escitalopram 10 MG Tablet PO SCH (08:56)
[2018-01-28] MEDS: Lisinopril 20 MG Tablet PO SCH (08:56)
[2018-01-28] MEDS: carBAMazepine 200 MG Tablet PO SCH ×2 (08:57→20:16)
[2018-01-28] MEDS: Carvedilol 12.5 MG Tablet PO SCH ×2 (08:57→20:16)
[2018-01-28] MEDS: Topiramate 25 MG Tablet PO SCH (08:57)
[2018-01-28] MEDS: Azithromycin Inj 500 MG in Sodium Chlor 0.9% Inj 250 ML IV.SIG SCH (09:52)
[2018-01-28] MEDS: Heparin - SQ 10,000 UNITS/ML Vial SQ SCH ×2 (11:39→23:08)
--- NOTE | 2018-01-28 12:10 | P.PN ---
Subjective Interval history: Patient continues to improve daily. He is not able to ambulate off of oxygen without experiencing hypoxemia. Physical Exam Vital signs: Vital Signs 01/27/18 14:18 01/27/18 15:05 01/27/18 19:30 Temperature 97.2 F L Pulse Rate 66 Respiratory Rate 20 Blood Pressure 167/85 H Pulse Oximetry 95 92 L 93 L 01/27/18 20:00 01/28/18 00:00 01/28/18 07:26 Temperature 96.3 F L 96 F L Pulse Rate 64 61 61 Respiratory Rate 20 20 18 Blood Pressure 160/88 H 149/82 H Pulse Oximetry 91 L 92 L 92 L 01/28/18 07:33 01/28/18 11:06 Temperature 96.8 F L 97.3 F L Pulse Rate 70 68 Respiratory Rate 20 20 Blood Pressure 177/93 H 172/86 H Pulse Oximetry 92 L 92 L Intake & Output 01/27/18 01/28/18 01/28/18 18:59 06:59 18:59 Intake Total 960 / 960 550 / 550 350 / 350 Output Total 900 / 900 800 / 800 125 / 125 Balance 60 / 60 -250 / -250 225 / 225 Weight 94.4 kg Intake: IV 350 / 350 350 / 350 Azithromycin Inj 500 MG In NS 250 / 250 250 / 250 Inj 250 ML @ 250 mls/hr IV.SIG Q24H [facility] Rx#:[id number] Rocephin Inj 1,000 MG In NS Inj 100 / 100 100 / 100 100 ML @ 200 mls/hr IV.SIG Q24H [facility] Rx#:[id number] Oral 960 / 960 200 / 200 Output: Urine 900 / 900 800 / 800 125 / 125 Other: # Voids 1 1 Narrative: GENERAL: Alert and oriented 3, no longer coughing constantly SKIN: Warm and dry. HEAD: Normocephalic. EYES: No scleral icterus. No injection or drainage. NECK: Supple, trachea midline. No JVD or lymphadenopathy. CARDIOVASCULAR: Regular rate and rhythm without murmurs, gallops, or rubs. RESPIRATORY: Mostly clear lungs today, scattered crackles, no wheezing, no more excessive work of breathing GASTROINTESTINAL: Abdomen soft, non-tender, nondistended. MUSCULOSKELETAL: No cyanosis, or edema. BACK: Nontender without obvious deformity. No CVA tenderness. Results - Labs CBC & Chem 7: 07/21/18 06:00 01/27/18 06:00 Laboratory Results - last 24 hr 01/27/18 01/27/18 01/27/18 12:03 17:31 20:13 POC Glucose 343 H 226 H 274 H 01/28/18 01/28/18 01/28/18 04:12 08:09 11:38 POC Glucose 350 H 249 H 320 H Microbiology 01/23/18 09:05 Blood - Peripheral Aerobic Blood Culture - Final No growth in 5 days 01/23/18 09:05 Blood - Peripheral Anaerobic Blood Culture - Final No growth in 5 days 01/23/18 09:00 Blood - Peripheral Aerobic Blood Culture - Final No growth in 5 days 01/23/18 09:00 Blood - Peripheral Anaerobic Blood Culture - Final No growth in 5 days Assessment and Plan - Assessment (1) Pneumonia Code(s): J18.9 - Pneumonia, unspecified organism Status: Acute Plan: Patient appears to be and hypoxemic respiratory failure patient 91% on room air and tachypnea Patient x-ray appears normal at this time however patient does act quite suspiciously for immediate heart pneumonia which we will treat. With IV antibiotics, bronchodilators and IV steroids given his symptoms. Patient also admits he had some cough after eating and a swallow eval is pending (2) Diabetes mellitus type 2 in nonobese Code(s): E11.9 - Type 2 diabetes mellitus without complications Status: Acute Plan: Stable on home medications, we will hold metformin while inpatient, he was sliding scale and ADA diet - Plan Pneumonia Lungs remain clear sounding today Change DuoNeb's to as needed Continue budesonide nebs twice daily Reduce Solu-Medrol to daily Continue with Tessalon Perles BPH PSA is pending Type 2 diabetes with hyperglycemia Steroid effect has increased his sugars Increase sliding scale insulin for more adequate coverage Continue with diabetic diet h/o hypertension Continue carvedilol home dose
[2018-01-29] MEDS: Benzonatate 100 MG Capsule PO PRN ×2 (01:43→10:40)
[2018-01-29 06:39] LABS: Hematocrit 39.7 % (39.0-51.0); Hemoglobin 13.3 gm/dL (13.0-17.0); Mean Corpuscular HGB Conc 33.4 % (32.0-36.0); Mean Corpuscular Hemoglobin 31.5 pg (27.0-34.0); Mean Corpuscular Volume 94.3 fL (80.0-100.0); Mean Platelet Volume 8.7 fL (7.0-11.0); Platelet Count 206 th/mm3 (150-450); Red Blood Count 4.21 mil/mm3 (4.50-5.90); Red Cell Distribution Width 13.3 % (11.6-17.2); White Blood Count 9.4 th/mm3 (4.0-11.0)
[2018-01-29 06:47] LABS: Potassium 4.4 meq/L (3.5-5.1)
[2018-01-29 06:51] LABS: Calcium 8.1 mg/dL (8.5-10.1); Carbon Dioxide 29.6 meq/L (21.0-32.0)
[2018-01-29] MEDS: Insulin NovoLOG Aspart Correctional Sugar Inj SQ SCH ×4 (08:08→21:24)
[2018-01-29] MEDS: Carvedilol 12.5 MG Tablet PO SCH ×2 (08:45→21:27)
[2018-01-29] MEDS: Escitalopram 10 MG Tablet PO SCH (08:45)
[2018-01-29] MEDS: carBAMazepine 200 MG Tablet PO SCH ×2 (08:46→21:25)
[2018-01-29] MEDS: amLODIPine 5 MG Tablet PO SCH (08:46)
[2018-01-29] MEDS: Topiramate 25 MG Tablet PO SCH (08:47)
[2018-01-29] MEDS: MethylPREDNISolone Sod Succinate Inj 125 MG/2 ML Vial IV.PUSH SCH ×3 (08:50→21:28)
[2018-01-29] MEDS: Lisinopril 20 MG Tablet PO SCH (10:40)
[2018-01-29] MEDS: Azithromycin Inj 500 MG in Sodium Chlor 0.9% Inj 250 ML IV.SIG SCH (10:41)
[2018-01-29] MEDS: Heparin - SQ 10,000 UNITS/ML Vial SQ SCH ×2 (13:51→23:48)
--- NOTE | 2018-01-29 15:44 | P.PN ---
Subjective Interval history: Patient had some worsening of his cough and shortness of breath since steroids was reduced. He is back on oxygen today. Physical Exam Vital signs: Vital Signs 01/28/18 16:08 01/28/18 16:15 01/28/18 20:00 Temperature 96.1 F L Pulse Rate 60 Respiratory Rate 18 Blood Pressure 183/107 H 176/96 H 150/80 H Pulse Oximetry 91 L 01/28/18 20:25 01/29/18 00:00 01/29/18 07:20 Temperature 97.4 F L Pulse Rate 72 60 60 Respiratory Rate 20 18 12 Blood Pressure 133/75 Pulse Oximetry 94 L 95 96 01/29/18 08:00 01/29/18 12:00 01/29/18 13:51 Temperature 98.2 F 97.8 F Pulse Rate 60 61 Respiratory Rate 20 21 Blood Pressure 182/97 H 170/93 H 157/82 H Pulse Oximetry 93 L 95 Intake & Output 01/28/18 01/29/18 01/29/18 18:59 06:59 18:59 Intake Total 1190 / 1190 240 / 240 710 / 710 Output Total 1225 / 1225 1500 / 1500 200 / 200 Balance -35 / -35 -1260 / -1260 510 / 510 Weight 94.4 kg Intake: IV 350 / 350 350 / 350 Azithromycin Inj 500 MG In NS 250 / 250 250 / 250 Inj 250 ML @ 250 mls/hr IV.SIG Q24H JESSICA Rx#:[id number] Rocephin Inj 1,000 MG In NS Inj 100 / 100 100 / 100 100 ML @ 200 mls/hr IV.SIG Q24H JESSICA Rx#:[id number] Oral 840 / 840 240 / 240 360 / 360 Output: Urine 1225 / 1225 1500 / 1500 200 / 200 Other: # Voids 1 # Bowel Movements 2 Narrative: GENERAL: Alert and oriented 3, no longer coughing constantly SKIN: Warm and dry. HEAD: Normocephalic. EYES: No scleral icterus. No injection or drainage. NECK: Supple, trachea midline. No JVD or lymphadenopathy. CARDIOVASCULAR: Regular rate and rhythm without murmurs, gallops, or rubs. RESPIRATORY: Recurrence of pervasive congestive sounds occupying approximately 70% of lung, scattered mild wheezing GASTROINTESTINAL: Abdomen soft, non-tender, nondistended. MUSCULOSKELETAL: No cyanosis, or edema. BACK: Nontender without obvious deformity. No CVA tenderness. Results - Labs CBC & Chem 7: 01/29/18 05:38 01/29/18 05:38 Laboratory Results - last 24 hr 01/28/18 01/28/18 01/29/18 16:07 20:10 03:16 WBC RBC Hgb Hct MCV MCH MCHC RDW Plt Count MPV Sodium Potassium Chloride Carbon Dioxide Anion Gap BUN Creatinine Estimated GFR POC Glucose 237 H 403 H 252 H Random Glucose Calcium 01/29/18 01/29/18 01/29/18 05:38 05:38 07:27 WBC 9.4 RBC 4.21 L Hgb 13.3 Hct 39.7 MCV 94.3 MCH 31.5 MCHC 33.4 RDW 13.3 Plt Count 206 MPV 8.7 Sodium 138 Potassium 4.4 Chloride 103 Carbon Dioxide 29.6 Anion Gap 5 BUN 36 H Creatinine 1.30 Estimated GFR 53 L POC Glucose 270 H Random Glucose 333 H Calcium 8.1 L 01/29/18 11:35 WBC RBC Hgb Hct MCV MCH MCHC RDW Plt Count MPV Sodium Potassium Chloride Carbon Dioxide Anion Gap BUN Creatinine Estimated GFR POC Glucose 221 H Random Glucose Calcium Assessment and Plan - Assessment (1) Pneumonia Code(s): J18.9 - Pneumonia, unspecified organism Status: Acute Plan: Patient appears to be and hypoxemic respiratory failure patient 91% on room air and tachypnea Patient x-ray appears normal at this time however patient does act quite suspiciously for immediate heart pneumonia which we will treat. With IV antibiotics, bronchodilators and IV steroids given his symptoms. Patient also admits he had some cough after eating and a swallow eval is pending (2) Diabetes mellitus type 2 in nonobese Code(s): E11.9 - Type 2 diabetes mellitus without complications Status: Acute Plan: Stable on home medications, we will hold metformin while inpatient, he was sliding scale and ADA diet - Plan Pneumonia Recurrence of lung congestion following reduction of Solu-Medrol dose Continue DuoNeb's to as needed Continue budesonide nebs twice daily Increase Solu-Medrol to 60 mg 4 times daily again Change Tessalon Perles to Robitussin with codeine BPH PSA is pending Type 2 diabetes with hyperglycemia Steroid effect has increased his sugars Continue medium sliding scale insulin for more adequate coverage Continue with diabetic diet h/o hypertension Continue carvedilol home dose
[2018-01-29] MEDS: guaiFENesin/Codeine Syrup 200 MG/20 MG 10 ML UDC PO PRN (21:26)
[2018-01-29] MEDS: Acetaminophen 325 MG Tablet PO PRN (21:26)
[2018-01-29] MEDS: Temazepam 15 MG Capsule PO PRN (22:19)
[2018-01-30] MEDS: MethylPREDNISolone Sod Succinate Inj 125 MG/2 ML Vial IV.PUSH SCH ×4 (04:11→22:05)
[2018-01-30 04:45] LABS: Free PSA/PSA Ratio 0.27 ratio
[2018-01-30] MEDS: guaiFENesin/Codeine Syrup 200 MG/20 MG 10 ML UDC PO PRN (06:18)
[2018-01-30] MEDS: Acetaminophen 325 MG Tablet PO PRN ×2 (06:21→20:48)
[2018-01-30] MEDS: Escitalopram 10 MG Tablet PO SCH (08:04)
[2018-01-30] MEDS: Lisinopril 20 MG Tablet PO SCH (08:04)
[2018-01-30] MEDS: carBAMazepine 200 MG Tablet PO SCH ×2 (08:04→20:47)
[2018-01-30] MEDS: amLODIPine 5 MG Tablet PO SCH (08:05)
[2018-01-30] MEDS: Carvedilol 12.5 MG Tablet PO SCH ×2 (08:05→20:48)
[2018-01-30] MEDS: Topiramate 25 MG Tablet PO SCH (08:05)
[2018-01-30] MEDS: Insulin NovoLOG Aspart Correctional Sugar Inj SQ SCH ×4 (08:06→20:49)
[2018-01-30] MEDS: Azithromycin Inj 500 MG in Sodium Chlor 0.9% Inj 250 ML IV.SIG SCH (09:19)
[2018-01-30] MEDS: Heparin - SQ 10,000 UNITS/ML Vial SQ SCH ×2 (10:38→22:46)
--- NOTE | 2018-01-30 14:55 | P.PN ---
Subjective Interval history: Some improvement with breathing, resting comfortably off of oxygen again. Still coughing. Physical Exam Vital signs: Vital Signs 01/29/18 16:00 01/29/18 18:29 01/29/18 19:18 Temperature 97.0 F L Pulse Rate 60 62 60 Respiratory Rate 21 18 Blood Pressure 188/98 H 144/86 H Pulse Oximetry 95 94 L 01/29/18 20:39 01/30/18 00:00 01/30/18 07:20 Temperature 97.1 F L 97.4 F L Pulse Rate 61 60 73 Respiratory Rate 18 18 16 Blood Pressure 163/86 H 133/75 Pulse Oximetry 94 L 95 92 L 01/30/18 09:06 Temperature 98.5 F Pulse Rate 64 Respiratory Rate 18 Blood Pressure 170/100 H Pulse Oximetry 92 L Intake & Output 01/29/18 01/30/18 01/30/18 18:59 06:59 18:59 Intake Total 710 / 710 450 / 450 350 / 350 Output Total 1000 / 1000 1300 / 1300 Balance -290 / -290 -850 / -850 350 / 350 Weight 94.4 kg Intake: IV 350 / 350 350 / 350 Azithromycin Inj 500 MG In NS 250 / 250 250 / 250 Inj 250 ML @ 250 mls/hr IV.SIG Q24H JESSICA Rx#:[id number] Rocephin Inj 1,000 MG In NS Inj 100 / 100 100 / 100 100 ML @ 200 mls/hr IV.SIG Q24H JESSICA Rx#:[id number] Oral 360 / 360 450 / 450 Output: Urine 1000 / 1000 1300 / 1300 Other: Date of Last Bowel Movement 01/30/18 # Bowel Movements 1 Narrative: GENERAL: Alert and oriented 3, no longer coughing constantly SKIN: Warm and dry. HEAD: Normocephalic. EYES: No scleral icterus. No injection or drainage. NECK: Supple, trachea midline. No JVD or lymphadenopathy. CARDIOVASCULAR: Regular rate and rhythm without murmurs, gallops, or rubs. RESPIRATORY: Recurrence of pervasive congestive sounds occupying approximately 70% of lung, scattered mild wheezing GASTROINTESTINAL: Abdomen soft, non-tender, nondistended. MUSCULOSKELETAL: No cyanosis, or edema. BACK: Nontender without obvious deformity. No CVA tenderness. Results - Labs CBC & Chem 7: 01/29/18 05:38 01/29/18 05:38 Laboratory Results - last 24 hr 01/28/18 01/29/18 01/29/18 05:59 16:47 20:36 POC Glucose 229 H 386 H Free PSA 1.2 Total PSA 4.5 PSA Free/Total Ratio 0.27 01/30/18 01/30/18 07:28 11:29 POC Glucose 294 H 283 H Free PSA Total PSA PSA Free/Total Ratio Assessment and Plan - Assessment (1) Pneumonia Code(s): J18.9 - Pneumonia, unspecified organism Status: Acute Plan: Patient appears to be and hypoxemic respiratory failure patient 91% on room air and tachypnea Patient x-ray appears normal at this time however patient does act quite suspiciously for immediate heart pneumonia which we will treat. With IV antibiotics, bronchodilators and IV steroids given his symptoms. Patient also admits he had some cough after eating and a swallow eval is pending (2) Diabetes mellitus type 2 in nonobese Code(s): E11.9 - Type 2 diabetes mellitus without complications Status: Acute Plan: Stable on home medications, we will hold metformin while inpatient, he was sliding scale and ADA diet - Plan Pneumonia Recurrence of lung congestion improving with solu-medrol doses Continue DuoNeb's to as needed Continue budesonide nebs twice daily Continue Solu-Medrol to 60 mg 4 times daily again Change Tessalon Perles to Robitussin with codeine BPH PSA is within normal limits Codeine effect Type 2 diabetes with hyperglycemia Steroid effect has increased his sugars Continue medium sliding scale insulin for more adequate coverage Continue with diabetic diet h/o hypertension Continue carvedilol home dose
[2018-01-31] MEDS: guaiFENesin/Codeine Syrup 200 MG/20 MG 10 ML UDC PO PRN ×4 (02:37→22:52)
[2018-01-31] MEDS: MethylPREDNISolone Sod Succinate Inj 125 MG/2 ML Vial IV.PUSH SCH ×4 (03:54→21:19)
[2018-01-31] MEDS: Acetaminophen 325 MG Tablet PO PRN ×3 (07:37→20:24)
[2018-01-31] MEDS: Insulin NovoLOG Aspart Correctional Sugar Inj SQ SCH ×4 (08:16→20:37)
[2018-01-31] MEDS: amLODIPine 5 MG Tablet PO SCH (09:19)
[2018-01-31] MEDS: Lisinopril 20 MG Tablet PO SCH (09:20)
[2018-01-31] MEDS: Escitalopram 10 MG Tablet PO SCH (09:21)
[2018-01-31] MEDS: carBAMazepine 200 MG Tablet PO SCH ×2 (09:21→20:25)
[2018-01-31] MEDS: Topiramate 25 MG Tablet PO SCH (09:21)
[2018-01-31] MEDS: Carvedilol 12.5 MG Tablet PO SCH ×2 (09:21→20:26)
[2018-01-31] MEDS: Azithromycin Inj 500 MG in Sodium Chlor 0.9% Inj 250 ML IV.SIG SCH (09:55)
--- NOTE | 2018-01-31 11:59 | P.PN ---
Subjective Interval history: Patient reports that he is breathing more comfortably, able to ambulate without oxygen, still having cough which she controls with codeine. Physical Exam Vital signs: Vital Signs 01/30/18 15:04 01/30/18 16:00 01/30/18 19:25 Temperature 96.9 F L 98.0 F Pulse Rate 61 71 72 Respiratory Rate 16 16 18 Blood Pressure 165/78 H 161/85 H Pulse Oximetry 93 L 93 L 92 L 01/30/18 20:00 01/31/18 00:00 01/31/18 07:21 Temperature 97.4 F L 98.5 F Pulse Rate 64 60 61 Respiratory Rate 18 18 18 Blood Pressure 168/81 H 163/85 H Pulse Oximetry 90 L 94 L 92 L 01/31/18 08:00 01/31/18 08:05 01/31/18 11:48 Temperature 97.3 F L 97.3 F L Pulse Rate 62 60 Respiratory Rate 18 18 18 Blood Pressure 181/93 H 183/87 H Pulse Oximetry 92 L 91 L Intake & Output 01/30/18 01/31/18 01/31/18 18:59 06:59 18:59 Intake Total 1550 / 1550 350 / 350 Output Total 500 / 500 Balance 1550 / 1550 -500 / -500 350 / 350 Weight 94.4 kg Intake: IV 350 / 350 350 / 350 Azithromycin Inj 500 MG In NS 250 / 250 250 / 250 Inj 250 ML @ 250 mls/hr IV.SIG Q24H JESSICA Rx#:[id number] Rocephin Inj 1,000 MG In NS Inj 100 / 100 100 / 100 100 ML @ 200 mls/hr IV.SIG Q24H JESSICA Rx#:[id number] Oral 1200 / 1200 Output: Urine 500 / 500 Other: # Voids 3 Date of Last Bowel Movement 01/30/18 # Bowel Movements 0 Narrative: GENERAL: Alert and oriented 3, no longer coughing constantly SKIN: Warm and dry. HEAD: Normocephalic. EYES: No scleral icterus. No injection or drainage. NECK: Supple, trachea midline. No JVD or lymphadenopathy. CARDIOVASCULAR: Regular rate and rhythm without murmurs, gallops, or rubs. RESPIRATORY: scattered mild wheezing, aeration is better than previous 2 days GASTROINTESTINAL: Abdomen soft, non-tender, nondistended. MUSCULOSKELETAL: No cyanosis, or edema. BACK: Nontender without obvious deformity. No CVA tenderness. Results - Labs CBC & Chem 7: 01/29/18 05:38 01/29/18 05:38 Laboratory Results - last 24 hr 01/30/18 01/30/18 01/31/18 16:39 20:38 03:53 POC Glucose 252 H 298 H 291 H 01/31/18 01/31/18 07:41 11:02 POC Glucose 313 H 325 H Assessment and Plan - Assessment (1) Pneumonia Code(s): J18.9 - Pneumonia, unspecified organism Status: Acute Plan: Patient appears to be and hypoxemic respiratory failure patient 91% on room air and tachypnea Patient x-ray appears normal at this time however patient does act quite suspiciously for immediate heart pneumonia which we will treat. With IV antibiotics, bronchodilators and IV steroids given his symptoms. Patient also admits he had some cough after eating and a swallow eval is pending (2) Diabetes mellitus type 2 in nonobese Code(s): E11.9 - Type 2 diabetes mellitus without complications Status: Acute Plan: Stable on home medications, we will hold metformin while inpatient, he was sliding scale and ADA diet - Plan Pneumonia Recurrence of lung congestion improving with solu-medrol 4 times daily Continue DuoNeb's every 6 hours scheduled Continue budesonide nebs twice daily Continue Solu-Medrol to 60 mg 4 times daily again Continue Robitussin with codeine Not responding as expected, failed attempt to wean meds for discharge It seems there is some interstitial lung disease evident on x-ray, acting as more than a simple pneumonia Pulmonology consult placed BPH PSA is within normal limits Codeine effect Anxiety Patient is anxious about the idea of being home alone Type 2 diabetes with hyperglycemia Steroid effect has increased his sugars Continue medium sliding scale insulin for more adequate coverage Continue with diabetic diet h/o hypertension Continue carvedilol home dose
[2018-01-31] MEDS: Heparin - SQ 10,000 UNITS/ML Vial SQ SCH ×2 (12:29→22:47)
[2018-01-31] MEDS: DUONEB NEB SCH ×2 (18:06→21:06)
[2018-01-31 20:17] LABS: ABG Base Excess 2.3 mmol/L (-2-2); ABG PCO2 45 mmHg (38-42); ABG PO2 70 mmHg (61-120)
[2018-01-31] MEDS: Budesonide-Formoterol 160/4.5 MCG 6 GM Inhaler INH SCH (20:32)
[2018-01-31] MEDS: Temazepam 15 MG Capsule PO PRN (22:58)
[2018-01-31 23:34] LABS: INR 1.1 Ratio; Prothrombin Time 10.8 sec (9.8-11.6)
[2018-02-01] MEDS: DUONEB NEB SCH (03:53)
[2018-02-01] MEDS: MethylPREDNISolone Sod Succinate Inj 125 MG/2 ML Vial IV.PUSH SCH ×2 (04:07→09:58)
[2018-02-01 07:18] LABS: Hematocrit 40.7 % (39.0-51.0); Hemoglobin 13.6 gm/dL (13.0-17.0); Mean Corpuscular HGB Conc 33.5 % (32.0-36.0); Mean Corpuscular Volume 92.7 fL (80.0-100.0); Mean Platelet Volume 9.6 fL (7.0-11.0); Platelet Count 211 th/mm3 (150-450); Red Blood Count 4.39 mil/mm3 (4.50-5.90); Red Cell Distribution Width 13.7 % (11.6-17.2)
[2018-02-01 07:31] LABS: Potassium 4.5 meq/L (3.5-5.1)
[2018-02-01 07:35] LABS: Calcium 8.2 mg/dL (8.5-10.1); Carbon Dioxide 28.7 meq/L (21.0-32.0)
[2018-02-01] MEDS: Insulin NovoLOG Aspart Correctional Sugar Inj SQ SCH ×4 (08:28→21:05)
[2018-02-01] MEDS: Budesonide-Formoterol 160/4.5 MCG 6 GM Inhaler INH SCH ×2 (08:29→21:06)
[2018-02-01] MEDS: amLODIPine 5 MG Tablet PO SCH (08:30)
[2018-02-01] MEDS: Lisinopril 20 MG Tablet PO SCH (08:30)
[2018-02-01] MEDS: Carvedilol 12.5 MG Tablet PO SCH ×2 (08:31→21:04)
[2018-02-01] MEDS: Escitalopram 10 MG Tablet PO SCH (08:31)
[2018-02-01] MEDS: Topiramate 25 MG Tablet PO SCH (08:31)
[2018-02-01] MEDS: carBAMazepine 200 MG Tablet PO SCH ×2 (08:31→21:04)
--- NOTE | 2018-02-01 09:48 | MB ---
cc: Juana Perdomo MD DATE: 01/31/2018 REASON FOR CONSULTATION: Pneumonia and persistent cough. HISTORY OF PRESENT ILLNESS: This is an 82-year-old white male, nonsmoker, with a history of cough and congestion and chest pains, was admitted a week ago with persistent chest tightness and failed outpatient therapy for bronchitis. He was experiencing substernal pressure, and following admission to the hospital, a CT chest was done which demonstrated evidence of tiny nodules in the left lung field and mild atelectasis. The patient was treated with IV antibiotic therapy including Rocephin and Zithromax, and a followup chest x-ray was done which demonstrated ground glass infiltrates. The patient states he does not bring up any sputum, but he has a persistent cough and some wheezing. Denies hemoptysis and presently not running any fever. PAST HISTORY: Includes history of coronary artery disease and stenting and he also has had a history for pacemaker placement. The patient has no prior history of chronic lung disease, but has been treated for bronchitis in the past and allergies. There is a history of hypertension and kidney stone and he also has mild diabetes. He has an AICD in place with pacemaker. History includes a history for a DRY WALL INSTALLER shunt, which was put for a history of hydrocephalus. MEDICATIONS: 1. Amlodipine 7.5 mg daily. 2. Carbamazepine 200 mg b.i.d. 3. Coreg 12.5 mg b.i.d. 4. Plavix 75 mg a day. 5. Lexapro 10 mg daily. 6. Lisinopril 40 mg a day. 7. Metformin 500 mg b.i.d. 8. Nateglinide 60 mg t.i.d. 9. Januvia 100 mg a day. 10. Topamax 25 mg daily. HABITS: The patient never smoked. No alcohol use. 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 FAMILY HISTORY: Noncontributory. There is a history of hypertension. ALLERGIES: MORPHINE WITH AN ADVERSE REACTION. REVIEW OF SYSTEMS: The patient has had some weight loss. He has postnasal drip. He has cough, wheezing, chest tightness. Denies any abdominal pain, reflux, nausea, vomiting. No urinary symptoms. No leg or calf muscle pains. 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 PHYSICAL EXAMINATION: GENERAL: This elderly man is slightly overweight, mildly dyspneic. VITAL SIGNS: Blood pressure 130/60, pulse 80, respirations 22, temperature 98.2. HEENT: Head is normocephalic. Pupils reactive. Tongue is moist. Throat is injected. Nasal mucosa edematous. NECK: Supple, no bruits or thyroid enlargement or lymphadenopathy. CHEST: Increased AP diameter with diffuse wheezes throughout both lung walsh with occasional crackles at the right base. HEART: The heart sounds were regular, S1 and S2. No murmur. No S3. ABDOMEN: Soft, nontender. No organomegaly. The bowel sounds are active. EXTREMITIES: Mild varicosities, minimal edema. Decreased peripheral pulses. Reflexes are 1+ with no gross motor deficits. Cranial nerves grossly intact. RECTAL: Deferred. SKIN: No lesions noted. IMPRESSION: 1. Acute bronchitis with reactive airways disease. 2. Lung nodules, etiology undetermined. 3. Probable early basilar pneumonia. 4. Diabetes mellitus. 5. Hypertension. 6. Coronary artery disease. 7. Status post automatic implantable cardioverter-defibrillator placement. PLAN: The patient will be sent for a repeat chest x-ray. Coagulation profile was ordered. Blood gas studies to be done and bedside pulmonary functions with bronchodilators. We will continue with antibiotics including Rocephin 1 gram IV daily. Urine sent for legionella and pneumococcal antigen and we will consider a bronchoscopy to evaluate the lower airways and the persistent spasm. We will continue with Solu-Medrol 40 mg every 6 hours. Thank you, Dr. Hawkins, for this consultation. Juana Perdomo MD VJD/jn/ll , 06:49 AM , 07:02 AM
[2018-02-01] MEDS: Azithromycin Inj 500 MG in Sodium Chlor 0.9% Inj 250 ML IV.SIG SCH (09:58)
[2018-02-01] MEDS: Heparin - SQ 10,000 UNITS/ML Vial SQ SCH (12:29)
--- NOTE | 2018-02-01 12:31 | P.PNIM ---
Subjective Interval history: Patient seen in follow-up for acute respiratory failure and shortness of breath. From previous evaluation patient much improved. For bronchoscopy per pulmonology. Discussed with patient who is agreeable Physical Exam Vital signs: Vital Signs 01/31/18 14:38 01/31/18 16:00 01/31/18 20:00 Temperature 97.3 F L 97.8 F Pulse Rate 60 60 Respiratory Rate 18 18 18 Blood Pressure 183/87 H 179/100 H Pulse Oximetry 91 L 94 L 01/31/18 21:06 02/01/18 03:54 02/01/18 03:57 Temperature Pulse Rate 62 71 Respiratory Rate 18 18 Blood Pressure Pulse Oximetry 96 95 02/01/18 04:00 02/01/18 07:27 02/01/18 11:39 Temperature 96.1 F L 96.8 F L 96.9 F L Pulse Rate 62 63 62 Respiratory Rate 20 20 20 Blood Pressure 156/94 H 168/89 H 135/71 Pulse Oximetry 95 93 L 94 L Intake & Output 01/31/18 02/01/18 02/01/18 18:59 06:59 18:59 Intake Total 1270 / 1270 240 / 240 100 / 100 Output Total 700 / 700 500 / 500 Balance 570 / 570 -260 / -260 100 / 100 Weight 93.4 kg Intake: IV 350 / 350 100 / 100 Azithromycin Inj 500 MG In NS 250 / 250 Inj 250 ML @ 250 mls/hr IV.SIG Q24H JESSICA Rx#:[id number] Rocephin Inj 1,000 MG In NS Inj 100 / 100 100 / 100 100 ML @ 200 mls/hr IV.SIG Q24H JESSICA Rx#:[id number] Oral 920 / 920 240 / 240 Output: Urine 700 / 700 500 / 500 Other: # Voids 4 2 Date of Last Bowel Movement 01/30/18 01/30/16 # Bowel Movements 0 Narrative: GENERAL: Patient calm resting and without complaints SKIN: Warm and dry. No rashes or ecchymotic injuries EYES: Pupils equal and round. No scleral icterus. No injection or drainage. ENT: External ear exam normal. No acute nasal bleeding or discharge. Mucous membranes pink and moist. CARDIOVASCULAR: Regular rate and rhythm. No murmurs gallops or rubs appreciated RESPIRATORY: Improved airflow, rhonchi GASTROINTESTINAL: Abdomen soft, non-tender, nondistended. Hepatic and splenic margins not palpable. MUSCULOSKELETAL: Extremities without clubbing, cyanosis, or edema. No obvious deformities. NEUROLOGICAL: Awake and alert. No obvious cranial nerve deficits. Motor grossly within normal limits. Five out of 5 muscle strength in the arms and legs. Normal speech. Results - Labs CBC & Chem 7: 02/01/18 06:15 02/01/18 06:15 Laboratory Results - last 24 hr 01/31/18 01/31/18 01/31/18 16:38 20:10 20:22 WBC RBC Hgb Hct MCV MCH MCHC RDW Plt Count MPV PT INR Puncture Site Right brachial Patient Temperature 98.6 O2 Saturation 92 ABG pH 7.39 ABG pCO2 45 H ABG pO2 70 ABG HCO3 27 H ABG O2 Content 18.4 ABG Base Excess 2.3 H ABG Methemoglobin 0.5 Hemoglobin 14.2 Carboxyhemoglobin 1.1 O2 Delivery Device Room air Inspired O2 21 Critical Value No Sodium Potassium Chloride Carbon Dioxide Anion Gap BUN Creatinine Estimated GFR POC Glucose 398 H 328 H Random Glucose Calcium 01/31/18 02/01/18 02/01/18 22:52 06:15 06:15 WBC 12.0 H RBC 4.39 L Hgb 13.6 Hct 40.7 MCV 92.7 MCH 31.0 MCHC 33.5 RDW 13.7 Plt Count 211 MPV 9.6 PT 10.8 INR 1.1 Puncture Site Patient Temperature O2 Saturation ABG pH ABG pCO2 ABG pO2 ABG HCO3 ABG O2 Content ABG Base Excess ABG Methemoglobin Hemoglobin Carboxyhemoglobin O2 Delivery Device Inspired O2 Critical Value Sodium 138 Potassium 4.5 Chloride 102 Carbon Dioxide 28.7 Anion Gap 7 BUN 38 H Creatinine 1.20 Estimated GFR 58 L POC Glucose Random Glucose 238 H Calcium 8.2 L 02/01/18 02/01/18 07:50 11:01 WBC RBC Hgb Hct MCV MCH MCHC RDW Plt Count MPV PT INR Puncture Site Patient Temperature O2 Saturation ABG pH ABG pCO2 ABG pO2 ABG HCO3 ABG O2 Content ABG Base Excess ABG Methemoglobin Hemoglobin Carboxyhemoglobin O2 Delivery Device Inspired O2 Critical Value Sodium Potassium Chloride Carbon Dioxide Anion Gap BUN Creatinine Estimated GFR POC Glucose 233 H 358 H Random Glucose Calcium Assessment and Plan - Assessment (1) Pneumonia Code(s): J18.9 - Pneumonia, unspecified organism Status: Acute Plan: Continue with steroids, follow-up for bronchoscopy per pulmonary (2) Diabetes mellitus type 2 in nonobese Code(s): E11.9 - Type 2 diabetes mellitus without complications Status: Acute Plan: Continue with ADA diet, sliding scale and insulin supplemental tidac until steroids weaned
[2018-02-01] MEDS: Acetaminophen 325 MG Tablet PO PRN (12:32)
[2018-02-01] MEDS: MethylPREDNISolone Sod Succinate Inj 40 MG/ML Vial IV.PUSH SCH ×2 (14:28→21:04)
[2018-02-01] MEDS: Ibuprofen 600 MG Tablet PO PRN (15:12)
--- NOTE | 2018-02-01 17:23 | P.PN ---
Subjective Interval history: He has cough and some wheezing. Was scheduled for a bronchoscopy in am. Physical Exam Vital signs: Vital Signs 01/31/18 20:00 01/31/18 21:06 02/01/18 03:54 Temperature 97.8 F Pulse Rate 60 62 71 Respiratory Rate 18 18 18 Blood Pressure 179/100 H Pulse Oximetry 94 L 96 02/01/18 03:57 02/01/18 04:00 02/01/18 07:27 Temperature 96.1 F L 96.8 F L Pulse Rate 62 63 Respiratory Rate 20 20 Blood Pressure 156/94 H 168/89 H Pulse Oximetry 95 95 93 L 02/01/18 11:39 02/01/18 14:23 02/01/18 15:24 Temperature 96.9 F L 97.5 F L Pulse Rate 62 68 67 Respiratory Rate 20 18 20 Blood Pressure 135/71 158/78 H Pulse Oximetry 94 L 96 93 L 02/01/18 15:42 Temperature Pulse Rate Respiratory Rate 16 Blood Pressure Pulse Oximetry Intake & Output 01/31/18 02/01/18 02/01/18 18:59 06:59 18:59 Intake Total 1270 / 1270 240 / 240 350 / 350 Output Total 700 / 700 500 / 500 375 / 375 Balance 570 / 570 -260 / -260 -25 / -25 Weight 93.4 kg Intake: IV 350 / 350 350 / 350 Azithromycin Inj 500 MG In NS 250 / 250 250 / 250 Inj 250 ML @ 250 mls/hr IV.SIG Q24H JESSICA Rx#:[id number] Rocephin Inj 1,000 MG In NS Inj 100 / 100 100 / 100 100 ML @ 200 mls/hr IV.SIG Q24H JESSICA Rx#:[id number] Oral 920 / 920 240 / 240 Output: Urine 700 / 700 500 / 500 375 / 375 Other: # Voids 4 2 Date of Last Bowel Movement 01/30/18 01/30/16 # Bowel Movements 0 Narrative: GENERAL: Patient is an elderly w/m in no distress SKIN: Warm and dry. No rashes or ecchymotic injuries EYES: Pupils equal and round. No scleral icterus. No injection or drainage. ENT: External ear exam normal. No acute nasal bleeding or discharge. Mucous membranes pink and moist. CARDIOVASCULAR: Regular rate and rhythm. No murmurs gallops or rubs appreciated RESPIRATORY:Occ rhonchi and no crackles GASTROINTESTINAL: Abdomen soft, non-tender, nondistended. Hepatic and splenic margins not palpable. MUSCULOSKELETAL: Extremities without clubbing, cyanosis, or edema. No obvious deformities. NEUROLOGICAL: Awake and alert. No obvious cranial nerve deficits. Motor grossly within normal limits. Five out of 5 muscle strength in the arms and legs. Normal speech. Results - Labs CBC & Chem 7: 02/01/18 06:15 02/01/18 06:15 Laboratory Results - last 24 hr 01/31/18 01/31/18 01/31/18 20:10 20:22 22:52 WBC RBC Hgb Hct MCV MCH MCHC RDW Plt Count MPV PT 10.8 INR 1.1 Puncture Site Right brachial Patient Temperature 98.6 O2 Saturation 92 ABG pH 7.39 ABG pCO2 45 H ABG pO2 70 ABG HCO3 27 H ABG O2 Content 18.4 ABG Base Excess 2.3 H ABG Methemoglobin 0.5 Hemoglobin 14.2 Carboxyhemoglobin 1.1 O2 Delivery Device Room air Inspired O2 21 Critical Value No Sodium Potassium Chloride Carbon Dioxide Anion Gap BUN Creatinine Estimated GFR POC Glucose 328 H Random Glucose Calcium 02/01/18 02/01/18 02/01/18 06:15 06:15 07:50 WBC 12.0 H RBC 4.39 L Hgb 13.6 Hct 40.7 MCV 92.7 MCH 31.0 MCHC 33.5 RDW 13.7 Plt Count 211 MPV 9.6 PT INR Puncture Site Patient Temperature O2 Saturation ABG pH ABG pCO2 ABG pO2 ABG HCO3 ABG O2 Content ABG Base Excess ABG Methemoglobin Hemoglobin Carboxyhemoglobin O2 Delivery Device Inspired O2 Critical Value Sodium 138 Potassium 4.5 Chloride 102 Carbon Dioxide 28.7 Anion Gap 7 BUN 38 H Creatinine 1.20 Estimated GFR 58 L POC Glucose 233 H Random Glucose 238 H Calcium 8.2 L 02/01/18 02/01/18 11:01 16:04 WBC RBC Hgb Hct MCV MCH MCHC RDW Plt Count MPV PT INR Puncture Site Patient Temperature O2 Saturation ABG pH ABG pCO2 ABG pO2 ABG HCO3 ABG O2 Content ABG Base Excess ABG Methemoglobin Hemoglobin Carboxyhemoglobin O2 Delivery Device Inspired O2 Critical Value Sodium Potassium Chloride Carbon Dioxide Anion Gap BUN Creatinine Estimated GFR POC Glucose 358 H 324 H Random Glucose Calcium Microbiology 01/31/18 23:15 Urine - Random Urine Legionella Antigen - Final Presumptive negative for Legionella pneumophila serogroup 1 antigen in urine, suggesting no recent or recurrent infection. Infection due to Legionella cannot be ruled out since other serogroups and species may cause disease, antigen may not be present in urine in early infection, and the level of antigen present in the urine may be below the detection limit of the test. Assessment and Plan - Assessment (1) Asthma Code(s): J45.909 - Unspecified asthma, uncomplicated Status: Acute (2) Lung nodule, multiple Code(s): R91.8 - Other nonspecific abnormal finding of lung field Status: Acute (3) Pneumonia Code(s): J18.9 - Pneumonia, unspecified organism Status: Acute (4) Chest pain Code(s): R07.9 - Chest pain, unspecified Status: Acute (5) Lactic acidosis Code(s): E87.2 - Acidosis Status: Acute (6) Diabetes mellitus type 2 in nonobese Code(s): E11.9 - Type 2 diabetes mellitus without complications Status: Acute (7) Hypertension Code(s): I10 - Essential (primary) hypertension Status: Acute - Plan 1. Continue Antibiotics. 2. Solumedrol 40 mg IV Q6H 3. O2 2 L N/C 4. Will arrange Bronchoscopy in am, and Discussed risks and possible Complications 5. Continue Symbicort 160/4.5 mcg , 2 puffs BId 6. CBC,BMP ,Coag profile
[2018-02-01] MEDS: Temazepam 15 MG Capsule PO PRN (21:15)
[2018-02-02] MEDS: MethylPREDNISolone Sod Succinate Inj 40 MG/ML Vial IV.PUSH SCH ×4 (04:03→21:49)
[2018-02-02] MEDS: Lisinopril 20 MG Tablet PO SCH (08:30)
[2018-02-02] MEDS: amLODIPine 5 MG Tablet PO SCH (08:30)
[2018-02-02] MEDS: Escitalopram 10 MG Tablet PO SCH (08:30)
[2018-02-02] MEDS: carBAMazepine 200 MG Tablet PO SCH ×2 (08:31→21:49)
[2018-02-02] MEDS: Carvedilol 12.5 MG Tablet PO SCH ×2 (08:31→21:48)
[2018-02-02] MEDS: Budesonide-Formoterol 160/4.5 MCG 6 GM Inhaler INH SCH ×2 (08:33→22:01)
--- NOTE | 2018-02-02 09:03 | P.PNIM ---
Subjective Interval history: f/u; pneumonia in no acute distress. still has occasional cough. no fever. d/w the RN and no acute issues over night. Physical Exam Vital signs: Vital Signs 02/01/18 11:39 02/01/18 14:23 02/01/18 15:24 Temperature 96.9 F L 97.5 F L Pulse Rate 62 68 67 Respiratory Rate 20 18 20 Blood Pressure 135/71 158/78 H Pulse Oximetry 94 L 96 93 L 02/01/18 15:42 02/01/18 20:00 02/01/18 20:30 Temperature 97.9 F Pulse Rate 66 61 Respiratory Rate 16 17 Blood Pressure 164/88 H Pulse Oximetry 89 L 02/01/18 20:55 02/01/18 21:28 02/02/18 00:00 Temperature 97.9 F Pulse Rate 62 60 Respiratory Rate 18 16 17 Blood Pressure 159/85 H Pulse Oximetry 98 98 96 02/02/18 04:00 02/02/18 08:04 Temperature 97.8 F Pulse Rate 60 62 Respiratory Rate 17 16 Blood Pressure 156/82 H Pulse Oximetry 95 98 Intake & Output 02/01/18 02/02/18 02/02/18 18:59 06:59 18:59 Intake Total 1190 / 1190 240 / 240 Output Total 1375 / 1375 Balance -185 / -185 240 / 240 Weight 88.3 kg Intake: IV 350 / 350 Azithromycin Inj 500 MG In NS 250 / 250 Inj 250 ML @ 250 mls/hr IV.SIG Q24H [facility] Rx#:[id number] Rocephin Inj 1,000 MG In NS Inj 100 / 100 100 ML @ 200 mls/hr IV.SIG Q24H [facility] Rx#:[id number] Oral 840 / 840 240 / 240 Output: Urine 1375 / 1375 Other: # Voids 1 Date of Last Bowel Movement 01/30/16 - Constitutional no acute distress - Routine Respiratory Exam Present: CTA bilaterally - Routine Cardiovascular Exam Present: RRR - Routine Abdominal Exam Present: soft - Routine Extremities Exam Comments: no pedal edema. - Routine Neurological Exam Present: alert, oriented X3 Results - Labs CBC & Chem 7: 02/01/18 06:15 02/01/18 06:15 Laboratory Results - last 24 hr 02/01/18 02/01/18 02/01/18 11:01 16:04 19:51 POC Glucose 358 H 324 H 244 H Microbiology 01/31/18 23:15 Urine - Random Urine Legionella Antigen - Final Presumptive negative for Legionella pneumophila serogroup 1 antigen in urine, suggesting no recent or recurrent infection. Infection due to Legionella cannot be ruled out since other serogroups and species may cause disease, antigen may not be present in urine in early infection, and the level of antigen present in the urine may be below the detection limit of the test. Assessment and Plan - Assessment (1) Pneumonia Code(s): J18.9 - Pneumonia, unspecified organism Status: Acute Plan: (1) Pneumonia Code(s): J18.9 - Pneumonia, unspecified organism Status: Acute Plan: Continue with steroids, follow-up for bronchoscopy per pulmonary (2) Diabetes mellitus type 2 in nonobese Code(s): E11.9 - Type 2 diabetes mellitus without complications Status: Acute Plan: Continue with ADA diet, sliding scale and insulin supplemental tidac until steroids weaned (2) Diabetes mellitus type 2 in nonobese Code(s): E11.9 - Type 2 diabetes mellitus without complications Status: Acute Plan: Continue with ADA diet, sliding scale and insulin supplemental tidac until steroids weaned - Plan (1) Pneumonia Continue with steroids, follow-up for bronchoscopy per pulmonary (2) Diabetes mellitus type 2 in nonobese Continue with ADA diet, sliding scale and insulin supplemental. will add long acting insulin while inpatient. blood sugar levels expected to improve as steroid being tapered down. (3) Hypertension; resumed home meds.
[2018-02-02] MEDS: Topiramate 25 MG Tablet PO SCH (10:09)
--- NOTE | 2018-02-02 12:08 | MP ---
cc: Juana Perdomo MD DATE OF OPERATION: 02/02/2018 PROCEDURE: Bronchoscopy with brushing and washings. PREOPERATIVE DIAGNOSIS: Lung nodules and persistent cough. ANESTHESIA: General. POSTOPERATIVE DIAGNOSIS: Lung nodules and persistent cough. SURGEON: Dr. Albert Perdomo PROCEDURE AND FINDINGS: The patient was intubated under general anesthesia, following which, the Olympus IT-180 bronchoscope was used to visualize the bronchi. The scope was advanced through the endotracheal tube into the trachea. The trachea and michelle appeared normal. The scope was then advanced into the right mainstem and right upper lobe segmental bronchi. These bronchi demonstrated mucoid secretions and mild endobronchitis. Next, the scope was advanced into the right middle and right lower lobe segmental bronchi. These bronchi demonstrated mucoid secretions with mild mucosal edema, but no endobronchial lesions were seen. Saline washings and lavage were done. The scope was then advanced into the left mainstem and left upper lobe segmental bronchi. These bronchi demonstrated thick mucoid secretions and mild endobronchitis and mucosal edema. There were no endobronchial lesions seen. Brushings were done from here for cytology and micro. Saline washings and lavage were done. Next, the scope was advanced into the left lower lobe segmental bronchi. These bronchi demonstrated mucosal edema and moderate endobronchitis and mucoid secretions. These were suctioned out. No endobronchial masses were seen. Saline washings and lavage were done and the procedure was then terminated. The patient tolerated the procedure well. Juana Perdomo MD VJD/DL , 11:52 AM , 11:58 AM
--- NOTE | 2018-02-02 12:19 | XR ---
EXAM DATE: 02/02/2018 12:17 PM EDT AGE/SEX: 82 years / Male INDICATIONS: Evaluate for pneumothorax. CLINICAL DATA: This is the patient's subsequent encounter. Patient reports that signs and symptoms h ave been present for 2 days and indicates a pain score of 0/10. MEDICAL/SURGICAL HISTORY: Congestive heart failure. Diabetes mellitus type II. Cerebrovascula r disease. Hypertension. Myocardial infarction. Pacemaker. Cardiac stent. COMPARISON: [facility], CHEST 1V SINGLE AP, 01/25/2018. . FINDINGS: Pacemaker in good position. Shunt coursing down the right chest. Mild commentated cardiomegaly. No in filtrate. No pneumothorax. No failure CONCLUSION: Commentated cardiomegaly without pneumothorax or failure. Electronically signed by: Dm Coley MD 02/02/2018 12:18 PM EDT
[2018-02-02] MEDS ORDERED: HYDROmorphone PF Inj 2 MG/ML Vial ONE (12:31)
[2018-02-02] MEDS ORDERED: RESP: Lidocaine PF 4% 5 ML Neb NEB ONE (12:45)
[2018-02-02] MEDS: Insulin NovoLOG Aspart Correctional Sugar Inj SQ SCH ×4 (13:34→21:47)
[2018-02-02] MEDS: Azithromycin Inj 500 MG in Sodium Chlor 0.9% Inj 250 ML IV.SIG SCH (13:42)
[2018-02-02] MEDS: Acetaminophen 325 MG Tablet PO PRN (17:19)
[2018-02-02] MEDS ORDERED: Insulin Detemir Inj 1,000 UNIT/10 ML Vial SQ SCH (21:00)
[2018-02-03] MEDS: MethylPREDNISolone Sod Succinate Inj 40 MG/ML Vial IV.PUSH SCH ×4 (01:40→22:19)
[2018-02-03] MEDS: Ibuprofen 600 MG Tablet PO PRN ×3 (02:30→21:16)
[2018-02-03] MEDS: Temazepam 15 MG Capsule PO PRN ×2 (03:09→21:16)
[2018-02-03] MEDS: Insulin NovoLOG Aspart Correctional Sugar Inj SQ SCH ×4 (08:09→21:30)
[2018-02-03] MEDS: carBAMazepine 200 MG Tablet PO SCH ×2 (08:10→21:16)
[2018-02-03] MEDS: Carvedilol 12.5 MG Tablet PO SCH ×2 (08:11→21:16)
[2018-02-03] MEDS: Escitalopram 10 MG Tablet PO SCH (08:11)
[2018-02-03] MEDS: Lisinopril 20 MG Tablet PO SCH (08:11)
[2018-02-03] MEDS: Topiramate 25 MG Tablet PO SCH (08:12)
[2018-02-03] MEDS: amLODIPine 5 MG Tablet PO SCH (08:12)
[2018-02-03] MEDS: Budesonide-Formoterol 160/4.5 MCG 6 GM Inhaler INH SCH ×2 (08:16→21:31)
--- NOTE | 2018-02-03 09:40 | P.PNIM ---
Subjective Interval history: f/u; pneumonia in no acute distress. sob continues to improve. has occasional cough and complaining of some sore throat. no fever. d/w the RN at the bedside. Physical Exam Vital signs: Vital Signs 02/02/18 10:35 02/02/18 12:00 02/02/18 12:15 Temperature 97.8 F 98 F Pulse Rate 59 L 69 69 Respiratory Rate 18 25 H 24 Blood Pressure 156/92 H 122/78 119/61 Pulse Oximetry 97 94 L 97 02/02/18 12:30 02/02/18 12:45 02/02/18 16:00 Temperature 97.5 F L Pulse Rate 69 64 59 L Respiratory Rate 24 15 18 Blood Pressure 117/56 L 122/66 164/87 H Pulse Oximetry 97 93 L 95 02/02/18 19:00 02/02/18 19:50 02/02/18 20:00 Temperature 97.7 F Pulse Rate 67 65 Respiratory Rate 18 18 Blood Pressure 159/78 H Pulse Oximetry 98 94 L 95 02/03/18 00:00 02/03/18 04:00 02/03/18 07:46 Temperature 98 F 97.8 F Pulse Rate 59 L 60 60 Respiratory Rate 17 18 12 Blood Pressure 148/70 H 170/83 H Pulse Oximetry 95 94 L 96 Intake & Output 02/02/18 02/03/18 02/03/18 18:59 06:59 18:59 Intake Total 100 / 100 355 / 355 Output Total 800 / 800 800 / 800 Balance -700 / -700 -445 / -445 Weight 88.3 kg Intake: IV 100 / 100 Rocephin Inj 1,000 MG In NS Inj 100 / 100 100 ML @ 200 mls/hr IV.SIG Q24H [facility] Rx#:[id number] Oral 355 / 355 Output: Urine 800 / 800 800 / 800 - Constitutional no acute distress - Routine Respiratory Exam Present: CTA bilaterally - Routine Cardiovascular Exam Present: RRR - Routine Abdominal Exam Present: soft - Routine Extremities Exam Comments: no pedal edema. - Routine Neurological Exam Present: alert, oriented X3 Results - Labs CBC & Chem 7: 02/01/18 06:15 02/01/18 06:15 Laboratory Results - last 24 hr 02/01/18 02/02/18 02/02/18 06:15 06:00 10:02 POC Glucose 287 H Hemoglobin A1c 8.0 H LANG Screen Neg 02/02/18 02/02/18 02/02/18 12:05 17:30 21:42 POC Glucose 313 H 294 H 401 H Hemoglobin A1c LANG Screen 02/03/18 07:55 POC Glucose 300 H Hemoglobin A1c LANG Screen Microbiology 02/02/18 11:38 Bronchial Washings - Bronchial Fungal Smear - Final No fungal elements seen 02/02/18 11:38 Bronchial - Bronchial Gram Stain - Final - Imaging Impressions Chest X-Ray 02/02/18 11:49 CONCLUSION: Commentated cardiomegaly without pneumothorax or failure. Assessment and Plan - Assessment (1) Pneumonia Code(s): J18.9 - Pneumonia, unspecified organism Status: Acute Plan: (1) Pneumonia Code(s): J18.9 - Pneumonia, unspecified organism Status: Acute Plan: improving. Continue with steroids and antibiotics. will taper down the IV steroids. s/p bronchoscopy; will f/u the culture and pathology. (2) Diabetes mellitus type 2 in nonobese Code(s): E11.9 - Type 2 diabetes mellitus without complications Status: Acute Plan: Continue with ADA diet, sliding scale and insulin supplemental started on long acting insulin while inpatient. blood sugar levels expected to improve as steroids being tapered down. (2) Diabetes mellitus type 2 in nonobese Code(s): E11.9 - Type 2 diabetes mellitus without complications Status: Acute Plan: Continue with ADA diet, sliding scale and insulin supplemental tidac until steroids weaned - Plan (1) Pneumonia Continue with steroids, follow-up for bronchoscopy per pulmonary (2) Diabetes mellitus type 2 in nonobese Continue with ADA diet, sliding scale and insulin supplemental. will add long acting insulin while inpatient. blood sugar levels expected to improve as steroid being tapered down. (3) Hypertension; resumed home meds. Discharge Planning: dc home within the next 24-48 hrs if continues to improve. case management for [facility].
--- NOTE | 2018-02-03 09:41 | P.DCO ---
- Physical Therapy Order: Evaluate and treat - Home Health Nursing Order: Medical education, Signs/symptoms of disease process, Nursing assessment with vital signs - Certification I have seen patient Sheri Yousif on 02/03/18. My clinical findings support the need for the requested home health care services because: Patient has SOB I certify that my clinical findings support that this patient is homebound because: Unsteady gait/balance
[2018-02-03] MEDS: Azithromycin Inj 500 MG in Sodium Chlor 0.9% Inj 250 ML IV.SIG SCH (09:44)
--- NOTE | 2018-02-03 13:05 | P.PNPL ---
Subjective Interval history: Patient is sitting in chair in no acute resp distress. Afebrile. States his breathing is better. Reports dry cough. s/p Bronch with BAL yesterday Physical Exam Vital signs: Vital Signs 02/02/18 16:00 02/02/18 19:00 02/02/18 19:50 Temperature 97.5 F L Pulse Rate 59 L 67 Respiratory Rate 18 18 Blood Pressure 164/87 H Pulse Oximetry 95 98 94 L 02/02/18 20:00 02/03/18 00:00 02/03/18 04:00 Temperature 97.7 F 98 F 97.8 F Pulse Rate 65 59 L 60 Respiratory Rate 18 17 18 Blood Pressure 159/78 H 148/70 H 170/83 H Pulse Oximetry 95 95 94 L 02/03/18 07:46 02/03/18 08:00 Temperature Pulse Rate 60 63 Respiratory Rate 12 Blood Pressure Pulse Oximetry 96 Intake & Output 02/02/18 02/03/18 02/03/18 18:59 06:59 18:59 Intake Total 350 / 350 355 / 355 100 / 100 Output Total 800 / 800 800 / 800 Balance -450 / -450 -445 / -445 100 / 100 Weight 88.3 kg Intake: IV 350 / 350 100 / 100 Azithromycin Inj 500 MG In NS 250 / 250 Inj 250 ML @ 250 mls/hr IV.SIG Q24H [facility] Rx#:[id number] Rocephin Inj 1,000 MG In NS Inj 100 / 100 100 / 100 100 ML @ 200 mls/hr IV.SIG Q24H [facility] Rx#:[id number] Oral 355 / 355 Output: Urine 800 / 800 800 / 800 - Constitutional no acute distress - Routine HEENT Exam Head: Present: normocephalic, atraumatic Eye: Present: EOMI, PERRL, normal accommodation, conjunctivae pink ENT: Present: mucous membranes moist - Routine Neck Exam Present: supple, full ROM, trachea midline - Routine Respiratory Exam Present: CTA bilaterally - Routine Cardiovascular Exam Present: RRR, S1, S2 - Routine Abdominal Exam Present: soft, normoactive bowel sounds - Routine Extremities Exam Present: full ROM, pulses intact - Routine Skin Exam Present: intact - Routine Neurological Exam Present: alert, oriented X3, CN II-XII intact - Routine Psychiatric Exam Present: normal affect Assessment and Plan - Assessment (1) Pneumonia Code(s): J18.9 - Pneumonia, unspecified organism Status: Acute (2) Diabetes mellitus type 2 in nonobese Code(s): E11.9 - Type 2 diabetes mellitus without complications Status: Acute - Plan 1)Resp Insuff 2)Bronchial asthma exac 3)Lung nodule, multiple on left 4)Diabetes mellitus type 2 in nonobese 5) Hypertension Plan Continue with oxygen keep sats >92% Bronchodilators (on Symbicort, add DuoNeb) Decrease Solumederol 40mg IV Q12 Continue with abx( Rocephin, Zithromax) Follow up on BAL results. Will need repeat CT chest as outpatient in 3-6 months to follow up on stability of lung nodule. Continue treatment plan.
[2018-02-03] MEDS ORDERED: MethylPREDNISolone Sod Succinate Inj 40 MG/ML Vial IV.PUSH SCH ×2 (14:00)
[2018-02-03] MEDS: guaiFENesin/Codeine Syrup 200 MG/20 MG 10 ML UDC PO PRN ×2 (14:46→21:16)
[2018-02-03] MEDS: Insulin Detemir Inj 1,000 UNIT/10 ML Vial SQ SCH (21:30)
[2018-02-04] MEDS: guaiFENesin/Codeine Syrup 200 MG/20 MG 10 ML UDC PO PRN ×3 (03:54→21:30)
[2018-02-04] MEDS: Ibuprofen 600 MG Tablet PO PRN ×3 (06:17→22:47)
--- NOTE | 2018-02-04 08:39 | P.PNIM ---
Subjective Interval history: f/u; pneumonia on oxygen via [place] still with mild sob. complaining of sore throat. no fever. Physical Exam Vital signs: Vital Signs 02/03/18 12:00 02/03/18 12:25 02/03/18 14:22 Temperature 97.4 F L Pulse Rate 60 59 L 60 Respiratory Rate 20 12 Blood Pressure 144/50 H Pulse Oximetry 96 02/03/18 16:00 02/03/18 20:00 02/03/18 21:44 Temperature 97.5 F L 97.7 F Pulse Rate 59 L 70 63 Respiratory Rate 20 20 16 Blood Pressure 140/69 154/81 H Pulse Oximetry 96 94 L 94 L 02/04/18 00:00 02/04/18 04:00 02/04/18 04:08 Temperature 97.3 F L 97.8 F Pulse Rate 60 60 60 Respiratory Rate 20 18 16 Blood Pressure 140/76 147/73 H Pulse Oximetry 95 95 Intake & Output 02/03/18 02/04/18 02/04/18 18:59 06:59 18:59 Intake Total 1310 / 1310 620 / 620 Output Total 800 / 800 1000 / 1000 Balance 510 / 510 -380 / -380 Weight 86.3 kg Intake: IV 350 / 350 Azithromycin Inj 500 MG In NS 250 / 250 Inj 250 ML @ 250 mls/hr IV.SIG Q24H [facility] Rx#:[id number] Rocephin Inj 1,000 MG In NS Inj 100 / 100 100 ML @ 200 mls/hr IV.SIG Q24H [facility] Rx#:[id number] Oral 960 / 960 620 / 620 Output: Urine 800 / 800 1000 / 1000 Other: # Voids 4 # Bowel Movements 0 - Constitutional no acute distress - Routine Respiratory Exam Present: CTA bilaterally - Routine Cardiovascular Exam Present: RRR - Routine Abdominal Exam Present: soft - Routine Extremities Exam Comments: no pedal edema. - Routine Neurological Exam Present: alert, oriented X3 Results - Labs CBC & Chem 7: 02/01/18 06:15 02/01/18 06:15 Laboratory Results - last 24 hr 02/03/18 02/03/18 02/03/18 12:33 16:19 21:19 POC Glucose 420 H 261 H 280 H 02/04/18 07:18 POC Glucose 226 H Microbiology 02/02/18 11:38 Bronchial - Bronchial Gram Stain - Final 02/02/18 11:38 Bronchial - Bronchial Bronchial Culture - Preliminary Immature growth - reincubate 02/02/18 11:38 Bronchial Brushings - Left Upper Lobe Bronchial [place] Culture - Preliminary No growth in 24 hours Assessment and Plan - Assessment (1) Pneumonia Code(s): J18.9 - Pneumonia, unspecified organism Status: Acute Plan: (1) Pneumonia Code(s): J18.9 - Pneumonia, unspecified organism Status: Acute Plan: improving. Continue with steroids and antibiotics. will taper down the IV steroids. s/p bronchoscopy; will f/u the culture and pathology. (2) Diabetes mellitus type 2 in nonobese Code(s): E11.9 - Type 2 diabetes mellitus without complications Status: Acute Plan: Continue with ADA diet, sliding scale and insulin supplemental started on long acting insulin while inpatient. blood sugar levels expected to improve as steroids being tapered down. - Plan (1) Pneumonia Continue with steroids and antibiotics, follow-up for bronchoscopy per pulmonary ; will taper down the IV steroids- walk test today. (2) Diabetes mellitus type 2 in nonobese Continue with ADA diet, sliding scale and insulin supplemental. added long acting insulin while inpatient. blood sugar levels expected to improve as steroid being tapered down. (3) Hypertension; resumed home meds. DVT prophylaxis; subq Lovenox Discharge Planning: dc home within the next 24-48 hrs if continues to improve and cleared by pulmonary. case management for [facility]. walk test today.
[2018-02-04] MEDS: Lisinopril 20 MG Tablet PO SCH (09:02)
[2018-02-04] MEDS: Carvedilol 12.5 MG Tablet PO SCH ×2 (09:03→21:31)
[2018-02-04] MEDS: amLODIPine 5 MG Tablet PO SCH (09:03)
[2018-02-04] MEDS: Escitalopram 10 MG Tablet PO SCH (09:03)
[2018-02-04] MEDS: carBAMazepine 200 MG Tablet PO SCH ×2 (09:03→21:31)
[2018-02-04] MEDS: Insulin NovoLOG Aspart Correctional Sugar Inj SQ SCH ×4 (09:04→21:37)
[2018-02-04] MEDS: Enoxaparin Inj 40 MG/0.4 ML Syringe SQ SCH (09:04)
[2018-02-04] MEDS: MethylPREDNISolone Sod Succinate Inj 40 MG/ML Vial IV.PUSH SCH ×2 (09:05→21:31)
[2018-02-04] MEDS: Topiramate 25 MG Tablet PO SCH (09:06)
[2018-02-04] MEDS: Budesonide-Formoterol 160/4.5 MCG 6 GM Inhaler INH SCH ×2 (09:06→21:32)
[2018-02-04] MEDS: Azithromycin Inj 500 MG in Sodium Chlor 0.9% Inj 250 ML IV.SIG SCH (09:55)
--- NOTE | 2018-02-04 11:15 | P.PNPL ---
Subjective Interval history: Patient is sitting in chair in NAD, reports dry cough. Physical Exam Vital signs: Vital Signs 02/03/18 12:00 02/03/18 12:25 02/03/18 14:22 Temperature 97.4 F L Pulse Rate 60 59 L 60 Respiratory Rate 20 12 Blood Pressure 144/50 H Pulse Oximetry 96 02/03/18 16:00 02/03/18 20:00 02/03/18 21:44 Temperature 97.5 F L 97.7 F Pulse Rate 59 L 70 63 Respiratory Rate 20 20 16 Blood Pressure 140/69 154/81 H Pulse Oximetry 96 94 L 94 L 02/04/18 00:00 02/04/18 04:00 02/04/18 04:08 Temperature 97.3 F L 97.8 F Pulse Rate 60 60 60 Respiratory Rate 20 18 16 Blood Pressure 140/76 147/73 H Pulse Oximetry 95 95 02/04/18 08:00 02/04/18 09:03 Temperature Pulse Rate 67 67 Respiratory Rate 12 12 Blood Pressure Pulse Oximetry 98 Intake & Output 02/03/18 02/04/18 02/04/18 18:59 06:59 18:59 Intake Total 1310 / 1310 620 / 620 100 / 100 Output Total 800 / 800 1000 / 1000 Balance 510 / 510 -380 / -380 100 / 100 Weight 86.3 kg Intake: IV 350 / 350 100 / 100 Azithromycin Inj 500 MG In NS 250 / 250 Inj 250 ML @ 250 mls/hr IV.SIG Q24H [facility] Rx#:[id number] Rocephin Inj 1,000 MG In NS Inj 100 / 100 100 / 100 100 ML @ 200 mls/hr IV.SIG Q24H [facility] Rx#:[id number] Oral 960 / 960 620 / 620 Output: Urine 800 / 800 1000 / 1000 Other: # Voids 4 Date of Last Bowel Movement 01/30/16 # Bowel Movements 0 - Constitutional no acute distress - Routine HEENT Exam Head: Present: normocephalic, atraumatic Eye: Present: EOMI, PERRL, normal accommodation, conjunctivae pink ENT: Present: mucous membranes moist - Routine Neck Exam Present: supple, full ROM, JVD, trachea midline - Routine Respiratory Exam Present: CTA bilaterally - Routine Cardiovascular Exam Present: RRR, S1, S2 - Routine Abdominal Exam Present: soft, normoactive bowel sounds - Routine Extremities Exam Present: full ROM, pulses intact - Routine Skin Exam Present: intact - Routine Neurological Exam Present: alert, oriented X3, CN II-XII intact - Routine Psychiatric Exam Present: normal affect Assessment and Plan - Assessment (1) Pneumonia Code(s): J18.9 - Pneumonia, unspecified organism Status: Acute (2) Diabetes mellitus type 2 in nonobese Code(s): E11.9 - Type 2 diabetes mellitus without complications Status: Acute - Plan 1)Resp Insuff 2)Bronchial asthma exac- improving 3)Lung nodule, multiple on left 4)Diabetes mellitus type 2 in nonobese 5) Hypertension Plan Continue with oxygen keep sats >92% Bronchodilators (on Symbicort, add DuoNeb) Solumederol 40mg IV Q12- taper steroids Continue with abx( Rocephin, Zithromax) Follow up on BAL results. Will need repeat CT chest as outpatient in 3-6 months to follow up on stability of lung nodule. Continue treatment plan.
[2018-02-04] MEDS: Temazepam 15 MG Capsule PO PRN (21:29)
[2018-02-04] MEDS: Insulin Detemir Inj 1,000 UNIT/10 ML Vial SQ SCH (21:38)
[2018-02-05] MEDS: guaiFENesin/Codeine Syrup 200 MG/20 MG 10 ML UDC PO PRN ×2 (06:25→18:30)
[2018-02-05] MEDS: Ibuprofen 600 MG Tablet PO PRN ×2 (06:26→21:33)
[2018-02-05] MEDS: Insulin NovoLOG Aspart Correctional Sugar Inj SQ SCH ×4 (09:01→21:35)
[2018-02-05] MEDS: Lisinopril 20 MG Tablet PO SCH (09:02)
[2018-02-05] MEDS: Topiramate 25 MG Tablet PO SCH (09:02)
[2018-02-05] MEDS: Escitalopram 10 MG Tablet PO SCH (09:03)
[2018-02-05] MEDS: Carvedilol 12.5 MG Tablet PO SCH ×2 (09:03→21:33)
[2018-02-05] MEDS: Budesonide-Formoterol 160/4.5 MCG 6 GM Inhaler INH SCH ×2 (09:03→21:34)
[2018-02-05] MEDS: carBAMazepine 200 MG Tablet PO SCH ×2 (09:03→21:34)
[2018-02-05] MEDS: amLODIPine 5 MG Tablet PO SCH (09:03)
[2018-02-05] MEDS: MethylPREDNISolone Sod Succinate Inj 40 MG/ML Vial IV.PUSH SCH (09:04)
[2018-02-05] MEDS: Enoxaparin Inj 40 MG/0.4 ML Syringe SQ SCH (09:04)
[2018-02-05] MEDS: Azithromycin Inj 500 MG in Sodium Chlor 0.9% Inj 250 ML IV.SIG SCH (09:47)
[2018-02-05] MEDS ORDERED: Phenol 1.4% 180 ML Spray Bottle OROPHARYNG PRN (11:24)
[2018-02-05] MEDS ORDERED: amLODIPine 5 MG Tablet PO ONE (11:30)
--- NOTE | 2018-02-05 15:10 | P.PN ---
Subjective Interval history: f/u; pneumonia on room air reports that SOB has improved complaining of sore throat. no fever. Physical Exam Vital signs: Vital Signs 02/04/18 16:00 02/04/18 17:30 02/04/18 20:00 Temperature 97.2 F L 98.3 F Pulse Rate 63 67 Respiratory Rate 18 20 Blood Pressure 159/81 H 161/77 H Pulse Oximetry 93 L 95 Pulse Oximetry [Exertion on Room Air] 87 L Pulse Oximetry [Resting on Room Air] 93 L 02/04/18 20:32 02/05/18 00:00 02/05/18 03:23 Temperature 97.2 F L Pulse Rate 65 59 L 63 Respiratory Rate 16 18 16 Blood Pressure 141/73 H Pulse Oximetry 96 Pulse Oximetry [Exertion on Room Air] Pulse Oximetry [Resting on Room Air] 02/05/18 04:00 02/05/18 06:19 02/05/18 08:00 Temperature 97.1 F L 97.4 F L Pulse Rate 59 L 61 61 Respiratory Rate 18 17 Blood Pressure 172/85 H 148/92 H Pulse Oximetry 96 94 L Pulse Oximetry [Exertion on Room Air] Pulse Oximetry [Resting on Room Air] 02/05/18 10:14 02/05/18 12:00 Temperature 97.6 F Pulse Rate 62 60 Respiratory Rate 14 18 Blood Pressure 134/81 Pulse Oximetry 94 L 93 L Pulse Oximetry [Exertion on Room Air] Pulse Oximetry [Resting on Room Air] Intake & Output 02/04/18 02/05/18 02/05/18 18:59 06:59 18:59 Intake Total 830 / 830 570 / 570 Output Total 800 / 800 1250 / 1250 Balance -680 / -680 Weight 87 kg Intake: IV 350 / 350 Azithromycin Inj 500 MG In NS 250 / 250 Inj 250 ML @ 250 mls/hr IV.SIG Q24H [facility] Rx#:[id number] Rocephin Inj 1,000 MG In NS Inj 100 / 100 100 ML @ 200 mls/hr IV.SIG Q24H [facility] Rx#:[id number] Oral 480 / 480 570 / 570 Output: Urine 800 / 800 1250 / 1250 Other: Date of Last Bowel Movement 01/30/16 02/04/18 02/04/18 # Bowel Movements 1 Narrative: GENERAL: Patient is an elderly w/m in no distress CARDIOVASCULAR: Regular rate and rhythm. RESPIRATORY: clear through out GASTROINTESTINAL: Abdomen soft, non-tender, nondistended. MUSCULOSKELETAL: Extremities without clubbing, cyanosis, or edema. No obvious deformities. NEUROLOGICAL: Awake and alert. No obvious cranial nerve deficits. Motor grossly within normal limits. Normal speech. Results - Labs CBC & Chem 7: 02/01/18 06:15 02/01/18 06:15 Laboratory Results - last 24 hr 02/04/18 02/04/18 02/05/18 16:35 21:30 08:29 POC Glucose 378 H 253 H 252 H 02/05/18 11:58 POC Glucose 362 H Microbiology 02/02/18 11:38 Bronchial Brushings - Left Upper Lobe Fungal Smear - Final 02/02/18 11:38 Bronchial Washings - Bronchial Acid Fast Bacilli Smear - Final No acid fast bacilli seen 02/02/18 11:38 Bronchial Brushings - Left Upper Lobe Acid Fast Bacilli Smear - Final No acid fast bacilli seen 02/02/18 11:38 Bronchial - Bronchial Gram Stain - Final 02/02/18 11:38 Bronchial - Bronchial Bronchial Culture - Final Rare growth normal respiratory pattie 02/02/18 11:38 Bronchial Brushings - Left Upper Lobe Bronchial [place] Culture - Final No growth in 48 hours Assessment and Plan - Plan (1) Pneumonia Continue azithromiacin DC IV steroids start prednisone walk test today. (2) Diabetes mellitus type 2 in nonobese Continue with ADA diet, sliding scale and insulin supplemental. continue levemir 10 unit SubQ QHS blood sugar levels expected to improve as steroid being tapered down. resume home Januvia and metformin (3) Hypertension increase norvasc to 10 mg PO daily DVT prophylaxis; subq Lovenox Discharge Planning: dc home within the next 24-48 hrs if continues to improve case management for [facility]. walk test today. Discussed the case with supervising physician Dr. Chen
--- NOTE | 2018-02-05 18:16 | P.PN ---
Subjective Interval history: Feels better today. No fever. Off O2 and On IV Zithromax, Prednisone . Bronchoscopy results were Negative Physical Exam Vital signs: Vital Signs 02/04/18 20:00 02/04/18 20:32 02/05/18 00:00 Temperature 98.3 F 97.2 F L Pulse Rate 67 65 59 L Respiratory Rate 20 16 18 Blood Pressure 161/77 H 141/73 H Pulse Oximetry 95 96 Pulse Oximetry [Exertion on Room Air] Pulse Oximetry [Resting on Room Air] 02/05/18 03:23 02/05/18 04:00 02/05/18 06:19 Temperature 97.1 F L Pulse Rate 63 59 L 61 Respiratory Rate 16 18 Blood Pressure 172/85 H Pulse Oximetry 96 Pulse Oximetry [Exertion on Room Air] Pulse Oximetry [Resting on Room Air] 02/05/18 08:00 02/05/18 10:14 02/05/18 12:00 Temperature 97.4 F L 97.6 F Pulse Rate 59 L 62 60 Respiratory Rate 17 14 18 Blood Pressure 148/92 H 134/81 Pulse Oximetry 94 L 94 L 93 L Pulse Oximetry [Exertion on Room Air] Pulse Oximetry [Resting on Room Air] 02/05/18 16:00 02/05/18 16:43 02/05/18 16:54 Temperature 97.5 F L Pulse Rate 64 65 Respiratory Rate 17 22 Blood Pressure 146/86 H Pulse Oximetry 92 L Pulse Oximetry [Exertion on Room Air] 88 L Pulse Oximetry [Resting on Room Air] 93 L Intake & Output 02/04/18 02/05/18 02/05/18 18:59 06:59 18:59 Intake Total 830 / 830 570 / 570 Output Total 800 / 800 1250 / 1250 Balance -680 / -680 Weight 87 kg Intake: IV 350 / 350 Azithromycin Inj 500 MG In NS 250 / 250 Inj 250 ML @ 250 mls/hr IV.SIG Q24H JESSICA Rx#:[id number] Rocephin Inj 1,000 MG In NS Inj 100 / 100 100 ML @ 200 mls/hr IV.SIG Q24H JESSICA Rx#:[id number] Oral 480 / 480 570 / 570 Output: Urine 800 / 800 1250 / 1250 Other: Date of Last Bowel Movement 01/30/16 02/04/18 02/04/18 # Bowel Movements 1 Narrative: GENERAL: Patient is an elderly w/m in no distress. Throat injected. CARDIOVASCULAR: Regular rate and rhythm. RESPIRATORY: occ Wheeze upper chest GASTROINTESTINAL: Abdomen soft, non-tender, nondistended. MUSCULOSKELETAL: Extremities without clubbing, cyanosis, or edema. No obvious deformities. NEUROLOGICAL: Awake and alert. No obvious cranial nerve deficits. Motor grossly within normal limits. Normal speech. Results - Labs CBC & Chem 7: 02/01/18 06:15 02/01/18 06:15 Laboratory Results - last 24 hr 02/04/18 02/05/18 02/05/18 21:30 08:29 11:58 POC Glucose 253 H 252 H 362 H Assessment and Plan - Assessment (1) Asthma Code(s): J45.909 - Unspecified asthma, uncomplicated Status: Acute (2) Lung nodule, multiple Code(s): R91.8 - Other nonspecific abnormal finding of lung field Status: Acute (3) Pneumonia Code(s): J18.9 - Pneumonia, unspecified organism Status: Acute (4) Chest pain Code(s): R07.9 - Chest pain, unspecified Status: Acute (5) Lactic acidosis Code(s): E87.2 - Acidosis Status: Acute (6) Diabetes mellitus type 2 in nonobese Code(s): E11.9 - Type 2 diabetes mellitus without complications Status: Acute (7) Hypertension Code(s): I10 - Essential (primary) hypertension Status: Acute - Plan 1. Continue Antibiotics. and stop IV Zithromax in am. 2. Cont predniosne 20 mg BID and taper over 3 weeks 3. O2 2 L N/C and do 6 min walk test 4. Home on PO meds 5. Continue Symbicort 160/4.5 mcg , 2 puffs BId 6. Will see as OP in 3 weeks
[2018-02-05] MEDS: predniSONE 20 MG Tablet PO SCH (21:34)
[2018-02-05] MEDS: Insulin Detemir Inj 1,000 UNIT/10 ML Vial SQ SCH (21:35)
[2018-02-06] MEDS: Temazepam 15 MG Capsule PO PRN (00:12)
[2018-02-06 08:54] LABS: Baso % (Auto) 0.1 % (0.0-2.0); Eos % (Auto) 0.5 % (0.0-4.0); Hematocrit 40.3 % (39.0-51.0); Hemoglobin 13.3 gm/dL (13.0-17.0); Lymph # (Auto) 0.6 th/mm3 (1.0-4.8); Lymph % (Auto) 6.7 % (9.0-44.0); Mean Corpuscular HGB Conc 32.9 % (32.0-36.0); Mean Corpuscular Hemoglobin 30.8 pg (27.0-34.0); Mean Corpuscular Volume 93.7 fL (80.0-100.0); Mean Platelet Volume 9.4 fL (7.0-11.0); Mono # (Auto) 0.3 th/mm3 (0.0-0.9); Mono % (Auto) 3.1 % (0.0-8.0); Neut % (Auto) 89.6 % (16.0-70.0); Platelet Count 168 th/mm3 (150-450); Red Cell Distribution Width 14.4 % (11.6-17.2); White Blood Count 8.9 th/mm3 (4.0-11.0)
[2018-02-06] MEDS: guaiFENesin/Codeine Syrup 200 MG/20 MG 10 ML UDC PO PRN (08:57)
[2018-02-06] MEDS: predniSONE 20 MG Tablet PO SCH (08:57)
[2018-02-06] MEDS: Ibuprofen 600 MG Tablet PO PRN (08:57)
[2018-02-06] MEDS: carBAMazepine 200 MG Tablet PO SCH (08:58)
[2018-02-06] MEDS: Carvedilol 12.5 MG Tablet PO SCH (08:58)
[2018-02-06] MEDS: Insulin NovoLOG Aspart Correctional Sugar Inj SQ SCH ×2 (08:59→12:51)
[2018-02-06] MEDS: Lisinopril 20 MG Tablet PO SCH (08:59)
[2018-02-06] MEDS: Escitalopram 10 MG Tablet PO SCH (08:59)
[2018-02-06] MEDS: Budesonide-Formoterol 160/4.5 MCG 6 GM Inhaler INH SCH (09:00)
[2018-02-06] MEDS ORDERED: amLODIPine 10 MG Tablet PO SCH (09:00)
[2018-02-06] MEDS: Enoxaparin Inj 40 MG/0.4 ML Syringe SQ SCH (09:00)
[2018-02-06] MEDS: Topiramate 25 MG Tablet PO SCH (09:00)
[2018-02-06] MEDS: Azithromycin Inj 500 MG in Sodium Chlor 0.9% Inj 250 ML IV.SIG SCH (09:08)
[2018-02-06 09:18] LABS: Carbon Dioxide 27.3 meq/L (21.0-32.0); Potassium 4.8 meq/L (3.5-5.1)
--- NOTE | 2018-02-06 09:54 | P.DS ---
Date of admission: 01/23/18 12:15 Primary care physician: PROVIDER NON STAFF Attending physician on discharge: Stephen Hopper Anticipated date of discharge: 02/06/18 Brief History from admission: This patient is an 82-year-old gentleman was primary care doctor and was given antibiotics (Augmentin, Tessalon and handheld inhaler) he did not have any improvement so he came to the emergency room. He has been quite dyspneic here in coughing and unable to take deep breaths. He reports chest pain with deep breathing. On exam he has increase breath sounds and has shortness of breath. He has not had any fevers or chills. Patient reports he has no medical history but review of records that show he has a history of diabetes and and has a history of coronary disease with stents DS: Diagnosis - Discharge Diagnosis (1) Pneumonia Status: Acute (2) Lactic acidosis Status: Acute (3) Diabetes mellitus type 2 in nonobese Status: Acute (4) Hypertension Status: Acute (5) Lung nodule, multiple Status: Acute DS: Summary Hospital Course: (1) Pneumonia Completed Rocephin and azithromiacin DC IV steroids start prednisone 02/05 walk test today completed patient requires home oxygen (2) Diabetes mellitus type 2 in nonobese Continue with ADA diet, sliding scale and insulin supplemental. blood sugar levels expected to improve as steroid being tapered down. resume home Januvia and metformin (3) Hypertension increase norvasc to 10 mg PO daily (4) lung nodule: Will need repeat CT chest as outpatient in 3-6 months to follow up on stability of lung nodule, with results to pulmonology Dr. Mosher DVT prophylaxis; subq Lovenox - Time Spent with Patient Total time spent providing and/or coordinating discharge services: - Quality: VTE Deep Vein Thrombosis/Pulmonary Embolism Present on Admission: No Exam Vital signs: Vital Signs 02/05/18 10:14 02/05/18 12:00 02/05/18 16:00 Temperature 97.6 F 97.5 F L Pulse Rate 62 60 64 Respiratory Rate 14 18 17 Blood Pressure 134/81 146/86 H Pulse Oximetry 94 L 93 L 92 L Pulse Oximetry [Exertion on Room Air] Pulse Oximetry [Exertion with Oxygen] Pulse Oximetry [Resting on Room Air] 02/05/18 16:43 02/05/18 16:54 02/05/18 20:00 Temperature 98.3 F Pulse Rate 65 60 Respiratory Rate 22 18 Blood Pressure 142/82 H Pulse Oximetry 97 Pulse Oximetry [Exertion on Room Air] 88 L Pulse Oximetry [Exertion with Oxygen] 98 Pulse Oximetry [Resting on Room Air] 93 L 02/05/18 21:48 02/05/18 22:08 02/06/18 00:00 Temperature 98.1 F Pulse Rate 72 65 Respiratory Rate 20 16 16 Blood Pressure 140/72 Pulse Oximetry 94 L 97 Pulse Oximetry [Exertion on Room Air] Pulse Oximetry [Exertion with Oxygen] Pulse Oximetry [Resting on Room Air] 02/06/18 03:35 02/06/18 04:00 02/06/18 07:58 Temperature 97.3 F L Pulse Rate 61 60 62 Respiratory Rate 18 16 17 Blood Pressure 121/61 Pulse Oximetry 94 L 96 Pulse Oximetry [Exertion on Room Air] Pulse Oximetry [Exertion with Oxygen] Pulse Oximetry [Resting on Room Air] Intake & Output 02/05/18 02/06/18 02/06/18 18:59 06:59 18:59 Intake Total 970 / 970 480 / 480 Output Total 900 / 900 500 / 500 Balance 70 / 70 -20 / -20 Intake: IV 250 / 250 Azithromycin Inj 500 MG In NS 250 / 250 Inj 250 ML @ 250 mls/hr IV.SIG Q24H JESSICA Rx#:[id number] Oral 720 / 720 480 / 480 Output: Urine 900 / 900 500 / 500 Other: Date of Last Bowel Movement 02/04/18 02/04/18 # Bowel Movements 0 Narrative: GENERAL: Patient is an elderly w/m in no distress CARDIOVASCULAR: Regular rate and rhythm. RESPIRATORY: clear through out GASTROINTESTINAL: Abdomen soft, non-tender, nondistended. MUSCULOSKELETAL: Extremities without clubbing, cyanosis, or edema. No obvious deformities. NEUROLOGICAL: Awake and alert. No obvious cranial nerve deficits. Motor grossly within normal limits. Normal speech. Results Procedures completed during hospitalization: 02/02 Bronchoscopy with brushing and washings with Dr. Mosher. Labs on day of discharge: Labs from last 24 hours 02/06/18 02/06/18 02/06/18 08:00 08:00 07:16 WBC 8.9 RBC 4.30 L Hgb 13.3 Hct 40.3 MCV 93.7 MCH 30.8 MCHC 32.9 RDW 14.4 Plt Count 168 MPV 9.4 Neut % (Auto) 89.6 H Lymph % (Auto) 6.7 L Harris % (Auto) 3.1 Eos % (Auto) 0.5 Baso % (Auto) 0.1 Neut # (Auto) 8.0 H Lymph # (Auto) 0.6 L Harris # (Auto) 0.3 Eos # (Auto) 0.0 Baso # (Auto) 0.0 WBC Differential . Differential Comment Auto diff final Sodium 138 Potassium 4.8 Chloride 104 Carbon Dioxide 27.3 Anion Gap 7 BUN 38 H Creatinine 1.30 Estimated GFR 53 L POC Glucose 255 H Random Glucose 294 H Calcium 8.0 L 02/05/18 02/05/18 02/05/18 19:39 18:08 11:58 WBC RBC Hgb Hct MCV MCH MCHC RDW Plt Count MPV Neut % (Auto) Lymph % (Auto) Harris % (Auto) Eos % (Auto) Baso % (Auto) Neut # (Auto) Lymph # (Auto) Harris # (Auto) Eos # (Auto) Baso # (Auto) WBC Differential Differential Comment Sodium Potassium Chloride Carbon Dioxide Anion Gap BUN Creatinine Estimated GFR POC Glucose 256 H 199 H 362 H Random Glucose Calcium - Impressions ITS Impressions Chest CT 01/24/18 00:00 CONCLUSION: 1. No acute pulmonary infiltrates. 2. There are 2 tiny 4 mm pulmonary nodule left midlung. Recommend a follow-up noncontrast CT thorax in 6 months to check stability. Chest X-Ray 02/02/18 11:49 CONCLUSION: Commentated cardiomegaly without pneumothorax or failure. Discharge Plan - Discharge Disposition Patient Disposition: 03 Discharge to SNF - Discharge Condition Condition: Stable - Discharge Order Discharge Orders: Discharge Order (Routine); Ordered 02/06/18 Ordered By: Viki Darden - Discharge Details Anticipated Discharge Date: 02/06/18 - Physicians Team Primary Care Provider: NON STAFF,PROVIDER Attending Provider: Stephen Hopper Other Providers: ; Frankie Mosher MD ; Nurse Oncall,Agency
[2018-02-06 14:23] VITALS: BP 115/57; TEMP 97.6; O2SAT 96
[2018-02-06 15:17] VITALS: PULSE 65; RESP 17
== END 2018-02-06 15:49 ==
LOC: PHED 08:36 → PHEDA 12:15 → PH3 13:20 → N04 02-01 19:25
PROVIDERS: ADMIT Family Medicine; ATTEND Family Medicine